=== PATIENT | male | born 1965 | race African-American/Black ===

== ENCOUNTER 2016-12-07 13:39 | Inpatient (IN) | payer OTHER ==
[~2016-12-07] VITALS: Ht 176.5 cm; Wt 50.9 kg
[~2016-12-07 13:39] MED LIST: METH-37 PO; OXYC-323 PO; TRAM-29 PO
[2016-12-07] MEDS ORDERED: IV NORMAL SALINE 1000ML BAG 1,000 ML IV ONE ×3 (14:30→15:15)
[2016-12-07] MEDS ORDERED: KETOROLAC TROMETHAMINE 30 MG/ML SYRINGE. IV ONE (14:30)
--- NOTE | 2016-12-07 14:41 | RAD ---
Exam: AP portable chest. History: Weakness, bilateral leg pain. Comparison: 05/16/2014. Findings: The heart and mediastinal structures are within normal limits for size. Lungs are without infiltrate. No pneumothorax or pleural effusion is appreciated. Emphysematous changes of lungs are seen. Both lungs demonstrate mild interstitial densities. Impression: 1. Bilateral interstitial densities. Findings cup represent fibrotic change versus atypical pneumonia.
[2016-12-07 14:51] LABS: BASO # 0.1 x10^3/uL (0.0-0.2); BASO % 1 % (0-3); EOS % 0 % (0-3); HEMATOCRIT 54.2 % (39.0-53.0); HEMOGLOBIN 18.2 g/dL (13.0-17.5); LYMPH # 0.6 x10^3/uL (1.0-4.8); LYMPH % 3 % (24-48); MEAN CORPUSCULAR HEMOGLOBIN 30 pg (25-35); MEAN CORPUSCULAR HGB CONC 34 g/dL (31-37); MEAN CORPUSCULAR VOLUME 89 fL (79-100); MONO % 9 % (0-9); NEUT % 88 % (31-73); PLATELET COUNT 288 x10^3/uL (140-400); RED BLOOD COUNT 6.06 x10^6/uL (4.30-5.70); RED CELL DISTRIBUTION WIDTH 13.9 % (11.5-14.5); WHITE BLOOD COUNT 19.4 x10^3/uL (4.0-11.0)
[2016-12-07 14:52] LABS: CALCIUM 7.9 mg/dL (8.5-10.1); CREATININE 6.1 mg/dL (0.7-1.3); GFR 11.9
[2016-12-07] MEDS ORDERED: CEFTRIAXONE 1GM IVPB FOR OMNI 50 ML IV ONE (15:15)
[2016-12-07] MEDS ORDERED: AZITHRMYCN 500MG IVPB FOR OMNI 250 ML IV ONE (15:15)
--- NOTE | 2016-12-07 15:15 | EKG ---
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
--- NOTE | 2016-12-07 15:27 | PHYS DOC ---
Past Medical History Past Medical History: Other Additional Past Medical Histor: hernia Past Surgical History: No Surgical History Alcohol Use: Occasionally Drug Use: Marijuana Adult General Chief Complaint Chief Complaint: WEAKNESS/GENERALIZED HPI HPI This is a 51-year-old male who presents with generalized malaise and weakness for the last week with decreased by mouth intake over this time as well. He denies any specific pain complaints but does state he has some mild numbness and tingling in his bilateral lower extremities. Patient states he does not follow with a primary doctor and is a regular smoker but denies any drug use. He does not take any medications. He reports subjective fever as well with his symptoms over the last several days. Review of Systems Review of Systems Constitutional: Has fever, has chills [] Eyes: Denies change in visual acuity, redness, or eye pain [] HENT: Denies nasal congestion or sore throat [] Respiratory: Has cough, has shortness of breath [] Cardiovascular: No additional information not addressed in HPI [] GI: Denies abdominal pain, nausea, vomiting, bloody stools or diarrhea [] : Denies dysuria or hematuria [] Musculoskeletal: Denies back pain or joint pain [] Integument: Denies rash or skin lesions [] Neurologic: Denies headache, focal weakness or sensory changes [] Endocrine: Denies polyuria or polydipsia [] Current Medications Current Medications Current Medications Medications (Trade) Dose Ordered Sig/[facility] Start Time Stop Time Status Last Admin Dose Admin Ketorolac Tromethamine 30 mg 30 mg 1X ONCE 12/07/16 14:30 12/07/16 14:31 DC 12/07/16 14:34 30 MG Sodium Chloride (Iv Sodium Chloride 0.9% 1000ml Bag) 1,000 ml @ 1,000 mls/hr 1X ONCE 12/07/16 14:30 12/07/16 15:29 DC 12/07/16 14:34 1,000 MLS/HR Allergies Allergies Allergies Coded Allergies Type Severity Reaction Last Updated Verified metoclopramide Adverse Reaction Intermediate hyperactivity 12/28/15 No Physical Exam Physical Exam Constitutional: Cachectic, poorly nourished, no acute distress, mildly toxic appearance. [] HENT: Normocephalic, atraumatic, bilateral external ears normal, oropharynx dry , no oral exudates, nose normal. [] Eyes: PERRLA, EOMI, conjunctiva normal, no discharge. [] Neck: Normal range of motion, no tenderness, supple, no stridor. [] Cardiovascular:Heart rate tachycardic with regular rhythm, no murmur [] Lungs & Thorax: Bilateral breath sounds clear to auscultation [] Abdomen: Bowel sounds normal, soft, no tenderness, no masses, no pulsatile masses. [] Skin: Warm, dry, no erythema, no rash. [] Back: No tenderness, no CVA tenderness. [] Extremities: No tenderness, no cyanosis, no clubbing, ROM intact, no edema. [] Neurologic: Alert and oriented X 3, normal motor function, normal sensory function, no focal deficits noted. [] Psychologic: Affect normal, judgement normal, mood normal. [] Current Patient Data Vital Signs Vital Signs Date Time Temp Pulse Resp B/P Pulse Ox O2 Delivery O2 Flow Rate FiO2 12/07/16 14:57 108 18 130/77 Room Air 12/07/16 14:27 91 12/07/16 14:02 97.6 97.6 Lab Values Laboratory Tests Test 12/07/16 14:25 12/07/16 14:30 White Blood Count 19.4x10^3/uL (4.0-11.0) H Red Blood Count 6.06x10^6/uL (4.30-5.70) H Hemoglobin 18.2g/dL (13.0-17.5) H Hematocrit 54.2% (39.0-53.0) H Mean Corpuscular Volume 89fL (79-100) Mean Corpuscular Hemoglobin 30pg (25-35) Mean Corpuscular Hemoglobin Concent 34g/dL (31-37) Red Cell Distribution Width 13.9% (11.5-14.5) Platelet Count 288x10^3/uL (140-400) Neutrophils (%) (Auto) 88% (31-73) H Lymphocytes (%) (Auto) 3% (24-48) L Monocytes (%) (Auto) 9% (0-9) Eosinophils (%) (Auto) 0% (0-3) Basophils (%) (Auto) 1% (0-3) Neutrophils # (Auto) 17.0x10^3uL (1.8-7.7) H Lymphocytes # (Auto) 0.6x10^3/uL (1.0-4.8) L Monocytes # (Auto) 1.7x10^3/uL (0.0-1.1) H Eosinophils # (Auto) 0.0x10^3/uL (0.0-0.7) Basophils # (Auto) 0.1x10^3/uL (0.0-0.2) Segmented Neutrophils % 71% (35-66) H Band Neutrophils % 20% (0-9) H Lymphocytes % 6% (24-48) L Monocytes % 3% (0-10) Toxic Granulation Present Toxic Vacuolation Present Dohle Bodies Present Platelet Estimate Adequate (ADEQUATE) Sodium Level 124mmol/L (136-145) L Potassium Level 5.0mmol/L (3.5-5.1) Chloride Level 83mmol/L (98-107) L Carbon Dioxide Level 20mmol/L (21-32) L Anion Gap 21 (6-14) H Blood Urea Nitrogen 73mg/dL (8-26) H Creatinine 6.1mg/dL (0.7-1.3) H Estimated GFR (Cockcroft-Gault) 11.9 Glucose Level 138mg/dL (70-99) H Lactic Acid Level 4.2mmol/L (0.4-2.0) *H Calcium Level 7.9mg/dL (8.5-10.1) L Influenza Type A Antigen Negative (NEGATIVE) Influenza Type B Antigen Negative (NEGATIVE) Laboratory Tests 12/07/16 14:25 Laboratory Tests 12/07/16 14:25 EKG EKG EKG is interpreted by me shows a sinus tachycardia with a rate of 115 bpm. There is mild ST abnormalities seen in the inferior leads but no reciprocal changes are noted. This EKG does not meet STEMI criteria at this time. Repeat EKG taken at 1611 shows a normal sinus rhythm with rate of 97 bpm. Normal intervals. There continues to be no evidence of acute ischemia on this EKG. Radiology/Procedures Radiology/Procedures One view of the chest as interpreted by me and the radiologist shows bilateral interstitial densities with possible atypical pneumonia. I believe there to be a right-sided infiltrate. Course & Med Decision Making Course & Med Decision Making Pertinent Labs and Imaging studies reviewed. (See chart for details) This 51-year-old male who presents with dehydration, acute renal failure, and likely community acquired pneumonia will be admitted to hospital. Patient was started on Rocephin and Zithromax therapy for likely travel rn acquired pneumonia. Patient was also given 2 L of normal saline. He'll be placed on a maintenance rate of 150 mL an hour with nephrology consult for his renal function. His case was discussed with the hospitalist, Dr. Sarmiento, who agreed to admit the patient for further evaluation and treatment. His laboratory workup shows a leukocytosis and acute renal failure with an elevated BUN/ creatinine ratio. I believe the likely source of his elevated white count to be dehydration and possible pneumonia. Dragon Disclaimer Dragon Disclaimer This electronic medical record was generated, in whole or in part, using a voice recognition dictation system. Departure Departure Impression: Primary Impression: ARF (acute renal failure) Additional Impression: CAP (community acquired pneumonia) Disposition: 09 ADMITTED INPATIENT Admitting Physician: Crissy Sarmiento Condition: STABLE Referrals: NO PCP (PCP) Problem Qualifiers MARGARET DIAZ DO Dec 07, 2016 15:27
[2016-12-07 15:37] LABS: PLT ESTIMATE ADEQUATE (ADEQUATE); TOXIC GRANULATION PRESENT; TOXIC VACUOLATION PRESENT
[2016-12-07 15:38] LABS: OBC FLU VALID
[2016-12-07] MEDS ORDERED: FAMOTIDINE 20 MG/2 ML VIAL IVP ONE (15:45)
--- NOTE | 2016-12-07 15:47 | ACF ---
Admission Forms Criteria PNEUMONIA, COMMUNITY ACQUIRED Clinical Indications for Admission to Inpatient Care ( Place 'X' for any and all applicable criteria): Admission is indicated for ANY ONE of the following (1)(2)(3): [ ]I. Hypoxemia indicated by ANY ONE of the following: [ ]a) Oxygen saturation less than 90% while breathing room air [ ]b) PO2 less than 60 mm Hg (8.0 kPa) while breathing room air [ ]c) Chronic lung disease with significant deterioration from baseline oxygenation [ ]II. Appropriate diagnostic testing and treatment unavailable in outpatient or recovery facility (eg,testing or infection control measures unavailable(10) [ ]III. Moderate-risk or high-risk category patients (Pneumonia Severity Index (PSI) class IV or V, or CURB-65 score of 3 or greater). [ ]IV. Outpatient treatment failure as indicated by ANY ONE of the following(9) : [ ]a) Failure to respond to antibiotic (eg, resistant organism) [ ]b) Clinically significant adverse effects from medication (eg, vomiting) [ ]c) Complications of pneumonia (eg, empyema, bacteremia) [ ]d) Significant worsening of comorbid cond necessitating inpatient care (eg, chronic heart failure) [ ]V. Intermediate-risk category patients (eg, PSI class III or CURB-65 score 2) who do not improve with initial therapy and observation. [ ]. Immunocompromised patients (eg, AIDS, chronic steroid use) at moderate or high risk based on clinical evaluation. [ ]VII. Complicated pleural effusions (eg, exudative, loculated) [ ]VIII.Hemodynamic instability [ ] IX. Altered mental status that is severe or persistent. [X]X. Dehydration that is severe or persistent. [ ]XI. Bacteremia [ ]XII. Respiratory finding (eg. tachypnea) that do not respond to outpatient or observation care treatment Extended stay beyond goal length of stay may be needed for (20) [ ]a) Unclear diagnosis [ ]b) Pleural disease [ ]c) Severe pneumonia or treatment failure (25 [ ]d) Respiratory failure (anticipate invasive or noninvasive ventilatory support) [ ]e) Abnormal serum electrolytes (serum Na concentration less than 135 mEq/L (mmol/L) (32)(33) [ ]f) Clinically significant comorbid illness (eg, heart failure, atrial fibrillation with rapid heart rate, alcohol withdrawal, renal insufficiency)(34)(35) [ ]g) Comorbid acute exacerbation of COPD(36) [ ]h) Concomitant diagnosis of malignancy that may be associated with malnutrition, immunologic impairment, or bronchial obstruction. [ ]i) Concomitant altered mental status [ ]j) Culture-identified Gram-negative or antibiotic-resistant organism (eg, Pseudomonas, methicillin-resistant Staphylococcus aureus)(30) [ ]k) Healthcare-associated pneumonia The original [employer] content created by [employer] has been revised. The portions of the content which have been revised are identified through the use of italic text or in bold, and [email or web address] has neither reviewed nor approved the modified material. All other unmodified content is copyright [email or web address]. Please see references footnoted in the original [email or web address] edition 2016 Admission Criteria Met?: Yes MARIELA THORNE. Dec 07, 2016 15:47
[2016-12-07] MEDS ORDERED: ONDANSETRON PF 4 MG/2 ML VIAL. IV ONE (16:15)
--- NOTE | 2016-12-07 16:29 | PDOC1 ---
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 Urine has been very dark per milling machinist, At ER, labs show marked dehydration with hemoconcentration hgb 16, WBC 19, creatinine of 6, BUN 73, Na 124. Got 2 boluses NS, admitted for ASHLEY and dehydration with some infiltrates possible on CXR, Pt does smoke, admits to mucousy yellowish cough, Flu a and B at er are neg Past Medical History Cardiovascular: No pertinent hx Pulmonary: No pertinent hx GI: No pertinent hx Heme/Onc: No pertinent hx Hepatobiliary: No pertinent hx Psych: No pertinent hx Rheumatologic: No pertinent hx Infectious disease: No pertinent hx ENT: No pertinent hx Renal/: No pertinent hx Endocrine: No pertinent hx Dermatology: No pertinent hx Past Surgical History Past Surgical History: Hernia Repair, Other Family History Family History: No Significant Social History Smoke: <1 pack per day ALCOHOL: occassional Drugs: None Current Problem List Problem List Problems Medical Problems: (1) ARF (acute renal failure) Status: Acute (2) CAP (community acquired pneumonia) Status: Acute Problems: Current Medications Current Medications Current Medications Ketorolac Tromethamine 30 mg 30 mg 1X ONCE IV Last administered on 12/07/16 14:34; Start 12/07/16 at 14:30; Stop 12/07/16 at 14:31; Status DC Sodium Chloride 1,000 ml @ 1,000 mls/hr 1X ONCE IV Last administered on 14:34; Start 12/07/16 at 14:30; Stop 12/07/16 at 15:29; Status DC Ceftriaxone Sodium 1 gm/ Sodium Chloride 50 ml @ 100 mls/hr Q24H IV ; Start at 15:30 Azithromycin 250 ml @ 250 mls/hr 1X ONCE IV Last administered on 12/07/16 15 :48; Start 12/07/16 at 15:15; Stop 12/07/16 at 16:14; Status DC Sodium Chloride 1,000 ml @ 1,000 mls/hr 1X ONCE IV Last administered on 16:09; Start 12/07/16 at 15:15; Stop 12/07/16 at 16:14; Status DC Ceftriaxone Sodium 50 ml @ 100 mls/hr 1X ONCE IV Last administered on 15:29; Start 12/07/16 at 15:15; Stop 12/07/16 at 15:44; Status DC Sodium Chloride (Iv Sodium Chloride 0.9% 1000ml Bag) 1,000 ml @ 150 mls/hr 1X ONCE IV ; Start 12/07/16 at 15:15; Stop 12/07/16 at 21:54 Famotidine (Pepcid) 20 mg 1X ONCE IVP Last administered on 12/07/16 15:48; Start 12/07/16 at 15:45; Stop 12/07/16 at 15:46; Status DC Ondansetron HCl (Zofran) 4 mg 1X ONCE IV Last administered on 12/07/16 16:09 ; Start 12/07/16 at 16:15; Stop 12/07/16 at 16:16; Status DC Active Scripts Active Ultram (Tramadol Hcl) 50 Mg Tablet 50 Mg PO Q6H PRN Robaxin (Methocarbamol) 500 Mg Tablet 500 Mg PO QID Reported Percocet 5-325 Mg Tablet (Oxycodone/Acetaminophen) 1 Each Tablet 1-2 Tab PO Q4HRS Allergies Allergies: Coded Allergies: metoclopramide (Unverified Adverse Reaction, Intermediate, hyperactivity, 12/28/15) ROS Review of System weak, fatigue, weight loss, diarrhea, dark urine, all else is neg Physical Exam General: No acute distress, Other (dec skin turgor, > 2 secs skin pinch test, looks cachectic) HEENT: Atraumatic, PERRLA Lungs: Clear to auscultation Heart: S1S2, RRR, no thrills, no rubs Cardiovascular: S1, S2 Abdomen: Normal bowel sounds, Soft, No tenderness, No hepatosplenomegaly, No masses Male Genitals Exam: normal genitalia Rectal Exam: not examined Extremities: No clubbing, No cyanosis, No edema, Normal pulses, No tenderness/ swelling Skin: Other (as above) Neuro: Normal gait, Normal speech, Strength at 5/5 X4 ext, Normal tone, Sensation intact, Cranial nerves 3-12 NL, Reflexes 2+ Psych/Mental Status: Mental status NL, Mood NL Vitals Vitals Vital Signs Date Time Temp Pulse Resp B/P Pulse Ox O2 Delivery O2 Flow Rate FiO2 12/07/16 15:27 98 23 134/58 95 Room Air 12/07/16 14:02 97.6 97.6 Labs Labs Laboratory Tests Test 12/07/16 14:25 12/07/16 14:30 White Blood Count 19.4x10^3/uL (4.0-11.0) Red Blood Count 6.06x10^6/uL (4.30-5.70) Hemoglobin 18.2g/dL (13.0-17.5) Hematocrit 54.2% (39.0-53.0) Mean Corpuscular Volume 89fL (79-100) Mean Corpuscular Hemoglobin 30pg (25-35) Mean Corpuscular Hemoglobin Concent 34g/dL (31-37) Red Cell Distribution Width 13.9% (11.5-14.5) Platelet Count 288x10^3/uL (140-400) Neutrophils (%) (Auto) 88% (31-73) Lymphocytes (%) (Auto) 3% (24-48) Monocytes (%) (Auto) 9% (0-9) Eosinophils (%) (Auto) 0% (0-3) Basophils (%) (Auto) 1% (0-3) Neutrophils # (Auto) 17.0x10^3uL (1.8-7.7) Lymphocytes # (Auto) 0.6x10^3/uL (1.0-4.8) Monocytes # (Auto) 1.7x10^3/uL (0.0-1.1) Eosinophils # (Auto) 0.0x10^3/uL (0.0-0.7) Basophils # (Auto) 0.1x10^3/uL (0.0-0.2) Segmented Neutrophils % 71% (35-66) Band Neutrophils % 20% (0-9) Lymphocytes % 6% (24-48) Monocytes % 3% (0-10) Toxic Granulation Present Toxic Vacuolation Present Dohle Bodies Present Platelet Estimate Adequate (ADEQUATE) Sodium Level 124mmol/L (136-145) Potassium Level 5.0mmol/L (3.5-5.1) Chloride Level 83mmol/L (98-107) Carbon Dioxide Level 20mmol/L (21-32) Anion Gap 21 (6-14) Blood Urea Nitrogen 73mg/dL (8-26) Creatinine 6.1mg/dL (0.7-1.3) Estimated GFR (Cockcroft-Gault) 11.9 Glucose Level 138mg/dL (70-99) Calcium Level 7.9mg/dL (8.5-10.1) Influenza Type A Antigen Negative (NEGATIVE) Influenza Type B Antigen Negative (NEGATIVE) Laboratory Tests Test 12/07/16 14:25 12/07/16 14:30 White Blood Count 19.4x10^3/uL (4.0-11.0) Red Blood Count 6.06x10^6/uL (4.30-5.70) Hemoglobin 18.2g/dL (13.0-17.5) Hematocrit 54.2% (39.0-53.0) Mean Corpuscular Volume 89fL (79-100) Mean Corpuscular Hemoglobin 30pg (25-35) Mean Corpuscular Hemoglobin Concent 34g/dL (31-37) Red Cell Distribution Width 13.9% (11.5-14.5) Platelet Count 288x10^3/uL (140-400) Neutrophils (%) (Auto) 88% (31-73) Lymphocytes (%) (Auto) 3% (24-48) Monocytes (%) (Auto) 9% (0-9) Eosinophils (%) (Auto) 0% (0-3) Basophils (%) (Auto) 1% (0-3) Neutrophils # (Auto) 17.0x10^3uL (1.8-7.7) Lymphocytes # (Auto) 0.6x10^3/uL (1.0-4.8) Monocytes # (Auto) 1.7x10^3/uL (0.0-1.1) Eosinophils # (Auto) 0.0x10^3/uL (0.0-0.7) Basophils # (Auto) 0.1x10^3/uL (0.0-0.2) Segmented Neutrophils % 71% (35-66) Band Neutrophils % 20% (0-9) Lymphocytes % 6% (24-48) Monocytes % 3% (0-10) Toxic Granulation Present Toxic Vacuolation Present Dohle Bodies Present Platelet Estimate Adequate (ADEQUATE) Sodium Level 124mmol/L (136-145) Potassium Level 5.0mmol/L (3.5-5.1) Chloride Level 83mmol/L (98-107) Carbon Dioxide Level 20mmol/L (21-32) Anion Gap 21 (6-14) Blood Urea Nitrogen 73mg/dL (8-26) Creatinine 6.1mg/dL (0.7-1.3) Estimated GFR (Cockcroft-Gault) 11.9 Glucose Level 138mg/dL (70-99) Calcium Level 7.9mg/dL (8.5-10.1) Influenza Type A Antigen Negative (NEGATIVE) Influenza Type B Antigen Negative (NEGATIVE) VTE Prophylaxis Ordered VTE Prophylaxis Devices: Yes VTE Pharmacological Prophylaxi: Yes Assessment/Plan Assessment/Plan 1. ASHLEY sec to GI loss 2. Acute diarrhea 3. SMoker 4. R lung field haziness, scarring/fibrosis in a smoker vs CAP/acute bronchitis 5. MOd to severe PCM 6. Hemoconcentration 7. Hyponatremia 8. Hyperkalemia 9. SIRS pOA, no sepsis yet 10. GAp metabolic acidosis sec to GI loss PLAN: Aggressive iVF - 150cc/hr BMP daily So far no UO yet at ER, bladder scan if needed and askew tonight if needed for accurate I and O Renal consult Check UA CAP coverage Nicotne patch HOld vanessa toxic agents Ok to resume home pain meds Check stool cx and c diff, if neg then imodium seen at ER Nutirion consult DEMETRIUS MALDONADO MD Dec 07, 2016 16:29
[2016-12-07] MEDS ORDERED: OXYCODONE/APAP 5/325 TABLET. PO PRN (16:30)
[2016-12-07] MEDS ORDERED: ZOLPIDEM 5 MG TABLET. PO PRN (16:30)
[2016-12-07] MEDS ORDERED: ONDANSETRON PF 4 MG/2 ML VIAL. IV PRN (16:30)
[2016-12-07] MEDS ORDERED: NICOTINE 21MG PATCH. TD PRN (16:30)
[2016-12-07 16:45] VITALS: BP 132/55
[2016-12-07] MEDS: METHOCARBAMOL 500 MG TABLET PO SCH ×2 (17:11→21:19)
[2016-12-07] MEDS: TRAMADOL 50 MG TABLET. PO PRN (17:11)
[2016-12-07 18:48] LABS: BILIRUBIN,URINE SMALL (NEG); GLUCOSE,URINE NEGATIVE (NEG); NITRITE,URINE NEGATIVE (NEG); PROTEIN,URINE 100 mg/dL (NEG-TRACE); UROBILINOGEN,URINE 0.2 mg/dL (0.2 mg/dL)
[2016-12-07 18:57] LABS: BACTERIA,URINE 0 /HPF (0-FEW); RBC,URINE 0 /HPF (0-2)
[2016-12-07 19:08] VITALS: BP 112/72
[2016-12-07] MEDS ORDERED: INFLUENZA VAX SCREEN BY RX. MC ONE (22:45)
[2016-12-07] MEDS ORDERED: PNEUMOCOCCAL VAX SCREEN BY RX. MC ONE (22:45)
[2016-12-07 22:53] VITALS: BP 114/71
[2016-12-07] MEDS: IV NORMAL SALINE 1000ML BAG 1,000 ML IV SCH (23:10)
[2016-12-08] VITALS (25 sets, daily range): BP systolic 34–171; BP diastolic 23–122
[2016-12-08] MEDS: IV NORMAL SALINE 1000ML BAG 1,000 ML IV SCH ×2 (01:06→06:38)
[2016-12-08] MEDS: MORPHINE SULFATE 2 MG/ML DISP.SYRIN. IV PRN (05:28)
[2016-12-08 05:36] LABS: BASO # 0.1 x10^3/uL (0.0-0.2); BASO % 0 % (0-3); EOS % 0 % (0-3); HEMATOCRIT 45.6 % (39.0-53.0); HEMOGLOBIN 15.1 g/dL (13.0-17.5); LYMPH # 0.6 x10^3/uL (1.0-4.8); LYMPH % 4 % (24-48); MEAN CORPUSCULAR HEMOGLOBIN 30 pg (25-35); MEAN CORPUSCULAR HGB CONC 33 g/dL (31-37); MEAN CORPUSCULAR VOLUME 92 fL (79-100); MONO % 9 % (0-9); NEUT % 87 % (31-73); PLATELET COUNT 266 x10^3/uL (140-400); RED BLOOD COUNT 4.96 x10^6/uL (4.30-5.70); RED CELL DISTRIBUTION WIDTH 14.3 % (11.5-14.5); WHITE BLOOD COUNT 16.8 x10^3/uL (4.0-11.0)
[2016-12-08 05:47] LABS: CALCIUM 6.9 mg/dL (8.5-10.1); CREATININE 3.8 mg/dL (0.7-1.3); GFR 20.6; POTASSIUM 4.7 mmol/L (3.5-5.1)
[2016-12-08] MEDS ORDERED: LABETALOL 20 MG/4 ML DISP.SYRIN. IVP ONE (08:30)
--- NOTE | 2016-12-08 08:33 | RAD ---
EXAM: Chest, 2 views. HISTORY: Difficulty breathing. COMPARISON: 12/07/2016. FINDINGS: A frontal view of the chest is obtained. There has been slight interval increase in lateral lower lobe infiltrate. There is emphysema with biapical bleb formation. There is no effusion or pneumothorax. The heart is normal in size for portable technique. IMPRESSION: 1. Slight interval increase in suspected bilateral lower lobe interstitial infiltrate. 2. Emphysema.
[2016-12-08] MEDS ORDERED: ALPRAZOLAM 0.5 MG TABLET PO ONE (08:45)
[2016-12-08] MEDS ORDERED: PNEUMOC CONJ VACC 23-VALENT 0.5 ML VIAL. VAX IM ONE (09:00)
[2016-12-08] MEDS ORDERED: FLU VACC QUAD 2016-17 (36MOS+)/PF 0.5 ML SYRINGE. VAX IM ONE (09:00)
[2016-12-08] MEDS ORDERED: ASPIRIN 81 MG TAB.CHEW PO ONE (09:30)
[2016-12-08] MEDS ORDERED: HEPARIN for IV BOLUS 10,000 UNIT/10 ML VIAL. IV ONE (09:30)
--- NOTE | 2016-12-08 09:32 | EKG ---
[facility] [address] [place] [address] Test Date: 2016-12-08 Test Time: 09:09:44 Pat Name: MARLEN CRUZ Department: Room: [facility] Gender: M Production Control Clerk: IZABELLA : 1965 Requested By: DEMETRIUS MALDONADO Order Number: [id number] Reading MD: Tariq Sheriff Measurements Intervals [place] Rate: 89 P: 68 AR: 184 QRS: 76 QRSD: 88 T: 80 QT: 338 QTc: 412 Interpretive Statements SINUS RHYTHM SEPTAL INFARCT Electronically Signed On 12-12-2016 10:27:56 CATTERY OPERATOR by Tariq Sheriff
[2016-12-08] MEDS ORDERED: MIDAZOLAM PREMIX 100 ML IV ONE (09:52)
--- NOTE | 2016-12-08 09:59 | PDOC2 ---
Consult: 51-year-old male who I was called to the floor to help assist for a CODE BLUE around 9:00 AM on December 08, 2016. On arrival the patient was in PEA from a bradycardic arrest. The patient had received 1 mg of epinephrine and a half milligram of atropine tired to my arrival on the scene. Pretty soon after I arrived we were able to get pulses back. The patient was not mentating well. He did not respond to painful stimuli. He did not make verbal noises to painful stimuli. He did not open his eyes to painful stimuli. Because of the patient's mental status, the patient was intubated. Bilateral breath sounds. Absent gastric sounds. End-tidal CO2 color change present. Succinylcholine and etomidate used during RSI. No immediate complications from the procedure. EKG was handed to me after intubation which showed ST segment elevation without reciprocal depressions. Dr. Montoya present at the time of resuscitation. I communicated to nursing staff and Dr. Montoya my concern for ST changes. Dr. Sheriff notified immediately. Asa and heparin ordered. Previous EKG shows similar ST changes. Care then transferred to Dr. Montoya to continue eval workup and care. CORAL IBARRA MD Dec 08, 2016 09:59
[2016-12-08] MEDS ORDERED: PROPOFOL 100 ML IV PRN (10:00)
--- NOTE | 2016-12-08 10:06 | PDOC2 ---
AYAKA BUTLER SPENT GRAIN DRYER 12/08/16 1006: CARDIAC CONSULT DATE OF CONSULT Date of Consult DATE: 12/08/16 TIME: 09:57 REASON FOR CONSULT Reason for Consult: PEA arrest ST changes REFERRING PHYSICIAN Referring Physician: Dr. Montoya SOURCE Source: Chart review HISTORY OF PRESENT ILLNESS HISTORY OF PRESENT ILLNESS This is a 51 yo male, with no previous significant medical history, who presented with complaints of generalized weakness, fatigue, diarrhea x5 days, and decrease appetite. Subjective fevers per ER documentation. HPI obtained from chart review at patient is presently intubated post-arrest. Pateint noted with leukocytosis, ASHLEY with Cr of 6.1, and lactic acidosis upon admission. This morning, RN noted patient to be in respiratory distress, rapid response was called. Patient subsequently went non-responsive and arrested; PEA was noted. ROSC was obtained after 8 minutes of resuscitation and epi x2. EKG was obtained post-code, which identified diffuse ST changes and prompted this consult. PAST MEDICAL HISTORY Cardiovascular: No pertinent hx Pulmonary: No pertinent hx CENTRAL NERVOUS SYSTEM: Other (no pertinent hx) GI: No pertinent hx Heme/Onc: No pertinent hx Hepatobiliary: No pertinent hx Psych: No pertinent hx Musculoskeletal: low back pain Rheumatologic: No pertinent hx Infectious disease: No pertinent hx ENT: No pertinent hx Renal/: No pertinent hx Endocrine: No pertinent hx Dermatology: No pertinent hx PAST SURGICAL HISTORY Past Surgical History: Hernia Repair SOCIAL HISTORY Smoke: <1 pack per day ALCOHOL: other (daily) Drugs: Marijuana CURRENT MEDICATIONS CURRENT MEDICATIONS Current Medications Medications (Trade) Dose Ordered Sig/Flakito Route PRN Reason Start Time Stop Time Status Last Admin Dose Admin Ketorolac Tromethamine 30 mg 30 mg 1X ONCE IV 12/07/16 14:30 12/07/16 14:31 DC 12/07/16 14:34 Sodium Chloride 1,000 ml @ 1,000 mls/hr 1X ONCE IV 12/07/16 14:30 12/07/16 15:29 DC 12/07/16 14:34 Azithromycin 250 ml @ 250 mls/hr 1X ONCE IV 12/07/16 15:15 12/07/16 16:14 DC 12/07/16 15:48 Sodium Chloride 1,000 ml @ 1,000 mls/hr 1X ONCE IV 12/07/16 15:15 12/07/16 16:14 DC 12/07/16 16:09 Ceftriaxone Sodium 50 ml @ 100 mls/hr 1X ONCE IV 12/07/16 15:15 12/07/16 15:44 DC 12/07/16 15:29 Sodium Chloride (Iv Sodium Chloride 0.9% 1000ml Bag) 1,000 ml @ 150 mls/hr 1X ONCE IV 12/07/16 15:15 12/07/16 21:54 DC 12/07/16 18:10 Famotidine (Pepcid) 20 mg 1X ONCE IVP 12/07/16 15:45 12/07/16 15:46 DC 12/07/16 15:48 Ondansetron HCl 4 mg 4 mg 1X ONCE IV 12/07/16 16:15 12/07/16 16:16 DC 12/07/16 16:09 Sodium Chloride (Iv Sodium Chloride 0.9% 1000ml Bag) 1,000 ml @ 150 mls/hr Q6H40M IV 12/07/16 16:30 12/08/16 06:38 Morphine Sulfate 2 mg PRN Q2HR PRN IV PAIN 12/07/16 16:30 12/08/16 05:28 Zolpidem Tartrate (Ambien) 5 mg PRN QHS PRN PO INSOMNIA 12/07/16 16:30 12/08/16 01:06 Methocarbamol (Robaxin) 500 mg QID PO 12/07/16 17:00 12/07/16 21:19 Tramadol HCl (Ultram) 50 mg PRN Q6HRS PRN PO MODERATE PAIN 12/07/16 16:30 12/07/16 17:11 Labetalol HCl (Normodyne) 10 mg 1X ONCE IVP 12/08/16 08:30 12/08/16 08:35 DC 12/08/16 08:56 Alprazolam (Xanax) 0.5 mg 1X ONCE PO 12/08/16 08:45 12/08/16 08:46 DC 12/08/16 08:40 ALLERGIES ALLERGIES: Coded Allergies: metoclopramide (Unverified Adverse Reaction, Intermediate, hyperactivity, 12/28/15) ROS Review of System unobtainable. PHYSICAL EXAM General: No acute distress, Other (intubated/sedated ) HEENT: Atraumatic Lungs: Other (intubated with mechanical ventillation ) Heart: Regular rate, Normal S1, Normal S2, Other (distant heart tones) Abdomen: Soft Extremities: No edema, Other (DP pulses not palpable ) Skin: No significant lesion Neuro: Other (unable to assess) Psych/Mental Status: Other (sedated) MUSCULOSKELETAL: No swelling VITALS VITALS Vital Signs Date Time Temp Pulse Resp B/P Pulse Ox O2 Delivery O2 Flow Rate FiO2 12/08/16 08:56 128 186/127 12/08/16 08:30 24 91 Nasal Cannula 4.0 12/08/16 07:25 96.5 96.5 LABS Lab: Laboratory Tests Test 12/07/16 14:25 12/07/16 14:30 12/07/16 16:55 12/07/16 18:40 White Blood Count 19.4x10^3/uL (4.0-11.0) Red Blood Count 6.06x10^6/uL (4.30-5.70) Hemoglobin 18.2g/dL (13.0-17.5) Hematocrit 54.2% (39.0-53.0) Mean Corpuscular Volume 89fL (79-100) Mean Corpuscular Hemoglobin 30pg (25-35) Mean Corpuscular Hemoglobin Concent 34g/dL (31-37) Red Cell Distribution Width 13.9% (11.5-14.5) Platelet Count 288x10^3/uL (140-400) Neutrophils (%) (Auto) 88% (31-73) Lymphocytes (%) (Auto) 3% (24-48) Monocytes (%) (Auto) 9% (0-9) Eosinophils (%) (Auto) 0% (0-3) Basophils (%) (Auto) 1% (0-3) Neutrophils # (Auto) 17.0x10^3uL (1.8-7.7) Lymphocytes # (Auto) 0.6x10^3/uL (1.0-4.8) Monocytes # (Auto) 1.7x10^3/uL (0.0-1.1) Eosinophils # (Auto) 0.0x10^3/uL (0.0-0.7) Basophils # (Auto) 0.1x10^3/uL (0.0-0.2) Segmented Neutrophils % 71% (35-66) Band Neutrophils % 20% (0-9) Lymphocytes % 6% (24-48) Monocytes % 3% (0-10) Toxic Granulation Present Toxic Vacuolation Present Dohle Bodies Present Platelet Estimate Adequate (ADEQUATE) Sodium Level 124mmol/L (136-145) Potassium Level 5.0mmol/L (3.5-5.1) Chloride Level 83mmol/L (98-107) Carbon Dioxide Level 20mmol/L (21-32) Anion Gap 21 (6-14) Blood Urea Nitrogen 73mg/dL (8-26) Creatinine 6.1mg/dL (0.7-1.3) Estimated GFR (Cockcroft-Gault) 11.9 Glucose Level 138mg/dL (70-99) Lactic Acid Level 4.2mmol/L (0.4-2.0) 2.9mmol/L (0.4-2.0) Calcium Level 7.9mg/dL (8.5-10.1) Influenza Type A Antigen Negative (NEGATIVE) Influenza Type B Antigen Negative (NEGATIVE) Urine Collection Type Unknown Urine Color Yellow Urine Clarity Turbid Urine pH 5.0 Urine Specific [place] 1.020 Urine Protein 100mg/dL (NEG-TRACE) Urine Glucose (UA) Negativemg/dL (NEG) Urine Ketones (Stick) Negativemg/dL (NEG) Urine Blood Moderate (NEG) Urine Nitrite Negative (NEG) Urine Bilirubin Small (NEG) Urine Urobilinogen Dipstick 0.2mg/dL (0.2 mg/dL) Urine Leukocyte Esterase Negative (NEG) Urine RBC 0/HPF (0-2) Urine WBC 1-4/HPF (0-4) Urine Amorphous Sediment Present/HPF Urine Bacteria 0/HPF (0-FEW) Urine Hyaline Casts Many/HPF Urine Granular Casts Few/HPF Test 12/08/16 04:55 White Blood Count 16.8x10^3/uL (4.0-11.0) Red Blood Count 4.96x10^6/uL (4.30-5.70) Hemoglobin 15.1g/dL (13.0-17.5) Hematocrit 45.6% (39.0-53.0) Mean Corpuscular Volume 92fL (79-100) Mean Corpuscular Hemoglobin 30pg (25-35) Mean Corpuscular Hemoglobin Concent 33g/dL (31-37) Red Cell Distribution Width 14.3% (11.5-14.5) Platelet Count 266x10^3/uL (140-400) Neutrophils (%) (Auto) 87% (31-73) Lymphocytes (%) (Auto) 4% (24-48) Monocytes (%) (Auto) 9% (0-9) Eosinophils (%) (Auto) 0% (0-3) Basophils (%) (Auto) 0% (0-3) Neutrophils # (Auto) 14.6x10^3uL (1.8-7.7) Lymphocytes # (Auto) 0.6x10^3/uL (1.0-4.8) Monocytes # (Auto) 1.5x10^3/uL (0.0-1.1) Eosinophils # (Auto) 0.0x10^3/uL (0.0-0.7) Basophils # (Auto) 0.1x10^3/uL (0.0-0.2) Sodium Level 130mmol/L (136-145) Potassium Level 4.7mmol/L (3.5-5.1) Chloride Level 95mmol/L (98-107) Carbon Dioxide Level 16mmol/L (21-32) Anion Gap 19 (6-14) Blood Urea Nitrogen 64mg/dL (8-26) Creatinine 3.8mg/dL (0.7-1.3) Estimated GFR (Cockcroft-Gault) 20.6 Glucose Level 98mg/dL (70-99) Calcium Level 6.9mg/dL (8.5-10.1) ASSESSMENT/PLAN ASSESSMENT/PLAN 1. Respiratory arrest- PEA- ROSC 2. Respiratory failure s/p intubation 3. Cardiomyopathy 4. Possible pneumonia 5. Sepsis 6. Septic shock 7. Metabolic acidosis 8. ASHLEY, dehydration 9. Hyponatremia 10. Hyperkalemia 11. Polysubstance abuse Recommendations Diffuse ST changes noted on post-code EKG, which were consistent with EKG obtain upon admission (no previous for comparison); does not warrant immediate cath. Troponin level not obtained upon admission as patient presented with GI issues. Troponin elevated as expected post-code- will trend this Echo notable for global hypokineses with moderately impaired LV systolic function. Heparin gtt per cardiovascular protocol. Check lipids. Pressors for BP support as warranted IV antibiotics initiated- recommend ID consult Management of ASHLEY per nephrology In light of additional acute processes, including ASHLEY, pneumonia, sepsis, and acute respiratory failure, do not feel cardiac catheterization would be of significant benefit at this present time; treat medically for now. Continue supportive care and treatment of co-existing conditions. Will follow along closely Problems: FARIDA WRIGHT MD 12/08/16 1645: CARDIAC CONSULT ALLERGIES ALLERGIES: Coded Allergies: metoclopramide (Unverified Adverse Reaction, Intermediate, hyperactivity, 12/28/15) ASSESSMENT/PLAN ASSESSMENT/PLAN Patient seen and examined. Agree with nurse practitioner note. 51-year-old male presenting with what appears to be septic shock in the setting of possible pneumonia. He also has a non-ST elevation myocardial infarction in the setting of cocaine abuse. Currently he has acute renal sufficiency, metabolic acidosis and although he does have a troponin elevation with a global hypokinesis of his left ventricle with ejection fraction of 35% is likely secondary to his acute insults rather than being a true primary cardiac event. We will continue supportive care and upon stabilization of his other medical issues we will consider cardiac catheterization prior to discharge. He may ultimately also benefit from noninvasive testing to ensure that he does not have any further renal sufficiency from contrast exposure with a cardiac catheterization. Thank you for this consultation and we will follow along closely. Agree with current use of vasopressors including levophed and dopamine. Problems: AYAKA BUTLER APRN Dec 08, 2016 10:06 FARIDA WRIGHT MD Dec 08, 2016 16:45
[2016-12-08] MEDS ORDERED: DOPAMINE 400MG/250ML PREMIX 250 ML IV ONE (10:07)
--- NOTE | 2016-12-08 10:09 | PDOC ---
PROGRESS NOTES Chief Complaint Chief Complaint SOA, weak 1. CArdiac arrest PEA (12/08) 2. Acute respiratory failure sec to above intubated (12/08) 3. ASHLEY sec to GI loss 4. Acute diarrhea 5. SMoker 6. R lung field haziness, scarring/fibrosis in a smoker vs CAP/acute bronchitis 5. MOd to severe PCM 7. Hemoconcentration POA 8. Hyponatremia 9. Hyperkalemia 10. SIRS pOA, no sepsis yet 11. GAp metabolic acidosis sec to GI loss History of Present Illness History of Present Illness Code blue today LOst pulse, respi arrrest Was complaining of breathing issues early this AM LAbs better, K better, Creatinine down to 5 from 6 K normalized Rhythm: PEA,REsuscitation done for 8 mins EKG reviewed, some ST wave changes similar to EKG on admission NO trops since admission CXR: IMPRESSION: STAT today 1. Slight interval increase in suspected bilateral lower lobe interstitial infiltrate. 2. Emphysema. Vitals Vitals Vital Signs Date Time Temp Pulse Resp B/P Pulse Ox O2 Delivery O2 Flow Rate FiO2 12/08/16 08:56 128 186/127 12/08/16 08:30 24 91 Nasal Cannula 4.0 12/08/16 07:25 96.5 96.5 Physical Exam General: No acute distress, Other (dec skin turgor, > 2 secs skin pinch test, looks cachectic) Abdomen: Normal bowel sounds, Soft, No tenderness, No hepatosplenomegaly, No masses Extremities: No clubbing, No cyanosis, No edema, Normal pulses, No tenderness/ swelling Skin: Other (as above) Labs LABS Laboratory Tests Test 12/07/16 14:25 12/07/16 14:30 12/07/16 16:55 12/07/16 18:40 White Blood Count 19.4x10^3/uL (4.0-11.0) Red Blood Count 6.06x10^6/uL (4.30-5.70) Hemoglobin 18.2g/dL (13.0-17.5) Hematocrit 54.2% (39.0-53.0) Mean Corpuscular Volume 89fL (79-100) Mean Corpuscular Hemoglobin 30pg (25-35) Mean Corpuscular Hemoglobin Concent 34g/dL (31-37) Red Cell Distribution Width 13.9% (11.5-14.5) Platelet Count 288x10^3/uL (140-400) Neutrophils (%) (Auto) 88% (31-73) Lymphocytes (%) (Auto) 3% (24-48) Monocytes (%) (Auto) 9% (0-9) Eosinophils (%) (Auto) 0% (0-3) Basophils (%) (Auto) 1% (0-3) Neutrophils # (Auto) 17.0x10^3uL (1.8-7.7) Lymphocytes # (Auto) 0.6x10^3/uL (1.0-4.8) Monocytes # (Auto) 1.7x10^3/uL (0.0-1.1) Eosinophils # (Auto) 0.0x10^3/uL (0.0-0.7) Basophils # (Auto) 0.1x10^3/uL (0.0-0.2) Segmented Neutrophils % 71% (35-66) Band Neutrophils % 20% (0-9) Lymphocytes % 6% (24-48) Monocytes % 3% (0-10) Toxic Granulation Present Toxic Vacuolation Present Dohle Bodies Present Platelet Estimate Adequate (ADEQUATE) Sodium Level 124mmol/L (136-145) Potassium Level 5.0mmol/L (3.5-5.1) Chloride Level 83mmol/L (98-107) Carbon Dioxide Level 20mmol/L (21-32) Anion Gap 21 (6-14) Blood Urea Nitrogen 73mg/dL (8-26) Creatinine 6.1mg/dL (0.7-1.3) Estimated GFR (Cockcroft-Gault) 11.9 Glucose Level 138mg/dL (70-99) Lactic Acid Level 4.2mmol/L (0.4-2.0) 2.9mmol/L (0.4-2.0) Calcium Level 7.9mg/dL (8.5-10.1) Influenza Type A Antigen Negative (NEGATIVE) Influenza Type B Antigen Negative (NEGATIVE) Urine Collection Type Unknown Urine Color Yellow Urine Clarity Turbid Urine pH 5.0 Urine Specific Melbeta 1.020 Urine Protein 100mg/dL (NEG-TRACE) Urine Glucose (UA) Negativemg/dL (NEG) Urine Ketones (Stick) Negativemg/dL (NEG) Urine Blood Moderate (NEG) Urine Nitrite Negative (NEG) Urine Bilirubin Small (NEG) Urine Urobilinogen Dipstick 0.2mg/dL (0.2 mg/dL) Urine Leukocyte Esterase Negative (NEG) Urine RBC 0/HPF (0-2) Urine WBC 1-4/HPF (0-4) Urine Amorphous Sediment Present/HPF Urine Bacteria 0/HPF (0-FEW) Urine Hyaline Casts Many/HPF Urine Granular Casts Few/HPF Test 12/08/16 04:55 White Blood Count 16.8x10^3/uL (4.0-11.0) Red Blood Count 4.96x10^6/uL (4.30-5.70) Hemoglobin 15.1g/dL (13.0-17.5) Hematocrit 45.6% (39.0-53.0) Mean Corpuscular Volume 92fL (79-100) Mean Corpuscular Hemoglobin 30pg (25-35) Mean Corpuscular Hemoglobin Concent 33g/dL (31-37) Red Cell Distribution Width 14.3% (11.5-14.5) Platelet Count 266x10^3/uL (140-400) Neutrophils (%) (Auto) 87% (31-73) Lymphocytes (%) (Auto) 4% (24-48) Monocytes (%) (Auto) 9% (0-9) Eosinophils (%) (Auto) 0% (0-3) Basophils (%) (Auto) 0% (0-3) Neutrophils # (Auto) 14.6x10^3uL (1.8-7.7) Lymphocytes # (Auto) 0.6x10^3/uL (1.0-4.8) Monocytes # (Auto) 1.5x10^3/uL (0.0-1.1) Eosinophils # (Auto) 0.0x10^3/uL (0.0-0.7) Basophils # (Auto) 0.1x10^3/uL (0.0-0.2) Sodium Level 130mmol/L (136-145) Potassium Level 4.7mmol/L (3.5-5.1) Chloride Level 95mmol/L (98-107) Carbon Dioxide Level 16mmol/L (21-32) Anion Gap 19 (6-14) Blood Urea Nitrogen 64mg/dL (8-26) Creatinine 3.8mg/dL (0.7-1.3) Estimated GFR (Cockcroft-Gault) 20.6 Glucose Level 98mg/dL (70-99) Calcium Level 6.9mg/dL (8.5-10.1) Review of Systems Review of Systems intubated Assessment and Plan Assessmemt and Plan Transfer ICU VENt protocol, pulmo critical care consult BOlus iVF Keep NS 150cc.hr - transiently hypotensive , better now (SBP 120s) Stat cards consult CYcle CE Check mag, ca, trops and CK MB Echo Start PPI IV HEaprin for DVT prophy\ Insert askew and maintain Dw ICU and RN CC 30 Problems Medical Problems: (1) ARF (acute renal failure) Status: Acute (2) CAP (community acquired pneumonia) Status: Acute Problems: Comment Review of Relevant I have reviewed the following items immanuel (where applicable) has been applied. Labs Laboratory Tests Test 12/07/16 14:25 12/07/16 14:30 12/07/16 16:55 12/07/16 18:40 White Blood Count 19.4x10^3/uL (4.0-11.0) Red Blood Count 6.06x10^6/uL (4.30-5.70) Hemoglobin 18.2g/dL (13.0-17.5) Hematocrit 54.2% (39.0-53.0) Mean Corpuscular Volume 89fL (79-100) Mean Corpuscular Hemoglobin 30pg (25-35) Mean Corpuscular Hemoglobin Concent 34g/dL (31-37) Red Cell Distribution Width 13.9% (11.5-14.5) Platelet Count 288x10^3/uL (140-400) Neutrophils (%) (Auto) 88% (31-73) Lymphocytes (%) (Auto) 3% (24-48) Monocytes (%) (Auto) 9% (0-9) Eosinophils (%) (Auto) 0% (0-3) Basophils (%) (Auto) 1% (0-3) Neutrophils # (Auto) 17.0x10^3uL (1.8-7.7) Lymphocytes # (Auto) 0.6x10^3/uL (1.0-4.8) Monocytes # (Auto) 1.7x10^3/uL (0.0-1.1) Eosinophils # (Auto) 0.0x10^3/uL (0.0-0.7) Basophils # (Auto) 0.1x10^3/uL (0.0-0.2) Segmented Neutrophils % 71% (35-66) Band Neutrophils % 20% (0-9) Lymphocytes % 6% (24-48) Monocytes % 3% (0-10) Toxic Granulation Present Toxic Vacuolation Present Dohle Bodies Present Platelet Estimate Adequate (ADEQUATE) Sodium Level 124mmol/L (136-145) Potassium Level 5.0mmol/L (3.5-5.1) Chloride Level 83mmol/L (98-107) Carbon Dioxide Level 20mmol/L (21-32) Anion Gap 21 (6-14) Blood Urea Nitrogen 73mg/dL (8-26) Creatinine 6.1mg/dL (0.7-1.3) Estimated GFR (Cockcroft-Gault) 11.9 Glucose Level 138mg/dL (70-99) Lactic Acid Level 4.2mmol/L (0.4-2.0) 2.9mmol/L (0.4-2.0) Calcium Level 7.9mg/dL (8.5-10.1) Influenza Type A Antigen Negative (NEGATIVE) Influenza Type B Antigen Negative (NEGATIVE) Urine Collection Type Unknown Urine Color Yellow Urine Clarity Turbid Urine pH 5.0 Urine Specific Melbeta 1.020 Urine Protein 100mg/dL (NEG-TRACE) Urine Glucose (UA) Negativemg/dL (NEG) Urine Ketones (Stick) Negativemg/dL (NEG) Urine Blood Moderate (NEG) Urine Nitrite Negative (NEG) Urine Bilirubin Small (NEG) Urine Urobilinogen Dipstick 0.2mg/dL (0.2 mg/dL) Urine Leukocyte Esterase Negative (NEG) Urine RBC 0/HPF (0-2) Urine WBC 1-4/HPF (0-4) Urine Amorphous Sediment Present/HPF Urine Bacteria 0/HPF (0-FEW) Urine Hyaline Casts Many/HPF Urine Granular Casts Few/HPF Test 12/08/16 04:55 White Blood Count 16.8x10^3/uL (4.0-11.0) Red Blood Count 4.96x10^6/uL (4.30-5.70) Hemoglobin 15.1g/dL (13.0-17.5) Hematocrit 45.6% (39.0-53.0) Mean Corpuscular Volume 92fL (79-100) Mean Corpuscular Hemoglobin 30pg (25-35) Mean Corpuscular Hemoglobin Concent 33g/dL (31-37) Red Cell Distribution Width 14.3% (11.5-14.5) Platelet Count 266x10^3/uL (140-400) Neutrophils (%) (Auto) 87% (31-73) Lymphocytes (%) (Auto) 4% (24-48) Monocytes (%) (Auto) 9% (0-9) Eosinophils (%) (Auto) 0% (0-3) Basophils (%) (Auto) 0% (0-3) Neutrophils # (Auto) 14.6x10^3uL (1.8-7.7) Lymphocytes # (Auto) 0.6x10^3/uL (1.0-4.8) Monocytes # (Auto) 1.5x10^3/uL (0.0-1.1) Eosinophils # (Auto) 0.0x10^3/uL (0.0-0.7) Basophils # (Auto) 0.1x10^3/uL (0.0-0.2) Sodium Level 130mmol/L (136-145) Potassium Level 4.7mmol/L (3.5-5.1) Chloride Level 95mmol/L (98-107) Carbon Dioxide Level 16mmol/L (21-32) Anion Gap 19 (6-14) Blood Urea Nitrogen 64mg/dL (8-26) Creatinine 3.8mg/dL (0.7-1.3) Estimated GFR (Cockcroft-Gault) 20.6 Glucose Level 98mg/dL (70-99) Calcium Level 6.9mg/dL (8.5-10.1) Laboratory Tests Test 12/07/16 14:25 12/07/16 14:30 12/07/16 16:55 12/07/16 18:40 White Blood Count 19.4x10^3/uL (4.0-11.0) Red Blood Count 6.06x10^6/uL (4.30-5.70) Hemoglobin 18.2g/dL (13.0-17.5) Hematocrit 54.2% (39.0-53.0) Mean Corpuscular Volume 89fL (79-100) Mean Corpuscular Hemoglobin 30pg (25-35) Mean Corpuscular Hemoglobin Concent 34g/dL (31-37) Red Cell Distribution Width 13.9% (11.5-14.5) Platelet Count 288x10^3/uL (140-400) Neutrophils (%) (Auto) 88% (31-73) Lymphocytes (%) (Auto) 3% (24-48) Monocytes (%) (Auto) 9% (0-9) Eosinophils (%) (Auto) 0% (0-3) Basophils (%) (Auto) 1% (0-3) Neutrophils # (Auto) 17.0x10^3uL (1.8-7.7) Lymphocytes # (Auto) 0.6x10^3/uL (1.0-4.8) Monocytes # (Auto) 1.7x10^3/uL (0.0-1.1) Eosinophils # (Auto) 0.0x10^3/uL (0.0-0.7) Basophils # (Auto) 0.1x10^3/uL (0.0-0.2) Segmented Neutrophils % 71% (35-66) Band Neutrophils % 20% (0-9) Lymphocytes % 6% (24-48) Monocytes % 3% (0-10) Toxic Granulation Present Toxic Vacuolation Present Dohle Bodies Present Platelet Estimate Adequate (ADEQUATE) Sodium Level 124mmol/L (136-145) Potassium Level 5.0mmol/L (3.5-5.1) Chloride Level 83mmol/L (98-107) Carbon Dioxide Level 20mmol/L (21-32) Anion Gap 21 (6-14) Blood Urea Nitrogen 73mg/dL (8-26) Creatinine 6.1mg/dL (0.7-1.3) Estimated GFR (Cockcroft-Gault) 11.9 Glucose Level 138mg/dL (70-99) Lactic Acid Level 4.2mmol/L (0.4-2.0) 2.9mmol/L (0.4-2.0) Calcium Level 7.9mg/dL (8.5-10.1) Influenza Type A Antigen Negative (NEGATIVE) Influenza Type B Antigen Negative (NEGATIVE) Urine Collection Type Unknown Urine Color Yellow Urine Clarity Turbid Urine pH 5.0 Urine Specific Melbeta 1.020 Urine Protein 100mg/dL (NEG-TRACE) Urine Glucose (UA) Negativemg/dL (NEG) Urine Ketones (Stick) Negativemg/dL (NEG) Urine Blood Moderate (NEG) Urine Nitrite Negative (NEG) Urine Bilirubin Small (NEG) Urine Urobilinogen Dipstick 0.2mg/dL (0.2 mg/dL) Urine Leukocyte Esterase Negative (NEG) Urine RBC 0/HPF (0-2) Urine WBC 1-4/HPF (0-4) Urine Amorphous Sediment Present/HPF Urine Bacteria 0/HPF (0-FEW) Urine Hyaline Casts Many/HPF Urine Granular Casts Few/HPF Test 12/08/16 04:55 White Blood Count 16.8x10^3/uL (4.0-11.0) Red Blood Count 4.96x10^6/uL (4.30-5.70) Hemoglobin 15.1g/dL (13.0-17.5) Hematocrit 45.6% (39.0-53.0) Mean Corpuscular Volume 92fL (79-100) Mean Corpuscular Hemoglobin 30pg (25-35) Mean Corpuscular Hemoglobin Concent 33g/dL (31-37) Red Cell Distribution Width 14.3% (11.5-14.5) Platelet Count 266x10^3/uL (140-400) Neutrophils (%) (Auto) 87% (31-73) Lymphocytes (%) (Auto) 4% (24-48) Monocytes (%) (Auto) 9% (0-9) Eosinophils (%) (Auto) 0% (0-3) Basophils (%) (Auto) 0% (0-3) Neutrophils # (Auto) 14.6x10^3uL (1.8-7.7) Lymphocytes # (Auto) 0.6x10^3/uL (1.0-4.8) Monocytes # (Auto) 1.5x10^3/uL (0.0-1.1) Eosinophils # (Auto) 0.0x10^3/uL (0.0-0.7) Basophils # (Auto) 0.1x10^3/uL (0.0-0.2) Sodium Level 130mmol/L (136-145) Potassium Level 4.7mmol/L (3.5-5.1) Chloride Level 95mmol/L (98-107) Carbon Dioxide Level 16mmol/L (21-32) Anion Gap 19 (6-14) Blood Urea Nitrogen 64mg/dL (8-26) Creatinine 3.8mg/dL (0.7-1.3) Estimated GFR (Cockcroft-Gault) 20.6 Glucose Level 98mg/dL (70-99) Calcium Level 6.9mg/dL (8.5-10.1) Medications Current Medications Ketorolac Tromethamine 30 mg 30 mg 1X ONCE IV Last administered on 12/07/16 14:34; Start 12/07/16 at 14:30; Stop 12/07/16 at 14:31; Status DC Sodium Chloride 1,000 ml @ 1,000 mls/hr 1X ONCE IV Last administered on 14:34; Start 12/07/16 at 14:30; Stop 12/07/16 at 15:29; Status DC Ceftriaxone Sodium 1 gm/ Sodium Chloride 50 ml @ 100 mls/hr Q24H IV ; Start at 15:30 Azithromycin 250 ml @ 250 mls/hr 1X ONCE IV Last administered on 12/07/16 15 :48; Start 12/07/16 at 15:15; Stop 12/07/16 at 16:14; Status DC Sodium Chloride 1,000 ml @ 1,000 mls/hr 1X ONCE IV Last administered on 16:09; Start 12/07/16 at 15:15; Stop 12/07/16 at 16:14; Status DC Ceftriaxone Sodium 50 ml @ 100 mls/hr 1X ONCE IV Last administered on 15:29; Start 12/07/16 at 15:15; Stop 12/07/16 at 15:44; Status DC Sodium Chloride (Iv Sodium Chloride 0.9% 1000ml Bag) 1,000 ml @ 150 mls/hr 1X ONCE IV Last administered on 12/07/16 18:10; Start 12/07/16 at 15:15; Stop 11/11 at 21:54; Status DC Famotidine (Pepcid) 20 mg 1X ONCE IVP Last administered on 12/07/16 15:48; Start 12/07/16 at 15:45; Stop 12/07/16 at 15:46; Status DC Ondansetron HCl 4 mg 4 mg 1X ONCE IV Last administered on 12/07/16 16:09; Start 12/07/16 at 16:15; Stop 12/07/16 at 16:16; Status DC Sodium Chloride (Iv Sodium Chloride 0.9% 1000ml Bag) 1,000 ml @ 150 mls/hr Q6H40M IV Last administered on 12/08/16 06:38; Start 12/07/16 at 16:30 Ondansetron HCl (Zofran) 4 mg PRN Q6HRS PRN IV NAUSEA/VOMITING; Start 12/07/16 at 16:30 Acetaminophen (Tylenol) 500 mg PRN Q6HRS PRN PO MILD PAIN / TEMP; Start at 16:30 Morphine Sulfate 2 mg PRN Q2HR PRN IV PAIN Last administered on 12/08/16 05:28 ; Start 12/07/16 at 16:30 Zolpidem Tartrate (Ambien) 5 mg PRN QHS PRN PO INSOMNIA Last administered on 01:06; Start 12/07/16 at 16:30 Methocarbamol (Robaxin) 500 mg QID PO Last administered on 12/07/16 21:19; Start 12/07/16 at 17:00 Oxycodone/ Acetaminophen (Percocet 5/325) 1 tab PRN Q4HRS PRN PO SEVERE PAIN; Start 12/07/16 at 16:30 Tramadol HCl (Ultram) 50 mg PRN Q6HRS PRN PO MODERATE PAIN Last administered on 12/07/16 17:11; Start 12/07/16 at 16:30 Nicotine (Nicoderm Cq 21mg) 1 patch PRN DAILY PRN TD SMOKING CESSATION; Start 12/07/16 at 16:30 Info (Do NOT chart on this placeholder) 1 each 1X ONCE MC ; Start 12/07/16 at 22:45; Stop 12/07/16 at 22:46; Status UNV Pneumococcal Polyvalent Vaccine (Do NOT chart on this placeholder) 1 each 1X ONCE MC ; Start 12/07/16 at 22:45; Stop 12/07/16 at 22:46; Status UNV Influenza Virus Vaccine Quadrival (Fluarix Quad [id number] Syringe) 0.5 ml ONCE ONCE VAX IM ; Start 12/08/16 at 09:00; Stop 12/08/16 at 09:01; Status DC Pneumococcal Polyvalent Vaccine (Pneumovax 23) 0.5 ml ONCE ONCE VAX IM ; Start 12/08/16 at 09:00; Stop 12/08/16 at 09:01; Status DC Labetalol HCl (Normodyne) 10 mg 1X ONCE IVP Last administered on 12/08/16t 08: 56; Start 12/08/16 at 08:30; Stop 12/08/16 at 08:35; Status DC Alprazolam (Xanax) 0.5 mg 1X ONCE PO Last administered on 12/08/16t 08:40; Start 12/08/16 at 08:45; Stop 12/08/16 at 08:46; Status DC Aspirin (Children'S Aspirin) 324 mg 1X ONCE PO ; Start 12/08/16 at 09:30; Stop 12/08/16 at 09:31; Status DC Aspirin (Jada Aspirin) 325 mg DAILYWBKFT PO ; Start 12/09/16 at 08:00 Heparin Sodium (Porcine) 4000 unit 4,000 unit 1X ONCE IV ; Start 12/08/16 at 09 :30; Stop 12/08/16 at 09:31; Status DC Midazolam HCl (Versed 100mg/ 100ml Premix) 100 ml @ As Directed STK-MED ONCE IV ; Start 12/08/16 at 09:52; Stop 12/08/16 at 09:53; Status DC Active Scripts Active Ultram (Tramadol Hcl) 50 Mg Tablet 50 Mg PO Q6H PRN Robaxin (Methocarbamol) 500 Mg Tablet 500 Mg PO QID Reported Percocet 5-325 Mg Tablet (Oxycodone/Acetaminophen) 1 Each Tablet 1-2 Tab PO Q4HRS Vitals/I & O Vital Sign - Last 24 Hours 12/07/16 12/07/16 12/07/16 12/07/16 14:02 14:27 14:57 15:27 Temp 97.6 97.6 Pulse 116 114 108 98 Resp 27 31 18 23 B/P 152/88 137/85 130/77 134/58 Pulse Ox 85 91 95 O2 Delivery Room Air Room Air Room Air Room Air 12/07/16 12/07/16 12/07/16 12/07/16 16:45 17:11 17:21 18:11 Temp 96.4 96.4 Pulse 97 Resp 20 20 B/P 132/55 Pulse Ox 95 95 89 O2 Delivery Room Air Room Air Room Air 12/07/16 12/07/16 12/07/16 12/08/16 19:08 20:00 22:53 03:32 Temp 97.8 97.4 98.5 97.8 97.4 98.5 Pulse 86 88 103 Resp B/P 112/72 114/71 143/79 Pulse Ox 95 89 91 O2 Delivery Room Air 12/08/16 12/08/16 12/08/16 12/08/16 05:28 05:58 07:25 08:18 Temp 96.5 96.5 Pulse 118 Resp 20 B/P 137/77 Pulse Ox 91 91 100 95 O2 Delivery Room Air Room Air Room Air Nasal Cannula O2 Flow Rate 4.0 12/08/16 12/08/16 08:30 08:56 Pulse 129 128 Resp 24 B/P 171/122 186/127 Pulse Ox 91 O2 Delivery Nasal Cannula O2 Flow Rate 4.0 Intake and Output 12/07/16 12/07/16 12/08/16 15:00 23:00 07:00 Intake Total 180 ml Balance 180 ml DEMETRIUS MALDONADO MD Dec 08, 2016 10:09
[2016-12-08 10:14] LABS: MAGNESIUM 2.3 mg/dL (1.8-2.4)
[2016-12-08] MEDS ORDERED: NOREPINEPHRINE 8 MG in IV NORMAL SALINE 250 ML IV PRN (10:15)
[2016-12-08] MEDS ORDERED: DOPAMINE 400MG/250ML PREMIX 250 ML IV PRN (10:15)
[2016-12-08] MEDS ORDERED: PHENYLEPHRINE in 0.9% NACL PF 1 MG/10 ML DISP.SYRIN. IV ONE (10:25)
[2016-12-08] MEDS: MIDAZOLAM PREMIX 100 ML IV PRN ×2 (10:30→18:21)
[2016-12-08] MEDS ORDERED: EPINEPHRINE 1 MG/10 ML DISP.SYRIN. ONE (10:30)
[2016-12-08] MEDS: SODIUM BICARBONATE VIAL 50 MEQ in IV 1/2 NORMAL SALINE 1,000 ML IV SCH ×4 (10:30→23:47)
[2016-12-08] MEDS ORDERED: ATROPINE 0.5 MG/5 ML DISP.SYRIN. ONE (10:30)
--- NOTE | 2016-12-08 10:31 | RAD ---
Exam: AP portable chest. History: Endotracheal tube placement. Comparison: Earlier 12/08/2016. Findings: Endotracheal tube has been placed with tip projecting 5 cm by the corey. No pneumothorax or pleural effusion is seen. Cardiac silhouette appears unchanged and within normal limits. Emphysematous changes of the lungs are again seen. The bilateral lower lung field infiltrates are without change. Impression: 1. Interval intubation. 2. No other significant change.
[2016-12-08] MEDS ORDERED: ASPIRIN 300 MG SUPP.RECT PR ONE (10:45)
--- NOTE | 2016-12-08 10:48 | PDOC2 ---
CONSULT Date of Consult Date of Consult DATE: 12/08/16 TIME: 10:42 Reason for Consult Reason for Consult: ASHLEY Referring Physician Referring Physician: ERICA Identification/Chief Complaint Chief Complaint WEAKNESS, SOB, DIARRHEA Source Source: Chart review History of Present Illness Reason for Visit: THIS IS A 51 YR OLD ADMITTED WITH WEAKNESS, SOB AND A 5 DAY HX OF DIARRHEA. HIS WBC COUNT IS UP TO 19.4 AND HIS IS NOTED TO HAVE A CR OF 6.1 ON ADMIT WITH A K OF 5.0 AND LACTIC ACIDOSIS. THIS AM HE HAD A RESP ARREST AND THEN PEA AND HAS BEEN TRANSFERRED TO THE ICU. HE IS HYPOTENSIVE AT THIS TIME AND UNRESPONSIVE. NO CKD HX NOTED Past Medical History Cardiovascular: No pertinent hx Pulmonary: No pertinent hx CENTRAL NERVOUS SYSTEM: Other (no pertinent hx) GI: No pertinent hx Heme/Onc: No pertinent hx Hepatobiliary: No pertinent hx Psych: No pertinent hx Musculoskeletal: low back pain Rheumatologic: No pertinent hx Infectious disease: No pertinent hx ENT: No pertinent hx Renal/: No pertinent hx Endocrine: No pertinent hx Dermatology: No pertinent hx Past Surgical History Past Surgical History: Hernia Repair Family History Family History: No Significant Social History <1 pack per day ALCOHOL: other (daily) Drugs: Marijuana Current Problem List Problem List Problems Medical Problems: (1) ARF (acute renal failure) Status: Acute (2) CAP (community acquired pneumonia) Status: Acute Current Medications Current Medications Current Medications Ketorolac Tromethamine 30 mg 30 mg 1X ONCE IV Last administered on 12/07/16 14:34; Start 12/07/16 at 14:30; Stop 12/07/16 at 14:31; Status DC Sodium Chloride 1,000 ml @ 1,000 mls/hr 1X ONCE IV Last administered on 14:34; Start 12/07/16 at 14:30; Stop 12/07/16 at 15:29; Status DC Ceftriaxone Sodium 1 gm/ Sodium Chloride 50 ml @ 100 mls/hr Q24H IV ; Start at 15:30 Azithromycin 250 ml @ 250 mls/hr 1X ONCE IV Last administered on 12/07/16 15 :48; Start 12/07/16 at 15:15; Stop 12/07/16 at 16:14; Status DC Sodium Chloride 1,000 ml @ 1,000 mls/hr 1X ONCE IV Last administered on 16:09; Start 12/07/16 at 15:15; Stop 12/07/16 at 16:14; Status DC Ceftriaxone Sodium 50 ml @ 100 mls/hr 1X ONCE IV Last administered on 15:29; Start 12/07/16 at 15:15; Stop 12/07/16 at 15:44; Status DC Sodium Chloride (Iv Sodium Chloride 0.9% 1000ml Bag) 1,000 ml @ 150 mls/hr 1X ONCE IV Last administered on 12/07/16 18:10; Start 12/07/16 at 15:15; Stop 11/11 at 21:54; Status DC Famotidine (Pepcid) 20 mg 1X ONCE IVP Last administered on 12/07/16 15:48; Start 12/07/16 at 15:45; Stop 12/07/16 at 15:46; Status DC Ondansetron HCl 4 mg 4 mg 1X ONCE IV Last administered on 12/07/16 16:09; Start 12/07/16 at 16:15; Stop 12/07/16 at 16:16; Status DC Sodium Chloride (Iv Sodium Chloride 0.9% 1000ml Bag) 1,000 ml @ 150 mls/hr Q6H40M IV Last administered on 12/08/16 06:38; Start 12/07/16 at 16:30 Ondansetron HCl (Zofran) 4 mg PRN Q6HRS PRN IV NAUSEA/VOMITING; Start 12/07/16 at 16:30 Acetaminophen (Tylenol) 500 mg PRN Q6HRS PRN PO MILD PAIN / TEMP; Start at 16:30 Morphine Sulfate 2 mg PRN Q2HR PRN IV PAIN Last administered on 12/08/16 05:28 ; Start 12/07/16 at 16:30 Zolpidem Tartrate (Ambien) 5 mg PRN QHS PRN PO INSOMNIA Last administered on 01:06; Start 12/07/16 at 16:30; Stop 12/08/16 at 10:03; Status DC Methocarbamol (Robaxin) 500 mg QID PO Last administered on 12/07/16 21:19; Start 12/07/16 at 17:00; Stop 12/08/16 at 10:03; Status DC Oxycodone/ Acetaminophen (Percocet 5/325) 1 tab PRN Q4HRS PRN PO SEVERE PAIN; Start 12/07/16 at 16:30 Tramadol HCl (Ultram) 50 mg PRN Q6HRS PRN PO MODERATE PAIN Last administered on 12/07/16 17:11; Start 12/07/16 at 16:30 Nicotine (Nicoderm Cq 21mg) 1 patch PRN DAILY PRN TD SMOKING CESSATION; Start 12/07/16 at 16:30 Info (Do NOT chart on this placeholder) 1 each 1X ONCE MC ; Start 12/07/16 at 22:45; Stop 12/07/16 at 22:46; Status UNV Pneumococcal Polyvalent Vaccine (Do NOT chart on this placeholder) 1 each 1X ONCE MC ; Start 12/07/16 at 22:45; Stop 12/07/16 at 22:46; Status UNV Influenza Virus Vaccine Quadrival (Fluarix Quad [id number] Syringe) 0.5 ml ONCE ONCE VAX IM ; Start 12/08/16 at 09:00; Stop 12/08/16 at 09:01; Status DC Pneumococcal Polyvalent Vaccine (Pneumovax 23) 0.5 ml ONCE ONCE VAX IM ; Start 12/08/16 at 09:00; Stop 12/08/16 at 09:01; Status DC Labetalol HCl (Normodyne) 10 mg 1X ONCE IVP Last administered on 12/08/16 08: 56; Start 12/08/16 at 08:30; Stop 12/08/16 at 08:35; Status DC Alprazolam (Xanax) 0.5 mg 1X ONCE PO Last administered on 12/08/16 08:40; Start 12/08/16 at 08:45; Stop 12/08/16 at 08:46; Status DC Aspirin (Children'S Aspirin) 324 mg 1X ONCE PO ; Start 12/08/16 at 09:30; Stop 12/08/16 at 09:31; Status DC Aspirin (Jada Aspirin) 325 mg DAILYWBKFT PO ; Start 12/09/16 at 08:00 Heparin Sodium (Porcine) 4000 unit 4,000 unit 1X ONCE IV ; Start 12/08/16 at 09 :30; Stop 12/08/16 at 09:31; Status DC Midazolam HCl 100 ml @ As Directed STK-MED ONCE IV ; Start 12/08/16 at 09:52; Stop 12/08/16 at 09:53; Status DC Propofol (Diprivan) 100 ml @ 0 mls/hr CONT PRN IV SEE I/O RECORD; Start at 10:00 Famotidine (Pepcid) 20 mg QHS IVP ; Start 12/08/16 at 21:00 Heparin Sodium (Porcine) 5000 unit 5,000 unit Q8HRS SQ ; Start 12/08/16 at 14:00 Norepinephrine Bitartrate 8 mg/ Sodium Chloride 258 ml @ 1.93 mls/hr CONT PRN IV SEE I/O RECORD; Start 12/08/16 at 10:15; Status Cancel Dopamine HCl/ Dextrose 250 ml @ As Directed STK-MED ONCE IV ; Start 12/08/16 at 10:07; Stop 12/08/16 at 10:08; Status DC Norepinephrine Bitartrate 8 mg/ Sodium Chloride 258 ml @ 0 mls/hr CONT PRN IV SEE I/O RECORD; Start 12/08/16 at 10:15 Dopamine HCl/ Dextrose 250 ml @ 10.084 mls/ hr CONT PRN IV SEE I/O RECORD; Start 12/08/16 at 10:15 Sodium Bicarbonate/ Sodium Chloride (Iv Sodium Chloride 0.45%) 1,050 ml @ 200 mls/hr Q5H15M IV ; Start 12/08/16 at 10:30 Phenylephrine HCl 1 mg STK-MED ONCE IV ; Start 12/08/16 at 10:25; Stop 12/08/16 at 10:26; Status DC Aspirin (Aspirin) 300 mg 1X ONCE MN ; Start 12/08/16 at 10:45; Stop 12/08/16 at 10:46 Active Scripts Active Ultram (Tramadol Hcl) 50 Mg Tablet 50 Mg PO Q6H PRN Robaxin (Methocarbamol) 500 Mg Tablet 500 Mg PO QID Reported Percocet 5-325 Mg Tablet (Oxycodone/Acetaminophen) 1 Each Tablet 1-2 Tab PO Q4HRS Allergies Allergies: Coded Allergies: metoclopramide (Unverified Adverse Reaction, Intermediate, hyperactivity, 12/28/15) ROS Review of System UNABLE TO OBTAIN Physical Exam General: No acute distress HEENT: Atraumatic, Other (ET TUBE IN PLACE) Lungs: Clear to auscultation Heart: Regular rate, Normal S1, Normal S2 Abdomen: Normal bowel sounds, Soft, No tenderness Extremities: No clubbing Neuro: Other (INTUBATED) MUSCULOSKELETAL: No deformity, Other (DIFFUSE ATROPHY) Vitals VITALS Vital Signs Date Time Temp Pulse Resp B/P Pulse Ox O2 Delivery O2 Flow Rate FiO2 12/08/16 09:55 Ventilator 12/08/16 08:56 128 186/127 12/08/16 08:30 24 91 4.0 12/08/16 07:25 96.5 96.5 Labs Labs Laboratory Tests Test 12/07/16 14:25 12/07/16 14:30 12/07/16 16:55 12/07/16 18:40 White Blood Count 19.4x10^3/uL (4.0-11.0) Red Blood Count 6.06x10^6/uL (4.30-5.70) Hemoglobin 18.2g/dL (13.0-17.5) Hematocrit 54.2% (39.0-53.0) Mean Corpuscular Volume 89fL (79-100) Mean Corpuscular Hemoglobin 30pg (25-35) Mean Corpuscular Hemoglobin Concent 34g/dL (31-37) Red Cell Distribution Width 13.9% (11.5-14.5) Platelet Count 288x10^3/uL (140-400) Neutrophils (%) (Auto) 88% (31-73) Lymphocytes (%) (Auto) 3% (24-48) Monocytes (%) (Auto) 9% (0-9) Eosinophils (%) (Auto) 0% (0-3) Basophils (%) (Auto) 1% (0-3) Neutrophils # (Auto) 17.0x10^3uL (1.8-7.7) Lymphocytes # (Auto) 0.6x10^3/uL (1.0-4.8) Monocytes # (Auto) 1.7x10^3/uL (0.0-1.1) Eosinophils # (Auto) 0.0x10^3/uL (0.0-0.7) Basophils # (Auto) 0.1x10^3/uL (0.0-0.2) Segmented Neutrophils % 71% (35-66) Band Neutrophils % 20% (0-9) Lymphocytes % 6% (24-48) Monocytes % 3% (0-10) Toxic Granulation Present Toxic Vacuolation Present Dohle Bodies Present Platelet Estimate Adequate (ADEQUATE) Sodium Level 124mmol/L (136-145) Potassium Level 5.0mmol/L (3.5-5.1) Chloride Level 83mmol/L (98-107) Carbon Dioxide Level 20mmol/L (21-32) Anion Gap 21 (6-14) Blood Urea Nitrogen 73mg/dL (8-26) Creatinine 6.1mg/dL (0.7-1.3) Estimated GFR (Cockcroft-Gault) 11.9 Glucose Level 138mg/dL (70-99) Lactic Acid Level 4.2mmol/L (0.4-2.0) 2.9mmol/L (0.4-2.0) Calcium Level 7.9mg/dL (8.5-10.1) Influenza Type A Antigen Negative (NEGATIVE) Influenza Type B Antigen Negative (NEGATIVE) Urine Collection Type Unknown Urine Color Yellow Urine Clarity Turbid Urine pH 5.0 Urine Specific [place] 1.020 Urine Protein 100mg/dL (NEG-TRACE) Urine Glucose (UA) Negativemg/dL (NEG) Urine Ketones (Stick) Negativemg/dL (NEG) Urine Blood Moderate (NEG) Urine Nitrite Negative (NEG) Urine Bilirubin Small (NEG) Urine Urobilinogen Dipstick 0.2mg/dL (0.2 mg/dL) Urine Leukocyte Esterase Negative (NEG) Urine RBC 0/HPF (0-2) Urine WBC 1-4/HPF (0-4) Urine Amorphous Sediment Present/HPF Urine Bacteria 0/HPF (0-FEW) Urine Hyaline Casts Many/HPF Urine Granular Casts Few/HPF Test 12/08/16 04:55 12/08/16 09:30 White Blood Count 16.8x10^3/uL (4.0-11.0) Red Blood Count 4.96x10^6/uL (4.30-5.70) Hemoglobin 15.1g/dL (13.0-17.5) Hematocrit 45.6% (39.0-53.0) Mean Corpuscular Volume 92fL (79-100) Mean Corpuscular Hemoglobin 30pg (25-35) Mean Corpuscular Hemoglobin Concent 33g/dL (31-37) Red Cell Distribution Width 14.3% (11.5-14.5) Platelet Count 266x10^3/uL (140-400) Neutrophils (%) (Auto) 87% (31-73) Lymphocytes (%) (Auto) 4% (24-48) Monocytes (%) (Auto) 9% (0-9) Eosinophils (%) (Auto) 0% (0-3) Basophils (%) (Auto) 0% (0-3) Neutrophils # (Auto) 14.6x10^3uL (1.8-7.7) Lymphocytes # (Auto) 0.6x10^3/uL (1.0-4.8) Monocytes # (Auto) 1.5x10^3/uL (0.0-1.1) Eosinophils # (Auto) 0.0x10^3/uL (0.0-0.7) Basophils # (Auto) 0.1x10^3/uL (0.0-0.2) Sodium Level 130mmol/L (136-145) Potassium Level 4.7mmol/L (3.5-5.1) Chloride Level 95mmol/L (98-107) Carbon Dioxide Level 16mmol/L (21-32) Anion Gap 19 (6-14) Blood Urea Nitrogen 64mg/dL (8-26) Creatinine 3.8mg/dL (0.7-1.3) Estimated GFR (Cockcroft-Gault) 20.6 Glucose Level 98mg/dL (70-99) Calcium Level 6.9mg/dL (8.5-10.1) 7.0mg/dL (8.5-10.1) Magnesium Level 2.3mg/dL (1.8-2.4) Laboratory Tests Test 12/07/16 14:25 12/07/16 14:30 12/07/16 16:55 12/07/16 18:40 White Blood Count 19.4x10^3/uL (4.0-11.0) Red Blood Count 6.06x10^6/uL (4.30-5.70) Hemoglobin 18.2g/dL (13.0-17.5) Hematocrit 54.2% (39.0-53.0) Mean Corpuscular Volume 89fL (79-100) Mean Corpuscular Hemoglobin 30pg (25-35) Mean Corpuscular Hemoglobin Concent 34g/dL (31-37) Red Cell Distribution Width 13.9% (11.5-14.5) Platelet Count 288x10^3/uL (140-400) Neutrophils (%) (Auto) 88% (31-73) Lymphocytes (%) (Auto) 3% (24-48) Monocytes (%) (Auto) 9% (0-9) Eosinophils (%) (Auto) 0% (0-3) Basophils (%) (Auto) 1% (0-3) Neutrophils # (Auto) 17.0x10^3uL (1.8-7.7) Lymphocytes # (Auto) 0.6x10^3/uL (1.0-4.8) Monocytes # (Auto) 1.7x10^3/uL (0.0-1.1) Eosinophils # (Auto) 0.0x10^3/uL (0.0-0.7) Basophils # (Auto) 0.1x10^3/uL (0.0-0.2) Segmented Neutrophils % 71% (35-66) Band Neutrophils % 20% (0-9) Lymphocytes % 6% (24-48) Monocytes % 3% (0-10) Toxic Granulation Present Toxic Vacuolation Present Dohle Bodies Present Platelet Estimate Adequate (ADEQUATE) Sodium Level 124mmol/L (136-145) Potassium Level 5.0mmol/L (3.5-5.1) Chloride Level 83mmol/L (98-107) Carbon Dioxide Level 20mmol/L (21-32) Anion Gap 21 (6-14) Blood Urea Nitrogen 73mg/dL (8-26) Creatinine 6.1mg/dL (0.7-1.3) Estimated GFR (Cockcroft-Gault) 11.9 Glucose Level 138mg/dL (70-99) Lactic Acid Level 4.2mmol/L (0.4-2.0) 2.9mmol/L (0.4-2.0) Calcium Level 7.9mg/dL (8.5-10.1) Influenza Type A Antigen Negative (NEGATIVE) Influenza Type B Antigen Negative (NEGATIVE) Urine Collection Type Unknown Urine Color Yellow Urine Clarity Turbid Urine pH 5.0 Urine Specific [place] 1.020 Urine Protein 100mg/dL (NEG-TRACE) Urine Glucose (UA) Negativemg/dL (NEG) Urine Ketones (Stick) Negativemg/dL (NEG) Urine Blood Moderate (NEG) Urine Nitrite Negative (NEG) Urine Bilirubin Small (NEG) Urine Urobilinogen Dipstick 0.2mg/dL (0.2 mg/dL) Urine Leukocyte Esterase Negative (NEG) Urine RBC 0/HPF (0-2) Urine WBC 1-4/HPF (0-4) Urine Amorphous Sediment Present/HPF Urine Bacteria 0/HPF (0-FEW) Urine Hyaline Casts Many/HPF Urine Granular Casts Few/HPF Test 12/08/16 04:55 12/08/16 09:30 White Blood Count 16.8x10^3/uL (4.0-11.0) Red Blood Count 4.96x10^6/uL (4.30-5.70) Hemoglobin 15.1g/dL (13.0-17.5) Hematocrit 45.6% (39.0-53.0) Mean Corpuscular Volume 92fL (79-100) Mean Corpuscular Hemoglobin 30pg (25-35) Mean Corpuscular Hemoglobin Concent 33g/dL (31-37) Red Cell Distribution Width 14.3% (11.5-14.5) Platelet Count 266x10^3/uL (140-400) Neutrophils (%) (Auto) 87% (31-73) Lymphocytes (%) (Auto) 4% (24-48) Monocytes (%) (Auto) 9% (0-9) Eosinophils (%) (Auto) 0% (0-3) Basophils (%) (Auto) 0% (0-3) Neutrophils # (Auto) 14.6x10^3uL (1.8-7.7) Lymphocytes # (Auto) 0.6x10^3/uL (1.0-4.8) Monocytes # (Auto) 1.5x10^3/uL (0.0-1.1) Eosinophils # (Auto) 0.0x10^3/uL (0.0-0.7) Basophils # (Auto) 0.1x10^3/uL (0.0-0.2) Sodium Level 130mmol/L (136-145) Potassium Level 4.7mmol/L (3.5-5.1) Chloride Level 95mmol/L (98-107) Carbon Dioxide Level 16mmol/L (21-32) Anion Gap 19 (6-14) Blood Urea Nitrogen 64mg/dL (8-26) Creatinine 3.8mg/dL (0.7-1.3) Estimated GFR (Cockcroft-Gault) 20.6 Glucose Level 98mg/dL (70-99) Calcium Level 6.9mg/dL (8.5-10.1) 7.0mg/dL (8.5-10.1) Magnesium Level 2.3mg/dL (1.8-2.4) Assessment/Plan Assessment/Plan IMP SEPSIS HYPOTENSION ASHLEY-IMPROVED FROM YESTERDAY HYPERKALEMIA HYPONATREMIA MET ACIDOSIS RESP FAILURE DEHYDRATION PLAN FLUID BOLUS HCO3 GTT PRESSORS ANTIBIOTICS WILL HAVE ART LINE PLACED CRITICALLY ILL WILL FOLLOW BLUE RICHARDSON MD Dec 08, 2016 10:48
--- NOTE | 2016-12-08 10:57 | EKG ---
[facility] [address] [place] [address] Test Date: 2016-12-08 Test Time: 10:56:52 Pat Name: MARLEN CRUZ Department: Room: 111 1 Gender: M [employer]: AIRAM : 1965 Requested By: AYAKA BUTLER Order Number: [id number] Reading MD: Tariq Sheriff Measurements Intervals [place] Rate: 93 P: 90 [place]: 146 QRS: 75 QRSD: 88 T: 14 QT: 364 QTc: 455 Interpretive Statements SINUS RHYTHM SEPTAL INFARCT Electronically Signed On 12-12-2016 10:31:47 MOLD TECHNICIAN by Tariq Sheriff
[2016-12-08 11:14] LABS: HCO3 ABG 11 mmol/L (21-28); PCO2 ABG 43 mmHg (35-46); PO2 ABG 109 mmHg (75-108); SAT O2 ABG 95 % (92-99)
[2016-12-08 11:17] LABS: FIO2 ABG 100; PH ABG 7.02 (7.35-7.45)
[2016-12-08] MEDS ORDERED: IV NORMAL SALINE 1000ML BAG 1,000 ML IV ONE ×4 (11:45→12:15)
[2016-12-08] MEDS: NOREPINEPHRINE VIAL 8 MG in IV NORMAL SALINE 250ML 250 ML IV PRN ×3 (11:57→21:04)
[2016-12-08 12:04] LABS: CKMB MASS 19.2 ng/mL (0.0-3.6)
--- NOTE | 2016-12-08 12:05 | RAD ---
EXAM: Abdomen, single view. HISTORY: Orogastric tube placement. COMPARISON: None. FINDINGS: A frontal view of the abdomen is obtained. There is a an enteric catheter within the stomach. The stomach is mildly distended with air. There are also prominent air-filled loops of small and large bowel throughout the abdomen. There is no evidence of obstruction. IMPRESSION: 1. Enteric catheter within the stomach. 2. Prominent air-filled bowel throughout the abdomen, without evidence of obstruction.
--- NOTE | 2016-12-08 12:09 | CARD ---
APPROVED REPORT EXAM: Two-dimensional and M-mode echocardiogram with Doppler and color Doppler. Other Information Quality : Good INDICATION cardiac arrest 2D DIMENSIONS Left Atrium(2D)2.8 (1.6-4.0cm)IVSd1.0 (0.7-1.1cm) Aortic Root(2D)3.1 (2.0-3.7cm)LVDd4.1 (3.9-5.9cm) LVOT Diameter2.0 (1.8-2.4cm)PWd1.2 (0.7-1.1cm) LVDs3.3 (2.5-4.0cm)FS (%) 17.0 % SV30.5 mlLVEF(%)35.0 (>50%) Aortic Valve AoV Peak Jesus.62.5cm/sAoV VTI9.6cm AO Peak GR.1.6mmHgLVOT VTI 8.58cm AO Mean GR.1mmHgAVA (VTI)2.80cm2 Mitral Valve MV E Xipgitdr24.7cm/sMV DECEL [id number] MV A Njizhqee84.3cm/sE/A Ratio1.2 TDI Lateral E' P. V8.49cm/sMedial E' P. V7.60cm/s E/Lateral E'5.7E/Medial E'6.4 Tricuspid Valve TR P. Dwaawrpz217qg/sRAP [id number] TR Peak Gr.42vrLsMSHI86zvYb LEFT VENTRICLE The left ventricle is normal size. There is normal left ventricular wall thickness. The systolic func tion is moderately impaired. The Ejection Fraction is 30-35%. There is moderate global hypokinesis of the left ventricle. RIGHT VENTRICLE The right ventricle is normal size. The right ventricular systolic function is normal. ATRIA The left atrium size is normal. The right atrium size is normal. The interatrial septum is intact wit h no evidence for an atrial septal defect or patent foramen ovale as noted on 2-D or Doppler imaging. AORTIC VALVE The aortic valve is not well visualized. Doppler and Color Flow revealed no significant aortic regurg itation. There is no significant aortic valvular stenosis. MITRAL VALVE The mitral valve is normal in structure and function. There is no evidence of mitral valve prolapse. There is no mitral valve stenosis. Doppler and Color-flow revealed mild mitral regurgitation. TRICUSPID VALVE The tricuspid valve is normal in structure and function. Doppler and Color Flow revealed trace to mil d tricuspid regurgitation. The PA pressure was estimated at 28 mmHg. There is no tricuspid valve sten osis. PULMONIC VALVE The pulmonic valve is not well visualized. Doppler and Color Flow revealed no pulmonic valvular regur gitation. There is no pulmonic valvular stenosis. GREAT VESSELS The aortic root is normal in size. The ascending aorta is not well seen. The IVC was not visualized. PERICARDIAL EFFUSION There is no evidence of significant pericardial effusion. Critical Notification Critical Value: No <Conclusion> The systolic function is moderately impaired. The Ejection Fraction is 30-35%. There is moderate global hypokinesis of the left ventricle.
[2016-12-08 12:11] LABS: CKMB INDEX 0.7 % (0-4)
--- NOTE | 2016-12-08 12:24 | PDOC ---
Provider Note Provider Note acute resp fail septic shock abnl cxr clifford vent support, id consult, pressors [id number] MIKAL KULKARNI MD Dec 08, 2016 12:24
[2016-12-08 12:26] LABS: CALCIUM 7.2 mg/dL (8.5-10.1); CREATININE 3.7 mg/dL (0.7-1.3); GFR 21.2; POTASSIUM 5.2 mmol/L (3.5-5.1)
[2016-12-08] MEDS ORDERED: SUCCINYLCHOLINE 200 MG/10 ML VIAL. ONE (13:00)
[2016-12-08] MEDS ORDERED: ETOMIDATE 20 MG/10 ML VIAL. IV ONE (13:00)
[2016-12-08 13:12] LABS: BARBITURATES NEG (NEG); BENZODIAZEPINES POS (NEG); CANNABINOIDS POS (NEG); COCAINE POS (NEG); METHADONE NEG (NEG); OPIATES POS (NEG); PHENCYCLIDINE NEG (NEG)
[2016-12-08 13:14] LABS: ETHANOL, URINE NEG (NEG)
[2016-12-08] MEDS: BUDESONIDE 0.5 MG/2 ML NEBU NEB SCH ×2 (13:21→19:44)
[2016-12-08] MEDS: IPRATRPIUM/ALBUTEROL 0.5/2.5MG 3 ML NEBU. NEB SCH ×3 (13:21→19:44)
[2016-12-08] MEDS: HEPARIN 25,000UTS/500ML PREMIX 500 ML IV PRN (13:43)
[2016-12-08 13:54] LABS: CHOLESTEROL/HDL RATIO 3.9
[2016-12-08] MEDS ORDERED: HEPARIN PF for SUB-Q USE 5,000 UNIT/0.5 ML VIAL. SQ SCH (14:00)
[2016-12-08] MEDS ORDERED: VANCOMYCIN 1 GM in IV NORMAL SALINE 250ML 250 ML IV ONE (14:00)
--- NOTE | 2016-12-08 14:10 | CONS ---
DATE OF CONSULTATION: 12/08/2016 I was asked to see this 51-year-old gentleman for acute respiratory failure. HISTORY OF PRESENT ILLNESS: The patient is currently on the ventilator and is sedated. All of the information was obtained from chart, nursing staff and his significant other. He has not felt good for the past week. He has had increased shortness of breath, cough. He did have vomiting. He does smoke and does drugs. He had body ache. His influenza A and B was negative today. He was found to have creatinine of 6.1. He has had diarrhea. He coded earlier today. He had PEA, had CPR, was intubated and transferred to ICU. Currently, he is on the ventilator in ICU on Versed drip. He is on dopamine and Levophed. His heart rate also was low during the code. His blood pressure currently is 125/68 and heart rate 105 on 10 of dopamine and 25 of Levophed. PAST MEDICAL HISTORY: None. ALLERGIES: NO KNOWN DRUG ALLERGIES. MEDICATIONS: At home, none. Currently, he is on Levophed, dopamine, IV fluid, Pepcid, Rocephin, heparin subq, and nicotine patch. SOCIAL HISTORY: Positive for smoking and doing drugs. FAMILY HISTORY: There is no history of lung disease. REVIEW OF SYSTEMS: As mentioned above, I have discussed the patient with his significant other and RN. Other systems are otherwise negative. PHYSICAL EXAMINATION: GENERAL: This is a thin gentleman on the ventilator. VITAL SIGNS: His O2 saturation is not reading well, it is 93%; heart rate 105, blood pressure 124/60, temperature 96. HEENT: Normocephalic, atraumatic. He is orally intubated. Nose is clear. NECK: There is no JVD, lymphadenopathy or thyromegaly. CARDIOVASCULAR: Slightly tachycardic. CHEST: Inspection is normal. LUNGS: There are bibasilar crackles, dullness at the bases. ABDOMEN: Slightly distended, diminished bowel sounds. There is no mass. EXTREMITIES: There is no edema. LYMPHATICS: There is no lymphadenopathy. NEUROLOGIC: He is sedated on the ventilator. SKIN: Warm. LABORATORY DATA: I reviewed the following lab data: Chest x-ray shows ET tube was in good position. There is bilateral infiltrate, bilateral hyperinflation. ABG: pH 7.02, pCO2 of 43, pO2 of 109, on assist control rate of 12, tidal volume 500, PEEP of 5, FiO2 of 100%, sodium 130, potassium 4.7, chloride 95, CO2 of 16, glucose 98, BUN 64, creatinine 3.8. On admission, his creatinine was 6.1. WBC 16.8, hemoglobin 15.1, platelets 266. Influenza A and B negative. His urine showed moderate blood. IMPRESSION: 1. Acute hypoxemic respiratory failure, multifactorial in etiology. 2. Abnormal chest x-ray. 3. Pulmonary infiltrate, could be secondary to aspiration pneumonia versus pneumonia. 4. Septic shock. 5. Acute kidney injury. 6. Smoker. 7. History of drug abuse. 8. Status post cardiopulmonary arrest. 9. Hypotension. PLAN AND RECOMMENDATIONS: 1. Titrate FiO2 to keep O2 saturation 94%. 2. Continue ventilator support. Ventilatory setting was reviewed. I changed respiratory rate to 20, PEEP to 7. I will do ABG at 1500. 3. Bronchodilator. 4. Sputum culture, blood culture, urine culture. 5. ID consult. 6. Continue Rocephin. 7. Pepcid and heparin for stress ulcer and DVT prophylaxis. 8. Urine for legionella and strep pneumonia antigen. 9. Urine drug screen. 10. ABG on portable chest x-ray. 11. Monitor respiratory status very closely. 12. Continue ventilatory support until the patient is more stable. 13. Continue pressors to keep his mean arterial pressure 65. 14. Cardiology and nephrology are on the case. 15. Continue IV fluid. The patient has received 4 liters of IV fluid and is on half normal with one amp of bicarb per nephrology. 16. The findings and recommendations were discussed with RN and RT. Thank you very much for allowing me to participate in care of this very nice gentleman. MIKAL KULKARNI M.D. DR: MARCIAL/noé JOB#: [id number] / [id number] MELONY
[2016-12-08] MEDS: PIPERACILLIN/TAZOBACTAM 2.25 GM in IV NORMAL SALINE 50ML 50 ML IV SCH ×2 (14:21→18:18)
[2016-12-08 15:30] LABS: HCO3 ABG 11 mmol/L (21-28); PCO2 ABG 35 mmHg (35-46); PO2 ABG 93 mmHg (75-108); SAT O2 ABG 95 % (92-99)
[2016-12-08] MEDS ORDERED: CEFTRIAXONE SODIUM 1 GM in IV NORMAL SALINE 50ML 50 ML IV SCH (15:30)
[2016-12-08 15:34] LABS: FIO2 ABG 100; PH ABG 7.12 (7.35-7.45)
[2016-12-08] MEDS ORDERED: PIPERACILLIN/TAZOBACTAM 3.375 GM in IV NORMAL SALINE 50ML 50 ML IV SCH (18:00)
[2016-12-08] MEDS: FAMOTIDINE 20 MG/2 ML VIAL IVP SCH (20:45)
[2016-12-08] MEDS: HEPARIN for IV BOLUS 10,000 UNIT/10 ML VIAL. IV PRN (21:01)
[2016-12-09] VITALS (29 sets, daily range): BP systolic 72–121; BP diastolic 50–76
[2016-12-09 00:09] LABS: SPECIMEN SOURCE Urine (.)
[2016-12-09] MEDS: ACETAMINOPHEN 500 MG TABLET PO PRN ×2 (00:17→15:04)
[2016-12-09] MEDS: PIPERACILLIN/TAZOBACTAM 2.25 GM in IV NORMAL SALINE 50ML 50 ML IV SCH ×2 (00:20→06:17)
[2016-12-09] MEDS: NOREPINEPHRINE VIAL 8 MG in IV NORMAL SALINE 250ML 250 ML IV PRN ×2 (03:04→08:46)
[2016-12-09] MEDS: SODIUM BICARBONATE VIAL 50 MEQ in IV 1/2 NORMAL SALINE 1,000 ML IV SCH (05:11)
[2016-12-09] MEDS ORDERED: FENTANYL PF 100 MCG/2 ML VIAL. IV PRN ×2 (05:15)
--- NOTE | 2016-12-09 05:15 | PDOC ---
PULMONARY PROGRESS NOTES Subjective on vent on sedation, on levo and dopamine, tachycardic, tachypneac Vitals Vital Signs Date Time Temp Pulse Resp B/P Pulse Ox O2 Delivery O2 Flow Rate FiO2 12/09/16 04:00 138 100/70 12/09/16 04:00 98.0 30 100 98.0 12/09/16 04:00 Mechanical Ventilator 4.0 Comments ros as mentioned as above discussed w rn, off sedation agitated. HEENT: Other (nc at perrl, orally intubated) Lungs: Crackles Cardiovascular: S1, S2 Abdomen: Soft, Non-tender, Other (no mass) Extremities: No Edema Skin: Warm Labs Laboratory Tests Test 12/07/16 14:25 12/07/16 14:30 12/07/16 16:55 12/07/16 18:40 White Blood Count 19.4x10^3/uL (4.0-11.0) Red Blood Count 6.06x10^6/uL (4.30-5.70) Hemoglobin 18.2g/dL (13.0-17.5) Hematocrit 54.2% (39.0-53.0) Mean Corpuscular Volume 89fL (79-100) Mean Corpuscular Hemoglobin 30pg (25-35) Mean Corpuscular Hemoglobin Concent 34g/dL (31-37) Red Cell Distribution Width 13.9% (11.5-14.5) Platelet Count 288x10^3/uL (140-400) Neutrophils (%) (Auto) 88% (31-73) Lymphocytes (%) (Auto) 3% (24-48) Monocytes (%) (Auto) 9% (0-9) Eosinophils (%) (Auto) 0% (0-3) Basophils (%) (Auto) 1% (0-3) Neutrophils # (Auto) 17.0x10^3uL (1.8-7.7) Lymphocytes # (Auto) 0.6x10^3/uL (1.0-4.8) Monocytes # (Auto) 1.7x10^3/uL (0.0-1.1) Eosinophils # (Auto) 0.0x10^3/uL (0.0-0.7) Basophils # (Auto) 0.1x10^3/uL (0.0-0.2) Segmented Neutrophils % 71% (35-66) Band Neutrophils % 20% (0-9) Lymphocytes % 6% (24-48) Monocytes % 3% (0-10) Toxic Granulation Present Toxic Vacuolation Present Dohle Bodies Present Platelet Estimate Adequate (ADEQUATE) Sodium Level 124mmol/L (136-145) Potassium Level 5.0mmol/L (3.5-5.1) Chloride Level 83mmol/L (98-107) Carbon Dioxide Level 20mmol/L (21-32) Anion Gap 21 (6-14) Blood Urea Nitrogen 73mg/dL (8-26) Creatinine 6.1mg/dL (0.7-1.3) Estimated GFR (Cockcroft-Gault) 11.9 Glucose Level 138mg/dL (70-99) Lactic Acid Level 4.2mmol/L (0.4-2.0) 2.9mmol/L (0.4-2.0) Calcium Level 7.9mg/dL (8.5-10.1) Influenza Type A Antigen Negative (NEGATIVE) Influenza Type B Antigen Negative (NEGATIVE) Urine Collection Type Unknown Urine Color Yellow Urine Clarity Turbid Urine pH 5.0 Urine Specific [employer] 1.020 Urine Protein 100mg/dL (NEG-TRACE) Urine Glucose (UA) Negativemg/dL (NEG) Urine Ketones (Stick) Negativemg/dL (NEG) Urine Blood Moderate (NEG) Urine Nitrite Negative (NEG) Urine Bilirubin Small (NEG) Urine Urobilinogen Dipstick 0.2mg/dL (0.2 mg/dL) Urine Leukocyte Esterase Negative (NEG) Urine RBC 0/HPF (0-2) Urine WBC 1-4/HPF (0-4) Urine Amorphous Sediment Present/HPF Urine Bacteria 0/HPF (0-FEW) Urine Hyaline Casts Many/HPF Urine Granular Casts Few/HPF Test 12/07/16 18:46 12/08/16 04:55 12/08/16 09:30 12/08/16 11:05 Clostridium difficile Toxin (PCR) Negative (Negative) White Blood Count 16.8x10^3/uL (4.0-11.0) Red Blood Count 4.96x10^6/uL (4.30-5.70) Hemoglobin 15.1g/dL (13.0-17.5) Hematocrit 45.6% (39.0-53.0) Mean Corpuscular Volume 92fL (79-100) Mean Corpuscular Hemoglobin 30pg (25-35) Mean Corpuscular Hemoglobin Concent 33g/dL (31-37) Red Cell Distribution Width 14.3% (11.5-14.5) Platelet Count 266x10^3/uL (140-400) Neutrophils (%) (Auto) 87% (31-73) Lymphocytes (%) (Auto) 4% (24-48) Monocytes (%) (Auto) 9% (0-9) Eosinophils (%) (Auto) 0% (0-3) Basophils (%) (Auto) 0% (0-3) Neutrophils # (Auto) 14.6x10^3uL (1.8-7.7) Lymphocytes # (Auto) 0.6x10^3/uL (1.0-4.8) Monocytes # (Auto) 1.5x10^3/uL (0.0-1.1) Eosinophils # (Auto) 0.0x10^3/uL (0.0-0.7) Basophils # (Auto) 0.1x10^3/uL (0.0-0.2) Sodium Level 130mmol/L (136-145) 134mmol/L (136-145) Potassium Level 4.7mmol/L (3.5-5.1) 5.2mmol/L (3.5-5.1) Chloride Level 95mmol/L (98-107) 99mmol/L (98-107) Carbon Dioxide Level 16mmol/L (21-32) 8mmol/L (21-32) Anion Gap 19 (6-14) 27 (6-14) Blood Urea Nitrogen 64mg/dL (8-26) 60mg/dL (8-26) Creatinine 3.8mg/dL (0.7-1.3) 3.7mg/dL (0.7-1.3) Estimated GFR (Cockcroft-Gault) 20.6 21.2 Glucose Level 98mg/dL (70-99) 128mg/dL (70-99) Calcium Level 6.9mg/dL (8.5-10.1) 7.2mg/dL (8.5-10.1) Triglycerides Level 315mg/dL (0-150) Cholesterol Level 114mg/dL (0-200) LDL Cholesterol, Calculated 22mg/dL (0-100) VLDL Cholesterol, Calculated 63mg/dL (0-40) HDL Cholesterol 29mg/dL (40-60) Cholesterol/HDL Ratio 3.9 D-Dimer (Orin) 2.74ug/mlFEU (0.00-0.50) Magnesium Level 2.3mg/dL (1.8-2.4) Creatine Kinase 2821U/L (39-308) Creatine Kinase MB (Mass) 19.2ng/mL (0.0-3.6) Creatine Kinase MB Relative Index 0.7% (0-4) Troponin I Quantitative 4.144ng/mL (0.000-0.055) O2 Saturation 95% (92-99) Arterial Blood pH 7.02 (7.35-7.45) Arterial Blood pCO2 at Patient Temp 43mmHg (35-46) Arterial Blood pO2 at Patient Temp 109mmHg (75-108) Arterial Blood HCO3 11mmol/L (21-28) Arterial Blood Base Excess -19mmol/L (-3-3) FiO2 100 Test 12/08/16 11:30 12/08/16 12:59 12/08/16 14:49 12/08/16 14:53 Lactic Acid Level 3.6mmol/L (0.4-2.0) Body Fluid Culture (LAB) (.) Urine Opiates Screen Pos (NEG) Urine Methadone Screen Neg (NEG) Urine Barbiturates Neg (NEG) Urine Phencyclidine Screen Neg (NEG) Urine Amphetamine/Methamphetamine Neg (NEG) Urine Benzodiazepines Screen Pos (NEG) Urine Cocaine Screen Pos (NEG) Urine Cannabinoids Screen Pos (NEG) Urine Ethyl Alcohol Neg (NEG) Urine Legionella Antigen Negative (Negative) Streptococcus pneumoniae Antigen Negative (Negative) Organism Identification (LAB) (.) NEFTALI Specimen Source Urine (.) Glucose (Fingerstick) 175mg/dL (70-99) Troponin I Quantitative 3.064ng/mL (0.000-0.055) Test 12/08/16 15:25 12/08/16 16:00 12/08/16 16:19 12/08/16 20:15 O2 Saturation 95% (92-99) Arterial Blood pH 7.12 (7.35-7.45) Arterial Blood pCO2 at Patient Temp 35mmHg (35-46) Arterial Blood pO2 at Patient Temp 93mmHg (75-108) Arterial Blood HCO3 11mmol/L (21-28) Arterial Blood Base Excess -17mmol/L (-3-3) FiO2 100 Lactic Acid Level 2.1mmol/L (0.4-2.0) 1.5mmol/L (0.4-2.0) Nasal Screen MRSA (PCR) Negative (Negative) Heparin Anti-Xa Act, Unfractionated < 0.10IU/mL (0.30-0.70) Laboratory Tests Test 12/08/16 09:30 12/08/16 11:05 12/08/16 11:30 12/08/16 12:59 D-Dimer (Orin) 2.74ug/mlFEU (0.00-0.50) Sodium Level 134mmol/L (136-145) Potassium Level 5.2mmol/L (3.5-5.1) Chloride Level 99mmol/L (98-107) Carbon Dioxide Level 8mmol/L (21-32) Anion Gap 27 (6-14) Blood Urea Nitrogen 60mg/dL (8-26) Creatinine 3.7mg/dL (0.7-1.3) Estimated GFR (Cockcroft-Gault) 21.2 Glucose Level 128mg/dL (70-99) Calcium Level 7.2mg/dL (8.5-10.1) Magnesium Level 2.3mg/dL (1.8-2.4) Creatine Kinase 2821U/L (39-308) Creatine Kinase MB (Mass) 19.2ng/mL (0.0-3.6) Creatine Kinase MB Relative Index 0.7% (0-4) Troponin I Quantitative 4.144ng/mL (0.000-0.055) O2 Saturation 95% (92-99) Arterial Blood pH 7.02 (7.35-7.45) Arterial Blood pCO2 at Patient Temp 43mmHg (35-46) Arterial Blood pO2 at Patient Temp 109mmHg (75-108) Arterial Blood HCO3 11mmol/L (21-28) Arterial Blood Base Excess -19mmol/L (-3-3) FiO2 100 Lactic Acid Level 3.6mmol/L (0.4-2.0) Body Fluid Culture (LAB) (.) Urine Opiates Screen Pos (NEG) Urine Methadone Screen Neg (NEG) Urine Barbiturates Neg (NEG) Urine Phencyclidine Screen Neg (NEG) Urine Amphetamine/Methamphetamine Neg (NEG) Urine Benzodiazepines Screen Pos (NEG) Urine Cocaine Screen Pos (NEG) Urine Cannabinoids Screen Pos (NEG) Urine Ethyl Alcohol Neg (NEG) Urine Legionella Antigen Negative (Negative) Streptococcus pneumoniae Antigen Negative (Negative) Organism Identification (LAB) (.) NEFTALI Specimen Source Urine (.) Test 12/08/16 14:49 12/08/16 14:53 12/08/16 15:25 12/08/16 16:00 Glucose (Fingerstick) 175mg/dL (70-99) Troponin I Quantitative 3.064ng/mL (0.000-0.055) O2 Saturation 95% (92-99) Arterial Blood pH 7.12 (7.35-7.45) Arterial Blood pCO2 at Patient Temp 35mmHg (35-46) Arterial Blood pO2 at Patient Temp 93mmHg (75-108) Arterial Blood HCO3 11mmol/L (21-28) Arterial Blood Base Excess -17mmol/L (-3-3) FiO2 100 Lactic Acid Level 2.1mmol/L (0.4-2.0) Test 12/08/16 16:19 12/08/16 20:15 Nasal Screen MRSA (PCR) Negative (Negative) Heparin Anti-Xa Act, Unfractionated < 0.10IU/mL (0.30-0.70) Lactic Acid Level 1.5mmol/L (0.4-2.0) Medications Active Scripts Medications Dose Route/Sig Days Date Category Percocet 5-325 Mg Tablet (Oxycodone/Acetaminophen) 1 Each Tablet 1-2 Tab PO Q4HRS 05/25/16 Reported Ultram (Tramadol Hcl) 50 Mg Tablet 50 Mg PO Q6H PRN 05/22/16 Rx Robaxin (Methocarbamol) 500 Mg Tablet 500 Mg PO QID 05/22/16 Rx Comments cxr b lat infilt Impression . IMPRESSION: 1. Acute hypoxemic respiratory failure, multifactorial in etiology. 2. Abnormal chest x-ray. 3. Pulmonary infiltrate, could be secondary to aspiration pneumonia versus pneumonia. 4. Septic shock. 5. Acute kidney injury. 6. Smoker. 7. History of drug abuse. 8. Status post cardiopulmonary arrest. 9. Hypotension. Plan . PLAN AND RECOMMENDATIONS: 1. Titrate FiO2 to keep O2 saturation 94%. 2. Continue ventilator support. Ventilatory setting was reviewed. i personally decreased peep to 5 and fio2 to 80%, review abg. 3. Bronchodilator, to atrovent only, is tachy 4. fu Sputum culture, blood culture, urine culture. 5. ID consulted. 6. Continue abx 7. Pepcid and heparin for stress ulcer and DVT prophylaxis. 8. Urine for legionella and strep pneumonia antigen, neg. 9. Urine drug screen, pos. 10. ABG on portable chest x-ray in am. 11. Monitor respiratory status very closely. 12. Continue ventilatory support until the patient is more stable. 13. Continue pressors to keep his mean arterial pressure 65. try to taper off dopamine, is tachy 14. Cardiology and nephrology are on the case. 15. Continue IV fluid. The findings and recommendations were discussed with RN and RT. MIKAL KULKARNI MD Dec 09, 2016 05:15
[2016-12-09] MEDS: HEPARIN for IV BOLUS 10,000 UNIT/10 ML VIAL. IV PRN (05:47)
[2016-12-09] MEDS: MIDAZOLAM PREMIX 100 ML IV PRN ×2 (06:38→17:47)
[2016-12-09 06:41] LABS: CREATININE 2.4 mg/dL (0.7-1.3); POTASSIUM 4.3 mmol/L (3.5-5.1)
--- NOTE | 2016-12-09 06:54 | PDOC ---
PROGRESS NOTES Chief Complaint Chief Complaint cc: Weakness, dehydration 1. Cardiac arrest PEA (12/08) 2. Acute respiratory failure On mechanical Ventilation (12/08)- possible aspiration pneumonia 3. ASHLEY 4. Septic shock, multiorgan failure 5. Cardiomyopathy 6. Metabolic acidosis 7. Cocaine use 8. Elevated troponin, 9. Nicotine use. Plan On mechanical ventilation, at 80% Fio2 On Levophed gtt, titrate to MAP> 65 On Heparin gtt for 48 ACS protocol On Bicarb gtt, nephrology monitoring Replace electrolytes. Follow blood cx On JORDYN hamlin consulted. Echo result and labs reviewed, Multi organ failure, worsening CXR, prognosis guarded/ poor DVT/GI prophylaxis. cc time 32 min History of Present Illness History of Present Illness no overnight events, worsening CXR. Vitals Vitals Vital Signs Date Time Temp Pulse Resp B/P Pulse Ox O2 Delivery O2 Flow Rate FiO2 12/09/16 05:00 125 97/62 12/09/16 05:00 29 97 12/09/16 05:00 Ventilator 12/09/16 04:00 98.0 98.0 12/08/16 08:30 4.0 Physical Exam General: No acute distress, Other (intubated/sedated ) Heart: Normal S1, Normal S2, Other (tachycardia. ) Lungs: Crackles Abdomen: Normal bowel sounds, Soft, No tenderness Extremities: No edema, Other (DP pulses not palpable ) Skin: No significant lesion Labs LABS Laboratory Tests Test 12/08/16 09:30 12/08/16 11:05 12/08/16 11:30 12/08/16 12:59 D-Dimer (Orin) 2.74ug/mlFEU (0.00-0.50) Sodium Level 134mmol/L (136-145) Potassium Level 5.2mmol/L (3.5-5.1) Chloride Level 99mmol/L (98-107) Carbon Dioxide Level 8mmol/L (21-32) Anion Gap 27 (6-14) Blood Urea Nitrogen 60mg/dL (8-26) Creatinine 3.7mg/dL (0.7-1.3) Estimated GFR (Cockcroft-Gault) 21.2 Glucose Level 128mg/dL (70-99) Calcium Level 7.2mg/dL (8.5-10.1) Magnesium Level 2.3mg/dL (1.8-2.4) Creatine Kinase 2821U/L (39-308) Creatine Kinase MB (Mass) 19.2ng/mL (0.0-3.6) Creatine Kinase MB Relative Index 0.7% (0-4) Troponin I Quantitative 4.144ng/mL (0.000-0.055) O2 Saturation 95% (92-99) Arterial Blood pH 7.02 (7.35-7.45) Arterial Blood pCO2 at Patient Temp 43mmHg (35-46) Arterial Blood pO2 at Patient Temp 109mmHg (75-108) Arterial Blood HCO3 11mmol/L (21-28) Arterial Blood Base Excess -19mmol/L (-3-3) FiO2 100 Lactic Acid Level 3.6mmol/L (0.4-2.0) Body Fluid Culture (LAB) (.) Urine Opiates Screen Pos (NEG) Urine Methadone Screen Neg (NEG) Urine Barbiturates Neg (NEG) Urine Phencyclidine Screen Neg (NEG) Urine Amphetamine/Methamphetamine Neg (NEG) Urine Benzodiazepines Screen Pos (NEG) Urine Cocaine Screen Pos (NEG) Urine Cannabinoids Screen Pos (NEG) Urine Ethyl Alcohol Neg (NEG) Urine Legionella Antigen Negative (Negative) Streptococcus pneumoniae Antigen Negative (Negative) Organism Identification (LAB) (.) NEFTALI Specimen Source Urine (.) Test 12/08/16 14:49 12/08/16 14:53 12/08/16 15:25 12/08/16 16:00 Glucose (Fingerstick) 175mg/dL (70-99) Troponin I Quantitative 3.064ng/mL (0.000-0.055) O2 Saturation 95% (92-99) Arterial Blood pH 7.12 (7.35-7.45) Arterial Blood pCO2 at Patient Temp 35mmHg (35-46) Arterial Blood pO2 at Patient Temp 93mmHg (75-108) Arterial Blood HCO3 11mmol/L (21-28) Arterial Blood Base Excess -17mmol/L (-3-3) FiO2 100 Lactic Acid Level 2.1mmol/L (0.4-2.0) Test 12/08/16 16:19 12/08/16 20:15 12/09/16 03:45 12/09/16 05:40 Nasal Screen MRSA (PCR) Negative (Negative) Heparin Anti-Xa Act, Unfractionated < 0.10IU/mL (0.30-0.70) < 0.10IU/mL (0.30-0.70) Lactic Acid Level 1.5mmol/L (0.4-2.0) White Blood Count 22.9x10^3/uL (4.0-11.0) Red Blood Count 4.34x10^6/uL (4.30-5.70) Hemoglobin 13.0g/dL (13.0-17.5) Hematocrit 39.7% (39.0-53.0) Mean Corpuscular Volume 92fL (79-100) Mean Corpuscular Hemoglobin 30pg (25-35) Mean Corpuscular Hemoglobin Concent 33g/dL (31-37) Red Cell Distribution Width 14.5% (11.5-14.5) Platelet Count 256x10^3/uL (140-400) Assessment and Plan Assessmemt and Plan Problems Medical Problems: (1) ARF (acute renal failure) Status: Acute (2) CAP (community acquired pneumonia) Status: Acute Problems: Comment Review of Relevant I have reviewed the following items immanuel (where applicable) has been applied. Labs Laboratory Tests Test 12/07/16 14:25 12/07/16 14:30 12/07/16 16:55 12/07/16 18:40 White Blood Count 19.4x10^3/uL (4.0-11.0) Red Blood Count 6.06x10^6/uL (4.30-5.70) Hemoglobin 18.2g/dL (13.0-17.5) Hematocrit 54.2% (39.0-53.0) Mean Corpuscular Volume 89fL (79-100) Mean Corpuscular Hemoglobin 30pg (25-35) Mean Corpuscular Hemoglobin Concent 34g/dL (31-37) Red Cell Distribution Width 13.9% (11.5-14.5) Platelet Count 288x10^3/uL (140-400) Neutrophils (%) (Auto) 88% (31-73) Lymphocytes (%) (Auto) 3% (24-48) Monocytes (%) (Auto) 9% (0-9) Eosinophils (%) (Auto) 0% (0-3) Basophils (%) (Auto) 1% (0-3) Neutrophils # (Auto) 17.0x10^3uL (1.8-7.7) Lymphocytes # (Auto) 0.6x10^3/uL (1.0-4.8) Monocytes # (Auto) 1.7x10^3/uL (0.0-1.1) Eosinophils # (Auto) 0.0x10^3/uL (0.0-0.7) Basophils # (Auto) 0.1x10^3/uL (0.0-0.2) Segmented Neutrophils % 71% (35-66) Band Neutrophils % 20% (0-9) Lymphocytes % 6% (24-48) Monocytes % 3% (0-10) Toxic Granulation Present Toxic Vacuolation Present Dohle Bodies Present Platelet Estimate Adequate (ADEQUATE) Sodium Level 124mmol/L (136-145) Potassium Level 5.0mmol/L (3.5-5.1) Chloride Level 83mmol/L (98-107) Carbon Dioxide Level 20mmol/L (21-32) Anion Gap 21 (6-14) Blood Urea Nitrogen 73mg/dL (8-26) Creatinine 6.1mg/dL (0.7-1.3) Estimated GFR (Cockcroft-Gault) 11.9 Glucose Level 138mg/dL (70-99) Lactic Acid Level 4.2mmol/L (0.4-2.0) 2.9mmol/L (0.4-2.0) Calcium Level 7.9mg/dL (8.5-10.1) Influenza Type A Antigen Negative (NEGATIVE) Influenza Type B Antigen Negative (NEGATIVE) Urine Collection Type Unknown Urine Color Yellow Urine Clarity Turbid Urine pH 5.0 Urine Specific Essie 1.020 Urine Protein 100mg/dL (NEG-TRACE) Urine Glucose (UA) Negativemg/dL (NEG) Urine Ketones (Stick) Negativemg/dL (NEG) Urine Blood Moderate (NEG) Urine Nitrite Negative (NEG) Urine Bilirubin Small (NEG) Urine Urobilinogen Dipstick 0.2mg/dL (0.2 mg/dL) Urine Leukocyte Esterase Negative (NEG) Urine RBC 0/HPF (0-2) Urine WBC 1-4/HPF (0-4) Urine Amorphous Sediment Present/HPF Urine Bacteria 0/HPF (0-FEW) Urine Hyaline Casts Many/HPF Urine Granular Casts Few/HPF Test 12/07/16 18:46 12/08/16 04:55 12/08/16 09:30 12/08/16 11:05 Clostridium difficile Toxin (PCR) Negative (Negative) White Blood Count 16.8x10^3/uL (4.0-11.0) Red Blood Count 4.96x10^6/uL (4.30-5.70) Hemoglobin 15.1g/dL (13.0-17.5) Hematocrit 45.6% (39.0-53.0) Mean Corpuscular Volume 92fL (79-100) Mean Corpuscular Hemoglobin 30pg (25-35) Mean Corpuscular Hemoglobin Concent 33g/dL (31-37) Red Cell Distribution Width 14.3% (11.5-14.5) Platelet Count 266x10^3/uL (140-400) Neutrophils (%) (Auto) 87% (31-73) Lymphocytes (%) (Auto) 4% (24-48) Monocytes (%) (Auto) 9% (0-9) Eosinophils (%) (Auto) 0% (0-3) Basophils (%) (Auto) 0% (0-3) Neutrophils # (Auto) 14.6x10^3uL (1.8-7.7) Lymphocytes # (Auto) 0.6x10^3/uL (1.0-4.8) Monocytes # (Auto) 1.5x10^3/uL (0.0-1.1) Eosinophils # (Auto) 0.0x10^3/uL (0.0-0.7) Basophils # (Auto) 0.1x10^3/uL (0.0-0.2) Sodium Level 130mmol/L (136-145) 134mmol/L (136-145) Potassium Level 4.7mmol/L (3.5-5.1) 5.2mmol/L (3.5-5.1) Chloride Level 95mmol/L (98-107) 99mmol/L (98-107) Carbon Dioxide Level 16mmol/L (21-32) 8mmol/L (21-32) Anion Gap 19 (6-14) 27 (6-14) Blood Urea Nitrogen 64mg/dL (8-26) 60mg/dL (8-26) Creatinine 3.8mg/dL (0.7-1.3) 3.7mg/dL (0.7-1.3) Estimated GFR (Cockcroft-Gault) 20.6 21.2 Glucose Level 98mg/dL (70-99) 128mg/dL (70-99) Calcium Level 6.9mg/dL (8.5-10.1) 7.2mg/dL (8.5-10.1) Triglycerides Level 315mg/dL (0-150) Cholesterol Level 114mg/dL (0-200) LDL Cholesterol, Calculated 22mg/dL (0-100) VLDL Cholesterol, Calculated 63mg/dL (0-40) HDL Cholesterol 29mg/dL (40-60) Cholesterol/HDL Ratio 3.9 D-Dimer (Orin) 2.74ug/mlFEU (0.00-0.50) Magnesium Level 2.3mg/dL (1.8-2.4) Creatine Kinase 2821U/L (39-308) Creatine Kinase MB (Mass) 19.2ng/mL (0.0-3.6) Creatine Kinase MB Relative Index 0.7% (0-4) Troponin I Quantitative 4.144ng/mL (0.000-0.055) O2 Saturation 95% (92-99) Arterial Blood pH 7.02 (7.35-7.45) Arterial Blood pCO2 at Patient Temp 43mmHg (35-46) Arterial Blood pO2 at Patient Temp 109mmHg (75-108) Arterial Blood HCO3 11mmol/L (21-28) Arterial Blood Base Excess -19mmol/L (-3-3) FiO2 100 Test 12/08/16 11:30 12/08/16 12:59 12/08/16 14:49 12/08/16 14:53 Lactic Acid Level 3.6mmol/L (0.4-2.0) Body Fluid Culture (LAB) (.) Urine Opiates Screen Pos (NEG) Urine Methadone Screen Neg (NEG) Urine Barbiturates Neg (NEG) Urine Phencyclidine Screen Neg (NEG) Urine Amphetamine/Methamphetamine Neg (NEG) Urine Benzodiazepines Screen Pos (NEG) Urine Cocaine Screen Pos (NEG) Urine Cannabinoids Screen Pos (NEG) Urine Ethyl Alcohol Neg (NEG) Urine Legionella Antigen Negative (Negative) Streptococcus pneumoniae Antigen Negative (Negative) Organism Identification (LAB) (.) NEFTALI Specimen Source Urine (.) Glucose (Fingerstick) 175mg/dL (70-99) Troponin I Quantitative 3.064ng/mL (0.000-0.055) Test 12/08/16 15:25 12/08/16 16:00 12/08/16 16:19 12/08/16 20:15 O2 Saturation 95% (92-99) Arterial Blood pH 7.12 (7.35-7.45) Arterial Blood pCO2 at Patient Temp 35mmHg (35-46) Arterial Blood pO2 at Patient Temp 93mmHg (75-108) Arterial Blood HCO3 11mmol/L (21-28) Arterial Blood Base Excess -17mmol/L (-3-3) FiO2 100 Lactic Acid Level 2.1mmol/L (0.4-2.0) 1.5mmol/L (0.4-2.0) Nasal Screen MRSA (PCR) Negative (Negative) Heparin Anti-Xa Act, Unfractionated < 0.10IU/mL (0.30-0.70) Test 12/09/16 03:45 12/09/16 05:40 Heparin Anti-Xa Act, Unfractionated < 0.10IU/mL (0.30-0.70) White Blood Count 22.9x10^3/uL (4.0-11.0) Red Blood Count 4.34x10^6/uL (4.30-5.70) Hemoglobin 13.0g/dL (13.0-17.5) Hematocrit 39.7% (39.0-53.0) Mean Corpuscular Volume 92fL (79-100) Mean Corpuscular Hemoglobin 30pg (25-35) Mean Corpuscular Hemoglobin Concent 33g/dL (31-37) Red Cell Distribution Width 14.5% (11.5-14.5) Platelet Count 256x10^3/uL (140-400) Laboratory Tests Test 12/08/16 09:30 12/08/16 11:05 12/08/16 11:30 12/08/16 12:59 D-Dimer (Orin) 2.74ug/mlFEU (0.00-0.50) Sodium Level 134mmol/L (136-145) Potassium Level 5.2mmol/L (3.5-5.1) Chloride Level 99mmol/L (98-107) Carbon Dioxide Level 8mmol/L (21-32) Anion Gap 27 (6-14) Blood Urea Nitrogen 60mg/dL (8-26) Creatinine 3.7mg/dL (0.7-1.3) Estimated GFR (Cockcroft-Gault) 21.2 Glucose Level 128mg/dL (70-99) Calcium Level 7.2mg/dL (8.5-10.1) Magnesium Level 2.3mg/dL (1.8-2.4) Creatine Kinase 2821U/L (39-308) Creatine Kinase MB (Mass) 19.2ng/mL (0.0-3.6) Creatine Kinase MB Relative Index 0.7% (0-4) Troponin I Quantitative 4.144ng/mL (0.000-0.055) O2 Saturation 95% (92-99) Arterial Blood pH 7.02 (7.35-7.45) Arterial Blood pCO2 at Patient Temp 43mmHg (35-46) Arterial Blood pO2 at Patient Temp 109mmHg (75-108) Arterial Blood HCO3 11mmol/L (21-28) Arterial Blood Base Excess -19mmol/L (-3-3) FiO2 100 Lactic Acid Level 3.6mmol/L (0.4-2.0) Body Fluid Culture (LAB) (.) Urine Opiates Screen Pos (NEG) Urine Methadone Screen Neg (NEG) Urine Barbiturates Neg (NEG) Urine Phencyclidine Screen Neg (NEG) Urine Amphetamine/Methamphetamine Neg (NEG) Urine Benzodiazepines Screen Pos (NEG) Urine Cocaine Screen Pos (NEG) Urine Cannabinoids Screen Pos (NEG) Urine Ethyl Alcohol Neg (NEG) Urine Legionella Antigen Negative (Negative) Streptococcus pneumoniae Antigen Negative (Negative) Organism Identification (LAB) (.) NEFTALI Specimen Source Urine (.) Test 12/08/16 14:49 12/08/16 14:53 12/08/16 15:25 12/08/16 16:00 Glucose (Fingerstick) 175mg/dL (70-99) Troponin I Quantitative 3.064ng/mL (0.000-0.055) O2 Saturation 95% (92-99) Arterial Blood pH 7.12 (7.35-7.45) Arterial Blood pCO2 at Patient Temp 35mmHg (35-46) Arterial Blood pO2 at Patient Temp 93mmHg (75-108) Arterial Blood HCO3 11mmol/L (21-28) Arterial Blood Base Excess -17mmol/L (-3-3) FiO2 100 Lactic Acid Level 2.1mmol/L (0.4-2.0) Test 12/08/16 16:19 12/08/16 20:15 12/09/16 03:45 12/09/16 05:40 Nasal Screen MRSA (PCR) Negative (Negative) Heparin Anti-Xa Act, Unfractionated < 0.10IU/mL (0.30-0.70) < 0.10IU/mL (0.30-0.70) Lactic Acid Level 1.5mmol/L (0.4-2.0) White Blood Count 22.9x10^3/uL (4.0-11.0) Red Blood Count 4.34x10^6/uL (4.30-5.70) Hemoglobin 13.0g/dL (13.0-17.5) Hematocrit 39.7% (39.0-53.0) Mean Corpuscular Volume 92fL (79-100) Mean Corpuscular Hemoglobin 30pg (25-35) Mean Corpuscular Hemoglobin Concent 33g/dL (31-37) Red Cell Distribution Width 14.5% (11.5-14.5) Platelet Count 256x10^3/uL (140-400) Microbiology 12/07/16 Blood Culture - Preliminary, Resulted NO GROWTH AFTER 1 DAY 12/08/16 Gram Stain - Final, Complete Medications Current Medications Ketorolac Tromethamine 30 mg 30 mg 1X ONCE IV Last administered on 12/07/16 14:34; Start 12/07/16 at 14:30; Stop 12/07/16 at 14:31; Status DC Sodium Chloride 1,000 ml @ 1,000 mls/hr 1X ONCE IV Last administered on 14:34; Start 12/07/16 at 14:30; Stop 12/07/16 at 15:29; Status DC Ceftriaxone Sodium 1 gm/ Sodium Chloride 50 ml @ 100 mls/hr Q24H IV ; Start at 15:30; Stop 12/08/16 at 15:30; Status DC Azithromycin 250 ml @ 250 mls/hr 1X ONCE IV Last administered on 12/07/16 15 :48; Start 12/07/16 at 15:15; Stop 12/07/16 at 16:14; Status DC Sodium Chloride 1,000 ml @ 1,000 mls/hr 1X ONCE IV Last administered on 16:09; Start 12/07/16 at 15:15; Stop 12/07/16 at 16:14; Status DC Ceftriaxone Sodium 50 ml @ 100 mls/hr 1X ONCE IV Last administered on 15:29; Start 12/07/16 at 15:15; Stop 12/07/16 at 15:44; Status DC Sodium Chloride (Iv Sodium Chloride 0.9% 1000ml Bag) 1,000 ml @ 150 mls/hr 1X ONCE IV Last administered on 12/07/16 18:10; Start 12/07/16 at 15:15; Stop 11/11 at 21:54; Status DC Famotidine (Pepcid) 20 mg 1X ONCE IVP Last administered on 12/07/16 15:48; Start 12/07/16 at 15:45; Stop 12/07/16 at 15:46; Status DC Ondansetron HCl 4 mg 4 mg 1X ONCE IV Last administered on 12/07/16 16:09; Start 12/07/16 at 16:15; Stop 12/07/16 at 16:16; Status DC Sodium Chloride (Iv Sodium Chloride 0.9% 1000ml Bag) 1,000 ml @ 150 mls/hr Q6H40M IV Last administered on 12/08/16 06:38; Start 12/07/16 at 16:30; Stop 12/08/16 at 14:21; Status DC Ondansetron HCl (Zofran) 4 mg PRN Q6HRS PRN IV NAUSEA/VOMITING; Start 12/07/16 at 16:30 Acetaminophen (Tylenol) 500 mg PRN Q6HRS PRN PO MILD PAIN / TEMP Last administered on 12/09/16 00:17; Start 12/07/16 at 16:30 Morphine Sulfate 2 mg PRN Q2HR PRN IV PAIN Last administered on 12/08/16 05:28 ; Start 12/07/16 at 16:30 Zolpidem Tartrate (Ambien) 5 mg PRN QHS PRN PO INSOMNIA Last administered on 01:06; Start 12/07/16 at 16:30; Stop 12/08/16 at 10:03; Status DC Methocarbamol (Robaxin) 500 mg QID PO Last administered on 12/07/16 21:19; Start 12/07/16 at 17:00; Stop 12/08/16 at 10:03; Status DC Oxycodone/ Acetaminophen (Percocet 5/325) 1 tab PRN Q4HRS PRN PO SEVERE PAIN; Start 12/07/16 at 16:30 Tramadol HCl (Ultram) 50 mg PRN Q6HRS PRN PO MODERATE PAIN Last administered on 12/07/16 17:11; Start 12/07/16 at 16:30 Nicotine (Nicoderm Cq 21mg) 1 patch PRN DAILY PRN TD SMOKING CESSATION; Start 12/07/16 at 16:30 Info (Do NOT chart on this placeholder) 1 each 1X ONCE MC ; Start 12/07/16 at 22:45; Stop 12/07/16 at 22:46; Status UNV Pneumococcal Polyvalent Vaccine (Do NOT chart on this placeholder) 1 each 1X ONCE MC ; Start 12/07/16 at 22:45; Stop 12/07/16 at 22:46; Status UNV Influenza Virus Vaccine Quadrival (Fluarix Quad [id number] Syringe) 0.5 ml ONCE ONCE VAX IM ; Start 12/08/16 at 09:00; Stop 12/08/16 at 09:01; Status DC Pneumococcal Polyvalent Vaccine (Pneumovax 23) 0.5 ml ONCE ONCE VAX IM ; Start 12/08/16 at 09:00; Stop 12/08/16 at 09:01; Status DC Labetalol HCl (Normodyne) 10 mg 1X ONCE IVP Last administered on 12/08/16 08: 56; Start 12/08/16 at 08:30; Stop 12/08/16 at 08:35; Status DC Alprazolam (Xanax) 0.5 mg 1X ONCE PO Last administered on 12/08/16 08:40; Start 12/08/16 at 08:45; Stop 12/08/16 at 08:46; Status DC Aspirin (Children'S Aspirin) 324 mg 1X ONCE PO Last administered on 12/08/16 13:44; Start 12/08/16 at 09:30; Stop 12/08/16 at 09:31; Status DC Aspirin (Jada Aspirin) 325 mg DAILYWBKFT PO ; Start 12/09/16 at 08:00; Stop at 08:00; Status DC Heparin Sodium (Porcine) 4000 unit 4,000 unit 1X ONCE IV ; Start 12/08/16 at 09 :30; Stop 12/08/16 at 14:21; Status DC Midazolam HCl 100 ml @ As Directed STK-MED ONCE IV ; Start 12/08/16 at 09:52; Stop 12/08/16 at 09:53; Status DC Propofol (Diprivan) 100 ml @ 0 mls/hr CONT PRN IV SEE I/O RECORD Last administered on 12/08/16 23:49; Start 12/08/16 at 10:00 Famotidine (Pepcid) 20 mg QHS IVP Last administered on 12/08/16 20:45; Start 12/08/16 at 21:00 Heparin Sodium (Porcine) 5000 unit 5,000 unit Q8HRS SQ ; Start 12/08/16 at 14:00 ; Stop 12/08/16 at 14:00; Status DC Norepinephrine Bitartrate 8 mg/ Sodium Chloride 258 ml @ 1.93 mls/hr CONT PRN IV SEE I/O RECORD; Start 12/08/16 at 10:15; Status Cancel Dopamine HCl/ Dextrose 250 ml @ As Directed STK-MED ONCE IV ; Start 12/08/16 at 10:07; Stop 12/08/16 at 10:08; Status DC Norepinephrine Bitartrate 8 mg/ Sodium Chloride 258 ml @ 0 mls/hr CONT PRN IV SEE I/O RECORD Last administered on 12/09/16 03:04; Start 12/08/16 at 10:15 Dopamine HCl/ Dextrose 250 ml @ 10.084 mls/ hr CONT PRN IV SEE I/O RECORD Last administered on 12/08/16 10:00; Start 12/08/16 at 10:15 Sodium Bicarbonate/ Sodium Chloride (Iv Sodium Chloride 0.45%) 1,050 ml @ 200 mls/hr Q5H15M IV Last administered on 12/09/16 05:11; Start 12/08/16 at 10:30 Phenylephrine HCl 1 mg STK-MED ONCE IV ; Start 12/08/16 at 10:25; Stop 12/08/16 at 10:26; Status DC Aspirin 300 mg 300 mg 1X ONCE AK ; Start 12/08/16 at 10:45; Stop 12/08/16 at 10 :46; Status DC Sodium Chloride 1,000 ml @ 1,000 mls/hr 1X ONCE IV Last administered on 10:00; Start 12/08/16 at 11:45; Stop 12/08/16 at 12:44; Status DC Sodium Chloride (Iv Sodium Chloride 0.9% 1000ml Bag) 1,000 ml @ 1,000 mls/hr 1X ONCE IV Last administered on 12/08/16 10:00; Start 12/08/16 at 11:45; Stop 12/08/16 at 12:44; Status DC Albuterol/ Ipratropium (Duoneb) 3 ml RTQID NEB Last administered on 12/08/16 19:44; Start 12/08/16 at 12:30; Stop 12/09/16 at 05:17; Status DC Budesonide 0.5 mg 0.5 mg RTBID NEB Last administered on 12/08/16 19:44; Start 12/08/16 at 12:30 Sodium Chloride 1,000 ml @ 1,000 mls/hr 1X ONCE IV Last administered on 11:00; Start 12/08/16 at 12:15; Stop 12/08/16 at 13:14; Status DC Sodium Chloride 1,000 ml @ 1,000 mls/hr 1X ONCE IV Last administered on 11:00; Start 12/08/16 at 12:15; Stop 12/08/16 at 13:14; Status DC Heparin Sodium/ Dextrose 500 ml @ 0 mls/hr CONT PRN IV SEE I/O RECORD Last administered on 12/08/16 13:43; Start 12/08/16 at 12:45 Heparin Sodium (Porcine) 1,350 unit PRN Q6HRS PRN IV FOR UFH LEVEL LESS THAN 0.2 Last administered on 12/09/16 05:47; Start 12/08/16 at 12:45 Etomidate (Amidate) 20 mg STK-MED ONCE IV ; Start 12/08/16 at 13:00; Stop at 13:01; Status DC Succinylcholine Chloride 200 mg 200 mg STK-MED ONCE .ROUTE ; Start 12/08/16 at 13:00; Stop 12/08/16 at 13:01; Status DC Piperacillin Sod/ Tazobactam Sod 3.375 gm/Sodium Chloride 50 ml @ 100 mls/hr Q6HRS IV ; Start 12/08/16 at 18:00; Stop 12/08/16 at 18:00; Status DC Vancomycin HCl 1 gm/Sodium Chloride 250 ml @ 250 mls/hr 1X ONCE IV Last administered on 12/08/16 14:21; Start 12/08/16 at 14:00; Stop 12/08/16 at 14:59 ; Status DC Piperacillin Sod/ Tazobactam Sod 2.25 gm/Sodium Chloride 50 ml @ 100 mls/hr Q6HRS IV Last administered on 12/09/16 06:17; Start 12/08/16 at 14:00 Midazolam HCl 100 ml @ 0 mls/hr CONT PRN IV SEE I/O RECORD Last administered on 12/09/16 06:38; Start 12/08/16 at 10:30 Fentanyl Citrate (Fentanyl 600 Mcg/30 ml [employer]) 30 ml @ 0 mls/hr CONT PRN IV PROTOCOL; Start 12/09/16 at 05:15 Fentanyl Citrate (Fentanyl 2ml Vial) 25 mcg PRN Q1HR PRN IV COMM; Start at 05:15 Fentanyl Citrate (Fentanyl 2ml Vial) 50 mcg PRN Q1HR PRN IV COMM; Start at 05:15 Ipratropium [place] (Atrovent) 0.5 mg RTQID NEB ; Start 12/09/16 at 08:00 Active Scripts Active Ultram (Tramadol Hcl) 50 Mg Tablet 50 Mg PO Q6H PRN Robaxin (Methocarbamol) 500 Mg Tablet 500 Mg PO QID Reported Percocet 5-325 Mg Tablet (Oxycodone/Acetaminophen) 1 Each Tablet 1-2 Tab PO Q4HRS Vitals/I & O Vital Sign - Last 24 Hours 12/08/16 12/08/16 12/08/16 12/08/16 07:25 08:18 08:30 08:56 Temp 96.5 96.5 Pulse 118 129 128 Resp 20 24 B/P 137/77 171/122 186/127 Pulse Ox 100 95 91 O2 Delivery Room Air Nasal Cannula Nasal Cannula O2 Flow Rate 4.0 4.0 12/08/16 12/08/16 12/08/16 12/08/16 09:55 10:00 10:00 10:15 Temp 98.4 98.4 Pulse 78 86 Resp 16 20 B/P 34/23 O2 Delivery Ventilator Ventilator Mechanical Ventilator Ventilator 12/08/16 12/08/16 12/08/16 12/08/16 10:30 11:00 11:00 11:15 Pulse 94 92 94 Resp 20 20 20 B/P 99/66 96/62 80/60 O2 Delivery Ventilator Ventilator Ventilator 12/08/16 12/08/16 12/08/16 12/08/16 11:30 12:00 12:15 12:16 Temp 98.0 98.0 Pulse 98 100 102 Resp 20 20 26 26 B/P 111/56 142/72 147/77 116/84 O2 Delivery Ventilator Ventilator Ventilator Ventilator 12/08/16 12/08/16 12/08/16 12/08/16 12:30 12:31 13:00 13:01 Pulse 102 98 Resp 28 28 26 26 B/P 112/66 128/90 132/90 136/87 O2 Delivery Ventilator Ventilator Ventilator Ventilator 12/08/16 12/08/16 12/08/16 12/08/16 13:21 14:00 14:01 15:00 Pulse 100 100 Resp 26 26 28 B/P 141/81 124/86 130/81 O2 Delivery Ventilator Ventilator Ventilator Ventilator 12/08/16 12/08/16 12/08/16 12/08/16 15:01 15:20 16:00 17:45 Resp 28 B/P 104/75 Pulse Ox 98 96 O2 Delivery Ventilator Ventilator Mechanical Ventilator Ventilator 12/08/16 12/08/16 12/08/16 12/08/16 19:00 19:45 19:58 20:00 Temp 99.9 99.9 Pulse 115 119 Resp 28 32 B/P 84/37 89/58 Pulse Ox 99 100 96 O2 Delivery Ventilator Ventilator Ventilator 12/08/16 12/08/16 12/08/16 12/08/16 20:00 20:36 21:00 21:00 Pulse 118 120 124 Resp 30 B/P 110/68 101/68 Pulse Ox 97 O2 Delivery Mechanical Ventilator Ventilator 12/08/16 12/08/16 12/08/16 12/08/16 22:00 22:00 22:11 23:00 Pulse 124 123 126 B/P 97/63 106/70 Pulse Ox 97 98 O2 Delivery Ventilator Ventilator 12/08/16 12/09/16 12/09/16 12/09/16 23:00 00:00 00:00 00:00 Temp 102.8 102.8 Pulse 126 126 130 Resp 33 28 B/P 92/66 Pulse Ox 99 100 O2 Delivery Ventilator Mechanical Ventilator 12/09/16 12/09/16 12/09/16 12/09/16 00:05 01:00 01:00 01:42 Pulse 128 128 Resp 34 B/P 88/63 Pulse Ox 98 99 100 O2 Delivery Ventilator Ventilator Ventilator 12/09/16 12/09/16 12/09/16 12/09/16 02:00 02:00 03:00 03:00 Temp 100.0 100.0 Pulse 126 128 123 122 Resp 33 30 B/P 83/61 92/64 Pulse Ox 100 100 O2 Delivery Ventilator Ventilator 12/09/16 12/09/16 12/09/16 12/09/16 03:45 04:00 04:00 04:00 Temp 98.0 98.0 Pulse 137 138 Resp 30 B/P 100/70 Pulse Ox 100 100 O2 Delivery Ventilator Mechanical Ventilator 12/09/16 12/09/16 12/09/16 05:00 05:00 05:00 Pulse 125 125 Resp 29 B/P 97/62 Pulse Ox 100 97 O2 Delivery Ventilator Intake and Output 12/08/16 12/08/16 12/09/16 15:00 23:00 07:00 Intake Total 5000 ml 1330 ml 4869 ml Output Total 300 ml 1045 ml 435 ml Balance 4700 ml 285 ml 4434 ml OSCAR SANTA MD Dec 09, 2016 06:53
[2016-12-09 06:56] LABS: CALCIUM 6.1 mg/dL (8.5-10.1)
[2016-12-09 07:23] LABS: BASO # 0.1 x10^3/uL (0.0-0.2); BASO % 0 % (0-3); EOS % 0 % (0-3); HEMATOCRIT 39.7 % (39.0-53.0); LYMPH # 0.7 x10^3/uL (1.0-4.8); LYMPH % 3 % (24-48); MEAN CORPUSCULAR HEMOGLOBIN 31 pg (25-35); MEAN CORPUSCULAR HGB CONC 33 g/dL (31-37); MEAN CORPUSCULAR VOLUME 93 fL (79-100); MONO % 4 % (0-9); NEUT % 92 % (31-73); PLATELET COUNT 248 x10^3/uL (140-400); RED BLOOD COUNT 4.28 x10^6/uL (4.30-5.70); RED CELL DISTRIBUTION WIDTH 14.7 % (11.5-14.5); WHITE BLOOD COUNT 22.2 x10^3/uL (4.0-11.0)
--- NOTE | 2016-12-09 07:58 | PDOC ---
CARDIOLOGY PROGRESS NOTE SUBJECTIVE: Continues to be critically ill. No significant changes compared to yesterday. Sedated. History not available. Per nursing report he was agitated on vent. BP stable. OBJECTIVE: Vital SIgns: Afeb, HR 120's, BP 97/60, Pox-95% on Vent at 80% FiO2. I & O Intake/Output = +9 liters. Objective: Sedated. Intubated. Tachycardic. Adequate breath sounds bilaterally. Soft abd Cool extremities. Garcia in place with clr urine. Spontaneously moving extremities. CURRENT MEDICATIONS: Levophed gtt Hep gtt Dopamine HCO3 gtt Abx - zosyn. DIAGNOSTIC TESTING: +Cocaine, marijuana in utox WBC 22, Hgb 13, Plt 248, Cr 2.4. ASSESSMENT: 1. Septic shock with multiorgan failure. Presumed etiology of sepsis is PNA 2. 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 Problems: PLAN: 1. Given +9L with EF of 35-40%, will plan for decrease in IVF if ok with renal. 2. Continue supportive care with levophed. Wean dopamine off. 3. Supportive care, critically ill. Ultimately, may consider ischemic testing when he covers from acute issues. 4. Continue heparin gtt for 48 hours. FARIDA WRIGHT MD Dec 09, 2016 07:58
[2016-12-09] MEDS ORDERED: ASPIRIN 325 MG TABLET PO SCH (08:00)
[2016-12-09] MEDS: IPRATROPIUM BROMIDE 0.5 MG/2.5 ML NEBU. NEB SCH ×4 (08:01→19:38)
[2016-12-09 08:17] LABS: HCO3 ABG 16 mmol/L (21-28); PCO2 ABG 34 mmHg (35-46); PH ABG 7.29 (7.35-7.45); PO2 ABG 86 mmHg (75-108); SAT O2 ABG 96 % (92-99)
[2016-12-09 08:19] LABS: FIO2 ABG 80
[2016-12-09] MEDS: SODIUM BICARBONATE VIAL 150 MEQ in IV DEXTROSE 5% 1,000 ML IV SCH ×2 (08:44→20:36)
--- NOTE | 2016-12-09 09:01 | RAD ---
Exam: AP portable chest. History: Respiratory failure. Comparison: 12/08/2016. Findings: Cardiac silhouette appears within normal limits for size. Endotracheal tube tip projects 6 cm above the corey. Esophagogastric tube is present with tip coiled at the fundus of the stomach. No pneumothorax is seen. There may be a small left pleural effusion. There is some interval worsening of bilateral airspace disease. Impression: 1. Interval worsening of bilateral airspace disease.
--- NOTE | 2016-12-09 09:51 | PDOC ---
Infectious Disease Note Vital Sign Vital Signs Vital Signs Date Time Temp Pulse Resp B/P Pulse Ox O2 Delivery O2 Flow Rate FiO2 12/09/16 08:02 100 Ventilator 12/09/16 06:00 126 103/65 12/09/16 05:00 29 12/09/16 04:00 98.0 98.0 12/08/16 08:30 4.0 Physical Exam PHYSICAL EXAM GENERAL: Intubated and sedated HEENT: Pupils small. ETT. OGT LUNGS: Clear. vent. FiO2 80% HEART: S1S2, no gallop, no murmur. 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 Labs Lab Laboratory Tests Test 12/08/16 09:30 12/08/16 11:05 12/08/16 11:30 12/08/16 12:59 D-Dimer (Orin) 2.74ug/mlFEU (0.00-0.50) Sodium Level 134mmol/L (136-145) Potassium Level 5.2mmol/L (3.5-5.1) Chloride Level 99mmol/L (98-107) Carbon Dioxide Level 8mmol/L (21-32) Anion Gap 27 (6-14) Blood Urea Nitrogen 60mg/dL (8-26) Creatinine 3.7mg/dL (0.7-1.3) Estimated GFR (Cockcroft-Gault) 21.2 Glucose Level 128mg/dL (70-99) Calcium Level 7.2mg/dL (8.5-10.1) Magnesium Level 2.3mg/dL (1.8-2.4) Creatine Kinase 2821U/L (39-308) Creatine Kinase MB (Mass) 19.2ng/mL (0.0-3.6) Creatine Kinase MB Relative Index 0.7% (0-4) Troponin I Quantitative 4.144ng/mL (0.000-0.055) O2 Saturation 95% (92-99) Arterial Blood pH 7.02 (7.35-7.45) Arterial Blood pCO2 at Patient Temp 43mmHg (35-46) Arterial Blood pO2 at Patient Temp 109mmHg (75-108) Arterial Blood HCO3 11mmol/L (21-28) Arterial Blood Base Excess -19mmol/L (-3-3) FiO2 100 Lactic Acid Level 3.6mmol/L (0.4-2.0) Body Fluid Culture (LAB) (.) Urine Opiates Screen Pos (NEG) Urine Methadone Screen Neg (NEG) Urine Barbiturates Neg (NEG) Urine Phencyclidine Screen Neg (NEG) Urine Amphetamine/Methamphetamine Neg (NEG) Urine Benzodiazepines Screen Pos (NEG) Urine Cocaine Screen Pos (NEG) Urine Cannabinoids Screen Pos (NEG) Urine Ethyl Alcohol Neg (NEG) Urine Legionella Antigen Negative (Negative) Streptococcus pneumoniae Antigen Negative (Negative) Organism Identification (LAB) (.) NEFTALI Specimen Source Urine (.) Test 12/08/16 14:49 12/08/16 14:53 12/08/16 15:25 12/08/16 16:00 Glucose (Fingerstick) 175mg/dL (70-99) Troponin I Quantitative 3.064ng/mL (0.000-0.055) O2 Saturation 95% (92-99) Arterial Blood pH 7.12 (7.35-7.45) Arterial Blood pCO2 at Patient Temp 35mmHg (35-46) Arterial Blood pO2 at Patient Temp 93mmHg (75-108) Arterial Blood HCO3 11mmol/L (21-28) Arterial Blood Base Excess -17mmol/L (-3-3) FiO2 100 Lactic Acid Level 2.1mmol/L (0.4-2.0) Test 12/08/16 16:19 12/08/16 20:15 12/09/16 03:45 12/09/16 05:40 Nasal Screen MRSA (PCR) Negative (Negative) Heparin Anti-Xa Act, Unfractionated < 0.10IU/mL (0.30-0.70) < 0.10IU/mL (0.30-0.70) Lactic Acid Level 1.5mmol/L (0.4-2.0) White Blood Count 22.2x10^3/uL (4.0-11.0) Red Blood Count 4.28x10^6/uL (4.30-5.70) Hemoglobin 13.0g/dL (13.0-17.5) Hematocrit 39.7% (39.0-53.0) Mean Corpuscular Volume 93fL (79-100) Mean Corpuscular Hemoglobin 31pg (25-35) Mean Corpuscular Hemoglobin Concent 33g/dL (31-37) Red Cell Distribution Width 14.7% (11.5-14.5) Platelet Count 248x10^3/uL (140-400) Neutrophils (%) (Auto) 92% (31-73) Lymphocytes (%) (Auto) 3% (24-48) Monocytes (%) (Auto) 4% (0-9) Eosinophils (%) (Auto) 0% (0-3) Basophils (%) (Auto) 0% (0-3) Neutrophils # (Auto) 20.5x10^3uL (1.8-7.7) Lymphocytes # (Auto) 0.7x10^3/uL (1.0-4.8) Monocytes # (Auto) 1.0x10^3/uL (0.0-1.1) Eosinophils # (Auto) 0.0x10^3/uL (0.0-0.7) Basophils # (Auto) 0.1x10^3/uL (0.0-0.2) Sodium Level 133mmol/L (136-145) Potassium Level 4.3mmol/L (3.5-5.1) Chloride Level 104mmol/L (98-107) Carbon Dioxide Level 16mmol/L (21-32) Anion Gap 13 (6-14) Blood Urea Nitrogen 43mg/dL (8-26) Creatinine 2.4mg/dL (0.7-1.3) Estimated GFR (Cockcroft-Gault) 35.0 Glucose Level 135mg/dL (70-99) Calcium Level 6.1mg/dL (8.5-10.1) Test 12/09/16 08:00 O2 Saturation 96% (92-99) Arterial Blood pH 7.29 (7.35-7.45) Arterial Blood pCO2 at Patient Temp 34mmHg (35-46) Arterial Blood pO2 at Patient Temp 86mmHg (75-108) Arterial Blood HCO3 16mmol/L (21-28) Arterial Blood Base Excess -9mmol/L (-3-3) FiO2 80 Micro Sputum GRAM STAIN Final WBCS MANY ORGANISMS NONE SEEN BLOOD CULTURE Preliminary NO GROWTH AFTER 1 DAY Objective Assessment Sepsis with lactic acidosis. POA Fever Leukocytosis Pneumonia -Influenza screen neg -Strep antigen & legionella Ag neg Acute encephalopathy Acute respiratory failure s/p intubation s/p PEA cardiopulmonary arrest -TTE EF 30-35%. -No veg noted Hypotension on vasopressor support x 2 ASHLEY Polysubstance abuse Diarrhea. c. diff neg Plan Plan of Care Continue Zosyn One time dose vanc 12/08 Rocephin and azithromycin 12/07 Monitor WBC, cr and temp f/u cultures Supportive care D/w common law . Was ill for a week with some fever. Took a dose of she believes was Amoxicillin prior to admit Add Doxy for atypical coverage Thank you [id number] 35 min CC time Attending Co-Sign Attending Co-Sign The patient was seen and interviewed as well as examined at the bedside. The chart was reviewed. The case was discussed. Agree with the plan of care. SHAUNNA SERRANO APRN Dec 09, 2016 09:11 LILIANA SEVERINO MD Dec 09, 2016 12:27
--- NOTE | 2016-12-09 11:12 | RAD ---
Exam: AP portable chest. History: PICC line placement. Comparison: Chest radiograph performed 3 minutes earlier. Findings: Endotracheal tube tip projects 6 cm above the corey. Esophagogastric tube is present with tip projecting at the proximal body of the stomach. Cardiac silhouette appears within normal limits for size. No pneumothorax or pleural effusion is seen. Right-sided PICC line is unchanged with tip projecting at superior vena cava, in satisfactory location. Bilateral airspace disease is unchanged. Impression: 1. Right-sided PICC line tip projects at the superior vena cava. 2. No interval change in appearance of the chest.
--- NOTE | 2016-12-09 11:13 | RAD ---
Exam: AP portable chest. History: PICC line placement. Comparison: Chest radiograph performed 5 hours earlier. Findings: Endotracheal tube tip projects 6 cm above the corey. Esophagogastric tube is present with tip projecting at the proximal body of the stomach. Cardiac silhouette appears within normal limits for size. No pneumothorax or pleural effusion is seen. Bilateral airspace disease is unchanged. There is interval placement of right-sided PICC line with tip projecting at the mid superior vena cava. Impression: 1. Right-sided PICC line tip projects at the mid superior vena cava. No other significant interval change in appearance of the chest.
[2016-12-09] MEDS: PIPERACILLIN/TAZOBACTAM 3.375 GM in IV NORMAL SALINE 50ML 50 ML IV SCH ×3 (12:00→23:35)
[2016-12-09] MEDS: NOREPINEPHRINE VIAL 16 MG in IV NORMAL SALINE 250ML 250 ML IV PRN ×2 (12:36→20:36)
[2016-12-09] MEDS: HEPARIN 25,000UTS/500ML PREMIX 500 ML IV PRN (13:11)
[2016-12-09] MEDS: ASPIRIN 81 MG TAB.CHEW PO SCH (13:13)
[2016-12-09] MEDS: CHLORHEXIDINE 0.12% 15 ML MOUTHWASH. MM SCH ×2 (13:13→20:37)
[2016-12-09] MEDS: DOXYCYCLINE HYCLATE 100 MG in IV DEXTROSE 5% 100 ML IV SCH ×2 (14:04→20:39)
[2016-12-09] MEDS: BUDESONIDE 0.5 MG/2 ML NEBU NEB SCH (19:39)
[2016-12-09] MEDS: FAMOTIDINE 20 MG/2 ML VIAL IVP SCH (20:38)
--- NOTE | 2016-12-09 21:39 | CONS ---
DATE OF CONSULTATION: 12/08/2016 REQUESTING PHYSICIAN: Dr. Guillen REASON FOR CONSULTATION: Community-acquired pneumonia. HISTORY OF PRESENT ILLNESS: This patient is a 51-year-old -[place] male who is currently sedated and intubated and unable to provide history of present illness, past medical history or review of systems. According to the medical record, he presented to the ER not feeling well for the past week. He had been complaining of shortness of air, cough, nausea, vomiting, diarrhea and subjective fever. Workup revealed an elevated white blood cell count of 19,400 with segs 71%, bands 20%. His lactic acid was 4.2. He was in acute renal failure with a creatinine of 6.1, BUN 73 and potassium 5.0. His oxygen saturation on room air was 91%. A chest x-ray showed bilateral interstitial density with emphysematous changes. His influenza screen as well as strep antigen were negative. He was dosed initially with ceftriaxone and azithromycin for community-acquired pneumonia. Later he complained of worsening difficulty breathing and became unresponsive. He went into PEA cardiac arrest and was resuscitated. He is hypotensive requiring vasopressor support. He developed a fever of 102.8. Repeat chest x-ray showing interval worsening of bilateral airspace disease. No organisms seen on sputum Gram stain. Blood cultures are negative so far. Antibiotics have been changed. He received one-time dose of vancomycin and is now on Zosyn. PAST MEDICAL HISTORY: Polysubstance abuse, chronic back pain. PAST SURGICAL HISTORY: Left inguinal hernia repair. FAMILY HISTORY: Positive for cardiovascular disease and cerebrovascular accident. SOCIAL HISTORY: The patient is a smoker. History of marijuana and cocaine use. ALLERGIES: METOCLOPRAMIDE. MEDICATIONS: Vancomycin x 1 dose on the . Zosyn. Other medications are available and have been reviewed on the JAN. PHYSICAL EXAMINATION: GENERAL: A thin -[place] male, intubated and sedated. VITAL SIGNS: Temperature is 98.0, T-max 102.8, blood pressure 103/65, heart rate 126, respiratory rate 29, pulse oximetry 100% on FiO2 80%. HEENT: Pupils are small. He has an ETT and OGT in place. NECK: Supple. LUNGS: Clear to auscultation. HEART: Normal S1 and S2. Tachycardic. ABDOMEN: Nondistended. Bowel sounds are present, soft. No grimace or guarding to palpation. EXTREMITIES: Cool. No edema or cyanosis. SKIN: Without rash. NEUROLOGIC: Sedated though moving his head. LINES: RUE art line, left EJ, and peripheral IVs. LABORATORY DATA: Recent WBC 22.2, hemoglobin 13.0, platelet count 248,000. Sodium 133, potassium 4.3, creatinine 2.4, BUN 43. Lactic acid 1.5. Troponin 3.064, glucose 135. MRSA screen negative. C. diff PCR negative. Influenza screen negative. Urine legionella and strep pneumoniae antigen negative. Urinalysis unremarkable for infection. Urine toxicology positive for opiates, benzodiazepine, cocaine and cannabinoids. Chest x-ray per HPI. Sputum culture pending. IMPRESSION: 1. Sepsis with lactic acidosis. 2. Fever and leukocytosis. 3. Pneumonia. 4. Acute encephalopathy. 5. Acute respiratory failure. 6. Status post PEA cardiopulmonary arrest. 7. Acute kidney injury. 8. Polysubstance abuse. 9. Diarrhea. PLAN: Continue the Zosyn. Monitor WBC count, creatinine and temperature. We will follow up on cultures. Supportive care. Thank you, Dr. Guillen, for asking us to participate in this patient's care. Should you have further questions or concerns, please call. LILIANA SEVERINO MD DR: POLA/noé JOB#: [id number] / [id number] MELONY
[2016-12-09] MEDS: FENTANYL STANDARD PCA 30 ML IV PRN (23:23)
[2016-12-10] VITALS (27 sets, daily range): BP systolic 90–122; BP diastolic 50–67
[2016-12-10] MEDS: MIDAZOLAM PREMIX 100 ML IV PRN ×2 (04:20→20:25)
[2016-12-10 05:46] LABS: BASO # 0.1 x10^3/uL (0.0-0.2); BASO % 0 % (0-3); EOS % 0 % (0-3); HEMATOCRIT 33.5 % (39.0-53.0); LYMPH # 0.8 x10^3/uL (1.0-4.8); LYMPH % 4 % (24-48); MEAN CORPUSCULAR HEMOGLOBIN 30 pg (25-35); MEAN CORPUSCULAR HGB CONC 33 g/dL (31-37); MEAN CORPUSCULAR VOLUME 91 fL (79-100); MONO % 7 % (0-9); NEUT % 89 % (31-73); PLATELET COUNT 270 x10^3/uL (140-400); RED BLOOD COUNT 3.69 x10^6/uL (4.30-5.70); RED CELL DISTRIBUTION WIDTH 14.3 % (11.5-14.5); WHITE BLOOD COUNT 19.8 x10^3/uL (4.0-11.0)
[2016-12-10] MEDS: PIPERACILLIN/TAZOBACTAM 3.375 GM in IV NORMAL SALINE 50ML 50 ML IV SCH ×3 (05:59→18:05)
--- NOTE | 2016-12-10 06:35 | PDOC ---
PULMONARY PROGRESS NOTES Subjective on vent on sedation, off levo and dopamine, off sedation agitated Vitals Vital Signs Date Time Temp Pulse Resp B/P Pulse Ox O2 Delivery O2 Flow Rate FiO2 12/10/16 06:00 102 22 102/52 95 Ventilator 12/10/16 04:00 99.0 99.0 12/09/16 16:00 4.0 Comments ros as mentioned as above discussed w rn, off sedation agitated. HEENT: Other (nc at perrl, orally intubated) Lungs: Crackles Cardiovascular: S1, S2 Abdomen: Soft, Non-tender, Other (no mass) Extremities: No Edema Skin: Warm Labs Laboratory Tests Test 12/08/16 09:30 12/08/16 11:05 12/08/16 11:30 12/08/16 12:59 D-Dimer (Orin) 2.74ug/mlFEU (0.00-0.50) Sodium Level 134mmol/L (136-145) Potassium Level 5.2mmol/L (3.5-5.1) Chloride Level 99mmol/L (98-107) Carbon Dioxide Level 8mmol/L (21-32) Anion Gap 27 (6-14) Blood Urea Nitrogen 60mg/dL (8-26) Creatinine 3.7mg/dL (0.7-1.3) Estimated GFR (Cockcroft-Gault) 21.2 Glucose Level 128mg/dL (70-99) Calcium Level 7.2mg/dL (8.5-10.1) Magnesium Level 2.3mg/dL (1.8-2.4) Creatine Kinase 2821U/L (39-308) Creatine Kinase MB (Mass) 19.2ng/mL (0.0-3.6) Creatine Kinase MB Relative Index 0.7% (0-4) Troponin I Quantitative 4.144ng/mL (0.000-0.055) O2 Saturation 95% (92-99) Arterial Blood pH 7.02 (7.35-7.45) Arterial Blood pCO2 at Patient Temp 43mmHg (35-46) Arterial Blood pO2 at Patient Temp 109mmHg (75-108) Arterial Blood HCO3 11mmol/L (21-28) Arterial Blood Base Excess -19mmol/L (-3-3) FiO2 100 Lactic Acid Level 3.6mmol/L (0.4-2.0) Body Fluid Culture (LAB) (.) Urine Opiates Screen Pos (NEG) Urine Methadone Screen Neg (NEG) Urine Barbiturates Neg (NEG) Urine Phencyclidine Screen Neg (NEG) Urine Amphetamine/Methamphetamine Neg (NEG) Urine Benzodiazepines Screen Pos (NEG) Urine Cocaine Screen Pos (NEG) Urine Cannabinoids Screen Pos (NEG) Urine Ethyl Alcohol Neg (NEG) Urine Legionella Antigen Negative (Negative) Streptococcus pneumoniae Antigen Negative (Negative) Organism Identification (LAB) (.) NEFTALI Specimen Source Urine (.) Test 12/08/16 14:49 12/08/16 14:53 12/08/16 15:25 12/08/16 16:00 Glucose (Fingerstick) 175mg/dL (70-99) Troponin I Quantitative 3.064ng/mL (0.000-0.055) O2 Saturation 95% (92-99) Arterial Blood pH 7.12 (7.35-7.45) Arterial Blood pCO2 at Patient Temp 35mmHg (35-46) Arterial Blood pO2 at Patient Temp 93mmHg (75-108) Arterial Blood HCO3 11mmol/L (21-28) Arterial Blood Base Excess -17mmol/L (-3-3) FiO2 100 Lactic Acid Level 2.1mmol/L (0.4-2.0) Test 12/08/16 16:19 12/08/16 20:15 12/09/16 03:45 12/09/16 05:40 Nasal Screen MRSA (PCR) Negative (Negative) Heparin Anti-Xa Act, Unfractionated < 0.10IU/mL (0.30-0.70) < 0.10IU/mL (0.30-0.70) Lactic Acid Level 1.5mmol/L (0.4-2.0) White Blood Count 22.2x10^3/uL (4.0-11.0) Red Blood Count 4.28x10^6/uL (4.30-5.70) Hemoglobin 13.0g/dL (13.0-17.5) Hematocrit 39.7% (39.0-53.0) Mean Corpuscular Volume 93fL (79-100) Mean Corpuscular Hemoglobin 31pg (25-35) Mean Corpuscular Hemoglobin Concent 33g/dL (31-37) Red Cell Distribution Width 14.7% (11.5-14.5) Platelet Count 248x10^3/uL (140-400) Neutrophils (%) (Auto) 92% (31-73) Lymphocytes (%) (Auto) 3% (24-48) Monocytes (%) (Auto) 4% (0-9) Eosinophils (%) (Auto) 0% (0-3) Basophils (%) (Auto) 0% (0-3) Neutrophils # (Auto) 20.5x10^3uL (1.8-7.7) Lymphocytes # (Auto) 0.7x10^3/uL (1.0-4.8) Monocytes # (Auto) 1.0x10^3/uL (0.0-1.1) Eosinophils # (Auto) 0.0x10^3/uL (0.0-0.7) Basophils # (Auto) 0.1x10^3/uL (0.0-0.2) Sodium Level 133mmol/L (136-145) Potassium Level 4.3mmol/L (3.5-5.1) Chloride Level 104mmol/L (98-107) Carbon Dioxide Level 16mmol/L (21-32) Anion Gap 13 (6-14) Blood Urea Nitrogen 43mg/dL (8-26) Creatinine 2.4mg/dL (0.7-1.3) Estimated GFR (Cockcroft-Gault) 35.0 Glucose Level 135mg/dL (70-99) Calcium Level 6.1mg/dL (8.5-10.1) Test 12/09/16 08:00 12/09/16 08:53 12/09/16 11:30 12/09/16 17:35 O2 Saturation 96% (92-99) Arterial Blood pH 7.29 (7.35-7.45) Arterial Blood pCO2 at Patient Temp 34mmHg (35-46) Arterial Blood pO2 at Patient Temp 86mmHg (75-108) Arterial Blood HCO3 16mmol/L (21-28) Arterial Blood Base Excess -9mmol/L (-3-3) FiO2 80 Glucose (Fingerstick) 127mg/dL (70-99) 174mg/dL (70-99) Heparin Anti-Xa Act, Unfractionated 0.60IU/mL (0.30-0.70) Test 12/09/16 17:40 12/10/16 00:20 12/10/16 05:30 Heparin Anti-Xa Act, Unfractionated 0.65IU/mL (0.30-0.70) 0.74IU/mL (0.30-0.70) White Blood Count 19.8x10^3/uL (4.0-11.0) Red Blood Count 3.69x10^6/uL (4.30-5.70) Hemoglobin 11.0g/dL (13.0-17.5) Hematocrit 33.5% (39.0-53.0) Mean Corpuscular Volume 91fL (79-100) Mean Corpuscular Hemoglobin 30pg (25-35) Mean Corpuscular Hemoglobin Concent 33g/dL (31-37) Red Cell Distribution Width 14.3% (11.5-14.5) Platelet Count 270x10^3/uL (140-400) Neutrophils (%) (Auto) 89% (31-73) Lymphocytes (%) (Auto) 4% (24-48) Monocytes (%) (Auto) 7% (0-9) Eosinophils (%) (Auto) 0% (0-3) Basophils (%) (Auto) 0% (0-3) Neutrophils # (Auto) 17.6x10^3uL (1.8-7.7) Lymphocytes # (Auto) 0.8x10^3/uL (1.0-4.8) Monocytes # (Auto) 1.3x10^3/uL (0.0-1.1) Eosinophils # (Auto) 0.0x10^3/uL (0.0-0.7) Basophils # (Auto) 0.1x10^3/uL (0.0-0.2) Laboratory Tests Test 12/09/16 08:00 12/09/16 08:53 12/09/16 11:30 12/09/16 17:35 O2 Saturation 96% (92-99) Arterial Blood pH 7.29 (7.35-7.45) Arterial Blood pCO2 at Patient Temp 34mmHg (35-46) Arterial Blood pO2 at Patient Temp 86mmHg (75-108) Arterial Blood HCO3 16mmol/L (21-28) Arterial Blood Base Excess -9mmol/L (-3-3) FiO2 80 Glucose (Fingerstick) 127mg/dL (70-99) 174mg/dL (70-99) Heparin Anti-Xa Act, Unfractionated 0.60IU/mL (0.30-0.70) Test 12/09/16 17:40 12/10/16 00:20 12/10/16 05:30 Heparin Anti-Xa Act, Unfractionated 0.65IU/mL (0.30-0.70) 0.74IU/mL (0.30-0.70) White Blood Count 19.8x10^3/uL (4.0-11.0) Red Blood Count 3.69x10^6/uL (4.30-5.70) Hemoglobin 11.0g/dL (13.0-17.5) Hematocrit 33.5% (39.0-53.0) Mean Corpuscular Volume 91fL (79-100) Mean Corpuscular Hemoglobin 30pg (25-35) Mean Corpuscular Hemoglobin Concent 33g/dL (31-37) Red Cell Distribution Width 14.3% (11.5-14.5) Platelet Count 270x10^3/uL (140-400) Neutrophils (%) (Auto) 89% (31-73) Lymphocytes (%) (Auto) 4% (24-48) Monocytes (%) (Auto) 7% (0-9) Eosinophils (%) (Auto) 0% (0-3) Basophils (%) (Auto) 0% (0-3) Neutrophils # (Auto) 17.6x10^3uL (1.8-7.7) Lymphocytes # (Auto) 0.8x10^3/uL (1.0-4.8) Monocytes # (Auto) 1.3x10^3/uL (0.0-1.1) Eosinophils # (Auto) 0.0x10^3/uL (0.0-0.7) Basophils # (Auto) 0.1x10^3/uL (0.0-0.2) Medications Active Scripts Medications Dose Route/Sig Days Date Category Percocet 5-325 Mg Tablet (Oxycodone/Acetaminophen) 1 Each Tablet 1-2 Tab PO Q4HRS 05/25/16 Reported Ultram (Tramadol Hcl) 50 Mg Tablet 50 Mg PO Q6H PRN 05/22/16 Rx Robaxin (Methocarbamol) 500 Mg Tablet 500 Mg PO QID 05/22/16 Rx Comments cxr b lat infilt Impression . IMPRESSION: 1. Acute hypoxemic respiratory failure, multifactorial in etiology. 2. Abnormal chest x-ray. 3. Pulmonary infiltrate, could be secondary to aspiration pneumonia versus pneumonia. 4. Septic shock. 5. Acute kidney injury. 6. Smoker. 7. History of drug abuse. 8. Status post cardiopulmonary arrest. 9. Hypotension. Plan . PLAN AND RECOMMENDATIONS: 1. Titrate FiO2 to keep O2 saturation 94%. 2. Continue ventilator support. Ventilatory setting was reviewed. review abg if ok, will do sbt 3. Bronchodilator, atrovent only, was tachy 4. fu Sputum culture, blood culture, urine culture. 5. ID consulted. 6. Continue abx 7. Pepcid and heparin for stress ulcer and DVT prophylaxis. 8. Urine for legionella and strep pneumonia antigen, neg. 9. Urine drug screen, pos. 10. ABG on portable chest x-ray in am. 11. Monitor respiratory status very closely. 12. elevate hob 13. Continue pressors to keep his mean arterial pressure 65. 14. Cardiology and nephrology are on the case. 15. Continue IV fluid. monitor cr The findings and recommendations were discussed with RN and RT. MIKAL KULKARNI MD Dec 10, 2016 06:35
[2016-12-10] MEDS: CHLORHEXIDINE 0.12% 15 ML MOUTHWASH. MM SCH ×2 (08:13→20:26)
[2016-12-10] MEDS: ASPIRIN 81 MG TAB.CHEW PO SCH (08:13)
[2016-12-10] MEDS: DOXYCYCLINE HYCLATE 100 MG in IV DEXTROSE 5% 100 ML IV SCH ×2 (08:13→20:28)
[2016-12-10] MEDS: FENTANYL STANDARD PCA 30 ML IV PRN ×2 (08:19→20:28)
[2016-12-10] MEDS: BUDESONIDE 0.5 MG/2 ML NEBU NEB SCH ×2 (08:19→21:27)
[2016-12-10] MEDS: IPRATROPIUM BROMIDE 0.5 MG/2.5 ML NEBU. NEB SCH ×4 (08:24→21:26)
--- NOTE | 2016-12-10 08:34 | PDOC ---
Infectious Disease Note Subjective Subjective Sedated. Remains intubated/vent. Less O2 demand. FiO2 50% + fevers. Tmax 102.2 but fever better BP stable. Off pressors Tube feedings + diarrhea ROS ROS Unobtainable Vital Sign Vital Signs Vital Signs Date Time Temp Pulse Resp B/P Pulse Ox O2 Delivery O2 Flow Rate FiO2 12/10/16 07:00 101 22 103/53 99 Ventilator 12/10/16 04:00 99.0 99.0 12/09/16 16:00 4.0 Physical Exam PHYSICAL EXAM GENERAL: Intubated and sedated HEENT: Pupils small. ETT. OGT LUNGS: Clear. vent. HEART: S1S2, no gallop, no murmur. ABD: Soft, BS present : Garcia EXT: No edema, no cyanosis, [place] PILOT: Sedated SKIN: No rash RUE art-line and PICC. (12/09). clean Peripheral IV Labs Lab Laboratory Tests Test 12/09/16 08:53 12/09/16 11:30 12/09/16 17:35 12/09/16 17:40 Glucose (Fingerstick) 127mg/dL (70-99) 174mg/dL (70-99) Heparin Anti-Xa Act, Unfractionated 0.60IU/mL (0.30-0.70) 0.65IU/mL (0.30-0.70) Test 12/10/16 00:20 12/10/16 05:30 Heparin Anti-Xa Act, Unfractionated 0.74IU/mL (0.30-0.70) White Blood Count 19.8x10^3/uL (4.0-11.0) Red Blood Count 3.69x10^6/uL (4.30-5.70) Hemoglobin 11.0g/dL (13.0-17.5) Hematocrit 33.5% (39.0-53.0) Mean Corpuscular Volume 91fL (79-100) Mean Corpuscular Hemoglobin 30pg (25-35) Mean Corpuscular Hemoglobin Concent 33g/dL (31-37) Red Cell Distribution Width 14.3% (11.5-14.5) Platelet Count 270x10^3/uL (140-400) Neutrophils (%) (Auto) 89% (31-73) Lymphocytes (%) (Auto) 4% (24-48) Monocytes (%) (Auto) 7% (0-9) Eosinophils (%) (Auto) 0% (0-3) Basophils (%) (Auto) 0% (0-3) Neutrophils # (Auto) 17.6x10^3uL (1.8-7.7) Lymphocytes # (Auto) 0.8x10^3/uL (1.0-4.8) Monocytes # (Auto) 1.3x10^3/uL (0.0-1.1) Eosinophils # (Auto) 0.0x10^3/uL (0.0-0.7) Basophils # (Auto) 0.1x10^3/uL (0.0-0.2) Micro SPUTUM CULT RES 1 Preliminary No growth after 18-24 hours. BLOOD CULTURE Preliminary NO GROWTH AFTER 2 DAY STOOL CULTURE Preliminary No Salmonella or Shigella recovered. No Campylobacter species isolated. Final TEST PERFORMED BY [facility] SHIGA TOXIN Final Negative Objective Assessment Sepsis with lactic acidosis. POA - off Pressors Fever - curve better Leukocytosis - improving Pneumonia -Influenza screen neg -Strep antigen & legionella Ag neg Acute encephalopathy Acute respiratory failure s/p intubation s/p PEA cardiopulmonary arrest -TTE EF 30-35%. -No veg noted Hypotension on vasopressor support x 2. Now off ASHLEY - Renal following Polysubstance abuse Diarrhea. c. diff neg. stool cx neg Plan Plan of Care Continue Zosyn and doxy One time dose vanc 12/08 Rocephin and azithromycin 12/07 Monitor labs/temp Cultures NGTD Supportive care Critically ill Attending Co-Sign Attending Co-Sign The patient was seen and interviewed as well as examined at the bedside. The chart was reviewed. The case was discussed. Agree with the plan of care. SHAUNNA SERRANO APRN Dec 10, 2016 08:33 LILIANA SEVERINO MD Dec 10, 2016 12:59
[2016-12-10 08:38] LABS: HCO3 ABG 24 mmol/L (21-28); PCO2 ABG 40 mmHg (35-46); PO2 ABG 59 mmHg (75-108); SAT O2 ABG 90 % (92-99)
[2016-12-10 08:41] LABS: FIO2 ABG 50
--- NOTE | 2016-12-10 08:49 | RAD ---
Exam: AP portable chest. History: Respiratory failure. Comparison: 12/09/2016. Findings: Cardiac silhouette appears within normal limits for size. Endotracheal tube tip projects 4 cm by the corey. Esophagogastric tube projects at the fundus of the stomach. Right-sided PICC line is unchanged. There is interval worsening of bilateral lower lobe airspace disease and parenchymal density. Pulmonary vascularity is increased in the perihilar infiltrates. Impression: 1. Interval worsening of bilateral parenchymal densities. Findings could represent worsening pulmonary edema versus ARDS versus pneumonia.
[2016-12-10 09:17] LABS: ALBUMIN 1.2 g/dL (3.4-5.0); ALBUMIN/GLOBULIN RATIO 0.3 (1.0-1.7); CREATININE 2.9 mg/dL (0.7-1.3); GFR 28.1; POTASSIUM 3.5 mmol/L (3.5-5.1); TOTAL BILIRUBIN 0.2 mg/dL (0.2-1.0); TOTAL PROTEIN 4.7 g/dL (6.4-8.2)
[2016-12-10] MEDS: SODIUM BICARBONATE VIAL 150 MEQ in IV DEXTROSE 5% 1,000 ML IV SCH (09:34)
--- NOTE | 2016-12-10 09:40 | PDOC ---
PROGRESS NOTES History of Present Illness History of Present Illness no overnight events, worsening CXR. Vitals Vitals Vital Signs Date Time Temp Pulse Resp B/P Pulse Ox O2 Delivery O2 Flow Rate FiO2 12/10/16 08:19 22 12/10/16 08:15 100 Ventilator 12/10/16 07:00 101 103/53 12/10/16 04:00 99.0 99.0 12/09/16 16:00 4.0 Physical Exam General: No acute distress, Other (intubated/sedated ) Heart: Normal S1, Normal S2, Other (tachycardia. ) Lungs: Crackles Abdomen: Normal bowel sounds, Soft, No tenderness Extremities: No edema, Other (DP pulses not palpable ) Skin: No significant lesion Labs LABS Laboratory Tests Test 12/09/16 11:30 12/09/16 17:35 12/09/16 17:40 12/10/16 00:20 Heparin Anti-Xa Act, Unfractionated 0.60IU/mL (0.30-0.70) 0.65IU/mL (0.30-0.70) 0.74IU/mL (0.30-0.70) Glucose (Fingerstick) 174mg/dL (70-99) Test 12/10/16 05:30 12/10/16 08:15 12/10/16 08:30 White Blood Count 19.8x10^3/uL (4.0-11.0) Red Blood Count 3.69x10^6/uL (4.30-5.70) Hemoglobin 11.0g/dL (13.0-17.5) Hematocrit 33.5% (39.0-53.0) Mean Corpuscular Volume 91fL (79-100) Mean Corpuscular Hemoglobin 30pg (25-35) Mean Corpuscular Hemoglobin Concent 33g/dL (31-37) Red Cell Distribution Width 14.3% (11.5-14.5) Platelet Count 270x10^3/uL (140-400) Neutrophils (%) (Auto) 89% (31-73) Lymphocytes (%) (Auto) 4% (24-48) Monocytes (%) (Auto) 7% (0-9) Eosinophils (%) (Auto) 0% (0-3) Basophils (%) (Auto) 0% (0-3) Neutrophils # (Auto) 17.6x10^3uL (1.8-7.7) Lymphocytes # (Auto) 0.8x10^3/uL (1.0-4.8) Monocytes # (Auto) 1.3x10^3/uL (0.0-1.1) Eosinophils # (Auto) 0.0x10^3/uL (0.0-0.7) Basophils # (Auto) 0.1x10^3/uL (0.0-0.2) Heparin Anti-Xa Act, Unfractionated 0.60IU/mL (0.30-0.70) O2 Saturation 90% (92-99) Arterial Blood pH 7.40 (7.35-7.45) Arterial Blood pCO2 at Patient Temp 40mmHg (35-46) Arterial Blood pO2 at Patient Temp 59mmHg (75-108) Arterial Blood HCO3 24mmol/L (21-28) Arterial Blood Base Excess 0mmol/L (-3-3) FiO2 50 Sodium Level 139mmol/L (136-145) Potassium Level 3.5mmol/L (3.5-5.1) Chloride Level 104mmol/L (98-107) Carbon Dioxide Level 25mmol/L (21-32) Anion Gap 10 (6-14) Blood Urea Nitrogen 37mg/dL (8-26) Creatinine 2.9mg/dL (0.7-1.3) Estimated GFR (Cockcroft-Gault) 28.1 BUN/Creatinine Ratio 13 (6-20) Glucose Level 134mg/dL (70-99) Calcium Level 6.0mg/dL (8.5-10.1) Total Bilirubin 0.2mg/dL (0.2-1.0) Aspartate Amino Transf (AST/SGOT) 148U/L (15-37) Alanine Aminotransferase (ALT/SGPT) 52U/L (16-63) Alkaline Phosphatase 28U/L (46-116) Total Protein 4.7g/dL (6.4-8.2) Albumin 1.2g/dL (3.4-5.0) Albumin/Globulin Ratio 0.3 (1.0-1.7) Assessment and Plan Assessmemt and Plan Problems Medical Problems: (1) ARF (acute renal failure) Status: Acute (2) CAP (community acquired pneumonia) Status: Acute Problems: Comment Review of Relevant I have reviewed the following items immanuel (where applicable) has been applied. Labs Laboratory Tests Test 12/08/16 11:05 12/08/16 11:30 12/08/16 12:59 12/08/16 14:49 O2 Saturation 95% (92-99) Arterial Blood pH 7.02 (7.35-7.45) Arterial Blood pCO2 at Patient Temp 43mmHg (35-46) Arterial Blood pO2 at Patient Temp 109mmHg (75-108) Arterial Blood HCO3 11mmol/L (21-28) Arterial Blood Base Excess -19mmol/L (-3-3) FiO2 100 Lactic Acid Level 3.6mmol/L (0.4-2.0) Body Fluid Culture (LAB) (.) Urine Opiates Screen Pos (NEG) Urine Methadone Screen Neg (NEG) Urine Barbiturates Neg (NEG) Urine Phencyclidine Screen Neg (NEG) Urine Amphetamine/Methamphetamine Neg (NEG) Urine Benzodiazepines Screen Pos (NEG) Urine Cocaine Screen Pos (NEG) Urine Cannabinoids Screen Pos (NEG) Urine Ethyl Alcohol Neg (NEG) Urine Legionella Antigen Negative (Negative) Streptococcus pneumoniae Antigen Negative (Negative) Organism Identification (LAB) (.) NEFTALI Specimen Source Urine (.) Glucose (Fingerstick) 175mg/dL (70-99) Test 12/08/16 14:53 12/08/16 15:25 12/08/16 16:00 12/08/16 16:19 Troponin I Quantitative 3.064ng/mL (0.000-0.055) O2 Saturation 95% (92-99) Arterial Blood pH 7.12 (7.35-7.45) Arterial Blood pCO2 at Patient Temp 35mmHg (35-46) Arterial Blood pO2 at Patient Temp 93mmHg (75-108) Arterial Blood HCO3 11mmol/L (21-28) Arterial Blood Base Excess -17mmol/L (-3-3) FiO2 100 Lactic Acid Level 2.1mmol/L (0.4-2.0) Nasal Screen MRSA (PCR) Negative (Negative) Test 12/08/16 20:15 12/09/16 03:45 12/09/16 05:40 12/09/16 08:00 Heparin Anti-Xa Act, Unfractionated < 0.10IU/mL (0.30-0.70) < 0.10IU/mL (0.30-0.70) Lactic Acid Level 1.5mmol/L (0.4-2.0) White Blood Count 22.2x10^3/uL (4.0-11.0) Red Blood Count 4.28x10^6/uL (4.30-5.70) Hemoglobin 13.0g/dL (13.0-17.5) Hematocrit 39.7% (39.0-53.0) Mean Corpuscular Volume 93fL (79-100) Mean Corpuscular Hemoglobin 31pg (25-35) Mean Corpuscular Hemoglobin Concent 33g/dL (31-37) Red Cell Distribution Width 14.7% (11.5-14.5) Platelet Count 248x10^3/uL (140-400) Neutrophils (%) (Auto) 92% (31-73) Lymphocytes (%) (Auto) 3% (24-48) Monocytes (%) (Auto) 4% (0-9) Eosinophils (%) (Auto) 0% (0-3) Basophils (%) (Auto) 0% (0-3) Neutrophils # (Auto) 20.5x10^3uL (1.8-7.7) Lymphocytes # (Auto) 0.7x10^3/uL (1.0-4.8) Monocytes # (Auto) 1.0x10^3/uL (0.0-1.1) Eosinophils # (Auto) 0.0x10^3/uL (0.0-0.7) Basophils # (Auto) 0.1x10^3/uL (0.0-0.2) Sodium Level 133mmol/L (136-145) Potassium Level 4.3mmol/L (3.5-5.1) Chloride Level 104mmol/L (98-107) Carbon Dioxide Level 16mmol/L (21-32) Anion Gap 13 (6-14) Blood Urea Nitrogen 43mg/dL (8-26) Creatinine 2.4mg/dL (0.7-1.3) Estimated GFR (Cockcroft-Gault) 35.0 Glucose Level 135mg/dL (70-99) Calcium Level 6.1mg/dL (8.5-10.1) O2 Saturation 96% (92-99) Arterial Blood pH 7.29 (7.35-7.45) Arterial Blood pCO2 at Patient Temp 34mmHg (35-46) Arterial Blood pO2 at Patient Temp 86mmHg (75-108) Arterial Blood HCO3 16mmol/L (21-28) Arterial Blood Base Excess -9mmol/L (-3-3) FiO2 80 Test 12/09/16 08:53 12/09/16 11:30 12/09/16 17:35 12/09/16 17:40 Glucose (Fingerstick) 127mg/dL (70-99) 174mg/dL (70-99) Heparin Anti-Xa Act, Unfractionated 0.60IU/mL (0.30-0.70) 0.65IU/mL (0.30-0.70) Test 12/10/16 00:20 12/10/16 05:30 12/10/16 08:15 12/10/16 08:30 Heparin Anti-Xa Act, Unfractionated 0.74IU/mL (0.30-0.70) 0.60IU/mL (0.30-0.70) White Blood Count 19.8x10^3/uL (4.0-11.0) Red Blood Count 3.69x10^6/uL (4.30-5.70) Hemoglobin 11.0g/dL (13.0-17.5) Hematocrit 33.5% (39.0-53.0) Mean Corpuscular Volume 91fL (79-100) Mean Corpuscular Hemoglobin 30pg (25-35) Mean Corpuscular Hemoglobin Concent 33g/dL (31-37) Red Cell Distribution Width 14.3% (11.5-14.5) Platelet Count 270x10^3/uL (140-400) Neutrophils (%) (Auto) 89% (31-73) Lymphocytes (%) (Auto) 4% (24-48) Monocytes (%) (Auto) 7% (0-9) Eosinophils (%) (Auto) 0% (0-3) Basophils (%) (Auto) 0% (0-3) Neutrophils # (Auto) 17.6x10^3uL (1.8-7.7) Lymphocytes # (Auto) 0.8x10^3/uL (1.0-4.8) Monocytes # (Auto) 1.3x10^3/uL (0.0-1.1) Eosinophils # (Auto) 0.0x10^3/uL (0.0-0.7) Basophils # (Auto) 0.1x10^3/uL (0.0-0.2) O2 Saturation 90% (92-99) Arterial Blood pH 7.40 (7.35-7.45) Arterial Blood pCO2 at Patient Temp 40mmHg (35-46) Arterial Blood pO2 at Patient Temp 59mmHg (75-108) Arterial Blood HCO3 24mmol/L (21-28) Arterial Blood Base Excess 0mmol/L (-3-3) FiO2 50 Sodium Level 139mmol/L (136-145) Potassium Level 3.5mmol/L (3.5-5.1) Chloride Level 104mmol/L (98-107) Carbon Dioxide Level 25mmol/L (21-32) Anion Gap 10 (6-14) Blood Urea Nitrogen 37mg/dL (8-26) Creatinine 2.9mg/dL (0.7-1.3) Estimated GFR (Cockcroft-Gault) 28.1 BUN/Creatinine Ratio 13 (6-20) Glucose Level 134mg/dL (70-99) Calcium Level 6.0mg/dL (8.5-10.1) Total Bilirubin 0.2mg/dL (0.2-1.0) Aspartate Amino Transf (AST/SGOT) 148U/L (15-37) Alanine Aminotransferase (ALT/SGPT) 52U/L (16-63) Alkaline Phosphatase 28U/L (46-116) Total Protein 4.7g/dL (6.4-8.2) Albumin 1.2g/dL (3.4-5.0) Albumin/Globulin Ratio 0.3 (1.0-1.7) Laboratory Tests Test 12/09/16 11:30 12/09/16 17:35 12/09/16 17:40 12/10/16 00:20 Heparin Anti-Xa Act, Unfractionated 0.60IU/mL (0.30-0.70) 0.65IU/mL (0.30-0.70) 0.74IU/mL (0.30-0.70) Glucose (Fingerstick) 174mg/dL (70-99) Test 12/10/16 05:30 12/10/16 08:15 12/10/16 08:30 White Blood Count 19.8x10^3/uL (4.0-11.0) Red Blood Count 3.69x10^6/uL (4.30-5.70) Hemoglobin 11.0g/dL (13.0-17.5) Hematocrit 33.5% (39.0-53.0) Mean Corpuscular Volume 91fL (79-100) Mean Corpuscular Hemoglobin 30pg (25-35) Mean Corpuscular Hemoglobin Concent 33g/dL (31-37) Red Cell Distribution Width 14.3% (11.5-14.5) Platelet Count 270x10^3/uL (140-400) Neutrophils (%) (Auto) 89% (31-73) Lymphocytes (%) (Auto) 4% (24-48) Monocytes (%) (Auto) 7% (0-9) Eosinophils (%) (Auto) 0% (0-3) Basophils (%) (Auto) 0% (0-3) Neutrophils # (Auto) 17.6x10^3uL (1.8-7.7) Lymphocytes # (Auto) 0.8x10^3/uL (1.0-4.8) Monocytes # (Auto) 1.3x10^3/uL (0.0-1.1) Eosinophils # (Auto) 0.0x10^3/uL (0.0-0.7) Basophils # (Auto) 0.1x10^3/uL (0.0-0.2) Heparin Anti-Xa Act, Unfractionated 0.60IU/mL (0.30-0.70) O2 Saturation 90% (92-99) Arterial Blood pH 7.40 (7.35-7.45) Arterial Blood pCO2 at Patient Temp 40mmHg (35-46) Arterial Blood pO2 at Patient Temp 59mmHg (75-108) Arterial Blood HCO3 24mmol/L (21-28) Arterial Blood Base Excess 0mmol/L (-3-3) FiO2 50 Sodium Level 139mmol/L (136-145) Potassium Level 3.5mmol/L (3.5-5.1) Chloride Level 104mmol/L (98-107) Carbon Dioxide Level 25mmol/L (21-32) Anion Gap 10 (6-14) Blood Urea Nitrogen 37mg/dL (8-26) Creatinine 2.9mg/dL (0.7-1.3) Estimated GFR (Cockcroft-Gault) 28.1 BUN/Creatinine Ratio 13 (6-20) Glucose Level 134mg/dL (70-99) Calcium Level 6.0mg/dL (8.5-10.1) Total Bilirubin 0.2mg/dL (0.2-1.0) Aspartate Amino Transf (AST/SGOT) 148U/L (15-37) Alanine Aminotransferase (ALT/SGPT) 52U/L (16-63) Alkaline Phosphatase 28U/L (46-116) Total Protein 4.7g/dL (6.4-8.2) Albumin 1.2g/dL (3.4-5.0) Albumin/Globulin Ratio 0.3 (1.0-1.7) Microbiology 12/07/16 Blood Culture - Preliminary, Resulted NO GROWTH AFTER 2 DAYS 12/07/16 Stool Culture - Preliminary, Resulted 12/07/16 Stool Culture Result 1 (NEFTALI) - Preliminary, Resulted 12/07/16 Campylobacter Antigen Assay - Final, Resulted 12/07/16 Campylobactor Result 1 - Final, Resulted 12/07/16 Shiga Toxin Test - Final, Resulted 12/08/16 Sputum Culture - Preliminary, Resulted 12/08/16 Sputum Result 1 - Preliminary, Resulted Medications Current Medications Ketorolac Tromethamine 30 mg 30 mg 1X ONCE IV Last administered on 12/07/16t 14:34; Start 12/07/16 at 14:30; Stop 12/07/16 at 14:31; Status DC Sodium Chloride 1,000 ml @ 1,000 mls/hr 1X ONCE IV Last administered on t 14:34; Start 12/07/16 at 14:30; Stop 12/07/16 at 15:29; Status DC Ceftriaxone Sodium 1 gm/ Sodium Chloride 50 ml @ 100 mls/hr Q24H IV ; Start at 15:30; Stop 12/08/16 at 15:30; Status DC Azithromycin 250 ml @ 250 mls/hr 1X ONCE IV Last administered on 12/07/16 15 :48; Start 12/07/16 at 15:15; Stop 12/07/16 at 16:14; Status DC Sodium Chloride 1,000 ml @ 1,000 mls/hr 1X ONCE IV Last administered on 16:09; Start 12/07/16 at 15:15; Stop 12/07/16 at 16:14; Status DC Ceftriaxone Sodium 50 ml @ 100 mls/hr 1X ONCE IV Last administered on 15:29; Start 12/07/16 at 15:15; Stop 12/07/16 at 15:44; Status DC Sodium Chloride (Iv Sodium Chloride 0.9% 1000ml Bag) 1,000 ml @ 150 mls/hr 1X ONCE IV Last administered on 12/07/16 18:10; Start 12/07/16 at 15:15; Stop 11/11 at 21:54; Status DC Famotidine (Pepcid) 20 mg 1X ONCE IVP Last administered on 12/07/16 15:48; Start 12/07/16 at 15:45; Stop 12/07/16 at 15:46; Status DC Ondansetron HCl 4 mg 4 mg 1X ONCE IV Last administered on 12/07/16 16:09; Start 12/07/16 at 16:15; Stop 12/07/16 at 16:16; Status DC Sodium Chloride (Iv Sodium Chloride 0.9% 1000ml Bag) 1,000 ml @ 150 mls/hr Q6H40M IV Last administered on 12/08/16 06:38; Start 12/07/16 at 16:30; Stop 12/08/16 at 14:21; Status DC Ondansetron HCl (Zofran) 4 mg PRN Q6HRS PRN IV NAUSEA/VOMITING; Start 12/07/16 at 16:30 Acetaminophen (Tylenol) 500 mg PRN Q6HRS PRN PO MILD PAIN / TEMP Last administered on 12/09/16 15:04; Start 12/07/16 at 16:30 Morphine Sulfate 2 mg PRN Q2HR PRN IV PAIN Last administered on 12/08/16 05:28 ; Start 12/07/16 at 16:30 Zolpidem Tartrate (Ambien) 5 mg PRN QHS PRN PO INSOMNIA Last administered on 01:06; Start 12/07/16 at 16:30; Stop 12/08/16 at 10:03; Status DC Methocarbamol (Robaxin) 500 mg QID PO Last administered on 12/07/16 21:19; Start 12/07/16 at 17:00; Stop 12/08/16 at 10:03; Status DC Oxycodone/ Acetaminophen (Percocet 5/325) 1 tab PRN Q4HRS PRN PO SEVERE PAIN; Start 12/07/16 at 16:30 Tramadol HCl (Ultram) 50 mg PRN Q6HRS PRN PO MODERATE PAIN Last administered on 12/07/16 17:11; Start 12/07/16 at 16:30 Nicotine (Nicoderm Cq 21mg) 1 patch PRN DAILY PRN TD SMOKING CESSATION; Start 12/07/16 at 16:30 Info (Do NOT chart on this placeholder) 1 each 1X ONCE MC ; Start 12/07/16 at 22:45; Stop 12/07/16 at 22:46; Status UNV Pneumococcal Polyvalent Vaccine (Do NOT chart on this placeholder) 1 each 1X ONCE MC ; Start 12/07/16 at 22:45; Stop 12/07/16 at 22:46; Status UNV Influenza Virus Vaccine Quadrival (Fluarix Quad [id number] Syringe) 0.5 ml ONCE ONCE VAX IM ; Start 12/08/16 at 09:00; Stop 12/08/16 at 09:01; Status DC Pneumococcal Polyvalent Vaccine (Pneumovax 23) 0.5 ml ONCE ONCE VAX IM ; Start 12/08/16 at 09:00; Stop 12/08/16 at 09:01; Status DC Labetalol HCl (Normodyne) 10 mg 1X ONCE IVP Last administered on 12/08/16 08: 56; Start 12/08/16 at 08:30; Stop 12/08/16 at 08:35; Status DC Alprazolam (Xanax) 0.5 mg 1X ONCE PO Last administered on 12/08/16 08:40; Start 12/08/16 at 08:45; Stop 12/08/16 at 08:46; Status DC Aspirin (Children'S Aspirin) 324 mg 1X ONCE PO Last administered on 12/08/16 13:44; Start 12/08/16 at 09:30; Stop 12/08/16 at 09:31; Status DC Aspirin (Jada Aspirin) 325 mg DAILYWBKFT PO ; Start 12/09/16 at 08:00; Stop at 08:00; Status DC Heparin Sodium (Porcine) 4000 unit 4,000 unit 1X ONCE IV ; Start 12/08/16 at 09 :30; Stop 12/08/16 at 14:21; Status DC Midazolam HCl 100 ml @ As Directed STK-MED ONCE IV ; Start 12/08/16 at 09:52; Stop 12/08/16 at 09:53; Status DC Propofol (Diprivan) 100 ml @ 0 mls/hr CONT PRN IV SEE I/O RECORD Last administered on 12/08/16 23:49; Start 12/08/16 at 10:00 Famotidine (Pepcid) 20 mg QHS IVP Last administered on 12/09/16 20:38; Start 12/08/16 at 21:00 Heparin Sodium (Porcine) 5000 unit 5,000 unit Q8HRS SQ ; Start 12/08/16 at 14:00 ; Stop 12/08/16 at 14:00; Status DC Norepinephrine Bitartrate 8 mg/ Sodium Chloride 258 ml @ 1.93 mls/hr CONT PRN IV SEE I/O RECORD; Start 12/08/16 at 10:15; Status Cancel Dopamine HCl/ Dextrose 250 ml @ As Directed STK-MED ONCE IV ; Start 12/08/16 at 10:07; Stop 12/08/16 at 10:08; Status DC Norepinephrine Bitartrate 8 mg/ Sodium Chloride 258 ml @ 0 mls/hr CONT PRN IV SEE I/O RECORD Last administered on 12/09/16 08:46; Start 12/08/16 at 10:15; Stop 12/09/16 at 11:47; Status DC Dopamine HCl/ Dextrose 250 ml @ 10.084 mls/ hr CONT PRN IV SEE I/O RECORD Last administered on 12/08/16 10:00; Start 12/08/16 at 10:15 Sodium Bicarbonate/ Sodium Chloride (Iv Sodium Chloride 0.45%) 1,050 ml @ 200 mls/hr Q5H15M IV Last administered on 12/09/16 05:11; Start 12/08/16 at 10:30 ; Stop 12/09/16 at 08:28; Status DC Phenylephrine HCl 1 mg STK-MED ONCE IV ; Start 12/08/16 at 10:25; Stop 12/08/16 at 10:26; Status DC Aspirin 300 mg 300 mg 1X ONCE [place] ; Start 12/08/16 at 10:45; Stop 12/08/16 at 10 :46; Status DC Sodium Chloride 1,000 ml @ 1,000 mls/hr 1X ONCE IV Last administered on 10:00; Start 12/08/16 at 11:45; Stop 12/08/16 at 12:44; Status DC Sodium Chloride (Iv Sodium Chloride 0.9% 1000ml Bag) 1,000 ml @ 1,000 mls/hr 1X ONCE IV Last administered on 12/08/16 10:00; Start 12/08/16 at 11:45; Stop 12/08/16 at 12:44; Status DC Albuterol/ Ipratropium (Duoneb) 3 ml RTQID NEB Last administered on 12/08/16 19:44; Start 12/08/16 at 12:30; Stop 12/09/16 at 05:17; Status DC Budesonide 0.5 mg 0.5 mg RTBID NEB Last administered on 12/10/16 08:19; Start 12/08/16 at 12:30 Sodium Chloride 1,000 ml @ 1,000 mls/hr 1X ONCE IV Last administered on 11:00; Start 12/08/16 at 12:15; Stop 12/08/16 at 13:14; Status DC Sodium Chloride 1,000 ml @ 1,000 mls/hr 1X ONCE IV Last administered on 11:00; Start 12/08/16 at 12:15; Stop 12/08/16 at 13:14; Status DC Heparin Sodium/ Dextrose 500 ml @ 0 mls/hr CONT PRN IV SEE I/O RECORD Last administered on 12/09/16 13:11; Start 12/08/16 at 12:45 Heparin Sodium (Porcine) 1,350 unit PRN Q6HRS PRN IV FOR UFH LEVEL LESS THAN 0.2 Last administered on 12/09/16 05:47; Start 12/08/16 at 12:45 Etomidate (Amidate) 20 mg STK-MED ONCE IV ; Start 12/08/16 at 13:00; Stop at 13:01; Status DC Succinylcholine Chloride 200 mg 200 mg STK-MED ONCE .ROUTE ; Start 12/08/16 at 13:00; Stop 12/08/16 at 13:01; Status DC Piperacillin Sod/ Tazobactam Sod 3.375 gm/Sodium Chloride 50 ml @ 100 mls/hr Q6HRS IV ; Start 12/08/16 at 18:00; Stop 12/08/16 at 18:00; Status DC Vancomycin HCl 1 gm/Sodium Chloride 250 ml @ 250 mls/hr 1X ONCE IV Last administered on 12/08/16 14:21; Start 12/08/16 at 14:00; Stop 12/08/16 at 14:59 ; Status DC Piperacillin Sod/ Tazobactam Sod 2.25 gm/Sodium Chloride 50 ml @ 100 mls/hr Q6HRS IV Last administered on 12/09/16 06:17; Start 12/08/16 at 14:00; Stop at 08:25; Status DC Midazolam HCl 100 ml @ 0 mls/hr CONT PRN IV SEE I/O RECORD Last administered on 12/10/16 04:20; Start 12/08/16 at 10:30 Fentanyl Citrate (Fentanyl 600 Mcg/30 ml ETCHER APPRENTICE) 30 ml @ 0 mls/hr CONT PRN IV PROTOCOL Last administered on 12/10/16 08:19; Start 12/09/16 at 05:15 Fentanyl Citrate (Fentanyl 2ml Vial) 25 mcg PRN Q1HR PRN IV COMM; Start at 05:15 Fentanyl Citrate (Fentanyl 2ml Vial) 50 mcg PRN Q1HR PRN IV COMM; Start at 05:15 Ipratropium [place] (Atrovent) 0.5 mg RTQID NEB Last administered on 12/10/16 08:24; Start 12/09/16 at 08:00 Aspirin (Children'S Aspirin) 81 mg DAILYWBKFT PO Last administered on 08:13; Start 12/09/16 at 08:00 Chlorhexidine Gluconate 15 ml 15 ml BID MM Last administered on 12/10/16 08:13 ; Start 12/09/16 at 09:00 Sodium Bicarbonate 150 meq/Dextrose 1,150 ml @ 100 mls/hr [id number] IV Last administered on 12/10/16 09:34; Start 12/09/16 at 09:00 Piperacillin Sod/ Tazobactam Sod 3.375 gm/Sodium Chloride 50 ml @ 100 mls/hr Q6HRS IV Last administered on 12/10/16 05:59; Start 12/09/16 at 12:00 Norepinephrine Bitartrate 16 mg/ Sodium Chloride 266 ml @ 0.99 mls/hr CONT PRN IV SEE I/O RECORD Last administered on 12/09/16 20:36; Start 12/09/16 at 12 :00 Doxycycline Hyclate/Dextrose 100 ml @ 50 mls/hr Q12HR IV Last administered on 12/10/16 08:13; Start 12/09/16 at 13:00 Atropine Sulfate 0.5 mg STK-MED ONCE .ROUTE ; Start 12/08/16 at 10:30; Stop at 13:18; Status DC Epinephrine HCl 3 mg STK-MED ONCE .ROUTE ; Start 12/08/16 at 10:30; Stop at 13:18; Status DC Active Scripts Active Ultram (Tramadol Hcl) 50 Mg Tablet 50 Mg PO Q6H PRN Robaxin (Methocarbamol) 500 Mg Tablet 500 Mg PO QID Reported Percocet 5-325 Mg Tablet (Oxycodone/Acetaminophen) 1 Each Tablet 1-2 Tab PO Q4HRS Vitals/I & O Vital Sign - Last 24 Hours 12/09/16 12/09/16 12/09/16 12/09/16 10:00 10:00 10:00 11:00 Pulse 128 128 128 Resp 35 B/P 100/70 100/70 88/60 Pulse Ox 100 91 O2 Delivery Ventilator Ventilator 12/09/16 12/09/16 12/09/16 12/09/16 11:00 12:00 12:00 12:00 Pulse 128 124 124 Resp 30 31 B/P 88/60 88/60 88/60 Pulse Ox 98 100 O2 Delivery Ventilator Ventilator Mechanical Ventilator O2 Flow Rate 4.0 12/09/16 12/09/16 12/09/16 12/09/16 12:21 13:00 13:00 14:00 Pulse 126 126 124 Resp 30 B/P 88/62 88/62 82/58 Pulse Ox 100 100 O2 Delivery Ventilator Ventilator 12/09/16 12/09/16 12/09/16 12/09/16 14:00 14:15 15:00 15:00 Temp 101.8 102.2 101.8 102.2 Pulse 123 118 120 Resp 30 30 B/P 82/58 72/50 72/50 Pulse Ox 100 100 100 O2 Delivery Ventilator Ventilator Ventilator 12/09/16 12/09/16 12/09/16 12/09/16 16:00 16:00 16:11 17:00 Temp 102.2 102.2 102.2 102.2 Pulse 120 118 Resp 26 28 B/P 98/68 98/66 Pulse Ox 100 100 100 O2 Delivery Ventilator Mechanical Ventilator Ventilator Ventilator O2 Flow Rate 4.0 12/09/16 12/09/16 12/09/16 12/09/16 17:00 18:00 18:00 19:00 Pulse 118 116 116 116 Resp 28 B/P 98/66 104/64 104/64 112/66 Pulse Ox 100 O2 Delivery Ventilator 12/09/16 12/09/16 12/09/16 12/09/16 19:00 19:39 19:45 20:00 Pulse 116 Resp 25 B/P 112/66 93/62 Pulse Ox 100 100 O2 Delivery Ventilator Ventilator Mechanical Ventilator 12/09/16 12/09/16 12/09/16 12/09/16 20:00 20:00 21:00 21:00 Temp 100.7 100.7 Pulse 112 112 114 114 Resp 28 23 B/P 108/68 108/68 120/74 120/74 Pulse Ox 100 100 O2 Delivery Ventilator Ventilator 12/09/16 12/09/16 12/09/16 12/09/16 21:35 21:35 22:00 22:00 Pulse 116 116 Resp 30 B/P 120/74 121/76 121/76 Pulse Ox 100 100 O2 Delivery Ventilator Ventilator 12/09/16 12/09/16 12/09/1617 22:15 22:39 23:00 23:00 Pulse 116 116 Resp 31 B/P 112/70 110/71 112/74 112/74 Pulse Ox 99 O2 Delivery Ventilator 12/09/16 12/09/16 12/09/16 12/10/16 23:15 23:23 23:37 00:00 Resp 29 B/P 116/68 Pulse Ox 99 100 O2 Delivery Ventilator Ventilator Mechanical Ventilator 12/10/16 12/10/16 12/10/16 12/10/16 00:00 00:00 01:00 01:00 Temp 101.1 101.1 Pulse 108 108 108 108 Resp 26 24 B/P 90/50 90/50 117/64 117/64 Pulse Ox 98 100 O2 Delivery Ventilator Ventilator 12/10/16 12/10/16 12/10/16 12/10/16 01:15 02:00 02:00 02:14 Pulse 106 106 Resp 22 B/P 114/64 109/62 109/62 Pulse Ox 99 100 O2 Delivery Ventilator Ventilator 12/10/16 12/10/16 12/10/16 12/10/16 02:15 03:00 03:00 04:00 Pulse 103 103 Resp 22 B/P 90/54 99/55 99/55 Pulse Ox 96 O2 Delivery Ventilator Mechanical Ventilator 12/10/16 12/10/16 12/10/16 12/10/16 04:00 04:00 04:51 05:00 Temp 99.0 99.0 Pulse 102 102 104 Resp 22 B/P 102/57 102/57 117/63 Pulse Ox 97 94 O2 Delivery Ventilator Ventilator 12/10/16 12/10/16 12/10/16 12/10/16 05:00 05:20 06:00 06:00 Pulse 104 102 102 Resp 22 22 B/P 117/63 109/60 102/52 102/52 Pulse Ox 96 95 O2 Delivery Ventilator Ventilator 12/10/16 12/10/16 12/10/16 12/10/16 07:00 07:00 08:15 08:19 Pulse 102 101 Resp 22 22 B/P 120/67 103/53 Pulse Ox 99 100 O2 Delivery Ventilator Ventilator Intake and Output 12/09/16 12/09/16 12/10/16 15:00 23:00 07:00 Intake Total 803 ml 2826 ml 1957 ml Output Total 305 ml 570 ml 655 ml Balance 498 ml 2256 ml 1302 ml OSCAR SANTA MD Dec 10, 2016 09:40
--- NOTE | 2016-12-10 09:58 | PDOC ---
PROGRESS NOTES Chief Complaint Chief Complaint cc: Weakness, dehydration 1. Cardiac arrest PEA (12/08) 2. Acute respiratory failure On mechanical Ventilation (12/08)- possible aspiration pneumonia 3. ASHLEY 4. Septic shock, multiorgan failure, Off pressor support 5. Cardiomyopathy 6. Metabolic acidosis 7. Cocaine use 8. Elevated troponin, 9. Nicotine use. 10. Hypocalcemia. Plan On mechanical ventilation, at 50% Fio2 Good urine out put, on IV Fentanyl and versed off Levophed gtt, off Heparin gtt On Bicarb gtt, nephrology monitoring Replace electrolytes. Follow blood cx On Zosyn,doxycycline Tube feeds, ID following, cxr Worsening. Cardiology, pulmonology and nephrology following. DVT/GI prophylaxis. cc time 32 min History of Present Illness History of Present Illness no overnight events, worsening CXR. Vitals Vitals Vital Signs Date Time Temp Pulse Resp B/P Pulse Ox O2 Delivery O2 Flow Rate FiO2 12/10/16 08:19 22 12/10/16 08:15 100 Ventilator 12/10/16 07:00 101 103/53 12/10/16 04:00 99.0 99.0 12/09/16 16:00 4.0 Physical Exam General: No acute distress, Other (intubated/sedated ) Heart: Normal S1, Normal S2, Other (tachycardia. ) Lungs: Crackles Abdomen: Normal bowel sounds, Soft, No tenderness Extremities: No edema, Other (DP pulses not palpable ) Skin: No significant lesion Labs LABS Laboratory Tests Test 12/09/16 11:30 12/09/16 17:35 12/09/16 17:40 12/10/16 00:20 Heparin Anti-Xa Act, Unfractionated 0.60IU/mL (0.30-0.70) 0.65IU/mL (0.30-0.70) 0.74IU/mL (0.30-0.70) Glucose (Fingerstick) 174mg/dL (70-99) Test 12/10/16 05:30 12/10/16 08:15 12/10/16 08:30 White Blood Count 19.8x10^3/uL (4.0-11.0) Red Blood Count 3.69x10^6/uL (4.30-5.70) Hemoglobin 11.0g/dL (13.0-17.5) Hematocrit 33.5% (39.0-53.0) Mean Corpuscular Volume 91fL (79-100) Mean Corpuscular Hemoglobin 30pg (25-35) Mean Corpuscular Hemoglobin Concent 33g/dL (31-37) Red Cell Distribution Width 14.3% (11.5-14.5) Platelet Count 270x10^3/uL (140-400) Neutrophils (%) (Auto) 89% (31-73) Lymphocytes (%) (Auto) 4% (24-48) Monocytes (%) (Auto) 7% (0-9) Eosinophils (%) (Auto) 0% (0-3) Basophils (%) (Auto) 0% (0-3) Neutrophils # (Auto) 17.6x10^3uL (1.8-7.7) Lymphocytes # (Auto) 0.8x10^3/uL (1.0-4.8) Monocytes # (Auto) 1.3x10^3/uL (0.0-1.1) Eosinophils # (Auto) 0.0x10^3/uL (0.0-0.7) Basophils # (Auto) 0.1x10^3/uL (0.0-0.2) Heparin Anti-Xa Act, Unfractionated 0.60IU/mL (0.30-0.70) O2 Saturation 90% (92-99) Arterial Blood pH 7.40 (7.35-7.45) Arterial Blood pCO2 at Patient Temp 40mmHg (35-46) Arterial Blood pO2 at Patient Temp 59mmHg (75-108) Arterial Blood HCO3 24mmol/L (21-28) Arterial Blood Base Excess 0mmol/L (-3-3) FiO2 50 Sodium Level 139mmol/L (136-145) Potassium Level 3.5mmol/L (3.5-5.1) Chloride Level 104mmol/L (98-107) Carbon Dioxide Level 25mmol/L (21-32) Anion Gap 10 (6-14) Blood Urea Nitrogen 37mg/dL (8-26) Creatinine 2.9mg/dL (0.7-1.3) Estimated GFR (Cockcroft-Gault) 28.1 BUN/Creatinine Ratio 13 (6-20) Glucose Level 134mg/dL (70-99) Calcium Level 6.0mg/dL (8.5-10.1) Total Bilirubin 0.2mg/dL (0.2-1.0) Aspartate Amino Transf (AST/SGOT) 148U/L (15-37) Alanine Aminotransferase (ALT/SGPT) 52U/L (16-63) Alkaline Phosphatase 28U/L (46-116) Total Protein 4.7g/dL (6.4-8.2) Albumin 1.2g/dL (3.4-5.0) Albumin/Globulin Ratio 0.3 (1.0-1.7) Assessment and Plan Assessmemt and Plan Problems Medical Problems: (1) ARF (acute renal failure) Status: Acute (2) CAP (community acquired pneumonia) Status: Acute Problems: Comment Review of Relevant I have reviewed the following items immanuel (where applicable) has been applied. Labs Laboratory Tests Test 12/08/16 11:05 12/08/16 11:30 12/08/16 12:59 12/08/16 14:49 O2 Saturation 95% (92-99) Arterial Blood pH 7.02 (7.35-7.45) Arterial Blood pCO2 at Patient Temp 43mmHg (35-46) Arterial Blood pO2 at Patient Temp 109mmHg (75-108) Arterial Blood HCO3 11mmol/L (21-28) Arterial Blood Base Excess -19mmol/L (-3-3) FiO2 100 Lactic Acid Level 3.6mmol/L (0.4-2.0) Body Fluid Culture (LAB) (.) Urine Opiates Screen Pos (NEG) Urine Methadone Screen Neg (NEG) Urine Barbiturates Neg (NEG) Urine Phencyclidine Screen Neg (NEG) Urine Amphetamine/Methamphetamine Neg (NEG) Urine Benzodiazepines Screen Pos (NEG) Urine Cocaine Screen Pos (NEG) Urine Cannabinoids Screen Pos (NEG) Urine Ethyl Alcohol Neg (NEG) Urine Legionella Antigen Negative (Negative) Streptococcus pneumoniae Antigen Negative (Negative) Organism Identification (LAB) (.) NEFTALI Specimen Source Urine (.) Glucose (Fingerstick) 175mg/dL (70-99) Test 12/08/16 14:53 12/08/16 15:25 12/08/16 16:00 12/08/16 16:19 Troponin I Quantitative 3.064ng/mL (0.000-0.055) O2 Saturation 95% (92-99) Arterial Blood pH 7.12 (7.35-7.45) Arterial Blood pCO2 at Patient Temp 35mmHg (35-46) Arterial Blood pO2 at Patient Temp 93mmHg (75-108) Arterial Blood HCO3 11mmol/L (21-28) Arterial Blood Base Excess -17mmol/L (-3-3) FiO2 100 Lactic Acid Level 2.1mmol/L (0.4-2.0) Nasal Screen MRSA (PCR) Negative (Negative) Test 12/08/16 20:15 12/09/16 03:45 12/09/16 05:40 12/09/16 08:00 Heparin Anti-Xa Act, Unfractionated < 0.10IU/mL (0.30-0.70) < 0.10IU/mL (0.30-0.70) Lactic Acid Level 1.5mmol/L (0.4-2.0) White Blood Count 22.2x10^3/uL (4.0-11.0) Red Blood Count 4.28x10^6/uL (4.30-5.70) Hemoglobin 13.0g/dL (13.0-17.5) Hematocrit 39.7% (39.0-53.0) Mean Corpuscular Volume 93fL (79-100) Mean Corpuscular Hemoglobin 31pg (25-35) Mean Corpuscular Hemoglobin Concent 33g/dL (31-37) Red Cell Distribution Width 14.7% (11.5-14.5) Platelet Count 248x10^3/uL (140-400) Neutrophils (%) (Auto) 92% (31-73) Lymphocytes (%) (Auto) 3% (24-48) Monocytes (%) (Auto) 4% (0-9) Eosinophils (%) (Auto) 0% (0-3) Basophils (%) (Auto) 0% (0-3) Neutrophils # (Auto) 20.5x10^3uL (1.8-7.7) Lymphocytes # (Auto) 0.7x10^3/uL (1.0-4.8) Monocytes # (Auto) 1.0x10^3/uL (0.0-1.1) Eosinophils # (Auto) 0.0x10^3/uL (0.0-0.7) Basophils # (Auto) 0.1x10^3/uL (0.0-0.2) Sodium Level 133mmol/L (136-145) Potassium Level 4.3mmol/L (3.5-5.1) Chloride Level 104mmol/L (98-107) Carbon Dioxide Level 16mmol/L (21-32) Anion Gap 13 (6-14) Blood Urea Nitrogen 43mg/dL (8-26) Creatinine 2.4mg/dL (0.7-1.3) Estimated GFR (Cockcroft-Gault) 35.0 Glucose Level 135mg/dL (70-99) Calcium Level 6.1mg/dL (8.5-10.1) O2 Saturation 96% (92-99) Arterial Blood pH 7.29 (7.35-7.45) Arterial Blood pCO2 at Patient Temp 34mmHg (35-46) Arterial Blood pO2 at Patient Temp 86mmHg (75-108) Arterial Blood HCO3 16mmol/L (21-28) Arterial Blood Base Excess -9mmol/L (-3-3) FiO2 80 Test 12/09/16 08:53 12/09/16 11:30 12/09/16 17:35 12/09/16 17:40 Glucose (Fingerstick) 127mg/dL (70-99) 174mg/dL (70-99) Heparin Anti-Xa Act, Unfractionated 0.60IU/mL (0.30-0.70) 0.65IU/mL (0.30-0.70) Test 12/10/16 00:20 12/10/16 05:30 12/10/16 08:15 12/10/16 08:30 Heparin Anti-Xa Act, Unfractionated 0.74IU/mL (0.30-0.70) 0.60IU/mL (0.30-0.70) White Blood Count 19.8x10^3/uL (4.0-11.0) Red Blood Count 3.69x10^6/uL (4.30-5.70) Hemoglobin 11.0g/dL (13.0-17.5) Hematocrit 33.5% (39.0-53.0) Mean Corpuscular Volume 91fL (79-100) Mean Corpuscular Hemoglobin 30pg (25-35) Mean Corpuscular Hemoglobin Concent 33g/dL (31-37) Red Cell Distribution Width 14.3% (11.5-14.5) Platelet Count 270x10^3/uL (140-400) Neutrophils (%) (Auto) 89% (31-73) Lymphocytes (%) (Auto) 4% (24-48) Monocytes (%) (Auto) 7% (0-9) Eosinophils (%) (Auto) 0% (0-3) Basophils (%) (Auto) 0% (0-3) Neutrophils # (Auto) 17.6x10^3uL (1.8-7.7) Lymphocytes # (Auto) 0.8x10^3/uL (1.0-4.8) Monocytes # (Auto) 1.3x10^3/uL (0.0-1.1) Eosinophils # (Auto) 0.0x10^3/uL (0.0-0.7) Basophils # (Auto) 0.1x10^3/uL (0.0-0.2) O2 Saturation 90% (92-99) Arterial Blood pH 7.40 (7.35-7.45) Arterial Blood pCO2 at Patient Temp 40mmHg (35-46) Arterial Blood pO2 at Patient Temp 59mmHg (75-108) Arterial Blood HCO3 24mmol/L (21-28) Arterial Blood Base Excess 0mmol/L (-3-3) FiO2 50 Sodium Level 139mmol/L (136-145) Potassium Level 3.5mmol/L (3.5-5.1) Chloride Level 104mmol/L (98-107) Carbon Dioxide Level 25mmol/L (21-32) Anion Gap 10 (6-14) Blood Urea Nitrogen 37mg/dL (8-26) Creatinine 2.9mg/dL (0.7-1.3) Estimated GFR (Cockcroft-Gault) 28.1 BUN/Creatinine Ratio 13 (6-20) Glucose Level 134mg/dL (70-99) Calcium Level 6.0mg/dL (8.5-10.1) Total Bilirubin 0.2mg/dL (0.2-1.0) Aspartate Amino Transf (AST/SGOT) 148U/L (15-37) Alanine Aminotransferase (ALT/SGPT) 52U/L (16-63) Alkaline Phosphatase 28U/L (46-116) Total Protein 4.7g/dL (6.4-8.2) Albumin 1.2g/dL (3.4-5.0) Albumin/Globulin Ratio 0.3 (1.0-1.7) Laboratory Tests Test 12/09/16 11:30 12/09/16 17:35 12/09/16 17:40 12/10/16 00:20 Heparin Anti-Xa Act, Unfractionated 0.60IU/mL (0.30-0.70) 0.65IU/mL (0.30-0.70) 0.74IU/mL (0.30-0.70) Glucose (Fingerstick) 174mg/dL (70-99) Test 12/10/16 05:30 12/10/16 08:15 12/10/16 08:30 White Blood Count 19.8x10^3/uL (4.0-11.0) Red Blood Count 3.69x10^6/uL (4.30-5.70) Hemoglobin 11.0g/dL (13.0-17.5) Hematocrit 33.5% (39.0-53.0) Mean Corpuscular Volume 91fL (79-100) Mean Corpuscular Hemoglobin 30pg (25-35) Mean Corpuscular Hemoglobin Concent 33g/dL (31-37) Red Cell Distribution Width 14.3% (11.5-14.5) Platelet Count 270x10^3/uL (140-400) Neutrophils (%) (Auto) 89% (31-73) Lymphocytes (%) (Auto) 4% (24-48) Monocytes (%) (Auto) 7% (0-9) Eosinophils (%) (Auto) 0% (0-3) Basophils (%) (Auto) 0% (0-3) Neutrophils # (Auto) 17.6x10^3uL (1.8-7.7) Lymphocytes # (Auto) 0.8x10^3/uL (1.0-4.8) Monocytes # (Auto) 1.3x10^3/uL (0.0-1.1) Eosinophils # (Auto) 0.0x10^3/uL (0.0-0.7) Basophils # (Auto) 0.1x10^3/uL (0.0-0.2) Heparin Anti-Xa Act, Unfractionated 0.60IU/mL (0.30-0.70) O2 Saturation 90% (92-99) Arterial Blood pH 7.40 (7.35-7.45) Arterial Blood pCO2 at Patient Temp 40mmHg (35-46) Arterial Blood pO2 at Patient Temp 59mmHg (75-108) Arterial Blood HCO3 24mmol/L (21-28) Arterial Blood Base Excess 0mmol/L (-3-3) FiO2 50 Sodium Level 139mmol/L (136-145) Potassium Level 3.5mmol/L (3.5-5.1) Chloride Level 104mmol/L (98-107) Carbon Dioxide Level 25mmol/L (21-32) Anion Gap 10 (6-14) Blood Urea Nitrogen 37mg/dL (8-26) Creatinine 2.9mg/dL (0.7-1.3) Estimated GFR (Cockcroft-Gault) 28.1 BUN/Creatinine Ratio 13 (6-20) Glucose Level 134mg/dL (70-99) Calcium Level 6.0mg/dL (8.5-10.1) Total Bilirubin 0.2mg/dL (0.2-1.0) Aspartate Amino Transf (AST/SGOT) 148U/L (15-37) Alanine Aminotransferase (ALT/SGPT) 52U/L (16-63) Alkaline Phosphatase 28U/L (46-116) Total Protein 4.7g/dL (6.4-8.2) Albumin 1.2g/dL (3.4-5.0) Albumin/Globulin Ratio 0.3 (1.0-1.7) Microbiology 12/07/16 Blood Culture - Preliminary, Resulted NO GROWTH AFTER 2 DAYS 12/07/16 Stool Culture - Preliminary, Resulted 12/07/16 Stool Culture Result 1 (NEFTALI) - Preliminary, Resulted 12/07/16 Campylobacter Antigen Assay - Final, Resulted 12/07/16 Campylobactor Result 1 - Final, Resulted 12/07/16 Shiga Toxin Test - Final, Resulted 12/08/16 Sputum Culture - Preliminary, Resulted 12/08/16 Sputum Result 1 - Preliminary, Resulted Medications Current Medications Ketorolac Tromethamine 30 mg 30 mg 1X ONCE IV Last administered on 12/07/16 14:34; Start 12/07/16 at 14:30; Stop 12/07/16 at 14:31; Status DC Sodium Chloride 1,000 ml @ 1,000 mls/hr 1X ONCE IV Last administered on 14:34; Start 12/07/16 at 14:30; Stop 12/07/16 at 15:29; Status DC Ceftriaxone Sodium 1 gm/ Sodium Chloride 50 ml @ 100 mls/hr Q24H IV ; Start at 15:30; Stop 12/08/16 at 15:30; Status DC Azithromycin 250 ml @ 250 mls/hr 1X ONCE IV Last administered on 12/07/16 15 :48; Start 12/07/16 at 15:15; Stop 12/07/16 at 16:14; Status DC Sodium Chloride 1,000 ml @ 1,000 mls/hr 1X ONCE IV Last administered on 16:09; Start 12/07/16 at 15:15; Stop 12/07/16 at 16:14; Status DC Ceftriaxone Sodium 50 ml @ 100 mls/hr 1X ONCE IV Last administered on 15:29; Start 12/07/16 at 15:15; Stop 12/07/16 at 15:44; Status DC Sodium Chloride (Iv Sodium Chloride 0.9% 1000ml Bag) 1,000 ml @ 150 mls/hr 1X ONCE IV Last administered on 12/07/16 18:10; Start 12/07/16 at 15:15; Stop 11/11 at 21:54; Status DC Famotidine (Pepcid) 20 mg 1X ONCE IVP Last administered on 12/07/16 15:48; Start 12/07/16 at 15:45; Stop 12/07/16 at 15:46; Status DC Ondansetron HCl 4 mg 4 mg 1X ONCE IV Last administered on 12/07/16 16:09; Start 12/07/16 at 16:15; Stop 12/07/16 at 16:16; Status DC Sodium Chloride (Iv Sodium Chloride 0.9% 1000ml Bag) 1,000 ml @ 150 mls/hr Q6H40M IV Last administered on 12/08/16 06:38; Start 12/07/16 at 16:30; Stop 12/08/16 at 14:21; Status DC Ondansetron HCl (Zofran) 4 mg PRN Q6HRS PRN IV NAUSEA/VOMITING; Start 12/07/16 at 16:30 Acetaminophen (Tylenol) 500 mg PRN Q6HRS PRN PO MILD PAIN / TEMP Last administered on 12/09/16 15:04; Start 12/07/16 at 16:30 Morphine Sulfate 2 mg PRN Q2HR PRN IV PAIN Last administered on 12/08/16 05:28 ; Start 12/07/16 at 16:30 Zolpidem Tartrate (Ambien) 5 mg PRN QHS PRN PO INSOMNIA Last administered on 01:06; Start 12/07/16 at 16:30; Stop 12/08/16 at 10:03; Status DC Methocarbamol (Robaxin) 500 mg QID PO Last administered on 12/07/16 21:19; Start 12/07/16 at 17:00; Stop 12/08/16 at 10:03; Status DC Oxycodone/ Acetaminophen (Percocet 5/325) 1 tab PRN Q4HRS PRN PO SEVERE PAIN; Start 12/07/16 at 16:30 Tramadol HCl (Ultram) 50 mg PRN Q6HRS PRN PO MODERATE PAIN Last administered on 12/07/16 17:11; Start 12/07/16 at 16:30 Nicotine (Nicoderm Cq 21mg) 1 patch PRN DAILY PRN TD SMOKING CESSATION; Start 12/07/16 at 16:30 Info (Do NOT chart on this placeholder) 1 each 1X ONCE MC ; Start 12/07/16 at 22:45; Stop 12/07/16 at 22:46; Status UNV Pneumococcal Polyvalent Vaccine (Do NOT chart on this placeholder) 1 each 1X ONCE MC ; Start 12/07/16 at 22:45; Stop 12/07/16 at 22:46; Status UNV Influenza Virus Vaccine Quadrival (Fluarix Quad [id number] Syringe) 0.5 ml ONCE ONCE VAX IM ; Start 12/08/16 at 09:00; Stop 12/08/16 at 09:01; Status DC Pneumococcal Polyvalent Vaccine (Pneumovax 23) 0.5 ml ONCE ONCE VAX IM ; Start 12/08/16 at 09:00; Stop 12/08/16 at 09:01; Status DC Labetalol HCl (Normodyne) 10 mg 1X ONCE IVP Last administered on 12/08/16 08: 56; Start 12/08/16 at 08:30; Stop 12/08/16 at 08:35; Status DC Alprazolam (Xanax) 0.5 mg 1X ONCE PO Last administered on 12/08/16 08:40; Start 12/08/16 at 08:45; Stop 12/08/16 at 08:46; Status DC Aspirin (Children'S Aspirin) 324 mg 1X ONCE PO Last administered on 12/08/16 13:44; Start 12/08/16 at 09:30; Stop 12/08/16 at 09:31; Status DC Aspirin (Jada Aspirin) 325 mg DAILYWBKFT PO ; Start 12/09/16 at 08:00; Stop at 08:00; Status DC Heparin Sodium (Porcine) 4000 unit 4,000 unit 1X ONCE IV ; Start 12/08/16 at 09 :30; Stop 12/08/16 at 14:21; Status DC Midazolam HCl 100 ml @ As Directed STK-MED ONCE IV ; Start 12/08/16 at 09:52; Stop 12/08/16 at 09:53; Status DC Propofol (Diprivan) 100 ml @ 0 mls/hr CONT PRN IV SEE I/O RECORD Last administered on 12/08/16 23:49; Start 12/08/16 at 10:00 Famotidine (Pepcid) 20 mg QHS IVP Last administered on 12/09/16 20:38; Start 12/08/16 at 21:00 Heparin Sodium (Porcine) 5000 unit 5,000 unit Q8HRS SQ ; Start 12/08/16 at 14:00 ; Stop 12/08/16 at 14:00; Status DC Norepinephrine Bitartrate 8 mg/ Sodium Chloride 258 ml @ 1.93 mls/hr CONT PRN IV SEE I/O RECORD; Start 12/08/16 at 10:15; Status Cancel Dopamine HCl/ Dextrose 250 ml @ As Directed STK-MED ONCE IV ; Start 12/08/16 at 10:07; Stop 12/08/16 at 10:08; Status DC Norepinephrine Bitartrate 8 mg/ Sodium Chloride 258 ml @ 0 mls/hr CONT PRN IV SEE I/O RECORD Last administered on 12/09/16 08:46; Start 12/08/16 at 10:15; Stop 12/09/16 at 11:47; Status DC Dopamine HCl/ Dextrose 250 ml @ 10.084 mls/ hr CONT PRN IV SEE I/O RECORD Last administered on 12/08/16 10:00; Start 12/08/16 at 10:15 Sodium Bicarbonate/ Sodium Chloride (Iv Sodium Chloride 0.45%) 1,050 ml @ 200 mls/hr Q5H15M IV Last administered on 12/09/16 05:11; Start 12/08/16 at 10:30 ; Stop 12/09/16 at 08:28; Status DC Phenylephrine HCl 1 mg STK-MED ONCE IV ; Start 12/08/16 at 10:25; Stop 12/08/16 at 10:26; Status DC Aspirin 300 mg 300 mg 1X ONCE HI ; Start 12/08/16 at 10:45; Stop 12/08/16 at 10 :46; Status DC Sodium Chloride 1,000 ml @ 1,000 mls/hr 1X ONCE IV Last administered on 10:00; Start 12/08/16 at 11:45; Stop 12/08/16 at 12:44; Status DC Sodium Chloride (Iv Sodium Chloride 0.9% 1000ml Bag) 1,000 ml @ 1,000 mls/hr 1X ONCE IV Last administered on 12/08/16 10:00; Start 12/08/16 at 11:45; Stop 12/08/16 at 12:44; Status DC Albuterol/ Ipratropium (Duoneb) 3 ml RTQID NEB Last administered on 12/08/16 19:44; Start 12/08/16 at 12:30; Stop 12/09/16 at 05:17; Status DC Budesonide 0.5 mg 0.5 mg RTBID NEB Last administered on 12/10/16 08:19; Start 12/08/16 at 12:30 Sodium Chloride 1,000 ml @ 1,000 mls/hr 1X ONCE IV Last administered on 11:00; Start 12/08/16 at 12:15; Stop 12/08/16 at 13:14; Status DC Sodium Chloride 1,000 ml @ 1,000 mls/hr 1X ONCE IV Last administered on 11:00; Start 12/08/16 at 12:15; Stop 12/08/16 at 13:14; Status DC Heparin Sodium/ Dextrose 500 ml @ 0 mls/hr CONT PRN IV SEE I/O RECORD Last administered on 12/09/16 13:11; Start 12/08/16 at 12:45 Heparin Sodium (Porcine) 1,350 unit PRN Q6HRS PRN IV FOR UFH LEVEL LESS THAN 0.2 Last administered on 12/09/16 05:47; Start 12/08/16 at 12:45 Etomidate (Amidate) 20 mg STK-MED ONCE IV ; Start 12/08/16 at 13:00; Stop at 13:01; Status DC Succinylcholine Chloride 200 mg 200 mg STK-MED ONCE .ROUTE ; Start 12/08/16 at 13:00; Stop 12/08/16 at 13:01; Status DC Piperacillin Sod/ Tazobactam Sod 3.375 gm/Sodium Chloride 50 ml @ 100 mls/hr Q6HRS IV ; Start 12/08/16 at 18:00; Stop 12/08/16 at 18:00; Status DC Vancomycin HCl 1 gm/Sodium Chloride 250 ml @ 250 mls/hr 1X ONCE IV Last administered on 12/08/16 14:21; Start 12/08/16 at 14:00; Stop 12/08/16 at 14:59 ; Status DC Piperacillin Sod/ Tazobactam Sod 2.25 gm/Sodium Chloride 50 ml @ 100 mls/hr Q6HRS IV Last administered on 12/09/16 06:17; Start 12/08/16 at 14:00; Stop at 08:25; Status DC Midazolam HCl 100 ml @ 0 mls/hr CONT PRN IV SEE I/O RECORD Last administered on 12/10/16 04:20; Start 12/08/16 at 10:30 Fentanyl Citrate (Fentanyl 600 Mcg/30 ml [employer]MAIL [employer]ET[employer]ORDINATOR) 30 ml @ 0 mls/hr CONT PRN IV PROTOCOL Last administered on 12/10/16 08:19; Start 12/09/16 at 05:15 Fentanyl Citrate (Fentanyl 2ml Vial) 25 mcg PRN Q1HR PRN IV COMM; Start at 05:15 Fentanyl Citrate (Fentanyl 2ml Vial) 50 mcg PRN Q1HR PRN IV COMM; Start at 05:15 Ipratropium [place] (Atrovent) 0.5 mg RTQID NEB Last administered on 12/10/16 08:24; Start 12/09/16 at 08:00 Aspirin (Children'S Aspirin) 81 mg DAILYWBKFT PO Last administered on 08:13; Start 12/09/16 at 08:00 Chlorhexidine Gluconate 15 ml 15 ml BID MM Last administered on 12/10/16 08:13 ; Start 12/09/16 at 09:00 Sodium Bicarbonate 150 meq/Dextrose 1,150 ml @ 100 mls/hr [id number] IV Last administered on 12/10/16 09:34; Start 12/09/16 at 09:00 Piperacillin Sod/ Tazobactam Sod 3.375 gm/Sodium Chloride 50 ml @ 100 mls/hr Q6HRS IV Last administered on 12/10/16 05:59; Start 12/09/16 at 12:00 Norepinephrine Bitartrate 16 mg/ Sodium Chloride 266 ml @ 0.99 mls/hr CONT PRN IV SEE I/O RECORD Last administered on 12/09/16 20:36; Start 12/09/16 at 12 :00 Doxycycline Hyclate/Dextrose 100 ml @ 50 mls/hr Q12HR IV Last administered on 12/10/16 08:13; Start 12/09/16 at 13:00 Atropine Sulfate 0.5 mg STK-MED ONCE .ROUTE ; Start 12/08/16 at 10:30; Stop at 13:18; Status DC Epinephrine HCl 3 mg STK-MED ONCE .ROUTE ; Start 12/08/16 at 10:30; Stop at 13:18; Status DC Active Scripts Active Ultram (Tramadol Hcl) 50 Mg Tablet 50 Mg PO Q6H PRN Robaxin (Methocarbamol) 500 Mg Tablet 500 Mg PO QID Reported Percocet 5-325 Mg Tablet (Oxycodone/Acetaminophen) 1 Each Tablet 1-2 Tab PO Q4HRS Vitals/I & O Vital Sign - Last 24 Hours 12/09/16 12/09/16 12/09/16 12/09/16 10:00 10:00 10:00 11:00 Pulse 128 128 128 Resp 35 B/P 100/70 100/70 88/60 Pulse Ox 100 91 O2 Delivery Ventilator Ventilator 12/09/16 12/09/16 12/09/16 12/09/16 11:00 12:00 12:00 12:00 Pulse 128 124 124 Resp 30 31 B/P 88/60 88/60 88/60 Pulse Ox 98 100 O2 Delivery Ventilator Ventilator Mechanical Ventilator O2 Flow Rate 4.0 12/09/16 12/09/16 12/09/16 12/09/16 12:21 13:00 13:00 14:00 Pulse 126 126 124 Resp 30 B/P 88/62 88/62 82/58 Pulse Ox 100 100 O2 Delivery Ventilator Ventilator 12/09/16 12/09/16 12/09/16 12/09/16 14:00 14:15 15:00 15:00 Temp 101.8 102.2 101.8 102.2 Pulse 123 118 120 Resp 30 30 B/P 82/58 72/50 72/50 Pulse Ox 100 100 100 O2 Delivery Ventilator Ventilator Ventilator 12/09/16 12/09/16 12/09/16 12/09/16 16:00 16:00 16:11 17:00 Temp 102.2 102.2 102.2 102.2 Pulse 120 118 Resp 26 28 B/P 98/68 98/66 Pulse Ox 100 100 100 O2 Delivery Ventilator Mechanical Ventilator Ventilator Ventilator O2 Flow Rate 4.0 12/09/16 12/09/16 12/09/16 12/09/16 17:00 18:00 18:00 19:00 Pulse 118 116 116 116 Resp 28 B/P 98/66 104/64 104/64 112/66 Pulse Ox 100 O2 Delivery Ventilator 12/09/16 12/09/16 12/09/16 12/09/16 19:00 19:39 19:45 20:00 Pulse 116 Resp 25 B/P 112/66 93/62 Pulse Ox 100 100 O2 Delivery Ventilator Ventilator Mechanical Ventilator 12/09/16 12/09/16 12/09/16 12/09/16 20:00 20:00 21:00 21:00 Temp 100.7 100.7 Pulse 112 112 114 114 Resp 28 23 B/P 108/68 108/68 120/74 120/74 Pulse Ox 100 100 O2 Delivery Ventilator Ventilator 12/09/16 12/09/16 12/09/16 12/09/16 21:35 21:35 22:00 22:00 Pulse 116 116 Resp 30 B/P 120/74 121/76 121/76 Pulse Ox 100 100 O2 Delivery Ventilator Ventilator 12/09/16 12/09/16 12/09/16 12/09/16 22:15 22:39 23:00 23:00 Pulse 116 116 Resp 31 B/P 112/70 110/71 112/74 112/74 Pulse Ox 99 O2 Delivery Ventilator 12/09/16 12/09/16 12/09/16 12/10/16 23:15 23:23 23:37 00:00 Resp 29 B/P 116/68 Pulse Ox 99 100 O2 Delivery Ventilator Ventilator Mechanical Ventilator 12/10/16 12/10/16 12/10/16 12/10/16 00:00 00:00 01:00 01:00 Temp 101.1 101.1 Pulse 108 108 108 108 Resp 26 24 B/P 90/50 90/50 117/64 117/64 Pulse Ox 98 100 O2 Delivery Ventilator Ventilator 12/10/16 12/10/16 12/10/16 12/10/16 01:15 02:00 02:00 02:14 Pulse 106 106 Resp 22 B/P 114/64 109/62 109/62 Pulse Ox 99 100 O2 Delivery Ventilator Ventilator 12/10/16 12/10/16 12/10/16 12/10/16 02:15 03:00 03:00 04:00 Pulse 103 103 Resp 22 B/P 90/54 99/55 99/55 Pulse Ox 96 O2 Delivery Ventilator Mechanical Ventilator 12/10/16 12/10/16 12/10/16 12/10/16 04:00 04:00 04:51 05:00 Temp 99.0 99.0 Pulse 102 102 104 Resp 22 B/P 102/57 102/57 117/63 Pulse Ox 97 94 O2 Delivery Ventilator Ventilator 12/10/16 12/10/16 12/10/16 12/10/16 05:00 05:20 06:00 06:00 Pulse 104 102 102 Resp 22 22 B/P 117/63 109/60 102/52 102/52 Pulse Ox 96 95 O2 Delivery Ventilator Ventilator 12/10/16 12/10/16 12/10/16 12/10/16 07:00 07:00 08:15 08:19 Pulse 102 101 Resp 22 22 B/P 120/67 103/53 Pulse Ox 99 100 O2 Delivery Ventilator Ventilator Intake and Output 12/09/16 12/09/16 12/10/16 15:00 23:00 07:00 Intake Total 803 ml 2826 ml 1957 ml Output Total 305 ml 570 ml 655 ml Balance 498 ml 2256 ml 1302 ml OSCAR SANTA MD Dec 10, 2016 09:58
[2016-12-10] MEDS ORDERED: CALCIUM GLUCONATE 1,000 MG/10 ML VIAL IVP ONE (10:00)
[2016-12-10] MEDS ORDERED: MAGNESIUM SULFATE 2GM 50 ML IV ONE (12:00)
[2016-12-10] MEDS ORDERED: CALCIUM GLUCONATE 1,000 MG in IV NORMAL SALINE 100ML 100 ML IV ONE (12:00)
[2016-12-10] MEDS ORDERED: MAGNESIUM SULFATE 2GM 50 ML IV PRN (12:15)
[2016-12-10] MEDS ORDERED: AA 3%/ELECTROLYTE-TPN SOLN/GLY 1,000 ML IV SCH (12:30)
[2016-12-10 12:44] LABS: HCO3 ABG 25 mmol/L (21-28); PCO2 ABG 42 mmHg (35-46); PO2 ABG 65 mmHg (75-108); SAT O2 ABG 93 % (92-99)
[2016-12-10 12:45] LABS: FIO2 ABG 50
[2016-12-10] MEDS ORDERED: CALCIUM GLUCONATE 1,000 MG/10 ML VIAL IVP SCH (14:00)
[2016-12-10] MEDS ORDERED: ALBUMIN HUMAN 25% 100 ML IV SCH (14:00)
[2016-12-10 18:13] LABS: UR PROTEIN RD 145.5 mg/dL (Not Estab.)
[2016-12-10] MEDS: FAMOTIDINE 20 MG/2 ML VIAL IVP SCH (20:25)
[2016-12-11] VITALS (24 sets, daily range): BP systolic 93–124; BP diastolic 52–69
[2016-12-11] MEDS: PIPERACILLIN/TAZOBACTAM 3.375 GM in IV NORMAL SALINE 50ML 50 ML IV SCH ×2 (00:12→06:01)
[2016-12-11 06:16] LABS: BASO # 0.1 x10^3/uL (0.0-0.2); BASO % 0 % (0-3); EOS % 0 % (0-3); HEMATOCRIT 29.2 % (39.0-53.0); LYMPH # 0.7 x10^3/uL (1.0-4.8); LYMPH % 3 % (24-48); MEAN CORPUSCULAR HEMOGLOBIN 30 pg (25-35); MEAN CORPUSCULAR HGB CONC 34 g/dL (31-37); MEAN CORPUSCULAR VOLUME 89 fL (79-100); MONO % 7 % (0-9); NEUT % 90 % (31-73); PLATELET COUNT 314 x10^3/uL (140-400); RED BLOOD COUNT 3.28 x10^6/uL (4.30-5.70); WHITE BLOOD COUNT 21.5 x10^3/uL (4.0-11.0)
[2016-12-11 07:10] LABS: ALBUMIN 1.1 g/dL (3.4-5.0); CALCIUM 6.1 mg/dL (8.5-10.1); CREATININE 3.2 mg/dL (0.7-1.3); GFR 25.1; PHOSPHORUS 2.1 mg/dL (2.6-4.7); POTASSIUM 3.2 mmol/L (3.5-5.1)
[2016-12-11] MEDS: MIDAZOLAM PREMIX 100 ML IV PRN (07:16)
--- NOTE | 2016-12-11 07:47 | PDOC ---
Infectious Disease Note Subjective Subjective Sedated. + fevers. Tmax 100.2 but fever curve better BP stable. Off pressors Tube feedings ROS ROS Unobtainable Vital Sign Vital Signs Vital Signs Date Time Temp Pulse Resp B/P Pulse Ox O2 Delivery O2 Flow Rate FiO2 12/11/16 07:00 95 21 94/54 100 Ventilator 12/11/16 04:00 99.2 99.2 Physical Exam PHYSICAL EXAM GENERAL: Intubated and sedated HEENT: Pupils small. ETT. OGT LUNGS: Clear. vent. HEART: S1S2, no gallop, no murmur. 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 (12/09). clean Peripheral IV Labs Lab Laboratory Tests Test 12/10/16 08:15 12/10/16 08:30 12/10/16 08:36 12/10/16 12:20 O2 Saturation 90% (92-99) 93% (92-99) Arterial Blood pH 7.40 (7.35-7.45) 7.40 (7.35-7.45) Arterial Blood pCO2 at Patient Temp 40mmHg (35-46) 42mmHg (35-46) Arterial Blood pO2 at Patient Temp 59mmHg (75-108) 65mmHg (75-108) Arterial Blood HCO3 24mmol/L (21-28) 25mmol/L (21-28) Arterial Blood Base Excess 0mmol/L (-3-3) 1mmol/L (-3-3) FiO2 50 50 Sodium Level 139mmol/L (136-145) Potassium Level 3.5mmol/L (3.5-5.1) Chloride Level 104mmol/L (98-107) Carbon Dioxide Level 25mmol/L (21-32) Anion Gap 10 (6-14) Blood Urea Nitrogen 37mg/dL (8-26) Creatinine 2.9mg/dL (0.7-1.3) Estimated GFR (Cockcroft-Gault) 28.1 BUN/Creatinine Ratio 13 (6-20) Glucose Level 134mg/dL (70-99) Calcium Level 6.0mg/dL (8.5-10.1) Total Bilirubin 0.2mg/dL (0.2-1.0) Aspartate Amino Transf (AST/SGOT) 148U/L (15-37) Alanine Aminotransferase (ALT/SGPT) 52U/L (16-63) Alkaline Phosphatase 28U/L (46-116) Total Protein 4.7g/dL (6.4-8.2) Albumin 1.2g/dL (3.4-5.0) Albumin/Globulin Ratio 0.3 (1.0-1.7) Lipase 147U/L (73-393) Magnesium Level 1.6mg/dL (1.8-2.4) Test 12/10/16 12:30 12/11/16 06:10 Urine Protein 145.5mg/dL (Not Estab.) Urine Creatinine 82.0mg/dL (Not Estab.) Urine Protein/Creatinine Ratio 1774mg/g creat (0-200) White Blood Count 21.5x10^3/uL (4.0-11.0) Red Blood Count 3.28x10^6/uL (4.30-5.70) Hemoglobin 10.0g/dL (13.0-17.5) Hematocrit 29.2% (39.0-53.0) Mean Corpuscular Volume 89fL (79-100) Mean Corpuscular Hemoglobin 30pg (25-35) Mean Corpuscular Hemoglobin Concent 34g/dL (31-37) Red Cell Distribution Width 14.0% (11.5-14.5) Platelet Count 314x10^3/uL (140-400) Neutrophils (%) (Auto) 90% (31-73) Lymphocytes (%) (Auto) 3% (24-48) Monocytes (%) (Auto) 7% (0-9) Eosinophils (%) (Auto) 0% (0-3) Basophils (%) (Auto) 0% (0-3) Neutrophils # (Auto) 19.2x10^3uL (1.8-7.7) Lymphocytes # (Auto) 0.7x10^3/uL (1.0-4.8) Monocytes # (Auto) 1.5x10^3/uL (0.0-1.1) Eosinophils # (Auto) 0.0x10^3/uL (0.0-0.7) Basophils # (Auto) 0.1x10^3/uL (0.0-0.2) Sodium Level 141mmol/L (136-145) Potassium Level 3.2mmol/L (3.5-5.1) Chloride Level 107mmol/L (98-107) Carbon Dioxide Level 22mmol/L (21-32) Anion Gap 12 (6-14) Blood Urea Nitrogen 42mg/dL (8-26) Creatinine 3.2mg/dL (0.7-1.3) Estimated GFR (Cockcroft-Gault) 25.1 Glucose Level 108mg/dL (70-99) Calcium Level 6.1mg/dL (8.5-10.1) Phosphorus Level 2.1mg/dL (2.6-4.7) Magnesium Level 2.3mg/dL (1.8-2.4) Creatine Kinase 2386U/L (39-308) Albumin 1.1g/dL (3.4-5.0) Objective Assessment Sepsis with lactic acidosis. POA - off Pressors Fever - curve better Leukocytosis - increase Pneumonia -Influenza screen neg -Strep antigen & legionella Ag neg Acute encephalopathy Acute respiratory failure s/p intubation s/p PEA cardiopulmonary arrest -TTE EF 30-35%. -No veg noted Hypotension on vasopressor support x 2. Now off ASHLEY - Renal following - worse Polysubstance abuse Diarrhea. c. diff neg. stool cx neg Plan Plan of Care Adjust Zosyn with worsening renal failure Cont doxy Dose Zyvox with increase WBC/worsening renal failure (avoid vanc) Would D/c art -line One time dose vanc 12/08 Rocephin and azithromycin 12/07 Monitor labs/temp Cultures NGTD Supportive care Critically ill LILIANA SEVERINO MD Dec 11, 2016 07:47
[2016-12-11 08:25] LABS: HCO3 ABG 23 mmol/L (21-28); PCO2 ABG 33 mmHg (35-46); PH ABG 7.47 (7.35-7.45); PO2 ABG 61 mmHg (75-108); SAT O2 ABG 91 % (92-99)
[2016-12-11 08:27] LABS: FIO2 ABG 35
[2016-12-11] MEDS: BUDESONIDE 0.5 MG/2 ML NEBU NEB SCH ×2 (08:38→19:10)
[2016-12-11] MEDS: IPRATROPIUM BROMIDE 0.5 MG/2.5 ML NEBU. NEB SCH ×4 (08:38→19:10)
[2016-12-11] MEDS: FENTANYL STANDARD PCA 30 ML IV PRN ×2 (08:45→19:41)
--- NOTE | 2016-12-11 08:46 | RAD ---
Portable chest, 12/11/2016: History: Respiratory failure Comparison is made to yesterday's study. The ET tube tip lies well above the ocrey. An NG tube extends into the stomach. A right PICC extends into the superior vena cava. The heart is within normal limits in size. Patchy bilateral pulmonary infiltrates appear unchanged. There is underlying emphysema in the right upper lobe. No definite pleural fluid is seen. IMPRESSION: 1. Various tubes and catheters remain in place in satisfactory positions. 2. Unchanged moderate patchy bilateral pulmonary infiltrates.
[2016-12-11] MEDS: ASPIRIN 81 MG TAB.CHEW PO SCH (08:47)
[2016-12-11] MEDS: CHLORHEXIDINE 0.12% 15 ML MOUTHWASH. MM SCH (08:47)
[2016-12-11] MEDS: DOXYCYCLINE HYCLATE 100 MG in IV DEXTROSE 5% 100 ML IV SCH (08:48)
--- NOTE | 2016-12-11 08:57 | PDOC ---
SUBJECTIVE ROS ASHLEY Remains intubated, sedated OBJECTIVE Vital Signs Vital Signs Date Time Temp Pulse Resp B/P Pulse Ox O2 Delivery O2 Flow Rate FiO2 12/11/16 08:45 21 12/11/16 08:15 100 Ventilator 12/11/16 08:00 99.0 93 93/52 99.0 I & 0 Intake and Output 12/11/16 07:00 Intake Total 2126 ml Output Total 1145 ml Balance 981 ml Intake Oral 128 ml IV Total 1219 ml Tube Feeding 345 ml Other 434 ml Output Urine Total 1145 ml # Bowel Movements 3 PHYSICAL EXAM Physical Exam GEN: Intubated on the Vent, In no distress EYES: Vision Unchanged, Conjunctiva Normal EN: No EN Drainage, Mucous Membranes moist NECK: no JVD, no JVP, Supple, no Thyromegaly CVS: S1S2, no Murmur, No Gallop, No Rub,no Edema RESP: rare Rales, no Rhonchi,no Acc. Muscle Use GI: BS + ve, NO Bruit, Non Tender, Non Distended : no CVA tenderness, no Suprapubic Tenderness DIAGNOSIS/ASSESSMENT Assessment & Plan ARF/ ATN post code - Creat is rel stable. ^CK may be contributing (await U. Myoglobin) Current fluid and E-lyte status does not necessitate emergent need for dialysis. Will re-evaluate for dialysis in the am ? Rhabdo - await U. Bob. ^CK due to AMI cannot be ruled out Resp Failure - defer to Pulm ? of ARDS raised on CXR reading. Will be conservative with IVF and Use colloids for now Low K and PHos - replace as ordered Sev. Malnutrition - TF for now Problems: COMMENT/RELEVANT DATA Meds Current Medications Medications (Trade) Dose Ordered Sig/Flakito Start Time Stop Time Status Last Admin Dose Admin Acetaminophen (Tylenol) 500 mg PRN Q6HRS PRN 12/07/16 16:30 12/09/16 15:04 500 MG Albumin Human (Albuminar) 100 ml @ 100 mls/hr TID 12/10/16 14:00 12/10/16 14:00 DC Albuterol/ Ipratropium (Duoneb) 3 ml RTQID 12/08/16 12:30 12/09/16 05:17 DC 12/08/16 19:44 3 ML Alprazolam (Xanax) 0.5 mg 1X ONCE 12/08/16 08:45 12/08/16 08:46 DC 12/08/16 08:40 0.5 MG Amino Acids/ Glycerin/ Electrolytes 1,000 ml @ 80 mls/hr [id number] 12/10/16 12:30 12/10/16 12:30 DC Aspirin (Jada Aspirin) 325 mg [id number] 12/09/16 08:00 12/09/16 08:00 DC Aspirin (Children'S Aspirin) 81 mg [id number] 12/09/16 08:00 12/11/16 08:47 81 MG Aspirin 300 mg 300 mg 1X ONCE 12/08/16 10:45 12/08/16 10:46 DC Atropine Sulfate 0.5 mg STK-MED ONCE 12/08/16 10:30 12/09/16 13:18 DC Azithromycin 250 ml @ 250 mls/hr 1X ONCE 12/07/16 15:15 12/07/16 16:14 DC 12/07/16 15:48 250 MLS/HR Budesonide 0.5 mg 0.5 mg RTBID 12/08/16 12:30 12/11/16 08:38 0.5 MG Calcium Gluconate 1000 mg 1,000 mg 1X ONCE 12/10/16 10:00 12/10/16 10:01 UNV Calcium Gluconate 1000 mg/Sodium Chloride 110 ml @ 220 mls/hr 1X ONCE 12/10/16 12:00 12/10/16 12:29 DC 12/10/16 11:36 220 MLS/HR Calcium Gluconate 2000 mg 2,000 mg TID 12/10/16 14:00 12/10/16 14:00 DC Ceftriaxone Sodium 1 gm/ Sodium Chloride 50 ml @ 100 mls/hr Q24H 12/08/16 15:30 12/08/16 15:30 DC Ceftriaxone Sodium (Rocephin 1gm Ivpb For Omni) 50 ml @ 100 mls/hr 1X ONCE 12/07/16 15:15 12/07/16 15:44 DC 12/07/16 15:29 100 MLS/HR Chlorhexidine Gluconate 15 ml 15 ml BID 12/09/16 09:00 12/11/16 08:47 15 ML Dopamine HCl/ Dextrose 250 ml @ 10.084 mls/ hr CONT PRN 12/08/16 10:15 12/08/16 10:00 20.167 MLS/HR Doxycycline Hyclate/Dextrose 100 ml @ 50 mls/hr Q12HR 12/09/16 13:00 12/11/16 08:48 50 MLS/HR Epinephrine HCl 3 mg STK-MED ONCE 12/08/16 10:30 12/09/16 13:18 DC Etomidate (Amidate) 20 mg STK-MED ONCE 12/08/16 13:00 12/08/16 13:01 DC Famotidine (Pepcid) 20 mg QHS 12/08/16 21:00 12/10/16 20:25 20 MG Fentanyl Citrate (Fentanyl 2ml Vial) 50 mcg PRN Q1HR PRN 12/09/16 05:15 Fentanyl Citrate (Fentanyl 600 Mcg/30 ml RADIATION ONCOLOGY NURSE) 30 ml @ 0 mls/hr CONT PRN 12/09/16 05:15 12/11/16 08:45 50 MLS/HR Heparin Sodium (Porcine) 1,350 unit PRN Q6HRS PRN 12/08/16 12:45 12/09/16 05:47 1,350 UNIT Heparin Sodium (Porcine) 4000 unit 4,000 unit 1X ONCE 12/08/16 09:30 12/08/16 14:21 DC Heparin Sodium (Porcine) 5000 unit 5,000 unit Q8HRS 12/08/16 14:00 12/08/16 14:00 DC Heparin Sodium/ Dextrose 500 ml @ 0 mls/hr CONT PRN 12/08/16 12:45 12/09/16 13:11 0 MLS/HR Influenza Virus Vaccine Quadrival (Fluarix Quad [id number] Syringe) 0.5 ml ONCE ONCE 12/08/16 09:00 12/08/16 09:01 DC Info (Anti-Coagulation Monitoring By Pharmacy) 1 each PRN DAILY PRN 12/11/16 08:15 Info (Do NOT chart on this placeholder) 1 each 1X ONCE 12/07/16 22:45 12/07/16 22:46 UNV Ipratropium Beasley (Atrovent) 0.5 mg RTQID 12/09/16 08:00 12/11/16 08:38 0.5 MG Ketorolac Tromethamine 30 mg 30 mg 1X ONCE 12/07/16 14:30 12/07/16 14:31 DC 12/07/16 14:34 30 MG Labetalol HCl (Normodyne) 10 mg 1X ONCE 12/08/16 08:30 12/08/16 08:35 DC 12/08/16 08:56 10 MG Linezolid (Zyvox Premix) 300 ml @ 300 mls/hr Q12HR 12/11/16 09:00 12/11/16 08:47 300 MLS/HR Magnesium Sulfate/ Dextrose 50 ml @ 25 mls/hr PRN DAILY PRN 12/10/16 12:15 Methocarbamol (Robaxin) 500 mg QID 12/07/16 17:00 12/08/16 10:03 DC 12/07/16 21:19 500 MG Midazolam HCl 100 ml @ 0 mls/hr CONT PRN 12/08/16 10:30 12/11/16 07:16 3 MLS/HR Morphine Sulfate 2 mg PRN Q2HR PRN 12/07/16 16:30 12/08/16 05:28 2 MG Nicotine (Nicoderm Cq 21mg) 1 patch PRN DAILY PRN 12/07/16 16:30 Norepinephrine Bitartrate 16 mg/ Sodium Chloride 266 ml @ 0.99 mls/hr CONT PRN 12/09/16 12:00 12/09/16 20:36 29.92 MLS/HR Norepinephrine Bitartrate 8 mg/ Sodium Chloride 258 ml @ 0 mls/hr CONT PRN 12/08/16 10:15 12/09/16 11:47 DC 12/09/16 08:46 58.05 MLS/HR Ondansetron HCl (Zofran) 4 mg PRN Q6HRS PRN 12/07/16 16:30 Oxycodone/ Acetaminophen (Percocet 5/325) 1 tab PRN Q4HRS PRN 12/07/16 16:30 Phenylephrine HCl 1 mg STK-MED ONCE 12/08/16 10:25 12/08/16 10:26 DC Piperacillin Sod/ Tazobactam Sod 2.25 gm/Sodium Chloride 50 ml @ 100 mls/hr Q6HRS 12/11/16 12:00 Piperacillin Sod/ Tazobactam Sod 3.375 gm/Sodium Chloride 50 ml @ 100 mls/hr Q6HRS 12/09/16 12:00 12/11/16 07:47 DC 12/11/16 06:01 100 MLS/HR Pneumococcal Polyvalent Vaccine (Do NOT chart on this placeholder) 1 each 1X ONCE 12/07/16 22:45 12/07/16 22:46 UNV Pneumococcal Polyvalent Vaccine (Pneumovax 23) 0.5 ml ONCE ONCE 12/08/16 09:00 12/08/16 09:01 DC Propofol (Diprivan) 100 ml @ 0 mls/hr CONT PRN 12/08/16 10:00 12/08/16 23:49 3.227 MLS/HR Sodium Bicarbonate 150 meq/Dextrose 1,150 ml @ 100 mls/hr [id number] 12/09/16 09:00 12/10/16 12:14 DC 12/10/16 09:34 100 MLS/HR Sodium Bicarbonate/ Sodium Chloride (Iv Sodium Chloride 0.45%) 1,050 ml @ 200 mls/hr [id number] 12/08/16 10:30 12/09/16 08:28 DC 12/09/16 05:11 200 MLS/HR Sodium Chloride 1,000 ml @ 1,000 mls/hr 1X ONCE 12/08/16 12:15 12/08/16 13:14 DC 12/08/16 11:00 1,000 MLS/HR Sodium Chloride (Iv Sodium Chloride 0.9% 1000ml Bag) 1,000 ml @ 1,000 mls/hr 1X ONCE 12/08/16 11:45 12/08/16 12:44 DC 12/08/16 10:00 1,000 MLS/HR Succinylcholine Chloride 200 mg 200 mg STK-MED ONCE 12/08/16 13:00 12/08/16 13:01 DC Tramadol HCl (Ultram) 50 mg PRN Q6HRS PRN 12/07/16 16:30 12/07/16 17:11 50 MG Vancomycin HCl 1 gm/Sodium Chloride 250 ml @ 250 mls/hr 1X ONCE 12/08/16 14:00 12/08/16 14:59 DC 12/08/16 14:21 250 MLS/HR Zolpidem Tartrate (Ambien) 5 mg PRN QHS PRN 12/07/16 16:30 12/08/16 10:03 DC 12/08/16 01:06 5 MG Lab Laboratory Tests Test 12/10/16 12:20 12/10/16 12:30 12/11/16 06:10 12/11/16 08:15 O2 Saturation 93% (92-99) 91% (92-99) Arterial Blood pH 7.40 (7.35-7.45) 7.47 (7.35-7.45) Arterial Blood pCO2 at Patient Temp 42mmHg (35-46) 33mmHg (35-46) Arterial Blood pO2 at Patient Temp 65mmHg (75-108) 61mmHg (75-108) Arterial Blood HCO3 25mmol/L (21-28) 23mmol/L (21-28) Arterial Blood Base Excess 1mmol/L (-3-3) 0mmol/L (-3-3) FiO2 50 35 Urine Protein 145.5mg/dL (Not Estab.) Urine Creatinine 82.0mg/dL (Not Estab.) Urine Protein/Creatinine Ratio 1774mg/g creat (0-200) White Blood Count 21.5x10^3/uL (4.0-11.0) Red Blood Count 3.28x10^6/uL (4.30-5.70) Hemoglobin 10.0g/dL (13.0-17.5) Hematocrit 29.2% (39.0-53.0) Mean Corpuscular Volume 89fL (79-100) Mean Corpuscular Hemoglobin 30pg (25-35) Mean Corpuscular Hemoglobin Concent 34g/dL (31-37) Red Cell Distribution Width 14.0% (11.5-14.5) Platelet Count 314x10^3/uL (140-400) Neutrophils (%) (Auto) 90% (31-73) Lymphocytes (%) (Auto) 3% (24-48) Monocytes (%) (Auto) 7% (0-9) Eosinophils (%) (Auto) 0% (0-3) Basophils (%) (Auto) 0% (0-3) Neutrophils # (Auto) 19.2x10^3uL (1.8-7.7) Lymphocytes # (Auto) 0.7x10^3/uL (1.0-4.8) Monocytes # (Auto) 1.5x10^3/uL (0.0-1.1) Eosinophils # (Auto) 0.0x10^3/uL (0.0-0.7) Basophils # (Auto) 0.1x10^3/uL (0.0-0.2) Sodium Level 141mmol/L (136-145) Potassium Level 3.2mmol/L (3.5-5.1) Chloride Level 107mmol/L (98-107) Carbon Dioxide Level 22mmol/L (21-32) Anion Gap 12 (6-14) Blood Urea Nitrogen 42mg/dL (8-26) Creatinine 3.2mg/dL (0.7-1.3) Estimated GFR (Cockcroft-Gault) 25.1 Glucose Level 108mg/dL (70-99) Calcium Level 6.1mg/dL (8.5-10.1) Phosphorus Level 2.1mg/dL (2.6-4.7) Magnesium Level 2.3mg/dL (1.8-2.4) Creatine Kinase 2386U/L (39-308) Albumin 1.1g/dL (3.4-5.0) KEVIN BRANDON MD Dec 11, 2016 08:57
[2016-12-11] MEDS: ANTI-COAG MONITOR BY PHARMACY. MC PRN (09:14)
[2016-12-11] MEDS ORDERED: FUROSEMIDE 20 MG/2 ML VIAL IVP ONE (10:00)
--- NOTE | 2016-12-11 10:00 | PDOC ---
PULMONARY PROGRESS NOTES Subjective on vent ,on sedation, off levo and dopamine, marginal oxygenation Vitals Vital Signs Date Time Temp Pulse Resp B/P Pulse Ox O2 Delivery O2 Flow Rate FiO2 12/11/16 09:00 92 22 106/60 100 Ventilator 12/11/16 08:00 99.0 99.0 Comments ros as mentioned as above discussed w rn, off sedation agitated. HEENT: Other (nc at perrl, orally intubated) Lungs: Other (decrease bs) Cardiovascular: S1, S2 Abdomen: Soft, Non-tender, Other (no mass) Extremities: No Edema Skin: Warm Labs Laboratory Tests Test 12/09/16 11:30 12/09/16 17:35 12/09/16 17:40 12/10/16 00:20 Heparin Anti-Xa Act, Unfractionated 0.60IU/mL (0.30-0.70) 0.65IU/mL (0.30-0.70) 0.74IU/mL (0.30-0.70) Glucose (Fingerstick) 174mg/dL (70-99) Test 12/10/16 05:30 12/10/16 08:15 12/10/16 08:30 12/10/16 08:36 White Blood Count 19.8x10^3/uL (4.0-11.0) Red Blood Count 3.69x10^6/uL (4.30-5.70) Hemoglobin 11.0g/dL (13.0-17.5) Hematocrit 33.5% (39.0-53.0) Mean Corpuscular Volume 91fL (79-100) Mean Corpuscular Hemoglobin 30pg (25-35) Mean Corpuscular Hemoglobin Concent 33g/dL (31-37) Red Cell Distribution Width 14.3% (11.5-14.5) Platelet Count 270x10^3/uL (140-400) Neutrophils (%) (Auto) 89% (31-73) Lymphocytes (%) (Auto) 4% (24-48) Monocytes (%) (Auto) 7% (0-9) Eosinophils (%) (Auto) 0% (0-3) Basophils (%) (Auto) 0% (0-3) Neutrophils # (Auto) 17.6x10^3uL (1.8-7.7) Lymphocytes # (Auto) 0.8x10^3/uL (1.0-4.8) Monocytes # (Auto) 1.3x10^3/uL (0.0-1.1) Eosinophils # (Auto) 0.0x10^3/uL (0.0-0.7) Basophils # (Auto) 0.1x10^3/uL (0.0-0.2) Heparin Anti-Xa Act, Unfractionated 0.60IU/mL (0.30-0.70) O2 Saturation 90% (92-99) Arterial Blood pH 7.40 (7.35-7.45) Arterial Blood pCO2 at Patient Temp 40mmHg (35-46) Arterial Blood pO2 at Patient Temp 59mmHg (75-108) Arterial Blood HCO3 24mmol/L (21-28) Arterial Blood Base Excess 0mmol/L (-3-3) FiO2 50 Sodium Level 139mmol/L (136-145) Potassium Level 3.5mmol/L (3.5-5.1) Chloride Level 104mmol/L (98-107) Carbon Dioxide Level 25mmol/L (21-32) Anion Gap 10 (6-14) Blood Urea Nitrogen 37mg/dL (8-26) Creatinine 2.9mg/dL (0.7-1.3) Estimated GFR (Cockcroft-Gault) 28.1 BUN/Creatinine Ratio 13 (6-20) Glucose Level 134mg/dL (70-99) Calcium Level 6.0mg/dL (8.5-10.1) Total Bilirubin 0.2mg/dL (0.2-1.0) Aspartate Amino Transf (AST/SGOT) 148U/L (15-37) Alanine Aminotransferase (ALT/SGPT) 52U/L (16-63) Alkaline Phosphatase 28U/L (46-116) Total Protein 4.7g/dL (6.4-8.2) Albumin 1.2g/dL (3.4-5.0) Albumin/Globulin Ratio 0.3 (1.0-1.7) Lipase 147U/L (73-393) Magnesium Level 1.6mg/dL (1.8-2.4) Test 12/10/16 12:20 1/15/17 12:30 12/11/16 06:10 12/11/16 08:15 O2 Saturation 93% (92-99) 91% (92-99) Arterial Blood pH 7.40 (7.35-7.45) 7.47 (7.35-7.45) Arterial Blood pCO2 at Patient Temp 42mmHg (35-46) 33mmHg (35-46) Arterial Blood pO2 at Patient Temp 65mmHg (75-108) 61mmHg (75-108) Arterial Blood HCO3 25mmol/L (21-28) 23mmol/L (21-28) Arterial Blood Base Excess 1mmol/L (-3-3) 0mmol/L (-3-3) FiO2 50 35 Urine Protein 145.5mg/dL (Not Estab.) Urine Creatinine 82.0mg/dL (Not Estab.) Urine Protein/Creatinine Ratio 1774mg/g creat (0-200) White Blood Count 21.5x10^3/uL (4.0-11.0) Red Blood Count 3.28x10^6/uL (4.30-5.70) Hemoglobin 10.0g/dL (13.0-17.5) Hematocrit 29.2% (39.0-53.0) Mean Corpuscular Volume 89fL (79-100) Mean Corpuscular Hemoglobin 30pg (25-35) Mean Corpuscular Hemoglobin Concent 34g/dL (31-37) Red Cell Distribution Width 14.0% (11.5-14.5) Platelet Count 314x10^3/uL (140-400) Neutrophils (%) (Auto) 90% (31-73) Lymphocytes (%) (Auto) 3% (24-48) Monocytes (%) (Auto) 7% (0-9) Eosinophils (%) (Auto) 0% (0-3) Basophils (%) (Auto) 0% (0-3) Neutrophils # (Auto) 19.2x10^3uL (1.8-7.7) Lymphocytes # (Auto) 0.7x10^3/uL (1.0-4.8) Monocytes # (Auto) 1.5x10^3/uL (0.0-1.1) Eosinophils # (Auto) 0.0x10^3/uL (0.0-0.7) Basophils # (Auto) 0.1x10^3/uL (0.0-0.2) Sodium Level 141mmol/L (136-145) Potassium Level 3.2mmol/L (3.5-5.1) Chloride Level 107mmol/L (98-107) Carbon Dioxide Level 22mmol/L (21-32) Anion Gap 12 (6-14) Blood Urea Nitrogen 42mg/dL (8-26) Creatinine 3.2mg/dL (0.7-1.3) Estimated GFR (Cockcroft-Gault) 25.1 Glucose Level 108mg/dL (70-99) Calcium Level 6.1mg/dL (8.5-10.1) Phosphorus Level 2.1mg/dL (2.6-4.7) Magnesium Level 2.3mg/dL (1.8-2.4) Creatine Kinase 2386U/L (39-308) Albumin 1.1g/dL (3.4-5.0) Laboratory Tests Test 12/10/16 12:20 12/10/16 12:30 12/11/16 06:10 12/11/16 08:15 O2 Saturation 93% (92-99) 91% (92-99) Arterial Blood pH 7.40 (7.35-7.45) 7.47 (7.35-7.45) Arterial Blood pCO2 at Patient Temp 42mmHg (35-46) 33mmHg (35-46) Arterial Blood pO2 at Patient Temp 65mmHg (75-108) 61mmHg (75-108) Arterial Blood HCO3 25mmol/L (21-28) 23mmol/L (21-28) Arterial Blood Base Excess 1mmol/L (-3-3) 0mmol/L (-3-3) FiO2 50 35 Urine Protein 145.5mg/dL (Not Estab.) Urine Creatinine 82.0mg/dL (Not Estab.) Urine Protein/Creatinine Ratio 1774mg/g creat (0-200) White Blood Count 21.5x10^3/uL (4.0-11.0) Red Blood Count 3.28x10^6/uL (4.30-5.70) Hemoglobin 10.0g/dL (13.0-17.5) Hematocrit 29.2% (39.0-53.0) Mean Corpuscular Volume 89fL (79-100) Mean Corpuscular Hemoglobin 30pg (25-35) Mean Corpuscular Hemoglobin Concent 34g/dL (31-37) Red Cell Distribution Width 14.0% (11.5-14.5) Platelet Count 314x10^3/uL (140-400) Neutrophils (%) (Auto) 90% (31-73) Lymphocytes (%) (Auto) 3% (24-48) Monocytes (%) (Auto) 7% (0-9) Eosinophils (%) (Auto) 0% (0-3) Basophils (%) (Auto) 0% (0-3) Neutrophils # (Auto) 19.2x10^3uL (1.8-7.7) Lymphocytes # (Auto) 0.7x10^3/uL (1.0-4.8) Monocytes # (Auto) 1.5x10^3/uL (0.0-1.1) Eosinophils # (Auto) 0.0x10^3/uL (0.0-0.7) Basophils # (Auto) 0.1x10^3/uL (0.0-0.2) Sodium Level 141mmol/L (136-145) Potassium Level 3.2mmol/L (3.5-5.1) Chloride Level 107mmol/L (98-107) Carbon Dioxide Level 22mmol/L (21-32) Anion Gap 12 (6-14) Blood Urea Nitrogen 42mg/dL (8-26) Creatinine 3.2mg/dL (0.7-1.3) Estimated GFR (Cockcroft-Gault) 25.1 Glucose Level 108mg/dL (70-99) Calcium Level 6.1mg/dL (8.5-10.1) Phosphorus Level 2.1mg/dL (2.6-4.7) Magnesium Level 2.3mg/dL (1.8-2.4) Creatine Kinase 2386U/L (39-308) Albumin 1.1g/dL (3.4-5.0) Medications Active Scripts Medications Dose Route/Sig Days Date Category Percocet 5-325 Mg Tablet (Oxycodone/Acetaminophen) 1 Each Tablet 1-2 Tab PO Q4HRS 05/25/16 Reported Ultram (Tramadol Hcl) 50 Mg Tablet 50 Mg PO Q6H PRN 05/22/16 Rx Robaxin (Methocarbamol) 500 Mg Tablet 500 Mg PO QID 05/22/16 Rx Comments cxr reviewed persistent bilateral infiltrates Impression . 1. Acute hypoxemic respiratory failure, multifactorial in etiology.(septic shock, CHF, Metabolic acidosis, Renal failure) 2. Persistent bilateral infiltrates, suspect persistent CHF/ Pneumonia 3. CMP (EF 30%) 4. Septic shock.off pressors 5. Acute kidney injury. 6. Smoker. 7. History of drug abuse. 8. Status post cardiopulmonary arrest. 9. Hypotension.off pressors 10.Metabolic acidosis, improving Plan . 1. AC mode, not ready for weaning. 2. sedation 3. Bronchodilator, 4. fu Sputum culture, blood culture, urine culture. May consider Bronch 5. ID recommendations 6. Continue abx 7. Pepcid and heparin for stress ulcer and DVT prophylaxis. 8. Urine for legionella and strep pneumonia antigen, neg. 9. Urine drug screen, pos. 10. Cardiology and nephrology are on the case. 11. Marginal oxygenation, / May benefit from HD/ trial of lasix today The findings and recommendations were discussed with RN and RT. Addend: spoke with entire family, cardiology and renal.Needs cath. Dobutamine , Lasix and possible Bronch SUZIE MCCRAY MD Dec 11, 2016 09:59
[2016-12-11] MEDS: POTASSIUM PHOSPHATE DIBASIC 13.6 MMOL in IV NORMAL SALINE 100ML 100 ML IV SCH ×3 (11:13→17:22)
--- NOTE | 2016-12-11 12:16 | PDOC ---
NADYAJOHN FOOD SERVICE ASSISTANT 12/11/16 1216: CARDIO Progress Notes Date and Time Date of Service 12/11/2016 Time of Evaluation 1210 Subjective Subjective: Other (intubated and sedated) Vitals Vitals Vital Signs Date Time Temp Pulse Resp B/P Pulse Ox O2 Delivery O2 Flow Rate FiO2 12/11/16 11:00 91 21 98/60 100 Ventilator 12/11/16 08:00 99.0 99.0 Weight Weight [ ] Input and Output Intake and Output Intake and Output 12/11/16 07:00 Intake Total 2126 ml Output Total 1145 ml Balance 981 ml Intake Oral 128 ml IV Total 1219 ml Tube Feeding 345 ml Other 434 ml Output Urine Total 1145 ml # Bowel Movements 3 Laboratory Labs Laboratory Tests Test 12/10/16 12:20 12/10/16 12:30 12/11/16 06:10 12/11/16 08:15 O2 Saturation 93% (92-99) 91% (92-99) Arterial Blood pH 7.40 (7.35-7.45) 7.47 (7.35-7.45) Arterial Blood pCO2 at Patient Temp 42mmHg (35-46) 33mmHg (35-46) Arterial Blood pO2 at Patient Temp 65mmHg (75-108) 61mmHg (75-108) Arterial Blood HCO3 25mmol/L (21-28) 23mmol/L (21-28) Arterial Blood Base Excess 1mmol/L (-3-3) 0mmol/L (-3-3) FiO2 50 35 Urine Protein 145.5mg/dL (Not Estab.) Urine Creatinine 82.0mg/dL (Not Estab.) Urine Protein/Creatinine Ratio 1774mg/g creat (0-200) White Blood Count 21.5x10^3/uL (4.0-11.0) Red Blood Count 3.28x10^6/uL (4.30-5.70) Hemoglobin 10.0g/dL (13.0-17.5) Hematocrit 29.2% (39.0-53.0) Mean Corpuscular Volume 89fL (79-100) Mean Corpuscular Hemoglobin 30pg (25-35) Mean Corpuscular Hemoglobin Concent 34g/dL (31-37) Red Cell Distribution Width 14.0% (11.5-14.5) Platelet Count 314x10^3/uL (140-400) Neutrophils (%) (Auto) 90% (31-73) Lymphocytes (%) (Auto) 3% (24-48) Monocytes (%) (Auto) 7% (0-9) Eosinophils (%) (Auto) 0% (0-3) Basophils (%) (Auto) 0% (0-3) Neutrophils # (Auto) 19.2x10^3uL (1.8-7.7) Lymphocytes # (Auto) 0.7x10^3/uL (1.0-4.8) Monocytes # (Auto) 1.5x10^3/uL (0.0-1.1) Eosinophils # (Auto) 0.0x10^3/uL (0.0-0.7) Basophils # (Auto) 0.1x10^3/uL (0.0-0.2) Sodium Level 141mmol/L (136-145) Potassium Level 3.2mmol/L (3.5-5.1) Chloride Level 107mmol/L (98-107) Carbon Dioxide Level 22mmol/L (21-32) Anion Gap 12 (6-14) Blood Urea Nitrogen 42mg/dL (8-26) Creatinine 3.2mg/dL (0.7-1.3) Estimated GFR (Cockcroft-Gault) 25.1 Glucose Level 108mg/dL (70-99) Calcium Level 6.1mg/dL (8.5-10.1) Phosphorus Level 2.1mg/dL (2.6-4.7) Magnesium Level 2.3mg/dL (1.8-2.4) Creatine Kinase 2386U/L (39-308) Albumin 1.1g/dL (3.4-5.0) Microbiology Micro Microbiology 12/07/16 Blood Culture - Preliminary, Resulted NO GROWTH AFTER 3 DAYS 12/07/16 Stool Culture - Final, Complete 12/07/16 Stool Culture Result 1 (NEFTALI) - Final, Complete 12/07/16 Campylobacter Antigen Assay - Final, Complete 12/07/16 Campylobactor Result 1 - Final, Complete 12/07/16 Shiga Toxin Test - Final, Complete 12/08/16 Sputum Culture - Final, Complete 1/13/17 Sputum Result 1 - Final, Complete Physical Exam HEENT: Neck Supple W Full Motion Chest: Symmetric LUNGS: Other (decreased anteriorly; no crackles) Heart: S1S2, RRR, no thrills, no rubs, other (tele: SR/ST) Abdomen: Soft N/T Extremities: No Edema Neurology: other (sedated) Assessment Assessment 1. Septic shock with multiorgan failure. Presumed etiology of sepsis is PNA weaned off vasopressors; remains on vent 2. 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 ASHLEY per nephrology elevated CK - likely from chest compressions urine myoglobin pending FARIDA WRIGHT MD 12/11/16 2002: CARDIO Progress Notes Plan Plan Pt. seen and examined. AGree with above MEDICAL AFFAIRS MANAGER note. No acute events overnight. On exam normal heart tones. BP stable. Labs noted. Discussed with Dr. Dewey. Will plan for right and left heart cath tomorrow. JOHN COVINGTON APRN Dec 11, 2016 12:16 FARIDA WRIGHT MD Dec 11, 2016 20:02
--- NOTE | 2016-12-11 12:59 | PDOC ---
PROGRESS NOTES Chief Complaint Chief Complaint Chief Complaint: - Weakness, dehydration - Cardiac arrest PEA (12/08); TTE EF of 30-35% - Acute respiratory failure, likely multifactorial; On mechanical Ventilation ( 12/08)- possible aspiration pneumonia. Possible ARDS vs pulmonary edema vs PNA - ASHLEY - Septic shock, multiorgan failure, Off pressor support - Cardiomyopathy - Metabolic acidosis - Polysubstance abuse - Elevated troponin - Hypocalcemia. History of Present Illness History of Present Illness 51 year old male sedated on vent, settings AC/Rate- 22/ Tidal Vol - 500/ 40% FiO2 with 5.0 PEEP/ O2 sat- 99%. Discussed case with nursing. Vitals Vitals Vital Signs Date Time Temp Pulse Resp B/P Pulse Ox O2 Delivery O2 Flow Rate FiO2 12/11/16 12:10 100 Ventilator 12/11/16 12:00 90 95/56 12/11/16 11:00 21 12/11/16 08:00 99.0 99.0 Physical Exam Physical Exam Pupils reactive to light General: No acute distress, Other (Intubated/sedated ) Heart: Regular rate, Normal S1, Normal S2 Lungs: Other (Decrease bs) Abdomen: Normal bowel sounds, Soft, No tenderness Extremities: No clubbing, No cyanosis, No edema Skin: No rashes, No significant lesion Labs LABS Laboratory Tests Test 12/11/16 06:10 12/11/16 08:15 White Blood Count 21.5x10^3/uL (4.0-11.0) Red Blood Count 3.28x10^6/uL (4.30-5.70) Hemoglobin 10.0g/dL (13.0-17.5) Hematocrit 29.2% (39.0-53.0) Mean Corpuscular Volume 89fL (79-100) Mean Corpuscular Hemoglobin 30pg (25-35) Mean Corpuscular Hemoglobin Concent 34g/dL (31-37) Red Cell Distribution Width 14.0% (11.5-14.5) Platelet Count 314x10^3/uL (140-400) Neutrophils (%) (Auto) 90% (31-73) Lymphocytes (%) (Auto) 3% (24-48) Monocytes (%) (Auto) 7% (0-9) Eosinophils (%) (Auto) 0% (0-3) Basophils (%) (Auto) 0% (0-3) Neutrophils # (Auto) 19.2x10^3uL (1.8-7.7) Lymphocytes # (Auto) 0.7x10^3/uL (1.0-4.8) Monocytes # (Auto) 1.5x10^3/uL (0.0-1.1) Eosinophils # (Auto) 0.0x10^3/uL (0.0-0.7) Basophils # (Auto) 0.1x10^3/uL (0.0-0.2) Sodium Level 141mmol/L (136-145) Potassium Level 3.2mmol/L (3.5-5.1) Chloride Level 107mmol/L (98-107) Carbon Dioxide Level 22mmol/L (21-32) Anion Gap 12 (6-14) Blood Urea Nitrogen 42mg/dL (8-26) Creatinine 3.2mg/dL (0.7-1.3) Estimated GFR (Cockcroft-Gault) 25.1 Glucose Level 108mg/dL (70-99) Calcium Level 6.1mg/dL (8.5-10.1) Phosphorus Level 2.1mg/dL (2.6-4.7) Magnesium Level 2.3mg/dL (1.8-2.4) Creatine Kinase 2386U/L (39-308) Albumin 1.1g/dL (3.4-5.0) O2 Saturation 91% (92-99) Arterial Blood pH 7.47 (7.35-7.45) Arterial Blood pCO2 at Patient Temp 33mmHg (35-46) Arterial Blood pO2 at Patient Temp 61mmHg (75-108) Arterial Blood HCO3 23mmol/L (21-28) Arterial Blood Base Excess 0mmol/L (-3-3) FiO2 35 Review of Systems Review of Systems Patient sedated on vent, unable to obtain Assessment and Plan Assessmemt and Plan Assessment: - Weakness, dehydration - Cardiac arrest PEA (12/08); TTE EF of 30-35% - Acute respiratory failure, likely multifactorial; On mechanical Ventilation ( 12/08)- possible aspiration pneumonia. Possible ARDS vs pulmonary edema vs PNA - ASHLEY - Septic shock, multiorgan failure, Off pressor support - Cardiomyopathy - Metabolic acidosis - Polysubstance abuse - Elevated troponin - Hypocalcemia. Plan: - Patient sedated on mechanical ventilation. Wean as tolerated per pulmonology - Nephrology following, defer electrolyte replacement and monitoring of fluid balance - Defer to I.D. for antibiotic management. Has received Vanc X1, on Zosyn, Doxy , Zyvox - Await further culture results - Continue tube feedings - Recheck labs - Appreciate subspecialty input - Prognosis guarded Problems: Comment Review of Relevant I have reviewed the following items immanuel (where applicable) has been applied. Labs Laboratory Tests Test 12/09/16 17:35 12/09/16 17:40 12/10/16 00:20 12/10/16 05:30 Glucose (Fingerstick) 174mg/dL (70-99) Heparin Anti-Xa Act, Unfractionated 0.65IU/mL (0.30-0.70) 0.74IU/mL (0.30-0.70) 0.60IU/mL (0.30-0.70) White Blood Count 19.8x10^3/uL (4.0-11.0) Red Blood Count 3.69x10^6/uL (4.30-5.70) Hemoglobin 11.0g/dL (13.0-17.5) Hematocrit 33.5% (39.0-53.0) Mean Corpuscular Volume 91fL (79-100) Mean Corpuscular Hemoglobin 30pg (25-35) Mean Corpuscular Hemoglobin Concent 33g/dL (31-37) Red Cell Distribution Width 14.3% (11.5-14.5) Platelet Count 270x10^3/uL (140-400) Neutrophils (%) (Auto) 89% (31-73) Lymphocytes (%) (Auto) 4% (24-48) Monocytes (%) (Auto) 7% (0-9) Eosinophils (%) (Auto) 0% (0-3) Basophils (%) (Auto) 0% (0-3) Neutrophils # (Auto) 17.6x10^3uL (1.8-7.7) Lymphocytes # (Auto) 0.8x10^3/uL (1.0-4.8) Monocytes # (Auto) 1.3x10^3/uL (0.0-1.1) Eosinophils # (Auto) 0.0x10^3/uL (0.0-0.7) Basophils # (Auto) 0.1x10^3/uL (0.0-0.2) Test 12/10/16 08:15 12/10/16 08:30 12/10/16 08:36 12/10/16 12:20 O2 Saturation 90% (92-99) 93% (92-99) Arterial Blood pH 7.40 (7.35-7.45) 7.40 (7.35-7.45) Arterial Blood pCO2 at Patient Temp 40mmHg (35-46) 42mmHg (35-46) Arterial Blood pO2 at Patient Temp 59mmHg (75-108) 65mmHg (75-108) Arterial Blood HCO3 24mmol/L (21-28) 25mmol/L (21-28) Arterial Blood Base Excess 0mmol/L (-3-3) 1mmol/L (-3-3) FiO2 50 50 Sodium Level 139mmol/L (136-145) Potassium Level 3.5mmol/L (3.5-5.1) Chloride Level 104mmol/L (98-107) Carbon Dioxide Level 25mmol/L (21-32) Anion Gap 10 (6-14) Blood Urea Nitrogen 37mg/dL (8-26) Creatinine 2.9mg/dL (0.7-1.3) Estimated GFR (Cockcroft-Gault) 28.1 BUN/Creatinine Ratio 13 (6-20) Glucose Level 134mg/dL (70-99) Calcium Level 6.0mg/dL (8.5-10.1) Total Bilirubin 0.2mg/dL (0.2-1.0) Aspartate Amino Transf (AST/SGOT) 148U/L (15-37) Alanine Aminotransferase (ALT/SGPT) 52U/L (16-63) Alkaline Phosphatase 28U/L (46-116) Total Protein 4.7g/dL (6.4-8.2) Albumin 1.2g/dL (3.4-5.0) Albumin/Globulin Ratio 0.3 (1.0-1.7) Lipase 147U/L (73-393) Magnesium Level 1.6mg/dL (1.8-2.4) Test 12/10/16 12:30 12/11/16 06:10 12/11/16 08:15 Urine Protein 145.5mg/dL (Not Estab.) Urine Creatinine 82.0mg/dL (Not Estab.) Urine Protein/Creatinine Ratio 1774mg/g creat (0-200) White Blood Count 21.5x10^3/uL (4.0-11.0) Red Blood Count 3.28x10^6/uL (4.30-5.70) Hemoglobin 10.0g/dL (13.0-17.5) Hematocrit 29.2% (39.0-53.0) Mean Corpuscular Volume 89fL (79-100) Mean Corpuscular Hemoglobin 30pg (25-35) Mean Corpuscular Hemoglobin Concent 34g/dL (31-37) Red Cell Distribution Width 14.0% (11.5-14.5) Platelet Count 314x10^3/uL (140-400) Neutrophils (%) (Auto) 90% (31-73) Lymphocytes (%) (Auto) 3% (24-48) Monocytes (%) (Auto) 7% (0-9) Eosinophils (%) (Auto) 0% (0-3) Basophils (%) (Auto) 0% (0-3) Neutrophils # (Auto) 19.2x10^3uL (1.8-7.7) Lymphocytes # (Auto) 0.7x10^3/uL (1.0-4.8) Monocytes # (Auto) 1.5x10^3/uL (0.0-1.1) Eosinophils # (Auto) 0.0x10^3/uL (0.0-0.7) Basophils # (Auto) 0.1x10^3/uL (0.0-0.2) Sodium Level 141mmol/L (136-145) Potassium Level 3.2mmol/L (3.5-5.1) Chloride Level 107mmol/L (98-107) Carbon Dioxide Level 22mmol/L (21-32) Anion Gap 12 (6-14) Blood Urea Nitrogen 42mg/dL (8-26) Creatinine 3.2mg/dL (0.7-1.3) Estimated GFR (Cockcroft-Gault) 25.1 Glucose Level 108mg/dL (70-99) Calcium Level 6.1mg/dL (8.5-10.1) Phosphorus Level 2.1mg/dL (2.6-4.7) Magnesium Level 2.3mg/dL (1.8-2.4) Creatine Kinase 2386U/L (39-308) Albumin 1.1g/dL (3.4-5.0) O2 Saturation 91% (92-99) Arterial Blood pH 7.47 (7.35-7.45) Arterial Blood pCO2 at Patient Temp 33mmHg (35-46) Arterial Blood pO2 at Patient Temp 61mmHg (75-108) Arterial Blood HCO3 23mmol/L (21-28) Arterial Blood Base Excess 0mmol/L (-3-3) FiO2 35 Laboratory Tests Test 12/11/16 06:10 12/11/16 08:15 White Blood Count 21.5x10^3/uL (4.0-11.0) Red Blood Count 3.28x10^6/uL (4.30-5.70) Hemoglobin 10.0g/dL (13.0-17.5) Hematocrit 29.2% (39.0-53.0) Mean Corpuscular Volume 89fL (79-100) Mean Corpuscular Hemoglobin 30pg (25-35) Mean Corpuscular Hemoglobin Concent 34g/dL (31-37) Red Cell Distribution Width 14.0% (11.5-14.5) Platelet Count 314x10^3/uL (140-400) Neutrophils (%) (Auto) 90% (31-73) Lymphocytes (%) (Auto) 3% (24-48) Monocytes (%) (Auto) 7% (0-9) Eosinophils (%) (Auto) 0% (0-3) Basophils (%) (Auto) 0% (0-3) Neutrophils # (Auto) 19.2x10^3uL (1.8-7.7) Lymphocytes # (Auto) 0.7x10^3/uL (1.0-4.8) Monocytes # (Auto) 1.5x10^3/uL (0.0-1.1) Eosinophils # (Auto) 0.0x10^3/uL (0.0-0.7) Basophils # (Auto) 0.1x10^3/uL (0.0-0.2) Sodium Level 141mmol/L (136-145) Potassium Level 3.2mmol/L (3.5-5.1) Chloride Level 107mmol/L (98-107) Carbon Dioxide Level 22mmol/L (21-32) Anion Gap 12 (6-14) Blood Urea Nitrogen 42mg/dL (8-26) Creatinine 3.2mg/dL (0.7-1.3) Estimated GFR (Cockcroft-Gault) 25.1 Glucose Level 108mg/dL (70-99) Calcium Level 6.1mg/dL (8.5-10.1) Phosphorus Level 2.1mg/dL (2.6-4.7) Magnesium Level 2.3mg/dL (1.8-2.4) Creatine Kinase 2386U/L (39-308) Albumin 1.1g/dL (3.4-5.0) O2 Saturation 91% (92-99) Arterial Blood pH 7.47 (7.35-7.45) Arterial Blood pCO2 at Patient Temp 33mmHg (35-46) Arterial Blood pO2 at Patient Temp 61mmHg (75-108) Arterial Blood HCO3 23mmol/L (21-28) Arterial Blood Base Excess 0mmol/L (-3-3) FiO2 35 Microbiology 12/07/16 Blood Culture - Preliminary, Resulted NO GROWTH AFTER 3 DAYS 12/07/16 Stool Culture - Final, Complete 12/07/16 Stool Culture Result 1 (NEFTALI) - Final, Complete 12/07/16 Campylobacter Antigen Assay - Final, Complete 12/07/16 Campylobactor Result 1 - Final, Complete 12/07/16 Shiga Toxin Test - Final, Complete 12/08/16 Sputum Culture - Final, Complete 12/08/16 Sputum Result 1 - Final, Complete Medications Current Medications Ketorolac Tromethamine 30 mg 30 mg 1X ONCE IV Last administered on 12/07/16t 14:34; Start 12/07/16 at 14:30; Stop 12/07/16 at 14:31; Status DC Sodium Chloride 1,000 ml @ 1,000 mls/hr 1X ONCE IV Last administered on t 14:34; Start 12/07/16 at 14:30; Stop 12/07/16 at 15:29; Status DC Ceftriaxone Sodium 1 gm/ Sodium Chloride 50 ml @ 100 mls/hr Q24H IV ; Start at 15:30; Stop 12/08/16 at 15:30; Status DC Azithromycin 250 ml @ 250 mls/hr 1X ONCE IV Last administered on 12/07/16 15 :48; Start 12/07/16 at 15:15; Stop 12/07/16 at 16:14; Status DC Sodium Chloride 1,000 ml @ 1,000 mls/hr 1X ONCE IV Last administered on 16:09; Start 12/07/16 at 15:15; Stop 12/07/16 at 16:14; Status DC Ceftriaxone Sodium 50 ml @ 100 mls/hr 1X ONCE IV Last administered on 15:29; Start 12/07/16 at 15:15; Stop 12/07/16 at 15:44; Status DC Sodium Chloride (Iv Sodium Chloride 0.9% 1000ml Bag) 1,000 ml @ 150 mls/hr 1X ONCE IV Last administered on 12/07/16 18:10; Start 12/07/16 at 15:15; Stop 11/11 at 21:54; Status DC Famotidine (Pepcid) 20 mg 1X ONCE IVP Last administered on 12/07/16 15:48; Start 12/07/16 at 15:45; Stop 12/07/16 at 15:46; Status DC Ondansetron HCl 4 mg 4 mg 1X ONCE IV Last administered on 12/07/16 16:09; Start 12/07/16 at 16:15; Stop 12/07/16 at 16:16; Status DC Sodium Chloride (Iv Sodium Chloride 0.9% 1000ml Bag) 1,000 ml @ 150 mls/hr Q6H40M IV Last administered on 12/08/16 06:38; Start 12/07/16 at 16:30; Stop 12/08/16 at 14:21; Status DC Ondansetron HCl (Zofran) 4 mg PRN Q6HRS PRN IV NAUSEA/VOMITING; Start 12/07/16 at 16:30 Acetaminophen (Tylenol) 500 mg PRN Q6HRS PRN PO MILD PAIN / TEMP Last administered on 12/09/16 15:04; Start 12/07/16 at 16:30 Morphine Sulfate 2 mg PRN Q2HR PRN IV PAIN Last administered on 12/08/16 05:28 ; Start 12/07/16 at 16:30 Zolpidem Tartrate (Ambien) 5 mg PRN QHS PRN PO INSOMNIA Last administered on 01:06; Start 12/07/16 at 16:30; Stop 12/08/16 at 10:03; Status DC Methocarbamol (Robaxin) 500 mg QID PO Last administered on 12/07/16 21:19; Start 12/07/16 at 17:00; Stop 12/08/16 at 10:03; Status DC Oxycodone/ Acetaminophen (Percocet 5/325) 1 tab PRN Q4HRS PRN PO SEVERE PAIN; Start 12/07/16 at 16:30 Tramadol HCl (Ultram) 50 mg PRN Q6HRS PRN PO MODERATE PAIN Last administered on 12/07/16 17:11; Start 12/07/16 at 16:30 Nicotine (Nicoderm Cq 21mg) 1 patch PRN DAILY PRN TD SMOKING CESSATION; Start 12/07/16 at 16:30 Info (Do NOT chart on this placeholder) 1 each 1X ONCE MC ; Start 12/07/16 at 22:45; Stop 12/07/16 at 22:46; Status UNV Pneumococcal Polyvalent Vaccine (Do NOT chart on this placeholder) 1 each 1X ONCE MC ; Start 12/07/16 at 22:45; Stop 12/07/16 at 22:46; Status UNV Influenza Virus Vaccine Quadrival (Fluarix Quad 0015-2469 Syringe) 0.5 ml ONCE ONCE VAX IM ; Start 12/08/16 at 09:00; Stop 12/08/16 at 09:01; Status DC Pneumococcal Polyvalent Vaccine (Pneumovax 23) 0.5 ml ONCE ONCE VAX IM ; Start 12/08/16 at 09:00; Stop 12/08/16 at 09:01; Status DC Labetalol HCl (Normodyne) 10 mg 1X ONCE IVP Last administered on 12/08/16 08: 56; Start 12/08/16 at 08:30; Stop 12/08/16 at 08:35; Status DC Alprazolam (Xanax) 0.5 mg 1X ONCE PO Last administered on 12/08/16 08:40; Start 12/08/16 at 08:45; Stop 12/08/16 at 08:46; Status DC Aspirin (Children'S Aspirin) 324 mg 1X ONCE PO Last administered on 12/08/16 13:44; Start 12/08/16 at 09:30; Stop 12/08/16 at 09:31; Status DC Aspirin (Jada Aspirin) 325 mg DAILYWBKFT PO ; Start 12/09/16 at 08:00; Stop at 08:00; Status DC Heparin Sodium (Porcine) 4000 unit 4,000 unit 1X ONCE IV ; Start 12/08/16 at 09 :30; Stop 12/08/16 at 14:21; Status DC Midazolam HCl 100 ml @ As Directed STK-MED ONCE IV ; Start 12/08/16 at 09:52; Stop 12/08/16 at 09:53; Status DC Propofol (Diprivan) 100 ml @ 0 mls/hr CONT PRN IV SEE I/O RECORD Last administered on 12/08/16 23:49; Start 12/08/16 at 10:00 Famotidine (Pepcid) 20 mg QHS IVP Last administered on 12/10/16 20:25; Start 12/08/16 at 21:00 Heparin Sodium (Porcine) 5000 unit 5,000 unit Q8HRS SQ ; Start 12/08/16 at 14:00 ; Stop 12/08/16 at 14:00; Status DC Norepinephrine Bitartrate 8 mg/ Sodium Chloride 258 ml @ 1.93 mls/hr CONT PRN IV SEE I/O RECORD; Start 12/08/16 at 10:15; Status Cancel Dopamine HCl/ Dextrose 250 ml @ As Directed STK-MED ONCE IV ; Start 12/08/16 at 10:07; Stop 12/08/16 at 10:08; Status DC Norepinephrine Bitartrate 8 mg/ Sodium Chloride 258 ml @ 0 mls/hr CONT PRN IV SEE I/O RECORD Last administered on 12/09/16 08:46; Start 12/08/16 at 10:15; Stop 12/09/16 at 11:47; Status DC Dopamine HCl/ Dextrose 250 ml @ 10.084 mls/ hr CONT PRN IV SEE I/O RECORD Last administered on 12/08/16 10:00; Start 12/08/16 at 10:15 Sodium Bicarbonate/ Sodium Chloride (Iv Sodium Chloride 0.45%) 1,050 ml @ 200 mls/hr Q5H15M IV Last administered on 12/09/16 05:11; Start 12/08/16 at 10:30 ; Stop 12/09/16 at 08:28; Status DC Phenylephrine HCl 1 mg STK-MED ONCE IV ; Start 12/08/16 at 10:25; Stop 12/08/16 at 10:26; Status DC Aspirin 300 mg 300 mg 1X ONCE MS ; Start 12/08/16 at 10:45; Stop 12/08/16 at 10 :46; Status DC Sodium Chloride 1,000 ml @ 1,000 mls/hr 1X ONCE IV Last administered on 10:00; Start 12/08/16 at 11:45; Stop 12/08/16 at 12:44; Status DC Sodium Chloride (Iv Sodium Chloride 0.9% 1000ml Bag) 1,000 ml @ 1,000 mls/hr 1X ONCE IV Last administered on 12/08/16 10:00; Start 12/08/16 at 11:45; Stop 12/08/16 at 12:44; Status DC Albuterol/ Ipratropium (Duoneb) 3 ml RTQID NEB Last administered on 12/08/16 19:44; Start 12/08/16 at 12:30; Stop 12/09/16 at 05:17; Status DC Budesonide 0.5 mg 0.5 mg RTBID NEB Last administered on 12/11/16 08:38; Start 12/08/16 at 12:30 Sodium Chloride 1,000 ml @ 1,000 mls/hr 1X ONCE IV Last administered on 11:00; Start 12/08/16 at 12:15; Stop 12/08/16 at 13:14; Status DC Sodium Chloride 1,000 ml @ 1,000 mls/hr 1X ONCE IV Last administered on 11:00; Start 12/08/16 at 12:15; Stop 12/08/16 at 13:14; Status DC Heparin Sodium/ Dextrose 500 ml @ 0 mls/hr CONT PRN IV SEE I/O RECORD Last administered on 12/09/16 13:11; Start 12/08/16 at 12:45 Heparin Sodium (Porcine) 1,350 unit PRN Q6HRS PRN IV FOR UFH LEVEL LESS THAN 0.2 Last administered on 12/09/16 05:47; Start 12/08/16 at 12:45 Etomidate (Amidate) 20 mg STK-MED ONCE IV ; Start 12/08/16 at 13:00; Stop at 13:01; Status DC Succinylcholine Chloride 200 mg 200 mg STK-MED ONCE .ROUTE ; Start 12/08/16 at 13:00; Stop 12/08/16 at 13:01; Status DC Piperacillin Sod/ Tazobactam Sod 3.375 gm/Sodium Chloride 50 ml @ 100 mls/hr Q6HRS IV ; Start 12/08/16 at 18:00; Stop 12/08/16 at 18:00; Status DC Vancomycin HCl 1 gm/Sodium Chloride 250 ml @ 250 mls/hr 1X ONCE IV Last administered on 12/08/16 14:21; Start 12/08/16 at 14:00; Stop 12/08/16 at 14:59 ; Status DC Piperacillin Sod/ Tazobactam Sod 2.25 gm/Sodium Chloride 50 ml @ 100 mls/hr Q6HRS IV Last administered on 12/09/16 06:17; Start 12/08/16 at 14:00; Stop at 08:25; Status DC Midazolam HCl 100 ml @ 0 mls/hr CONT PRN IV SEE I/O RECORD Last administered on 12/11/16 07:16; Start 12/08/16 at 10:30 Fentanyl Citrate (Fentanyl 600 Mcg/30 ml DRAFTER (CAD) ELECTRONIC) 30 ml @ 0 mls/hr CONT PRN IV PROTOCOL Last administered on 12/11/16 08:45; Start 12/09/16 at 05:15 Fentanyl Citrate (Fentanyl 2ml Vial) 25 mcg PRN Q1HR PRN IV COMM; Start at 05:15 Fentanyl Citrate (Fentanyl 2ml Vial) 50 mcg PRN Q1HR PRN IV COMM; Start at 05:15 Ipratropium [place] (Atrovent) 0.5 mg RTQID NEB Last administered on 12/11/16 12:16; Start 12/09/16 at 08:00 Aspirin (Children'S Aspirin) 81 mg DAILYWBKFT PO Last administered on 08:47; Start 12/09/16 at 08:00 Chlorhexidine Gluconate 15 ml 15 ml BID MM Last administered on 12/11/16 08:47 ; Start 12/09/16 at 09:00 Sodium Bicarbonate 150 meq/Dextrose 1,150 ml @ 100 mls/hr [id number] IV Last administered on 12/10/16 09:34; Start 12/09/16 at 09:00; Stop 12/10/16 at 12:14 ; Status DC Piperacillin Sod/ Tazobactam Sod 3.375 gm/Sodium Chloride 50 ml @ 100 mls/hr Q6HRS IV Last administered on 12/11/16 06:01; Start 12/09/16 at 12:00; Stop at 07:47; Status DC Norepinephrine Bitartrate 16 mg/ Sodium Chloride 266 ml @ 0.99 mls/hr CONT PRN IV SEE I/O RECORD Last administered on 12/09/16 20:36; Start 12/09/16 at 12 :00 Doxycycline Hyclate/Dextrose 100 ml @ 50 mls/hr Q12HR IV Last administered on 12/11/16 08:48; Start 12/09/16 at 13:00 Atropine Sulfate 0.5 mg STK-MED ONCE .ROUTE ; Start 12/08/16 at 10:30; Stop at 13:18; Status DC Epinephrine HCl 3 mg STK-MED ONCE .ROUTE ; Start 12/08/16 at 10:30; Stop at 13:18; Status DC Calcium Gluconate 1000 mg 1,000 mg 1X ONCE IVP ; Start 12/10/16 at 10:00; Stop 12/10/16 at 10:01; Status UNV Magnesium Sulfate/ Dextrose 50 ml @ 25 mls/hr 1X ONCE IV Last administered on 12/10/16 11:40; Start 12/10/16 at 12:00; Stop 12/10/16 at 13:59; Status DC Calcium Gluconate 1000 mg/Sodium Chloride 110 ml @ 220 mls/hr 1X ONCE IV Last administered on 12/10/16 11:36; Start 12/10/16 at 12:00; Stop 12/10/16 at 12:29; Status DC Magnesium Sulfate/ Dextrose 50 ml @ 25 mls/hr PRN DAILY PRN IV for Mag < 1.7 on am labs; Start 12/10/16 at 12:15 Amino Acids/ Glycerin/ Electrolytes 1,000 ml @ 80 mls/hr [id number] IV ; Start at 12:30; Stop 12/10/16 at 12:30; Status DC Albumin Human (Albuminar) 100 ml @ 100 mls/hr TID IV ; Start 12/10/16 at 14:00 ; Stop 12/10/16 at 14:00; Status DC Calcium Gluconate 2000 mg 2,000 mg TID IVP ; Start 12/10/16 at 14:00; Stop 12/10 at 14:00; Status DC Piperacillin Sod/ Tazobactam Sod 2.25 gm/Sodium Chloride 50 ml @ 100 mls/hr Q6HRS IV ; Start 12/11/16 at 12:00 Linezolid (Zyvox Premix) 300 ml @ 300 mls/hr Q12HR IV Last administered on 08:47; Start 12/11/16 at 09:00 Info 1 each 1 each PRN DAILY PRN MC SEE COMMENTS Last administered on 09:14; Start 12/11/16 at 08:15 Potassium Phosphate/Sodium Chloride (Potassium Phosphate/Iv Sodium Chloride 0.9 % 100ml) 104.5333 ml @ 52.267 m... Q2H IV Last administered on 12/11/16 11:13 ; Start 12/11/16 at 09:00; Stop 12/11/16 at 14:59 Furosemide (Lasix) 20 mg 1X ONCE IVP Last administered on 12/11/16 11:10; Start 12/11/16 at 10:00; Stop 12/11/16 at 10:03; Status DC Active Scripts Active Ultram (Tramadol Hcl) 50 Mg Tablet 50 Mg PO Q6H PRN Robaxin (Methocarbamol) 500 Mg Tablet 500 Mg PO QID Reported Percocet 5-325 Mg Tablet (Oxycodone/Acetaminophen) 1 Each Tablet 1-2 Tab PO Q4HRS Vitals/I & O Vital Sign - Last 24 Hours 12/10/16 12/10/16 12/10/16 12/10/16 13:00 14:00 15:00 16:00 Pulse 98 98 100 Resp 22 23 22 B/P 102/60 108/60 110/56 Pulse Ox 100 93 100 O2 Delivery Ventilator Ventilator Ventilator Mechanical Ventilator 12/10/16 12/10/16 12/10/16 12/10/16 16:00 16:00 16:47 17:00 Temp 99.0 99.0 Pulse 100 100 100 Resp 22 22 B/P 122/60 122/60 110/60 Pulse Ox 100 93 100 O2 Delivery Ventilator Ventilator Ventilator 12/10/16 12/10/16 12/10/16 12/10/16 18:00 19:00 20:00 20:00 Pulse 101 100 102 Resp 22 22 B/P 122/66 118/66 109/61 Pulse Ox 100 100 O2 Delivery Ventilator Ventilator Mechanical Ventilator 12/10/16 12/10/16 12/10/16 12/10/16 20:00 21:00 21:28 21:29 Temp 99.8 99.8 Pulse 102 100 Resp 22 22 B/P 109/61 112/62 Pulse Ox 99 99 99 99 O2 Delivery Ventilator Ventilator Ventilator Ventilator 12/10/16 12/10/16 12/10/16 12/11/16 22:00 23:00 23:39 00:00 Pulse 104 100 102 Resp 22 22 B/P 115/59 108/56 109/60 Pulse Ox 98 98 99 O2 Delivery Ventilator Ventilator Ventilator 12/11/16 12/11/16 12/11/16 12/11/16 00:00 00:00 01:00 02:00 Temp 100.2 100.2 Pulse 102 100 99 Resp 22 22 22 B/P 109/60 102/58 115/61 Pulse Ox 99 99 99 O2 Delivery Ventilator Mechanical Ventilator Ventilator Ventilator 12/11/16 12/11/16 12/11/16 12/11/16 02:05 03:00 04:00 04:00 Temp 99.2 99.2 Pulse 100 100 100 Resp 22 22 B/P 112/58 119/61 119/61 Pulse Ox 100 100 98 O2 Delivery Ventilator Ventilator Ventilator 12/11/16 12/11/16 12/11/16 12/11/16 04:00 04:17 05:00 06:00 Pulse 98 96 Resp 23 22 B/P 100/57 98/58 Pulse Ox 99 100 100 O2 Delivery Mechanical Ventilator Ventilator Ventilator Ventilator 12/11/16 12/11/16 12/11/16 12/11/16 07:00 08:00 08:00 08:00 Temp 99.0 99.0 Pulse 95 93 93 Resp 21 22 B/P 94/54 95/54 93/52 Pulse Ox 100 100 O2 Delivery Ventilator Mechanical Ventilator Ventilator 12/11/16 12/11/16 12/11/16 12/11/16 08:15 08:45 09:00 10:00 Pulse 92 92 Resp 21 22 23 B/P 106/60 104/60 Pulse Ox 100 100 100 O2 Delivery Ventilator Ventilator Ventilator 12/11/16 12/11/16 12/11/16 12/11/16 10:05 11:00 12:00 12:10 Pulse 91 90 Resp 21 B/P 98/60 95/56 Pulse Ox 100 100 100 O2 Delivery Ventilator Ventilator Ventilator Intake and Output 12/10/16 12/10/16 12/11/16 15:00 23:00 07:00 Intake Total 310 ml 1037 ml 779 ml Output Total 440 ml 355 ml 350 ml Balance -130 ml 682 ml 429 ml MAGNO CHAPARRO III DO Dec 11, 2016 12:59
[2016-12-11] MEDS ORDERED: DOBUTAMINE 500MG/250ML PREMIX 250 ML IV PRN (14:45)
[2016-12-11] MEDS: PIPERACILLIN/TAZOBACTAM 2.25 GM in IV NORMAL SALINE 50ML 50 ML IV SCH ×2 (15:05→19:45)
[2016-12-12] VITALS (25 sets, daily range): BP systolic 98–134; BP diastolic 56–80
[2016-12-12] MEDS: CHLORHEXIDINE 0.12% 15 ML MOUTHWASH. MM SCH ×3 (00:19→21:56)
[2016-12-12] MEDS: DOXYCYCLINE HYCLATE 100 MG in IV DEXTROSE 5% 100 ML IV SCH ×3 (00:19→22:51)
[2016-12-12] MEDS: FAMOTIDINE 20 MG/2 ML VIAL IVP SCH ×2 (00:20→21:56)
[2016-12-12] MEDS: PIPERACILLIN/TAZOBACTAM 2.25 GM in IV NORMAL SALINE 50ML 50 ML IV SCH ×4 (00:30→17:14)
[2016-12-12] MEDS: FENTANYL STANDARD PCA 30 ML IV PRN ×3 (04:03→22:36)
[2016-12-12 05:58] LABS: BASO # 0.1 x10^3/uL (0.0-0.2); BASO % 0 % (0-3); EOS % 0 % (0-3); HEMATOCRIT 26.5 % (39.0-53.0); HEMOGLOBIN 8.8 g/dL (13.0-17.5); LYMPH # 0.6 x10^3/uL (1.0-4.8); LYMPH % 3 % (24-48); MEAN CORPUSCULAR HEMOGLOBIN 30 pg (25-35); MEAN CORPUSCULAR HGB CONC 33 g/dL (31-37); MEAN CORPUSCULAR VOLUME 91 fL (79-100); MONO % 7 % (0-9); NEUT % 90 % (31-73); PLATELET COUNT 310 x10^3/uL (140-400); RED BLOOD COUNT 2.91 x10^6/uL (4.30-5.70); RED CELL DISTRIBUTION WIDTH 14.4 % (11.5-14.5); WHITE BLOOD COUNT 20.6 x10^3/uL (4.0-11.0)
[2016-12-12 07:14] LABS: ALBUMIN 1.1 g/dL (3.4-5.0); CALCIUM 7.1 mg/dL (8.5-10.1); CREATININE 3.8 mg/dL (0.7-1.3); GFR 20.6; MAGNESIUM 2.2 mg/dL (1.8-2.4); PHOSPHORUS 2.6 mg/dL (2.6-4.7); POTASSIUM 3.4 mmol/L (3.5-5.1)
[2016-12-12] MEDS: BUDESONIDE 0.5 MG/2 ML NEBU NEB SCH ×2 (07:30→19:23)
[2016-12-12] MEDS: IPRATROPIUM BROMIDE 0.5 MG/2.5 ML NEBU. NEB SCH ×4 (07:30→19:24)
[2016-12-12 08:11] LABS: HCO3 ABG 23 mmol/L (21-28); PCO2 ABG 35 mmHg (35-46); PH ABG 7.43 (7.35-7.45); PO2 ABG 60 mmHg (75-108); SAT O2 ABG 90 % (92-99)
[2016-12-12 08:13] LABS: FIO2 ABG 35
[2016-12-12] MEDS: ANTI-COAG MONITOR BY PHARMACY. MC PRN (08:21)
--- NOTE | 2016-12-12 08:28 | PDOC ---
Infectious Disease Note Subjective Subjective Sedated. BP stable. Off pressors Tube feedings ROS ROS Unable to obtain Vital Sign Vital Signs Vital Signs Date Time Temp Pulse Resp B/P Pulse Ox O2 Delivery O2 Flow Rate FiO2 12/12/16 07:31 100 Ventilator 12/12/16 06:00 98.1 93 34 104/60 98.1 12/12/16 04:03 4.0 Physical Exam PHYSICAL EXAM GENERAL: Intubated and sedated HEENT: Pupils small. ETT. OGT LUNGS: Clear. vent. HEART: S1S2, no gallop, no murmur. 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 (12/09). clean Peripheral IV Labs Lab Laboratory Tests Test 12/12/16 05:30 12/12/16 06:30 12/12/16 08:10 White Blood Count 20.6x10^3/uL (4.0-11.0) Red Blood Count 2.91x10^6/uL (4.30-5.70) Hemoglobin 8.8g/dL (13.0-17.5) Hematocrit 26.5% (39.0-53.0) Mean Corpuscular Volume 91fL (79-100) Mean Corpuscular Hemoglobin 30pg (25-35) Mean Corpuscular Hemoglobin Concent 33g/dL (31-37) Red Cell Distribution Width 14.4% (11.5-14.5) Platelet Count 310x10^3/uL (140-400) Neutrophils (%) (Auto) 90% (31-73) Lymphocytes (%) (Auto) 3% (24-48) Monocytes (%) (Auto) 7% (0-9) Eosinophils (%) (Auto) 0% (0-3) Basophils (%) (Auto) 0% (0-3) Neutrophils # (Auto) 18.4x10^3uL (1.8-7.7) Lymphocytes # (Auto) 0.6x10^3/uL (1.0-4.8) Monocytes # (Auto) 1.4x10^3/uL (0.0-1.1) Eosinophils # (Auto) 0.0x10^3/uL (0.0-0.7) Basophils # (Auto) 0.1x10^3/uL (0.0-0.2) Sodium Level 141mmol/L (136-145) Potassium Level 3.4mmol/L (3.5-5.1) Chloride Level 106mmol/L (98-107) Carbon Dioxide Level 25mmol/L (21-32) Anion Gap 10 (6-14) Blood Urea Nitrogen 49mg/dL (8-26) Creatinine 3.8mg/dL (0.7-1.3) Estimated GFR (Cockcroft-Gault) 20.6 Glucose Level 117mg/dL (70-99) Calcium Level 7.1mg/dL (8.5-10.1) Phosphorus Level 2.6mg/dL (2.6-4.7) Magnesium Level 2.2mg/dL (1.8-2.4) Creatine Kinase 1785U/L (39-308) Albumin 1.1g/dL (3.4-5.0) O2 Saturation 90% (92-99) Arterial Blood pH 7.43 (7.35-7.45) Arterial Blood pCO2 at Patient Temp 35mmHg (35-46) Arterial Blood pO2 at Patient Temp 60mmHg (75-108) Arterial Blood HCO3 23mmol/L (21-28) Arterial Blood Base Excess -1mmol/L (-3-3) FiO2 35 Objective Assessment Sepsis with lactic acidosis. POA - off Pressors Fever - curve better Leukocytosis - stable Pneumonia -Influenza screen neg -Strep antigen & legionella Ag neg Acute encephalopathy Acute respiratory failure s/p intubation s/p PEA cardiopulmonary arrest -TTE EF 30-35%. -No veg noted Hypotension on vasopressor support x 2. Now off ASHLEY - Renal following - worse Polysubstance abuse Diarrhea. c. diff neg. stool cx neg Plan Plan of Care Cont Zosyn/ doxy Zyvox Cardiac cath today Would D/c art -line if not needed May need U/S RUE if edema persists Await ? need for HD One time dose vanc 12/08 Rocephin and azithromycin 12/07 Monitor labs/temp Cultures NGTD Supportive care Critically ill LILIANA SEVERINO MD Dec 12, 2016 08:28
[2016-12-12] MEDS ORDERED: MAGNESIUM SULFATE 2GM 50 ML IV PRN (08:45)
[2016-12-12] MEDS ORDERED: POTASSIUM CHLORIDE 20MEQ 50 ML IV PRN ×2 (08:45)
--- NOTE | 2016-12-12 08:50 | PDOC ---
SUBJECTIVE ROS ASHLEY on the Vent still OBJECTIVE Vital Signs Vital Signs Date Time Temp Pulse Resp B/P Pulse Ox O2 Delivery O2 Flow Rate FiO2 12/12/16 07:31 100 Ventilator 12/12/16 06:00 98.1 93 34 104/60 98.1 12/12/16 04:03 4.0 I & 0 Intake and Output 12/12/16 07:00 Intake Total 2880.3566 ml Output Total 1343 ml Balance 1537.3566 ml IV Total 1477.3566 ml Tube Feeding 1041 ml Other 362 ml Output Urine Total 1343 ml Gastric Drainage Total 0 ml PHYSICAL EXAM Physical Exam GEN: Intubated on the Vent, In no distress EYES: Vision Unchanged, Conjunctiva Normal EN: No EN Drainage, Mucous Membranes moist NECK: no JVD, no JVP, Supple, no Thyromegaly CVS: S1S2, no Murmur, No Gallop, No Rub,no Edema RESP: rare Rales, no Rhonchi,no Acc. Muscle Use GI: BS + ve, NO Bruit, Non Tender, Non Distended : no CVA tenderness, no Suprapubic Tenderness DIAGNOSIS/ASSESSMENT Assessment & Plan ARF/ ATN post code - Creat is rising. ^CK may be contributing (await U. Myoglobin) Current fluid and E-lyte status does not necessitate emergent need for dialysis. Will re-evaluate for dialysis in the am ? Rhabdo - await U. Bob. ^CK due to AMI cannot be ruled out Resp Failure - defer to Pulm. Will be conservative with IVF and Use colloids prn. ? Cardiogenic. CXR appears worse. ? C today - start NAC Low K and PHos - replaced as ordered Sev. Malnutrition - TF for now Prognosis is guarded COMMENT/RELEVANT DATA Meds Current Medications Medications (Trade) Dose Ordered Sig/Flakito Start Time Stop Time Status Last Admin Dose Admin Acetaminophen (Tylenol) 500 mg PRN Q6HRS PRN 12/07/16 16:30 12/09/16 15:04 500 MG Albumin Human (Albuminar) 100 ml @ 100 mls/hr TID 12/10/16 14:00 12/10/16 14:00 DC Albuterol/ Ipratropium (Duoneb) 3 ml RTQID 12/08/16 12:30 1/14/17 05:17 DC 12/08/16 19:44 3 ML Alprazolam (Xanax) 0.5 mg 1X ONCE 12/08/16 08:45 12/08/16 08:46 DC 12/08/16 08:40 0.5 MG Amino Acids/ Glycerin/ Electrolytes 1,000 ml @ 80 mls/hr [id number] 12/10/16 12:30 12/10/16 12:30 DC Aspirin (Jada Aspirin) 325 mg [id number] 12/09/16 08:00 12/09/16 08:00 DC Aspirin (Children'S Aspirin) 81 mg [id number] 12/09/16 08:00 12/11/16 08:47 81 MG Aspirin 300 mg 300 mg 1X ONCE 12/08/16 10:45 12/08/16 10:46 DC Atropine Sulfate 0.5 mg STK-MED ONCE 12/08/16 10:30 12/09/16 13:18 DC Azithromycin 250 ml @ 250 mls/hr 1X ONCE 12/07/16 15:15 12/07/16 16:14 DC 12/07/16 15:48 250 MLS/HR Budesonide 0.5 mg 0.5 mg RTBID 12/08/16 12:30 12/12/16 07:30 0.5 MG Calcium Gluconate 1000 mg 1,000 mg 1X ONCE 12/10/16 10:00 12/10/16 10:01 UNV Calcium Gluconate 1000 mg/Sodium Chloride 110 ml @ 220 mls/hr 1X ONCE 12/10/16 12:00 12/10/16 12:29 DC 12/10/16 11:36 220 MLS/HR Calcium Gluconate 2000 mg 2,000 mg TID 12/10/16 14:00 12/10/16 14:00 DC Ceftriaxone Sodium 1 gm/ Sodium Chloride 50 ml @ 100 mls/hr Q24H 12/08/16 15:30 12/08/16 15:30 DC Ceftriaxone Sodium (Rocephin 1gm Ivpb For Omni) 50 ml @ 100 mls/hr 1X ONCE 12/07/16 15:15 12/07/16 15:44 DC 12/07/16 15:29 100 MLS/HR Chlorhexidine Gluconate 15 ml 15 ml BID 12/09/16 09:00 12/12/16 00:19 15 ML Dobutamine HCl/ Dextrose 250 ml @ 0 mls/hr CONT PRN 12/11/16 14:45 12/11/16 15:05 4.601 MLS/HR Dopamine HCl/ Dextrose 250 ml @ 10.084 mls/ hr CONT PRN 12/08/16 10:15 12/08/16 10:00 20.167 MLS/HR Doxycycline Hyclate/Dextrose 100 ml @ 50 mls/hr Q12HR 12/09/16 13:00 12/12/16 00:19 50 MLS/HR Epinephrine HCl 3 mg STK-MED ONCE 12/08/16 10:30 12/09/16 13:18 DC Etomidate (Amidate) 20 mg STK-MED ONCE 12/08/16 13:00 12/08/16 13:01 DC Famotidine (Pepcid) 20 mg QHS 12/08/16 21:00 12/12/16 00:20 20 MG Fentanyl Citrate (Fentanyl 2ml Vial) 50 mcg PRN Q1HR PRN 12/09/16 05:15 Fentanyl Citrate (Fentanyl 600 Mcg/30 ml SCENARIO WRITER) 30 ml @ 0 mls/hr CONT PRN 12/09/16 05:15 12/12/16 04:03 2.5 MLS/HR Furosemide 20 mg 20 mg 1X ONCE 12/11/16 10:00 12/11/16 10:03 DC 12/11/16 11:10 20 MG Heparin Sodium (Porcine) 1,350 unit PRN Q6HRS PRN 12/08/16 12:45 12/09/16 05:47 1,350 UNIT Heparin Sodium (Porcine) 4000 unit 4,000 unit 1X ONCE 12/08/16 09:30 12/08/16 14:21 DC Heparin Sodium (Porcine) 5000 unit 5,000 unit Q8HRS 12/08/16 14:00 12/08/16 14:00 DC Heparin Sodium/ Dextrose 500 ml @ 0 mls/hr CONT PRN 12/08/16 12:45 12/09/16 13:11 0 MLS/HR Influenza Virus Vaccine Quadrival (Fluarix Quad 5077-9577 Syringe) 0.5 ml ONCE ONCE 12/08/16 09:00 12/08/16 09:01 DC Info (Do NOT chart on this placeholder) 1 each 1X ONCE 12/07/16 22:45 12/07/16 22:46 UNV Info 1 each 1 each PRN DAILY PRN 12/11/16 08:15 12/12/16 08:21 1 EACH Ipratropium [place] (Atrovent) 0.5 mg RTQID 12/09/16 08:00 12/12/16 07:30 0.5 MG Ketorolac Tromethamine 30 mg 30 mg 1X ONCE 12/07/16 14:30 12/07/16 14:31 DC 12/07/16 14:34 30 MG Labetalol HCl (Normodyne) 10 mg 1X ONCE 12/08/16 08:30 12/08/16 08:35 DC 12/08/16 08:56 10 MG Linezolid (Zyvox Premix) 300 ml @ 300 mls/hr Q12HR 12/11/16 09:00 12/12/16 00:19 300 MLS/HR Magnesium Sulfate/ Dextrose 50 ml @ 25 mls/hr PRN DAILY PRN 12/10/16 12:15 Methocarbamol (Robaxin) 500 mg QID 12/07/16 17:00 12/08/16 10:03 DC 12/07/16 21:19 500 MG Midazolam HCl 100 ml @ 0 mls/hr CONT PRN 12/08/16 10:30 12/11/16 07:16 3 MLS/HR Morphine Sulfate 2 mg PRN Q2HR PRN 12/07/16 16:30 12/08/16 05:28 2 MG Nicotine (Nicoderm Cq 21mg) 1 patch PRN DAILY PRN 12/07/16 16:30 Norepinephrine Bitartrate 16 mg/ Sodium Chloride 266 ml @ 0.99 mls/hr CONT PRN 12/09/16 12:00 12/09/16 20:36 29.92 MLS/HR Norepinephrine Bitartrate 8 mg/ Sodium Chloride 258 ml @ 0 mls/hr CONT PRN 12/08/16 10:15 12/09/16 11:47 DC 12/09/16 08:46 58.05 MLS/HR Ondansetron HCl (Zofran) 4 mg PRN Q6HRS PRN 12/07/16 16:30 Oxycodone/ Acetaminophen (Percocet 5/325) 1 tab PRN Q4HRS PRN 12/07/16 16:30 Phenylephrine HCl 1 mg STK-MED ONCE 12/08/16 10:25 12/08/16 10:26 DC Piperacillin Sod/ Tazobactam Sod 2.25 gm/Sodium Chloride 50 ml @ 100 mls/hr Q6HRS 12/11/16 12:00 12/12/16 06:35 100 MLS/HR Piperacillin Sod/ Tazobactam Sod 3.375 gm/Sodium Chloride 50 ml @ 100 mls/hr Q6HRS 12/09/16 12:00 12/11/16 07:47 DC 12/11/16 06:01 100 MLS/HR Pneumococcal Polyvalent Vaccine (Do NOT chart on this placeholder) 1 each 1X ONCE 12/07/16 22:45 12/07/16 22:46 UNV Pneumococcal Polyvalent Vaccine (Pneumovax 23) 0.5 ml ONCE ONCE 12/08/16 09:00 12/08/16 09:01 DC Potassium Phosphate/Sodium Chloride (Potassium Phosphate/Iv Sodium Chloride 0.9% 100ml) 104.5333 ml @ 52.267 m... Q2H 12/11/16 09:00 12/11/16 14:59 DC 12/11/16 17:22 52.267 MLS/HR Propofol (Diprivan) 100 ml @ 0 mls/hr CONT PRN 12/08/16 10:00 12/08/16 23:49 3.227 MLS/HR Sodium Bicarbonate 150 meq/Dextrose 1,150 ml @ 100 mls/hr [id number] 12/09/16 09:00 12/10/16 12:14 DC 12/10/16 09:34 100 MLS/HR Sodium Bicarbonate/ Sodium Chloride (Iv Sodium Chloride 0.45%) 1,050 ml @ 200 mls/hr [id number] 12/08/16 10:30 12/09/16 08:28 DC 12/09/16 05:11 200 MLS/HR Sodium Chloride 1,000 ml @ 1,000 mls/hr 1X ONCE 12/08/16 12:15 12/08/16 13:14 DC 12/08/16 11:00 1,000 MLS/HR Sodium Chloride (Iv Sodium Chloride 0.9% 1000ml Bag) 1,000 ml @ 1,000 mls/hr 1X ONCE 12/08/16 11:45 12/08/16 12:44 DC 12/08/16 10:00 1,000 MLS/HR Succinylcholine Chloride 200 mg 200 mg STK-MED ONCE 12/08/16 13:00 12/08/16 13:01 DC Tramadol HCl (Ultram) 50 mg PRN Q6HRS PRN 12/07/16 16:30 12/07/16 17:11 50 MG Vancomycin HCl 1 gm/Sodium Chloride 250 ml @ 250 mls/hr 1X ONCE 12/08/16 14:00 12/08/16 14:59 DC 12/08/16 14:21 250 MLS/HR Zolpidem Tartrate (Ambien) 5 mg PRN QHS PRN 12/07/16 16:30 12/08/16 10:03 DC 12/08/16 01:06 5 MG Lab Laboratory Tests Test 12/12/16 05:30 12/12/16 06:30 12/12/16 08:10 White Blood Count 20.6x10^3/uL (4.0-11.0) Red Blood Count 2.91x10^6/uL (4.30-5.70) Hemoglobin 8.8g/dL (13.0-17.5) Hematocrit 26.5% (39.0-53.0) Mean Corpuscular Volume 91fL (79-100) Mean Corpuscular Hemoglobin 30pg (25-35) Mean Corpuscular Hemoglobin Concent 33g/dL (31-37) Red Cell Distribution Width 14.4% (11.5-14.5) Platelet Count 310x10^3/uL (140-400) Neutrophils (%) (Auto) 90% (31-73) Lymphocytes (%) (Auto) 3% (24-48) Monocytes (%) (Auto) 7% (0-9) Eosinophils (%) (Auto) 0% (0-3) Basophils (%) (Auto) 0% (0-3) Neutrophils # (Auto) 18.4x10^3uL (1.8-7.7) Lymphocytes # (Auto) 0.6x10^3/uL (1.0-4.8) Monocytes # (Auto) 1.4x10^3/uL (0.0-1.1) Eosinophils # (Auto) 0.0x10^3/uL (0.0-0.7) Basophils # (Auto) 0.1x10^3/uL (0.0-0.2) Sodium Level 141mmol/L (136-145) Potassium Level 3.4mmol/L (3.5-5.1) Chloride Level 106mmol/L (98-107) Carbon Dioxide Level 25mmol/L (21-32) Anion Gap 10 (6-14) Blood Urea Nitrogen 49mg/dL (8-26) Creatinine 3.8mg/dL (0.7-1.3) Estimated GFR (Cockcroft-Gault) 20.6 Glucose Level 117mg/dL (70-99) Calcium Level 7.1mg/dL (8.5-10.1) Phosphorus Level 2.6mg/dL (2.6-4.7) Magnesium Level 2.2mg/dL (1.8-2.4) Creatine Kinase 1785U/L (39-308) Albumin 1.1g/dL (3.4-5.0) O2 Saturation 90% (92-99) Arterial Blood pH 7.43 (7.35-7.45) Arterial Blood pCO2 at Patient Temp 35mmHg (35-46) Arterial Blood pO2 at Patient Temp 60mmHg (75-108) Arterial Blood HCO3 23mmol/L (21-28) Arterial Blood Base Excess -1mmol/L (-3-3) FiO2 35 KEVIN BRANDON MD Dec 12, 2016 08:50
--- NOTE | 2016-12-12 08:52 | RAD ---
Indication respiratory failure. A single view of the chest was obtained and is compared to an examination one day earlier. Pulmonary infiltrates persist and appear worse. There are probable bilateral pleural effusions. There is no pneumothorax. Right PICC line with its tip in the proximal SVC is noted, unchanged. Nasogastric tube has its tip beyond the proximal body of the stomach. Endotracheal tube is appropriately positioned above the corey. IMPRESSION: Appropriately positioned support tubes and catheters. Worsening pulmonary infiltrates.
[2016-12-12] MEDS: ASPIRIN 81 MG TAB.CHEW PO SCH (09:48)
[2016-12-12] MEDS: MIDAZOLAM PREMIX 100 ML IV PRN (10:37)
--- NOTE | 2016-12-12 10:52 | PDOC ---
PULMONARY PROGRESS NOTES Subjective on vent ,on sedation, off levo and dopamine, marginal oxygenation Vitals Vital Signs Date Time Temp Pulse Resp B/P Pulse Ox O2 Delivery O2 Flow Rate FiO2 12/12/16 10:00 90 21 124/72 100 Ventilator 12/12/16 08:00 97.5 97.5 12/12/16 04:03 4.0 Comments ros as mentioned as above discussed w rn, off sedation agitated. HEENT: Other (nc at perrl, orally intubated) Lungs: Other (Decrease bs) Cardiovascular: S1, S2 Abdomen: Soft, Non-tender, Other (no mass) Extremities: No Edema Skin: Warm Labs Laboratory Tests Test 12/10/16 12:20 12/10/16 12:30 12/11/16 06:10 12/11/16 08:15 O2 Saturation 93% (92-99) 91% (92-99) Arterial Blood pH 7.40 (7.35-7.45) 7.47 (7.35-7.45) Arterial Blood pCO2 at Patient Temp 42mmHg (35-46) 33mmHg (35-46) Arterial Blood pO2 at Patient Temp 65mmHg (75-108) 61mmHg (75-108) Arterial Blood HCO3 25mmol/L (21-28) 23mmol/L (21-28) Arterial Blood Base Excess 1mmol/L (-3-3) 0mmol/L (-3-3) FiO2 50 35 Urine Protein 145.5mg/dL (Not Estab.) Urine Creatinine 82.0mg/dL (Not Estab.) Urine Protein/Creatinine Ratio 1774mg/g creat (0-200) White Blood Count 21.5x10^3/uL (4.0-11.0) Red Blood Count 3.28x10^6/uL (4.30-5.70) Hemoglobin 10.0g/dL (13.0-17.5) Hematocrit 29.2% (39.0-53.0) Mean Corpuscular Volume 89fL (79-100) Mean Corpuscular Hemoglobin 30pg (25-35) Mean Corpuscular Hemoglobin Concent 34g/dL (31-37) Red Cell Distribution Width 14.0% (11.5-14.5) Platelet Count 314x10^3/uL (140-400) Neutrophils (%) (Auto) 90% (31-73) Lymphocytes (%) (Auto) 3% (24-48) Monocytes (%) (Auto) 7% (0-9) Eosinophils (%) (Auto) 0% (0-3) Basophils (%) (Auto) 0% (0-3) Neutrophils # (Auto) 19.2x10^3uL (1.8-7.7) Lymphocytes # (Auto) 0.7x10^3/uL (1.0-4.8) Monocytes # (Auto) 1.5x10^3/uL (0.0-1.1) Eosinophils # (Auto) 0.0x10^3/uL (0.0-0.7) Basophils # (Auto) 0.1x10^3/uL (0.0-0.2) Sodium Level 141mmol/L (136-145) Potassium Level 3.2mmol/L (3.5-5.1) Chloride Level 107mmol/L (98-107) Carbon Dioxide Level 22mmol/L (21-32) Anion Gap 12 (6-14) Blood Urea Nitrogen 42mg/dL (8-26) Creatinine 3.2mg/dL (0.7-1.3) Estimated GFR (Cockcroft-Gault) 25.1 Glucose Level 108mg/dL (70-99) Calcium Level 6.1mg/dL (8.5-10.1) Phosphorus Level 2.1mg/dL (2.6-4.7) Magnesium Level 2.3mg/dL (1.8-2.4) Creatine Kinase 2386U/L (39-308) Albumin 1.1g/dL (3.4-5.0) Test 12/12/16 05:30 12/12/16 06:30 12/12/16 08:10 White Blood Count 20.6x10^3/uL (4.0-11.0) Red Blood Count 2.91x10^6/uL (4.30-5.70) Hemoglobin 8.8g/dL (13.0-17.5) Hematocrit 26.5% (39.0-53.0) Mean Corpuscular Volume 91fL (79-100) Mean Corpuscular Hemoglobin 30pg (25-35) Mean Corpuscular Hemoglobin Concent 33g/dL (31-37) Red Cell Distribution Width 14.4% (11.5-14.5) Platelet Count 310x10^3/uL (140-400) Neutrophils (%) (Auto) 90% (31-73) Lymphocytes (%) (Auto) 3% (24-48) Monocytes (%) (Auto) 7% (0-9) Eosinophils (%) (Auto) 0% (0-3) Basophils (%) (Auto) 0% (0-3) Neutrophils # (Auto) 18.4x10^3uL (1.8-7.7) Lymphocytes # (Auto) 0.6x10^3/uL (1.0-4.8) Monocytes # (Auto) 1.4x10^3/uL (0.0-1.1) Eosinophils # (Auto) 0.0x10^3/uL (0.0-0.7) Basophils # (Auto) 0.1x10^3/uL (0.0-0.2) Sodium Level 141mmol/L (136-145) Potassium Level 3.4mmol/L (3.5-5.1) Chloride Level 106mmol/L (98-107) Carbon Dioxide Level 25mmol/L (21-32) Anion Gap 10 (6-14) Blood Urea Nitrogen 49mg/dL (8-26) Creatinine 3.8mg/dL (0.7-1.3) Estimated GFR (Cockcroft-Gault) 20.6 Glucose Level 117mg/dL (70-99) Calcium Level 7.1mg/dL (8.5-10.1) Phosphorus Level 2.6mg/dL (2.6-4.7) Magnesium Level 2.2mg/dL (1.8-2.4) Creatine Kinase 1785U/L (39-308) Albumin 1.1g/dL (3.4-5.0) O2 Saturation 90% (92-99) Arterial Blood pH 7.43 (7.35-7.45) Arterial Blood pCO2 at Patient Temp 35mmHg (35-46) Arterial Blood pO2 at Patient Temp 60mmHg (75-108) Arterial Blood HCO3 23mmol/L (21-28) Arterial Blood Base Excess -1mmol/L (-3-3) FiO2 35 Laboratory Tests Test 12/12/16 05:30 12/12/16 06:30 12/12/16 08:10 White Blood Count 20.6x10^3/uL (4.0-11.0) Red Blood Count 2.91x10^6/uL (4.30-5.70) Hemoglobin 8.8g/dL (13.0-17.5) Hematocrit 26.5% (39.0-53.0) Mean Corpuscular Volume 91fL (79-100) Mean Corpuscular Hemoglobin 30pg (25-35) Mean Corpuscular Hemoglobin Concent 33g/dL (31-37) Red Cell Distribution Width 14.4% (11.5-14.5) Platelet Count 310x10^3/uL (140-400) Neutrophils (%) (Auto) 90% (31-73) Lymphocytes (%) (Auto) 3% (24-48) Monocytes (%) (Auto) 7% (0-9) Eosinophils (%) (Auto) 0% (0-3) Basophils (%) (Auto) 0% (0-3) Neutrophils # (Auto) 18.4x10^3uL (1.8-7.7) Lymphocytes # (Auto) 0.6x10^3/uL (1.0-4.8) Monocytes # (Auto) 1.4x10^3/uL (0.0-1.1) Eosinophils # (Auto) 0.0x10^3/uL (0.0-0.7) Basophils # (Auto) 0.1x10^3/uL (0.0-0.2) Sodium Level 141mmol/L (136-145) Potassium Level 3.4mmol/L (3.5-5.1) Chloride Level 106mmol/L (98-107) Carbon Dioxide Level 25mmol/L (21-32) Anion Gap 10 (6-14) Blood Urea Nitrogen 49mg/dL (8-26) Creatinine 3.8mg/dL (0.7-1.3) Estimated GFR (Cockcroft-Gault) 20.6 Glucose Level 117mg/dL (70-99) Calcium Level 7.1mg/dL (8.5-10.1) Phosphorus Level 2.6mg/dL (2.6-4.7) Magnesium Level 2.2mg/dL (1.8-2.4) Creatine Kinase 1785U/L (39-308) Albumin 1.1g/dL (3.4-5.0) O2 Saturation 90% (92-99) Arterial Blood pH 7.43 (7.35-7.45) Arterial Blood pCO2 at Patient Temp 35mmHg (35-46) Arterial Blood pO2 at Patient Temp 60mmHg (75-108) Arterial Blood HCO3 23mmol/L (21-28) Arterial Blood Base Excess -1mmol/L (-3-3) FiO2 35 Medications Active Scripts Medications Dose Route/Sig Days Date Category Percocet 5-325 Mg Tablet (Oxycodone/Acetaminophen) 1 Each Tablet 1-2 Tab PO Q4HRS 05/25/16 Reported Ultram (Tramadol Hcl) 50 Mg Tablet 50 Mg PO Q6H PRN 05/22/16 Rx Robaxin (Methocarbamol) 500 Mg Tablet 500 Mg PO QID 05/22/16 Rx Comments cxr reviewed 12/12 persistent bilateral infiltrates Impression . 1. Acute hypoxemic respiratory failure, multifactorial in etiology.(septic shock, CHF, Metabolic acidosis, Renal failure,Possible pneumonia) 2. Persistent bilateral infiltrates, suspect persistent CHF/ Cannot exclude Pneumonia 3. CMP (EF 30%) 4. Septic shock.off pressors 5. Acute kidney injury. 6. Smoker. 7. History of drug abuse. 8. Status post cardiopulmonary arrest. 9. Hypotension.off pressors 10.Metabolic acidosis, improving Plan . 1. AC mode, not ready for weaning. 2. sedation 3. Bronchodilator, 4. consider Bronch today 5. ID recommendations 6. Continue abx 7. Pepcid and heparin for stress ulcer and DVT prophylaxis. 8. Urine for legionella and strep pneumonia antigen, neg. 9. Urine drug screen, pos.for cocaine 10.Follow Cardiology and nephrology recommendations. Cath today 11. Marginal oxygenation, / May benefit from HD/ trial of lasix /Dobutamine failed The findings and recommendations were discussed with RN and RT. cct 25 min SUZIE MCCRAY MD Dec 12, 2016 10:52
[2016-12-12] MEDS: ACETYLCYSTEINE 20% ORAL SOLN 600 MG/3 ML SYRINGE. PO SCH ×2 (11:54→21:56)
[2016-12-12] MEDS: POTASSIUM CHLORIDE 20MEQ 50 ML IV SCH ×2 (11:54→13:16)
[2016-12-12] MEDS ORDERED: LIDOCAINE 1% / SOD BICARB 8.4% 20 ML VIAL. IJ ONE ×2 (12:13→12:15)
--- NOTE | 2016-12-12 14:31 | OP ---
DATE OF SURGERY: INDICATIONS: Persistent infiltrates. DESCRIPTION OF PROCEDURE: Informed consent was obtained from the patient's , she agreed to proceed with the procedure. The patient was already intubated on mechanical ventilation. Bronchoscope was introduced via endotracheal tube. Secretions were aspirated from the distal trachea. Upon visualization of tracheal mucosa, it was severely inflamed and there were some white patches seen in the trachea proximally. No tracheal lesions seen. The corey was sharp. Right lung was examined. There was some mucosal inflammation in the upper airway and some creamy secretions seen in the right lower lobe and right upper lobe. Secretions were removed. Bronchoalveolar lavage performed from right lower lobe. Bronchoscope was introduced into the left lung. Minimal white secretions and mucosal inflammation seen in the proximal left mainstem. No definite endobronchial lesions seen. Bronchoalveolar lavage performed from the lingula and left lower lobe. IMPRESSION: 1. Diffuse tracheitis. This could be seen in acid aspiration or inhalation injury with drugs such as cocaine, which patient was using it. Possibility of viral infection cannot be ruled out. 2. No definite endobronchial lesion seen. 3. Mild mucosal inflammation in both the mainstem along with creamy secretions in the lower lobes. 4. Bronchoalveolar lavage performed from right lower lobe, left lower lobe and lingula and sent for appropriate studies. SUZIE MCCRAY MD DR: SOPHIE/noé JOB#: [id number] / [id number] MELONY
[2016-12-12] MEDS ORDERED: HEPARIN for ARTERIAL LINE 1,500 ML ONE (15:03)
[2016-12-12] MEDS ORDERED: LIDOCAINE 2% 20 ML VIAL. ONE (15:03)
[2016-12-12] MEDS ORDERED: IODIXANOL 320 MG/ML 100 ML VIAL. ONE (15:04)
[2016-12-12] MEDS ORDERED: IODIXANOL 320 MG/ML 100 ML VIAL. IART ONE (15:30)
[2016-12-12] MEDS ORDERED: LIDOCAINE 2% 20 ML VIAL. IJ ONE (15:30)
--- NOTE | 2016-12-12 17:10 | CARD ---
APPROVED REPORT Procedure(s) performed: Left Heart Catheterization + coronary angiography Right Heart Catheterization HISTORY The patient is a 51 year-old male with a history of : renal failure with dialysis, tobacco history() : The patient is a current smoker, family history of premature CAD. INDICATION The indication(s) include : non-STEMI (>72 hrs to = 7 days). CASE TECHNIQUE The patient was brought urgently into the cardiac catheterization lab. A timeout was performed confir carson the patient's name, date of , procedure, and site of procedure. All necessary parties were wearing the appropriate personal protective equipment and radiation monitoring devices. After explain ing the risks and benefits of the procedure, informed consent was obtained.(See nursing notes for med ications administered). The right groin was sterilely prepped and draped. The right femoral groin was infiltrated with 2% Lidocaine subcutaneous anesthesia. During this case, Fluoroscopy and low osmolar contrast were used for imaging. A 6F/8fr sheath was inserted into the right femoral artery and vein without difficulty. Coronary angiography was performed using coronary diagnostic catheters. The left coronary system was accessed and visualized with a J4 catheter. The right coronary system was accesse d and visualized with a JR4 catheter. The left ventricle was accessed and visualized with a pigtail c atheter catheter. A Right Heart Catheterization was performed with a 7.5 Fr. [place]-Adamaris catheter and p ressure were recorded. Cardiac outputs were obtained by the Jerrod method. Pre-demployment femoral jailyn ogram was performed and revealed adequate anatomy. Closure device was deployed with a Angioseal witho ut any complications. Hemostasis was obtained with manual pressure following sheath removal without a ny complications. The patient tolerated the procedure well and there were no complications associated with the procedure. Coronary Angiography The patient's coronary anatomy is right dominant. The left main coronary artery is a large size vessel without significant stenosis. The left main bifu rcates to the left anterior descending and circumflex. The left anterior descending artery is a medium size vessel without significant stenosis. The circumflex artery is a medium size vessel without significant stenosis. The right coronary artery is a medium size vessel without significant stenosis. Left Ventriculography The left ventricular end diastolic pressure is 30 mmHg. There was no gradient across the aortic valve upon pullback. Right Heart Cath Findings The Right Atrial Pressure is 20 mmHg. The Right Ventricular Pressure is 50/30 mmHg. The Pulmonary Art azra Pressure is 50/29 mmHg. The Pulmonary Catheter Wedge Pressure is 25 mmHg. The cardiac output and index were assessed using the Jerrod method. The Cardiac Output is 6.00 L/min. Conclusion 1. Elevated biventricular filling pressures. 2. Normal cardiac output. 3. Normal angiographic appearance of the coronary arteries. Recommendations Aggressive Medical Therapy
[2016-12-12 18:35] LABS: BILIRUBIN,URINE NEGATIVE (NEG); GLUCOSE,URINE NEGATIVE (NEG); NITRITE,URINE NEGATIVE (NEG); PROTEIN,URINE 100 mg/dL (NEG-TRACE); UROBILINOGEN,URINE 0.2 mg/dL (0.2 mg/dL)
[2016-12-12 18:36] LABS: BACTERIA,URINE FEW /HPF (0-FEW)
--- NOTE | 2016-12-12 18:42 | PDOC ---
PROGRESS NOTES Chief Complaint Chief Complaint Chief Complaint: - Weakness, dehydration - Cardiac arrest PEA (12/08); TTE EF of 30-35% - Acute respiratory failure, likely multifactorial; On mechanical Ventilation ( 12/08)- possible aspiration pneumonia. Possible ARDS vs pulmonary edema vs PNA - ASHLEY - Septic shock, multiorgan failure, Off pressor support - Cardiomyopathy - Metabolic acidosis - Polysubstance abuse - Elevated troponin - Hypocalcemia. History of Present Illness History of Present Illness 51 year old male sedated on vent, settings AC/Rate- 22/ Tidal Vol - 500/ 100% FiO2 with 5.0 PEEP/ O2 sat- 99%. Discussed case with nursing. Currently getting a Bronchoscopy Vitals Vitals Vital Signs Date Time Temp Pulse Resp B/P Pulse Ox O2 Delivery O2 Flow Rate FiO2 12/12/16 18:00 81 22 107/60 100 Ventilator 12/12/16 16:00 98.0 98.0 12/12/16 04:03 4.0 Physical Exam Physical Exam Pupils reactive to light General: No acute distress, Other (Intubated/sedated ) Heart: Regular rate, Normal S1, Normal S2 Lungs: Other (Decrease bs) Abdomen: Normal bowel sounds, Soft, No tenderness Extremities: No clubbing, No cyanosis, No edema Skin: No rashes, No significant lesion Labs LABS Laboratory Tests Test 12/12/16 05:30 12/12/16 06:30 12/12/16 08:10 12/12/16 17:21 White Blood Count 20.6x10^3/uL (4.0-11.0) Red Blood Count 2.91x10^6/uL (4.30-5.70) Hemoglobin 8.8g/dL (13.0-17.5) Hematocrit 26.5% (39.0-53.0) Mean Corpuscular Volume 91fL (79-100) Mean Corpuscular Hemoglobin 30pg (25-35) Mean Corpuscular Hemoglobin Concent 33g/dL (31-37) Red Cell Distribution Width 14.4% (11.5-14.5) Platelet Count 310x10^3/uL (140-400) Neutrophils (%) (Auto) 90% (31-73) Lymphocytes (%) (Auto) 3% (24-48) Monocytes (%) (Auto) 7% (0-9) Eosinophils (%) (Auto) 0% (0-3) Basophils (%) (Auto) 0% (0-3) Neutrophils # (Auto) 18.4x10^3uL (1.8-7.7) Lymphocytes # (Auto) 0.6x10^3/uL (1.0-4.8) Monocytes # (Auto) 1.4x10^3/uL (0.0-1.1) Eosinophils # (Auto) 0.0x10^3/uL (0.0-0.7) Basophils # (Auto) 0.1x10^3/uL (0.0-0.2) Sodium Level 141mmol/L (136-145) Potassium Level 3.4mmol/L (3.5-5.1) Chloride Level 106mmol/L (98-107) Carbon Dioxide Level 25mmol/L (21-32) Anion Gap 10 (6-14) Blood Urea Nitrogen 49mg/dL (8-26) Creatinine 3.8mg/dL (0.7-1.3) Estimated GFR (Cockcroft-Gault) 20.6 Glucose Level 117mg/dL (70-99) Calcium Level 7.1mg/dL (8.5-10.1) Phosphorus Level 2.6mg/dL (2.6-4.7) Magnesium Level 2.2mg/dL (1.8-2.4) Creatine Kinase 1785U/L (39-308) Albumin 1.1g/dL (3.4-5.0) O2 Saturation 90% (92-99) Arterial Blood pH 7.43 (7.35-7.45) Arterial Blood pCO2 at Patient Temp 35mmHg (35-46) Arterial Blood pO2 at Patient Temp 60mmHg (75-108) Arterial Blood HCO3 23mmol/L (21-28) Arterial Blood Base Excess -1mmol/L (-3-3) FiO2 35 Urine Collection Type Unknown Urine Color Yellow Urine Clarity Cloudy Urine pH 6.0 Urine Specific [place] 1.025 Urine Protein 100mg/dL (NEG-TRACE) Urine Glucose (UA) Negativemg/dL (NEG) Urine Ketones (Stick) Negativemg/dL (NEG) Urine Blood Moderate (NEG) Urine Nitrite Negative (NEG) Urine Bilirubin Negative (NEG) Urine Urobilinogen Dipstick 0.2mg/dL (0.2 mg/dL) Urine Leukocyte Esterase Small (NEG) Urine RBC 6-10/HPF (0-2) Urine WBC 5-10/HPF (0-4) Urine Amorphous Sediment Present/HPF Urine Bacteria Few/HPF (0-FEW) Urine Granular Casts Moderate/HPF Test 12/12/16 17:55 Potassium Level 3.8mmol/L (3.5-5.1) Review of Systems Review of Systems unobtainable Assessment and Plan Assessmemt and Plan Problems Medical Problems: (1) ARF (acute renal failure) Status: Acute (2) CAP (community acquired pneumonia) Status: Acute - Weakness, dehydration - Cardiac arrest PEA (12/08); TTE EF of 30-35% - Acute respiratory failure, likely multifactorial; On mechanical Ventilation ( 12/08)- possible aspiration pneumonia. Possible ARDS vs pulmonary edema vs PNA - ASHLEY - Septic shock, multiorgan failure, Off pressor support - Cardiomyopathy - Metabolic acidosis - Polysubstance abuse - Elevated troponin - Hypocalcemia. Plan Await bronch results ICU monitor Wean off vent Recheck labs LTAC eval Prog guarded Problems: Comment Review of Relevant I have reviewed the following items immanuel (where applicable) has been applied. Labs Laboratory Tests Test 12/11/16 06:10 12/11/16 08:15 12/12/16 05:30 12/12/16 06:30 White Blood Count 21.5x10^3/uL (4.0-11.0) 20.6x10^3/uL (4.0-11.0) Red Blood Count 3.28x10^6/uL (4.30-5.70) 2.91x10^6/uL (4.30-5.70) Hemoglobin 10.0g/dL (13.0-17.5) 8.8g/dL (13.0-17.5) Hematocrit 29.2% (39.0-53.0) 26.5% (39.0-53.0) Mean Corpuscular Volume 89fL (79-100) 91fL (79-100) Mean Corpuscular Hemoglobin 30pg (25-35) 30pg (25-35) Mean Corpuscular Hemoglobin Concent 34g/dL (31-37) 33g/dL (31-37) Red Cell Distribution Width 14.0% (11.5-14.5) 14.4% (11.5-14.5) Platelet Count 314x10^3/uL (140-400) 310x10^3/uL (140-400) Neutrophils (%) (Auto) 90% (31-73) 90% (31-73) Lymphocytes (%) (Auto) 3% (24-48) 3% (24-48) Monocytes (%) (Auto) 7% (0-9) 7% (0-9) Eosinophils (%) (Auto) 0% (0-3) 0% (0-3) Basophils (%) (Auto) 0% (0-3) 0% (0-3) Neutrophils # (Auto) 19.2x10^3uL (1.8-7.7) 18.4x10^3uL (1.8-7.7) Lymphocytes # (Auto) 0.7x10^3/uL (1.0-4.8) 0.6x10^3/uL (1.0-4.8) Monocytes # (Auto) 1.5x10^3/uL (0.0-1.1) 1.4x10^3/uL (0.0-1.1) Eosinophils # (Auto) 0.0x10^3/uL (0.0-0.7) 0.0x10^3/uL (0.0-0.7) Basophils # (Auto) 0.1x10^3/uL (0.0-0.2) 0.1x10^3/uL (0.0-0.2) Sodium Level 141mmol/L (136-145) 141mmol/L (136-145) Potassium Level 3.2mmol/L (3.5-5.1) 3.4mmol/L (3.5-5.1) Chloride Level 107mmol/L (98-107) 106mmol/L (98-107) Carbon Dioxide Level 22mmol/L (21-32) 25mmol/L (21-32) Anion Gap 12 (6-14) 10 (6-14) Blood Urea Nitrogen 42mg/dL (8-26) 49mg/dL (8-26) Creatinine 3.2mg/dL (0.7-1.3) 3.8mg/dL (0.7-1.3) Estimated GFR (Cockcroft-Gault) 25.1 20.6 Glucose Level 108mg/dL (70-99) 117mg/dL (70-99) Calcium Level 6.1mg/dL (8.5-10.1) 7.1mg/dL (8.5-10.1) Phosphorus Level 2.1mg/dL (2.6-4.7) 2.6mg/dL (2.6-4.7) Magnesium Level 2.3mg/dL (1.8-2.4) 2.2mg/dL (1.8-2.4) Creatine Kinase 2386U/L (39-308) 1785U/L (39-308) Albumin 1.1g/dL (3.4-5.0) 1.1g/dL (3.4-5.0) O2 Saturation 91% (92-99) Arterial Blood pH 7.47 (7.35-7.45) Arterial Blood pCO2 at Patient Temp 33mmHg (35-46) Arterial Blood pO2 at Patient Temp 61mmHg (75-108) Arterial Blood HCO3 23mmol/L (21-28) Arterial Blood Base Excess 0mmol/L (-3-3) FiO2 35 Test 12/12/16 08:10 12/12/16 17:21 12/12/16 17:55 O2 Saturation 90% (92-99) Arterial Blood pH 7.43 (7.35-7.45) Arterial Blood pCO2 at Patient Temp 35mmHg (35-46) Arterial Blood pO2 at Patient Temp 60mmHg (75-108) Arterial Blood HCO3 23mmol/L (21-28) Arterial Blood Base Excess -1mmol/L (-3-3) FiO2 35 Urine Collection Type Unknown Urine Color Yellow Urine Clarity Cloudy Urine pH 6.0 Urine Specific [place] 1.025 Urine Protein 100mg/dL (NEG-TRACE) Urine Glucose (UA) Negativemg/dL (NEG) Urine Ketones (Stick) Negativemg/dL (NEG) Urine Blood Moderate (NEG) Urine Nitrite Negative (NEG) Urine Bilirubin Negative (NEG) Urine Urobilinogen Dipstick 0.2mg/dL (0.2 mg/dL) Urine Leukocyte Esterase Small (NEG) Urine RBC 6-10/HPF (0-2) Urine WBC 5-10/HPF (0-4) Urine Amorphous Sediment Present/HPF Urine Bacteria Few/HPF (0-FEW) Urine Granular Casts Moderate/HPF Potassium Level 3.8mmol/L (3.5-5.1) Laboratory Tests Test 12/12/16 05:30 12/12/16 06:30 12/12/16 08:10 12/12/16 17:21 White Blood Count 20.6x10^3/uL (4.0-11.0) Red Blood Count 2.91x10^6/uL (4.30-5.70) Hemoglobin 8.8g/dL (13.0-17.5) Hematocrit 26.5% (39.0-53.0) Mean Corpuscular Volume 91fL (79-100) Mean Corpuscular Hemoglobin 30pg (25-35) Mean Corpuscular Hemoglobin Concent 33g/dL (31-37) Red Cell Distribution Width 14.4% (11.5-14.5) Platelet Count 310x10^3/uL (140-400) Neutrophils (%) (Auto) 90% (31-73) Lymphocytes (%) (Auto) 3% (24-48) Monocytes (%) (Auto) 7% (0-9) Eosinophils (%) (Auto) 0% (0-3) Basophils (%) (Auto) 0% (0-3) Neutrophils # (Auto) 18.4x10^3uL (1.8-7.7) Lymphocytes # (Auto) 0.6x10^3/uL (1.0-4.8) Monocytes # (Auto) 1.4x10^3/uL (0.0-1.1) Eosinophils # (Auto) 0.0x10^3/uL (0.0-0.7) Basophils # (Auto) 0.1x10^3/uL (0.0-0.2) Sodium Level 141mmol/L (136-145) Potassium Level 3.4mmol/L (3.5-5.1) Chloride Level 106mmol/L (98-107) Carbon Dioxide Level 25mmol/L (21-32) Anion Gap 10 (6-14) Blood Urea Nitrogen 49mg/dL (8-26) Creatinine 3.8mg/dL (0.7-1.3) Estimated GFR (Cockcroft-Gault) 20.6 Glucose Level 117mg/dL (70-99) Calcium Level 7.1mg/dL (8.5-10.1) Phosphorus Level 2.6mg/dL (2.6-4.7) Magnesium Level 2.2mg/dL (1.8-2.4) Creatine Kinase 1785U/L (39-308) Albumin 1.1g/dL (3.4-5.0) O2 Saturation 90% (92-99) Arterial Blood pH 7.43 (7.35-7.45) Arterial Blood pCO2 at Patient Temp 35mmHg (35-46) Arterial Blood pO2 at Patient Temp 60mmHg (75-108) Arterial Blood HCO3 23mmol/L (21-28) Arterial Blood Base Excess -1mmol/L (-3-3) FiO2 35 Urine Collection Type Unknown Urine Color Yellow Urine Clarity Cloudy Urine pH 6.0 Urine Specific [place] 1.025 Urine Protein 100mg/dL (NEG-TRACE) Urine Glucose (UA) Negativemg/dL (NEG) Urine Ketones (Stick) Negativemg/dL (NEG) Urine Blood Moderate (NEG) Urine Nitrite Negative (NEG) Urine Bilirubin Negative (NEG) Urine Urobilinogen Dipstick 0.2mg/dL (0.2 mg/dL) Urine Leukocyte Esterase Small (NEG) Urine RBC 6-10/HPF (0-2) Urine WBC 5-10/HPF (0-4) Urine Amorphous Sediment Present/HPF Urine Bacteria Few/HPF (0-FEW) Urine Granular Casts Moderate/HPF Test 12/12/16 17:55 Potassium Level 3.8mmol/L (3.5-5.1) Microbiology 12/07/16 Blood Culture - Final, Complete NO GROWTH AFTER 5 DAYS 12/07/16 Stool Culture - Final, Complete 12/07/16 Stool Culture Result 1 (NEFTALI) - Final, Complete 12/07/16 Campylobacter Antigen Assay - Final, Complete 12/07/16 Campylobactor Result 1 - Final, Complete 12/07/16 Shiga Toxin Test - Final, Complete 12/12/16 Gram Stain - Final, Complete Medications Current Medications Ketorolac Tromethamine 30 mg 30 mg 1X ONCE IV Last administered on 12/07/16 14:34; Start 12/07/16 at 14:30; Stop 12/07/16 at 14:31; Status DC Sodium Chloride 1,000 ml @ 1,000 mls/hr 1X ONCE IV Last administered on 14:34; Start 12/07/16 at 14:30; Stop 12/07/16 at 15:29; Status DC Ceftriaxone Sodium 1 gm/ Sodium Chloride 50 ml @ 100 mls/hr Q24H IV ; Start at 15:30; Stop 12/08/16 at 15:30; Status DC Azithromycin 250 ml @ 250 mls/hr 1X ONCE IV Last administered on 12/07/16 15 :48; Start 12/07/16 at 15:15; Stop 12/07/16 at 16:14; Status DC Sodium Chloride 1,000 ml @ 1,000 mls/hr 1X ONCE IV Last administered on 16:09; Start 12/07/16 at 15:15; Stop 12/07/16 at 16:14; Status DC Ceftriaxone Sodium 50 ml @ 100 mls/hr 1X ONCE IV Last administered on 15:29; Start 12/07/16 at 15:15; Stop 12/07/16 at 15:44; Status DC Sodium Chloride (Iv Sodium Chloride 0.9% 1000ml Bag) 1,000 ml @ 150 mls/hr 1X ONCE IV Last administered on 12/07/16 18:10; Start 12/07/16 at 15:15; Stop 11/11 at 21:54; Status DC Famotidine (Pepcid) 20 mg 1X ONCE IVP Last administered on 12/07/16 15:48; Start 12/07/16 at 15:45; Stop 12/07/16 at 15:46; Status DC Ondansetron HCl 4 mg 4 mg 1X ONCE IV Last administered on 12/07/16 16:09; Start 12/07/16 at 16:15; Stop 12/07/16 at 16:16; Status DC Sodium Chloride (Iv Sodium Chloride 0.9% 1000ml Bag) 1,000 ml @ 150 mls/hr Q6H40M IV Last administered on 12/08/16 06:38; Start 12/07/16 at 16:30; Stop 12/08/16 at 14:21; Status DC Ondansetron HCl (Zofran) 4 mg PRN Q6HRS PRN IV NAUSEA/VOMITING; Start 12/07/16 at 16:30 Acetaminophen (Tylenol) 500 mg PRN Q6HRS PRN PO MILD PAIN / TEMP Last administered on 12/09/16 15:04; Start 12/07/16 at 16:30 Morphine Sulfate 2 mg PRN Q2HR PRN IV PAIN Last administered on 12/08/16 05:28 ; Start 12/07/16 at 16:30 Zolpidem Tartrate (Ambien) 5 mg PRN QHS PRN PO INSOMNIA Last administered on 01:06; Start 12/07/16 at 16:30; Stop 12/08/16 at 10:03; Status DC Methocarbamol (Robaxin) 500 mg QID PO Last administered on 12/07/16 21:19; Start 12/07/16 at 17:00; Stop 12/08/16 at 10:03; Status DC Oxycodone/ Acetaminophen (Percocet 5/325) 1 tab PRN Q4HRS PRN PO SEVERE PAIN; Start 12/07/16 at 16:30 Tramadol HCl (Ultram) 50 mg PRN Q6HRS PRN PO MODERATE PAIN Last administered on 12/07/16 17:11; Start 12/07/16 at 16:30 Nicotine (Nicoderm Cq 21mg) 1 patch PRN DAILY PRN TD SMOKING CESSATION; Start 12/07/16 at 16:30 Info (Do NOT chart on this placeholder) 1 each 1X ONCE MC ; Start 12/07/16 at 22:45; Stop 12/07/16 at 22:46; Status UNV Pneumococcal Polyvalent Vaccine (Do NOT chart on this placeholder) 1 each 1X ONCE MC ; Start 12/07/16 at 22:45; Stop 12/07/16 at 22:46; Status UNV Influenza Virus Vaccine Quadrival (Fluarix Quad [id number] Syringe) 0.5 ml ONCE ONCE VAX IM ; Start 12/08/16 at 09:00; Stop 12/08/16 at 09:01; Status DC Pneumococcal Polyvalent Vaccine (Pneumovax 23) 0.5 ml ONCE ONCE VAX IM ; Start 12/08/16 at 09:00; Stop 12/08/16 at 09:01; Status DC Labetalol HCl (Normodyne) 10 mg 1X ONCE IVP Last administered on 12/08/16 08: 56; Start 12/08/16 at 08:30; Stop 12/08/16 at 08:35; Status DC Alprazolam (Xanax) 0.5 mg 1X ONCE PO Last administered on 12/08/16 08:40; Start 12/08/16 at 08:45; Stop 12/08/16 at 08:46; Status DC Aspirin (Children'S Aspirin) 324 mg 1X ONCE PO Last administered on 12/08/16 13:44; Start 12/08/16 at 09:30; Stop 12/08/16 at 09:31; Status DC Aspirin (Jada Aspirin) 325 mg DAILYWBKFT PO ; Start 12/09/16 at 08:00; Stop at 08:00; Status DC Heparin Sodium (Porcine) 4000 unit 4,000 unit 1X ONCE IV ; Start 12/08/16 at 09 :30; Stop 12/08/16 at 14:21; Status DC Midazolam HCl 100 ml @ As Directed STK-MED ONCE IV ; Start 12/08/16 at 09:52; Stop 12/08/16 at 09:53; Status DC Propofol (Diprivan) 100 ml @ 0 mls/hr CONT PRN IV SEE I/O RECORD Last administered on 12/08/16 23:49; Start 12/08/16 at 10:00 Famotidine (Pepcid) 20 mg QHS IVP Last administered on 12/12/16 00:20; Start 12/08/16 at 21:00 Heparin Sodium (Porcine) 5000 unit 5,000 unit Q8HRS SQ ; Start 12/08/16 at 14:00 ; Stop 12/08/16 at 14:00; Status DC Norepinephrine Bitartrate 8 mg/ Sodium Chloride 258 ml @ 1.93 mls/hr CONT PRN IV SEE I/O RECORD; Start 12/08/16 at 10:15; Status Cancel Dopamine HCl/ Dextrose 250 ml @ As Directed STK-MED ONCE IV ; Start 12/08/16 at 10:07; Stop 12/08/16 at 10:08; Status DC Norepinephrine Bitartrate 8 mg/ Sodium Chloride 258 ml @ 0 mls/hr CONT PRN IV SEE I/O RECORD Last administered on 12/09/16 08:46; Start 12/08/16 at 10:15; Stop 12/09/16 at 11:47; Status DC Dopamine HCl/ Dextrose 250 ml @ 10.084 mls/ hr CONT PRN IV SEE I/O RECORD Last administered on 12/08/16 10:00; Start 12/08/16 at 10:15 Sodium Bicarbonate/ Sodium Chloride (Iv Sodium Chloride 0.45%) 1,050 ml @ 200 mls/hr Q5H15M IV Last administered on 12/09/16 05:11; Start 12/08/16 at 10:30 ; Stop 12/09/16 at 08:28; Status DC Phenylephrine HCl 1 mg STK-MED ONCE IV ; Start 12/08/16 at 10:25; Stop 12/08/16 at 10:26; Status DC Aspirin 300 mg 300 mg 1X ONCE VT ; Start 12/08/16 at 10:45; Stop 12/08/16 at 10 :46; Status DC Sodium Chloride 1,000 ml @ 1,000 mls/hr 1X ONCE IV Last administered on 10:00; Start 12/08/16 at 11:45; Stop 12/08/16 at 12:44; Status DC Sodium Chloride (Iv Sodium Chloride 0.9% 1000ml Bag) 1,000 ml @ 1,000 mls/hr 1X ONCE IV Last administered on 12/08/16 10:00; Start 12/08/16 at 11:45; Stop 12/08/16 at 12:44; Status DC Albuterol/ Ipratropium (Duoneb) 3 ml RTQID NEB Last administered on 12/08/16 19:44; Start 12/08/16 at 12:30; Stop 12/09/16 at 05:17; Status DC Budesonide 0.5 mg 0.5 mg RTBID NEB Last administered on 12/12/16 07:30; Start 12/08/16 at 12:30 Sodium Chloride 1,000 ml @ 1,000 mls/hr 1X ONCE IV Last administered on 11:00; Start 12/08/16 at 12:15; Stop 12/08/16 at 13:14; Status DC Sodium Chloride 1,000 ml @ 1,000 mls/hr 1X ONCE IV Last administered on 11:00; Start 12/08/16 at 12:15; Stop 12/08/16 at 13:14; Status DC Heparin Sodium/ Dextrose 500 ml @ 0 mls/hr CONT PRN IV SEE I/O RECORD Last administered on 12/09/16 13:11; Start 12/08/16 at 12:45 Heparin Sodium (Porcine) 1,350 unit PRN Q6HRS PRN IV FOR UFH LEVEL LESS THAN 0.2 Last administered on 12/09/16 05:47; Start 12/08/16 at 12:45 Etomidate (Amidate) 20 mg STK-MED ONCE IV ; Start 12/08/16 at 13:00; Stop at 13:01; Status DC Succinylcholine Chloride 200 mg 200 mg STK-MED ONCE .ROUTE ; Start 12/08/16 at 13:00; Stop 12/08/16 at 13:01; Status DC Piperacillin Sod/ Tazobactam Sod 3.375 gm/Sodium Chloride 50 ml @ 100 mls/hr Q6HRS IV ; Start 12/08/16 at 18:00; Stop 12/08/16 at 18:00; Status DC Vancomycin HCl 1 gm/Sodium Chloride 250 ml @ 250 mls/hr 1X ONCE IV Last administered on 12/08/16 14:21; Start 12/08/16 at 14:00; Stop 12/08/16 at 14:59 ; Status DC Piperacillin Sod/ Tazobactam Sod 2.25 gm/Sodium Chloride 50 ml @ 100 mls/hr Q6HRS IV Last administered on 12/09/16 06:17; Start 12/08/16 at 14:00; Stop at 08:25; Status DC Midazolam HCl 100 ml @ 0 mls/hr CONT PRN IV SEE I/O RECORD Last administered on 12/12/16 10:37; Start 12/08/16 at 10:30 Fentanyl Citrate (Fentanyl 600 Mcg/30 ml PRINCIPAL INVESTIGATOR) 30 ml @ 0 mls/hr CONT PRN IV PROTOCOL Last administered on 12/12/16 13:46; Start 12/09/16 at 05:15 Fentanyl Citrate (Fentanyl 2ml Vial) 25 mcg PRN Q1HR PRN IV COMM; Start at 05:15 Fentanyl Citrate (Fentanyl 2ml Vial) 50 mcg PRN Q1HR PRN IV COMM; Start at 05:15 Ipratropium [place] (Atrovent) 0.5 mg RTQID NEB Last administered on 12/12/16 16:09; Start 12/09/16 at 08:00 Aspirin (Children'S Aspirin) 81 mg DAILYWBKFT PO Last administered on 09:48; Start 12/09/16 at 08:00 Chlorhexidine Gluconate 15 ml 15 ml BID MM Last administered on 12/12/16 09:48 ; Start 12/09/16 at 09:00 Sodium Bicarbonate 150 meq/Dextrose 1,150 ml @ 100 mls/hr [id number] IV Last administered on 12/10/16 09:34; Start 12/09/16 at 09:00; Stop 12/10/16 at 12:14 ; Status DC Piperacillin Sod/ Tazobactam Sod 3.375 gm/Sodium Chloride 50 ml @ 100 mls/hr Q6HRS IV Last administered on 12/11/16 06:01; Start 12/09/16 at 12:00; Stop at 07:47; Status DC Norepinephrine Bitartrate 16 mg/ Sodium Chloride 266 ml @ 0.99 mls/hr CONT PRN IV SEE I/O RECORD Last administered on 12/09/16 20:36; Start 12/09/16 at 12 :00 Doxycycline Hyclate/Dextrose 100 ml @ 50 mls/hr Q12HR IV Last administered on 12/12/16 09:48; Start 12/09/16 at 13:00 Atropine Sulfate 0.5 mg STK-MED ONCE .ROUTE ; Start 12/08/16 at 10:30; Stop at 13:18; Status DC Epinephrine HCl 3 mg STK-MED ONCE .ROUTE ; Start 12/08/16 at 10:30; Stop at 13:18; Status DC Calcium Gluconate 1000 mg 1,000 mg 1X ONCE IVP ; Start 12/10/16 at 10:00; Stop 12/10/16 at 10:01; Status UNV Magnesium Sulfate/ Dextrose 50 ml @ 25 mls/hr 1X ONCE IV Last administered on 12/10/16 11:40; Start 12/10/16 at 12:00; Stop 12/10/16 at 13:59; Status DC Calcium Gluconate 1000 mg/Sodium Chloride 110 ml @ 220 mls/hr 1X ONCE IV Last administered on 12/10/16 11:36; Start 12/10/16 at 12:00; Stop 12/10/16 at 12:29; Status DC Magnesium Sulfate/ Dextrose 50 ml @ 25 mls/hr PRN DAILY PRN IV for Mag < 1.7 on am labs; Start 12/10/16 at 12:15 Amino Acids/ Glycerin/ Electrolytes 1,000 ml @ 80 mls/hr [id number] IV ; Start at 12:30; Stop 12/10/16 at 12:30; Status DC Albumin Human (Albuminar) 100 ml @ 100 mls/hr TID IV ; Start 12/10/16 at 14:00 ; Stop 12/10/16 at 14:00; Status DC Calcium Gluconate 2000 mg 2,000 mg TID IVP ; Start 12/10/16 at 14:00; Stop 12/10 at 14:00; Status DC Piperacillin Sod/ Tazobactam Sod 2.25 gm/Sodium Chloride 50 ml @ 100 mls/hr Q6HRS IV Last administered on 12/12/16 17:14; Start 12/11/16 at 12:00 Linezolid (Zyvox Premix) 300 ml @ 300 mls/hr Q12HR IV Last administered on 09:47; Start 12/11/16 at 09:00 Info 1 each 1 each PRN DAILY PRN MC SEE COMMENTS Last administered on 08:21; Start 12/11/16 at 08:15 Potassium Phosphate/Sodium Chloride (Potassium Phosphate/Iv Sodium Chloride 0.9 % 100ml) 104.5333 ml @ 52.267 m... Q2H IV Last administered on 12/11/16 17:22 ; Start 12/11/16 at 09:00; Stop 12/11/16 at 14:59; Status DC Furosemide 20 mg 20 mg 1X ONCE IVP Last administered on 12/11/16 11:10; Start 12/11/16 at 10:00; Stop 12/11/16 at 10:03; Status DC Dobutamine HCl/ Dextrose 250 ml @ 0 mls/hr CONT PRN IV SEE I/O RECORD Last administered on 12/11/16 15:05; Start 12/11/16 at 14:45 Magnesium Sulfate/ Dextrose 50 ml @ 25 mls/hr PRN DAILY PRN IV for Mag < 1.7 on am labs; Start 12/12/16 at 08:45 Potassium Chloride 50 ml @ 50 mls/hr PRN Q6HRS PRN IV For K < 3.7; Start at 08:45 Potassium Chloride (KCl Premix 20meq) 50 ml @ 50 mls/hr PRN Q2HR PRN IV total of 40mEq for K < 3.5; Start 12/12/16 at 08:45 Acetylcysteine 1200 mg 1,200 mg BID PO Last administered on 12/12/16 11:54; Start 12/12/16 at 09:00; Stop 12/14/16 at 08:59 Potassium Chloride (KCl Premix 20meq) 50 ml @ 50 mls/hr Q1H IV Last administered on 12/12/16 13:16; Start 12/12/16 at 09:00; Stop 12/12/16 at 10:59 ; Status DC Lidocaine/Sodium Bicarbonate 20 ml 20 ml STK-MED ONCE IJ ; Start 12/12/16 at 12: 13; Stop 12/12/16 at 12:14; Status DC Heparin Sodium/ Sodium Chloride 500 ml @ As Directed STK-MED ONCE .ROUTE ; Start 12/12/16 at 12:14; Stop 12/12/16 at 12:15; Status DC Lidocaine/Sodium Bicarbonate (Buffered Lidocaine 1%) 3 ml 1X ONCE IJ Last administered on 12/12/16 13:08; Start 12/12/16 at 12:15; Stop 12/12/16 at 12:17 ; Status DC Heparin Sodium (Porcine) 2,500 unit 1X ONCE INT CAT Last administered on 13:08; Start 12/12/16 at 12:15; Stop 12/12/16 at 12:17; Status DC Heparin Sodium/ Sodium Chloride 60 unit 60 unit 1X ONCE IV Last administered on 12/12/16 12:15; Start 12/12/16 at 12:15; Stop 12/12/16 at 12:17; Status DC Heparin Sodium/ Sodium Chloride 1,500 ml @ As Directed STK-MED ONCE .ROUTE ; Start 12/12/16 at 15:03; Stop 12/12/16 at 15:04; Status DC Lidocaine HCl 20 ml STK-MED ONCE .ROUTE ; Start 12/12/16 at 15:03; Stop at 15:04; Status DC Iodixanol (Visipaque 320) 100 ml STK-MED ONCE .ROUTE ; Start 12/12/16 at 15:04; Stop 12/12/16 at 15:05; Status DC Heparin Sodium/ Sodium Chloride 1,000 unit 1X ONCE IART Last administered on 15:41; Start 12/12/16 at 15:30; Stop 12/12/16 at 15:32; Status DC Iodixanol (Visipaque 320) 100 ml 1X ONCE IART Last administered on 12/12/16 15:41; Start 12/12/16 at 15:30; Stop 12/12/16 at 15:32; Status DC Lidocaine HCl 4 ml 1X ONCE IJ Last administered on 12/12/16 15:41; Start at 15:30; Stop 12/12/16 at 15:32; Status DC Active Scripts Active Ultram (Tramadol Hcl) 50 Mg Tablet 50 Mg PO Q6H PRN Robaxin (Methocarbamol) 500 Mg Tablet 500 Mg PO QID Reported Percocet 5-325 Mg Tablet (Oxycodone/Acetaminophen) 1 Each Tablet 1-2 Tab PO Q4HRS Vitals/I & O Vital Sign - Last 24 Hours 12/11/16 12/11/16 12/11/16 12/11/16 19:00 19:10 19:41 20:00 Temp 98.5 98.5 Pulse 101 103 Resp 24 24 23 B/P 121/66 120/66 Pulse Ox 100 100 100 100 O2 Delivery Ventilator Ventilator Ventilator O2 Flow Rate 4.0 12/11/16 12/11/16 12/11/16 12/11/16 20:00 20:00 20:11 20:55 Pulse 103 B/P 120/66 Pulse Ox 100 100 O2 Delivery Mechanical Ventilator Ventilator O2 Flow Rate 4.0 12/11/16 12/11/16 12/11/16 12/11/16 21:00 22:00 23:00 23:00 Pulse 102 102 103 Resp 23 23 23 B/P 116/62 124/64 124/64 Pulse Ox 100 100 100 100 O2 Delivery Ventilator Ventilator Ventilator Ventilator 12/12/16 12/12/16 12/12/16 12/12/16 00:00 00:00 00:00 01:00 Temp 97.9 97.9 Pulse 104 104 102 Resp 23 23 B/P 125/62 120/66 131/66 Pulse Ox 100 100 O2 Delivery Ventilator Mechanical Ventilator Ventilator 12/12/16 12/12/16 12/12/16 12/12/16 01:05 02:00 03:00 03:30 Pulse 98 102 Resp 23 22 B/P 123/63 134/64 Pulse Ox 100 100 100 100 O2 Delivery Ventilator Ventilator Ventilator Ventilator 12/12/16 12/12/16 12/12/16 12/12/16 04:00 04:00 04:00 04:03 Temp 98.1 98.1 Pulse 94 94 Resp 21 22 B/P 104/57 104/57 Pulse Ox 100 100 O2 Delivery Mechanical Ventilator Ventilator O2 Flow Rate 4.0 12/12/16 12/12/16 12/12/16 12/12/16 05:00 05:20 06:00 07:00 Temp 98.1 98.1 Pulse 94 93 90 Resp 21 34 21 B/P 108/56 104/60 100/62 Pulse Ox 100 100 100 100 O2 Delivery Ventilator Ventilator Ventilator Ventilator 12/12/16 12/12/16 12/12/16 12/12/16 07:31 08:00 08:00 08:00 Temp 97.5 97.5 Pulse 90 90 Resp 20 B/P 116/62 116/62 Pulse Ox 100 100 O2 Delivery Ventilator Mechanical Ventilator Ventilator 12/12/16 12/12/16 12/12/16 12/12/16 09:00 09:15 10:00 11:00 Pulse 88 90 83 Resp 21 21 20 B/P 116/60 124/72 120/65 Pulse Ox 100 100 100 100 O2 Delivery Ventilator Ventilator Ventilator Ventilator 12/12/16 12/12/16 12/12/1617 11:35 12:00 12:00 12:00 Temp 97.9 97.9 Pulse 86 86 Resp 21 B/P 128/70 128/70 Pulse Ox 99 100 O2 Delivery Ventilator Mechanical Ventilator Ventilator 12/12/16 12/12/16 12/12/16 12/12/16 13:00 13:38 13:46 14:00 Pulse 82 83 Resp 20 20 24 B/P 110/60 115/61 Pulse Ox 100 100 100 O2 Delivery Ventilator Ventilator Ventilator 12/12/16 12/12/16 12/12/16 12/12/16 14:26 15:01 15:42 16:00 Pulse 82 Resp 24 22 Pulse Ox 100 O2 Delivery Ventilator Ventilator Ventilator Mechanical Ventilator 12/12/16 12/12/16 12/12/16 12/12/16 16:00 16:00 17:00 17:16 Temp 98.0 98.0 Pulse 84 83 83 Resp 21 20 B/P 118/66 117/65 118/66 Pulse Ox 100 100 O2 Delivery Ventilator Ventilator Ventilator 12/12/16 18:00 Pulse 81 Resp 22 B/P 107/60 Pulse Ox 100 O2 Delivery Ventilator Intake and Output 12/11/16 12/11/16 12/12/16 15:00 23:00 07:00 Intake Total 519.5333 ml 710.7233 ml 1650.1 ml Output Total 603 ml 390 ml 395 ml Balance -83.4667 ml 320.7233 ml 1255.1 ml MAGNO CHAPARRO III DO Dec 12, 2016 18:42
[2016-12-13] VITALS (25 sets, daily range): BP systolic 87–121; BP diastolic 58–91
[2016-12-13] MEDS: PIPERACILLIN/TAZOBACTAM 2.25 GM in IV NORMAL SALINE 50ML 50 ML IV SCH ×4 (00:23→18:18)
[2016-12-13] MEDS: MIDAZOLAM PREMIX 100 ML IV PRN ×4 (00:24→23:55)
[2016-12-13] MEDS ORDERED: POTASSIUM CHLORIDE 20MEQ 50 ML IV ONE ×2 (03:15→04:15)
[2016-12-13] MEDS: FENTANYL STANDARD PCA 30 ML IV PRN ×2 (06:21→16:36)
--- NOTE | 2016-12-13 07:24 | PDOC ---
Infectious Disease Note Subjective Subjective Sedated. BP stable. Off pressors Tube feedings ROS ROS GEN: Denies fevers, chills, sweats HEENT: Denies blurred vision, sore throat CV: Denies chest pain RESP: Denies shortness of air, cough GI: Denies n/v/d NEURO: Denies confusion, dizziness MSK: Denies weakness, joint pain/swelling Vital Sign Vital Signs Vital Signs Date Time Temp Pulse Resp B/P Pulse Ox O2 Delivery O2 Flow Rate FiO2 12/13/16 05:43 99 Ventilator 12/13/16 05:00 83 22 110/68 12/13/16 04:00 97.6 97.6 12/12/16 23:06 4.0 Physical Exam PHYSICAL EXAM GENERAL: Intubated and sedated HEENT: Pupils small and equal. ETT. OGT LUNGS: Clear. vent. HEART: S1S2, no gallop, no murmur. ABD: Soft, BS present : Garcia EXT: RUE with 1 + and LUE with 1 edema, LE with 1 plus no cyanosis, Mitts [employer]: Sedated SKIN: No rash RUE PICC. (12/09). clean Peripheral IV Labs Lab Laboratory Tests Test 12/12/16 08:10 12/12/16 17:21 12/12/16 17:55 12/13/16 00:15 O2 Saturation 90% (92-99) Arterial Blood pH 7.43 (7.35-7.45) Arterial Blood pCO2 at Patient Temp 35mmHg (35-46) Arterial Blood pO2 at Patient Temp 60mmHg (75-108) Arterial Blood HCO3 23mmol/L (21-28) Arterial Blood Base Excess -1mmol/L (-3-3) FiO2 35 Urine Collection Type Unknown Urine Color Yellow Urine Clarity Cloudy Urine pH 6.0 Urine Specific [place] 1.025 Urine Protein 100mg/dL (NEG-TRACE) Urine Glucose (UA) Negativemg/dL (NEG) Urine Ketones (Stick) Negativemg/dL (NEG) Urine Blood Moderate (NEG) Urine Nitrite Negative (NEG) Urine Bilirubin Negative (NEG) Urine Urobilinogen Dipstick 0.2mg/dL (0.2 mg/dL) Urine Leukocyte Esterase Small (NEG) Urine RBC 6-10/HPF (0-2) Urine WBC 5-10/HPF (0-4) Urine Amorphous Sediment Present/HPF Urine Bacteria Few/HPF (0-FEW) Urine Granular Casts Moderate/HPF Potassium Level 3.8mmol/L (3.5-5.1) 3.4mmol/L (3.5-5.1) Objective Assessment Sepsis with lactic acidosis. POA - off Pressors Fever - curve better Leukocytosis - stable Pneumonia - S/pBronch 12/12 - GPC on gram stain -Influenza screen neg -Strep antigen & legionella Ag neg Acute encephalopathy Acute respiratory failure s/p intubation s/p PEA cardiopulmonary arrest - S/p Cath 12/12 -TTE EF 30-35%. -No veg noted Hypotension on vasopressor support x 2. Now off ASHLEY - Renal following - worse Polysubstance abuse Diarrhea. c. diff neg. stool cx neg Plan Plan of Care Cont Zosyn/ doxy/Zyvox taper soon F/u bronch results F/u Cardiac cath results Await ? need for HD One time dose vanc 12/08 Rocephin and azithromycin 12/07 Monitor labs/temp Supportive care Critically ill LILIANA SEVERINO MD Dec 13, 2016 07:23
--- NOTE | 2016-12-13 08:09 | PDOC ---
PROGRESS NOTES Chief Complaint Chief Complaint Chief Complaint: - Weakness, dehydration - Cardiac arrest PEA (12/08); TTE EF of 30-35% - Acute respiratory failure, likely multifactorial; On mechanical Ventilation ( 12/08)- possible aspiration pneumonia. Possible ARDS vs pulmonary edema vs PNA - ASHLEY - Septic shock, multiorgan failure, Off pressor support - Cardiomyopathy - Metabolic acidosis - Polysubstance abuse - Elevated troponin - Hypocalcemia. History of Present Illness History of Present Illness 51 year old male seen in ICU. Sedated on vent, settings AC/Rate- 22/ Tidal Vol - 500/ 40% FiO2 with 5.0 PEEP/ O2 sat- 99%. Discussed case with nursing, got left heart cath as well as bronchoscopy yesterday and awaiting results. Vitals Vitals Vital Signs Date Time Temp Pulse Resp B/P Pulse Ox O2 Delivery O2 Flow Rate FiO2 12/13/16 06:51 22 100 4.0 12/13/16 06:00 96 97/67 12/13/16 05:43 Ventilator 12/13/16 04:00 97.6 97.6 Physical Exam Physical Exam Pupils reactive to light General: No acute distress, Other (Intubated/sedated on vent) Heart: Regular rate, Normal S1, Normal S2 Lungs: Other (Decrease bs) Abdomen: Normal bowel sounds, Soft, No tenderness Extremities: No clubbing, No cyanosis, No edema Skin: No rashes, No significant lesion Labs LABS Laboratory Tests Test 12/12/16 08:10 12/12/16 17:21 12/12/16 17:55 12/13/16 00:15 O2 Saturation 90% (92-99) Arterial Blood pH 7.43 (7.35-7.45) Arterial Blood pCO2 at Patient Temp 35mmHg (35-46) Arterial Blood pO2 at Patient Temp 60mmHg (75-108) Arterial Blood HCO3 23mmol/L (21-28) Arterial Blood Base Excess -1mmol/L (-3-3) FiO2 35 Urine Collection Type Unknown Urine Color Yellow Urine Clarity Cloudy Urine pH 6.0 Urine Specific [place] 1.025 Urine Protein 100mg/dL (NEG-TRACE) Urine Glucose (UA) Negativemg/dL (NEG) Urine Ketones (Stick) Negativemg/dL (NEG) Urine Blood Moderate (NEG) Urine Nitrite Negative (NEG) Urine Bilirubin Negative (NEG) Urine Urobilinogen Dipstick 0.2mg/dL (0.2 mg/dL) Urine Leukocyte Esterase Small (NEG) Urine RBC 6-10/HPF (0-2) Urine WBC 5-10/HPF (0-4) Urine Amorphous Sediment Present/HPF Urine Bacteria Few/HPF (0-FEW) Urine Granular Casts Moderate/HPF Potassium Level 3.8mmol/L (3.5-5.1) 3.4mmol/L (3.5-5.1) Review of Systems Review of Systems Sedated on vent, could not obtain Assessment and Plan Assessmemt and Plan - Weakness, dehydration - Cardiac arrest PEA (12/08); TTE EF of 30-35%, s/p left heart cath 12/12/16 - Acute respiratory failure, likely multifactorial; On mechanical Ventilation ( 12/08)- possible aspiration pneumonia. Possible ARDS vs pulmonary edema vs PNA - ASHLEY - Anemia - Septic shock, multiorgan failure, Off pressor support - Cardiomyopathy - Metabolic acidosis - Polysubstance abuse - Elevated troponin - Hypocalcemia. Plan - K of 3.4 today. Ordered KCl 40 mEq IV - Hgb of 8.8 today, will continue to monitor anemia - Awaiting bronchoscopy results - Antibiotic management per I.D. - Continue monitoring in ICU - Pulmonology following, will wean off vent as tolerated - Nephrology following and evaluating need for dialysis - Recheck labs - LTAC eval ordered - Prognosis guarded - Appreciate subspecialty input Problems: Comment Review of Relevant I have reviewed the following items immanuel (where applicable) has been applied. Labs Laboratory Tests Test 12/11/16 08:15 12/12/16 05:30 12/12/16 06:30 12/12/16 08:10 O2 Saturation 91% (92-99) 90% (92-99) Arterial Blood pH 7.47 (7.35-7.45) 7.43 (7.35-7.45) Arterial Blood pCO2 at Patient Temp 33mmHg (35-46) 35mmHg (35-46) Arterial Blood pO2 at Patient Temp 61mmHg (75-108) 60mmHg (75-108) Arterial Blood HCO3 23mmol/L (21-28) 23mmol/L (21-28) Arterial Blood Base Excess 0mmol/L (-3-3) -1mmol/L (-3-3) FiO2 35 35 White Blood Count 20.6x10^3/uL (4.0-11.0) Red Blood Count 2.91x10^6/uL (4.30-5.70) Hemoglobin 8.8g/dL (13.0-17.5) Hematocrit 26.5% (39.0-53.0) Mean Corpuscular Volume 91fL (79-100) Mean Corpuscular Hemoglobin 30pg (25-35) Mean Corpuscular Hemoglobin Concent 33g/dL (31-37) Red Cell Distribution Width 14.4% (11.5-14.5) Platelet Count 310x10^3/uL (140-400) Neutrophils (%) (Auto) 90% (31-73) Lymphocytes (%) (Auto) 3% (24-48) Monocytes (%) (Auto) 7% (0-9) Eosinophils (%) (Auto) 0% (0-3) Basophils (%) (Auto) 0% (0-3) Neutrophils # (Auto) 18.4x10^3uL (1.8-7.7) Lymphocytes # (Auto) 0.6x10^3/uL (1.0-4.8) Monocytes # (Auto) 1.4x10^3/uL (0.0-1.1) Eosinophils # (Auto) 0.0x10^3/uL (0.0-0.7) Basophils # (Auto) 0.1x10^3/uL (0.0-0.2) Sodium Level 141mmol/L (136-145) Potassium Level 3.4mmol/L (3.5-5.1) Chloride Level 106mmol/L (98-107) Carbon Dioxide Level 25mmol/L (21-32) Anion Gap 10 (6-14) Blood Urea Nitrogen 49mg/dL (8-26) Creatinine 3.8mg/dL (0.7-1.3) Estimated GFR (Cockcroft-Gault) 20.6 Glucose Level 117mg/dL (70-99) Calcium Level 7.1mg/dL (8.5-10.1) Phosphorus Level 2.6mg/dL (2.6-4.7) Magnesium Level 2.2mg/dL (1.8-2.4) Creatine Kinase 1785U/L (39-308) Albumin 1.1g/dL (3.4-5.0) Test 12/12/16 17:21 12/12/16 17:55 12/13/16 00:15 Urine Collection Type Unknown Urine Color Yellow Urine Clarity Cloudy Urine pH 6.0 Urine Specific [place] 1.025 Urine Protein 100mg/dL (NEG-TRACE) Urine Glucose (UA) Negativemg/dL (NEG) Urine Ketones (Stick) Negativemg/dL (NEG) Urine Blood Moderate (NEG) Urine Nitrite Negative (NEG) Urine Bilirubin Negative (NEG) Urine Urobilinogen Dipstick 0.2mg/dL (0.2 mg/dL) Urine Leukocyte Esterase Small (NEG) Urine RBC 6-10/HPF (0-2) Urine WBC 5-10/HPF (0-4) Urine Amorphous Sediment Present/HPF Urine Bacteria Few/HPF (0-FEW) Urine Granular Casts Moderate/HPF Potassium Level 3.8mmol/L (3.5-5.1) 3.4mmol/L (3.5-5.1) Laboratory Tests Test 12/12/16 08:10 12/12/16 17:21 12/12/16 17:55 12/13/16 00:15 O2 Saturation 90% (92-99) Arterial Blood pH 7.43 (7.35-7.45) Arterial Blood pCO2 at Patient Temp 35mmHg (35-46) Arterial Blood pO2 at Patient Temp 60mmHg (75-108) Arterial Blood HCO3 23mmol/L (21-28) Arterial Blood Base Excess -1mmol/L (-3-3) FiO2 35 Urine Collection Type Unknown Urine Color Yellow Urine Clarity Cloudy Urine pH 6.0 Urine Specific [place] 1.025 Urine Protein 100mg/dL (NEG-TRACE) Urine Glucose (UA) Negativemg/dL (NEG) Urine Ketones (Stick) Negativemg/dL (NEG) Urine Blood Moderate (NEG) Urine Nitrite Negative (NEG) Urine Bilirubin Negative (NEG) Urine Urobilinogen Dipstick 0.2mg/dL (0.2 mg/dL) Urine Leukocyte Esterase Small (NEG) Urine RBC 6-10/HPF (0-2) Urine WBC 5-10/HPF (0-4) Urine Amorphous Sediment Present/HPF Urine Bacteria Few/HPF (0-FEW) Urine Granular Casts Moderate/HPF Potassium Level 3.8mmol/L (3.5-5.1) 3.4mmol/L (3.5-5.1) Microbiology 12/07/16 Blood Culture - Final, Complete NO GROWTH AFTER 5 DAYS 12/07/16 Stool Culture - Final, Complete 12/07/16 Stool Culture Result 1 (NEFTALI) - Final, Complete 12/07/16 Campylobacter Antigen Assay - Final, Complete 12/07/16 Campylobactor Result 1 - Final, Complete 12/07/16 Shiga Toxin Test - Final, Complete 12/12/16 Gram Stain - Final, Complete Medications Current Medications Ketorolac Tromethamine 30 mg 30 mg 1X ONCE IV Last administered on 12/07/16 14:34; Start 12/07/16 at 14:30; Stop 12/07/16 at 14:31; Status DC Sodium Chloride 1,000 ml @ 1,000 mls/hr 1X ONCE IV Last administered on 14:34; Start 12/07/16 at 14:30; Stop 12/07/16 at 15:29; Status DC Ceftriaxone Sodium 1 gm/ Sodium Chloride 50 ml @ 100 mls/hr Q24H IV ; Start at 15:30; Stop 12/08/16 at 15:30; Status DC Azithromycin 250 ml @ 250 mls/hr 1X ONCE IV Last administered on 12/07/16 15 :48; Start 12/07/16 at 15:15; Stop 12/07/16 at 16:14; Status DC Sodium Chloride 1,000 ml @ 1,000 mls/hr 1X ONCE IV Last administered on 16:09; Start 12/07/16 at 15:15; Stop 12/07/16 at 16:14; Status DC Ceftriaxone Sodium 50 ml @ 100 mls/hr 1X ONCE IV Last administered on 15:29; Start 12/07/16 at 15:15; Stop 12/07/16 at 15:44; Status DC Sodium Chloride (Iv Sodium Chloride 0.9% 1000ml Bag) 1,000 ml @ 150 mls/hr 1X ONCE IV Last administered on 12/07/16 18:10; Start 12/07/16 at 15:15; Stop 11/11 at 21:54; Status DC Famotidine (Pepcid) 20 mg 1X ONCE IVP Last administered on 12/07/16 15:48; Start 12/07/16 at 15:45; Stop 12/07/16 at 15:46; Status DC Ondansetron HCl 4 mg 4 mg 1X ONCE IV Last administered on 12/07/16 16:09; Start 12/07/16 at 16:15; Stop 12/07/16 at 16:16; Status DC Sodium Chloride (Iv Sodium Chloride 0.9% 1000ml Bag) 1,000 ml @ 150 mls/hr Q6H40M IV Last administered on 12/08/16 06:38; Start 12/07/16 at 16:30; Stop 12/08/16 at 14:21; Status DC Ondansetron HCl (Zofran) 4 mg PRN Q6HRS PRN IV NAUSEA/VOMITING; Start 12/07/16 at 16:30 Acetaminophen (Tylenol) 500 mg PRN Q6HRS PRN PO MILD PAIN / TEMP Last administered on 12/09/16 15:04; Start 12/07/16 at 16:30 Morphine Sulfate 2 mg PRN Q2HR PRN IV PAIN Last administered on 12/08/16 05:28 ; Start 12/07/16 at 16:30 Zolpidem Tartrate (Ambien) 5 mg PRN QHS PRN PO INSOMNIA Last administered on 01:06; Start 12/07/16 at 16:30; Stop 12/08/16 at 10:03; Status DC Methocarbamol (Robaxin) 500 mg QID PO Last administered on 12/07/16 21:19; Start 12/07/16 at 17:00; Stop 12/08/16 at 10:03; Status DC Oxycodone/ Acetaminophen (Percocet 5/325) 1 tab PRN Q4HRS PRN PO SEVERE PAIN; Start 12/07/16 at 16:30 Tramadol HCl (Ultram) 50 mg PRN Q6HRS PRN PO MODERATE PAIN Last administered on 12/07/16 17:11; Start 12/07/16 at 16:30 Nicotine (Nicoderm Cq 21mg) 1 patch PRN DAILY PRN TD SMOKING CESSATION; Start 12/07/16 at 16:30 Info (Do NOT chart on this placeholder) 1 each 1X ONCE MC ; Start 12/07/16 at 22:45; Stop 12/07/16 at 22:46; Status UNV Pneumococcal Polyvalent Vaccine (Do NOT chart on this placeholder) 1 each 1X ONCE MC ; Start 12/07/16 at 22:45; Stop 12/07/16 at 22:46; Status UNV Influenza Virus Vaccine Quadrival (Fluarix Quad 1648-9212 Syringe) 0.5 ml ONCE ONCE VAX IM ; Start 12/08/16 at 09:00; Stop 12/08/16 at 09:01; Status DC Pneumococcal Polyvalent Vaccine (Pneumovax 23) 0.5 ml ONCE ONCE VAX IM ; Start 12/08/16 at 09:00; Stop 12/08/16 at 09:01; Status DC Labetalol HCl (Normodyne) 10 mg 1X ONCE IVP Last administered on 12/08/16 08: 56; Start 12/08/16 at 08:30; Stop 12/08/16 at 08:35; Status DC Alprazolam (Xanax) 0.5 mg 1X ONCE PO Last administered on 12/08/16 08:40; Start 12/08/16 at 08:45; Stop 12/08/16 at 08:46; Status DC Aspirin (Children'S Aspirin) 324 mg 1X ONCE PO Last administered on 12/08/16 13:44; Start 12/08/16 at 09:30; Stop 12/08/16 at 09:31; Status DC Aspirin (Jada Aspirin) 325 mg DAILYWBKFT PO ; Start 12/09/16 at 08:00; Stop at 08:00; Status DC Heparin Sodium (Porcine) 4000 unit 4,000 unit 1X ONCE IV ; Start 12/08/16 at 09 :30; Stop 12/08/16 at 14:21; Status DC Midazolam HCl 100 ml @ As Directed STK-MED ONCE IV ; Start 12/08/16 at 09:52; Stop 12/08/16 at 09:53; Status DC Propofol (Diprivan) 100 ml @ 0 mls/hr CONT PRN IV SEE I/O RECORD Last administered on 12/08/16t 23:49; Start 12/08/16 at 10:00 Famotidine (Pepcid) 20 mg QHS IVP Last administered on 12/12/16 21:56; Start 12/08/16 at 21:00 Heparin Sodium (Porcine) 5000 unit 5,000 unit Q8HRS SQ ; Start 12/08/16 at 14:00 ; Stop 12/08/16 at 14:00; Status DC Norepinephrine Bitartrate 8 mg/ Sodium Chloride 258 ml @ 1.93 mls/hr CONT PRN IV SEE I/O RECORD; Start 12/08/16 at 10:15; Status Cancel Dopamine HCl/ Dextrose 250 ml @ As Directed STK-MED ONCE IV ; Start 12/08/16 at 10:07; Stop 12/08/16 at 10:08; Status DC Norepinephrine Bitartrate 8 mg/ Sodium Chloride 258 ml @ 0 mls/hr CONT PRN IV SEE I/O RECORD Last administered on 12/09/16 08:46; Start 12/08/16 at 10:15; Stop 12/09/16 at 11:47; Status DC Dopamine HCl/ Dextrose 250 ml @ 10.084 mls/ hr CONT PRN IV SEE I/O RECORD Last administered on 12/08/16 10:00; Start 12/08/16 at 10:15 Sodium Bicarbonate/ Sodium Chloride (Iv Sodium Chloride 0.45%) 1,050 ml @ 200 mls/hr Q5H15M IV Last administered on 12/09/16 05:11; Start 12/08/16 at 10:30 ; Stop 12/09/16 at 08:28; Status DC Phenylephrine HCl 1 mg STK-MED ONCE IV ; Start 12/08/16 at 10:25; Stop 12/08/16 at 10:26; Status DC Aspirin 300 mg 300 mg 1X ONCE PA ; Start 12/08/16 at 10:45; Stop 12/08/16 at 10 :46; Status DC Sodium Chloride 1,000 ml @ 1,000 mls/hr 1X ONCE IV Last administered on 10:00; Start 12/08/16 at 11:45; Stop 12/08/16 at 12:44; Status DC Sodium Chloride (Iv Sodium Chloride 0.9% 1000ml Bag) 1,000 ml @ 1,000 mls/hr 1X ONCE IV Last administered on 12/08/16 10:00; Start 12/08/16 at 11:45; Stop 12/08/16 at 12:44; Status DC Albuterol/ Ipratropium (Duoneb) 3 ml RTQID NEB Last administered on 12/08/16 19:44; Start 12/08/16 at 12:30; Stop 12/09/16 at 05:17; Status DC Budesonide 0.5 mg 0.5 mg RTBID NEB Last administered on 12/12/16 19:23; Start 12/08/16 at 12:30 Sodium Chloride 1,000 ml @ 1,000 mls/hr 1X ONCE IV Last administered on 11:00; Start 12/08/16 at 12:15; Stop 12/08/16 at 13:14; Status DC Sodium Chloride 1,000 ml @ 1,000 mls/hr 1X ONCE IV Last administered on 11:00; Start 12/08/16 at 12:15; Stop 12/08/16 at 13:14; Status DC Heparin Sodium/ Dextrose 500 ml @ 0 mls/hr CONT PRN IV SEE I/O RECORD Last administered on 12/09/16 13:11; Start 12/08/16 at 12:45 Heparin Sodium (Porcine) 1,350 unit PRN Q6HRS PRN IV FOR UFH LEVEL LESS THAN 0.2 Last administered on 12/09/16 05:47; Start 12/08/16 at 12:45 Etomidate (Amidate) 20 mg STK-MED ONCE IV ; Start 12/08/16 at 13:00; Stop at 13:01; Status DC Succinylcholine Chloride 200 mg 200 mg STK-MED ONCE .ROUTE ; Start 12/08/16 at 13:00; Stop 12/08/16 at 13:01; Status DC Piperacillin Sod/ Tazobactam Sod 3.375 gm/Sodium Chloride 50 ml @ 100 mls/hr Q6HRS IV ; Start 12/08/16 at 18:00; Stop 12/08/16 at 18:00; Status DC Vancomycin HCl 1 gm/Sodium Chloride 250 ml @ 250 mls/hr 1X ONCE IV Last administered on 12/08/16 14:21; Start 12/08/16 at 14:00; Stop 12/08/16 at 14:59 ; Status DC Piperacillin Sod/ Tazobactam Sod 2.25 gm/Sodium Chloride 50 ml @ 100 mls/hr Q6HRS IV Last administered on 12/09/16 06:17; Start 12/08/16 at 14:00; Stop at 08:25; Status DC Midazolam HCl 100 ml @ 0 mls/hr CONT PRN IV SEE I/O RECORD Last administered on 12/13/16 00:24; Start 12/08/16 at 10:30 Fentanyl Citrate (Fentanyl 600 Mcg/30 ml CERT PHARMACY TECH) 30 ml @ 0 mls/hr CONT PRN IV PROTOCOL Last administered on 12/13/16 06:21; Start 12/09/16 at 05:15 Fentanyl Citrate (Fentanyl 2ml Vial) 25 mcg PRN Q1HR PRN IV COMM; Start at 05:15 Fentanyl Citrate (Fentanyl 2ml Vial) 50 mcg PRN Q1HR PRN IV COMM; Start at 05:15 Ipratropium [place] (Atrovent) 0.5 mg RTQID NEB Last administered on 12/12/16 19:24; Start 12/09/16 at 08:00 Aspirin (Children'S Aspirin) 81 mg DAILYWBKFT PO Last administered on 09:48; Start 12/09/16 at 08:00 Chlorhexidine Gluconate 15 ml 15 ml BID MM Last administered on 12/12/16 21:56 ; Start 12/09/16 at 09:00 Sodium Bicarbonate 150 meq/Dextrose 1,150 ml @ 100 mls/hr [id number] IV Last administered on 12/10/16 09:34; Start 12/09/16 at 09:00; Stop 12/10/16 at 12:14 ; Status DC Piperacillin Sod/ Tazobactam Sod 3.375 gm/Sodium Chloride 50 ml @ 100 mls/hr Q6HRS IV Last administered on 12/11/16 06:01; Start 12/09/16 at 12:00; Stop at 07:47; Status DC Norepinephrine Bitartrate 16 mg/ Sodium Chloride 266 ml @ 0.99 mls/hr CONT PRN IV SEE I/O RECORD Last administered on 12/09/16 20:36; Start 12/09/16 at 12 :00 Doxycycline Hyclate/Dextrose 100 ml @ 50 mls/hr Q12HR IV Last administered on 12/12/16 22:51; Start 12/09/16 at 13:00 Atropine Sulfate 0.5 mg STK-MED ONCE .ROUTE ; Start 12/08/16 at 10:30; Stop at 13:18; Status DC Epinephrine HCl 3 mg STK-MED ONCE .ROUTE ; Start 12/08/16 at 10:30; Stop at 13:18; Status DC Calcium Gluconate 1000 mg 1,000 mg 1X ONCE IVP ; Start 12/10/16 at 10:00; Stop 12/10/16 at 10:01; Status UNV Magnesium Sulfate/ Dextrose 50 ml @ 25 mls/hr 1X ONCE IV Last administered on 12/10/16 11:40; Start 12/10/16 at 12:00; Stop 12/10/16 at 13:59; Status DC Calcium Gluconate 1000 mg/Sodium Chloride 110 ml @ 220 mls/hr 1X ONCE IV Last administered on 12/10/16 11:36; Start 12/10/16 at 12:00; Stop 12/10/16 at 12:29; Status DC Magnesium Sulfate/ Dextrose 50 ml @ 25 mls/hr PRN DAILY PRN IV for Mag < 1.7 on am labs; Start 12/10/16 at 12:15 Amino Acids/ Glycerin/ Electrolytes 1,000 ml @ 80 mls/hr [id number] IV ; Start at 12:30; Stop 12/10/16 at 12:30; Status DC Albumin Human (Albuminar) 100 ml @ 100 mls/hr TID IV ; Start 12/10/16 at 14:00 ; Stop 12/10/16 at 14:00; Status DC Calcium Gluconate 2000 mg 2,000 mg TID IVP ; Start 12/10/16 at 14:00; Stop 12/10 at 14:00; Status DC Piperacillin Sod/ Tazobactam Sod 2.25 gm/Sodium Chloride 50 ml @ 100 mls/hr Q6HRS IV Last administered on 12/13/16 06:22; Start 12/11/16 at 12:00 Linezolid (Zyvox Premix) 300 ml @ 300 mls/hr Q12HR IV Last administered on 21:56; Start 12/11/16 at 09:00 Info 1 each 1 each PRN DAILY PRN MC SEE COMMENTS Last administered on 08:21; Start 12/11/16 at 08:15 Potassium Phosphate/Sodium Chloride (Potassium Phosphate/Iv Sodium Chloride 0.9 % 100ml) 104.5333 ml @ 52.267 m... Q2H IV Last administered on 12/11/16 17:22 ; Start 12/11/16 at 09:00; Stop 12/11/16 at 14:59; Status DC Furosemide 20 mg 20 mg 1X ONCE IVP Last administered on 12/11/16 11:10; Start 12/11/16 at 10:00; Stop 12/11/16 at 10:03; Status DC Dobutamine HCl/ Dextrose 250 ml @ 0 mls/hr CONT PRN IV SEE I/O RECORD Last administered on 12/11/16 15:05; Start 12/11/16 at 14:45 Magnesium Sulfate/ Dextrose 50 ml @ 25 mls/hr PRN DAILY PRN IV for Mag < 1.7 on am labs; Start 12/12/16 at 08:45 Potassium Chloride 50 ml @ 50 mls/hr PRN Q6HRS PRN IV For K < 3.7; Start at 08:45 Potassium Chloride (KCl Premix 20meq) 50 ml @ 50 mls/hr PRN Q2HR PRN IV total of 40mEq for K < 3.5; Start 12/12/16 at 08:45 Acetylcysteine 1200 mg 1,200 mg BID PO Last administered on 12/12/16 21:56; Start 12/12/16 at 09:00; Stop 12/14/16 at 08:59 Potassium Chloride (KCl Premix 20meq) 50 ml @ 50 mls/hr Q1H IV Last administered on 12/12/16 13:16; Start 12/12/16 at 09:00; Stop 12/12/16 at 10:59 ; Status DC Lidocaine/Sodium Bicarbonate 20 ml 20 ml STK-MED ONCE IJ ; Start 12/12/16 at 12: 13; Stop 12/12/16 at 12:14; Status DC Heparin Sodium/ Sodium Chloride 500 ml @ As Directed STK-MED ONCE .ROUTE ; Start 12/12/16 at 12:14; Stop 12/12/16 at 12:15; Status DC Lidocaine/Sodium Bicarbonate (Buffered Lidocaine 1%) 3 ml 1X ONCE IJ Last administered on 12/12/16 13:08; Start 12/12/16 at 12:15; Stop 12/12/16 at 12:17 ; Status DC Heparin Sodium (Porcine) 2,500 unit 1X ONCE INT CAT Last administered on 13:08; Start 12/12/16 at 12:15; Stop 12/12/16 at 12:17; Status DC Heparin Sodium/ Sodium Chloride 60 unit 60 unit 1X ONCE IV Last administered on 12/12/16 12:15; Start 12/12/16 at 12:15; Stop 12/12/16 at 12:17; Status DC Heparin Sodium/ Sodium Chloride 1,500 ml @ As Directed STK-MED ONCE .ROUTE ; Start 12/12/16 at 15:03; Stop 12/12/16 at 15:04; Status DC Lidocaine HCl 20 ml STK-MED ONCE .ROUTE ; Start 12/12/16 at 15:03; Stop at 15:04; Status DC Iodixanol (Visipaque 320) 100 ml STK-MED ONCE .ROUTE ; Start 12/12/16 at 15:04; Stop 12/12/16 at 15:05; Status DC Heparin Sodium/ Sodium Chloride 1,000 unit 1X ONCE IART Last administered on 15:41; Start 12/12/16 at 15:30; Stop 12/12/16 at 15:32; Status DC Iodixanol (Visipaque 320) 100 ml 1X ONCE IART Last administered on 12/12/16 15:41; Start 12/12/16 at 15:30; Stop 12/12/16 at 15:32; Status DC Lidocaine HCl 4 ml 4 ml 1X ONCE IJ Last administered on 12/12/16 15:41; Start 12/12/16 at 15:30; Stop 12/12/16 at 15:32; Status DC Potassium Chloride 50 ml @ 50 mls/hr 1X ONCE IV Last administered on 04:13; Start 12/13/16 at 04:15; Stop 12/13/16 at 05:14; Status DC Potassium Chloride (KCl Premix 20meq) 50 ml @ 50 mls/hr 1X ONCE IV Last administered on 12/13/16t 03:13; Start 12/13/16 at 03:15; Stop 12/13/16 at 04:14 ; Status DC Active Scripts Active Ultram (Tramadol Hcl) 50 Mg Tablet 50 Mg PO Q6H PRN Robaxin (Methocarbamol) 500 Mg Tablet 500 Mg PO QID Reported Percocet 5-325 Mg Tablet (Oxycodone/Acetaminophen) 1 Each Tablet 1-2 Tab PO Q4HRS Vitals/I & O Vital Sign - Last 24 Hours 12/12/16 12/12/16 12/12/16 12/12/16 09:00 09:15 10:00 11:00 Pulse 88 90 83 Resp 21 21 20 B/P 116/60 124/72 120/65 Pulse Ox 100 100 100 100 O2 Delivery Ventilator Ventilator Ventilator Ventilator 12/12/16 12/12/16 12/12/16 12/12/16 11:35 12:00 12:00 12:00 Temp 97.9 97.9 Pulse 86 86 Resp 21 B/P 128/70 128/70 Pulse Ox 99 100 O2 Delivery Ventilator Mechanical Ventilator Ventilator 12/12/16 12/12/16 12/12/16 12/12/16 13:00 13:38 13:46 14:00 Pulse 82 83 Resp 20 20 24 B/P 110/60 115/61 Pulse Ox 100 100 100 O2 Delivery Ventilator Ventilator Ventilator 12/12/16 12/12/16 12/12/16 12/12/16 14:26 15:01 15:42 16:00 Pulse 82 Resp 22 Pulse Ox 100 O2 Delivery Ventilator Ventilator Ventilator Mechanical Ventilator 12/12/16 12/12/16 12/12/16 12/12/16 16:00 16:00 17:00 17:16 Temp 98.0 98.0 Pulse 84 83 83 Resp 21 20 B/P 118/66 117/65 118/66 Pulse Ox 100 100 O2 Delivery Ventilator Ventilator Ventilator 12/12/16 12/12/16 12/12/16 12/12/16 18:00 19:00 19:24 20:00 Pulse 81 82 80 Resp 22 B/P 107/60 108/62 106/62 Pulse Ox 100 100 100 O2 Delivery Ventilator Ventilator Ventilator 12/12/16 12/12/16 12/12/16 12/12/16 20:00 20:01 20:30 21:00 Temp 97.9 97.9 Pulse 80 82 Resp 25 25 B/P 106/62 98/71 118/71 Pulse Ox 100 100 O2 Delivery Ventilator Mechanical Ventilator Ventilator 12/12/16 12/12/16 12/12/16 12/12/16 21:05 22:00 22:36 23:00 Pulse 85 85 Resp 25 25 B/P 122/71 110/60 Pulse Ox 100 100 100 100 O2 Delivery Ventilator Ventilator Ventilator O2 Flow Rate 4.0 12/12/16 12/13/16 12/13/16 12/13/16 23:25 00:00 00:00 00:00 Temp 97.7 97.7 Pulse 85 85 Resp 22 B/P 99/75 99/75 Pulse Ox 100 100 O2 Delivery Ventilator Mechanical Ventilator Ventilator 12/13/16 12/13/16 12/13/16 12/13/16 00:01 01:00 01:50 02:00 Pulse 84 83 Resp 22 22 B/P 92/65 98/68 107/60 Pulse Ox 100 100 100 O2 Delivery Ventilator Ventilator Ventilator 12/13/16 12/13/16 12/13/16 12/13/16 03:00 03:47 04:00 04:00 Temp 97.6 97.6 Pulse 84 83 Resp 22 22 B/P 108/58 102/65 Pulse Ox 100 99 100 O2 Delivery Ventilator Ventilator Ventilator Mechanical Ventilator 12/13/16 12/13/16 12/13/16 12/13/16 04:00 05:00 05:43 06:00 Pulse 83 83 96 Resp 22 22 B/P 102/65 110/68 97/67 Pulse Ox 100 99 100 O2 Delivery Ventilator 12/13/16 06:51 Resp 22 Pulse Ox 100 O2 Flow Rate 4.0 Intake and Output 12/12/16 12/12/16 12/13/16 15:00 23:00 07:00 Intake Total 0 ml 300 ml 1933 ml Output Total 265 ml 400 ml 225 ml Balance -265 ml -100 ml 1708 ml LISANDRA CHAPARROL K III DO Dec 13, 2016 08:09
[2016-12-13 08:10] LABS: ALBUMIN 1.1 g/dL (3.4-5.0); CALCIUM 7.4 mg/dL (8.5-10.1); CREATININE 3.6 mg/dL (0.7-1.3); GFR 21.9; PHOSPHORUS 2.3 mg/dL (2.6-4.7); POTASSIUM 4.3 mmol/L (3.5-5.1)
--- NOTE | 2016-12-13 08:59 | RAD ---
Procedure: Temporary hemodialysis catheter placement at the bedside. Clinical Indication: 51-year-old requiring hemodialysis Sedation: Local anesthesia. Antibiotics: None Fluoro Time: Not applicable Contrast: None Sterility: All elements of maximal sterile barrier technique including the use of a cap, mask, sterile gown, sterile gloves, large sterile sheet, appropriate hand hygiene, and 2% chlorhexidine for cutaneous antisepsis (or acceptable alternative antiseptic per current guidelines) were followed for this procedure. Consent: The procedure was explained in its entirety to the patient or the patients designated sales representative malt liquors by a member of the treatment team, including a discussion of the risks, benefits and commonly accepted alternatives to the procedure, as well as the expected consequences of no therapy whatsoever. Discussion of the risks included, but was not limited to, those that are most frequent and those that are rare but possibly severe or life-threatening, as well as the possibility of unforeseen complications. Technique and Findings: Following informed consent, the patient was prepped and draped in the usual sterile fashion. Ultrasound interrogation of the right neck revealed patency and compressibility of the right internal jugular vein. A 21-gauge micropuncture needle was used to gain access to this vein after 1% Lidocaine was used to achieve local anesthesia. A hardcopy ultrasound image was recorded. The needle was exchanged over a wire for serial dilators followed by a 20 cm Schon temporary hemodialysis catheter which was deployed in the expected location of the mid right atrium. The catheter flow rates were assessed manually and found to be excellent. The catheter was then flushed, packed with Heparin, capped, and sutured to the skin. Chest x-ray was then obtained to assess line position. Complications: No immediate Impression: 1. Ultrasound guided placement of a temporary hemodialysis catheter which exhibits excellent manual flow rates as described.
[2016-12-13] MEDS ORDERED: POTASSIUM CHLORIDE 20MEQ 50 ML IV SCH (09:00)
[2016-12-13] MEDS: BUDESONIDE 0.5 MG/2 ML NEBU NEB SCH ×2 (09:03→19:22)
[2016-12-13] MEDS: IPRATROPIUM BROMIDE 0.5 MG/2.5 ML NEBU. NEB SCH ×4 (09:04→19:21)
[2016-12-13] MEDS: ASPIRIN 81 MG TAB.CHEW PO SCH (09:05)
[2016-12-13] MEDS: DOXYCYCLINE HYCLATE 100 MG in IV DEXTROSE 5% 100 ML IV SCH ×2 (09:06→20:50)
[2016-12-13 09:07] LABS: HCO3 ABG 24 mmol/L (21-28); PCO2 ABG 36 mmHg (35-46); PH ABG 7.43 (7.35-7.45); PO2 ABG 63 mmHg (75-108); SAT O2 ABG 92 % (92-99)
[2016-12-13] MEDS: ACETYLCYSTEINE 20% ORAL SOLN 600 MG/3 ML SYRINGE. PO SCH ×2 (09:10→20:50)
[2016-12-13] MEDS: CHLORHEXIDINE 0.12% 15 ML MOUTHWASH. MM SCH ×2 (09:11→20:53)
[2016-12-13 09:29] LABS: FIO2 ABG 40
--- NOTE | 2016-12-13 09:49 | PDOC ---
SUBJECTIVE ROS ASHLEY Remains intubated and sedated OBJECTIVE Vital Signs Vital Signs Date Time Temp Pulse Resp B/P Pulse Ox O2 Delivery O2 Flow Rate FiO2 12/13/16 09:31 99 Ventilator 12/13/16 06:51 22 4.0 12/13/16 06:00 96 97/67 12/13/16 04:00 97.6 97.6 I & 0 Intake and Output 12/13/16 07:00 Intake Total 2233 ml Output Total 890 ml Balance 1343 ml Intake Oral 0 ml IV Total 694 ml Tube Feeding 793 ml Other 746 ml Output Urine Total 890 ml # Bowel Movements 1 PHYSICAL EXAM Physical Exam GEN: Intubated on the Vent, In no distress EYES: Pupils appears somewhat miotic, Conjunctiva Normal EN: No EN Drainage, Mucous Membranes moist NECK: no JVD, no JVP, Supple, no Thyromegaly CVS: S1S2, no Murmur, No Gallop, No Rub,no Edema RESP: rare Rales, no Rhonchi,no Acc. Muscle Use GI: BS + ve, NO Bruit, Non Tender, Non Distended : no CVA tenderness, no Suprapubic Tenderness DIAGNOSIS/ASSESSMENT Assessment & Plan ARF/ ATN post code - suspect some Rhabdo too ( ^ed U. Myoglobin) Current fluid and E-lyte status does not necessitate emergent need for dialysis. Will re- evaluate for dialysis in the am Edema - Gentle IV Lasix for -ve fluid balance ? Rhabdo - await U. Bob. ^CK due to AMI cannot be ruled out Resp Failure - defer to Pulm. Gentle IV Lasix Low K and PHos - replace as ordered Sev. Malnutrition - TF for now Prognosis is guarded COMMENT/RELEVANT DATA Meds Current Medications Medications (Trade) Dose Ordered Sig/Flakito Start Time Stop Time Status Last Admin Dose Admin Acetaminophen (Tylenol) 500 mg PRN Q6HRS PRN 12/07/16 16:30 12/09/16 15:04 500 MG Acetylcysteine (Mucomyst 20% Oral Solution) 1,200 mg BID 12/12/16 09:00 12/14/16 08:59 12/13/16 09:10 1,200 MG Albumin Human (Albuminar) 100 ml @ 100 mls/hr TID 12/10/16 14:00 12/10/16 14:00 DC Albuterol/ Ipratropium (Duoneb) 3 ml RTQID 12/08/16 12:30 12/09/16 05:17 DC 12/08/16 19:44 3 ML Alprazolam (Xanax) 0.5 mg 1X ONCE 12/08/16 08:45 12/08/16 08:46 DC 12/08/16 08:40 0.5 MG Amino Acids/ Glycerin/ Electrolytes 1,000 ml @ 80 mls/hr [id number] 12/10/16 12:30 12/10/16 12:30 DC Aspirin (Jada Aspirin) 325 mg [id number] 12/09/16 08:00 12/09/16 08:00 DC Aspirin (Children'S Aspirin) 81 mg [id number] 12/09/16 08:00 12/13/16 09:05 81 MG Aspirin 300 mg 300 mg 1X ONCE 12/08/16 10:45 12/08/16 10:46 DC Atropine Sulfate 0.5 mg STK-MED ONCE 12/08/16 10:30 12/09/16 13:18 DC Azithromycin 250 ml @ 250 mls/hr 1X ONCE 12/07/16 15:15 12/07/16 16:14 DC 12/07/16 15:48 250 MLS/HR Budesonide 0.5 mg 0.5 mg RTBID 12/08/16 12:30 12/13/16 09:03 0.5 MG Calcium Gluconate 1000 mg 1,000 mg 1X ONCE 12/10/16 10:00 12/10/16 10:01 UNV Calcium Gluconate 1000 mg/Sodium Chloride 110 ml @ 220 mls/hr 1X ONCE 12/10/16 12:00 12/10/16 12:29 DC 12/10/16 11:36 220 MLS/HR Calcium Gluconate 2000 mg 2,000 mg TID 12/10/16 14:00 12/10/16 14:00 DC Ceftriaxone Sodium 1 gm/ Sodium Chloride 50 ml @ 100 mls/hr Q24H 12/08/16 15:30 12/08/16 15:30 DC Ceftriaxone Sodium (Rocephin 1gm Ivpb For Omni) 50 ml @ 100 mls/hr 1X ONCE 12/07/16 15:15 12/07/16 15:44 DC 12/07/16 15:29 100 MLS/HR Chlorhexidine Gluconate 15 ml 15 ml BID 12/09/16 09:00 12/13/16 09:11 15 ML Dobutamine HCl/ Dextrose 250 ml @ 0 mls/hr CONT PRN 12/11/16 14:45 12/11/16 15:05 4.601 MLS/HR Dopamine HCl/ Dextrose 250 ml @ 10.084 mls/ hr CONT PRN 12/08/16 10:15 12/08/16 10:00 20.167 MLS/HR Doxycycline Hyclate/Dextrose 100 ml @ 50 mls/hr Q12HR 12/09/16 13:00 12/13/16 09:06 50 MLS/HR Epinephrine HCl 3 mg STK-MED ONCE 12/08/16 10:30 12/09/16 13:18 DC Etomidate (Amidate) 20 mg STK-MED ONCE 12/08/16 13:00 12/08/16 13:01 DC Famotidine (Pepcid) 20 mg QHS 12/08/16 21:00 12/12/16 21:56 20 MG Fentanyl Citrate (Fentanyl 2ml Vial) 50 mcg PRN Q1HR PRN 12/09/16 05:15 Fentanyl Citrate (Fentanyl 600 Mcg/30 ml CLOTH GRADER) 30 ml @ 0 mls/hr CONT PRN 12/09/16 05:15 12/13/16 06:21 2.5 MLS/HR Furosemide 20 mg 20 mg 1X ONCE 12/11/16 10:00 12/11/16 10:03 DC 12/11/16 11:10 20 MG Heparin Sodium (Porcine) 2,500 unit 1X ONCE 12/12/16 12:15 12/12/16 12:17 DC 12/12/16 13:08 2,500 UNIT Heparin Sodium (Porcine) 4000 unit 4,000 unit 1X ONCE 12/08/16 09:30 12/08/16 14:21 DC Heparin Sodium (Porcine) 5000 unit 5,000 unit Q8HRS 12/08/16 14:00 12/08/16 14:00 DC Heparin Sodium/ Dextrose 500 ml @ 0 mls/hr CONT PRN 12/08/16 12:45 12/09/16 13:11 0 MLS/HR Heparin Sodium/ Sodium Chloride 1,000 unit 1X ONCE 12/12/16 15:30 12/12/16 15:32 DC 12/12/16 15:41 1,000 UNIT Influenza Virus Vaccine Quadrival (Fluarix Quad [id number] Syringe) 0.5 ml ONCE ONCE 12/08/16 09:00 12/08/16 09:01 DC Info (Do NOT chart on this placeholder) 1 each 1X ONCE 12/07/16 22:45 12/07/16 22:46 UNV Info 1 each 1 each PRN DAILY PRN 12/11/16 08:15 12/12/16 08:21 1 EACH Iodixanol (Visipaque 320) 100 ml 1X ONCE 12/12/16 15:30 12/12/16 15:32 DC 12/12/16 15:41 46 ML Ipratropium [place] (Atrovent) 0.5 mg RTQID 12/09/16 08:00 12/13/16 09:04 0.5 MG Ketorolac Tromethamine 30 mg 30 mg 1X ONCE 12/07/16 14:30 12/07/16 14:31 DC 12/07/16 14:34 30 MG Labetalol HCl (Normodyne) 10 mg 1X ONCE 12/08/16 08:30 12/08/16 08:35 DC 12/08/16 08:56 10 MG Lidocaine HCl 20 ml STK-MED ONCE 12/12/16 15:03 12/12/16 15:04 DC Lidocaine HCl 4 ml 4 ml 1X ONCE 12/12/16 15:30 12/12/16 15:32 DC 12/12/16 15:41 4 ML Lidocaine/Sodium Bicarbonate (Buffered Lidocaine 1%) 3 ml 1X ONCE 12/12/16 12:15 12/12/16 12:17 DC 12/12/16 13:08 3 ML Linezolid (Zyvox Premix) 300 ml @ 300 mls/hr Q12HR 12/11/16 09:00 12/13/16 09:06 300 MLS/HR Magnesium Sulfate/ Dextrose (Magnesium Sulfate PREMIX 2GM) 50 ml @ 25 mls/hr PRN DAILY PRN 12/12/16 08:45 Methocarbamol (Robaxin) 500 mg QID 12/07/16 17:00 12/08/16 10:03 DC 12/07/16 21:19 500 MG Midazolam HCl 100 ml @ 0 mls/hr CONT PRN 12/08/16 10:30 12/13/16 00:24 5 MLS/HR Morphine Sulfate 2 mg PRN Q2HR PRN 12/07/16 16:30 12/08/16 05:28 2 MG Nicotine (Nicoderm Cq 21mg) 1 patch PRN DAILY PRN 12/07/16 16:30 Norepinephrine Bitartrate 16 mg/ Sodium Chloride 266 ml @ 0.99 mls/hr CONT PRN 12/09/16 12:00 12/09/16 20:36 29.92 MLS/HR Norepinephrine Bitartrate 8 mg/ Sodium Chloride 258 ml @ 0 mls/hr CONT PRN 12/08/16 10:15 12/09/16 11:47 DC 12/09/16 08:46 58.05 MLS/HR Ondansetron HCl (Zofran) 4 mg PRN Q6HRS PRN 12/07/16 16:30 Oxycodone/ Acetaminophen (Percocet 5/325) 1 tab PRN Q4HRS PRN 12/07/16 16:30 Phenylephrine HCl 1 mg STK-MED ONCE 12/08/16 10:25 12/08/16 10:26 DC Piperacillin Sod/ Tazobactam Sod 2.25 gm/Sodium Chloride 50 ml @ 100 mls/hr Q6HRS 12/11/16 12:00 12/13/16 06:22 100 MLS/HR Piperacillin Sod/ Tazobactam Sod 3.375 gm/Sodium Chloride 50 ml @ 100 mls/hr Q6HRS 12/09/16 12:00 12/11/16 07:47 DC 12/11/16 06:01 100 MLS/HR Pneumococcal Polyvalent Vaccine (Do NOT chart on this placeholder) 1 each 1X ONCE 12/07/16 22:45 12/07/16 22:46 UNV Pneumococcal Polyvalent Vaccine (Pneumovax 23) 0.5 ml ONCE ONCE 12/08/16 09:00 12/08/16 09:01 DC Potassium Phosphate/Sodium Chloride (Potassium Phosphate/Iv Sodium Chloride 0.9% 100ml) 104.5333 ml @ 52.267 m... Q2H 12/11/16 09:00 12/11/16 14:59 DC 12/11/16 17:22 52.267 MLS/HR Potassium Chloride (KCl Premix 20meq) 50 ml @ 50 mls/hr Q1H 12/13/16 09:00 12/13/16 09:00 DC Propofol (Diprivan) 100 ml @ 0 mls/hr CONT PRN 12/08/16 10:00 12/08/16 23:49 3.227 MLS/HR Sodium Bicarbonate 150 meq/Dextrose 1,150 ml @ 100 mls/hr [id number] 12/09/16 09:00 12/10/16 12:14 DC 12/10/16 09:34 100 MLS/HR Sodium Bicarbonate/ Sodium Chloride (Iv Sodium Chloride 0.45%) 1,050 ml @ 200 mls/hr [id number] 12/08/16 10:30 12/09/16 08:28 DC 12/09/16 05:11 200 MLS/HR Sodium Chloride 1,000 ml @ 1,000 mls/hr 1X ONCE 12/08/16 12:15 12/08/16 13:14 DC 12/08/16 11:00 1,000 MLS/HR Sodium Chloride (Iv Sodium Chloride 0.9% 1000ml Bag) 1,000 ml @ 1,000 mls/hr 1X ONCE 12/08/16 11:45 12/08/16 12:44 DC 12/08/16 10:00 1,000 MLS/HR Succinylcholine Chloride 200 mg 200 mg STK-MED ONCE 12/08/16 13:00 12/08/16 13:01 DC Tramadol HCl (Ultram) 50 mg PRN Q6HRS PRN 12/07/16 16:30 12/07/16 17:11 50 MG Vancomycin HCl 1 gm/Sodium Chloride 250 ml @ 250 mls/hr 1X ONCE 12/08/16 14:00 12/08/16 14:59 DC 12/08/16 14:21 250 MLS/HR Zolpidem Tartrate (Ambien) 5 mg PRN QHS PRN 12/07/16 16:30 12/08/16 10:03 DC 12/08/16 01:06 5 MG Lab Laboratory Tests Test 12/12/16 17:21 12/12/16 17:55 12/13/16 00:15 12/13/16 07:45 Urine Collection Type Unknown Urine Color Yellow Urine Clarity Cloudy Urine pH 6.0 Urine Specific [place] 1.025 Urine Protein 100mg/dL (NEG-TRACE) Urine Glucose (UA) Negativemg/dL (NEG) Urine Ketones (Stick) Negativemg/dL (NEG) Urine Blood Moderate (NEG) Urine Nitrite Negative (NEG) Urine Bilirubin Negative (NEG) Urine Urobilinogen Dipstick 0.2mg/dL (0.2 mg/dL) Urine Leukocyte Esterase Small (NEG) Urine RBC 6-10/HPF (0-2) Urine WBC 5-10/HPF (0-4) Urine Amorphous Sediment Present/HPF Urine Bacteria Few/HPF (0-FEW) Urine Granular Casts Moderate/HPF Potassium Level 3.8mmol/L (3.5-5.1) 3.4mmol/L (3.5-5.1) 4.3mmol/L (3.5-5.1) Sodium Level 143mmol/L (136-145) Chloride Level 109mmol/L (98-107) Carbon Dioxide Level 25mmol/L (21-32) Anion Gap 9 (6-14) Blood Urea Nitrogen 47mg/dL (8-26) Creatinine 3.6mg/dL (0.7-1.3) Estimated GFR (Cockcroft-Gault) 21.9 Glucose Level 109mg/dL (70-99) Calcium Level 7.4mg/dL (8.5-10.1) Phosphorus Level 2.3mg/dL (2.6-4.7) Magnesium Level 2.3mg/dL (1.8-2.4) Creatine Kinase 866U/L (39-308) Albumin 1.1g/dL (3.4-5.0) Test 12/13/16 08:00 O2 Saturation 92% (92-99) Arterial Blood pH 7.43 (7.35-7.45) Arterial Blood pCO2 at Patient Temp 36mmHg (35-46) Arterial Blood pO2 at Patient Temp 63mmHg (75-108) Arterial Blood HCO3 24mmol/L (21-28) Arterial Blood Base Excess 0mmol/L (-3-3) FiO2 40 KEVIN BRANDON MD Dec 13, 2016 09:49
[2016-12-13] MEDS ORDERED: POTASSIUM CHLORIDE 20MEQ 50 ML IV PRN ×2 (10:00)
[2016-12-13] MEDS ORDERED: NORMAL SALINE IV PRN (10:00)
[2016-12-13] MEDS ORDERED: POTASSIUM PHOSPHATE DIBASIC IV PRN (10:00)
[2016-12-13] MEDS ORDERED: MAGNESIUM SULFATE 2GM 50 ML IV PRN (10:00)
[2016-12-13] MEDS ORDERED: FUROSEMIDE INJ 100 MG in IV NORMAL SALINE 100ML 100 ML IV PRN (10:00)
--- NOTE | 2016-12-13 10:05 | PDOC ---
CARDIO Progress Notes Date and Time Date of Service 12/13/2016 Time of Evaluation 1004 Subjective Subjective: Other (intubated and sedated) Vitals Vitals Vital Signs Date Time Temp Pulse Resp B/P Pulse Ox O2 Delivery O2 Flow Rate FiO2 12/13/16 09:31 99 Ventilator 12/13/16 06:51 22 4.0 12/13/16 06:00 96 97/67 12/13/16 04:00 97.6 97.6 Weight Weight [ ] Input and Output Intake and Output Intake and Output 12/13/16 07:00 Intake Total 2233 ml Output Total 890 ml Balance 1343 ml Intake Oral 0 ml IV Total 694 ml Tube Feeding 793 ml Other 746 ml Output Urine Total 890 ml # Bowel Movements 1 Laboratory Labs Laboratory Tests Test 12/12/16 17:21 12/12/16 17:55 12/13/16 00:15 12/13/16 07:45 Urine Collection Type Unknown Urine Color Yellow Urine Clarity Cloudy Urine pH 6.0 Urine Specific [place] 1.025 Urine Protein 100mg/dL (NEG-TRACE) Urine Glucose (UA) Negativemg/dL (NEG) Urine Ketones (Stick) Negativemg/dL (NEG) Urine Blood Moderate (NEG) Urine Nitrite Negative (NEG) Urine Bilirubin Negative (NEG) Urine Urobilinogen Dipstick 0.2mg/dL (0.2 mg/dL) Urine Leukocyte Esterase Small (NEG) Urine RBC 6-10/HPF (0-2) Urine WBC 5-10/HPF (0-4) Urine Amorphous Sediment Present/HPF Urine Bacteria Few/HPF (0-FEW) Urine Granular Casts Moderate/HPF Potassium Level 3.8mmol/L (3.5-5.1) 3.4mmol/L (3.5-5.1) 4.3mmol/L (3.5-5.1) Sodium Level 143mmol/L (136-145) Chloride Level 109mmol/L (98-107) Carbon Dioxide Level 25mmol/L (21-32) Anion Gap 9 (6-14) Blood Urea Nitrogen 47mg/dL (8-26) Creatinine 3.6mg/dL (0.7-1.3) Estimated GFR (Cockcroft-Gault) 21.9 Glucose Level 109mg/dL (70-99) Calcium Level 7.4mg/dL (8.5-10.1) Phosphorus Level 2.3mg/dL (2.6-4.7) Magnesium Level 2.3mg/dL (1.8-2.4) Creatine Kinase 866U/L (39-308) Albumin 1.1g/dL (3.4-5.0) Test 12/13/16 08:00 O2 Saturation 92% (92-99) Arterial Blood pH 7.43 (7.35-7.45) Arterial Blood pCO2 at Patient Temp 36mmHg (35-46) Arterial Blood pO2 at Patient Temp 63mmHg (75-108) Arterial Blood HCO3 24mmol/L (21-28) Arterial Blood Base Excess 0mmol/L (-3-3) FiO2 40 Microbiology Micro Microbiology 12/07/16 Blood Culture - Final, Complete NO GROWTH AFTER 5 DAYS 12/07/16 Stool Culture - Final, Complete 12/07/16 Stool Culture Result 1 (NEFTALI) - Final, Complete 12/07/16 Campylobacter Antigen Assay - Final, Complete 12/07/16 Campylobactor Result 1 - Final, Complete 12/07/16 Shiga Toxin Test - Final, Complete 12/12/16 Gram Stain - Final, Complete Physical Exam HEENT: Neck Supple W Full Motion Chest: Symmetric LUNGS: Other (decreased anteriorly; no crackles) Heart: S1S2, RRR, no thrills, no rubs, other (tele: SR/ST) Abdomen: Soft N/T Extremities: Other (anasarca) Neurology: other (sedated) Assessment Assessment 1. Septic shock with multiorgan failure. Presumed etiology of sepsis is PNA weaned off vasopressors; remains on vent 2. 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 ASHLEY per nephrology JOHN [employer] ADMINISTRATOR Dec 13, 2016 10:05
--- NOTE | 2016-12-13 10:39 | RAD ---
Portable chest, 12/13/2016: History: Respiratory distress Comparison is made to yesterday's study. The ET tube tip lies well above the corey. An NG tube remains in place, although its tip is not visible. A right PICC extends into the superior vena cava. A right jugular dialysis type catheter has been placed extending into the inferior aspect of the superior vena cava near the atriocaval junction. The heart size is unchanged. There are moderate bilateral pulmonary infiltrates with poor definition of the underlying pulmonary vascularity. These appear to have worsened slightly. There may be pleural fluid layering posteriorly consistent contributing to the basilar opacities. There is no evidence of pneumothorax. IMPRESSION: 1. Interval insertion of a right jugular dialysis type catheter in satisfactory position. 2. Multiple other tubes and catheters remain in place as described above. 3. Slight interval worsening of the bilateral pulmonary infiltrates suggesting pulmonary edema. Other possibilities include ARDS or pneumonia.
--- NOTE | 2016-12-13 11:59 | PDOC ---
PULMONARY PROGRESS NOTES Subjective on vent ,on sedation, remains in CHF marginal oxygenation Vitals Vital Signs Date Time Temp Pulse Resp B/P Pulse Ox O2 Delivery O2 Flow Rate FiO2 12/13/16 11:34 96 Ventilator 12/13/16 06:51 22 4.0 12/13/16 06:00 96 97/67 12/13/16 04:00 97.6 97.6 Comments ros as mentioned as above discussed w rn, off sedation agitated. HEENT: Other (nc at perrl, orally intubated) Lungs: Other (Decrease bs) Cardiovascular: S1, S2 Abdomen: Soft, Non-tender, Other (no mass) Extremities: No Edema Skin: Warm Labs Laboratory Tests Test 12/12/16 05:30 12/12/16 06:30 12/12/16 08:10 12/12/16 17:21 White Blood Count 20.6x10^3/uL (4.0-11.0) Red Blood Count 2.91x10^6/uL (4.30-5.70) Hemoglobin 8.8g/dL (13.0-17.5) Hematocrit 26.5% (39.0-53.0) Mean Corpuscular Volume 91fL (79-100) Mean Corpuscular Hemoglobin 30pg (25-35) Mean Corpuscular Hemoglobin Concent 33g/dL (31-37) Red Cell Distribution Width 14.4% (11.5-14.5) Platelet Count 310x10^3/uL (140-400) Neutrophils (%) (Auto) 90% (31-73) Lymphocytes (%) (Auto) 3% (24-48) Monocytes (%) (Auto) 7% (0-9) Eosinophils (%) (Auto) 0% (0-3) Basophils (%) (Auto) 0% (0-3) Neutrophils # (Auto) 18.4x10^3uL (1.8-7.7) Lymphocytes # (Auto) 0.6x10^3/uL (1.0-4.8) Monocytes # (Auto) 1.4x10^3/uL (0.0-1.1) Eosinophils # (Auto) 0.0x10^3/uL (0.0-0.7) Basophils # (Auto) 0.1x10^3/uL (0.0-0.2) Sodium Level 141mmol/L (136-145) Potassium Level 3.4mmol/L (3.5-5.1) Chloride Level 106mmol/L (98-107) Carbon Dioxide Level 25mmol/L (21-32) Anion Gap 10 (6-14) Blood Urea Nitrogen 49mg/dL (8-26) Creatinine 3.8mg/dL (0.7-1.3) Estimated GFR (Cockcroft-Gault) 20.6 Glucose Level 117mg/dL (70-99) Calcium Level 7.1mg/dL (8.5-10.1) Phosphorus Level 2.6mg/dL (2.6-4.7) Magnesium Level 2.2mg/dL (1.8-2.4) Creatine Kinase 1785U/L (39-308) Albumin 1.1g/dL (3.4-5.0) O2 Saturation 90% (92-99) Arterial Blood pH 7.43 (7.35-7.45) Arterial Blood pCO2 at Patient Temp 35mmHg (35-46) Arterial Blood pO2 at Patient Temp 60mmHg (75-108) Arterial Blood HCO3 23mmol/L (21-28) Arterial Blood Base Excess -1mmol/L (-3-3) FiO2 35 Urine Collection Type Unknown Urine Color Yellow Urine Clarity Cloudy Urine pH 6.0 Urine Specific [place] 1.025 Urine Protein 100mg/dL (NEG-TRACE) Urine Glucose (UA) Negativemg/dL (NEG) Urine Ketones (Stick) Negativemg/dL (NEG) Urine Blood Moderate (NEG) Urine Nitrite Negative (NEG) Urine Bilirubin Negative (NEG) Urine Urobilinogen Dipstick 0.2mg/dL (0.2 mg/dL) Urine Leukocyte Esterase Small (NEG) Urine RBC 6-10/HPF (0-2) Urine WBC 5-10/HPF (0-4) Urine Amorphous Sediment Present/HPF Urine Bacteria Few/HPF (0-FEW) Urine Granular Casts Moderate/HPF Test 12/12/16 17:55 12/13/16 00:15 12/13/16 07:45 12/13/16 08:00 Potassium Level 3.8mmol/L (3.5-5.1) 3.4mmol/L (3.5-5.1) 4.3mmol/L (3.5-5.1) Sodium Level 143mmol/L (136-145) Chloride Level 109mmol/L (98-107) Carbon Dioxide Level 25mmol/L (21-32) Anion Gap 9 (6-14) Blood Urea Nitrogen 47mg/dL (8-26) Creatinine 3.6mg/dL (0.7-1.3) Estimated GFR (Cockcroft-Gault) 21.9 Glucose Level 109mg/dL (70-99) Calcium Level 7.4mg/dL (8.5-10.1) Phosphorus Level 2.3mg/dL (2.6-4.7) Magnesium Level 2.3mg/dL (1.8-2.4) Creatine Kinase 866U/L (39-308) Albumin 1.1g/dL (3.4-5.0) O2 Saturation 92% (92-99) Arterial Blood pH 7.43 (7.35-7.45) Arterial Blood pCO2 at Patient Temp 36mmHg (35-46) Arterial Blood pO2 at Patient Temp 63mmHg (75-108) Arterial Blood HCO3 24mmol/L (21-28) Arterial Blood Base Excess 0mmol/L (-3-3) FiO2 40 Laboratory Tests Test 12/12/16 17:21 12/12/16 17:55 12/13/16 00:15 12/13/16 07:45 Urine Collection Type Unknown Urine Color Yellow Urine Clarity Cloudy Urine pH 6.0 Urine Specific [place] 1.025 Urine Protein 100mg/dL (NEG-TRACE) Urine Glucose (UA) Negativemg/dL (NEG) Urine Ketones (Stick) Negativemg/dL (NEG) Urine Blood Moderate (NEG) Urine Nitrite Negative (NEG) Urine Bilirubin Negative (NEG) Urine Urobilinogen Dipstick 0.2mg/dL (0.2 mg/dL) Urine Leukocyte Esterase Small (NEG) Urine RBC 6-10/HPF (0-2) Urine WBC 5-10/HPF (0-4) Urine Amorphous Sediment Present/HPF Urine Bacteria Few/HPF (0-FEW) Urine Granular Casts Moderate/HPF Potassium Level 3.8mmol/L (3.5-5.1) 3.4mmol/L (3.5-5.1) 4.3mmol/L (3.5-5.1) Sodium Level 143mmol/L (136-145) Chloride Level 109mmol/L (98-107) Carbon Dioxide Level 25mmol/L (21-32) Anion Gap 9 (6-14) Blood Urea Nitrogen 47mg/dL (8-26) Creatinine 3.6mg/dL (0.7-1.3) Estimated GFR (Cockcroft-Gault) 21.9 Glucose Level 109mg/dL (70-99) Calcium Level 7.4mg/dL (8.5-10.1) Phosphorus Level 2.3mg/dL (2.6-4.7) Magnesium Level 2.3mg/dL (1.8-2.4) Creatine Kinase 866U/L (39-308) Albumin 1.1g/dL (3.4-5.0) Test 12/13/16 08:00 O2 Saturation 92% (92-99) Arterial Blood pH 7.43 (7.35-7.45) Arterial Blood pCO2 at Patient Temp 36mmHg (35-46) Arterial Blood pO2 at Patient Temp 63mmHg (75-108) Arterial Blood HCO3 24mmol/L (21-28) Arterial Blood Base Excess 0mmol/L (-3-3) FiO2 40 Medications Active Scripts Medications Dose Route/Sig Days Date Category Percocet 5-325 Mg Tablet (Oxycodone/Acetaminophen) 1 Each Tablet 1-2 Tab PO Q4HRS 05/25/16 Reported Ultram (Tramadol Hcl) 50 Mg Tablet 50 Mg PO Q6H PRN 05/22/16 Rx Robaxin (Methocarbamol) 500 Mg Tablet 500 Mg PO QID 05/22/16 Rx Comments cxr reviewed 12/13 persistent bilateral infiltrates c/w CHF Impression . 1. Acute hypoxemic respiratory failure, multifactorial in etiology.(septic shock, CHF, Metabolic acidosis, Renal failure,Possible pneumonia) 2. Persistent bilateral infiltrates, suspect persistent CHF/ cannot exclude Pneumonia 3. CMP (EF 30%) 4. Septic shock POA.off pressors 5. Acute kidney injury. 6. Smoker. 7. History of drug abuse. 8. Status post cardiopulmonary arrest. 9. Hypotension.off pressors 10.Metabolic acidosis, improving 11. s/ p cath the Right Atrial Pressure is 20 mmHg. The Right Ventricular Pressure is 50/30 mmHg. The Pulmonary Artery Pressure is 50/29 mmHg. The Pulmonary Catheter Wedge Pressure is 25 mmHg. LVEDP 30.This is c/w ongoing CHF Plan . 1. AC mode, not ready for weaning, marginal oxygenation due to persistent CHF 2. sedation 3. Bronchodilator, 4. s/p Bronch , severe tracheitis, follow cultures 5. ID recommendations 6. Continue abx 7. Pepcid and heparin for stress ulcer and DVT prophylaxis. 8. Urine for legionella and strep pneumonia antigen, neg. 9. Urine drug screen, pos.for cocaine 10.Follow Cardiology and nephrology recommendations. Cath 11. Marginal oxygenation, / May benefit from HD. cath findings c/w CHF.d/w Dr Lyubov Jones cct 30 min SUZIE MCCRAY MD Dec 13, 2016 11:59
[2016-12-13] MEDS ORDERED: IV NORMAL SALINE 1000ML BAG 1,000 ML IV PRN ×2 (14:51)
[2016-12-13] MEDS ORDERED: DIALYSIS PATIENT. MC PRN ×2 (15:00)
--- NOTE | 2016-12-13 15:06 | PATHOLOGY ---
CYTOPATHOLOGY REPORT CLINICAL HISTORY: Resp failure. SPECIMEN(S) RECEIVED: A.Bronchoalveolar lavage, RLL FINAL DIAGNOSIS: Right lower lobe bronchoalveolar lavage, ThinPrep: - No malignant cells identified. - Few pigmented pulmonary macrophages and bronchial epithelial cells are identified within a background of obscuring acute inflammation. (JPM:; d/t: 12/13/16) PATHOLOGIST: Brandon Astudillo M.D. REPORT ELECTRONICALLY SIGNED BY: Brandon Astudillo M.D. DATE/TIME: 12/13/2016 13:44 GROSS PATHOLOGY: A. Bronchoalveolar lavage, RLL: The specimen is submitted unfixed, labeled "Marlen Cruz". Received by the Cytology Department is five mL of cloudy fluid. One ThinPrep slide was prepared. (clt 12.12.2016) DREDGE MASTER(S): DAVID Aguilera(ASCP) INITIAL CPT CODE(S): A; 98970 Professional services performed by [facility] [place] [address] Technical services performed by [facility] at [address] [place] [address], [address] [address]. PATIENT: MARLEN CRUZ /AGE: 12 1965 (Age: 51) SEX: M PATIENT #: [id number] ALT CASE #: SPECIMEN COLLECTION DATE: 12/12/2016 SPECIMEN RECEIVED DATE: 12/12/[address] [facility] [address] [place] [address], [address] [place] [address] PHONE: [phone] DIRECTOR: Constantino Peters M.D. * * * END OF REPORT * * *
[2016-12-13 20:10] LABS: HEP B SURFACE ABDY Non Reactive (.)
[2016-12-13] MEDS: FAMOTIDINE 20 MG/2 ML VIAL IVP SCH (20:50)
[2016-12-14] VITALS (23 sets, daily range): BP systolic 86–114; BP diastolic 54–79
[2016-12-14] MEDS: PIPERACILLIN/TAZOBACTAM 2.25 GM in IV NORMAL SALINE 50ML 50 ML IV SCH ×5 (00:16→23:43)
[2016-12-14] MEDS: FENTANYL STANDARD PCA 30 ML IV PRN ×4 (01:49→23:58)
[2016-12-14 05:51] LABS: BASO # 0.1 x10^3/uL (0.0-0.2); BASO % 0 % (0-3); EOS % 1 % (0-3); HEMATOCRIT 25.8 % (39.0-53.0); HEMOGLOBIN 8.4 g/dL (13.0-17.5); LYMPH # 0.9 x10^3/uL (1.0-4.8); LYMPH % 5 % (24-48); MEAN CORPUSCULAR HEMOGLOBIN 30 pg (25-35); MEAN CORPUSCULAR HGB CONC 32 g/dL (31-37); MEAN CORPUSCULAR VOLUME 91 fL (79-100); MONO % 10 % (0-9); NEUT % 84 % (31-73); PLATELET COUNT 325 x10^3/uL (140-400); RED BLOOD COUNT 2.83 x10^6/uL (4.30-5.70); RED CELL DISTRIBUTION WIDTH 14.4 % (11.5-14.5); WHITE BLOOD COUNT 17.6 x10^3/uL (4.0-11.0)
[2016-12-14 06:38] LABS: ALBUMIN 1.2 g/dL (3.4-5.0); CALCIUM 7.3 mg/dL (8.5-10.1); CREATININE 2.6 mg/dL (0.7-1.3); GFR 31.9; PHOSPHORUS 1.9 mg/dL (2.6-4.7); POTASSIUM 4.1 mmol/L (3.5-5.1)
[2016-12-14] MEDS: IPRATROPIUM BROMIDE 0.5 MG/2.5 ML NEBU. NEB SCH ×4 (08:02→20:14)
[2016-12-14] MEDS: BUDESONIDE 0.5 MG/2 ML NEBU NEB SCH ×2 (08:03→20:14)
--- NOTE | 2016-12-14 08:22 | PDOC ---
SUBJECTIVE ROS ASHLEY / ATN Sedated and intubated OBJECTIVE Vital Signs Vital Signs Date Time Temp Pulse Resp B/P Pulse Ox O2 Delivery O2 Flow Rate FiO2 12/14/16 08:08 98 Ventilator 12/14/16 06:00 81 24 93/63 12/14/16 04:00 97.1 97.1 12/14/16 04:00 4.0 I & 0 Intake and Output 12/14/16 07:00 Intake Total 3668 ml Output Total 1432 ml Balance 2236 ml IV Total 2431 ml Tube Feeding 877 ml Other 360 ml Output Urine Total 1432 ml PHYSICAL EXAM Physical Exam GEN: Intubated on the Vent, In no distress EYES: Pupils appears somewhat miotic, Conjunctiva Normal EN: No EN Drainage, Mucous Membranes moist NECK: no JVD, no JVP, Supple, no Thyromegaly CVS: S1S2, no Murmur, No Gallop, No Rub,no Edema RESP: rare Rales, no Rhonchi,no Acc. Muscle Use GI: BS + ve, NO Bruit, Non Tender, Non Distended : no CVA tenderness, no Suprapubic Tenderness DIAGNOSIS/ASSESSMENT Assessment & Plan ARF/ ATN post code; Cocaine ? and Rhabdo: Dialysis as below F 180 NR 3.0 Hrs 3 K 2.5 Ca 140 Na 30HC03 Qb 350 + Qd 500+ Heparin 0 Units Uf 2-3 Kgs or to dry weight as tolerated May give 25-50 gms of 25% Albumin if needed to maintain Hemodynamic stability Treatment plan reviewed and discussed with international sales representative Edema - HD later today ? Rhabdo - CK dropping now Resp Failure - D/w Dr Dewey yesterday and hence HD was initiated to assist with fluid removal and help resp status Low PHos - replace as ordered Sev. Malnutrition - TF for now; IV ALb to help with Hemodynamics too Prognosis is guarded COMMENT/RELEVANT DATA Meds Current Medications Medications (Trade) Dose Ordered Sig/Flakito Start Time Stop Time Status Last Admin Dose Admin Acetaminophen (Tylenol) 500 mg PRN Q6HRS PRN 12/07/16 16:30 12/09/16 15:04 500 MG Acetylcysteine 1200 mg 1,200 mg BID 12/12/16 09:00 12/14/16 08:59 12/13/16 20:50 1,200 MG Albumin Human (Albuminar) 100 ml @ 100 mls/hr TID 12/10/16 14:00 12/10/16 14:00 DC Albuterol/ Ipratropium (Duoneb) 3 ml RTQID 12/08/16 12:30 12/09/16 05:17 DC 12/08/16 19:44 3 ML Alprazolam (Xanax) 0.5 mg 1X ONCE 12/08/16 08:45 12/08/16 08:46 DC 12/08/16 08:40 0.5 MG Amino Acids/ Glycerin/ Electrolytes 1,000 ml @ 80 mls/hr [id number] 12/10/16 12:30 12/10/16 12:30 DC Aspirin (Aspirin) 300 mg 1X ONCE 12/08/16 10:45 12/08/16 10:46 DC Aspirin (Jada Aspirin) 325 mg [id number] 12/09/16 08:00 12/09/16 08:00 DC Aspirin (Children'S Aspirin) 81 mg [id number] 12/09/16 08:00 12/13/16 09:05 81 MG Atropine Sulfate 0.5 mg STK-MED ONCE 12/08/16 10:30 12/09/16 13:18 DC Azithromycin 250 ml @ 250 mls/hr 1X ONCE 12/07/16 15:15 12/07/16 16:14 DC 12/07/16 15:48 250 MLS/HR Budesonide 0.5 mg 0.5 mg RTBID 12/08/16 12:30 12/14/16 08:03 0.5 MG Calcium Gluconate 1000 mg 1,000 mg 1X ONCE 12/10/16 10:00 12/10/16 10:01 UNV Calcium Gluconate 1000 mg/Sodium Chloride 110 ml @ 220 mls/hr 1X ONCE 12/10/16 12:00 12/10/16 12:29 DC 12/10/16 11:36 220 MLS/HR Calcium Gluconate 2000 mg 2,000 mg TID 12/10/16 14:00 12/10/16 14:00 DC Ceftriaxone Sodium 1 gm/ Sodium Chloride 50 ml @ 100 mls/hr Q24H 12/08/16 15:30 12/08/16 15:30 DC Ceftriaxone Sodium (Rocephin 1gm Ivpb For Omni) 50 ml @ 100 mls/hr 1X ONCE 12/07/16 15:15 12/07/16 15:44 DC 12/07/16 15:29 100 MLS/HR Chlorhexidine Gluconate 15 ml 15 ml BID 12/09/16 09:00 12/13/16 20:53 15 ML Dobutamine HCl/ Dextrose 250 ml @ 0 mls/hr CONT PRN 12/11/16 14:45 12/11/16 15:05 4.601 MLS/HR Dopamine HCl/ Dextrose 250 ml @ 10.084 mls/ hr CONT PRN 12/08/16 10:15 12/08/16 10:00 20.167 MLS/HR Doxycycline Hyclate/Dextrose 100 ml @ 50 mls/hr Q12HR 12/09/16 13:00 12/13/16 20:50 50 MLS/HR Epinephrine HCl 3 mg STK-MED ONCE 12/08/16 10:30 12/09/16 13:18 DC Etomidate (Amidate) 20 mg STK-MED ONCE 12/08/16 13:00 12/08/16 13:01 DC Famotidine (Pepcid) 20 mg QHS 12/08/16 21:00 12/13/16 20:50 20 MG Fentanyl Citrate (Fentanyl 2ml Vial) 50 mcg PRN Q1HR PRN 12/09/16 05:15 Fentanyl Citrate (Fentanyl 600 Mcg/30 ml CROP ROLLER) 30 ml @ 0 mls/hr CONT PRN 12/09/16 05:15 12/14/16 01:49 50 MLS/HR Furosemide 100 mg/ Sodium Chloride 100 ml @ 0 mls/hr CONT PRN 12/13/16 10:00 12/13/16 11:43 2.5 MLS/HR Furosemide 20 mg 20 mg 1X ONCE 12/11/16 10:00 12/11/16 10:03 DC 12/11/16 11:10 20 MG Heparin Sodium (Porcine) 2,500 unit 1X ONCE 12/12/16 12:15 12/12/16 12:17 DC 12/12/16 13:08 2,500 UNIT Heparin Sodium (Porcine) 4000 unit 4,000 unit 1X ONCE 12/08/16 09:30 12/08/16 14:21 DC Heparin Sodium (Porcine) 5000 unit 5,000 unit Q8HRS 12/08/16 14:00 1/13/17 14:00 DC Heparin Sodium/ Dextrose 500 ml @ 0 mls/hr CONT PRN 12/08/16 12:45 12/13/16 13:10 DC 12/09/16 13:11 0 MLS/HR Heparin Sodium/ Sodium Chloride 1,000 unit 1X ONCE 12/12/16 15:30 12/12/16 15:32 DC 12/12/16 15:41 1,000 UNIT Influenza Virus Vaccine Quadrival (Fluarix Quad 1568-2078 Syringe) 0.5 ml ONCE ONCE 12/08/16 09:00 12/08/16 09:01 DC Info (Do NOT chart on this placeholder) 1 each 1X ONCE 12/07/16 22:45 12/07/16 22:46 UNV Info (PHARMACY MONITORING -- do not chart) 1 each PRN DAILY PRN 12/13/16 15:00 Info 1 each 1 each PRN DAILY PRN 12/11/16 08:15 12/13/16 13:13 DC 12/12/16 08:21 1 EACH Iodixanol (Visipaque 320) 100 ml 1X ONCE 12/12/16 15:30 12/12/16 15:32 DC 12/12/16 15:41 46 ML Ipratropium [place] (Atrovent) 0.5 mg RTQID 12/09/16 08:00 12/14/16 08:02 0.5 MG Ketorolac Tromethamine 30 mg 30 mg 1X ONCE 12/07/16 14:30 12/07/16 14:31 DC 12/07/16 14:34 30 MG Labetalol HCl (Normodyne) 10 mg 1X ONCE 12/08/16 08:30 12/08/16 08:35 DC 12/08/16 08:56 10 MG Lidocaine HCl 20 ml STK-MED ONCE 12/12/16 15:03 12/12/16 15:04 DC Lidocaine HCl 4 ml 4 ml 1X ONCE 12/12/16 15:30 12/12/16 15:32 DC 12/12/16 15:41 4 ML Lidocaine/Sodium Bicarbonate (Buffered Lidocaine 1%) 3 ml 1X ONCE 12/12/16 12:15 12/12/16 12:17 DC 12/12/16 13:08 3 ML Linezolid (Zyvox Premix) 300 ml @ 300 mls/hr Q12HR 12/11/16 09:00 12/13/16 20:50 300 MLS/HR Magnesium Sulfate/ Dextrose 50 ml @ 25 mls/hr PRN DAILY PRN 12/13/16 10:00 Magnesium Sulfate/ Dextrose (Magnesium Sulfate PREMIX 2GM) 50 ml @ 25 mls/hr PRN DAILY PRN 12/12/16 08:45 12/13/16 09:57 DC Methocarbamol (Robaxin) 500 mg QID 12/07/16 17:00 12/08/16 10:03 DC 12/07/16 21:19 500 MG Midazolam HCl 100 ml @ 0 mls/hr CONT PRN 12/08/16 10:30 12/13/16 23:55 5 MLS/HR Morphine Sulfate 2 mg PRN Q2HR PRN 12/07/16 16:30 12/08/16 05:28 2 MG Nicotine (Nicoderm Cq 21mg) 1 patch PRN DAILY PRN 12/07/16 16:30 Norepinephrine Bitartrate 16 mg/ Sodium Chloride 266 ml @ 0.99 mls/hr CONT PRN 12/09/16 12:00 12/09/16 20:36 29.92 MLS/HR Norepinephrine Bitartrate 8 mg/ Sodium Chloride 258 ml @ 0 mls/hr CONT PRN 12/08/16 10:15 12/09/16 11:47 DC 12/09/16 08:46 58.05 MLS/HR Ondansetron HCl (Zofran) 4 mg PRN Q6HRS PRN 12/07/16 16:30 Oxycodone/ Acetaminophen (Percocet 5/325) 1 tab PRN Q4HRS PRN 12/07/16 16:30 Phenylephrine HCl 1 mg STK-MED ONCE 12/08/16 10:25 12/08/16 10:26 DC Piperacillin Sod/ Tazobactam Sod 2.25 gm/Sodium Chloride 50 ml @ 100 mls/hr Q6HRS 12/11/16 12:00 12/14/16 05:42 100 MLS/HR Piperacillin Sod/ Tazobactam Sod 3.375 gm/Sodium Chloride 50 ml @ 100 mls/hr Q6HRS 12/09/16 12:00 12/11/16 07:47 DC 12/11/16 06:01 100 MLS/HR Pneumococcal Polyvalent Vaccine (Do NOT chart on this placeholder) 1 each 1X ONCE 12/07/16 22:45 12/07/16 22:46 UNV Pneumococcal Polyvalent Vaccine (Pneumovax 23) 0.5 ml ONCE ONCE 12/08/16 09:00 12/08/16 09:01 DC Potassium Phosphate 40 mmol/ Sodium Chloride 113.3333 ml @ 52.267 m... PRN 1X PRN 12/13/16 10:00 12/13/16 23:59 DC Potassium Phosphate/Sodium Chloride (Potassium Phosphate/Iv Sodium Chloride 0.9% 100ml) 104.5333 ml @ 52.267 m... Q2H 12/11/16 09:00 12/11/16 14:59 DC 12/11/16 17:22 52.267 MLS/HR Potassium Chloride 50 ml @ 50 mls/hr PRN Q2HR PRN 12/13/16 10:00 Potassium Chloride (KCl Premix 20meq) 50 ml @ 50 mls/hr Q1H 12/12/16 09:00 12/12/16 10:59 DC 12/12/16 13:16 50 MLS/HR Propofol (Diprivan) 100 ml @ 0 mls/hr CONT PRN 12/08/16 10:00 12/08/16 23:49 3.227 MLS/HR Sodium Bicarbonate 150 meq/Dextrose 1,150 ml @ 100 mls/hr [id number] 12/09/16 09:00 12/10/16 12:14 DC 12/10/16 09:34 100 MLS/HR Sodium Bicarbonate/ Sodium Chloride (Iv Sodium Chloride 0.45%) 1,050 ml @ 200 mls/hr Q5H15M 12/08/16 10:30 12/09/16 08:28 DC 12/09/16 05:11 200 MLS/HR Sodium Chloride (Iv Sodium Chloride 0.9% 1000ml Bag) 1,000 ml @ 400 mls/hr Q2H30M PRN 12/13/16 14:51 12/14/16 02:50 DC Succinylcholine Chloride 200 mg 200 mg STK-MED ONCE 12/08/16 13:00 12/08/16 13:01 DC Tramadol HCl (Ultram) 50 mg PRN Q6HRS PRN 12/07/16 16:30 12/07/16 17:11 50 MG Vancomycin HCl 1 gm/Sodium Chloride 250 ml @ 250 mls/hr 1X ONCE 12/08/16 14:00 12/08/16 14:59 DC 12/08/16 14:21 250 MLS/HR Zolpidem Tartrate (Ambien) 5 mg PRN QHS PRN 12/07/16 16:30 12/08/16 10:03 DC 12/08/16 01:06 5 MG Lab Laboratory Tests Test 12/13/16 19:30 12/14/16 01:00 12/14/16 05:00 Potassium Level 3.9mmol/L (3.5-5.1) 3.6mmol/L (3.5-5.1) 4.1mmol/L (3.5-5.1) White Blood Count 17.6x10^3/uL (4.0-11.0) Red Blood Count 2.83x10^6/uL (4.30-5.70) Hemoglobin 8.4g/dL (13.0-17.5) Hematocrit 25.8% (39.0-53.0) Mean Corpuscular Volume 91fL (79-100) Mean Corpuscular Hemoglobin 30pg (25-35) Mean Corpuscular Hemoglobin Concent 32g/dL (31-37) Red Cell Distribution Width 14.4% (11.5-14.5) Platelet Count 325x10^3/uL (140-400) Neutrophils (%) (Auto) 84% (31-73) Lymphocytes (%) (Auto) 5% (24-48) Monocytes (%) (Auto) 10% (0-9) Eosinophils (%) (Auto) 1% (0-3) Basophils (%) (Auto) 0% (0-3) Neutrophils # (Auto) 14.8x10^3uL (1.8-7.7) Lymphocytes # (Auto) 0.9x10^3/uL (1.0-4.8) Monocytes # (Auto) 1.7x10^3/uL (0.0-1.1) Eosinophils # (Auto) 0.2x10^3/uL (0.0-0.7) Basophils # (Auto) 0.1x10^3/uL (0.0-0.2) Sodium Level 141mmol/L (136-145) Chloride Level 105mmol/L (98-107) Carbon Dioxide Level 27mmol/L (21-32) Anion Gap 9 (6-14) Blood Urea Nitrogen 27mg/dL (8-26) Creatinine 2.6mg/dL (0.7-1.3) Estimated GFR (Cockcroft-Gault) 31.9 Glucose Level 92mg/dL (70-99) Calcium Level 7.3mg/dL (8.5-10.1) Phosphorus Level 1.9mg/dL (2.6-4.7) Magnesium Level 1.8mg/dL (1.8-2.4) Creatine Kinase 487U/L (39-308) Albumin 1.2g/dL (3.4-5.0) KEVIN BRANDON MD Dec 14, 2016 08:22
--- NOTE | 2016-12-14 08:35 | PDOC ---
Infectious Disease Note Subjective Subjective Sedated. BP stable. Off pressors Tube feedings ROS ROS GEN: Denies fevers, chills, sweats HEENT: Denies blurred vision, sore throat CV: Denies chest pain RESP: Denies shortness of air, cough GI: Denies n/v/d NEURO: Denies confusion, dizziness MSK: Denies weakness, joint pain/swelling Vital Sign Vital Signs Vital Signs Date Time Temp Pulse Resp B/P Pulse Ox O2 Delivery O2 Flow Rate FiO2 12/14/16 08:08 98 Ventilator 12/14/16 06:00 81 24 93/63 12/14/16 04:00 97.1 97.1 12/14/16 04:00 4.0 Physical Exam PHYSICAL EXAM GENERAL: Intubated and sedated HEENT: Pupils small and equal. ETT. OGT LUNGS: Clear. vent. HEART: S1S2, no gallop, no murmur. ABD: Soft, BS present : Garcia EXT: generalized 1 to 2 plus. Mitts STEELER: Sedated SKIN: No rash RUE PICC. (12/09). clean. RIJ HD cath clean Peripheral IV Labs Lab Laboratory Tests Test 12/13/16 19:30 12/14/16 01:00 12/14/16 05:00 Potassium Level 3.9mmol/L (3.5-5.1) 3.6mmol/L (3.5-5.1) 4.1mmol/L (3.5-5.1) White Blood Count 17.6x10^3/uL (4.0-11.0) Red Blood Count 2.83x10^6/uL (4.30-5.70) Hemoglobin 8.4g/dL (13.0-17.5) Hematocrit 25.8% (39.0-53.0) Mean Corpuscular Volume 91fL (79-100) Mean Corpuscular Hemoglobin 30pg (25-35) Mean Corpuscular Hemoglobin Concent 32g/dL (31-37) Red Cell Distribution Width 14.4% (11.5-14.5) Platelet Count 325x10^3/uL (140-400) Neutrophils (%) (Auto) 84% (31-73) Lymphocytes (%) (Auto) 5% (24-48) Monocytes (%) (Auto) 10% (0-9) Eosinophils (%) (Auto) 1% (0-3) Basophils (%) (Auto) 0% (0-3) Neutrophils # (Auto) 14.8x10^3uL (1.8-7.7) Lymphocytes # (Auto) 0.9x10^3/uL (1.0-4.8) Monocytes # (Auto) 1.7x10^3/uL (0.0-1.1) Eosinophils # (Auto) 0.2x10^3/uL (0.0-0.7) Basophils # (Auto) 0.1x10^3/uL (0.0-0.2) Sodium Level 141mmol/L (136-145) Chloride Level 105mmol/L (98-107) Carbon Dioxide Level 27mmol/L (21-32) Anion Gap 9 (6-14) Blood Urea Nitrogen 27mg/dL (8-26) Creatinine 2.6mg/dL (0.7-1.3) Estimated GFR (Cockcroft-Gault) 31.9 Glucose Level 92mg/dL (70-99) Calcium Level 7.3mg/dL (8.5-10.1) Phosphorus Level 1.9mg/dL (2.6-4.7) Magnesium Level 1.8mg/dL (1.8-2.4) Creatine Kinase 487U/L (39-308) Albumin 1.2g/dL (3.4-5.0) Objective Assessment Sepsis with lactic acidosis. POA - off Pressors Fever - curve better Leukocytosis - better Pneumonia - S/pBronch 12/12 - GPC on gram stain. Cult neg so far -Influenza screen neg -Strep antigen & legionella Ag neg Acute encephalopathy Acute respiratory failure s/p intubation s/p PEA cardiopulmonary arrest - S/p Cath 12/12 -TTE EF 30-35%. -No veg noted Hypotension on vasopressor support x 2. Now off ASHLEY - Renal following - worse Polysubstance abuse Diarrhea. c. diff neg. stool cx neg Plan Plan of Care Cont Zosyn//Zyvox taper soon D/c Doxy F/u bronch results HD today One time dose vanc 12/08 Rocephin and azithromycin 12/07 Monitor labs/temp Supportive care Critically ill LILIANA SEVERINO MD Dec 14, 2016 08:35
[2016-12-14] MEDS: CHLORHEXIDINE 0.12% 15 ML MOUTHWASH. MM SCH ×2 (08:38→21:04)
[2016-12-14] MEDS: ASPIRIN 81 MG TAB.CHEW PO SCH (08:38)
[2016-12-14] MEDS: ALBUMIN HUMAN 25% 100 ML IV SCH ×3 (08:39→21:05)
[2016-12-14 08:43] LABS: HCO3 ABG 26 mmol/L (21-28); PCO2 ABG 36 mmHg (35-46); PH ABG 7.48 (7.35-7.45); PO2 ABG 80 mmHg (75-108); SAT O2 ABG 96 % (92-99)
[2016-12-14 08:51] LABS: FIO2 ABG 40
[2016-12-14] MEDS ORDERED: SODIUM PHOSPHATE IV SCH (09:00)
[2016-12-14] MEDS ORDERED: DEXTROSE 5% IV SCH (09:00)
--- NOTE | 2016-12-14 09:06 | RAD ---
Indication respiratory distress. A single view of the chest was obtained and is compared to an examination one day earlier. Pulmonary infiltrates persist but appear slightly improved. There is additional volume loss in the left lower lobe suggesting pleural fluid and atelectasis appearing similar. A definite new finding in the chest is not seen. Right-sided dialysis catheter and nasogastric tube are noted. There is a right PICC line. Endotracheal tube appears appropriately positioned above the corey. IMPRESSION: Various support tubes and catheters appear appropriately positioned. Pulmonary infiltrates persist but appear improved slightly.
[2016-12-14] MEDS: DEXTROSE 5% IV SCH ×2 (09:21→14:59)
[2016-12-14] MEDS: SODIUM PHOSPHATE IV SCH ×2 (09:21→14:59)
--- NOTE | 2016-12-14 10:26 | PDOC ---
NADYAJOHN Felix TITLE SEARCH MANAGER 12/14/16 1026: CARDIO Progress Notes Date and Time Date of Service 12/14/2016 Time of Evaluation 1024 Subjective Subjective: Other (intubated and sedated) Vitals Vitals Vital Signs Date Time Temp Pulse Resp B/P Pulse Ox O2 Delivery O2 Flow Rate FiO2 12/14/16 10:00 83 25 86/54 99 Ventilator 12/14/16 08:00 98.4 98.4 12/14/16 04:00 4.0 Weight Weight [ ] Input and Output Intake and Output Intake and Output 12/14/16 07:00 Intake Total 3668 ml Output Total 1477 ml Balance 2191 ml IV Total 2431 ml Tube Feeding 877 ml Other 360 ml Output Urine Total 1477 ml Laboratory Labs Laboratory Tests Test 12/13/16 19:30 12/14/16 01:00 12/14/16 05:00 12/14/16 08:00 Potassium Level 3.9mmol/L (3.5-5.1) 3.6mmol/L (3.5-5.1) 4.1mmol/L (3.5-5.1) White Blood Count 17.6x10^3/uL (4.0-11.0) Red Blood Count 2.83x10^6/uL (4.30-5.70) Hemoglobin 8.4g/dL (13.0-17.5) Hematocrit 25.8% (39.0-53.0) Mean Corpuscular Volume 91fL (79-100) Mean Corpuscular Hemoglobin 30pg (25-35) Mean Corpuscular Hemoglobin Concent 32g/dL (31-37) Red Cell Distribution Width 14.4% (11.5-14.5) Platelet Count 325x10^3/uL (140-400) Neutrophils (%) (Auto) 84% (31-73) Lymphocytes (%) (Auto) 5% (24-48) Monocytes (%) (Auto) 10% (0-9) Eosinophils (%) (Auto) 1% (0-3) Basophils (%) (Auto) 0% (0-3) Neutrophils # (Auto) 14.8x10^3uL (1.8-7.7) Lymphocytes # (Auto) 0.9x10^3/uL (1.0-4.8) Monocytes # (Auto) 1.7x10^3/uL (0.0-1.1) Eosinophils # (Auto) 0.2x10^3/uL (0.0-0.7) Basophils # (Auto) 0.1x10^3/uL (0.0-0.2) Sodium Level 141mmol/L (136-145) Chloride Level 105mmol/L (98-107) Carbon Dioxide Level 27mmol/L (21-32) Anion Gap 9 (6-14) Blood Urea Nitrogen 27mg/dL (8-26) Creatinine 2.6mg/dL (0.7-1.3) Estimated GFR (Cockcroft-Gault) 31.9 Glucose Level 92mg/dL (70-99) Calcium Level 7.3mg/dL (8.5-10.1) Phosphorus Level 1.9mg/dL (2.6-4.7) Magnesium Level 1.8mg/dL (1.8-2.4) Creatine Kinase 487U/L (39-308) Albumin 1.2g/dL (3.4-5.0) O2 Saturation 96% (92-99) Arterial Blood pH 7.48 (7.35-7.45) Arterial Blood pCO2 at Patient Temp 36mmHg (35-46) Arterial Blood pO2 at Patient Temp 80mmHg (75-108) Arterial Blood HCO3 26mmol/L (21-28) Arterial Blood Base Excess 3mmol/L (-3-3) FiO2 40 Microbiology Micro Microbiology 12/07/16 Blood Culture - Final, Complete NO GROWTH AFTER 5 DAYS 12/07/16 Stool Culture - Final, Complete 12/07/16 Stool Culture Result 1 (NEFTALI) - Final, Complete 12/07/16 Campylobacter Antigen Assay - Final, Complete 12/07/16 Campylobactor Result 1 - Final, Complete 12/07/16 Shiga Toxin Test - Final, Complete 12/12/16 AFB Specimen Processing Tissue - Final, Resulted 12/12/16 Acid Fast Bacilli Culture, Resulted Pending 12/12/16 Gram Stain - Final, Resulted 12/12/16 Fungal Culture, Resulted Pending 12/12/16 Fungal Culture Result 1, Resulted Pending 12/12/16 Urine Culture - Preliminary, Resulted 12/12/16 Urine Culture Result 1 (NEFTALI) - Preliminary, Resulted Physical Exam HEENT: Neck Supple W Full Motion Chest: Symmetric LUNGS: Other (decreased anteriorly; no crackles) Heart: S1S2, RRR, no thrills, no rubs, no murmurs, other (tele: SR/ST) Abdomen: Soft N/T Extremities: Other (anasarca) Neurology: other (sedated) Assessment Assessment 1. Septic shock with multiorgan failure. Presumed etiology of sepsis is PNA remains on vent; BP low to low normotensive 2. 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 ASHLEY per nephrology will follow peripherally please contact for further assistance FARIDA WRIGHT MD 12/14/16 2220: CARDIO Progress Notes Plan Plan Pt. seen and examined. Case discussed with Dr. Jones and SEED DISTRICT SALES MANAGER No acute events overnight. BP stable off all pressors. Fluid status, nearly +20 L since admission. Continued fluid removal through HD and hopefully he has recovery of pulmonary function Continue supportive care from CV perspective. Will follow peripherally. JOHN COVINGTON APRN Dec 14, 2016 10:26 FARIDA WRIGHT MD Dec 14, 2016 22:20
--- NOTE | 2016-12-14 10:42 | PDOC ---
PULMONARY PROGRESS NOTES Subjective on vent ,on sedation, Improving oxygenation with HD Vitals Vital Signs Date Time Temp Pulse Resp B/P Pulse Ox O2 Delivery O2 Flow Rate FiO2 12/14/16 10:00 83 25 86/54 99 Ventilator 12/14/16 08:00 98.4 98.4 12/14/16 04:00 4.0 Comments ros as mentioned as above discussed w rn, off sedation agitated. HEENT: Other (nc at perrl, orally intubated) Lungs: Other (Decrease bs) Cardiovascular: S1, S2 Abdomen: Soft, Non-tender, Other (no mass) Extremities: No Edema Skin: Warm Labs Laboratory Tests Test 12/12/16 17:21 12/12/16 17:55 12/13/16 00:15 12/13/16 07:45 Urine Collection Type Unknown Urine Color Yellow Urine Clarity Cloudy Urine pH 6.0 Urine Specific [place] 1.025 Urine Protein 100mg/dL (NEG-TRACE) Urine Glucose (UA) Negativemg/dL (NEG) Urine Ketones (Stick) Negativemg/dL (NEG) Urine Blood Moderate (NEG) Urine Nitrite Negative (NEG) Urine Bilirubin Negative (NEG) Urine Urobilinogen Dipstick 0.2mg/dL (0.2 mg/dL) Urine Leukocyte Esterase Small (NEG) Urine RBC 6-10/HPF (0-2) Urine WBC 5-10/HPF (0-4) Urine Amorphous Sediment Present/HPF Urine Bacteria Few/HPF (0-FEW) Urine Granular Casts Moderate/HPF Potassium Level 3.8mmol/L (3.5-5.1) 3.4mmol/L (3.5-5.1) 4.3mmol/L (3.5-5.1) Sodium Level 143mmol/L (136-145) Chloride Level 109mmol/L (98-107) Carbon Dioxide Level 25mmol/L (21-32) Anion Gap 9 (6-14) Blood Urea Nitrogen 47mg/dL (8-26) Creatinine 3.6mg/dL (0.7-1.3) Estimated GFR (Cockcroft-Gault) 21.9 Glucose Level 109mg/dL (70-99) Calcium Level 7.4mg/dL (8.5-10.1) Phosphorus Level 2.3mg/dL (2.6-4.7) Magnesium Level 2.3mg/dL (1.8-2.4) Creatine Kinase 866U/L (39-308) Albumin 1.1g/dL (3.4-5.0) Hepatitis B Surface Antigen Negative (Negative) Hepatitis B Surface Antibody Non reactive (.) Test 12/13/16 08:00 12/13/16 19:30 12/14/16 01:00 12/14/16 05:00 O2 Saturation 92% (92-99) Arterial Blood pH 7.43 (7.35-7.45) Arterial Blood pCO2 at Patient Temp 36mmHg (35-46) Arterial Blood pO2 at Patient Temp 63mmHg (75-108) Arterial Blood HCO3 24mmol/L (21-28) Arterial Blood Base Excess 0mmol/L (-3-3) FiO2 40 Potassium Level 3.9mmol/L (3.5-5.1) 3.6mmol/L (3.5-5.1) 4.1mmol/L (3.5-5.1) White Blood Count 17.6x10^3/uL (4.0-11.0) Red Blood Count 2.83x10^6/uL (4.30-5.70) Hemoglobin 8.4g/dL (13.0-17.5) Hematocrit 25.8% (39.0-53.0) Mean Corpuscular Volume 91fL (79-100) Mean Corpuscular Hemoglobin 30pg (25-35) Mean Corpuscular Hemoglobin Concent 32g/dL (31-37) Red Cell Distribution Width 14.4% (11.5-14.5) Platelet Count 325x10^3/uL (140-400) Neutrophils (%) (Auto) 84% (31-73) Lymphocytes (%) (Auto) 5% (24-48) Monocytes (%) (Auto) 10% (0-9) Eosinophils (%) (Auto) 1% (0-3) Basophils (%) (Auto) 0% (0-3) Neutrophils # (Auto) 14.8x10^3uL (1.8-7.7) Lymphocytes # (Auto) 0.9x10^3/uL (1.0-4.8) Monocytes # (Auto) 1.7x10^3/uL (0.0-1.1) Eosinophils # (Auto) 0.2x10^3/uL (0.0-0.7) Basophils # (Auto) 0.1x10^3/uL (0.0-0.2) Sodium Level 141mmol/L (136-145) Chloride Level 105mmol/L (98-107) Carbon Dioxide Level 27mmol/L (21-32) Anion Gap 9 (6-14) Blood Urea Nitrogen 27mg/dL (8-26) Creatinine 2.6mg/dL (0.7-1.3) Estimated GFR (Cockcroft-Gault) 31.9 Glucose Level 92mg/dL (70-99) Calcium Level 7.3mg/dL (8.5-10.1) Phosphorus Level 1.9mg/dL (2.6-4.7) Magnesium Level 1.8mg/dL (1.8-2.4) Creatine Kinase 487U/L (39-308) Albumin 1.2g/dL (3.4-5.0) Test 12/14/16 08:00 O2 Saturation 96% (92-99) Arterial Blood pH 7.48 (7.35-7.45) Arterial Blood pCO2 at Patient Temp 36mmHg (35-46) Arterial Blood pO2 at Patient Temp 80mmHg (75-108) Arterial Blood HCO3 26mmol/L (21-28) Arterial Blood Base Excess 3mmol/L (-3-3) FiO2 40 Laboratory Tests Test 12/13/16 19:30 12/14/16 01:00 12/14/16 05:00 12/14/16 08:00 Potassium Level 3.9mmol/L (3.5-5.1) 3.6mmol/L (3.5-5.1) 4.1mmol/L (3.5-5.1) White Blood Count 17.6x10^3/uL (4.0-11.0) Red Blood Count 2.83x10^6/uL (4.30-5.70) Hemoglobin 8.4g/dL (13.0-17.5) Hematocrit 25.8% (39.0-53.0) Mean Corpuscular Volume 91fL (79-100) Mean Corpuscular Hemoglobin 30pg (25-35) Mean Corpuscular Hemoglobin Concent 32g/dL (31-37) Red Cell Distribution Width 14.4% (11.5-14.5) Platelet Count 325x10^3/uL (140-400) Neutrophils (%) (Auto) 84% (31-73) Lymphocytes (%) (Auto) 5% (24-48) Monocytes (%) (Auto) 10% (0-9) Eosinophils (%) (Auto) 1% (0-3) Basophils (%) (Auto) 0% (0-3) Neutrophils # (Auto) 14.8x10^3uL (1.8-7.7) Lymphocytes # (Auto) 0.9x10^3/uL (1.0-4.8) Monocytes # (Auto) 1.7x10^3/uL (0.0-1.1) Eosinophils # (Auto) 0.2x10^3/uL (0.0-0.7) Basophils # (Auto) 0.1x10^3/uL (0.0-0.2) Sodium Level 141mmol/L (136-145) Chloride Level 105mmol/L (98-107) Carbon Dioxide Level 27mmol/L (21-32) Anion Gap 9 (6-14) Blood Urea Nitrogen 27mg/dL (8-26) Creatinine 2.6mg/dL (0.7-1.3) Estimated GFR (Cockcroft-Gault) 31.9 Glucose Level 92mg/dL (70-99) Calcium Level 7.3mg/dL (8.5-10.1) Phosphorus Level 1.9mg/dL (2.6-4.7) Magnesium Level 1.8mg/dL (1.8-2.4) Creatine Kinase 487U/L (39-308) Albumin 1.2g/dL (3.4-5.0) O2 Saturation 96% (92-99) Arterial Blood pH 7.48 (7.35-7.45) Arterial Blood pCO2 at Patient Temp 36mmHg (35-46) Arterial Blood pO2 at Patient Temp 80mmHg (75-108) Arterial Blood HCO3 26mmol/L (21-28) Arterial Blood Base Excess 3mmol/L (-3-3) FiO2 40 Medications Active Scripts Medications Dose Route/Sig Days Date Category Percocet 5-325 Mg Tablet (Oxycodone/Acetaminophen) 1 Each Tablet 1-2 Tab PO Q4HRS 05/25/16 Reported Ultram (Tramadol Hcl) 50 Mg Tablet 50 Mg PO Q6H PRN 05/22/16 Rx Robaxin (Methocarbamol) 500 Mg Tablet 500 Mg PO QID 05/22/16 Rx Comments cxr reviewed 12/14 persistent bilateral infiltrates c/w CHF/ mild improvement Impression . 1. Acute hypoxemic respiratory failure, multifactorial in etiology.(septic shock, CHF, Metabolic acidosis, Renal failure,Possible pneumonia) 2. Persistent bilateral infiltrates, suspect persistent CHF/ less likely Pneumonia 3. CMP (EF 30%)/ cath findings c/w CHF 4. Septic shock POA.off pressors 5. Acute kidney injury. 6. Smoker. 7. History of drug abuse. 8. Status post cardiopulmonary arrest. 9. Hypotension.off pressors 10.Metabolic acidosis, improving 11. s/ p cath the Right Atrial Pressure is 20 mmHg. The Right Ventricular Pressure is 50/30 mmHg. The Pulmonary Artery Pressure is 50/29 mmHg. The Pulmonary Catheter Wedge Pressure is 25 mmHg. LVEDP 30.This is c/w ongoing CHF Plan . 1. AC mode, improving oxygenation with HD 2. Wean sedation / CPAP trial once awake 3. Bronchodilator, 4. s/p Bronch , severe tracheitis, Negative cultures so far 5. ID recommendations 6. Continue abx 7. Pepcid and heparin for stress ulcer and DVT prophylaxis. 8. Urine for legionella and strep pneumonia antigen, neg. 9. Urine drug screen, pos.for cocaine 10.Follow Cardiology and nephrology recommendations. Cath 11. HD to continue d/w SUZIE Fuchs MD Dec 14, 2016 10:42
[2016-12-14] MEDS ORDERED: DIALYSIS PATIENT. MC PRN ×2 (11:00)
--- NOTE | 2016-12-14 12:17 | PDOC ---
PROGRESS NOTES Chief Complaint Chief Complaint Chief Complaint: - Weakness, dehydration - Cardiac arrest PEA (12/08); TTE EF of 30-35% - Acute respiratory failure, likely multifactorial; On mechanical Ventilation ( 12/08)- possible aspiration pneumonia. Possible ARDS vs pulmonary edema vs PNA - ASHLEY - Septic shock, multiorgan failure, Off pressor support - Cardiomyopathy - Metabolic acidosis - Polysubstance abuse - Elevated troponin - Hypocalcemia. History of Present Illness History of Present Illness 51 year old male seen in ICU. Sedated on vent, settings AC/Rate- 18/ Tidal Vol - 500/ 60% FiO2 with 7.0 PEEP/ O2 sat- 100%. Patient had heart cath 12/12 and will be initiating hemodialysis to improve fluid status. Vitals Vitals Vital Signs Date Time Temp Pulse Resp B/P Pulse Ox O2 Delivery O2 Flow Rate FiO2 12/14/16 11:29 18 12/14/16 11:01 91 Ventilator 12/14/16 10:00 83 86/54 12/14/16 08:00 98.4 98.4 12/14/16 04:00 4.0 Physical Exam Physical Exam Pupils reactive to light General: No acute distress, Other (Intubated/sedated on vent) Heart: Regular rate, Normal S1, Normal S2 Lungs: Other (Decrease bs; Rhonchi) Abdomen: Normal bowel sounds, Soft, No tenderness Extremities: No clubbing, No cyanosis Skin: No rashes, No significant lesion Labs LABS Laboratory Tests Test 12/13/16 19:30 12/14/16 01:00 12/14/16 05:00 12/14/16 08:00 Potassium Level 3.9mmol/L (3.5-5.1) 3.6mmol/L (3.5-5.1) 4.1mmol/L (3.5-5.1) White Blood Count 17.6x10^3/uL (4.0-11.0) Red Blood Count 2.83x10^6/uL (4.30-5.70) Hemoglobin 8.4g/dL (13.0-17.5) Hematocrit 25.8% (39.0-53.0) Mean Corpuscular Volume 91fL (79-100) Mean Corpuscular Hemoglobin 30pg (25-35) Mean Corpuscular Hemoglobin Concent 32g/dL (31-37) Red Cell Distribution Width 14.4% (11.5-14.5) Platelet Count 325x10^3/uL (140-400) Neutrophils (%) (Auto) 84% (31-73) Lymphocytes (%) (Auto) 5% (24-48) Monocytes (%) (Auto) 10% (0-9) Eosinophils (%) (Auto) 1% (0-3) Basophils (%) (Auto) 0% (0-3) Neutrophils # (Auto) 14.8x10^3uL (1.8-7.7) Lymphocytes # (Auto) 0.9x10^3/uL (1.0-4.8) Monocytes # (Auto) 1.7x10^3/uL (0.0-1.1) Eosinophils # (Auto) 0.2x10^3/uL (0.0-0.7) Basophils # (Auto) 0.1x10^3/uL (0.0-0.2) Sodium Level 141mmol/L (136-145) Chloride Level 105mmol/L (98-107) Carbon Dioxide Level 27mmol/L (21-32) Anion Gap 9 (6-14) Blood Urea Nitrogen 27mg/dL (8-26) Creatinine 2.6mg/dL (0.7-1.3) Estimated GFR (Cockcroft-Gault) 31.9 Glucose Level 92mg/dL (70-99) Calcium Level 7.3mg/dL (8.5-10.1) Phosphorus Level 1.9mg/dL (2.6-4.7) Magnesium Level 1.8mg/dL (1.8-2.4) Creatine Kinase 487U/L (39-308) Albumin 1.2g/dL (3.4-5.0) O2 Saturation 96% (92-99) Arterial Blood pH 7.48 (7.35-7.45) Arterial Blood pCO2 at Patient Temp 36mmHg (35-46) Arterial Blood pO2 at Patient Temp 80mmHg (75-108) Arterial Blood HCO3 26mmol/L (21-28) Arterial Blood Base Excess 3mmol/L (-3-3) FiO2 40 Review of Systems Review of Systems Unable to obtain Sedated on vent Assessment and Plan Assessmemt and Plan Assessment: - Weakness, dehydration - Cardiac arrest PEA (12/08); TTE EF of 30-35%, s/p left heart cath 12/12/16 - Acute respiratory failure, likely multifactorial; On mechanical Ventilation ( 12/08)- possible aspiration pneumonia. Possible ARDS vs pulmonary edema vs PNA - ASHLEY/ATN, initiating hemodialysis - Anemia - Septic shock, multiorgan failure, Off pressor support - Cardiomyopathy - Metabolic acidosis - Polysubstance abuse - Elevated troponin - Hypocalcemia. Plan - Per nephrology and pulmonology, hemodialysis to be initiated today - Hgb of 8.4 today, will continue to monitor anemia - Continue tube feedings - Antibiotic management per I.D. Urine culture negative to date, Bronch wash negative. - Continue monitoring in ICU - Pulmonology following, will wean off vent and trial CPAP when sedation weaned - Recheck labs in a.m. - LTAC eval ordered - Prognosis guarded - Appreciate subspecialty input Problems: Comment Review of Relevant I have reviewed the following items immanuel (where applicable) has been applied. Labs Laboratory Tests Test 12/12/16 17:21 12/12/16 17:55 12/13/16 00:15 12/13/16 07:45 Urine Collection Type Unknown Urine Color Yellow Urine Clarity Cloudy Urine pH 6.0 Urine Specific [place] 1.025 Urine Protein 100mg/dL (NEG-TRACE) Urine Glucose (UA) Negativemg/dL (NEG) Urine Ketones (Stick) Negativemg/dL (NEG) Urine Blood Moderate (NEG) Urine Nitrite Negative (NEG) Urine Bilirubin Negative (NEG) Urine Urobilinogen Dipstick 0.2mg/dL (0.2 mg/dL) Urine Leukocyte Esterase Small (NEG) Urine RBC 6-10/HPF (0-2) Urine WBC 5-10/HPF (0-4) Urine Amorphous Sediment Present/HPF Urine Bacteria Few/HPF (0-FEW) Urine Granular Casts Moderate/HPF Potassium Level 3.8mmol/L (3.5-5.1) 3.4mmol/L (3.5-5.1) 4.3mmol/L (3.5-5.1) Sodium Level 143mmol/L (136-145) Chloride Level 109mmol/L (98-107) Carbon Dioxide Level 25mmol/L (21-32) Anion Gap 9 (6-14) Blood Urea Nitrogen 47mg/dL (8-26) Creatinine 3.6mg/dL (0.7-1.3) Estimated GFR (Cockcroft-Gault) 21.9 Glucose Level 109mg/dL (70-99) Calcium Level 7.4mg/dL (8.5-10.1) Phosphorus Level 2.3mg/dL (2.6-4.7) Magnesium Level 2.3mg/dL (1.8-2.4) Creatine Kinase 866U/L (39-308) Albumin 1.1g/dL (3.4-5.0) Hepatitis B Surface Antigen Negative (Negative) Hepatitis B Surface Antibody Non reactive (.) Test 12/13/16 08:00 12/13/16 19:30 12/14/16 01:00 12/14/16 05:00 O2 Saturation 92% (92-99) Arterial Blood pH 7.43 (7.35-7.45) Arterial Blood pCO2 at Patient Temp 36mmHg (35-46) Arterial Blood pO2 at Patient Temp 63mmHg (75-108) Arterial Blood HCO3 24mmol/L (21-28) Arterial Blood Base Excess 0mmol/L (-3-3) FiO2 40 Potassium Level 3.9mmol/L (3.5-5.1) 3.6mmol/L (3.5-5.1) 4.1mmol/L (3.5-5.1) White Blood Count 17.6x10^3/uL (4.0-11.0) Red Blood Count 2.83x10^6/uL (4.30-5.70) Hemoglobin 8.4g/dL (13.0-17.5) Hematocrit 25.8% (39.0-53.0) Mean Corpuscular Volume 91fL (79-100) Mean Corpuscular Hemoglobin 30pg (25-35) Mean Corpuscular Hemoglobin Concent 32g/dL (31-37) Red Cell Distribution Width 14.4% (11.5-14.5) Platelet Count 325x10^3/uL (140-400) Neutrophils (%) (Auto) 84% (31-73) Lymphocytes (%) (Auto) 5% (24-48) Monocytes (%) (Auto) 10% (0-9) Eosinophils (%) (Auto) 1% (0-3) Basophils (%) (Auto) 0% (0-3) Neutrophils # (Auto) 14.8x10^3uL (1.8-7.7) Lymphocytes # (Auto) 0.9x10^3/uL (1.0-4.8) Monocytes # (Auto) 1.7x10^3/uL (0.0-1.1) Eosinophils # (Auto) 0.2x10^3/uL (0.0-0.7) Basophils # (Auto) 0.1x10^3/uL (0.0-0.2) Sodium Level 141mmol/L (136-145) Chloride Level 105mmol/L (98-107) Carbon Dioxide Level 27mmol/L (21-32) Anion Gap 9 (6-14) Blood Urea Nitrogen 27mg/dL (8-26) Creatinine 2.6mg/dL (0.7-1.3) Estimated GFR (Cockcroft-Gault) 31.9 Glucose Level 92mg/dL (70-99) Calcium Level 7.3mg/dL (8.5-10.1) Phosphorus Level 1.9mg/dL (2.6-4.7) Magnesium Level 1.8mg/dL (1.8-2.4) Creatine Kinase 487U/L (39-308) Albumin 1.2g/dL (3.4-5.0) Test 12/14/16 08:00 O2 Saturation 96% (92-99) Arterial Blood pH 7.48 (7.35-7.45) Arterial Blood pCO2 at Patient Temp 36mmHg (35-46) Arterial Blood pO2 at Patient Temp 80mmHg (75-108) Arterial Blood HCO3 26mmol/L (21-28) Arterial Blood Base Excess 3mmol/L (-3-3) FiO2 40 Laboratory Tests Test 12/13/16 19:30 12/14/16 01:00 12/14/16 05:00 12/14/16 08:00 Potassium Level 3.9mmol/L (3.5-5.1) 3.6mmol/L (3.5-5.1) 4.1mmol/L (3.5-5.1) White Blood Count 17.6x10^3/uL (4.0-11.0) Red Blood Count 2.83x10^6/uL (4.30-5.70) Hemoglobin 8.4g/dL (13.0-17.5) Hematocrit 25.8% (39.0-53.0) Mean Corpuscular Volume 91fL (79-100) Mean Corpuscular Hemoglobin 30pg (25-35) Mean Corpuscular Hemoglobin Concent 32g/dL (31-37) Red Cell Distribution Width 14.4% (11.5-14.5) Platelet Count 325x10^3/uL (140-400) Neutrophils (%) (Auto) 84% (31-73) Lymphocytes (%) (Auto) 5% (24-48) Monocytes (%) (Auto) 10% (0-9) Eosinophils (%) (Auto) 1% (0-3) Basophils (%) (Auto) 0% (0-3) Neutrophils # (Auto) 14.8x10^3uL (1.8-7.7) Lymphocytes # (Auto) 0.9x10^3/uL (1.0-4.8) Monocytes # (Auto) 1.7x10^3/uL (0.0-1.1) Eosinophils # (Auto) 0.2x10^3/uL (0.0-0.7) Basophils # (Auto) 0.1x10^3/uL (0.0-0.2) Sodium Level 141mmol/L (136-145) Chloride Level 105mmol/L (98-107) Carbon Dioxide Level 27mmol/L (21-32) Anion Gap 9 (6-14) Blood Urea Nitrogen 27mg/dL (8-26) Creatinine 2.6mg/dL (0.7-1.3) Estimated GFR (Cockcroft-Gault) 31.9 Glucose Level 92mg/dL (70-99) Calcium Level 7.3mg/dL (8.5-10.1) Phosphorus Level 1.9mg/dL (2.6-4.7) Magnesium Level 1.8mg/dL (1.8-2.4) Creatine Kinase 487U/L (39-308) Albumin 1.2g/dL (3.4-5.0) O2 Saturation 96% (92-99) Arterial Blood pH 7.48 (7.35-7.45) Arterial Blood pCO2 at Patient Temp 36mmHg (35-46) Arterial Blood pO2 at Patient Temp 80mmHg (75-108) Arterial Blood HCO3 26mmol/L (21-28) Arterial Blood Base Excess 3mmol/L (-3-3) FiO2 40 Microbiology 12/07/16 Blood Culture - Final, Complete NO GROWTH AFTER 5 DAYS 12/07/16 Stool Culture - Final, Complete 12/07/16 Stool Culture Result 1 (NEFTALI) - Final, Complete 12/07/16 Campylobacter Antigen Assay - Final, Complete 12/07/16 Campylobactor Result 1 - Final, Complete 12/07/16 Shiga Toxin Test - Final, Complete 12/12/16 AFB Specimen Processing Tissue - Final, Resulted 12/12/16 Acid Fast Bacilli Culture, Resulted Pending 12/12/16 Gram Stain - Final, Resulted 12/12/16 Fungal Culture, Resulted Pending 12/12/16 Fungal Culture Result 1, Resulted Pending 12/12/16 Urine Culture - Preliminary, Resulted 12/12/16 Urine Culture Result 1 (NEFTALI) - Preliminary, Resulted Medications Current Medications Ketorolac Tromethamine 30 mg 30 mg 1X ONCE IV Last administered on 12/07/16 14:34; Start 12/07/16 at 14:30; Stop 12/07/16 at 14:31; Status DC Sodium Chloride 1,000 ml @ 1,000 mls/hr 1X ONCE IV Last administered on 14:34; Start 12/07/16 at 14:30; Stop 12/07/16 at 15:29; Status DC Ceftriaxone Sodium 1 gm/ Sodium Chloride 50 ml @ 100 mls/hr Q24H IV ; Start at 15:30; Stop 12/08/16 at 15:30; Status DC Azithromycin 250 ml @ 250 mls/hr 1X ONCE IV Last administered on 12/07/16 15 :48; Start 12/07/16 at 15:15; Stop 12/07/16 at 16:14; Status DC Sodium Chloride 1,000 ml @ 1,000 mls/hr 1X ONCE IV Last administered on 16:09; Start 12/07/16 at 15:15; Stop 12/07/16 at 16:14; Status DC Ceftriaxone Sodium 50 ml @ 100 mls/hr 1X ONCE IV Last administered on 15:29; Start 12/07/16 at 15:15; Stop 12/07/16 at 15:44; Status DC Sodium Chloride (Iv Sodium Chloride 0.9% 1000ml Bag) 1,000 ml @ 150 mls/hr 1X ONCE IV Last administered on 12/07/16 18:10; Start 12/07/16 at 15:15; Stop 11/11 at 21:54; Status DC Famotidine (Pepcid) 20 mg 1X ONCE IVP Last administered on 12/07/16 15:48; Start 12/07/16 at 15:45; Stop 12/07/16 at 15:46; Status DC Ondansetron HCl 4 mg 4 mg 1X ONCE IV Last administered on 12/07/16 16:09; Start 12/07/16 at 16:15; Stop 12/07/16 at 16:16; Status DC Sodium Chloride (Iv Sodium Chloride 0.9% 1000ml Bag) 1,000 ml @ 150 mls/hr Q6H40M IV Last administered on 12/08/16 06:38; Start 12/07/16 at 16:30; Stop 12/08/16 at 14:21; Status DC Ondansetron HCl (Zofran) 4 mg PRN Q6HRS PRN IV NAUSEA/VOMITING; Start 12/07/16 at 16:30 Acetaminophen (Tylenol) 500 mg PRN Q6HRS PRN PO MILD PAIN / TEMP Last administered on 12/09/16 15:04; Start 12/07/16 at 16:30 Morphine Sulfate 2 mg PRN Q2HR PRN IV PAIN Last administered on 12/08/16 05:28 ; Start 12/07/16 at 16:30 Zolpidem Tartrate (Ambien) 5 mg PRN QHS PRN PO INSOMNIA Last administered on 01:06; Start 12/07/16 at 16:30; Stop 12/08/16 at 10:03; Status DC Methocarbamol (Robaxin) 500 mg QID PO Last administered on 12/07/16 21:19; Start 12/07/16 at 17:00; Stop 12/08/16 at 10:03; Status DC Oxycodone/ Acetaminophen (Percocet 5/325) 1 tab PRN Q4HRS PRN PO SEVERE PAIN; Start 12/07/16 at 16:30 Tramadol HCl (Ultram) 50 mg PRN Q6HRS PRN PO MODERATE PAIN Last administered on 12/07/16 17:11; Start 12/07/16 at 16:30 Nicotine (Nicoderm Cq 21mg) 1 patch PRN DAILY PRN TD SMOKING CESSATION; Start 12/07/16 at 16:30 Info (Do NOT chart on this placeholder) 1 each 1X ONCE MC ; Start 12/07/16 at 22:45; Stop 12/07/16 at 22:46; Status UNV Pneumococcal Polyvalent Vaccine (Do NOT chart on this placeholder) 1 each 1X ONCE MC ; Start 12/07/16 at 22:45; Stop 12/07/16 at 22:46; Status UNV Influenza Virus Vaccine Quadrival (Fluarix Quad [id number] Syringe) 0.5 ml ONCE ONCE VAX IM ; Start 12/08/16 at 09:00; Stop 12/08/16 at 09:01; Status DC Pneumococcal Polyvalent Vaccine (Pneumovax 23) 0.5 ml ONCE ONCE VAX IM ; Start 12/08/16 at 09:00; Stop 12/08/16 at 09:01; Status DC Labetalol HCl (Normodyne) 10 mg 1X ONCE IVP Last administered on 12/08/16 08: 56; Start 12/08/16 at 08:30; Stop 12/08/16 at 08:35; Status DC Alprazolam (Xanax) 0.5 mg 1X ONCE PO Last administered on 12/08/16 08:40; Start 12/08/16 at 08:45; Stop 12/08/16 at 08:46; Status DC Aspirin (Children'S Aspirin) 324 mg 1X ONCE PO Last administered on 12/08/16 13:44; Start 12/08/16 at 09:30; Stop 12/08/16 at 09:31; Status DC Aspirin (Jada Aspirin) 325 mg DAILYWBKFT PO ; Start 12/09/16 at 08:00; Stop at 08:00; Status DC Heparin Sodium (Porcine) 4000 unit 4,000 unit 1X ONCE IV ; Start 12/08/16 at 09 :30; Stop 12/08/16 at 14:21; Status DC Midazolam HCl 100 ml @ As Directed STK-MED ONCE IV ; Start 12/08/16 at 09:52; Stop 12/08/16 at 09:53; Status DC Propofol (Diprivan) 100 ml @ 0 mls/hr CONT PRN IV SEE I/O RECORD Last administered on 12/08/16 23:49; Start 12/08/16 at 10:00 Famotidine (Pepcid) 20 mg QHS IVP Last administered on 12/13/16 20:50; Start 12/08/16 at 21:00 Heparin Sodium (Porcine) 5000 unit 5,000 unit Q8HRS SQ ; Start 12/08/16 at 14:00 ; Stop 12/08/16 at 14:00; Status DC Norepinephrine Bitartrate 8 mg/ Sodium Chloride 258 ml @ 1.93 mls/hr CONT PRN IV SEE I/O RECORD; Start 12/08/16 at 10:15; Status Cancel Dopamine HCl/ Dextrose 250 ml @ As Directed STK-MED ONCE IV ; Start 12/08/16 at 10:07; Stop 12/08/16 at 10:08; Status DC Norepinephrine Bitartrate 8 mg/ Sodium Chloride 258 ml @ 0 mls/hr CONT PRN IV SEE I/O RECORD Last administered on 12/09/16 08:46; Start 12/08/16 at 10:15; Stop 12/09/16 at 11:47; Status DC Dopamine HCl/ Dextrose 250 ml @ 10.084 mls/ hr CONT PRN IV SEE I/O RECORD Last administered on 12/08/16 10:00; Start 12/08/16 at 10:15 Sodium Bicarbonate/ Sodium Chloride (Iv Sodium Chloride 0.45%) 1,050 ml @ 200 mls/hr Q5H15M IV Last administered on 12/09/16 05:11; Start 12/08/16 at 10:30 ; Stop 12/09/16 at 08:28; Status DC Phenylephrine HCl 1 mg STK-MED ONCE IV ; Start 12/08/16 at 10:25; Stop 12/08/16 at 10:26; Status DC Aspirin 300 mg 300 mg 1X ONCE TX ; Start 12/08/16 at 10:45; Stop 12/08/16 at 10 :46; Status DC Sodium Chloride 1,000 ml @ 1,000 mls/hr 1X ONCE IV Last administered on 10:00; Start 12/08/16 at 11:45; Stop 12/08/16 at 12:44; Status DC Sodium Chloride (Iv Sodium Chloride 0.9% 1000ml Bag) 1,000 ml @ 1,000 mls/hr 1X ONCE IV Last administered on 12/08/16 10:00; Start 12/08/16 at 11:45; Stop 12/08/16 at 12:44; Status DC Albuterol/ Ipratropium (Duoneb) 3 ml RTQID NEB Last administered on 12/08/16 19:44; Start 12/08/16 at 12:30; Stop 12/09/16 at 05:17; Status DC Budesonide 0.5 mg 0.5 mg RTBID NEB Last administered on 12/14/16 08:03; Start 12/08/16 at 12:30 Sodium Chloride 1,000 ml @ 1,000 mls/hr 1X ONCE IV Last administered on 11:00; Start 12/08/16 at 12:15; Stop 12/08/16 at 13:14; Status DC Sodium Chloride 1,000 ml @ 1,000 mls/hr 1X ONCE IV Last administered on 11:00; Start 12/08/16 at 12:15; Stop 12/08/16 at 13:14; Status DC Heparin Sodium/ Dextrose 500 ml @ 0 mls/hr CONT PRN IV SEE I/O RECORD Last administered on 12/09/16 13:11; Start 12/08/16 at 12:45; Stop 12/13/16 at 13:10 ; Status DC Heparin Sodium (Porcine) 1,350 unit PRN Q6HRS PRN IV FOR UFH LEVEL LESS THAN 0.2 Last administered on 12/09/16 05:47; Start 12/08/16 at 12:45; Stop at 13:10; Status DC Etomidate (Amidate) 20 mg STK-MED ONCE IV ; Start 12/08/16 at 13:00; Stop at 13:01; Status DC Succinylcholine Chloride 200 mg 200 mg STK-MED ONCE .ROUTE ; Start 12/08/16 at 13:00; Stop 12/08/16 at 13:01; Status DC Piperacillin Sod/ Tazobactam Sod 3.375 gm/Sodium Chloride 50 ml @ 100 mls/hr Q6HRS IV ; Start 12/08/16 at 18:00; Stop 12/08/16 at 18:00; Status DC Vancomycin HCl 1 gm/Sodium Chloride 250 ml @ 250 mls/hr 1X ONCE IV Last administered on 12/08/16 14:21; Start 12/08/16 at 14:00; Stop 12/08/16 at 14:59 ; Status DC Piperacillin Sod/ Tazobactam Sod 2.25 gm/Sodium Chloride 50 ml @ 100 mls/hr Q6HRS IV Last administered on 12/09/16 06:17; Start 12/08/16 at 14:00; Stop at 08:25; Status DC Midazolam HCl 100 ml @ 0 mls/hr CONT PRN IV SEE I/O RECORD Last administered on 12/13/16 23:55; Start 12/08/16 at 10:30 Fentanyl Citrate (Fentanyl 600 Mcg/30 ml COW TESTER) 30 ml @ 0 mls/hr CONT PRN IV PROTOCOL Last administered on 12/14/16 11:29; Start 12/09/16 at 05:15 Fentanyl Citrate (Fentanyl 2ml Vial) 25 mcg PRN Q1HR PRN IV COMM; Start at 05:15 Fentanyl Citrate (Fentanyl 2ml Vial) 50 mcg PRN Q1HR PRN IV COMM; Start at 05:15 Ipratropium [place] (Atrovent) 0.5 mg RTQID NEB Last administered on 12/14/16 11:01; Start 12/09/16 at 08:00 Aspirin (Children'S Aspirin) 81 mg DAILYWBKFT PO Last administered on 08:38; Start 12/09/16 at 08:00 Chlorhexidine Gluconate 15 ml 15 ml BID MM Last administered on 12/14/16 08:38 ; Start 12/09/16 at 09:00 Sodium Bicarbonate 150 meq/Dextrose 1,150 ml @ 100 mls/hr [id number] IV Last administered on 12/10/16 09:34; Start 12/09/16 at 09:00; Stop 12/10/16 at 12:14 ; Status DC Piperacillin Sod/ Tazobactam Sod 3.375 gm/Sodium Chloride 50 ml @ 100 mls/hr Q6HRS IV Last administered on 12/11/16 06:01; Start 12/09/16 at 12:00; Stop at 07:47; Status DC Norepinephrine Bitartrate 16 mg/ Sodium Chloride 266 ml @ 0.99 mls/hr CONT PRN IV SEE I/O RECORD Last administered on 12/09/16 20:36; Start 12/09/16 at 12 :00 Doxycycline Hyclate/Dextrose 100 ml @ 50 mls/hr Q12HR IV Last administered on 12/13/16 20:50; Start 12/09/16 at 13:00; Stop 12/14/16 at 08:34; Status DC Atropine Sulfate 0.5 mg STK-MED ONCE .ROUTE ; Start 12/08/16 at 10:30; Stop at 13:18; Status DC Epinephrine HCl 3 mg STK-MED ONCE .ROUTE ; Start 12/08/16 at 10:30; Stop at 13:18; Status DC Calcium Gluconate 1000 mg 1,000 mg 1X ONCE IVP ; Start 12/10/16 at 10:00; Stop 12/10/16 at 10:01; Status UNV Magnesium Sulfate/ Dextrose 50 ml @ 25 mls/hr 1X ONCE IV Last administered on 12/10/16 11:40; Start 12/10/16 at 12:00; Stop 12/10/16 at 13:59; Status DC Calcium Gluconate 1000 mg/Sodium Chloride 110 ml @ 220 mls/hr 1X ONCE IV Last administered on 12/10/16 11:36; Start 12/10/16 at 12:00; Stop 12/10/16 at 12:29; Status DC Magnesium Sulfate/ Dextrose 50 ml @ 25 mls/hr PRN DAILY PRN IV for Mag < 1.7 on am labs; Start 12/10/16 at 12:15; Stop 12/13/16 at 09:57; Status DC Amino Acids/ Glycerin/ Electrolytes 1,000 ml @ 80 mls/hr [id number] IV ; Start at 12:30; Stop 12/10/16 at 12:30; Status DC Albumin Human (Albuminar) 100 ml @ 100 mls/hr TID IV ; Start 12/10/16 at 14:00 ; Stop 12/10/16 at 14:00; Status DC Calcium Gluconate 2000 mg 2,000 mg TID IVP ; Start 12/10/16 at 14:00; Stop 12/10 at 14:00; Status DC Piperacillin Sod/ Tazobactam Sod 2.25 gm/Sodium Chloride 50 ml @ 100 mls/hr Q6HRS IV Last administered on 12/14/16 12:00; Start 12/11/16 at 12:00 Linezolid (Zyvox Premix) 300 ml @ 300 mls/hr Q12HR IV Last administered on 08:38; Start 12/11/16 at 09:00 Info 1 each 1 each PRN DAILY PRN MC SEE COMMENTS Last administered on 08:21; Start 12/11/16 at 08:15; Stop 12/13/16 at 13:13; Status DC Potassium Phosphate/Sodium Chloride (Potassium Phosphate/Iv Sodium Chloride 0.9 % 100ml) 104.5333 ml @ 52.267 m... Q2H IV Last administered on 12/11/16 17:22 ; Start 12/11/16 at 09:00; Stop 12/11/16 at 14:59; Status DC Furosemide 20 mg 20 mg 1X ONCE IVP Last administered on 12/11/16 11:10; Start 12/11/16 at 10:00; Stop 12/11/16 at 10:03; Status DC Dobutamine HCl/ Dextrose 250 ml @ 0 mls/hr CONT PRN IV SEE I/O RECORD Last administered on 12/11/16 15:05; Start 12/11/16 at 14:45 Magnesium Sulfate/ Dextrose 50 ml @ 25 mls/hr PRN DAILY PRN IV for Mag < 1.7 on am labs; Start 12/12/16 at 08:45; Stop 12/13/16 at 09:57; Status DC Potassium Chloride 50 ml @ 50 mls/hr PRN Q6HRS PRN IV For K < 3.7; Start at 08:45; Stop 12/13/16 at 09:57; Status DC Potassium Chloride (KCl Premix 20meq) 50 ml @ 50 mls/hr PRN Q2HR PRN IV total of 40mEq for K < 3.5; Start 12/12/16 at 08:45; Stop 12/13/16 at 09:57; Status DC Acetylcysteine 1200 mg 1,200 mg BID PO Last administered on 12/13/16 20:50; Start 12/12/16 at 09:00; Stop 12/14/16 at 08:17; Status DC Potassium Chloride (KCl Premix 20meq) 50 ml @ 50 mls/hr Q1H IV Last administered on 12/12/16 13:16; Start 12/12/16 at 09:00; Stop 12/12/16 at 10:59 ; Status DC Lidocaine/Sodium Bicarbonate 20 ml 20 ml STK-MED ONCE IJ ; Start 12/12/16 at 12: 13; Stop 12/12/16 at 12:14; Status DC Heparin Sodium/ Sodium Chloride 500 ml @ As Directed STK-MED ONCE .ROUTE ; Start 12/12/16 at 12:14; Stop 12/12/16 at 12:15; Status DC Lidocaine/Sodium Bicarbonate (Buffered Lidocaine 1%) 3 ml 1X ONCE IJ Last administered on 12/12/16 13:08; Start 12/12/16 at 12:15; Stop 12/12/16 at 12:17 ; Status DC Heparin Sodium (Porcine) 2,500 unit 1X ONCE INT CAT Last administered on 13:08; Start 12/12/16 at 12:15; Stop 12/12/16 at 12:17; Status DC Heparin Sodium/ Sodium Chloride 60 unit 60 unit 1X ONCE IV Last administered on 12/12/16 12:15; Start 12/12/16 at 12:15; Stop 12/12/16 at 12:17; Status DC Heparin Sodium/ Sodium Chloride 1,500 ml @ As Directed STK-MED ONCE .ROUTE ; Start 12/12/16 at 15:03; Stop 12/12/16 at 15:04; Status DC Lidocaine HCl 20 ml STK-MED ONCE .ROUTE ; Start 12/12/16 at 15:03; Stop at 15:04; Status DC Iodixanol (Visipaque 320) 100 ml STK-MED ONCE .ROUTE ; Start 12/12/16 at 15:04; Stop 12/12/16 at 15:05; Status DC Heparin Sodium/ Sodium Chloride 1,000 unit 1X ONCE IART Last administered on 15:41; Start 12/12/16 at 15:30; Stop 12/12/16 at 15:32; Status DC Iodixanol (Visipaque 320) 100 ml 1X ONCE IART Last administered on 12/12/16 15:41; Start 12/12/16 at 15:30; Stop 12/12/16 at 15:32; Status DC Lidocaine HCl 4 ml 4 ml 1X ONCE IJ Last administered on 12/12/16 15:41; Start 12/12/16 at 15:30; Stop 12/12/16 at 15:32; Status DC Potassium Chloride 50 ml @ 50 mls/hr 1X ONCE IV Last administered on 04:13; Start 12/13/16 at 04:15; Stop 12/13/16 at 05:14; Status DC Potassium Chloride 50 ml @ 50 mls/hr 1X ONCE IV Last administered on 03:13; Start 12/13/16 at 03:15; Stop 12/13/16 at 04:14; Status DC Potassium Chloride 50 ml @ 50 mls/hr Q1H IV ; Start 12/13/16 at 09:00; Stop at 09:00; Status DC Furosemide 100 mg/ Sodium Chloride 100 ml @ 0 mls/hr CONT PRN IV SEE I/O RECORD Last administered on 12/13/16 11:43; Start 12/13/16 at 10:00; Stop 12/14 at 08:17; Status DC Magnesium Sulfate/ Dextrose 50 ml @ 25 mls/hr PRN DAILY PRN IV for Mag < 1.7 on am labs; Start 12/13/16 at 10:00 Potassium Chloride 50 ml @ 50 mls/hr PRN Q6HRS PRN IV For K < 3.7; Start at 10:00 Potassium Chloride 50 ml @ 50 mls/hr PRN Q2HR PRN IV total of 40mEq for K < 3.5; Start 12/13/16 at 10:00 Potassium Phosphate 40 mmol/ Sodium Chloride 113.3333 ml @ 52.267 m... PRN 1X PRN IV SEE COMMENTS; Start 12/13/16 at 10:00; Stop 12/13/16 at 23:59; Status DC Sodium Chloride 1,000 ml @ 1,000 mls/hr Q1H PRN IV hypotension; Start 12/13/16 at 14:51; Stop 12/13/16 at 20:50; Status DC Sodium Chloride (Iv Sodium Chloride 0.9% 1000ml Bag) 1,000 ml @ 400 mls/hr Q2H30M PRN IV PATENCY; Start 12/13/16 at 14:51; Stop 12/14/16 at 02:50; Status DC Info (PHARMACY MONITORING -- do not chart) 1 each PRN DAILY PRN MC SEE COMMENTS ; Start 12/13/16 at 15:00; Status UNV Info 1 each 1 each PRN DAILY PRN MC SEE COMMENTS; Start 12/13/16 at 15:00 Sodium Phosphate 0.4 mmol/Dextrose 1 ml @ 50 mls/hr BID IV ; Start 12/14/16 at 09:00; Status UNV Albumin Human (Albuminar) 100 ml @ 100 mls/hr TID IV Last administered on 12/14 08:39; Start 12/14/16 at 09:00; Stop 12/15/16 at 21:59 Darbepoetin Koffi 60 mcg 60 mcg [id number] SQ ; Start 12/14/16 at 21:00 Sodium Phosphate/ Dextrose 113.3333 ml @ 28.333 m... Q4H IV Last administered on 12/14/16 09:21; Start 12/14/16 at 09:00; Stop 12/14/16 at 16:59 Info (PHARMACY MONITORING -- do not chart) 1 each PRN DAILY PRN MC SEE COMMENTS ; Start 12/14/16 at 11:00; Status UNV Info (PHARMACY MONITORING -- do not chart) 1 each PRN DAILY PRN MC SEE COMMENTS ; Start 12/14/16 at 11:00; Status UNV Active Scripts Active Ultram (Tramadol Hcl) 50 Mg Tablet 50 Mg PO Q6H PRN Robaxin (Methocarbamol) 500 Mg Tablet 500 Mg PO QID Reported Percocet 5-325 Mg Tablet (Oxycodone/Acetaminophen) 1 Each Tablet 1-2 Tab PO Q4HRS Vitals/I & O Vital Sign - Last 24 Hours 12/13/16 12/13/16 12/13/16 12/13/16 13:00 13:11 14:00 15:00 Pulse 80 80 86 Resp 26 25 29 B/P 89/63 87/63 95/63 Pulse Ox 100 100 100 100 O2 Delivery Ventilator Ventilator Ventilator Ventilator 12/13/16 12/13/16 12/13/16 12/13/16 15:27 16:00 16:00 16:00 Temp 98.1 98.1 Pulse 84 Resp 30 B/P 100/64 Pulse Ox 100 95 O2 Delivery Ventilator Mechanical Ventilator Ventilator 12/13/16 12/13/16 12/13/16 12/13/16 16:36 17:00 17:06 17:16 Pulse 84 Resp 24 27 B/P 101/74 Pulse Ox 100 100 100 100 O2 Delivery Ventilator Ventilator Ventilator Ventilator 12/13/16 12/13/16 12/13/16 12/13/16 18:00 19:00 19:22 20:00 Pulse 86 90 Resp 30 29 B/P 113/77 112/62 Pulse Ox 93 90 100 O2 Delivery Ventilator Ventilator Ventilator Mechanical Ventilator O2 Flow Rate 4.0 12/13/16 12/13/16 12/13/16 12/13/16 20:00 21:00 21:15 22:00 Temp 97.9 97.9 Pulse 100 80 82 Resp 38 30 30 B/P 121/91 109/76 94/62 Pulse Ox 93 99 100 98 O2 Delivery Ventilator Ventilator Ventilator Ventilator 12/13/16 12/13/16 12/14/16 12/14/16 23:00 23:26 00:00 00:00 Temp 97.4 97.4 Pulse 80 81 Resp 25 22 B/P 104/69 97/67 Pulse Ox 98 100 98 O2 Delivery Ventilator Ventilator Ventilator Mechanical Ventilator O2 Flow Rate 4.0 12/14/16 12/14/16 12/14/16 12/14/16 01:00 01:10 01:49 02:00 Pulse 81 81 Resp 22 23 22 B/P 97/66 87/57 Pulse Ox 99 99 99 99 O2 Delivery Ventilator Ventilator Ventilator Ventilator 12/14/16 12/14/16 12/14/1617 03:00 03:23 04:00 04:00 Temp 97.1 97.1 Pulse 83 81 Resp 24 22 B/P 91/65 97/70 Pulse Ox 100 99 100 O2 Delivery Ventilator Ventilator Mechanical Ventilator Ventilator O2 Flow Rate 4.0 12/14/16 12/14/16 12/14/16 12/14/16 05:00 05:30 06:00 07:00 Pulse 81 81 82 Resp 22 24 24 B/P 95/64 93/63 92/63 Pulse Ox 100 100 99 98 O2 Delivery Ventilator Ventilator Ventilator Ventilator 12/14/16 12/14/16 12/14/16 12/14/16 08:00 08:00 08:03 08:08 Temp 98.4 98.4 Pulse 84 Resp 25 B/P 93/62 Pulse Ox 99 98 98 O2 Delivery Mechanical Ventilator Ventilator Ventilator Ventilator 12/14/16 12/14/16 12/14/16 12/14/16 09:00 10:00 11:01 11:29 Pulse 82 83 Resp 24 25 18 B/P 105/74 86/54 Pulse Ox 98 99 91 O2 Delivery Ventilator Ventilator Ventilator Intake and Output 12/13/16 12/13/16 12/14/16 15:00 23:00 07:00 Intake Total 25 ml 85 ml 3558 ml Output Total 535 ml 270 ml 672 ml Balance -510 ml -185 ml 2886 ml MAGNO CHAPARRO III DO Dec 14, 2016 12:17
[2016-12-14] MEDS ORDERED: ALBUMIN HUMAN 25% 200 ML IV PRN (13:30)
[2016-12-14] MEDS: MIDAZOLAM PREMIX 100 ML IV PRN ×2 (14:01→21:05)
[2016-12-14] MEDS: FAMOTIDINE 20 MG/2 ML VIAL IVP SCH (21:05)
[2016-12-14] MEDS: DARBEPOETIN ALFA 60 MCG/0.3 ML DISP.SYRIN. SQ SCH (21:07)
[2016-12-15] VITALS (24 sets, daily range): BP systolic 11–124; BP diastolic 59–80
[2016-12-15] MEDS: PIPERACILLIN/TAZOBACTAM 2.25 GM in IV NORMAL SALINE 50ML 50 ML IV SCH ×3 (05:52→17:36)
[2016-12-15 06:07] LABS: BASO # 0.1 x10^3/uL (0.0-0.2); BASO % 0 % (0-3); EOS % 1 % (0-3); HEMATOCRIT 22.5 % (39.0-53.0); HEMOGLOBIN 7.5 g/dL (13.0-17.5); LYMPH % 7 % (24-48); MEAN CORPUSCULAR HEMOGLOBIN 30 pg (25-35); MEAN CORPUSCULAR HGB CONC 33 g/dL (31-37); MEAN CORPUSCULAR VOLUME 91 fL (79-100); MONO % 13 % (0-9); NEUT % 79 % (31-73); PLATELET COUNT 324 x10^3/uL (140-400); RED BLOOD COUNT 2.48 x10^6/uL (4.30-5.70); RED CELL DISTRIBUTION WIDTH 14.3 % (11.5-14.5); WHITE BLOOD COUNT 15.2 x10^3/uL (4.0-11.0)
[2016-12-15] MEDS: MIDAZOLAM PREMIX 100 ML IV PRN ×2 (06:12→17:36)
[2016-12-15] MEDS: FENTANYL STANDARD PCA 30 ML IV PRN ×2 (06:18→20:13)
[2016-12-15] MEDS ORDERED: IV NORMAL SALINE 1000ML BAG 1,000 ML IV PRN ×2 (06:32)
[2016-12-15 06:42] LABS: CALCIUM 7.6 mg/dL (8.5-10.1); CREATININE 2.2 mg/dL (0.7-1.3); GFR 38.7; MAGNESIUM 1.8 mg/dL (1.8-2.4); PHOSPHORUS 3.7 mg/dL (2.6-4.7); POTASSIUM 3.9 mmol/L (3.5-5.1)
[2016-12-15] MEDS ORDERED: DIALYSIS PATIENT. MC PRN (06:45)
[2016-12-15] MEDS ORDERED: ALBUMIN HUMAN 25% 200 ML IV PRN (06:45)
--- NOTE | 2016-12-15 06:59 | PDOC ---
Infectious Disease Note Subjective Subjective Sedated. ROS ROS Unobtainable Vital Sign Vital Signs Vital Signs Date Time Temp Pulse Resp B/P Pulse Ox O2 Delivery O2 Flow Rate FiO2 12/15/16 06:00 81 45 101/63 99 Ventilator 12/15/16 04:00 97.9 97.9 Physical Exam PHYSICAL EXAM GENERAL: Intubated and sedated HEENT: Pupils small and equal. ETT. OGT LUNGS: Clear. vent. HEART: S1S2, no gallop, no murmur. ABD: Soft, BS present : Garcia EXT: generalized 1 to 2 plus. 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 (12/09). clean. RIJ HD cath clean Peripheral IV Labs Lab Laboratory Tests Test 12/14/16 08:00 12/14/16 17:50 12/14/16 23:48 12/15/16 00:10 O2 Saturation 96% (92-99) Arterial Blood pH 7.48 (7.35-7.45) Arterial Blood pCO2 at Patient Temp 36mmHg (35-46) Arterial Blood pO2 at Patient Temp 80mmHg (75-108) Arterial Blood HCO3 26mmol/L (21-28) Arterial Blood Base Excess 3mmol/L (-3-3) FiO2 40 Potassium Level 3.8mmol/L (3.5-5.1) 3.6mmol/L (3.5-5.1) Glucose (Fingerstick) 91mg/dL (70-99) Test 12/15/16 06:00 White Blood Count 15.2x10^3/uL (4.0-11.0) Red Blood Count 2.48x10^6/uL (4.30-5.70) Hemoglobin 7.5g/dL (13.0-17.5) Hematocrit 22.5% (39.0-53.0) Mean Corpuscular Volume 91fL (79-100) Mean Corpuscular Hemoglobin 30pg (25-35) Mean Corpuscular Hemoglobin Concent 33g/dL (31-37) Red Cell Distribution Width 14.3% (11.5-14.5) Platelet Count 324x10^3/uL (140-400) Neutrophils (%) (Auto) 79% (31-73) Lymphocytes (%) (Auto) 7% (24-48) Monocytes (%) (Auto) 13% (0-9) Eosinophils (%) (Auto) 1% (0-3) Basophils (%) (Auto) 0% (0-3) Neutrophils # (Auto) 12.0x10^3uL (1.8-7.7) Lymphocytes # (Auto) 1.0x10^3/uL (1.0-4.8) Monocytes # (Auto) 1.9x10^3/uL (0.0-1.1) Eosinophils # (Auto) 0.2x10^3/uL (0.0-0.7) Basophils # (Auto) 0.1x10^3/uL (0.0-0.2) Sodium Level 144mmol/L (136-145) Potassium Level 3.9mmol/L (3.5-5.1) Chloride Level 106mmol/L (98-107) Carbon Dioxide Level 27mmol/L (21-32) Anion Gap 11 (6-14) Blood Urea Nitrogen 20mg/dL (8-26) Creatinine 2.2mg/dL (0.7-1.3) Estimated GFR (Cockcroft-Gault) 38.7 Glucose Level 94mg/dL (70-99) Calcium Level 7.6mg/dL (8.5-10.1) Phosphorus Level 3.7mg/dL (2.6-4.7) Magnesium Level 1.8mg/dL (1.8-2.4) Creatine Kinase 262U/L (39-308) Albumin 2.0g/dL (3.4-5.0) Objective Assessment Sepsis with lactic acidosis. POA - off Pressors Anemia Fever - curve better Leukocytosis - better Pneumonia - S/p Bronch 12/12 - GPC on gram stain. Cult neg so far -Influenza screen neg -Strep antigen & legionella Ag neg Acute encephalopathy Acute respiratory failure s/p intubation s/p PEA cardiopulmonary arrest - S/p Cath 12/12 -TTE EF 30-35%. -No veg noted Hypotension on vasopressor support x 2. Now off ASHLEY - Renal following - worse Polysubstance abuse Diarrhea. c. diff neg. stool cx neg Plan Plan of Care Cont Zosyn/Zyvox taper soon F/u bronch results HD today One time dose vanc 12/08 Rocephin and azithromycin 12/07 Monitor labs/temp Supportive care Critically ill still LILIANA SEVERINO MD Dec 15, 2016 06:59
[2016-12-15] MEDS: BUDESONIDE 0.5 MG/2 ML NEBU NEB SCH ×2 (08:04→20:35)
[2016-12-15] MEDS: IPRATROPIUM BROMIDE 0.5 MG/2.5 ML NEBU. NEB SCH ×4 (08:04→20:35)
--- NOTE | 2016-12-15 08:56 | RAD ---
Indication shortness of air. A single view of the chest was obtained and is compared to an exam one day earlier. Right PICC line and right-sided dialysis catheter are noted. Nasogastric tube has its tip beyond the proximal body of the stomach. Endotracheal tube is appropriately positioned above the corey. Heart size is unchanged. Pulmonary infiltrates persist and appear worse. Findings may reflect worsening congestive heart failure or pneumonia. Additional volume loss is present in the left lower lobe similar to slightly worse compatible with atelectasis and pleural fluid. IMPRESSION: Appropriately positioned support tubes and catheters. Worsening pulmonary infiltrates. Additional volume loss in the left lower lobe compatible with pleural fluid and atelectasis is noted similar to slightly worse
[2016-12-15 09:01] LABS: HCO3 ABG 26 mmol/L (21-28); PCO2 ABG 37 mmHg (35-46); PH ABG 7.47 (7.35-7.45); PO2 ABG 73 mmHg (75-108); SAT O2 ABG 94 % (92-99)
[2016-12-15] MEDS: ASPIRIN 81 MG TAB.CHEW PO SCH (09:06)
--- NOTE | 2016-12-15 09:06 | PDOC ---
Dialysis Progress Note Dialysis Note Dialysis Note Seen on Hemodialysis, tolerating treatment Okay Vitals on Hemodialysis: 102/62 77 General Appearance: Sedated and intubated Neck: No JVD Min JVP Chest: CTA Joshua Heart: S1 S2 Abdomen - Soft NTND Extremities - + Edema ATN/ ARF: Dialysis as below F 180 NR 3.0 Hrs 4 K 2.5 Ca 140 Na 35 HC03 Qb 350 + Qd 500+ Heparin 0 Units Uf 3-4 Kgs or to dry weight as tolerated May give 25-50 gms of 25% Albumin if needed to maintain Hemodynamic stability Treatment plan reviewed and discussed with system support technician Vitals Vital Signs Vital Signs Date Time Temp Pulse Resp B/P Pulse Ox O2 Delivery O2 Flow Rate FiO2 12/15/16 08:17 98 Ventilator 12/15/16 08:00 98.1 76 26 105/65 98.1 12/14/16 04:00 4.0 Labs Last Labs Laboratory Tests Test 12/13/16 19:30 12/14/16 01:00 12/14/16 05:00 12/14/16 08:00 Potassium Level 3.9mmol/L (3.5-5.1) 3.6mmol/L (3.5-5.1) 4.1mmol/L (3.5-5.1) White Blood Count 17.6x10^3/uL (4.0-11.0) Red Blood Count 2.83x10^6/uL (4.30-5.70) Hemoglobin 8.4g/dL (13.0-17.5) Hematocrit 25.8% (39.0-53.0) Mean Corpuscular Volume 91fL (79-100) Mean Corpuscular Hemoglobin 30pg (25-35) Mean Corpuscular Hemoglobin Concent 32g/dL (31-37) Red Cell Distribution Width 14.4% (11.5-14.5) Platelet Count 325x10^3/uL (140-400) Neutrophils (%) (Auto) 84% (31-73) Lymphocytes (%) (Auto) 5% (24-48) Monocytes (%) (Auto) 10% (0-9) Eosinophils (%) (Auto) 1% (0-3) Basophils (%) (Auto) 0% (0-3) Neutrophils # (Auto) 14.8x10^3uL (1.8-7.7) Lymphocytes # (Auto) 0.9x10^3/uL (1.0-4.8) Monocytes # (Auto) 1.7x10^3/uL (0.0-1.1) Eosinophils # (Auto) 0.2x10^3/uL (0.0-0.7) Basophils # (Auto) 0.1x10^3/uL (0.0-0.2) Sodium Level 141mmol/L (136-145) Chloride Level 105mmol/L (98-107) Carbon Dioxide Level 27mmol/L (21-32) Anion Gap 9 (6-14) Blood Urea Nitrogen 27mg/dL (8-26) Creatinine 2.6mg/dL (0.7-1.3) Estimated GFR (Cockcroft-Gault) 31.9 Glucose Level 92mg/dL (70-99) Calcium Level 7.3mg/dL (8.5-10.1) Phosphorus Level 1.9mg/dL (2.6-4.7) Magnesium Level 1.8mg/dL (1.8-2.4) Creatine Kinase 487U/L (39-308) Albumin 1.2g/dL (3.4-5.0) O2 Saturation 96% (92-99) Arterial Blood pH 7.48 (7.35-7.45) Arterial Blood pCO2 at Patient Temp 36mmHg (35-46) Arterial Blood pO2 at Patient Temp 80mmHg (75-108) Arterial Blood HCO3 26mmol/L (21-28) Arterial Blood Base Excess 3mmol/L (-3-3) FiO2 40 Test 12/14/16 17:50 12/14/16 23:48 12/15/16 00:10 12/15/16 06:00 Potassium Level 3.8mmol/L (3.5-5.1) 3.6mmol/L (3.5-5.1) 3.9mmol/L (3.5-5.1) Glucose (Fingerstick) 91mg/dL (70-99) White Blood Count 15.2x10^3/uL (4.0-11.0) Red Blood Count 2.48x10^6/uL (4.30-5.70) Hemoglobin 7.5g/dL (13.0-17.5) Hematocrit 22.5% (39.0-53.0) Mean Corpuscular Volume 91fL (79-100) Mean Corpuscular Hemoglobin 30pg (25-35) Mean Corpuscular Hemoglobin Concent 33g/dL (31-37) Red Cell Distribution Width 14.3% (11.5-14.5) Platelet Count 324x10^3/uL (140-400) Neutrophils (%) (Auto) 79% (31-73) Lymphocytes (%) (Auto) 7% (24-48) Monocytes (%) (Auto) 13% (0-9) Eosinophils (%) (Auto) 1% (0-3) Basophils (%) (Auto) 0% (0-3) Neutrophils # (Auto) 12.0x10^3uL (1.8-7.7) Lymphocytes # (Auto) 1.0x10^3/uL (1.0-4.8) Monocytes # (Auto) 1.9x10^3/uL (0.0-1.1) Eosinophils # (Auto) 0.2x10^3/uL (0.0-0.7) Basophils # (Auto) 0.1x10^3/uL (0.0-0.2) Sodium Level 144mmol/L (136-145) Chloride Level 106mmol/L (98-107) Carbon Dioxide Level 27mmol/L (21-32) Anion Gap 11 (6-14) Blood Urea Nitrogen 20mg/dL (8-26) Creatinine 2.2mg/dL (0.7-1.3) Estimated GFR (Cockcroft-Gault) 38.7 Glucose Level 94mg/dL (70-99) Calcium Level 7.6mg/dL (8.5-10.1) Phosphorus Level 3.7mg/dL (2.6-4.7) Magnesium Level 1.8mg/dL (1.8-2.4) Creatine Kinase 262U/L (39-308) Albumin 2.0g/dL (3.4-5.0) Laboratory Tests Test 12/14/16 17:50 12/14/16 23:48 12/15/16 00:10 1/20/17 06:00 Potassium Level 3.8mmol/L (3.5-5.1) 3.6mmol/L (3.5-5.1) 3.9mmol/L (3.5-5.1) Glucose (Fingerstick) 91mg/dL (70-99) White Blood Count 15.2x10^3/uL (4.0-11.0) Red Blood Count 2.48x10^6/uL (4.30-5.70) Hemoglobin 7.5g/dL (13.0-17.5) Hematocrit 22.5% (39.0-53.0) Mean Corpuscular Volume 91fL (79-100) Mean Corpuscular Hemoglobin 30pg (25-35) Mean Corpuscular Hemoglobin Concent 33g/dL (31-37) Red Cell Distribution Width 14.3% (11.5-14.5) Platelet Count 324x10^3/uL (140-400) Neutrophils (%) (Auto) 79% (31-73) Lymphocytes (%) (Auto) 7% (24-48) Monocytes (%) (Auto) 13% (0-9) Eosinophils (%) (Auto) 1% (0-3) Basophils (%) (Auto) 0% (0-3) Neutrophils # (Auto) 12.0x10^3uL (1.8-7.7) Lymphocytes # (Auto) 1.0x10^3/uL (1.0-4.8) Monocytes # (Auto) 1.9x10^3/uL (0.0-1.1) Eosinophils # (Auto) 0.2x10^3/uL (0.0-0.7) Basophils # (Auto) 0.1x10^3/uL (0.0-0.2) Sodium Level 144mmol/L (136-145) Chloride Level 106mmol/L (98-107) Carbon Dioxide Level 27mmol/L (21-32) Anion Gap 11 (6-14) Blood Urea Nitrogen 20mg/dL (8-26) Creatinine 2.2mg/dL (0.7-1.3) Estimated GFR (Cockcroft-Gault) 38.7 Glucose Level 94mg/dL (70-99) Calcium Level 7.6mg/dL (8.5-10.1) Phosphorus Level 3.7mg/dL (2.6-4.7) Magnesium Level 1.8mg/dL (1.8-2.4) Creatine Kinase 262U/L (39-308) Albumin 2.0g/dL (3.4-5.0) Assessment Assessment Problems Medical Problems: (1) ARF (acute renal failure) Status: Acute (2) CAP (community acquired pneumonia) Status: Acute Problems: Plan Plan of Care Problems Medical Problems: (1) ARF (acute renal failure) Status: Acute (2) CAP (community acquired pneumonia) Status: Acute KEVIN BRANDON MD Dec 15, 2016 09:06
[2016-12-15] MEDS: CHLORHEXIDINE 0.12% 15 ML MOUTHWASH. MM SCH ×2 (09:12→21:14)
[2016-12-15] MEDS: ALBUMIN HUMAN 25% 100 ML IV SCH ×3 (09:25→21:14)
--- NOTE | 2016-12-15 10:06 | PDOC ---
PULMONARY PROGRESS NOTES Subjective Had increase R/R yesterday when off sedation on vent ,on sedation, Improving oxygenation with HD Vitals Vital Signs Date Time Temp Pulse Resp B/P Pulse Ox O2 Delivery O2 Flow Rate FiO2 12/15/16 08:17 98 Ventilator 12/15/16 08:00 98.1 76 26 105/65 98.1 Comments ros as mentioned as above discussed w rn, off sedation agitated. HEENT: Other (nc at perrl, orally intubated) Lungs: Other (Decrease bs; Rhonchi) Cardiovascular: S1, S2 Abdomen: Soft, Non-tender, Other (no mass) Extremities: No Edema Skin: Warm Labs Laboratory Tests Test 12/13/16 19:30 12/14/16 01:00 12/14/16 05:00 12/14/16 08:00 Potassium Level 3.9mmol/L (3.5-5.1) 3.6mmol/L (3.5-5.1) 4.1mmol/L (3.5-5.1) White Blood Count 17.6x10^3/uL (4.0-11.0) Red Blood Count 2.83x10^6/uL (4.30-5.70) Hemoglobin 8.4g/dL (13.0-17.5) Hematocrit 25.8% (39.0-53.0) Mean Corpuscular Volume 91fL (79-100) Mean Corpuscular Hemoglobin 30pg (25-35) Mean Corpuscular Hemoglobin Concent 32g/dL (31-37) Red Cell Distribution Width 14.4% (11.5-14.5) Platelet Count 325x10^3/uL (140-400) Neutrophils (%) (Auto) 84% (31-73) Lymphocytes (%) (Auto) 5% (24-48) Monocytes (%) (Auto) 10% (0-9) Eosinophils (%) (Auto) 1% (0-3) Basophils (%) (Auto) 0% (0-3) Neutrophils # (Auto) 14.8x10^3uL (1.8-7.7) Lymphocytes # (Auto) 0.9x10^3/uL (1.0-4.8) Monocytes # (Auto) 1.7x10^3/uL (0.0-1.1) Eosinophils # (Auto) 0.2x10^3/uL (0.0-0.7) Basophils # (Auto) 0.1x10^3/uL (0.0-0.2) Sodium Level 141mmol/L (136-145) Chloride Level 105mmol/L (98-107) Carbon Dioxide Level 27mmol/L (21-32) Anion Gap 9 (6-14) Blood Urea Nitrogen 27mg/dL (8-26) Creatinine 2.6mg/dL (0.7-1.3) Estimated GFR (Cockcroft-Gault) 31.9 Glucose Level 92mg/dL (70-99) Calcium Level 7.3mg/dL (8.5-10.1) Phosphorus Level 1.9mg/dL (2.6-4.7) Magnesium Level 1.8mg/dL (1.8-2.4) Creatine Kinase 487U/L (39-308) Albumin 1.2g/dL (3.4-5.0) O2 Saturation 96% (92-99) Arterial Blood pH 7.48 (7.35-7.45) Arterial Blood pCO2 at Patient Temp 36mmHg (35-46) Arterial Blood pO2 at Patient Temp 80mmHg (75-108) Arterial Blood HCO3 26mmol/L (21-28) Arterial Blood Base Excess 3mmol/L (-3-3) FiO2 40 Test 12/14/16 17:50 12/14/16 23:48 12/15/16 00:10 12/15/16 06:00 Potassium Level 3.8mmol/L (3.5-5.1) 3.6mmol/L (3.5-5.1) 3.9mmol/L (3.5-5.1) Glucose (Fingerstick) 91mg/dL (70-99) White Blood Count 15.2x10^3/uL (4.0-11.0) Red Blood Count 2.48x10^6/uL (4.30-5.70) Hemoglobin 7.5g/dL (13.0-17.5) Hematocrit 22.5% (39.0-53.0) Mean Corpuscular Volume 91fL (79-100) Mean Corpuscular Hemoglobin 30pg (25-35) Mean Corpuscular Hemoglobin Concent 33g/dL (31-37) Red Cell Distribution Width 14.3% (11.5-14.5) Platelet Count 324x10^3/uL (140-400) Neutrophils (%) (Auto) 79% (31-73) Lymphocytes (%) (Auto) 7% (24-48) Monocytes (%) (Auto) 13% (0-9) Eosinophils (%) (Auto) 1% (0-3) Basophils (%) (Auto) 0% (0-3) Neutrophils # (Auto) 12.0x10^3uL (1.8-7.7) Lymphocytes # (Auto) 1.0x10^3/uL (1.0-4.8) Monocytes # (Auto) 1.9x10^3/uL (0.0-1.1) Eosinophils # (Auto) 0.2x10^3/uL (0.0-0.7) Basophils # (Auto) 0.1x10^3/uL (0.0-0.2) Sodium Level 144mmol/L (136-145) Chloride Level 106mmol/L (98-107) Carbon Dioxide Level 27mmol/L (21-32) Anion Gap 11 (6-14) Blood Urea Nitrogen 20mg/dL (8-26) Creatinine 2.2mg/dL (0.7-1.3) Estimated GFR (Cockcroft-Gault) 38.7 Glucose Level 94mg/dL (70-99) Calcium Level 7.6mg/dL (8.5-10.1) Phosphorus Level 3.7mg/dL (2.6-4.7) Magnesium Level 1.8mg/dL (1.8-2.4) Creatine Kinase 262U/L (39-308) Albumin 2.0g/dL (3.4-5.0) Laboratory Tests Test 12/14/16 17:50 12/14/16 23:48 12/15/16 00:10 12/15/16 06:00 Potassium Level 3.8mmol/L (3.5-5.1) 3.6mmol/L (3.5-5.1) 3.9mmol/L (3.5-5.1) Glucose (Fingerstick) 91mg/dL (70-99) White Blood Count 15.2x10^3/uL (4.0-11.0) Red Blood Count 2.48x10^6/uL (4.30-5.70) Hemoglobin 7.5g/dL (13.0-17.5) Hematocrit 22.5% (39.0-53.0) Mean Corpuscular Volume 91fL (79-100) Mean Corpuscular Hemoglobin 30pg (25-35) Mean Corpuscular Hemoglobin Concent 33g/dL (31-37) Red Cell Distribution Width 14.3% (11.5-14.5) Platelet Count 324x10^3/uL (140-400) Neutrophils (%) (Auto) 79% (31-73) Lymphocytes (%) (Auto) 7% (24-48) Monocytes (%) (Auto) 13% (0-9) Eosinophils (%) (Auto) 1% (0-3) Basophils (%) (Auto) 0% (0-3) Neutrophils # (Auto) 12.0x10^3uL (1.8-7.7) Lymphocytes # (Auto) 1.0x10^3/uL (1.0-4.8) Monocytes # (Auto) 1.9x10^3/uL (0.0-1.1) Eosinophils # (Auto) 0.2x10^3/uL (0.0-0.7) Basophils # (Auto) 0.1x10^3/uL (0.0-0.2) Sodium Level 144mmol/L (136-145) Chloride Level 106mmol/L (98-107) Carbon Dioxide Level 27mmol/L (21-32) Anion Gap 11 (6-14) Blood Urea Nitrogen 20mg/dL (8-26) Creatinine 2.2mg/dL (0.7-1.3) Estimated GFR (Cockcroft-Gault) 38.7 Glucose Level 94mg/dL (70-99) Calcium Level 7.6mg/dL (8.5-10.1) Phosphorus Level 3.7mg/dL (2.6-4.7) Magnesium Level 1.8mg/dL (1.8-2.4) Creatine Kinase 262U/L (39-308) Albumin 2.0g/dL (3.4-5.0) Medications Active Scripts Medications Dose Route/Sig Days Date Category Percocet 5-325 Mg Tablet (Oxycodone/Acetaminophen) 1 Each Tablet 1-2 Tab PO Q4HRS 05/25/16 Reported Ultram (Tramadol Hcl) 50 Mg Tablet 50 Mg PO Q6H PRN 05/22/16 Rx Robaxin (Methocarbamol) 500 Mg Tablet 500 Mg PO QID 05/22/16 Rx Comments cxr reviewed 12/15 worsening bilateral infiltrates c/w CHF Impression . 1. Acute hypoxemic respiratory failure, multifactorial in etiology.(septic shock, CHF, Metabolic acidosis, Renal failure,Possible pneumonia) 2. worsening bilateral infiltrates, suspect persistent CHF/ less likely Pneumonia 3. CMP (EF 30%)/ cath findings c/w CHF 4. Septic shock POA.off pressors 5. Acute kidney injury. 6. Smoker. 7. History of drug abuse. 8. Status post cardiopulmonary arrest. 9. Hypotension.off pressors 10.Metabolic acidosis, improving 11. s/ p cath the Right Atrial Pressure is 20 mmHg. The Right Ventricular Pressure is 50/30 mmHg. The Pulmonary Artery Pressure is 50/29 mmHg. The Pulmonary Catheter Wedge Pressure is 25 mmHg. LVEDP 30.This is c/w ongoing CHF Plan . 1. AC mode, improving oxygenation with HD/ increase UF 2. Wean sedation / CPAP trial once awake 3. Bronchodilator, 4. s/p Bronch , severe tracheitis, Negative cultures so far 5. ID recommendations 6. Continue abx 7. Pepcid and heparin for stress ulcer and DVT prophylaxis. 8. Urine for legionella and strep pneumonia antigen, neg. 9. Urine drug screen, pos.for cocaine 10.Follow Cardiology and nephrology recommendations. Cath 11. HD to continue d/w SUZIE Fuchs MD Dec 15, 2016 10:06
[2016-12-15 11:20] LABS: FIO2 ABG 40%
[2016-12-15] MEDS ORDERED: PIPERACILLIN/TAZOBACTAM 2.25 GM in IV NORMAL SALINE 50ML 50 ML IV SCH ×2 (12:00→14:00)
--- NOTE | 2016-12-15 12:49 | PDOC ---
PROGRESS NOTES Chief Complaint Chief Complaint Chief Complaint: - Weakness, dehydration - Cardiac arrest PEA (12/08); TTE EF of 30-35% - Acute respiratory failure, likely multifactorial; On mechanical Ventilation ( 12/08)- possible aspiration pneumonia. Possible ARDS vs pulmonary edema vs PNA - ASHLEY - Septic shock, multiorgan failure, Off pressor support - Cardiomyopathy - Metabolic acidosis - Polysubstance abuse - Elevated troponin - Hypocalcemia. History of Present Illness History of Present Illness 51 year old male seen in ICU with fiance present in room. Sedated on vent, settings AC/Rate- 18/ Tidal Vol - 500/ 40% FiO2 with 7.0 PEEP/ O2 sat- 100%. Patient is tolerating hemodialysis well. Discussed case with nursing, who reported 4.5 kg were taken off during dialysis today. Vitals Vitals Vital Signs Date Time Temp Pulse Resp B/P Pulse Ox O2 Delivery O2 Flow Rate FiO2 12/15/16 10:56 100 Ventilator 12/15/16 10:00 82 24 111/79 12/15/16 08:00 98.1 98.1 Physical Exam Physical Exam Pupils pinpoint, reactive to light General: No acute distress, Other (Sedated on vent) Heart: Regular rate, Normal S1, Normal S2 Lungs: Other (Decrease bs; Rhonchi) Abdomen: Normal bowel sounds, Soft, No tenderness Extremities: No clubbing, No cyanosis Skin: No rashes, No significant lesion Labs LABS Laboratory Tests Test 12/14/16 17:50 12/14/16 23:48 12/15/16 00:10 12/15/16 06:00 Potassium Level 3.8mmol/L (3.5-5.1) 3.6mmol/L (3.5-5.1) 3.9mmol/L (3.5-5.1) Glucose (Fingerstick) 91mg/dL (70-99) White Blood Count 15.2x10^3/uL (4.0-11.0) Red Blood Count 2.48x10^6/uL (4.30-5.70) Hemoglobin 7.5g/dL (13.0-17.5) Hematocrit 22.5% (39.0-53.0) Mean Corpuscular Volume 91fL (79-100) Mean Corpuscular Hemoglobin 30pg (25-35) Mean Corpuscular Hemoglobin Concent 33g/dL (31-37) Red Cell Distribution Width 14.3% (11.5-14.5) Platelet Count 324x10^3/uL (140-400) Neutrophils (%) (Auto) 79% (31-73) Lymphocytes (%) (Auto) 7% (24-48) Monocytes (%) (Auto) 13% (0-9) Eosinophils (%) (Auto) 1% (0-3) Basophils (%) (Auto) 0% (0-3) Neutrophils # (Auto) 12.0x10^3uL (1.8-7.7) Lymphocytes # (Auto) 1.0x10^3/uL (1.0-4.8) Monocytes # (Auto) 1.9x10^3/uL (0.0-1.1) Eosinophils # (Auto) 0.2x10^3/uL (0.0-0.7) Basophils # (Auto) 0.1x10^3/uL (0.0-0.2) Sodium Level 144mmol/L (136-145) Chloride Level 106mmol/L (98-107) Carbon Dioxide Level 27mmol/L (21-32) Anion Gap 11 (6-14) Blood Urea Nitrogen 20mg/dL (8-26) Creatinine 2.2mg/dL (0.7-1.3) Estimated GFR (Cockcroft-Gault) 38.7 Glucose Level 94mg/dL (70-99) Calcium Level 7.6mg/dL (8.5-10.1) Phosphorus Level 3.7mg/dL (2.6-4.7) Magnesium Level 1.8mg/dL (1.8-2.4) Creatine Kinase 262U/L (39-308) Albumin 2.0g/dL (3.4-5.0) Test 12/15/16 08:00 12/15/16 12:02 O2 Saturation 94% (92-99) Arterial Blood pH 7.47 (7.35-7.45) Arterial Blood pCO2 at Patient Temp 37mmHg (35-46) Arterial Blood pO2 at Patient Temp 73mmHg (75-108) Arterial Blood HCO3 26mmol/L (21-28) Arterial Blood Base Excess 3mmol/L (-3-3) FiO2 40% Glucose (Fingerstick) 100mg/dL (70-99) Review of Systems Review of Systems Unobtainable, sedated on vent Assessment and Plan Assessmemt and Plan Assessment: - Weakness, dehydration - Cardiac arrest PEA (12/08); TTE EF of 30-35%, s/p left heart cath 12/12/16 - Acute respiratory failure, likely multifactorial; On mechanical Ventilation ( 12/08)- possible aspiration pneumonia. Possible ARDS vs pulmonary edema vs PNA - ASHLEY/ATN, initiating hemodialysis - Anemia - Septic shock, multiorgan failure, Off pressor support - Cardiomyopathy - Metabolic acidosis - Polysubstance abuse - Elevated troponin - Hypocalcemia. Plan - Hgb 7.5 this morning. Patient on hemodialysis and tolerating treatment well. Will continue to monitor and correct. - Continue OG tube feedings - Antibiotic management per I.D. Urine culture negative to date. - Continue monitoring in ICU - Pulmonology following, will wean off vent and trial CPAP when sedation weaned - Recheck labs in a.m. - LTAC eval ordered - Prognosis guarded - Appreciate subspecialty input Problems: Comment Review of Relevant I have reviewed the following items immanuel (where applicable) has been applied. Labs Laboratory Tests Test 12/13/16 19:30 12/14/16 01:00 12/14/16 05:00 12/14/16 08:00 Potassium Level 3.9mmol/L (3.5-5.1) 3.6mmol/L (3.5-5.1) 4.1mmol/L (3.5-5.1) White Blood Count 17.6x10^3/uL (4.0-11.0) Red Blood Count 2.83x10^6/uL (4.30-5.70) Hemoglobin 8.4g/dL (13.0-17.5) Hematocrit 25.8% (39.0-53.0) Mean Corpuscular Volume 91fL (79-100) Mean Corpuscular Hemoglobin 30pg (25-35) Mean Corpuscular Hemoglobin Concent 32g/dL (31-37) Red Cell Distribution Width 14.4% (11.5-14.5) Platelet Count 325x10^3/uL (140-400) Neutrophils (%) (Auto) 84% (31-73) Lymphocytes (%) (Auto) 5% (24-48) Monocytes (%) (Auto) 10% (0-9) Eosinophils (%) (Auto) 1% (0-3) Basophils (%) (Auto) 0% (0-3) Neutrophils # (Auto) 14.8x10^3uL (1.8-7.7) Lymphocytes # (Auto) 0.9x10^3/uL (1.0-4.8) Monocytes # (Auto) 1.7x10^3/uL (0.0-1.1) Eosinophils # (Auto) 0.2x10^3/uL (0.0-0.7) Basophils # (Auto) 0.1x10^3/uL (0.0-0.2) Sodium Level 141mmol/L (136-145) Chloride Level 105mmol/L (98-107) Carbon Dioxide Level 27mmol/L (21-32) Anion Gap 9 (6-14) Blood Urea Nitrogen 27mg/dL (8-26) Creatinine 2.6mg/dL (0.7-1.3) Estimated GFR (Cockcroft-Gault) 31.9 Glucose Level 92mg/dL (70-99) Calcium Level 7.3mg/dL (8.5-10.1) Phosphorus Level 1.9mg/dL (2.6-4.7) Magnesium Level 1.8mg/dL (1.8-2.4) Creatine Kinase 487U/L (39-308) Albumin 1.2g/dL (3.4-5.0) O2 Saturation 96% (92-99) Arterial Blood pH 7.48 (7.35-7.45) Arterial Blood pCO2 at Patient Temp 36mmHg (35-46) Arterial Blood pO2 at Patient Temp 80mmHg (75-108) Arterial Blood HCO3 26mmol/L (21-28) Arterial Blood Base Excess 3mmol/L (-3-3) FiO2 40 Test 12/14/16 17:50 12/14/16 23:48 12/15/16 00:10 12/15/16 06:00 Potassium Level 3.8mmol/L (3.5-5.1) 3.6mmol/L (3.5-5.1) 3.9mmol/L (3.5-5.1) Glucose (Fingerstick) 91mg/dL (70-99) White Blood Count 15.2x10^3/uL (4.0-11.0) Red Blood Count 2.48x10^6/uL (4.30-5.70) Hemoglobin 7.5g/dL (13.0-17.5) Hematocrit 22.5% (39.0-53.0) Mean Corpuscular Volume 91fL (79-100) Mean Corpuscular Hemoglobin 30pg (25-35) Mean Corpuscular Hemoglobin Concent 33g/dL (31-37) Red Cell Distribution Width 14.3% (11.5-14.5) Platelet Count 324x10^3/uL (140-400) Neutrophils (%) (Auto) 79% (31-73) Lymphocytes (%) (Auto) 7% (24-48) Monocytes (%) (Auto) 13% (0-9) Eosinophils (%) (Auto) 1% (0-3) Basophils (%) (Auto) 0% (0-3) Neutrophils # (Auto) 12.0x10^3uL (1.8-7.7) Lymphocytes # (Auto) 1.0x10^3/uL (1.0-4.8) Monocytes # (Auto) 1.9x10^3/uL (0.0-1.1) Eosinophils # (Auto) 0.2x10^3/uL (0.0-0.7) Basophils # (Auto) 0.1x10^3/uL (0.0-0.2) Sodium Level 144mmol/L (136-145) Chloride Level 106mmol/L (98-107) Carbon Dioxide Level 27mmol/L (21-32) Anion Gap 11 (6-14) Blood Urea Nitrogen 20mg/dL (8-26) Creatinine 2.2mg/dL (0.7-1.3) Estimated GFR (Cockcroft-Gault) 38.7 Glucose Level 94mg/dL (70-99) Calcium Level 7.6mg/dL (8.5-10.1) Phosphorus Level 3.7mg/dL (2.6-4.7) Magnesium Level 1.8mg/dL (1.8-2.4) Creatine Kinase 262U/L (39-308) Albumin 2.0g/dL (3.4-5.0) Test 12/15/16 08:00 12/15/16 12:02 O2 Saturation 94% (92-99) Arterial Blood pH 7.47 (7.35-7.45) Arterial Blood pCO2 at Patient Temp 37mmHg (35-46) Arterial Blood pO2 at Patient Temp 73mmHg (75-108) Arterial Blood HCO3 26mmol/L (21-28) Arterial Blood Base Excess 3mmol/L (-3-3) FiO2 40% Glucose (Fingerstick) 100mg/dL (70-99) Laboratory Tests Test 12/14/16 17:50 12/14/16 23:48 12/15/16 00:10 12/15/16 06:00 Potassium Level 3.8mmol/L (3.5-5.1) 3.6mmol/L (3.5-5.1) 3.9mmol/L (3.5-5.1) Glucose (Fingerstick) 91mg/dL (70-99) White Blood Count 15.2x10^3/uL (4.0-11.0) Red Blood Count 2.48x10^6/uL (4.30-5.70) Hemoglobin 7.5g/dL (13.0-17.5) Hematocrit 22.5% (39.0-53.0) Mean Corpuscular Volume 91fL (79-100) Mean Corpuscular Hemoglobin 30pg (25-35) Mean Corpuscular Hemoglobin Concent 33g/dL (31-37) Red Cell Distribution Width 14.3% (11.5-14.5) Platelet Count 324x10^3/uL (140-400) Neutrophils (%) (Auto) 79% (31-73) Lymphocytes (%) (Auto) 7% (24-48) Monocytes (%) (Auto) 13% (0-9) Eosinophils (%) (Auto) 1% (0-3) Basophils (%) (Auto) 0% (0-3) Neutrophils # (Auto) 12.0x10^3uL (1.8-7.7) Lymphocytes # (Auto) 1.0x10^3/uL (1.0-4.8) Monocytes # (Auto) 1.9x10^3/uL (0.0-1.1) Eosinophils # (Auto) 0.2x10^3/uL (0.0-0.7) Basophils # (Auto) 0.1x10^3/uL (0.0-0.2) Sodium Level 144mmol/L (136-145) Chloride Level 106mmol/L (98-107) Carbon Dioxide Level 27mmol/L (21-32) Anion Gap 11 (6-14) Blood Urea Nitrogen 20mg/dL (8-26) Creatinine 2.2mg/dL (0.7-1.3) Estimated GFR (Cockcroft-Gault) 38.7 Glucose Level 94mg/dL (70-99) Calcium Level 7.6mg/dL (8.5-10.1) Phosphorus Level 3.7mg/dL (2.6-4.7) Magnesium Level 1.8mg/dL (1.8-2.4) Creatine Kinase 262U/L (39-308) Albumin 2.0g/dL (3.4-5.0) Test 12/15/16 08:00 12/15/16 12:02 O2 Saturation 94% (92-99) Arterial Blood pH 7.47 (7.35-7.45) Arterial Blood pCO2 at Patient Temp 37mmHg (35-46) Arterial Blood pO2 at Patient Temp 73mmHg (75-108) Arterial Blood HCO3 26mmol/L (21-28) Arterial Blood Base Excess 3mmol/L (-3-3) FiO2 40% Glucose (Fingerstick) 100mg/dL (70-99) Microbiology 12/07/16 Blood Culture - Final, Complete NO GROWTH AFTER 5 DAYS 12/07/16 Stool Culture - Final, Complete 12/07/16 Stool Culture Result 1 (NEFTALI) - Final, Complete 12/07/16 Campylobacter Antigen Assay - Final, Complete 12/07/16 Campylobactor Result 1 - Final, Complete 12/07/16 Shiga Toxin Test - Final, Complete 12/12/16 AFB Specimen Processing Tissue - Final, Resulted 12/12/16 Acid Fast Bacilli Culture, Resulted Pending 12/12/16 Gram Stain - Final, Resulted 12/12/16 Fungal Culture, Resulted Pending 12/12/16 Fungal Culture Result 1, Resulted Pending 12/12/16 Urine Culture - Final, Complete 12/12/16 Urine Culture Result 1 (NEFTALI) - Final, Complete Medications Current Medications Ketorolac Tromethamine 30 mg 30 mg 1X ONCE IV Last administered on 12/07/16 14:34; Start 12/07/16 at 14:30; Stop 12/07/16 at 14:31; Status DC Sodium Chloride 1,000 ml @ 1,000 mls/hr 1X ONCE IV Last administered on 14:34; Start 12/07/16 at 14:30; Stop 12/07/16 at 15:29; Status DC Ceftriaxone Sodium 1 gm/ Sodium Chloride 50 ml @ 100 mls/hr Q24H IV ; Start at 15:30; Stop 12/08/16 at 15:30; Status DC Azithromycin 250 ml @ 250 mls/hr 1X ONCE IV Last administered on 12/07/16 15 :48; Start 12/07/16 at 15:15; Stop 12/07/16 at 16:14; Status DC Sodium Chloride 1,000 ml @ 1,000 mls/hr 1X ONCE IV Last administered on 16:09; Start 12/07/16 at 15:15; Stop 12/07/16 at 16:14; Status DC Ceftriaxone Sodium 50 ml @ 100 mls/hr 1X ONCE IV Last administered on 15:29; Start 12/07/16 at 15:15; Stop 12/07/16 at 15:44; Status DC Sodium Chloride (Iv Sodium Chloride 0.9% 1000ml Bag) 1,000 ml @ 150 mls/hr 1X ONCE IV Last administered on 12/07/16 18:10; Start 12/07/16 at 15:15; Stop 11/11 at 21:54; Status DC Famotidine (Pepcid) 20 mg 1X ONCE IVP Last administered on 12/07/16 15:48; Start 12/07/16 at 15:45; Stop 12/07/16 at 15:46; Status DC Ondansetron HCl 4 mg 4 mg 1X ONCE IV Last administered on 12/07/16 16:09; Start 12/07/16 at 16:15; Stop 12/07/16 at 16:16; Status DC Sodium Chloride (Iv Sodium Chloride 0.9% 1000ml Bag) 1,000 ml @ 150 mls/hr Q6H40M IV Last administered on 12/08/16 06:38; Start 12/07/16 at 16:30; Stop 12/08/16 at 14:21; Status DC Ondansetron HCl (Zofran) 4 mg PRN Q6HRS PRN IV NAUSEA/VOMITING; Start 12/07/16 at 16:30 Acetaminophen (Tylenol) 500 mg PRN Q6HRS PRN PO MILD PAIN / TEMP Last administered on 12/09/16 15:04; Start 12/07/16 at 16:30 Morphine Sulfate 2 mg PRN Q2HR PRN IV PAIN Last administered on 12/08/16 05:28 ; Start 12/07/16 at 16:30 Zolpidem Tartrate (Ambien) 5 mg PRN QHS PRN PO INSOMNIA Last administered on 01:06; Start 12/07/16 at 16:30; Stop 12/08/16 at 10:03; Status DC Methocarbamol (Robaxin) 500 mg QID PO Last administered on 12/07/16 21:19; Start 12/07/16 at 17:00; Stop 12/08/16 at 10:03; Status DC Oxycodone/ Acetaminophen (Percocet 5/325) 1 tab PRN Q4HRS PRN PO SEVERE PAIN; Start 12/07/16 at 16:30 Tramadol HCl (Ultram) 50 mg PRN Q6HRS PRN PO MODERATE PAIN Last administered on 12/07/16 17:11; Start 12/07/16 at 16:30 Nicotine (Nicoderm Cq 21mg) 1 patch PRN DAILY PRN TD SMOKING CESSATION; Start 12/07/16 at 16:30 Info (Do NOT chart on this placeholder) 1 each 1X ONCE MC ; Start 12/07/16 at 22:45; Stop 12/07/16 at 22:46; Status UNV Pneumococcal Polyvalent Vaccine (Do NOT chart on this placeholder) 1 each 1X ONCE MC ; Start 12/07/16 at 22:45; Stop 12/07/16 at 22:46; Status UNV Influenza Virus Vaccine Quadrival (Fluarix Quad [id number] Syringe) 0.5 ml ONCE ONCE VAX IM ; Start 12/08/16 at 09:00; Stop 12/08/16 at 09:01; Status DC Pneumococcal Polyvalent Vaccine (Pneumovax 23) 0.5 ml ONCE ONCE VAX IM ; Start 12/08/16 at 09:00; Stop 12/08/16 at 09:01; Status DC Labetalol HCl (Normodyne) 10 mg 1X ONCE IVP Last administered on 12/08/16 08: 56; Start 12/08/16 at 08:30; Stop 12/08/16 at 08:35; Status DC Alprazolam (Xanax) 0.5 mg 1X ONCE PO Last administered on 12/08/16 08:40; Start 12/08/16 at 08:45; Stop 12/08/16 at 08:46; Status DC Aspirin (Children'S Aspirin) 324 mg 1X ONCE PO Last administered on 12/08/16 13:44; Start 12/08/16 at 09:30; Stop 12/08/16 at 09:31; Status DC Aspirin (Jada Aspirin) 325 mg DAILYWBKFT PO ; Start 12/09/16 at 08:00; Stop at 08:00; Status DC Heparin Sodium (Porcine) 4000 unit 4,000 unit 1X ONCE IV ; Start 12/08/16 at 09 :30; Stop 12/08/16 at 14:21; Status DC Midazolam HCl 100 ml @ As Directed STK-MED ONCE IV ; Start 12/08/16 at 09:52; Stop 12/08/16 at 09:53; Status DC Propofol (Diprivan) 100 ml @ 0 mls/hr CONT PRN IV SEE I/O RECORD Last administered on 12/08/16 23:49; Start 12/08/16 at 10:00 Famotidine (Pepcid) 20 mg QHS IVP Last administered on 12/14/16 21:05; Start 12/08/16 at 21:00 Heparin Sodium (Porcine) 5000 unit 5,000 unit Q8HRS SQ ; Start 12/08/16 at 14:00 ; Stop 12/08/16 at 14:00; Status DC Norepinephrine Bitartrate 8 mg/ Sodium Chloride 258 ml @ 1.93 mls/hr CONT PRN IV SEE I/O RECORD; Start 12/08/16 at 10:15; Status Cancel Dopamine HCl/ Dextrose 250 ml @ As Directed STK-MED ONCE IV ; Start 12/08/16 at 10:07; Stop 12/08/16 at 10:08; Status DC Norepinephrine Bitartrate 8 mg/ Sodium Chloride 258 ml @ 0 mls/hr CONT PRN IV SEE I/O RECORD Last administered on 12/09/16 08:46; Start 12/08/16 at 10:15; Stop 12/09/16 at 11:47; Status DC Dopamine HCl/ Dextrose 250 ml @ 10.084 mls/ hr CONT PRN IV SEE I/O RECORD Last administered on 12/08/16 10:00; Start 12/08/16 at 10:15 Sodium Bicarbonate/ Sodium Chloride (Iv Sodium Chloride 0.45%) 1,050 ml @ 200 mls/hr Q5H15M IV Last administered on 12/09/16 05:11; Start 12/08/16 at 10:30 ; Stop 12/09/16 at 08:28; Status DC Phenylephrine HCl 1 mg STK-MED ONCE IV ; Start 12/08/16 at 10:25; Stop 12/08/16 at 10:26; Status DC Aspirin 300 mg 300 mg 1X ONCE OH ; Start 12/08/16 at 10:45; Stop 12/08/16 at 10 :46; Status DC Sodium Chloride 1,000 ml @ 1,000 mls/hr 1X ONCE IV Last administered on 10:00; Start 12/08/16 at 11:45; Stop 12/08/16 at 12:44; Status DC Sodium Chloride (Iv Sodium Chloride 0.9% 1000ml Bag) 1,000 ml @ 1,000 mls/hr 1X ONCE IV Last administered on 12/08/16 10:00; Start 12/08/16 at 11:45; Stop 12/08/16 at 12:44; Status DC Albuterol/ Ipratropium (Duoneb) 3 ml RTQID NEB Last administered on 12/08/16 19:44; Start 12/08/16 at 12:30; Stop 12/09/16 at 05:17; Status DC Budesonide 0.5 mg 0.5 mg RTBID NEB Last administered on 12/15/16 08:04; Start 12/08/16 at 12:30 Sodium Chloride 1,000 ml @ 1,000 mls/hr 1X ONCE IV Last administered on 11:00; Start 12/08/16 at 12:15; Stop 12/08/16 at 13:14; Status DC Sodium Chloride 1,000 ml @ 1,000 mls/hr 1X ONCE IV Last administered on 11:00; Start 12/08/16 at 12:15; Stop 12/08/16 at 13:14; Status DC Heparin Sodium/ Dextrose 500 ml @ 0 mls/hr CONT PRN IV SEE I/O RECORD Last administered on 12/09/16 13:11; Start 12/08/16 at 12:45; Stop 12/13/16 at 13:10 ; Status DC Heparin Sodium (Porcine) 1,350 unit PRN Q6HRS PRN IV FOR UFH LEVEL LESS THAN 0.2 Last administered on 12/09/16 05:47; Start 12/08/16 at 12:45; Stop at 13:10; Status DC Etomidate (Amidate) 20 mg STK-MED ONCE IV ; Start 12/08/16 at 13:00; Stop at 13:01; Status DC Succinylcholine Chloride 200 mg 200 mg STK-MED ONCE .ROUTE ; Start 12/08/16 at 13:00; Stop 12/08/16 at 13:01; Status DC Piperacillin Sod/ Tazobactam Sod 3.375 gm/Sodium Chloride 50 ml @ 100 mls/hr Q6HRS IV ; Start 12/08/16 at 18:00; Stop 12/08/16 at 18:00; Status DC Vancomycin HCl 1 gm/Sodium Chloride 250 ml @ 250 mls/hr 1X ONCE IV Last administered on 12/08/16 14:21; Start 12/08/16 at 14:00; Stop 12/08/16 at 14:59 ; Status DC Piperacillin Sod/ Tazobactam Sod 2.25 gm/Sodium Chloride 50 ml @ 100 mls/hr Q6HRS IV Last administered on 12/09/16 06:17; Start 12/08/16 at 14:00; Stop at 08:25; Status DC Midazolam HCl 100 ml @ 0 mls/hr CONT PRN IV SEE I/O RECORD Last administered on 12/15/16 06:12; Start 12/08/16 at 10:30 Fentanyl Citrate (Fentanyl 600 Mcg/30 ml SILVERWARE WASHER) 30 ml @ 0 mls/hr CONT PRN IV PROTOCOL Last administered on 12/15/16 06:18; Start 12/09/16 at 05:15 Fentanyl Citrate (Fentanyl 2ml Vial) 25 mcg PRN Q1HR PRN IV COMM; Start at 05:15 Fentanyl Citrate (Fentanyl 2ml Vial) 50 mcg PRN Q1HR PRN IV COMM; Start at 05:15 Ipratropium Power (Atrovent) 0.5 mg RTQID NEB Last administered on 12/15/16 10:59; Start 12/09/16 at 08:00 Aspirin (Children'S Aspirin) 81 mg DAILYWBKFT PO Last administered on 09:06; Start 12/09/16 at 08:00 Chlorhexidine Gluconate 15 ml 15 ml BID MM Last administered on 12/15/16 09:12 ; Start 12/09/16 at 09:00 Sodium Bicarbonate 150 meq/Dextrose 1,150 ml @ 100 mls/hr [id number] IV Last administered on 12/10/16 09:34; Start 12/09/16 at 09:00; Stop 12/10/16 at 12:14 ; Status DC Piperacillin Sod/ Tazobactam Sod 3.375 gm/Sodium Chloride 50 ml @ 100 mls/hr Q6HRS IV Last administered on 12/11/16 06:01; Start 12/09/16 at 12:00; Stop at 07:47; Status DC Norepinephrine Bitartrate 16 mg/ Sodium Chloride 266 ml @ 0.99 mls/hr CONT PRN IV SEE I/O RECORD Last administered on 12/09/16 20:36; Start 12/09/16 at 12 :00 Doxycycline Hyclate/Dextrose 100 ml @ 50 mls/hr Q12HR IV Last administered on 12/13/16 20:50; Start 12/09/16 at 13:00; Stop 12/14/16 at 08:34; Status DC Atropine Sulfate 0.5 mg STK-MED ONCE .ROUTE ; Start 12/08/16 at 10:30; Stop at 13:18; Status DC Epinephrine HCl 3 mg STK-MED ONCE .ROUTE ; Start 12/08/16 at 10:30; Stop at 13:18; Status DC Calcium Gluconate 1000 mg 1,000 mg 1X ONCE IVP ; Start 12/10/16 at 10:00; Stop 12/10/16 at 10:01; Status UNV Magnesium Sulfate/ Dextrose 50 ml @ 25 mls/hr 1X ONCE IV Last administered on 12/10/16 11:40; Start 12/10/16 at 12:00; Stop 12/10/16 at 13:59; Status DC Calcium Gluconate 1000 mg/Sodium Chloride 110 ml @ 220 mls/hr 1X ONCE IV Last administered on 12/10/16 11:36; Start 12/10/16 at 12:00; Stop 12/10/16 at 12:29; Status DC Magnesium Sulfate/ Dextrose 50 ml @ 25 mls/hr PRN DAILY PRN IV for Mag < 1.7 on am labs; Start 12/10/16 at 12:15; Stop 12/13/16 at 09:57; Status DC Amino Acids/ Glycerin/ Electrolytes 1,000 ml @ 80 mls/hr [id number] IV ; Start at 12:30; Stop 12/10/16 at 12:30; Status DC Albumin Human (Albuminar) 100 ml @ 100 mls/hr TID IV ; Start 12/10/16 at 14:00 ; Stop 12/10/16 at 14:00; Status DC Calcium Gluconate 2000 mg 2,000 mg TID IVP ; Start 12/10/16 at 14:00; Stop 12/10 at 14:00; Status DC Piperacillin Sod/ Tazobactam Sod 2.25 gm/Sodium Chloride 50 ml @ 100 mls/hr Q6HRS IV Last administered on 12/15/16 11:58; Start 12/11/16 at 12:00 Linezolid (Zyvox Premix) 300 ml @ 300 mls/hr Q12HR IV Last administered on 09:06; Start 12/11/16 at 09:00 Info 1 each 1 each PRN DAILY PRN MC SEE COMMENTS Last administered on 08:21; Start 12/11/16 at 08:15; Stop 12/13/16 at 13:13; Status DC Potassium Phosphate/Sodium Chloride (Potassium Phosphate/Iv Sodium Chloride 0.9 % 100ml) 104.5333 ml @ 52.267 m... Q2H IV Last administered on 12/11/16 17:22 ; Start 12/11/16 at 09:00; Stop 12/11/16 at 14:59; Status DC Furosemide 20 mg 20 mg 1X ONCE IVP Last administered on 12/11/16 11:10; Start 12/11/16 at 10:00; Stop 12/11/16 at 10:03; Status DC Dobutamine HCl/ Dextrose 250 ml @ 0 mls/hr CONT PRN IV SEE I/O RECORD Last administered on 12/11/16 15:05; Start 12/11/16 at 14:45 Magnesium Sulfate/ Dextrose 50 ml @ 25 mls/hr PRN DAILY PRN IV for Mag < 1.7 on am labs; Start 12/12/16 at 08:45; Stop 12/13/16 at 09:57; Status DC Potassium Chloride 50 ml @ 50 mls/hr PRN Q6HRS PRN IV For K < 3.7; Start at 08:45; Stop 12/13/16 at 09:57; Status DC Potassium Chloride (KCl Premix 20meq) 50 ml @ 50 mls/hr PRN Q2HR PRN IV total of 40mEq for K < 3.5; Start 12/12/16 at 08:45; Stop 12/13/16 at 09:57; Status DC Acetylcysteine 1200 mg 1,200 mg BID PO Last administered on 12/13/16 20:50; Start 12/12/16 at 09:00; Stop 12/14/16 at 08:17; Status DC Potassium Chloride (KCl Premix 20meq) 50 ml @ 50 mls/hr Q1H IV Last administered on 12/12/16 13:16; Start 12/12/16 at 09:00; Stop 12/12/16 at 10:59 ; Status DC Lidocaine/Sodium Bicarbonate 20 ml 20 ml STK-MED ONCE IJ ; Start 12/12/16 at 12: 13; Stop 12/12/16 at 12:14; Status DC Heparin Sodium/ Sodium Chloride 500 ml @ As Directed STK-MED ONCE .ROUTE ; Start 12/12/16 at 12:14; Stop 12/12/16 at 12:15; Status DC Lidocaine/Sodium Bicarbonate (Buffered Lidocaine 1%) 3 ml 1X ONCE IJ Last administered on 12/12/16 13:08; Start 12/12/16 at 12:15; Stop 12/12/16 at 12:17 ; Status DC Heparin Sodium (Porcine) 2,500 unit 1X ONCE INT CAT Last administered on 13:08; Start 12/12/16 at 12:15; Stop 12/12/16 at 12:17; Status DC Heparin Sodium/ Sodium Chloride 60 unit 60 unit 1X ONCE IV Last administered on 12/12/16 12:15; Start 12/12/16 at 12:15; Stop 12/12/16 at 12:17; Status DC Heparin Sodium/ Sodium Chloride 1,500 ml @ As Directed STK-MED ONCE .ROUTE ; Start 12/12/16 at 15:03; Stop 12/12/16 at 15:04; Status DC Lidocaine HCl 20 ml STK-MED ONCE .ROUTE ; Start 12/12/16 at 15:03; Stop at 15:04; Status DC Iodixanol (Visipaque 320) 100 ml STK-MED ONCE .ROUTE ; Start 12/12/16 at 15:04; Stop 12/12/16 at 15:05; Status DC Heparin Sodium/ Sodium Chloride 1,000 unit 1X ONCE IART Last administered on 15:41; Start 12/12/16 at 15:30; Stop 12/12/16 at 15:32; Status DC Iodixanol (Visipaque 320) 100 ml 1X ONCE IART Last administered on 12/12/16 15:41; Start 12/12/16 at 15:30; Stop 12/12/16 at 15:32; Status DC Lidocaine HCl 4 ml 4 ml 1X ONCE IJ Last administered on 12/12/16 15:41; Start 12/12/16 at 15:30; Stop 12/12/16 at 15:32; Status DC Potassium Chloride 50 ml @ 50 mls/hr 1X ONCE IV Last administered on 04:13; Start 12/13/16 at 04:15; Stop 12/13/16 at 05:14; Status DC Potassium Chloride 50 ml @ 50 mls/hr 1X ONCE IV Last administered on 03:13; Start 12/13/16 at 03:15; Stop 12/13/16 at 04:14; Status DC Potassium Chloride 50 ml @ 50 mls/hr Q1H IV ; Start 12/13/16 at 09:00; Stop at 09:00; Status DC Furosemide 100 mg/ Sodium Chloride 100 ml @ 0 mls/hr CONT PRN IV SEE I/O RECORD Last administered on 12/13/16 11:43; Start 12/13/16 at 10:00; Stop 12/14 at 08:17; Status DC Magnesium Sulfate/ Dextrose 50 ml @ 25 mls/hr PRN DAILY PRN IV for Mag < 1.7 on am labs; Start 12/13/16 at 10:00 Potassium Chloride 50 ml @ 50 mls/hr PRN Q6HRS PRN IV For K < 3.7 Last administered on 12/15/16 01:08; Start 12/13/16 at 10:00 Potassium Chloride 50 ml @ 50 mls/hr PRN Q2HR PRN IV total of 40mEq for K < 3.5; Start 12/13/16 at 10:00 Potassium Phosphate 40 mmol/ Sodium Chloride 113.3333 ml @ 52.267 m... PRN 1X PRN IV SEE COMMENTS; Start 12/13/16 at 10:00; Stop 12/13/16 at 23:59; Status DC Sodium Chloride 1,000 ml @ 1,000 mls/hr Q1H PRN IV hypotension; Start 12/13/16 at 14:51; Stop 12/13/16 at 20:50; Status DC Sodium Chloride (Iv Sodium Chloride 0.9% 1000ml Bag) 1,000 ml @ 400 mls/hr Q2H30M PRN IV PATENCY; Start 12/13/16 at 14:51; Stop 12/14/16 at 02:50; Status DC Info (PHARMACY MONITORING -- do not chart) 1 each PRN DAILY PRN MC SEE COMMENTS ; Start 12/13/16 at 15:00; Status UNV Info 1 each 1 each PRN DAILY PRN MC SEE COMMENTS; Start 12/13/16 at 15:00; Stop 12/15/16 at 08:35; Status DC Sodium Phosphate 0.4 mmol/Dextrose 1 ml @ 50 mls/hr BID IV ; Start 12/14/16 at 09:00; Status UNV Albumin Human (Albuminar) 100 ml @ 100 mls/hr TID IV Last administered on 12/15 09:25; Start 12/14/16 at 09:00; Stop 12/15/16 at 21:59 Darbepoetin Koffi 60 mcg 60 mcg [id number] SQ Last administered on 12/14/16 21:07 ; Start 12/14/16 at 21:00 Sodium Phosphate/ Dextrose 113.3333 ml @ 28.333 m... Q4H IV Last administered on 12/14/16 14:59; Start 12/14/16 at 09:00; Stop 12/14/16 at 16:59; Status DC Info (PHARMACY MONITORING -- do not chart) 1 each PRN DAILY PRN MC SEE COMMENTS ; Start 12/14/16 at 11:00; Status UNV Info 1 each 1 each PRN DAILY PRN MC SEE COMMENTS; Start 12/14/16 at 11:00; Status UNV Albumin Human 200 ml @ 200 mls/hr 1X PRN PRN IV Hypotension; Start 12/14/16 at 13:30; Stop 12/14/16 at 19:00; Status DC Sodium Chloride 1,000 ml @ 1,000 mls/hr Q1H PRN IV hypotension; Start 12/15/16 at 06:32; Stop 12/15/16 at 09:09; Status DC Albumin Human 200 ml @ 200 mls/hr 1X PRN PRN IV Hypotension Last administered on 12/15/16 07:38; Start 12/15/16 at 06:45; Stop 12/15/16 at 12:44; Status DC Sodium Chloride (Iv Sodium Chloride 0.9% 1000ml Bag) 1,000 ml @ 400 mls/hr Q2H30M PRN IV PATENCY; Start 12/15/16 at 06:32; Stop 12/15/16 at 18:31 Info 1 each 1 each PRN DAILY PRN MC SEE COMMENTS; Start 12/15/16 at 06:45 Piperacillin Sod/ Tazobactam Sod 2.25 gm/Sodium Chloride 50 ml @ 100 mls/hr Q8HRS IV ; Start 12/15/16 at 14:00; Stop 12/15/16 at 14:00; Status DC Piperacillin Sod/ Tazobactam Sod/ Sodium Chloride (Zosyn/Iv Sodium Chloride 0.9 % 50ml) 50 ml @ 100 mls/hr Q6HRS IV ; Start 12/15/16 at 12:00 Active Scripts Active Ultram (Tramadol Hcl) 50 Mg Tablet 50 Mg PO Q6H PRN Robaxin (Methocarbamol) 500 Mg Tablet 500 Mg PO QID Reported Percocet 5-325 Mg Tablet (Oxycodone/Acetaminophen) 1 Each Tablet 1-2 Tab PO Q4HRS Vitals/I & O Vital Sign - Last 24 Hours 12/14/16 12/14/16 12/14/16 12/14/16 13:00 13:55 14:00 15:00 Pulse 89 82 81 Resp 18 20 22 B/P 91/58 97/64 94/61 Pulse Ox 94 97 99 99 O2 Delivery Ventilator Ventilator Ventilator Ventilator 12/14/16 12/14/16 12/14/16 12/14/16 16:00 16:00 16:10 17:00 Temp 97.1 97.1 Pulse 86 87 Resp 25 23 B/P 114/79 97/63 Pulse Ox 98 98 97 O2 Delivery Ventilator Mechanical Ventilator Ventilator Ventilator 12/14/16 12/14/16 12/14/16 12/14/16 17:44 18:00 19:00 20:00 Pulse 81 86 Resp 30 18 B/P 95/59 97/56 Pulse Ox 97 99 99 O2 Delivery Ventilator Ventilator Ventilator Mechanical Ventilator 12/14/16 12/14/16 12/14/16 12/14/16 20:00 20:09 21:00 22:00 Temp 98.2 98.2 Pulse 83 85 84 Resp 20 23 31 B/P 103/60 97/57 97/61 Pulse Ox 98 98 97 99 O2 Delivery Ventilator Ventilator Ventilator Ventilator 12/14/16 12/14/16 12/14/16 12/15/16 23:00 23:45 23:59 00:00 Temp 98.1 98.1 Pulse 88 82 Resp 32 31 B/P 100/62 99/63 Pulse Ox 99 96 96 O2 Delivery Ventilator Ventilator Mechanical Ventilator Ventilator 12/15/16 12/15/16 12/15/16 12/15/16 01:00 01:49 02:00 03:00 Pulse 84 84 82 Resp 32 33 40 B/P 98/62 103/66 95/59 Pulse Ox 99 96 99 99 O2 Delivery Ventilator Ventilator Ventilator Ventilator 12/15/16 12/15/16 12/15/16 12/15/16 03:45 03:50 04:00 05:00 Temp 97.9 97.9 Pulse 82 83 Resp 40 39 B/P 98/61 96/60 Pulse Ox 96 99 99 O2 Delivery Mechanical Ventilator Ventilator Ventilator Ventilator 12/15/16 12/15/16 12/15/16 12/15/16 05:33 06:00 07:00 08:00 Temp 98.1 98.1 Pulse 81 80 76 Resp 45 30 26 B/P 101/63 97/61 105/65 Pulse Ox 99 99 98 98 O2 Delivery Ventilator Ventilator Ventilator Ventilator 12/15/16 12/15/16 12/15/16 12/15/16 08:00 08:17 09:00 10:00 Pulse 80 82 Resp 26 24 B/P 109/72 111/79 Pulse Ox 98 100 100 O2 Delivery Mechanical Ventilator Ventilator Ventilator Ventilator 12/15/16 10:56 Pulse Ox 100 O2 Delivery Ventilator Intake and Output 12/14/16 12/14/16 12/15/16 15:00 23:00 07:00 Intake Total 620 ml 1442.2 ml 1375 ml Output Total 230 ml 297 ml 440 ml Balance 390 ml 1145.2 ml 935 ml MAGNO CHAPARRO III DO Dec 15, 2016 12:49
[2016-12-15] MEDS: FAMOTIDINE 20 MG/2 ML VIAL IVP SCH (21:14)
[2016-12-16] VITALS (24 sets, daily range): BP systolic 97–207; BP diastolic 63–128
[2016-12-16] MEDS: PIPERACILLIN/TAZOBACTAM 2.25 GM in IV NORMAL SALINE 50ML 50 ML IV SCH ×4 (00:42→17:45)
[2016-12-16] MEDS: MIDAZOLAM PREMIX 100 ML IV PRN ×2 (06:08→19:42)
[2016-12-16] MEDS: FENTANYL STANDARD PCA 30 ML IV PRN ×3 (06:09→19:17)
[2016-12-16 06:54] LABS: ALBUMIN 2.8 g/dL (3.4-5.0); CALCIUM 8.1 mg/dL (8.5-10.1); CREATININE 2.2 mg/dL (0.7-1.3)
[2016-12-16 06:55] LABS: GFR 38.7; PHOSPHORUS 2.9 mg/dL (2.6-4.7); POTASSIUM 4.2 mmol/L (3.5-5.1)
[2016-12-16 07:06] LABS: BASO # 0.1 x10^3/uL (0.0-0.2); BASO % 0 % (0-3); EOS % 1 % (0-3); HEMATOCRIT 23.1 % (39.0-53.0); HEMOGLOBIN 7.5 g/dL (13.0-17.5); LYMPH % 7 % (24-48); MEAN CORPUSCULAR HEMOGLOBIN 30 pg (25-35); MEAN CORPUSCULAR HGB CONC 33 g/dL (31-37); MEAN CORPUSCULAR VOLUME 91 fL (79-100); MONO % 14 % (0-9); NEUT % 78 % (31-73); PLATELET COUNT 324 x10^3/uL (140-400); RED BLOOD COUNT 2.54 x10^6/uL (4.30-5.70); RED CELL DISTRIBUTION WIDTH 14.1 % (11.5-14.5); WHITE BLOOD COUNT 16.1 x10^3/uL (4.0-11.0)
[2016-12-16] MEDS: ASPIRIN 81 MG TAB.CHEW PO SCH (08:00)
[2016-12-16] MEDS: IPRATROPIUM BROMIDE 0.5 MG/2.5 ML NEBU. NEB SCH ×4 (08:15→19:03)
[2016-12-16] MEDS: BUDESONIDE 0.5 MG/2 ML NEBU NEB SCH ×2 (08:16→19:03)
[2016-12-16] MEDS: CHLORHEXIDINE 0.12% 15 ML MOUTHWASH. MM SCH (08:21)
[2016-12-16 08:36] LABS: HCO3 ABG 27 mmol/L (21-28); PCO2 ABG 37 mmHg (35-46); PH ABG 7.49 (7.35-7.45); PO2 ABG 67 mmHg (75-108); SAT O2 ABG 93 % (92-99)
[2016-12-16 08:49] LABS: FIO2 ABG 40
--- NOTE | 2016-12-16 10:39 | PDOC ---
Infectious Disease Note Subjective Subjective Sedated. Remains on vent. FiO2 100% Tube feedings. + residuals earlier, now resumed No fever ROS ROS Unobtainable Vital Sign Vital Signs Vital Signs Date Time Temp Pulse Resp B/P Pulse Ox O2 Delivery O2 Flow Rate FiO2 12/16/16 10:00 85 119/73 100 Ventilator 12/16/16 08:00 98.1 26 98.1 Physical Exam PHYSICAL EXAM GENERAL: Intubated and sedated HEENT: Pupils small and equal. ETT. OGT LUNGS: Clear. vent. HEART: S1S2, no gallop, no murmur. ABD: idly distended, BS present, soft : Garcia EXT: generalized 1 to 2 plus. Mitts BLANKET BINDER: Sedated SKIN: No rash RUE PICC. (12/09). clean. [facility] HD cath clean Labs Lab Laboratory Tests Test 12/15/16 12:02 12/15/16 17:51 12/16/16 06:10 12/16/16 08:00 Glucose (Fingerstick) 100mg/dL (70-99) H 133mg/dL (70-99) H White Blood Count 16.1x10^3/uL (4.0-11.0) H Red Blood Count 2.54x10^6/uL (4.30-5.70) L Hemoglobin 7.5g/dL (13.0-17.5) L Hematocrit 23.1% (39.0-53.0) L Mean Corpuscular Volume 91fL (79-100) Mean Corpuscular Hemoglobin 30pg (25-35) Mean Corpuscular Hemoglobin Concent 33g/dL (31-37) Red Cell Distribution Width 14.1% (11.5-14.5) Platelet Count 324x10^3/uL (140-400) Neutrophils (%) (Auto) 78% (31-73) H Lymphocytes (%) (Auto) 7% (24-48) L Monocytes (%) (Auto) 14% (0-9) H Eosinophils (%) (Auto) 1% (0-3) Basophils (%) (Auto) 0% (0-3) Neutrophils # (Auto) 12.7x10^3uL (1.8-7.7) H Lymphocytes # (Auto) 1.0x10^3/uL (1.0-4.8) Monocytes # (Auto) 2.2x10^3/uL (0.0-1.1) H Eosinophils # (Auto) 0.1x10^3/uL (0.0-0.7) Basophils # (Auto) 0.1x10^3/uL (0.0-0.2) Platelet Estimate Pending Sodium Level 145mmol/L (136-145) Potassium Level 4.2mmol/L (3.5-5.1) Chloride Level 107mmol/L (98-107) Carbon Dioxide Level 29mmol/L (21-32) Anion Gap 9 (6-14) Blood Urea Nitrogen 17mg/dL (8-26) Creatinine 2.2mg/dL (0.7-1.3) H Estimated GFR (Cockcroft-Gault) 38.7 Glucose Level 92mg/dL (70-99) Calcium Level 8.1mg/dL (8.5-10.1) L Phosphorus Level 2.9mg/dL (2.6-4.7) Creatine Kinase 193U/L (39-308) Albumin 2.8g/dL (3.4-5.0) L O2 Saturation 93% (92-99) Arterial Blood pH 7.49 (7.35-7.45) H Arterial Blood pCO2 at Patient Temp 37mmHg (35-46) Arterial Blood pO2 at Patient Temp 67mmHg (75-108) L Arterial Blood HCO3 27mmol/L (21-28) Arterial Blood Base Excess 4mmol/L (-3-3) H FiO2 40 Laboratory Tests 12/16/16 06:10 Laboratory Tests 12/16/16 06:10 Objective Assessment Sepsis with lactic acidosis. POA - off Pressors Anemia Fever - curve better Leukocytosis - better Pneumonia - S/p Bronch 12/12 - GPC on gram stain. Cult neg so far -Influenza screen neg -Strep antigen & legionella Ag neg Acute encephalopathy Acute respiratory failure s/p intubation s/p PEA cardiopulmonary arrest - S/p Cath 12/12 -TTE EF 30-35%. -No veg noted Hypotension on vasopressor support x 2. Now off ASHLEY - Renal following - worse Polysubstance abuse Diarrhea. c. diff neg. stool cx neg Plan Plan of Care Continue Zyvox and Zosyn. taper soon Monitor labs/temp Supportive care Critically ill still Patient seen and examined. Chart reviewed. Case discussed with PERSON INVESTIGATOR. Agree with plan of care SHAUNNA SERRANO APRN Dec 16, 2016 10:39 CRISTIAN DELGADO MD Dec 16, 2016 21:33
[2016-12-16 10:55] LABS: % EOS 2 % (0-5); PLT ESTIMATE ADEQUATE (ADEQUATE)
--- NOTE | 2016-12-16 11:19 | PDOC ---
PULMONARY PROGRESS NOTES Subjective No overnight events. HR& HTN with sedation vacation. Continues on ventilatory support. Plans for HD today Vitals Vital Signs Date Time Temp Pulse Resp B/P Pulse Ox O2 Delivery O2 Flow Rate FiO2 12/16/16 10:00 85 119/73 100 Ventilator 12/16/16 08:00 98.1 26 98.1 Comments ros as mentioned as above discussed w rn, off sedation agitated. General: No acute distress HEENT: Other (nc at perrl, orally intubated) Lungs: Other (Decrease bs; Rhonchi) Cardiovascular: S1, S2 Abdomen: Soft, Non-tender, Other (no mass) Extremities: No Edema Skin: Warm, Dry, No Rashes Labs Laboratory Tests Test 12/14/16 17:50 12/14/16 23:48 12/15/16 00:10 12/15/16 06:00 Potassium Level 3.8mmol/L (3.5-5.1) 3.6mmol/L (3.5-5.1) 3.9mmol/L (3.5-5.1) Glucose (Fingerstick) 91mg/dL (70-99) White Blood Count 15.2x10^3/uL (4.0-11.0) Red Blood Count 2.48x10^6/uL (4.30-5.70) Hemoglobin 7.5g/dL (13.0-17.5) Hematocrit 22.5% (39.0-53.0) Mean Corpuscular Volume 91fL (79-100) Mean Corpuscular Hemoglobin 30pg (25-35) Mean Corpuscular Hemoglobin Concent 33g/dL (31-37) Red Cell Distribution Width 14.3% (11.5-14.5) Platelet Count 324x10^3/uL (140-400) Neutrophils (%) (Auto) 79% (31-73) Lymphocytes (%) (Auto) 7% (24-48) Monocytes (%) (Auto) 13% (0-9) Eosinophils (%) (Auto) 1% (0-3) Basophils (%) (Auto) 0% (0-3) Neutrophils # (Auto) 12.0x10^3uL (1.8-7.7) Lymphocytes # (Auto) 1.0x10^3/uL (1.0-4.8) Monocytes # (Auto) 1.9x10^3/uL (0.0-1.1) Eosinophils # (Auto) 0.2x10^3/uL (0.0-0.7) Basophils # (Auto) 0.1x10^3/uL (0.0-0.2) Sodium Level 144mmol/L (136-145) Chloride Level 106mmol/L (98-107) Carbon Dioxide Level 27mmol/L (21-32) Anion Gap 11 (6-14) Blood Urea Nitrogen 20mg/dL (8-26) Creatinine 2.2mg/dL (0.7-1.3) Estimated GFR (Cockcroft-Gault) 38.7 Glucose Level 94mg/dL (70-99) Calcium Level 7.6mg/dL (8.5-10.1) Phosphorus Level 3.7mg/dL (2.6-4.7) Magnesium Level 1.8mg/dL (1.8-2.4) Creatine Kinase 262U/L (39-308) Albumin 2.0g/dL (3.4-5.0) Test 12/15/16 08:00 12/15/16 12:02 12/15/16 17:51 12/16/16 06:10 O2 Saturation 94% (92-99) Arterial Blood pH 7.47 (7.35-7.45) Arterial Blood pCO2 at Patient Temp 37mmHg (35-46) Arterial Blood pO2 at Patient Temp 73mmHg (75-108) Arterial Blood HCO3 26mmol/L (21-28) Arterial Blood Base Excess 3mmol/L (-3-3) FiO2 40% Glucose (Fingerstick) 100mg/dL (70-99) 133mg/dL (70-99) White Blood Count 16.1x10^3/uL (4.0-11.0) Red Blood Count 2.54x10^6/uL (4.30-5.70) Hemoglobin 7.5g/dL (13.0-17.5) Hematocrit 23.1% (39.0-53.0) Mean Corpuscular Volume 91fL (79-100) Mean Corpuscular Hemoglobin 30pg (25-35) Mean Corpuscular Hemoglobin Concent 33g/dL (31-37) Red Cell Distribution Width 14.1% (11.5-14.5) Platelet Count 324x10^3/uL (140-400) Neutrophils (%) (Auto) 78% (31-73) Lymphocytes (%) (Auto) 7% (24-48) Monocytes (%) (Auto) 14% (0-9) Eosinophils (%) (Auto) 1% (0-3) Basophils (%) (Auto) 0% (0-3) Neutrophils # (Auto) 12.7x10^3uL (1.8-7.7) Lymphocytes # (Auto) 1.0x10^3/uL (1.0-4.8) Monocytes # (Auto) 2.2x10^3/uL (0.0-1.1) Eosinophils # (Auto) 0.1x10^3/uL (0.0-0.7) Basophils # (Auto) 0.1x10^3/uL (0.0-0.2) Segmented Neutrophils % 78% (35-66) Band Neutrophils % 4% (0-9) Lymphocytes % 8% (24-48) Atypical Lymphocytes % (Manual) 1% (0-0) Monocytes % 6% (0-10) Eosinophils % 2% (0-5) Myelocytes % 1% (0-0) Platelet Estimate Adequate (ADEQUATE) Sodium Level 145mmol/L (136-145) Potassium Level 4.2mmol/L (3.5-5.1) Chloride Level 107mmol/L (98-107) Carbon Dioxide Level 29mmol/L (21-32) Anion Gap 9 (6-14) Blood Urea Nitrogen 17mg/dL (8-26) Creatinine 2.2mg/dL (0.7-1.3) Estimated GFR (Cockcroft-Gault) 38.7 Glucose Level 92mg/dL (70-99) Calcium Level 8.1mg/dL (8.5-10.1) Phosphorus Level 2.9mg/dL (2.6-4.7) Creatine Kinase 193U/L (39-308) Albumin 2.8g/dL (3.4-5.0) Test 12/16/16 08:00 O2 Saturation 93% (92-99) Arterial Blood pH 7.49 (7.35-7.45) Arterial Blood pCO2 at Patient Temp 37mmHg (35-46) Arterial Blood pO2 at Patient Temp 67mmHg (75-108) Arterial Blood HCO3 27mmol/L (21-28) Arterial Blood Base Excess 4mmol/L (-3-3) FiO2 40 Laboratory Tests Test 12/15/16 12:02 12/15/16 17:51 12/16/16 06:10 12/16/16 08:00 Glucose (Fingerstick) 100mg/dL (70-99) 133mg/dL (70-99) White Blood Count 16.1x10^3/uL (4.0-11.0) Red Blood Count 2.54x10^6/uL (4.30-5.70) Hemoglobin 7.5g/dL (13.0-17.5) Hematocrit 23.1% (39.0-53.0) Mean Corpuscular Volume 91fL (79-100) Mean Corpuscular Hemoglobin 30pg (25-35) Mean Corpuscular Hemoglobin Concent 33g/dL (31-37) Red Cell Distribution Width 14.1% (11.5-14.5) Platelet Count 324x10^3/uL (140-400) Neutrophils (%) (Auto) 78% (31-73) Lymphocytes (%) (Auto) 7% (24-48) Monocytes (%) (Auto) 14% (0-9) Eosinophils (%) (Auto) 1% (0-3) Basophils (%) (Auto) 0% (0-3) Neutrophils # (Auto) 12.7x10^3uL (1.8-7.7) Lymphocytes # (Auto) 1.0x10^3/uL (1.0-4.8) Monocytes # (Auto) 2.2x10^3/uL (0.0-1.1) Eosinophils # (Auto) 0.1x10^3/uL (0.0-0.7) Basophils # (Auto) 0.1x10^3/uL (0.0-0.2) Segmented Neutrophils % 78% (35-66) Band Neutrophils % 4% (0-9) Lymphocytes % 8% (24-48) Atypical Lymphocytes % (Manual) 1% (0-0) Monocytes % 6% (0-10) Eosinophils % 2% (0-5) Myelocytes % 1% (0-0) Platelet Estimate Adequate (ADEQUATE) Sodium Level 145mmol/L (136-145) Potassium Level 4.2mmol/L (3.5-5.1) Chloride Level 107mmol/L (98-107) Carbon Dioxide Level 29mmol/L (21-32) Anion Gap 9 (6-14) Blood Urea Nitrogen 17mg/dL (8-26) Creatinine 2.2mg/dL (0.7-1.3) Estimated GFR (Cockcroft-Gault) 38.7 Glucose Level 92mg/dL (70-99) Calcium Level 8.1mg/dL (8.5-10.1) Phosphorus Level 2.9mg/dL (2.6-4.7) Creatine Kinase 193U/L (39-308) Albumin 2.8g/dL (3.4-5.0) O2 Saturation 93% (92-99) Arterial Blood pH 7.49 (7.35-7.45) Arterial Blood pCO2 at Patient Temp 37mmHg (35-46) Arterial Blood pO2 at Patient Temp 67mmHg (75-108) Arterial Blood HCO3 27mmol/L (21-28) Arterial Blood Base Excess 4mmol/L (-3-3) FiO2 40 Medications Active Scripts Medications Dose Route/Sig Days Date Category Percocet 5-325 Mg Tablet (Oxycodone/Acetaminophen) 1 Each Tablet 1-2 Tab PO Q4HRS 05/25/16 Reported Ultram (Tramadol Hcl) 50 Mg Tablet 50 Mg PO Q6H PRN 05/22/16 Rx Robaxin (Methocarbamol) 500 Mg Tablet 500 Mg PO QID 05/22/16 Rx Comments cxr reviewed 12/15 worsening bilateral infiltrates c/w CHF Impression . 1. Acute hypoxemic respiratory failure, multifactorial in etiology.(septic shock, CHF, Metabolic acidosis, Renal failure,Possible pneumonia) 2. worsening bilateral infiltrates, suspect persistent CHF/ less likely Pneumonia 3. CMP (EF 30%)/ cath findings c/w CHF 4. Septic shock POA.off pressors 5. Acute kidney injury. 6. Smoker. 7. History of drug abuse. 8. Status post cardiopulmonary arrest. 9. Hypotension.off pressors 10.Metabolic acidosis, improving 11. s/ p cath the Right Atrial Pressure is 20 mmHg. The Right Ventricular Pressure is 50/30 mmHg. The Pulmonary Artery Pressure is 50/29 mmHg. The Pulmonary Catheter Wedge Pressure is 25 mmHg. LVEDP 30. This is c/w ongoing CHF Plan . 1. AC, Peep 5, RR 16, and ventilatory parameters improving - will trial precidex gtt to control anxiety as sedation lightened. 2. Wean sedation / CPAP trial once awake 3. Bronchodilator, 4. s/p Bronch , severe tracheitis, Negative cultures so far 5. ID recommendations 6. Continue abx 7. Pepcid and heparin for stress ulcer and DVT prophylaxis. 8. Urine for legionella and strep pneumonia antigen, neg. 9. Urine drug screen, pos.for cocaine 10.Follow Cardiology and nephrology recommendations. Cath 11. HD to continue per nephrology - noted plans for HD today ANDREW SANCHEZ MD Dec 16, 2016 11:19
[2016-12-16] MEDS ORDERED: ATROPINE 0.5 MG/5 ML DISP.SYRIN. IV PRN (12:15)
[2016-12-16] MEDS ORDERED: IV NORMAL SALINE 500ML BAG 500 ML IV PRN (12:15)
--- NOTE | 2016-12-16 12:51 | PDOC ---
PROGRESS NOTES Chief Complaint Chief Complaint Chief Complaint: - Weakness, dehydration - Cardiac arrest PEA (12/08); TTE EF of 30-35% - Acute respiratory failure, likely multifactorial; On mechanical Ventilation ( 12/08)- possible aspiration pneumonia. Possible ARDS vs pulmonary edema vs PNA - ASHLEY - Septic shock, multiorgan failure, Off pressor support - Cardiomyopathy - Metabolic acidosis - Polysubstance abuse - Elevated troponin - Hypocalcemia. History of Present Illness History of Present Illness 51 year old male seen in ICU. Sedated on vent, settings AC/Rate- 16/ Tidal Vol - 400/ 100% FiO2 with 7.0 PEEP/ O2 sat- 100%. Discussed case with nursing, who reported plans for dialysis today. Also related that when patient's sedation is decreased he does awaken but does not respond to or follow verbal commands, and his blood pressure quickly increases. Vitals Vitals Vital Signs Date Time Temp Pulse Resp B/P Pulse Ox O2 Delivery O2 Flow Rate FiO2 12/16/16 11:35 99 Ventilator 12/16/16 11:00 82 26 105/65 12/16/16 08:00 98.1 98.1 Physical Exam Physical Exam Pupils pinpoint, reactive to light General: No acute distress, Other (Sedated on vent) Heart: Regular rate, Normal S1, Normal S2 Lungs: Other (Decrease bs; Rhonchi) Abdomen: Normal bowel sounds, Soft, No tenderness Extremities: No clubbing, No cyanosis Skin: No rashes, No significant lesion Labs LABS Laboratory Tests Test 12/15/16 17:51 12/16/16 06:10 12/16/16 08:00 12/16/16 12:19 Glucose (Fingerstick) 133mg/dL (70-99) 113mg/dL (70-99) White Blood Count 16.1x10^3/uL (4.0-11.0) Red Blood Count 2.54x10^6/uL (4.30-5.70) Hemoglobin 7.5g/dL (13.0-17.5) Hematocrit 23.1% (39.0-53.0) Mean Corpuscular Volume 91fL (79-100) Mean Corpuscular Hemoglobin 30pg (25-35) Mean Corpuscular Hemoglobin Concent 33g/dL (31-37) Red Cell Distribution Width 14.1% (11.5-14.5) Platelet Count 324x10^3/uL (140-400) Neutrophils (%) (Auto) 78% (31-73) Lymphocytes (%) (Auto) 7% (24-48) Monocytes (%) (Auto) 14% (0-9) Eosinophils (%) (Auto) 1% (0-3) Basophils (%) (Auto) 0% (0-3) Neutrophils # (Auto) 12.7x10^3uL (1.8-7.7) Lymphocytes # (Auto) 1.0x10^3/uL (1.0-4.8) Monocytes # (Auto) 2.2x10^3/uL (0.0-1.1) Eosinophils # (Auto) 0.1x10^3/uL (0.0-0.7) Basophils # (Auto) 0.1x10^3/uL (0.0-0.2) Segmented Neutrophils % 78% (35-66) Band Neutrophils % 4% (0-9) Lymphocytes % 8% (24-48) Atypical Lymphocytes % (Manual) 1% (0-0) Monocytes % 6% (0-10) Eosinophils % 2% (0-5) Myelocytes % 1% (0-0) Platelet Estimate Adequate (ADEQUATE) Sodium Level 145mmol/L (136-145) Potassium Level 4.2mmol/L (3.5-5.1) Chloride Level 107mmol/L (98-107) Carbon Dioxide Level 29mmol/L (21-32) Anion Gap 9 (6-14) Blood Urea Nitrogen 17mg/dL (8-26) Creatinine 2.2mg/dL (0.7-1.3) Estimated GFR (Cockcroft-Gault) 38.7 Glucose Level 92mg/dL (70-99) Calcium Level 8.1mg/dL (8.5-10.1) Phosphorus Level 2.9mg/dL (2.6-4.7) Creatine Kinase 193U/L (39-308) Albumin 2.8g/dL (3.4-5.0) O2 Saturation 93% (92-99) Arterial Blood pH 7.49 (7.35-7.45) Arterial Blood pCO2 at Patient Temp 37mmHg (35-46) Arterial Blood pO2 at Patient Temp 67mmHg (75-108) Arterial Blood HCO3 27mmol/L (21-28) Arterial Blood Base Excess 4mmol/L (-3-3) FiO2 40 Review of Systems Review of Systems Unobtainable, Sedated on vent Assessment and Plan Assessmemt and Plan Assessment: - Weakness, dehydration - Cardiac arrest PEA (12/08); TTE EF of 30-35%, s/p left heart cath 12/12/16 - Acute respiratory failure, likely multifactorial; On mechanical Ventilation ( 12/08)- possible aspiration pneumonia. Possible ARDS vs pulmonary edema vs PNA - ASHLEY/ATN, initiating hemodialysis - Anemia - Septic shock, multiorgan failure, Off pressor support - Cardiomyopathy - Metabolic acidosis - Polysubstance abuse - Elevated troponin - Hypocalcemia. Plan - Hgb 7.5 again this morning. Patient on hemodialysis and tolerating treatment well. Will continue to monitor and correct as needed. - Continue OG tube feedings - Antibiotic management per I.D. Urine culture negative to date. Possible fungus present on bronch wash. - Continue monitoring in ICU - Pulmonology following, will wean off vent and trial CPAP when sedation weaned - Recheck labs in a.m. - LTAC eval in progress - Prognosis guarded - Appreciate subspecialty input Problems: Comment Review of Relevant I have reviewed the following items immanuel (where applicable) has been applied. Labs Laboratory Tests Test 12/14/16 17:50 12/14/16 23:48 12/15/16 00:10 12/15/16 06:00 Potassium Level 3.8mmol/L (3.5-5.1) 3.6mmol/L (3.5-5.1) 3.9mmol/L (3.5-5.1) Glucose (Fingerstick) 91mg/dL (70-99) White Blood Count 15.2x10^3/uL (4.0-11.0) Red Blood Count 2.48x10^6/uL (4.30-5.70) Hemoglobin 7.5g/dL (13.0-17.5) Hematocrit 22.5% (39.0-53.0) Mean Corpuscular Volume 91fL (79-100) Mean Corpuscular Hemoglobin 30pg (25-35) Mean Corpuscular Hemoglobin Concent 33g/dL (31-37) Red Cell Distribution Width 14.3% (11.5-14.5) Platelet Count 324x10^3/uL (140-400) Neutrophils (%) (Auto) 79% (31-73) Lymphocytes (%) (Auto) 7% (24-48) Monocytes (%) (Auto) 13% (0-9) Eosinophils (%) (Auto) 1% (0-3) Basophils (%) (Auto) 0% (0-3) Neutrophils # (Auto) 12.0x10^3uL (1.8-7.7) Lymphocytes # (Auto) 1.0x10^3/uL (1.0-4.8) Monocytes # (Auto) 1.9x10^3/uL (0.0-1.1) Eosinophils # (Auto) 0.2x10^3/uL (0.0-0.7) Basophils # (Auto) 0.1x10^3/uL (0.0-0.2) Sodium Level 144mmol/L (136-145) Chloride Level 106mmol/L (98-107) Carbon Dioxide Level 27mmol/L (21-32) Anion Gap 11 (6-14) Blood Urea Nitrogen 20mg/dL (8-26) Creatinine 2.2mg/dL (0.7-1.3) Estimated GFR (Cockcroft-Gault) 38.7 Glucose Level 94mg/dL (70-99) Calcium Level 7.6mg/dL (8.5-10.1) Phosphorus Level 3.7mg/dL (2.6-4.7) Magnesium Level 1.8mg/dL (1.8-2.4) Creatine Kinase 262U/L (39-308) Albumin 2.0g/dL (3.4-5.0) Test 12/15/16 08:00 12/15/16 12:02 12/15/16 17:51 12/16/16 06:10 O2 Saturation 94% (92-99) Arterial Blood pH 7.47 (7.35-7.45) Arterial Blood pCO2 at Patient Temp 37mmHg (35-46) Arterial Blood pO2 at Patient Temp 73mmHg (75-108) Arterial Blood HCO3 26mmol/L (21-28) Arterial Blood Base Excess 3mmol/L (-3-3) FiO2 40% Glucose (Fingerstick) 100mg/dL (70-99) 133mg/dL (70-99) White Blood Count 16.1x10^3/uL (4.0-11.0) Red Blood Count 2.54x10^6/uL (4.30-5.70) Hemoglobin 7.5g/dL (13.0-17.5) Hematocrit 23.1% (39.0-53.0) Mean Corpuscular Volume 91fL (79-100) Mean Corpuscular Hemoglobin 30pg (25-35) Mean Corpuscular Hemoglobin Concent 33g/dL (31-37) Red Cell Distribution Width 14.1% (11.5-14.5) Platelet Count 324x10^3/uL (140-400) Neutrophils (%) (Auto) 78% (31-73) Lymphocytes (%) (Auto) 7% (24-48) Monocytes (%) (Auto) 14% (0-9) Eosinophils (%) (Auto) 1% (0-3) Basophils (%) (Auto) 0% (0-3) Neutrophils # (Auto) 12.7x10^3uL (1.8-7.7) Lymphocytes # (Auto) 1.0x10^3/uL (1.0-4.8) Monocytes # (Auto) 2.2x10^3/uL (0.0-1.1) Eosinophils # (Auto) 0.1x10^3/uL (0.0-0.7) Basophils # (Auto) 0.1x10^3/uL (0.0-0.2) Segmented Neutrophils % 78% (35-66) Band Neutrophils % 4% (0-9) Lymphocytes % 8% (24-48) Atypical Lymphocytes % (Manual) 1% (0-0) Monocytes % 6% (0-10) Eosinophils % 2% (0-5) Myelocytes % 1% (0-0) Platelet Estimate Adequate (ADEQUATE) Sodium Level 145mmol/L (136-145) Potassium Level 4.2mmol/L (3.5-5.1) Chloride Level 107mmol/L (98-107) Carbon Dioxide Level 29mmol/L (21-32) Anion Gap 9 (6-14) Blood Urea Nitrogen 17mg/dL (8-26) Creatinine 2.2mg/dL (0.7-1.3) Estimated GFR (Cockcroft-Gault) 38.7 Glucose Level 92mg/dL (70-99) Calcium Level 8.1mg/dL (8.5-10.1) Phosphorus Level 2.9mg/dL (2.6-4.7) Creatine Kinase 193U/L (39-308) Albumin 2.8g/dL (3.4-5.0) Test 12/16/16 08:00 12/16/16 12:19 O2 Saturation 93% (92-99) Arterial Blood pH 7.49 (7.35-7.45) Arterial Blood pCO2 at Patient Temp 37mmHg (35-46) Arterial Blood pO2 at Patient Temp 67mmHg (75-108) Arterial Blood HCO3 27mmol/L (21-28) Arterial Blood Base Excess 4mmol/L (-3-3) FiO2 40 Glucose (Fingerstick) 113mg/dL (70-99) Laboratory Tests Test 12/15/16 17:51 12/16/16 06:10 12/16/16 08:00 12/16/16 12:19 Glucose (Fingerstick) 133mg/dL (70-99) 113mg/dL (70-99) White Blood Count 16.1x10^3/uL (4.0-11.0) Red Blood Count 2.54x10^6/uL (4.30-5.70) Hemoglobin 7.5g/dL (13.0-17.5) Hematocrit 23.1% (39.0-53.0) Mean Corpuscular Volume 91fL (79-100) Mean Corpuscular Hemoglobin 30pg (25-35) Mean Corpuscular Hemoglobin Concent 33g/dL (31-37) Red Cell Distribution Width 14.1% (11.5-14.5) Platelet Count 324x10^3/uL (140-400) Neutrophils (%) (Auto) 78% (31-73) Lymphocytes (%) (Auto) 7% (24-48) Monocytes (%) (Auto) 14% (0-9) Eosinophils (%) (Auto) 1% (0-3) Basophils (%) (Auto) 0% (0-3) Neutrophils # (Auto) 12.7x10^3uL (1.8-7.7) Lymphocytes # (Auto) 1.0x10^3/uL (1.0-4.8) Monocytes # (Auto) 2.2x10^3/uL (0.0-1.1) Eosinophils # (Auto) 0.1x10^3/uL (0.0-0.7) Basophils # (Auto) 0.1x10^3/uL (0.0-0.2) Segmented Neutrophils % 78% (35-66) Band Neutrophils % 4% (0-9) Lymphocytes % 8% (24-48) Atypical Lymphocytes % (Manual) 1% (0-0) Monocytes % 6% (0-10) Eosinophils % 2% (0-5) Myelocytes % 1% (0-0) Platelet Estimate Adequate (ADEQUATE) Sodium Level 145mmol/L (136-145) Potassium Level 4.2mmol/L (3.5-5.1) Chloride Level 107mmol/L (98-107) Carbon Dioxide Level 29mmol/L (21-32) Anion Gap 9 (6-14) Blood Urea Nitrogen 17mg/dL (8-26) Creatinine 2.2mg/dL (0.7-1.3) Estimated GFR (Cockcroft-Gault) 38.7 Glucose Level 92mg/dL (70-99) Calcium Level 8.1mg/dL (8.5-10.1) Phosphorus Level 2.9mg/dL (2.6-4.7) Creatine Kinase 193U/L (39-308) Albumin 2.8g/dL (3.4-5.0) O2 Saturation 93% (92-99) Arterial Blood pH 7.49 (7.35-7.45) Arterial Blood pCO2 at Patient Temp 37mmHg (35-46) Arterial Blood pO2 at Patient Temp 67mmHg (75-108) Arterial Blood HCO3 27mmol/L (21-28) Arterial Blood Base Excess 4mmol/L (-3-3) FiO2 40 Microbiology 12/07/16 Blood Culture - Final, Complete NO GROWTH AFTER 5 DAYS 12/07/16 Stool Culture - Final, Complete 12/07/16 Stool Culture Result 1 (NEFTALI) - Final, Complete 12/07/16 Campylobacter Antigen Assay - Final, Complete 12/07/16 Campylobactor Result 1 - Final, Complete 12/07/16 Shiga Toxin Test - Final, Complete 12/12/16 AFB Specimen Processing Tissue - Final, Resulted 12/12/16 Acid Fast Bacilli Culture, Resulted Pending 12/12/16 Gram Stain - Final, Resulted 12/12/16 Fungal Culture, Resulted Pending 12/12/16 Fungal Culture Result 1, Resulted Pending 12/12/16 Urine Culture - Final, Complete 12/12/16 Urine Culture Result 1 (NEFTLAI) - Final, Complete Medications Current Medications Ketorolac Tromethamine 30 mg 30 mg 1X ONCE IV Last administered on 12/07/16 14:34; Start 12/07/16 at 14:30; Stop 12/07/16 at 14:31; Status DC Sodium Chloride 1,000 ml @ 1,000 mls/hr 1X ONCE IV Last administered on 14:34; Start 12/07/16 at 14:30; Stop 12/07/16 at 15:29; Status DC Ceftriaxone Sodium 1 gm/ Sodium Chloride 50 ml @ 100 mls/hr Q24H IV ; Start at 15:30; Stop 12/08/16 at 15:30; Status DC Azithromycin 250 ml @ 250 mls/hr 1X ONCE IV Last administered on 12/07/16 15 :48; Start 12/07/16 at 15:15; Stop 12/07/16 at 16:14; Status DC Sodium Chloride 1,000 ml @ 1,000 mls/hr 1X ONCE IV Last administered on 16:09; Start 12/07/16 at 15:15; Stop 12/07/16 at 16:14; Status DC Ceftriaxone Sodium 50 ml @ 100 mls/hr 1X ONCE IV Last administered on 15:29; Start 12/07/16 at 15:15; Stop 12/07/16 at 15:44; Status DC Sodium Chloride (Iv Sodium Chloride 0.9% 1000ml Bag) 1,000 ml @ 150 mls/hr 1X ONCE IV Last administered on 12/07/16 18:10; Start 12/07/16 at 15:15; Stop 11/11 at 21:54; Status DC Famotidine (Pepcid) 20 mg 1X ONCE IVP Last administered on 12/07/16 15:48; Start 12/07/16 at 15:45; Stop 12/07/16 at 15:46; Status DC Ondansetron HCl 4 mg 4 mg 1X ONCE IV Last administered on 12/07/16 16:09; Start 12/07/16 at 16:15; Stop 12/07/16 at 16:16; Status DC Sodium Chloride (Iv Sodium Chloride 0.9% 1000ml Bag) 1,000 ml @ 150 mls/hr Q6H40M IV Last administered on 12/08/16 06:38; Start 12/07/16 at 16:30; Stop 12/08/16 at 14:21; Status DC Ondansetron HCl (Zofran) 4 mg PRN Q6HRS PRN IV NAUSEA/VOMITING; Start 12/07/16 at 16:30 Acetaminophen (Tylenol) 500 mg PRN Q6HRS PRN PO MILD PAIN / TEMP Last administered on 12/09/16 15:04; Start 12/07/16 at 16:30 Morphine Sulfate 2 mg PRN Q2HR PRN IV PAIN Last administered on 12/08/16 05:28 ; Start 12/07/16 at 16:30 Zolpidem Tartrate (Ambien) 5 mg PRN QHS PRN PO INSOMNIA Last administered on 01:06; Start 12/07/16 at 16:30; Stop 12/08/16 at 10:03; Status DC Methocarbamol (Robaxin) 500 mg QID PO Last administered on 12/07/16 21:19; Start 12/07/16 at 17:00; Stop 12/08/16 at 10:03; Status DC Oxycodone/ Acetaminophen (Percocet 5/325) 1 tab PRN Q4HRS PRN PO SEVERE PAIN; Start 12/07/16 at 16:30 Tramadol HCl (Ultram) 50 mg PRN Q6HRS PRN PO MODERATE PAIN Last administered on 12/07/16 17:11; Start 12/07/16 at 16:30 Nicotine (Nicoderm Cq 21mg) 1 patch PRN DAILY PRN TD SMOKING CESSATION; Start 12/07/16 at 16:30 Info (Do NOT chart on this placeholder) 1 each 1X ONCE MC ; Start 12/07/16 at 22:45; Stop 12/07/16 at 22:46; Status UNV Pneumococcal Polyvalent Vaccine (Do NOT chart on this placeholder) 1 each 1X ONCE MC ; Start 12/07/16 at 22:45; Stop 12/07/16 at 22:46; Status UNV Influenza Virus Vaccine Quadrival (Fluarix Quad [id number] Syringe) 0.5 ml ONCE ONCE VAX IM ; Start 12/08/16 at 09:00; Stop 12/08/16 at 09:01; Status DC Pneumococcal Polyvalent Vaccine (Pneumovax 23) 0.5 ml ONCE ONCE VAX IM ; Start 12/08/16 at 09:00; Stop 12/08/16 at 09:01; Status DC Labetalol HCl (Normodyne) 10 mg 1X ONCE IVP Last administered on 12/08/16 08: 56; Start 12/08/16 at 08:30; Stop 12/08/16 at 08:35; Status DC Alprazolam (Xanax) 0.5 mg 1X ONCE PO Last administered on 12/08/16 08:40; Start 12/08/16 at 08:45; Stop 12/08/16 at 08:46; Status DC Aspirin (Children'S Aspirin) 324 mg 1X ONCE PO Last administered on 12/08/16 13:44; Start 12/08/16 at 09:30; Stop 12/08/16 at 09:31; Status DC Aspirin (Jada Aspirin) 325 mg DAILYWBKFT PO ; Start 12/09/16 at 08:00; Stop at 08:00; Status DC Heparin Sodium (Porcine) 4000 unit 4,000 unit 1X ONCE IV ; Start 12/08/16 at 09 :30; Stop 12/08/16 at 14:21; Status DC Midazolam HCl 100 ml @ As Directed STK-MED ONCE IV ; Start 12/08/16 at 09:52; Stop 12/08/16 at 09:53; Status DC Propofol (Diprivan) 100 ml @ 0 mls/hr CONT PRN IV SEE I/O RECORD Last administered on 12/08/16 23:49; Start 12/08/16 at 10:00 Famotidine (Pepcid) 20 mg QHS IVP Last administered on 12/15/16 21:14; Start 12/08/16 at 21:00 Heparin Sodium (Porcine) 5000 unit 5,000 unit Q8HRS SQ ; Start 12/08/16 at 14:00 ; Stop 12/08/16 at 14:00; Status DC Norepinephrine Bitartrate 8 mg/ Sodium Chloride 258 ml @ 1.93 mls/hr CONT PRN IV SEE I/O RECORD; Start 12/08/16 at 10:15; Status Cancel Dopamine HCl/ Dextrose 250 ml @ As Directed STK-MED ONCE IV ; Start 12/08/16 at 10:07; Stop 12/08/16 at 10:08; Status DC Norepinephrine Bitartrate 8 mg/ Sodium Chloride 258 ml @ 0 mls/hr CONT PRN IV SEE I/O RECORD Last administered on 12/09/16 08:46; Start 12/08/16 at 10:15; Stop 12/09/16 at 11:47; Status DC Dopamine HCl/ Dextrose 250 ml @ 10.084 mls/ hr CONT PRN IV SEE I/O RECORD Last administered on 12/08/16 10:00; Start 12/08/16 at 10:15 Sodium Bicarbonate/ Sodium Chloride (Iv Sodium Chloride 0.45%) 1,050 ml @ 200 mls/hr Q5H15M IV Last administered on 12/09/16 05:11; Start 12/08/16 at 10:30 ; Stop 12/09/16 at 08:28; Status DC Phenylephrine HCl 1 mg STK-MED ONCE IV ; Start 12/08/16 at 10:25; Stop 12/08/16 at 10:26; Status DC Aspirin 300 mg 300 mg 1X ONCE OK ; Start 12/08/16 at 10:45; Stop 12/08/16 at 10 :46; Status DC Sodium Chloride 1,000 ml @ 1,000 mls/hr 1X ONCE IV Last administered on 10:00; Start 12/08/16 at 11:45; Stop 12/08/16 at 12:44; Status DC Sodium Chloride (Iv Sodium Chloride 0.9% 1000ml Bag) 1,000 ml @ 1,000 mls/hr 1X ONCE IV Last administered on 12/08/16 10:00; Start 12/08/16 at 11:45; Stop 12/08/16 at 12:44; Status DC Albuterol/ Ipratropium (Duoneb) 3 ml RTQID NEB Last administered on 12/08/16 19:44; Start 12/08/16 at 12:30; Stop 12/09/16 at 05:17; Status DC Budesonide 0.5 mg 0.5 mg RTBID NEB Last administered on 12/16/16 08:16; Start 12/08/16 at 12:30 Sodium Chloride 1,000 ml @ 1,000 mls/hr 1X ONCE IV Last administered on 11:00; Start 12/08/16 at 12:15; Stop 12/08/16 at 13:14; Status DC Sodium Chloride 1,000 ml @ 1,000 mls/hr 1X ONCE IV Last administered on 11:00; Start 12/08/16 at 12:15; Stop 12/08/16 at 13:14; Status DC Heparin Sodium/ Dextrose 500 ml @ 0 mls/hr CONT PRN IV SEE I/O RECORD Last administered on 12/09/16 13:11; Start 12/08/16 at 12:45; Stop 12/13/16 at 13:10 ; Status DC Heparin Sodium (Porcine) 1,350 unit PRN Q6HRS PRN IV FOR UFH LEVEL LESS THAN 0.2 Last administered on 12/09/16 05:47; Start 12/08/16 at 12:45; Stop at 13:10; Status DC Etomidate (Amidate) 20 mg STK-MED ONCE IV ; Start 12/08/16 at 13:00; Stop at 13:01; Status DC Succinylcholine Chloride 200 mg 200 mg STK-MED ONCE .ROUTE ; Start 12/08/16 at 13:00; Stop 12/08/16 at 13:01; Status DC Piperacillin Sod/ Tazobactam Sod 3.375 gm/Sodium Chloride 50 ml @ 100 mls/hr Q6HRS IV ; Start 12/08/16 at 18:00; Stop 12/08/16 at 18:00; Status DC Vancomycin HCl 1 gm/Sodium Chloride 250 ml @ 250 mls/hr 1X ONCE IV Last administered on 12/08/16 14:21; Start 12/08/16 at 14:00; Stop 12/08/16 at 14:59 ; Status DC Piperacillin Sod/ Tazobactam Sod 2.25 gm/Sodium Chloride 50 ml @ 100 mls/hr Q6HRS IV Last administered on 12/09/16 06:17; Start 12/08/16 at 14:00; Stop at 08:25; Status DC Midazolam HCl 100 ml @ 0 mls/hr CONT PRN IV SEE I/O RECORD Last administered on 12/16/16 06:08; Start 12/08/16 at 10:30 Fentanyl Citrate (Fentanyl 600 Mcg/30 ml FIELD SCOUT) 30 ml @ 0 mls/hr CONT PRN IV PROTOCOL Last administered on 12/16/16 06:09; Start 12/09/16 at 05:15 Fentanyl Citrate (Fentanyl 2ml Vial) 25 mcg PRN Q1HR PRN IV COMM; Start at 05:15 Fentanyl Citrate (Fentanyl 2ml Vial) 50 mcg PRN Q1HR PRN IV COMM; Start at 05:15 Ipratropium Russell (Atrovent) 0.5 mg RTQID NEB Last administered on 12/16/16 11:34; Start 12/09/16 at 08:00 Aspirin (Children'S Aspirin) 81 mg DAILYWBKFT PO Last administered on 08:00; Start 12/09/16 at 08:00 Chlorhexidine Gluconate 15 ml 15 ml BID MM Last administered on 12/16/16 08:21 ; Start 12/09/16 at 09:00 Sodium Bicarbonate 150 meq/Dextrose 1,150 ml @ 100 mls/hr [id number] IV Last administered on 12/10/16 09:34; Start 12/09/16 at 09:00; Stop 12/10/16 at 12:14 ; Status DC Piperacillin Sod/ Tazobactam Sod 3.375 gm/Sodium Chloride 50 ml @ 100 mls/hr Q6HRS IV Last administered on 12/11/16 06:01; Start 12/09/16 at 12:00; Stop at 07:47; Status DC Norepinephrine Bitartrate 16 mg/ Sodium Chloride 266 ml @ 0.99 mls/hr CONT PRN IV SEE I/O RECORD Last administered on 12/09/16 20:36; Start 12/09/16 at 12 :00 Doxycycline Hyclate/Dextrose 100 ml @ 50 mls/hr Q12HR IV Last administered on 12/13/16 20:50; Start 12/09/16 at 13:00; Stop 12/14/16 at 08:34; Status DC Atropine Sulfate 0.5 mg STK-MED ONCE .ROUTE ; Start 12/08/16 at 10:30; Stop at 13:18; Status DC Epinephrine HCl 3 mg STK-MED ONCE .ROUTE ; Start 12/08/16 at 10:30; Stop at 13:18; Status DC Calcium Gluconate 1000 mg 1,000 mg 1X ONCE IVP ; Start 12/10/16 at 10:00; Stop 12/10/16 at 10:01; Status UNV Magnesium Sulfate/ Dextrose 50 ml @ 25 mls/hr 1X ONCE IV Last administered on 12/10/16 11:40; Start 12/10/16 at 12:00; Stop 12/10/16 at 13:59; Status DC Calcium Gluconate 1000 mg/Sodium Chloride 110 ml @ 220 mls/hr 1X ONCE IV Last administered on 12/10/16 11:36; Start 12/10/16 at 12:00; Stop 12/10/16 at 12:29; Status DC Magnesium Sulfate/ Dextrose 50 ml @ 25 mls/hr PRN DAILY PRN IV for Mag < 1.7 on am labs; Start 12/10/16 at 12:15; Stop 12/13/16 at 09:57; Status DC Amino Acids/ Glycerin/ Electrolytes 1,000 ml @ 80 mls/hr [id number] IV ; Start at 12:30; Stop 12/10/16 at 12:30; Status DC Albumin Human (Albuminar) 100 ml @ 100 mls/hr TID IV ; Start 12/10/16 at 14:00 ; Stop 12/10/16 at 14:00; Status DC Calcium Gluconate 2000 mg 2,000 mg TID IVP ; Start 12/10/16 at 14:00; Stop 12/10 at 14:00; Status DC Piperacillin Sod/ Tazobactam Sod 2.25 gm/Sodium Chloride 50 ml @ 100 mls/hr Q6HRS IV Last administered on 12/16/16 06:08; Start 12/11/16 at 12:00 Linezolid (Zyvox Premix) 300 ml @ 300 mls/hr Q12HR IV Last administered on 08:21; Start 12/11/16 at 09:00 Info 1 each 1 each PRN DAILY PRN MC SEE COMMENTS Last administered on 08:21; Start 12/11/16 at 08:15; Stop 12/13/16 at 13:13; Status DC Potassium Phosphate/Sodium Chloride (Potassium Phosphate/Iv Sodium Chloride 0.9 % 100ml) 104.5333 ml @ 52.267 m... Q2H IV Last administered on 12/11/16 17:22 ; Start 12/11/16 at 09:00; Stop 12/11/16 at 14:59; Status DC Furosemide 20 mg 20 mg 1X ONCE IVP Last administered on 12/11/16 11:10; Start 12/11/16 at 10:00; Stop 12/11/16 at 10:03; Status DC Dobutamine HCl/ Dextrose 250 ml @ 0 mls/hr CONT PRN IV SEE I/O RECORD Last administered on 12/11/16 15:05; Start 12/11/16 at 14:45 Magnesium Sulfate/ Dextrose 50 ml @ 25 mls/hr PRN DAILY PRN IV for Mag < 1.7 on am labs; Start 12/12/16 at 08:45; Stop 12/13/16 at 09:57; Status DC Potassium Chloride 50 ml @ 50 mls/hr PRN Q6HRS PRN IV For K < 3.7; Start at 08:45; Stop 12/13/16 at 09:57; Status DC Potassium Chloride (KCl Premix 20meq) 50 ml @ 50 mls/hr PRN Q2HR PRN IV total of 40mEq for K < 3.5; Start 12/12/16 at 08:45; Stop 12/13/16 at 09:57; Status DC Acetylcysteine 1200 mg 1,200 mg BID PO Last administered on 12/13/16 20:50; Start 12/12/16 at 09:00; Stop 12/14/16 at 08:17; Status DC Potassium Chloride (KCl Premix 20meq) 50 ml @ 50 mls/hr Q1H IV Last administered on 12/12/16 13:16; Start 12/12/16 at 09:00; Stop 12/12/16 at 10:59 ; Status DC Lidocaine/Sodium Bicarbonate 20 ml 20 ml STK-MED ONCE IJ ; Start 12/12/16 at 12: 13; Stop 12/12/16 at 12:14; Status DC Heparin Sodium/ Sodium Chloride 500 ml @ As Directed STK-MED ONCE .ROUTE ; Start 12/12/16 at 12:14; Stop 12/12/16 at 12:15; Status DC Lidocaine/Sodium Bicarbonate (Buffered Lidocaine 1%) 3 ml 1X ONCE IJ Last administered on 12/12/16 13:08; Start 12/12/16 at 12:15; Stop 12/12/16 at 12:17 ; Status DC Heparin Sodium (Porcine) 2,500 unit 1X ONCE INT CAT Last administered on 13:08; Start 12/12/16 at 12:15; Stop 12/12/16 at 12:17; Status DC Heparin Sodium/ Sodium Chloride 60 unit 60 unit 1X ONCE IV Last administered on 12/12/16 12:15; Start 12/12/16 at 12:15; Stop 12/12/16 at 12:17; Status DC Heparin Sodium/ Sodium Chloride 1,500 ml @ As Directed STK-MED ONCE .ROUTE ; Start 12/12/16 at 15:03; Stop 12/12/16 at 15:04; Status DC Lidocaine HCl 20 ml STK-MED ONCE .ROUTE ; Start 12/12/16 at 15:03; Stop at 15:04; Status DC Iodixanol (Visipaque 320) 100 ml STK-MED ONCE .ROUTE ; Start 12/12/16 at 15:04; Stop 12/12/16 at 15:05; Status DC Heparin Sodium/ Sodium Chloride 1,000 unit 1X ONCE IART Last administered on 15:41; Start 12/12/16 at 15:30; Stop 12/12/16 at 15:32; Status DC Iodixanol (Visipaque 320) 100 ml 1X ONCE IART Last administered on 12/12/16 15:41; Start 12/12/16 at 15:30; Stop 12/12/16 at 15:32; Status DC Lidocaine HCl 4 ml 4 ml 1X ONCE IJ Last administered on 12/12/16 15:41; Start 12/12/16 at 15:30; Stop 12/12/16 at 15:32; Status DC Potassium Chloride 50 ml @ 50 mls/hr 1X ONCE IV Last administered on 04:13; Start 12/13/16 at 04:15; Stop 12/13/16 at 05:14; Status DC Potassium Chloride 50 ml @ 50 mls/hr 1X ONCE IV Last administered on 03:13; Start 12/13/16 at 03:15; Stop 12/13/16 at 04:14; Status DC Potassium Chloride 50 ml @ 50 mls/hr Q1H IV ; Start 12/13/16 at 09:00; Stop at 09:00; Status DC Furosemide 100 mg/ Sodium Chloride 100 ml @ 0 mls/hr CONT PRN IV SEE I/O RECORD Last administered on 12/13/16 11:43; Start 12/13/16 at 10:00; Stop 12/14 at 08:17; Status DC Magnesium Sulfate/ Dextrose 50 ml @ 25 mls/hr PRN DAILY PRN IV for Mag < 1.7 on am labs; Start 12/13/16 at 10:00 Potassium Chloride 50 ml @ 50 mls/hr PRN Q6HRS PRN IV For K < 3.7 Last administered on 12/15/16 01:08; Start 12/13/16 at 10:00 Potassium Chloride 50 ml @ 50 mls/hr PRN Q2HR PRN IV total of 40mEq for K < 3.5; Start 12/13/16 at 10:00 Potassium Phosphate 40 mmol/ Sodium Chloride 113.3333 ml @ 52.267 m... PRN 1X PRN IV SEE COMMENTS; Start 12/13/16 at 10:00; Stop 12/13/16 at 23:59; Status DC Sodium Chloride 1,000 ml @ 1,000 mls/hr Q1H PRN IV hypotension; Start 12/13/16 at 14:51; Stop 12/13/16 at 20:50; Status DC Sodium Chloride (Iv Sodium Chloride 0.9% 1000ml Bag) 1,000 ml @ 400 mls/hr Q2H30M PRN IV PATENCY; Start 12/13/16 at 14:51; Stop 12/14/16 at 02:50; Status DC Info (PHARMACY MONITORING -- do not chart) 1 each PRN DAILY PRN MC SEE COMMENTS ; Start 12/13/16 at 15:00; Status UNV Info 1 each 1 each PRN DAILY PRN MC SEE COMMENTS; Start 12/13/16 at 15:00; Stop 12/15/16 at 08:35; Status DC Sodium Phosphate 0.4 mmol/Dextrose 1 ml @ 50 mls/hr BID IV ; Start 12/14/16 at 09:00; Status UNV Albumin Human (Albuminar) 100 ml @ 100 mls/hr TID IV Last administered on 12/15 21:14; Start 12/14/16 at 09:00; Stop 12/15/16 at 21:59; Status DC Darbepoetin Koffi 60 mcg 60 mcg WEEKLYHS SQ Last administered on 12/14/16 21:07 ; Start 12/14/16 at 21:00 Sodium Phosphate/ Dextrose 113.3333 ml @ 28.333 m... Q4H IV Last administered on 12/14/16 14:59; Start 12/14/16 at 09:00; Stop 12/14/16 at 16:59; Status DC Info (PHARMACY MONITORING -- do not chart) 1 each PRN DAILY PRN MC SEE COMMENTS ; Start 12/14/16 at 11:00; Status UNV Info 1 each 1 each PRN DAILY PRN MC SEE COMMENTS; Start 12/14/16 at 11:00; Status UNV Albumin Human 200 ml @ 200 mls/hr 1X PRN PRN IV Hypotension; Start 12/14/16 at 13:30; Stop 12/14/16 at 19:00; Status DC Sodium Chloride 1,000 ml @ 1,000 mls/hr Q1H PRN IV hypotension; Start 12/15/16 at 06:32; Stop 12/15/16 at 09:09; Status DC Albumin Human 200 ml @ 200 mls/hr 1X PRN PRN IV Hypotension Last administered on 12/15/16 07:38; Start 12/15/16 at 06:45; Stop 12/15/16 at 12:44; Status DC Sodium Chloride (Iv Sodium Chloride 0.9% 1000ml Bag) 1,000 ml @ 400 mls/hr Q2H30M PRN IV PATENCY; Start 12/15/16 at 06:32; Stop 12/15/16 at 18:31; Status DC Info 1 each 1 each PRN DAILY PRN MC SEE COMMENTS; Start 12/15/16 at 06:45 Piperacillin Sod/ Tazobactam Sod 2.25 gm/Sodium Chloride 50 ml @ 100 mls/hr Q8HRS IV ; Start 12/15/16 at 14:00; Stop 12/15/16 at 14:00; Status DC Piperacillin Sod/ Tazobactam Sod 2.25 gm/Sodium Chloride 50 ml @ 100 mls/hr Q6HRS IV ; Start 12/15/16 at 12:00; Status Cancel Dexmedetomidine HCl 200 mcg/ Sodium Chloride 50 ml @ 0 mls/hr CONT PRN IV PER PROTOCOL; Start 12/16/16 at 12:15 Sodium Chloride (Iv Sodium Chloride 0.9% 500ml Bag) 500 ml @ 500 mls/hr 1X PRN PRN IV SEE COMMENTS; Start 12/16/16 at 12:15 Atropine Sulfate 0.5 mg PRN Q5MIN PRN IV SEE COMMENTS; Start 12/16/16 at 12:15 Active Scripts Active Ultram (Tramadol Hcl) 50 Mg Tablet 50 Mg PO Q6H PRN Robaxin (Methocarbamol) 500 Mg Tablet 500 Mg PO QID Reported Percocet 5-325 Mg Tablet (Oxycodone/Acetaminophen) 1 Each Tablet 1-2 Tab PO Q4HRS Vitals/I & O Vital Sign - Last 24 Hours 12/15/16 12/15/16 12/15/16 12/15/16 12:52 13:00 14:00 15:00 Pulse 84 82 90 B/P 119/80 121/76 119/80 Pulse Ox 99 100 100 100 O2 Delivery Ventilator Ventilator Ventilator Ventilator 12/15/16 12/15/16 12/15/16 12/15/16 15:22 16:00 16:00 16:51 Temp 98.1 98.1 Pulse 88 B/P 108/66 Pulse Ox 97 100 98 O2 Delivery Ventilator Ventilator Mechanical Ventilator Ventilator 12/15/16 12/15/16 12/15/16 12/15/16 17:00 18:00 19:00 20:00 Pulse 86 80 83 Resp 18 B/P 121/79 11/79 124/77 Pulse Ox 100 100 98 O2 Delivery Ventilator Ventilator Ventilator Mechanical Ventilator 12/15/16 12/15/16 12/15/16 12/15/16 20:00 20:13 20:38 21:00 Temp 98.7 98.7 Pulse 85 86 Resp 18 28 18 B/P 123/79 115/71 Pulse Ox 98 99 99 99 O2 Delivery Ventilator Ventilator Ventilator Ventilator 12/15/16 12/15/16 12/15/16 12/16/16 22:00 23:00 23:06 00:00 Pulse 83 80 Resp 18 18 B/P 106/66 116/70 Pulse Ox 98 98 98 O2 Delivery Ventilator Ventilator Ventilator Mechanical Ventilator 12/16/16 12/16/16 12/16/16 12/16/16 00:00 01:00 01:36 02:00 Temp 98.7 98.7 Pulse 84 79 77 Resp 18 18 18 B/P 113/70 122/72 119/75 Pulse Ox 99 98 98 98 O2 Delivery Ventilator Ventilator Ventilator Ventilator 12/16/16 12/16/16 12/16/16 12/16/16 03:00 04:00 04:00 04:09 Temp 98.2 98.2 Pulse 81 80 Resp 18 18 B/P 122/78 120/84 Pulse Ox 99 99 99 O2 Delivery Ventilator Ventilator Mechanical Ventilator Ventilator 12/16/16 12/16/16 12/16/16 12/16/16 05:00 06:00 06:09 06:41 Pulse 81 80 Resp 18 18 18 18 B/P 132/83 140/83 Pulse Ox 98 98 99 99 O2 Delivery Ventilator Ventilator Ventilator Ventilator 12/16/16 12/16/16 12/16/16 12/16/16 07:00 08:00 08:00 08:15 Temp 98.1 98.1 Pulse 77 78 Resp 26 26 B/P 117/73 123/78 Pulse Ox 98 98 99 O2 Delivery Ventilator Mechanical Ventilator Ventilator Ventilator 12/16/16 12/16/16 12/16/16 12/16/16 09:00 10:00 11:00 11:35 Pulse 114 85 82 Resp 26 B/P 207/128 119/73 105/65 Pulse Ox 97 100 100 99 O2 Delivery Ventilator Ventilator Ventilator Ventilator Intake and Output 12/15/16 12/15/1617 15:00 23:00 07:00 Intake Total 1170 ml 1838 ml 901.1 ml Output Total 425 ml 985 ml 650 ml Balance 745 ml 853 ml 251.1 ml MAGNO CHAPARRO III DO Dec 16, 2016 12:50
[2016-12-16] MEDS: DEXMEDETOMIDINE 200 MCG in IV NORMAL SALINE 50ML 48 ML IV PRN ×2 (14:15→18:00)
[2016-12-16 19:44] LABS: FIO2 ABG 100; HCO3 ABG 29 mmol/L (21-28); PCO2 ABG 46 mmHg (35-46); PH ABG 7.42 (7.35-7.45); PO2 ABG 162 mmHg (75-108); SAT O2 ABG 99 % (92-99)
[2016-12-16] MEDS ORDERED: IV NORMAL SALINE 1000ML BAG 1,000 ML IV PRN ×2 (20:04)
--- NOTE | 2016-12-16 20:12 | RAD ---
Portable chest, 12/16/2016: HISTORY Decompensation Comparison is made to yesterday's study. An ET tube is in place with its tip located well above the corey. An NG tube extends into the stomach. The right PICC and right jugular dialysis type catheters are unchanged in positions. The heart size is unchanged. There are moderate bilateral pulmonary infiltrates with obscuration of the underlying pulmonary vascularity. These appear to have worsened slightly. The hemidiaphragms are obscured. There is pleural fluid contributing to the basilar opacities. There is no evidence of pneumothorax. IMPRESSION 1. Slight interval worsening of the moderate bilateral pulmonary infiltrates compatible with pulmonary edema and/or pneumonia. 2. Small bilateral pleural effusions. Electronically signed by: Cirilo Rai MD (Dec 16, 2016 20:11:50)
[2016-12-16] MEDS ORDERED: DIALYSIS PATIENT. MC PRN ×2 (20:15)
[2016-12-16] MEDS ORDERED: 0.9 % SODIUM CHLORIDE 10 ML DISP.SYRIN. IV PRN ×2 (20:15)
[2016-12-16] MEDS ORDERED: ALBUMIN HUMAN 25% 200 ML IV PRN (20:15)
[2016-12-17] VITALS (24 sets, daily range): BP systolic 91–165; BP diastolic 58–96
[2016-12-17] MEDS: PIPERACILLIN/TAZOBACTAM 2.25 GM in IV NORMAL SALINE 50ML 50 ML IV SCH ×4 (00:07→17:11)
[2016-12-17] MEDS: FAMOTIDINE 20 MG/2 ML VIAL IVP SCH ×2 (00:07→21:24)
[2016-12-17] MEDS: CHLORHEXIDINE 0.12% 15 ML MOUTHWASH. MM SCH ×3 (00:07→21:23)
[2016-12-17] MEDS: DEXMEDETOMIDINE 200 MCG in IV NORMAL SALINE 50ML 48 ML IV PRN ×6 (02:28→18:11)
[2016-12-17] MEDS: MIDAZOLAM PREMIX 100 ML IV PRN (04:53)
[2016-12-17] MEDS: FENTANYL STANDARD PCA 30 ML IV PRN (04:54)
[2016-12-17 05:14] LABS: BASO # 0.1 x10^3/uL (0.0-0.2); BASO % 1 % (0-3); EOS % 1 % (0-3); HEMATOCRIT 25.5 % (39.0-53.0); HEMOGLOBIN 8.2 g/dL (13.0-17.5); LYMPH # 1.8 x10^3/uL (1.0-4.8); LYMPH % 11 % (24-48); MEAN CORPUSCULAR HEMOGLOBIN 30 pg (25-35); MEAN CORPUSCULAR HGB CONC 32 g/dL (31-37); MEAN CORPUSCULAR VOLUME 92 fL (79-100); MONO % 16 % (0-9); NEUT % 72 % (31-73); PLATELET COUNT 334 x10^3/uL (140-400); RED BLOOD COUNT 2.78 x10^6/uL (4.30-5.70); RED CELL DISTRIBUTION WIDTH 14.1 % (11.5-14.5); WHITE BLOOD COUNT 17.2 x10^3/uL (4.0-11.0)
[2016-12-17 05:41] LABS: ALBUMIN 2.9 g/dL (3.4-5.0); CALCIUM 8.2 mg/dL (8.5-10.1); CREATININE 1.7 mg/dL (0.7-1.3); GFR 52.1; PHOSPHORUS 2.3 mg/dL (2.6-4.7)
[2016-12-17] MEDS: IPRATROPIUM BROMIDE 0.5 MG/2.5 ML NEBU. NEB SCH ×4 (08:09→20:45)
[2016-12-17] MEDS: BUDESONIDE 0.5 MG/2 ML NEBU NEB SCH ×2 (08:09→15:40)
[2016-12-17] MEDS: ASPIRIN 81 MG TAB.CHEW PO SCH (08:37)
[2016-12-17 08:38] LABS: HCO3 ABG 31 mmol/L (21-28); PCO2 ABG 48 mmHg (35-46); PH ABG 7.43 (7.35-7.45); PO2 ABG 57 mmHg (75-108)
--- NOTE | 2016-12-17 09:23 | PDOC ---
PULMONARY PROGRESS NOTES Subjective No overnight events. HR& HTN with sedation vacation. Continues on ventilatory support. Plans for HD today Vitals Vital Signs Date Time Temp Pulse Resp B/P Pulse Ox O2 Delivery O2 Flow Rate FiO2 12/17/16 09:00 34 144/81 97 Ventilator 12/17/16 08:00 97.1 65 97.1 12/17/16 04:54 4.0 Comments ros as mentioned as above discussed w rn, off sedation agitated. General: No acute distress HEENT: Other (nc at perrl, orally intubated) Lungs: Other (Decrease bs; Rhonchi) Cardiovascular: S1, S2 Abdomen: Soft, Non-tender, Other (no mass) Extremities: No Edema Skin: Warm, Dry, No Rashes Labs Laboratory Tests Test 12/15/16 12:02 12/15/16 17:51 12/16/16 06:10 12/16/16 08:00 Glucose (Fingerstick) 100mg/dL (70-99) 133mg/dL (70-99) White Blood Count 16.1x10^3/uL (4.0-11.0) Red Blood Count 2.54x10^6/uL (4.30-5.70) Hemoglobin 7.5g/dL (13.0-17.5) Hematocrit 23.1% (39.0-53.0) Mean Corpuscular Volume 91fL (79-100) Mean Corpuscular Hemoglobin 30pg (25-35) Mean Corpuscular Hemoglobin Concent 33g/dL (31-37) Red Cell Distribution Width 14.1% (11.5-14.5) Platelet Count 324x10^3/uL (140-400) Neutrophils (%) (Auto) 78% (31-73) Lymphocytes (%) (Auto) 7% (24-48) Monocytes (%) (Auto) 14% (0-9) Eosinophils (%) (Auto) 1% (0-3) Basophils (%) (Auto) 0% (0-3) Neutrophils # (Auto) 12.7x10^3uL (1.8-7.7) Lymphocytes # (Auto) 1.0x10^3/uL (1.0-4.8) Monocytes # (Auto) 2.2x10^3/uL (0.0-1.1) Eosinophils # (Auto) 0.1x10^3/uL (0.0-0.7) Basophils # (Auto) 0.1x10^3/uL (0.0-0.2) Segmented Neutrophils % 78% (35-66) Band Neutrophils % 4% (0-9) Lymphocytes % 8% (24-48) Atypical Lymphocytes % (Manual) 1% (0-0) Monocytes % 6% (0-10) Eosinophils % 2% (0-5) Myelocytes % 1% (0-0) Platelet Estimate Adequate (ADEQUATE) Sodium Level 145mmol/L (136-145) Potassium Level 4.2mmol/L (3.5-5.1) Chloride Level 107mmol/L (98-107) Carbon Dioxide Level 29mmol/L (21-32) Anion Gap 9 (6-14) Blood Urea Nitrogen 17mg/dL (8-26) Creatinine 2.2mg/dL (0.7-1.3) Estimated GFR (Cockcroft-Gault) 38.7 Glucose Level 92mg/dL (70-99) Calcium Level 8.1mg/dL (8.5-10.1) Phosphorus Level 2.9mg/dL (2.6-4.7) Creatine Kinase 193U/L (39-308) Albumin 2.8g/dL (3.4-5.0) O2 Saturation 93% (92-99) Arterial Blood pH 7.49 (7.35-7.45) Arterial Blood pCO2 at Patient Temp 37mmHg (35-46) Arterial Blood pO2 at Patient Temp 67mmHg (75-108) Arterial Blood HCO3 27mmol/L (21-28) Arterial Blood Base Excess 4mmol/L (-3-3) FiO2 40 Test 12/16/16 12:00 12/16/16 12:19 12/16/16 17:50 12/16/16 18:28 Potassium Level 4.5mmol/L (3.5-5.1) 4.5mmol/L (3.5-5.1) Glucose (Fingerstick) 113mg/dL (70-99) 115mg/dL (70-99) Test 12/16/16 19:30 12/17/16 05:00 12/17/16 08:25 O2 Saturation 99% (92-99) Arterial Blood pH 7.42 (7.35-7.45) Arterial Blood pCO2 at Patient Temp 46mmHg (35-46) Arterial Blood pO2 at Patient Temp 162mmHg (75-108) Arterial Blood HCO3 29mmol/L (21-28) Arterial Blood Base Excess 5mmol/L (-3-3) FiO2 100 White Blood Count 17.2x10^3/uL (4.0-11.0) Red Blood Count 2.78x10^6/uL (4.30-5.70) Hemoglobin 8.2g/dL (13.0-17.5) Hematocrit 25.5% (39.0-53.0) Mean Corpuscular Volume 92fL (79-100) Mean Corpuscular Hemoglobin 30pg (25-35) Mean Corpuscular Hemoglobin Concent 32g/dL (31-37) Red Cell Distribution Width 14.1% (11.5-14.5) Platelet Count 334x10^3/uL (140-400) Neutrophils (%) (Auto) 72% (31-73) Lymphocytes (%) (Auto) 11% (24-48) Monocytes (%) (Auto) 16% (0-9) Eosinophils (%) (Auto) 1% (0-3) Basophils (%) (Auto) 1% (0-3) Neutrophils # (Auto) 12.3x10^3uL (1.8-7.7) Lymphocytes # (Auto) 1.8x10^3/uL (1.0-4.8) Monocytes # (Auto) 2.7x10^3/uL (0.0-1.1) Eosinophils # (Auto) 0.2x10^3/uL (0.0-0.7) Basophils # (Auto) 0.1x10^3/uL (0.0-0.2) Sodium Level 141mmol/L (136-145) Potassium Level 4.0mmol/L (3.5-5.1) Chloride Level 103mmol/L (98-107) Carbon Dioxide Level 31mmol/L (21-32) Anion Gap 7 (6-14) Blood Urea Nitrogen 14mg/dL (8-26) Creatinine 1.7mg/dL (0.7-1.3) Estimated GFR (Cockcroft-Gault) 52.1 Glucose Level 116mg/dL (70-99) Calcium Level 8.2mg/dL (8.5-10.1) Phosphorus Level 2.3mg/dL (2.6-4.7) Creatine Kinase 165U/L (39-308) Albumin 2.9g/dL (3.4-5.0) Glucose (Fingerstick) 119mg/dL (70-99) Laboratory Tests Test 12/16/16 12:00 12/16/16 12:19 12/16/16 17:50 12/16/16 18:28 Potassium Level 4.5mmol/L (3.5-5.1) 4.5mmol/L (3.5-5.1) Glucose (Fingerstick) 113mg/dL (70-99) 115mg/dL (70-99) Test 12/16/16 19:30 12/17/16 05:00 12/17/16 08:25 O2 Saturation 99% (92-99) Arterial Blood pH 7.42 (7.35-7.45) Arterial Blood pCO2 at Patient Temp 46mmHg (35-46) Arterial Blood pO2 at Patient Temp 162mmHg (75-108) Arterial Blood HCO3 29mmol/L (21-28) Arterial Blood Base Excess 5mmol/L (-3-3) FiO2 100 White Blood Count 17.2x10^3/uL (4.0-11.0) Red Blood Count 2.78x10^6/uL (4.30-5.70) Hemoglobin 8.2g/dL (13.0-17.5) Hematocrit 25.5% (39.0-53.0) Mean Corpuscular Volume 92fL (79-100) Mean Corpuscular Hemoglobin 30pg (25-35) Mean Corpuscular Hemoglobin Concent 32g/dL (31-37) Red Cell Distribution Width 14.1% (11.5-14.5) Platelet Count 334x10^3/uL (140-400) Neutrophils (%) (Auto) 72% (31-73) Lymphocytes (%) (Auto) 11% (24-48) Monocytes (%) (Auto) 16% (0-9) Eosinophils (%) (Auto) 1% (0-3) Basophils (%) (Auto) 1% (0-3) Neutrophils # (Auto) 12.3x10^3uL (1.8-7.7) Lymphocytes # (Auto) 1.8x10^3/uL (1.0-4.8) Monocytes # (Auto) 2.7x10^3/uL (0.0-1.1) Eosinophils # (Auto) 0.2x10^3/uL (0.0-0.7) Basophils # (Auto) 0.1x10^3/uL (0.0-0.2) Sodium Level 141mmol/L (136-145) Potassium Level 4.0mmol/L (3.5-5.1) Chloride Level 103mmol/L (98-107) Carbon Dioxide Level 31mmol/L (21-32) Anion Gap 7 (6-14) Blood Urea Nitrogen 14mg/dL (8-26) Creatinine 1.7mg/dL (0.7-1.3) Estimated GFR (Cockcroft-Gault) 52.1 Glucose Level 116mg/dL (70-99) Calcium Level 8.2mg/dL (8.5-10.1) Phosphorus Level 2.3mg/dL (2.6-4.7) Creatine Kinase 165U/L (39-308) Albumin 2.9g/dL (3.4-5.0) Glucose (Fingerstick) 119mg/dL (70-99) Medications Active Scripts Medications Dose Route/Sig Days Date Category Percocet 5-325 Mg Tablet (Oxycodone/Acetaminophen) 1 Each Tablet 1-2 Tab PO Q4HRS 05/25/16 Reported Ultram (Tramadol Hcl) 50 Mg Tablet 50 Mg PO Q6H PRN 05/22/16 Rx Robaxin (Methocarbamol) 500 Mg Tablet 500 Mg PO QID 05/22/16 Rx Comments cxr reviewed 12/15 worsening bilateral infiltrates c/w CHF Impression . 1. Acute hypoxemic respiratory failure, multifactorial in etiology.(septic shock, CHF, Metabolic acidosis, Renal failure,Possible pneumonia) 2. worsening bilateral infiltrates, suspect persistent CHF/ less likely Pneumonia 3. CMP (EF 30%)/ cath findings c/w CHF 4. Septic shock POA.off pressors 5. Acute kidney injury. 6. Smoker. 7. History of drug abuse. 8. Status post cardiopulmonary arrest. 9. Hypotension.off pressors 10.Metabolic acidosis, improving 11. s/ p cath the Right Atrial Pressure is 20 mmHg. The Right Ventricular Pressure is 50/30 mmHg. The Pulmonary Artery Pressure is 50/29 mmHg. The Pulmonary Catheter Wedge Pressure is 25 mmHg. LVEDP 30. This is c/w ongoing CHF Plan . 1. AC, Peep 5, RR 16, and ventilatory parameters improving - will trial precidex gtt to control anxiety as sedation lightened. 2. Wean sedation / CPAP trial once awake 3. Bronchodilator, 4. s/p Bronch , severe tracheitis, Negative cultures so far 5. ID recommendations 6. Continue abx 7. Pepcid and heparin for stress ulcer and DVT prophylaxis. 8. Urine for legionella and strep pneumonia antigen, neg. 9. Urine drug screen, pos.for cocaine 10.Follow Cardiology and nephrology recommendations. Cath 11. HD to continue per nephrology - noted plans for HD today ANDREW SANHCEZ MD Dec 17, 2016 09:23
--- NOTE | 2016-12-17 10:12 | PDOC ---
PULMONARY PROGRESS NOTES Subjective Increased Dyspnea, and Hypoxemia overnight - IMPROVED after HD last evening. CXR obtained with worsening vascularity congestion, which this also was prior to HD. Afebrile. Continues on ventilatory support. Trialling this Am. Vitals Vital Signs Date Time Temp Pulse Resp B/P Pulse Ox O2 Delivery O2 Flow Rate FiO2 12/17/16 09:00 34 144/81 97 Ventilator 12/17/16 08:00 97.1 65 97.1 12/17/16 04:54 4.0 Comments ros as mentioned as above discussed w rn, off sedation agitated. ROS: No Nausea, No Chest Pain, No Abdominal Pain General: Alert, No acute distress HEENT: Other (nc at perrl, orally intubated) Lungs: Crackles, Other (No appreciated wheezing. No accessory muscle use) Cardiovascular: S1, S2 Abdomen: Soft, Non-tender, Other (no mass) Neuro Exam: Alert Extremities: No Edema Skin: Warm, Dry, No Rashes Labs Laboratory Tests Test 12/15/16 12:02 12/15/16 17:51 12/16/16 06:10 12/16/16 08:00 Glucose (Fingerstick) 100mg/dL (70-99) 133mg/dL (70-99) White Blood Count 16.1x10^3/uL (4.0-11.0) Red Blood Count 2.54x10^6/uL (4.30-5.70) Hemoglobin 7.5g/dL (13.0-17.5) Hematocrit 23.1% (39.0-53.0) Mean Corpuscular Volume 91fL (79-100) Mean Corpuscular Hemoglobin 30pg (25-35) Mean Corpuscular Hemoglobin Concent 33g/dL (31-37) Red Cell Distribution Width 14.1% (11.5-14.5) Platelet Count 324x10^3/uL (140-400) Neutrophils (%) (Auto) 78% (31-73) Lymphocytes (%) (Auto) 7% (24-48) Monocytes (%) (Auto) 14% (0-9) Eosinophils (%) (Auto) 1% (0-3) Basophils (%) (Auto) 0% (0-3) Neutrophils # (Auto) 12.7x10^3uL (1.8-7.7) Lymphocytes # (Auto) 1.0x10^3/uL (1.0-4.8) Monocytes # (Auto) 2.2x10^3/uL (0.0-1.1) Eosinophils # (Auto) 0.1x10^3/uL (0.0-0.7) Basophils # (Auto) 0.1x10^3/uL (0.0-0.2) Segmented Neutrophils % 78% (35-66) Band Neutrophils % 4% (0-9) Lymphocytes % 8% (24-48) Atypical Lymphocytes % (Manual) 1% (0-0) Monocytes % 6% (0-10) Eosinophils % 2% (0-5) Myelocytes % 1% (0-0) Platelet Estimate Adequate (ADEQUATE) Sodium Level 145mmol/L (136-145) Potassium Level 4.2mmol/L (3.5-5.1) Chloride Level 107mmol/L (98-107) Carbon Dioxide Level 29mmol/L (21-32) Anion Gap 9 (6-14) Blood Urea Nitrogen 17mg/dL (8-26) Creatinine 2.2mg/dL (0.7-1.3) Estimated GFR (Cockcroft-Gault) 38.7 Glucose Level 92mg/dL (70-99) Calcium Level 8.1mg/dL (8.5-10.1) Phosphorus Level 2.9mg/dL (2.6-4.7) Creatine Kinase 193U/L (39-308) Albumin 2.8g/dL (3.4-5.0) O2 Saturation 93% (92-99) Arterial Blood pH 7.49 (7.35-7.45) Arterial Blood pCO2 at Patient Temp 37mmHg (35-46) Arterial Blood pO2 at Patient Temp 67mmHg (75-108) Arterial Blood HCO3 27mmol/L (21-28) Arterial Blood Base Excess 4mmol/L (-3-3) FiO2 40 Test 12/16/16 12:00 12/16/16 12:19 12/16/16 17:50 12/16/16 18:28 Potassium Level 4.5mmol/L (3.5-5.1) 4.5mmol/L (3.5-5.1) Glucose (Fingerstick) 113mg/dL (70-99) 115mg/dL (70-99) Test 12/16/16 19:30 12/17/16 05:00 12/17/16 08:25 O2 Saturation 99% (92-99) Arterial Blood pH 7.42 (7.35-7.45) Arterial Blood pCO2 at Patient Temp 46mmHg (35-46) Arterial Blood pO2 at Patient Temp 162mmHg (75-108) Arterial Blood HCO3 29mmol/L (21-28) Arterial Blood Base Excess 5mmol/L (-3-3) FiO2 100 White Blood Count 17.2x10^3/uL (4.0-11.0) Red Blood Count 2.78x10^6/uL (4.30-5.70) Hemoglobin 8.2g/dL (13.0-17.5) Hematocrit 25.5% (39.0-53.0) Mean Corpuscular Volume 92fL (79-100) Mean Corpuscular Hemoglobin 30pg (25-35) Mean Corpuscular Hemoglobin Concent 32g/dL (31-37) Red Cell Distribution Width 14.1% (11.5-14.5) Platelet Count 334x10^3/uL (140-400) Neutrophils (%) (Auto) 72% (31-73) Lymphocytes (%) (Auto) 11% (24-48) Monocytes (%) (Auto) 16% (0-9) Eosinophils (%) (Auto) 1% (0-3) Basophils (%) (Auto) 1% (0-3) Neutrophils # (Auto) 12.3x10^3uL (1.8-7.7) Lymphocytes # (Auto) 1.8x10^3/uL (1.0-4.8) Monocytes # (Auto) 2.7x10^3/uL (0.0-1.1) Eosinophils # (Auto) 0.2x10^3/uL (0.0-0.7) Basophils # (Auto) 0.1x10^3/uL (0.0-0.2) Sodium Level 141mmol/L (136-145) Potassium Level 4.0mmol/L (3.5-5.1) Chloride Level 103mmol/L (98-107) Carbon Dioxide Level 31mmol/L (21-32) Anion Gap 7 (6-14) Blood Urea Nitrogen 14mg/dL (8-26) Creatinine 1.7mg/dL (0.7-1.3) Estimated GFR (Cockcroft-Gault) 52.1 Glucose Level 116mg/dL (70-99) Calcium Level 8.2mg/dL (8.5-10.1) Phosphorus Level 2.3mg/dL (2.6-4.7) Creatine Kinase 165U/L (39-308) Albumin 2.9g/dL (3.4-5.0) Glucose (Fingerstick) 119mg/dL (70-99) Laboratory Tests Test 12/16/16 12:00 12/16/16 12:19 12/16/16 17:50 12/16/16 18:28 Potassium Level 4.5mmol/L (3.5-5.1) 4.5mmol/L (3.5-5.1) Glucose (Fingerstick) 113mg/dL (70-99) 115mg/dL (70-99) Test 12/16/16 19:30 12/17/16 05:00 12/17/16 08:25 O2 Saturation 99% (92-99) Arterial Blood pH 7.42 (7.35-7.45) Arterial Blood pCO2 at Patient Temp 46mmHg (35-46) Arterial Blood pO2 at Patient Temp 162mmHg (75-108) Arterial Blood HCO3 29mmol/L (21-28) Arterial Blood Base Excess 5mmol/L (-3-3) FiO2 100 White Blood Count 17.2x10^3/uL (4.0-11.0) Red Blood Count 2.78x10^6/uL (4.30-5.70) Hemoglobin 8.2g/dL (13.0-17.5) Hematocrit 25.5% (39.0-53.0) Mean Corpuscular Volume 92fL (79-100) Mean Corpuscular Hemoglobin 30pg (25-35) Mean Corpuscular Hemoglobin Concent 32g/dL (31-37) Red Cell Distribution Width 14.1% (11.5-14.5) Platelet Count 334x10^3/uL (140-400) Neutrophils (%) (Auto) 72% (31-73) Lymphocytes (%) (Auto) 11% (24-48) Monocytes (%) (Auto) 16% (0-9) Eosinophils (%) (Auto) 1% (0-3) Basophils (%) (Auto) 1% (0-3) Neutrophils # (Auto) 12.3x10^3uL (1.8-7.7) Lymphocytes # (Auto) 1.8x10^3/uL (1.0-4.8) Monocytes # (Auto) 2.7x10^3/uL (0.0-1.1) Eosinophils # (Auto) 0.2x10^3/uL (0.0-0.7) Basophils # (Auto) 0.1x10^3/uL (0.0-0.2) Sodium Level 141mmol/L (136-145) Potassium Level 4.0mmol/L (3.5-5.1) Chloride Level 103mmol/L (98-107) Carbon Dioxide Level 31mmol/L (21-32) Anion Gap 7 (6-14) Blood Urea Nitrogen 14mg/dL (8-26) Creatinine 1.7mg/dL (0.7-1.3) Estimated GFR (Cockcroft-Gault) 52.1 Glucose Level 116mg/dL (70-99) Calcium Level 8.2mg/dL (8.5-10.1) Phosphorus Level 2.3mg/dL (2.6-4.7) Creatine Kinase 165U/L (39-308) Albumin 2.9g/dL (3.4-5.0) Glucose (Fingerstick) 119mg/dL (70-99) Medications Active Scripts Medications Dose Route/Sig Days Date Category Percocet 5-325 Mg Tablet (Oxycodone/Acetaminophen) 1 Each Tablet 1-2 Tab PO Q4HRS 05/25/16 Reported Ultram (Tramadol Hcl) 50 Mg Tablet 50 Mg PO Q6H PRN 05/22/16 Rx Robaxin (Methocarbamol) 500 Mg Tablet 500 Mg PO QID 05/22/16 Rx Comments 12/16/16: CXR - Decompensation : Comparison is made to yesterday's study. An ET tube is in place with its tip located well above the corey. An NG tube extends into the stomach. The right PICC and right jugular dialysis type catheters are unchanged in positions. The heart size is unchanged. There are moderate bilateral pulmonary infiltrates with obscuration of the underlying pulmonary vascularity. These appear to have worsened slightly. The hemidiaphragms are obscured. There is pleural fluid contributing to the basilar opacities. There is no evidence of pneumothorax. IMPRESSION 1. Slight interval worsening of the moderate bilateral pulmonary infiltrates compatible with pulmonary edema and/or pneumonia. 2. Small bilateral pleural effusions. Impression . 1. Acute hypoxemic respiratory failure, multifactorial in etiology.(septic shock, CHF, Metabolic acidosis, Renal failure,Possible pneumonia) 2. worsening bilateral infiltrates, suspect persistent CHF - and ventilatory parameters improved after HD. 3. CMP (EF 30%)/ cath findings c/w CHF 4. Septic shock POA.off pressors 5. Acute kidney injury - currently on HD 6. Smoker. 7. History of drug abuse. 8. Status post cardiopulmonary arrest. 9. Hypotension.off pressors 10.Metabolic acidosis - resolved 11. s/ p cath the Right Atrial Pressure is 20 mmHg. The Right Ventricular Pressure is 50/30 mmHg. The Pulmonary Artery Pressure is 50/29 mmHg. The Pulmonary Catheter Wedge Pressure is 25 mmHg. LVEDP 30. This is c/w ongoing CHF Plan . 1. AC, Peep 5, RR 16, and ventilatory parameters improving - Precidex gtt to control anxiety as sedation lightened. - Weaning trial this Am, and tolerating well. Increaswed dyspnea last evening and improved with HD. Will obtain CXR, and BNP this Am. MAY benefit from HD today prior to extubation. Will Check CXR, BNP; discuss with Nephrology 2. Wean sedation 3. Bronchodilator, 4. s/p Bronch , severe tracheitis 5. ID recommendations 6. Continue abx per ID 7. Pepcid and heparin for stress ulcer and DVT prophylaxis. 8. Urine drug screen, pos.for cocaine 10. Follow Cardiology and nephrology recommendations. Cath 11. HD to continue per nephrology ANDREW SANCHEZ MD Dec 17, 2016 10:12
--- NOTE | 2016-12-17 10:28 | RAD ---
Portable chest, 12/17/2016: History: Hypoxia Comparison is made to yesterday's study. The ET tube, NG tube, right PICC and right jugular dialysis type catheter remain in place in satisfactory positions. The heart is mildly enlarged. Bilateral pulmonary infiltrates appear to have improved slightly with better definition of the right hemidiaphragm. There is no evidence of pneumothorax. IMPRESSION: Moderate ongoing bilateral pulmonary infiltrates, slightly improved since yesterday's study.
[2016-12-17 11:51] LABS: FIO2 ABG 40; SAT O2 ABG 91 % (92-99)
--- NOTE | 2016-12-17 12:09 | PDOC ---
Infectious Disease Note Subjective Subjective On a weaning trail. Hoping for extubation soon. Tube feedings. No BM so far today. 2 liquid stools yesterday. No fever Patient is awake Denies pain or upset stomach Family and friend present. Very supportive. ROS ROS Limited, Vital Sign Vital Signs Vital Signs Date Time Temp Pulse Resp B/P Pulse Ox O2 Delivery O2 Flow Rate FiO2 12/17/16 11:28 98 Ventilator 12/17/16 11:00 69 30 120/76 12/17/16 08:00 4.0 12/17/16 08:00 97.1 97.1 Physical Exam PHYSICAL EXAM GENERAL: Intubated. Awake, calm, mittens HEENT: ETT. OGT LUNGS: Clear. HEART: S1S2, no gallop, no murmur. ABD: Mildly distended, BS present, soft, NT : Garcia EXT: generalized 1 to 2 plus. CLINICAL ANALYST: Awake, nods to few questions SKIN: No rash RUE PICC. (12/09). clean. RIJ HD cath clean Labs Lab Laboratory Tests Test 12/16/16 12:00 12/16/16 12:19 12/16/16 17:50 12/16/16 18:28 Potassium Level 4.5mmol/L (3.5-5.1) 4.5mmol/L (3.5-5.1) Glucose (Fingerstick) 113mg/dL (70-99) 115mg/dL (70-99) Test 12/16/16 19:30 12/17/16 05:00 12/17/16 08:25 O2 Saturation 99% (92-99) Arterial Blood pH 7.42 (7.35-7.45) Arterial Blood pCO2 at Patient Temp 46mmHg (35-46) Arterial Blood pO2 at Patient Temp 162mmHg (75-108) Arterial Blood HCO3 29mmol/L (21-28) Arterial Blood Base Excess 5mmol/L (-3-3) FiO2 100 White Blood Count 17.2x10^3/uL (4.0-11.0) Red Blood Count 2.78x10^6/uL (4.30-5.70) Hemoglobin 8.2g/dL (13.0-17.5) Hematocrit 25.5% (39.0-53.0) Mean Corpuscular Volume 92fL (79-100) Mean Corpuscular Hemoglobin 30pg (25-35) Mean Corpuscular Hemoglobin Concent 32g/dL (31-37) Red Cell Distribution Width 14.1% (11.5-14.5) Platelet Count 334x10^3/uL (140-400) Neutrophils (%) (Auto) 72% (31-73) Lymphocytes (%) (Auto) 11% (24-48) Monocytes (%) (Auto) 16% (0-9) Eosinophils (%) (Auto) 1% (0-3) Basophils (%) (Auto) 1% (0-3) Neutrophils # (Auto) 12.3x10^3uL (1.8-7.7) Lymphocytes # (Auto) 1.8x10^3/uL (1.0-4.8) Monocytes # (Auto) 2.7x10^3/uL (0.0-1.1) Eosinophils # (Auto) 0.2x10^3/uL (0.0-0.7) Basophils # (Auto) 0.1x10^3/uL (0.0-0.2) Sodium Level 141mmol/L (136-145) Potassium Level 4.0mmol/L (3.5-5.1) Chloride Level 103mmol/L (98-107) Carbon Dioxide Level 31mmol/L (21-32) Anion Gap 7 (6-14) Blood Urea Nitrogen 14mg/dL (8-26) Creatinine 1.7mg/dL (0.7-1.3) Estimated GFR (Cockcroft-Gault) 52.1 Glucose Level 116mg/dL (70-99) Calcium Level 8.2mg/dL (8.5-10.1) Phosphorus Level 2.3mg/dL (2.6-4.7) Creatine Kinase 165U/L (39-308) [id number]-Type Natriuretic Peptide 67009kk/mL (0-124) Albumin 2.9g/dL (3.4-5.0) Glucose (Fingerstick) 119mg/dL (70-99) Micro SPUTUM CULTURE PRL Final Final report SPUTUM CULT RES 1 Final Comment Routine respiratory sharlene Scant growth SPUTUM CULT RES 2 Final Fungus present Objective Assessment Sepsis with lactic acidosis. POA - off Pressors Fever - curve better Leukocytosis Pneumonia - S/p Bronch 12/12 - GPC on gram stain. Cult + Fungus so far -Influenza screen neg -Strep antigen & legionella Ag neg Anemia Acute encephalopathy Acute respiratory failure s/p intubation s/p PEA cardiopulmonary arrest - S/p Cath 12/12 -TTE EF 30-35%. -No veg noted Hypotension on vasopressor support x 2. Now off ASHLEY - Renal following - worse Polysubstance abuse Diarrhea. c. diff neg. stool cx neg Plan Plan of Care Continue Zyvox and Zosyn. taper soon f/u bronch cultures. d/w micro Monitor labs/temp Supportive care D/w family Critically ill Patient seen and examined.. Chart reviewed. Case discussed with SINGING TEACHER. Agree with plan of care. SHAUNNA SERRANO APRN Dec 17, 2016 12:09 CRISTIAN DELGADO MD Dec 17, 2016 15:11
[2016-12-17 14:12] LABS: HCO3 ABG 29 mmol/L (21-28); PCO2 ABG 40 mmHg (35-46); PH ABG 7.48 (7.35-7.45); PO2 ABG 57 mmHg (75-108)
[2016-12-17 14:13] LABS: FIO2 ABG 40; SAT O2 ABG 91 % (92-99)
--- NOTE | 2016-12-17 15:25 | PDOC4 ---
PROCEDURE Procedure RENAL DIALYSIS / [facility] Date of service : 12/16/2016. HD done. F 180 / HCO3 / 3K Qb 450 Qd 600 UF 2-3 kg. Well tolerated. No complications. YINKA WONG MD Dec 17, 2016 15:25
--- NOTE | 2016-12-17 15:31 | PDOC ---
PROGRESS NOTES Chief Complaint Chief Complaint Chief Complaint: - Weakness, dehydration - Cardiac arrest PEA (12/08); TTE EF of 30-35% - Acute respiratory failure, likely multifactorial; On mechanical Ventilation ( 12/08)- possible aspiration pneumonia. Possible ARDS vs pulmonary edema vs PNA - ASHLEY - Septic shock, multiorgan failure, Off pressor support - Cardiomyopathy - Metabolic acidosis - Polysubstance abuse - Elevated troponin - Hypocalcemia. History of Present Illness History of Present Illness 51 year old male seen in ICU with fimiriam and several family members present. Patient was undergoing trial of CPAP, off sedation, and appeared to be tolerating trial well. Discussed with RN, who reports that patient may be extubated in near future. Vitals Vitals Vital Signs Date Time Temp Pulse Resp B/P Pulse Ox O2 Delivery O2 Flow Rate FiO2 12/17/16 13:43 94 Ventilator 12/17/16 11:00 69 30 120/76 12/17/16 08:00 4.0 12/17/16 08:00 97.1 97.1 Physical Exam Physical Exam Pupils pinpoint, reactive to light General: Alert, Cooperative, No acute distress, Other (Off sedation on vent) Heart: Regular rate, Normal S1, Normal S2 Lungs: Crackles, Other (No appreciated wheezing. No accessory muscle use) Abdomen: Normal bowel sounds, Soft, No tenderness Extremities: No clubbing, No cyanosis Skin: No rashes, No significant lesion Labs LABS Laboratory Tests Test 12/16/16 17:50 12/16/16 18:28 12/16/16 19:30 12/17/16 05:00 Glucose (Fingerstick) 115mg/dL (70-99) Potassium Level 4.5mmol/L (3.5-5.1) 4.0mmol/L (3.5-5.1) O2 Saturation 99% (92-99) Arterial Blood pH 7.42 (7.35-7.45) Arterial Blood pCO2 at Patient Temp 46mmHg (35-46) Arterial Blood pO2 at Patient Temp 162mmHg (75-108) Arterial Blood HCO3 29mmol/L (21-28) Arterial Blood Base Excess 5mmol/L (-3-3) FiO2 100 White Blood Count 17.2x10^3/uL (4.0-11.0) Red Blood Count 2.78x10^6/uL (4.30-5.70) Hemoglobin 8.2g/dL (13.0-17.5) Hematocrit 25.5% (39.0-53.0) Mean Corpuscular Volume 92fL (79-100) Mean Corpuscular Hemoglobin 30pg (25-35) Mean Corpuscular Hemoglobin Concent 32g/dL (31-37) Red Cell Distribution Width 14.1% (11.5-14.5) Platelet Count 334x10^3/uL (140-400) Neutrophils (%) (Auto) 72% (31-73) Lymphocytes (%) (Auto) 11% (24-48) Monocytes (%) (Auto) 16% (0-9) Eosinophils (%) (Auto) 1% (0-3) Basophils (%) (Auto) 1% (0-3) Neutrophils # (Auto) 12.3x10^3uL (1.8-7.7) Lymphocytes # (Auto) 1.8x10^3/uL (1.0-4.8) Monocytes # (Auto) 2.7x10^3/uL (0.0-1.1) Eosinophils # (Auto) 0.2x10^3/uL (0.0-0.7) Basophils # (Auto) 0.1x10^3/uL (0.0-0.2) Sodium Level 141mmol/L (136-145) Chloride Level 103mmol/L (98-107) Carbon Dioxide Level 31mmol/L (21-32) Anion Gap 7 (6-14) Blood Urea Nitrogen 14mg/dL (8-26) Creatinine 1.7mg/dL (0.7-1.3) Estimated GFR (Cockcroft-Gault) 52.1 Glucose Level 116mg/dL (70-99) Calcium Level 8.2mg/dL (8.5-10.1) Phosphorus Level 2.3mg/dL (2.6-4.7) Creatine Kinase 165U/L (39-308) CX-Vpw-O-Type Natriuretic Peptide 10226lh/mL (0-124) Albumin 2.9g/dL (3.4-5.0) Test 12/17/16 08:00 12/17/16 08:25 12/17/16 10:00 12/17/16 11:49 O2 Saturation 91% (92-99) 91% (92-99) Arterial Blood pH 7.43 (7.35-7.45) 7.48 (7.35-7.45) Arterial Blood pCO2 at Patient Temp 48mmHg (35-46) 40mmHg (35-46) Arterial Blood pO2 at Patient Temp 57mmHg (75-108) 57mmHg (75-108) Arterial Blood HCO3 31mmol/L (21-28) 29mmol/L (21-28) Arterial Blood Base Excess 5mmol/L (-3-3) 5mmol/L (-3-3) FiO2 40 40 Glucose (Fingerstick) 119mg/dL (70-99) 109mg/dL (70-99) Review of Systems Review of Systems Anxiety on CPAP trial Denies chest pain Assessment and Plan Assessmemt and Plan Assessment: - Weakness, dehydration - Cardiac arrest PEA (12/08); TTE EF of 30-35%, s/p left heart cath 12/12/16 - Acute respiratory failure, likely multifactorial; On mechanical Ventilation ( 12/08)- possible aspiration pneumonia. Possible ARDS vs pulmonary edema vs PNA - ASHLEY/ATN, initiating hemodialysis - Anemia - Septic shock, multiorgan failure, Off pressor support - Cardiomyopathy - Metabolic acidosis - Polysubstance abuse - Elevated troponin - Hypocalcemia. Plan - Ordered Lovenox 40mg daily for DVT ppx - Pulmonology following, CPAP trial in process. May extubate soon. - Hgb 8.2 this morning. Patient on hemodialysis and tolerating treatment well. Will continue to monitor and correct as needed. - Continue OG tube feedings - Antibiotic management per I.D. Urine culture negative to date. Possible fungus present on bronch wash. - Continue monitoring in ICU - Recheck labs in a.m. - LTAC eval in progress - Appreciate subspecialty input Problems: Comment Review of Relevant I have reviewed the following items immanuel (where applicable) has been applied. Labs Laboratory Tests Test 12/15/16 17:51 12/16/16 06:10 12/16/16 08:00 12/16/16 12:00 Glucose (Fingerstick) 133mg/dL (70-99) White Blood Count 16.1x10^3/uL (4.0-11.0) Red Blood Count 2.54x10^6/uL (4.30-5.70) Hemoglobin 7.5g/dL (13.0-17.5) Hematocrit 23.1% (39.0-53.0) Mean Corpuscular Volume 91fL (79-100) Mean Corpuscular Hemoglobin 30pg (25-35) Mean Corpuscular Hemoglobin Concent 33g/dL (31-37) Red Cell Distribution Width 14.1% (11.5-14.5) Platelet Count 324x10^3/uL (140-400) Neutrophils (%) (Auto) 78% (31-73) Lymphocytes (%) (Auto) 7% (24-48) Monocytes (%) (Auto) 14% (0-9) Eosinophils (%) (Auto) 1% (0-3) Basophils (%) (Auto) 0% (0-3) Neutrophils # (Auto) 12.7x10^3uL (1.8-7.7) Lymphocytes # (Auto) 1.0x10^3/uL (1.0-4.8) Monocytes # (Auto) 2.2x10^3/uL (0.0-1.1) Eosinophils # (Auto) 0.1x10^3/uL (0.0-0.7) Basophils # (Auto) 0.1x10^3/uL (0.0-0.2) Segmented Neutrophils % 78% (35-66) Band Neutrophils % 4% (0-9) Lymphocytes % 8% (24-48) Atypical Lymphocytes % (Manual) 1% (0-0) Monocytes % 6% (0-10) Eosinophils % 2% (0-5) Myelocytes % 1% (0-0) Platelet Estimate Adequate (ADEQUATE) Sodium Level 145mmol/L (136-145) Potassium Level 4.2mmol/L (3.5-5.1) 4.5mmol/L (3.5-5.1) Chloride Level 107mmol/L (98-107) Carbon Dioxide Level 29mmol/L (21-32) Anion Gap 9 (6-14) Blood Urea Nitrogen 17mg/dL (8-26) Creatinine 2.2mg/dL (0.7-1.3) Estimated GFR (Cockcroft-Gault) 38.7 Glucose Level 92mg/dL (70-99) Calcium Level 8.1mg/dL (8.5-10.1) Phosphorus Level 2.9mg/dL (2.6-4.7) Creatine Kinase 193U/L (39-308) Albumin 2.8g/dL (3.4-5.0) O2 Saturation 93% (92-99) Arterial Blood pH 7.49 (7.35-7.45) Arterial Blood pCO2 at Patient Temp 37mmHg (35-46) Arterial Blood pO2 at Patient Temp 67mmHg (75-108) Arterial Blood HCO3 27mmol/L (21-28) Arterial Blood Base Excess 4mmol/L (-3-3) FiO2 40 Test 12/16/16 12:19 12/16/16 17:50 12/16/16 18:28 12/16/16 19:30 Glucose (Fingerstick) 113mg/dL (70-99) 115mg/dL (70-99) Potassium Level 4.5mmol/L (3.5-5.1) O2 Saturation 99% (92-99) Arterial Blood pH 7.42 (7.35-7.45) Arterial Blood pCO2 at Patient Temp 46mmHg (35-46) Arterial Blood pO2 at Patient Temp 162mmHg (75-108) Arterial Blood HCO3 29mmol/L (21-28) Arterial Blood Base Excess 5mmol/L (-3-3) FiO2 100 Test 12/17/16 05:00 12/17/16 08:00 12/17/16 08:25 12/17/16 10:00 White Blood Count 17.2x10^3/uL (4.0-11.0) Red Blood Count 2.78x10^6/uL (4.30-5.70) Hemoglobin 8.2g/dL (13.0-17.5) Hematocrit 25.5% (39.0-53.0) Mean Corpuscular Volume 92fL (79-100) Mean Corpuscular Hemoglobin 30pg (25-35) Mean Corpuscular Hemoglobin Concent 32g/dL (31-37) Red Cell Distribution Width 14.1% (11.5-14.5) Platelet Count 334x10^3/uL (140-400) Neutrophils (%) (Auto) 72% (31-73) Lymphocytes (%) (Auto) 11% (24-48) Monocytes (%) (Auto) 16% (0-9) Eosinophils (%) (Auto) 1% (0-3) Basophils (%) (Auto) 1% (0-3) Neutrophils # (Auto) 12.3x10^3uL (1.8-7.7) Lymphocytes # (Auto) 1.8x10^3/uL (1.0-4.8) Monocytes # (Auto) 2.7x10^3/uL (0.0-1.1) Eosinophils # (Auto) 0.2x10^3/uL (0.0-0.7) Basophils # (Auto) 0.1x10^3/uL (0.0-0.2) Sodium Level 141mmol/L (136-145) Potassium Level 4.0mmol/L (3.5-5.1) Chloride Level 103mmol/L (98-107) Carbon Dioxide Level 31mmol/L (21-32) Anion Gap 7 (6-14) Blood Urea Nitrogen 14mg/dL (8-26) Creatinine 1.7mg/dL (0.7-1.3) Estimated GFR (Cockcroft-Gault) 52.1 Glucose Level 116mg/dL (70-99) Calcium Level 8.2mg/dL (8.5-10.1) Phosphorus Level 2.3mg/dL (2.6-4.7) Creatine Kinase 165U/L (39-308) JI-Dip-P-Type Natriuretic Peptide 01893wj/mL (0-124) Albumin 2.9g/dL (3.4-5.0) O2 Saturation 91% (92-99) 91% (92-99) Arterial Blood pH 7.43 (7.35-7.45) 7.48 (7.35-7.45) Arterial Blood pCO2 at Patient Temp 48mmHg (35-46) 40mmHg (35-46) Arterial Blood pO2 at Patient Temp 57mmHg (75-108) 57mmHg (75-108) Arterial Blood HCO3 31mmol/L (21-28) 29mmol/L (21-28) Arterial Blood Base Excess 5mmol/L (-3-3) 5mmol/L (-3-3) FiO2 40 40 Glucose (Fingerstick) 119mg/dL (70-99) Test 12/17/16 11:49 Glucose (Fingerstick) 109mg/dL (70-99) Laboratory Tests Test 12/16/16 17:50 12/16/16 18:28 12/16/16 19:30 12/17/16 05:00 Glucose (Fingerstick) 115mg/dL (70-99) Potassium Level 4.5mmol/L (3.5-5.1) 4.0mmol/L (3.5-5.1) O2 Saturation 99% (92-99) Arterial Blood pH 7.42 (7.35-7.45) Arterial Blood pCO2 at Patient Temp 46mmHg (35-46) Arterial Blood pO2 at Patient Temp 162mmHg (75-108) Arterial Blood HCO3 29mmol/L (21-28) Arterial Blood Base Excess 5mmol/L (-3-3) FiO2 100 White Blood Count 17.2x10^3/uL (4.0-11.0) Red Blood Count 2.78x10^6/uL (4.30-5.70) Hemoglobin 8.2g/dL (13.0-17.5) Hematocrit 25.5% (39.0-53.0) Mean Corpuscular Volume 92fL (79-100) Mean Corpuscular Hemoglobin 30pg (25-35) Mean Corpuscular Hemoglobin Concent 32g/dL (31-37) Red Cell Distribution Width 14.1% (11.5-14.5) Platelet Count 334x10^3/uL (140-400) Neutrophils (%) (Auto) 72% (31-73) Lymphocytes (%) (Auto) 11% (24-48) Monocytes (%) (Auto) 16% (0-9) Eosinophils (%) (Auto) 1% (0-3) Basophils (%) (Auto) 1% (0-3) Neutrophils # (Auto) 12.3x10^3uL (1.8-7.7) Lymphocytes # (Auto) 1.8x10^3/uL (1.0-4.8) Monocytes # (Auto) 2.7x10^3/uL (0.0-1.1) Eosinophils # (Auto) 0.2x10^3/uL (0.0-0.7) Basophils # (Auto) 0.1x10^3/uL (0.0-0.2) Sodium Level 141mmol/L (136-145) Chloride Level 103mmol/L (98-107) Carbon Dioxide Level 31mmol/L (21-32) Anion Gap 7 (6-14) Blood Urea Nitrogen 14mg/dL (8-26) Creatinine 1.7mg/dL (0.7-1.3) Estimated GFR (Cockcroft-Gault) 52.1 Glucose Level 116mg/dL (70-99) Calcium Level 8.2mg/dL (8.5-10.1) Phosphorus Level 2.3mg/dL (2.6-4.7) Creatine Kinase 165U/L (39-308) RO-Bni-V-Type Natriuretic Peptide 42383jq/mL (0-124) Albumin 2.9g/dL (3.4-5.0) Test 12/17/16 08:00 12/17/16 08:25 12/17/16 10:00 12/17/16 11:49 O2 Saturation 91% (92-99) 91% (92-99) Arterial Blood pH 7.43 (7.35-7.45) 7.48 (7.35-7.45) Arterial Blood pCO2 at Patient Temp 48mmHg (35-46) 40mmHg (35-46) Arterial Blood pO2 at Patient Temp 57mmHg (75-108) 57mmHg (75-108) Arterial Blood HCO3 31mmol/L (21-28) 29mmol/L (21-28) Arterial Blood Base Excess 5mmol/L (-3-3) 5mmol/L (-3-3) FiO2 40 40 Glucose (Fingerstick) 119mg/dL (70-99) 109mg/dL (70-99) Microbiology 12/07/16 Blood Culture - Final, Complete NO GROWTH AFTER 5 DAYS 12/07/16 Stool Culture - Final, Complete 12/07/16 Stool Culture Result 1 (NEFTALI) - Final, Complete 12/07/16 Campylobacter Antigen Assay - Final, Complete 12/07/16 Campylobactor Result 1 - Final, Complete 12/07/16 Shiga Toxin Test - Final, Complete 12/12/16 AFB Specimen Processing Tissue - Final, Resulted 12/12/16 Acid Fast Bacilli Culture, Resulted Pending 12/12/16 Gram Stain - Final, Resulted 12/12/16 Fungal Culture, Resulted Pending 12/12/16 Fungal Culture Result 1, Resulted Pending 12/12/16 Urine Culture - Final, Complete 12/12/16 Urine Culture Result 1 (NEFTALI) - Final, Complete Medications Current Medications Ketorolac Tromethamine 30 mg 30 mg 1X ONCE IV Last administered on 12/07/16 14:34; Start 12/07/16 at 14:30; Stop 12/07/16 at 14:31; Status DC Sodium Chloride 1,000 ml @ 1,000 mls/hr 1X ONCE IV Last administered on 14:34; Start 12/07/16 at 14:30; Stop 12/07/16 at 15:29; Status DC Ceftriaxone Sodium 1 gm/ Sodium Chloride 50 ml @ 100 mls/hr Q24H IV ; Start at 15:30; Stop 12/08/16 at 15:30; Status DC Azithromycin 250 ml @ 250 mls/hr 1X ONCE IV Last administered on 12/07/16 15 :48; Start 12/07/16 at 15:15; Stop 12/07/16 at 16:14; Status DC Sodium Chloride 1,000 ml @ 1,000 mls/hr 1X ONCE IV Last administered on 16:09; Start 12/07/16 at 15:15; Stop 12/07/16 at 16:14; Status DC Ceftriaxone Sodium 50 ml @ 100 mls/hr 1X ONCE IV Last administered on 15:29; Start 12/07/16 at 15:15; Stop 12/07/16 at 15:44; Status DC Sodium Chloride (Iv Sodium Chloride 0.9% 1000ml Bag) 1,000 ml @ 150 mls/hr 1X ONCE IV Last administered on 12/07/16 18:10; Start 12/07/16 at 15:15; Stop 11/11 at 21:54; Status DC Famotidine (Pepcid) 20 mg 1X ONCE IVP Last administered on 12/07/16 15:48; Start 12/07/16 at 15:45; Stop 12/07/16 at 15:46; Status DC Ondansetron HCl 4 mg 4 mg 1X ONCE IV Last administered on 12/07/16 16:09; Start 12/07/16 at 16:15; Stop 12/07/16 at 16:16; Status DC Sodium Chloride (Iv Sodium Chloride 0.9% 1000ml Bag) 1,000 ml @ 150 mls/hr Q6H40M IV Last administered on 12/08/16 06:38; Start 12/07/16 at 16:30; Stop 12/08/16 at 14:21; Status DC Ondansetron HCl (Zofran) 4 mg PRN Q6HRS PRN IV NAUSEA/VOMITING; Start 12/07/16 at 16:30 Acetaminophen (Tylenol) 500 mg PRN Q6HRS PRN PO MILD PAIN / TEMP Last administered on 12/09/16 15:04; Start 12/07/16 at 16:30 Morphine Sulfate 2 mg PRN Q2HR PRN IV PAIN Last administered on 12/08/16 05:28 ; Start 12/07/16 at 16:30 Zolpidem Tartrate (Ambien) 5 mg PRN QHS PRN PO INSOMNIA Last administered on 01:06; Start 12/07/16 at 16:30; Stop 12/08/16 at 10:03; Status DC Methocarbamol (Robaxin) 500 mg QID PO Last administered on 12/07/16 21:19; Start 12/07/16 at 17:00; Stop 12/08/16 at 10:03; Status DC Oxycodone/ Acetaminophen (Percocet 5/325) 1 tab PRN Q4HRS PRN PO SEVERE PAIN; Start 12/07/16 at 16:30 Tramadol HCl (Ultram) 50 mg PRN Q6HRS PRN PO MODERATE PAIN Last administered on 12/07/16 17:11; Start 12/07/16 at 16:30 Nicotine (Nicoderm Cq 21mg) 1 patch PRN DAILY PRN TD SMOKING CESSATION; Start 12/07/16 at 16:30 Info (Do NOT chart on this placeholder) 1 each 1X ONCE MC ; Start 12/07/16 at 22:45; Stop 12/07/16 at 22:46; Status UNV Pneumococcal Polyvalent Vaccine (Do NOT chart on this placeholder) 1 each 1X ONCE MC ; Start 12/07/16 at 22:45; Stop 12/07/16 at 22:46; Status UNV Influenza Virus Vaccine Quadrival (Fluarix Quad [id number] Syringe) 0.5 ml ONCE ONCE VAX IM ; Start 12/08/16 at 09:00; Stop 12/08/16 at 09:01; Status DC Pneumococcal Polyvalent Vaccine (Pneumovax 23) 0.5 ml ONCE ONCE VAX IM ; Start 12/08/16 at 09:00; Stop 12/08/16 at 09:01; Status DC Labetalol HCl (Normodyne) 10 mg 1X ONCE IVP Last administered on 12/08/16 08: 56; Start 12/08/16 at 08:30; Stop 12/08/16 at 08:35; Status DC Alprazolam (Xanax) 0.5 mg 1X ONCE PO Last administered on 12/08/16 08:40; Start 12/08/16 at 08:45; Stop 12/08/16 at 08:46; Status DC Aspirin (Children'S Aspirin) 324 mg 1X ONCE PO Last administered on 12/08/16 13:44; Start 12/08/16 at 09:30; Stop 12/08/16 at 09:31; Status DC Aspirin (Jada Aspirin) 325 mg DAILYWBKFT PO ; Start 12/09/16 at 08:00; Stop at 08:00; Status DC Heparin Sodium (Porcine) 4000 unit 4,000 unit 1X ONCE IV ; Start 12/08/16 at 09 :30; Stop 12/08/16 at 14:21; Status DC Midazolam HCl 100 ml @ As Directed STK-MED ONCE IV ; Start 12/08/16 at 09:52; Stop 12/08/16 at 09:53; Status DC Propofol (Diprivan) 100 ml @ 0 mls/hr CONT PRN IV SEE I/O RECORD Last administered on 12/08/16 23:49; Start 12/08/16 at 10:00 Famotidine (Pepcid) 20 mg QHS IVP Last administered on 12/17/16 00:07; Start 12/08/16 at 21:00 Heparin Sodium (Porcine) 5000 unit 5,000 unit Q8HRS SQ ; Start 12/08/16 at 14:00 ; Stop 12/08/16 at 14:00; Status DC Norepinephrine Bitartrate 8 mg/ Sodium Chloride 258 ml @ 1.93 mls/hr CONT PRN IV SEE I/O RECORD; Start 12/08/16 at 10:15; Status Cancel Dopamine HCl/ Dextrose 250 ml @ As Directed STK-MED ONCE IV ; Start 12/08/16 at 10:07; Stop 12/08/16 at 10:08; Status DC Norepinephrine Bitartrate 8 mg/ Sodium Chloride 258 ml @ 0 mls/hr CONT PRN IV SEE I/O RECORD Last administered on 12/09/16 08:46; Start 12/08/16 at 10:15; Stop 12/09/16 at 11:47; Status DC Dopamine HCl/ Dextrose 250 ml @ 10.084 mls/ hr CONT PRN IV SEE I/O RECORD Last administered on 12/08/16 10:00; Start 12/08/16 at 10:15 Sodium Bicarbonate/ Sodium Chloride (Iv Sodium Chloride 0.45%) 1,050 ml @ 200 mls/hr Q5H15M IV Last administered on 12/09/16 05:11; Start 12/08/16 at 10:30 ; Stop 12/09/16 at 08:28; Status DC Phenylephrine HCl 1 mg STK-MED ONCE IV ; Start 12/08/16 at 10:25; Stop 12/08/16 at 10:26; Status DC Aspirin 300 mg [address] ; Start 12/08/16 at 10:45; Stop 12/08/16 at 10 :46; Status DC Sodium Chloride 1,000 ml @ 1,000 mls/hr 1X ONCE IV Last administered on 10:00; Start 12/08/16 at 11:45; Stop 12/08/16 at 12:44; Status DC Sodium Chloride (Iv Sodium Chloride 0.9% 1000ml Bag) 1,000 ml @ 1,000 mls/hr 1X ONCE IV Last administered on 12/08/16 10:00; Start 12/08/16 at 11:45; Stop 12/08/16 at 12:44; Status DC Albuterol/ Ipratropium (Duoneb) 3 ml RTQID NEB Last administered on 12/08/16 19:44; Start 12/08/16 at 12:30; Stop 12/09/16 at 05:17; Status DC Budesonide 0.5 mg 0.5 mg RTBID NEB Last administered on 12/17/16 08:09; Start 12/08/16 at 12:30 Sodium Chloride 1,000 ml @ 1,000 mls/hr 1X ONCE IV Last administered on 11:00; Start 12/08/16 at 12:15; Stop 12/08/16 at 13:14; Status DC Sodium Chloride 1,000 ml @ 1,000 mls/hr 1X ONCE IV Last administered on 11:00; Start 12/08/16 at 12:15; Stop 12/08/16 at 13:14; Status DC Heparin Sodium/ Dextrose 500 ml @ 0 mls/hr CONT PRN IV SEE I/O RECORD Last administered on 12/09/16 13:11; Start 12/08/16 at 12:45; Stop 12/13/16 at 13:10 ; Status DC Heparin Sodium (Porcine) 1,350 unit PRN Q6HRS PRN IV FOR UFH LEVEL LESS THAN 0.2 Last administered on 12/09/16 05:47; Start 12/08/16 at 12:45; Stop at 13:10; Status DC Etomidate (Amidate) 20 mg STK-MED ONCE IV ; Start 12/08/16 at 13:00; Stop at 13:01; Status DC Succinylcholine Chloride 200 mg 200 mg STK-MED ONCE .ROUTE ; Start 12/08/16 at 13:00; Stop 12/08/16 at 13:01; Status DC Piperacillin Sod/ Tazobactam Sod 3.375 gm/Sodium Chloride 50 ml @ 100 mls/hr Q6HRS IV ; Start 12/08/16 at 18:00; Stop 12/08/16 at 18:00; Status DC Vancomycin HCl 1 gm/Sodium Chloride 250 ml @ 250 mls/hr 1X ONCE IV Last administered on 12/08/16 14:21; Start 12/08/16 at 14:00; Stop 12/08/16 at 14:59 ; Status DC Piperacillin Sod/ Tazobactam Sod 2.25 gm/Sodium Chloride 50 ml @ 100 mls/hr Q6HRS IV Last administered on 12/09/16 06:17; Start 12/08/16 at 14:00; Stop at 08:25; Status DC Midazolam HCl 100 ml @ 0 mls/hr CONT PRN IV SEE I/O RECORD Last administered on 12/17/16 04:53; Start 12/08/16 at 10:30 Fentanyl Citrate (Fentanyl 600 Mcg/30 ml LOOK OUT [employer]) 30 ml @ 0 mls/hr CONT PRN IV PROTOCOL Last administered on 12/17/16 04:54; Start 12/09/16 at 05:15 Fentanyl Citrate (Fentanyl 2ml Vial) 25 mcg PRN Q1HR PRN IV COMM; Start at 05:15 Fentanyl Citrate (Fentanyl 2ml Vial) 50 mcg PRN Q1HR PRN IV COMM; Start at 05:15 Ipratropium Ramsey (Atrovent) 0.5 mg RTQID NEB Last administered on 12/17/16 11:26; Start 12/09/16 at 08:00 Aspirin (Children'S Aspirin) 81 mg DAILYWBKFT PO Last administered on 08:37; Start 12/09/16 at 08:00 Chlorhexidine Gluconate 15 ml 15 ml BID MM Last administered on 12/17/16 08:37 ; Start 12/09/16 at 09:00 Sodium Bicarbonate 150 meq/Dextrose 1,150 ml @ 100 mls/hr [id number] IV Last administered on 12/10/16 09:34; Start 12/09/16 at 09:00; Stop 12/10/16 at 12:14 ; Status DC Piperacillin Sod/ Tazobactam Sod 3.375 gm/Sodium Chloride 50 ml @ 100 mls/hr Q6HRS IV Last administered on 12/11/16 06:01; Start 12/09/16 at 12:00; Stop at 07:47; Status DC Norepinephrine Bitartrate 16 mg/ Sodium Chloride 266 ml @ 0.99 mls/hr CONT PRN IV SEE I/O RECORD Last administered on 12/09/16 20:36; Start 12/09/16 at 12 :00 Doxycycline Hyclate/Dextrose 100 ml @ 50 mls/hr Q12HR IV Last administered on 12/13/16 20:50; Start 12/09/16 at 13:00; Stop 12/14/16 at 08:34; Status DC Atropine Sulfate 0.5 mg STK-MED ONCE .ROUTE ; Start 12/08/16 at 10:30; Stop at 13:18; Status DC Epinephrine HCl 3 mg STK-MED ONCE .ROUTE ; Start 12/08/16 at 10:30; Stop at 13:18; Status DC Calcium Gluconate 1000 mg 1,000 mg 1X ONCE IVP ; Start 12/10/16 at 10:00; Stop 12/10/16 at 10:01; Status UNV Magnesium Sulfate/ Dextrose 50 ml @ 25 mls/hr 1X ONCE IV Last administered on 12/10/16 11:40; Start 12/10/16 at 12:00; Stop 12/10/16 at 13:59; Status DC Calcium Gluconate 1000 mg/Sodium Chloride 110 ml @ 220 mls/hr 1X ONCE IV Last administered on 12/10/16 11:36; Start 12/10/16 at 12:00; Stop 12/10/16 at 12:29; Status DC Magnesium Sulfate/ Dextrose 50 ml @ 25 mls/hr PRN DAILY PRN IV for Mag < 1.7 on am labs; Start 12/10/16 at 12:15; Stop 12/13/16 at 09:57; Status DC Amino Acids/ Glycerin/ Electrolytes 1,000 ml @ 80 mls/hr [id number] IV ; Start at 12:30; Stop 12/10/16 at 12:30; Status DC Albumin Human (Albuminar) 100 ml @ 100 mls/hr TID IV ; Start 12/10/16 at 14:00 ; Stop 12/10/16 at 14:00; Status DC Calcium Gluconate 2000 mg 2,000 mg TID IVP ; Start 12/10/16 at 14:00; Stop 12/10 at 14:00; Status DC Piperacillin Sod/ Tazobactam Sod 2.25 gm/Sodium Chloride 50 ml @ 100 mls/hr Q6HRS IV Last administered on 12/17/16 12:33; Start 12/11/16 at 12:00 Linezolid (Zyvox Premix) 300 ml @ 300 mls/hr Q12HR IV Last administered on 08:37; Start 12/11/16 at 09:00 Info 1 each 1 each PRN DAILY PRN MC SEE COMMENTS Last administered on 08:21; Start 12/11/16 at 08:15; Stop 12/13/16 at 13:13; Status DC Potassium Phosphate/Sodium Chloride (Potassium Phosphate/Iv Sodium Chloride 0.9 % 100ml) 104.5333 ml @ 52.267 m... Q2H IV Last administered on 12/11/16 17:22 ; Start 12/11/16 at 09:00; Stop 12/11/16 at 14:59; Status DC Furosemide 20 mg 20 mg 1X ONCE IVP Last administered on 12/11/16 11:10; Start 12/11/16 at 10:00; Stop 12/11/16 at 10:03; Status DC Dobutamine HCl/ Dextrose 250 ml @ 0 mls/hr CONT PRN IV SEE I/O RECORD Last administered on 12/11/16 15:05; Start 12/11/16 at 14:45 Magnesium Sulfate/ Dextrose 50 ml @ 25 mls/hr PRN DAILY PRN IV for Mag < 1.7 on am labs; Start 12/12/16 at 08:45; Stop 12/13/16 at 09:57; Status DC Potassium Chloride 50 ml @ 50 mls/hr PRN Q6HRS PRN IV For K < 3.7; Start at 08:45; Stop 12/13/16 at 09:57; Status DC Potassium Chloride (KCl Premix 20meq) 50 ml @ 50 mls/hr PRN Q2HR PRN IV total of 40mEq for K < 3.5; Start 12/12/16 at 08:45; Stop 12/13/16 at 09:57; Status DC Acetylcysteine 1200 mg 1,200 mg BID PO Last administered on 12/13/16 20:50; Start 12/12/16 at 09:00; Stop 12/14/16 at 08:17; Status DC Potassium Chloride (KCl Premix 20meq) 50 ml @ 50 mls/hr Q1H IV Last administered on 12/12/16 13:16; Start 12/12/16 at 09:00; Stop 12/12/16 at 10:59 ; Status DC Lidocaine/Sodium Bicarbonate 20 ml 20 ml STK-MED ONCE IJ ; Start 12/12/16 at 12: 13; Stop 12/12/16 at 12:14; Status DC Heparin Sodium/ Sodium Chloride 500 ml @ As Directed STK-MED ONCE .ROUTE ; Start 12/12/16 at 12:14; Stop 12/12/16 at 12:15; Status DC Lidocaine/Sodium Bicarbonate (Buffered Lidocaine 1%) 3 ml 1X ONCE IJ Last administered on 12/12/16 13:08; Start 12/12/16 at 12:15; Stop 12/12/16 at 12:17 ; Status DC Heparin Sodium (Porcine) 2,500 unit 1X ONCE INT CAT Last administered on 13:08; Start 12/12/16 at 12:15; Stop 12/12/16 at 12:17; Status DC Heparin Sodium/ Sodium Chloride 60 unit 60 unit 1X ONCE IV Last administered on 12/12/16 12:15; Start 12/12/16 at 12:15; Stop 12/12/16 at 12:17; Status DC Heparin Sodium/ Sodium Chloride 1,500 ml @ As Directed STK-MED ONCE .ROUTE ; Start 12/12/16 at 15:03; Stop 12/12/16 at 15:04; Status DC Lidocaine HCl 20 ml STK-MED ONCE .ROUTE ; Start 12/12/16 at 15:03; Stop at 15:04; Status DC Iodixanol (Visipaque 320) 100 ml STK-MED ONCE .ROUTE ; Start 12/12/16 at 15:04; Stop 12/12/16 at 15:05; Status DC Heparin Sodium/ Sodium Chloride 1,000 unit 1X ONCE IART Last administered on 15:41; Start 12/12/16 at 15:30; Stop 12/12/16 at 15:32; Status DC Iodixanol (Visipaque 320) 100 ml 1X ONCE IART Last administered on 12/12/16 15:41; Start 12/12/16 at 15:30; Stop 12/12/16 at 15:32; Status DC Lidocaine HCl 4 ml 4 ml 1X ONCE IJ Last administered on 12/12/16 15:41; Start 12/12/16 at 15:30; Stop 12/12/16 at 15:32; Status DC Potassium Chloride 50 ml @ 50 mls/hr 1X ONCE IV Last administered on 04:13; Start 12/13/16 at 04:15; Stop 12/13/16 at 05:14; Status DC Potassium Chloride 50 ml @ 50 mls/hr 1X ONCE IV Last administered on 03:13; Start 12/13/16 at 03:15; Stop 12/13/16 at 04:14; Status DC Potassium Chloride 50 ml @ 50 mls/hr Q1H IV ; Start 12/13/16 at 09:00; Stop at 09:00; Status DC Furosemide 100 mg/ Sodium Chloride 100 ml @ 0 mls/hr CONT PRN IV SEE I/O RECORD Last administered on 12/13/16 11:43; Start 12/13/16 at 10:00; Stop 12/14 at 08:17; Status DC Magnesium Sulfate/ Dextrose 50 ml @ 25 mls/hr PRN DAILY PRN IV for Mag < 1.7 on am labs; Start 12/13/16 at 10:00 Potassium Chloride 50 ml @ 50 mls/hr PRN Q6HRS PRN IV For K < 3.7 Last administered on 12/15/16 01:08; Start 12/13/16 at 10:00 Potassium Chloride 50 ml @ 50 mls/hr PRN Q2HR PRN IV total of 40mEq for K < 3.5; Start 12/13/16 at 10:00 Potassium Phosphate 40 mmol/ Sodium Chloride 113.3333 ml @ 52.267 m... PRN 1X PRN IV SEE COMMENTS; Start 12/13/16 at 10:00; Stop 12/13/16 at 23:59; Status DC Sodium Chloride 1,000 ml @ 1,000 mls/hr Q1H PRN IV hypotension; Start 12/13/16 at 14:51; Stop 12/13/16 at 20:50; Status DC Sodium Chloride (Iv Sodium Chloride 0.9% 1000ml Bag) 1,000 ml @ 400 mls/hr Q2H30M PRN IV PATENCY; Start 12/13/16 at 14:51; Stop 12/14/16 at 02:50; Status DC Info (PHARMACY MONITORING -- do not chart) 1 each PRN DAILY PRN MC SEE COMMENTS ; Start 12/13/16 at 15:00; Status UNV Info 1 each 1 each PRN DAILY PRN MC SEE COMMENTS; Start 12/13/16 at 15:00; Stop 12/15/16 at 08:35; Status DC Sodium Phosphate 0.4 mmol/Dextrose 1 ml @ 50 mls/hr BID IV ; Start 12/14/16 at 09:00; Status UNV Albumin Human (Albuminar) 100 ml @ 100 mls/hr TID IV Last administered on 12/15 21:14; Start 12/14/16 at 09:00; Stop 12/15/16 at 21:59; Status DC Darbepoetin Koffi 60 mcg 60 mcg [id number] SQ Last administered on 12/14/16 21:07 ; Start 12/14/16 at 21:00 Sodium Phosphate/ Dextrose 113.3333 ml @ 28.333 m... Q4H IV Last administered on 12/14/16 14:59; Start 12/14/16 at 09:00; Stop 12/14/16 at 16:59; Status DC Info (PHARMACY MONITORING -- do not chart) 1 each PRN DAILY PRN MC SEE COMMENTS ; Start 12/14/16 at 11:00; Status UNV Info 1 each 1 each PRN DAILY PRN MC SEE COMMENTS; Start 12/14/16 at 11:00; Status UNV Albumin Human 200 ml @ 200 mls/hr 1X PRN PRN IV Hypotension; Start 12/14/16 at 13:30; Stop 12/14/16 at 19:00; Status DC Sodium Chloride 1,000 ml @ 1,000 mls/hr Q1H PRN IV hypotension; Start 12/15/16 at 06:32; Stop 12/15/16 at 09:09; Status DC Albumin Human 200 ml @ 200 mls/hr 1X PRN PRN IV Hypotension Last administered on 12/15/16 07:38; Start 12/15/16 at 06:45; Stop 12/15/16 at 12:44; Status DC Sodium Chloride (Iv Sodium Chloride 0.9% 1000ml Bag) 1,000 ml @ 400 mls/hr Q2H30M PRN IV PATENCY; Start 12/15/16 at 06:32; Stop 12/15/16 at 18:31; Status DC Info 1 each 1 each PRN DAILY PRN MC SEE COMMENTS; Start 12/15/16 at 06:45 Piperacillin Sod/ Tazobactam Sod 2.25 gm/Sodium Chloride 50 ml @ 100 mls/hr Q8HRS IV ; Start 12/15/16 at 14:00; Stop 12/15/16 at 14:00; Status DC Piperacillin Sod/ Tazobactam Sod 2.25 gm/Sodium Chloride 50 ml @ 100 mls/hr Q6HRS IV ; Start 12/15/16 at 12:00; Status Cancel Dexmedetomidine HCl 200 mcg/ Sodium Chloride 50 ml @ 0 mls/hr CONT PRN IV PER PROTOCOL Last administered on 12/17/16t 12:34; Start 12/16/16 at 12:15 Sodium Chloride (Iv Sodium Chloride 0.9% 500ml Bag) 500 ml @ 500 mls/hr 1X PRN PRN IV SEE COMMENTS; Start 12/16/16 at 12:15 Atropine Sulfate 0.5 mg 0.5 mg PRN Q5MIN PRN IV SEE COMMENTS; Start 12/16/16 at 12:15 Sodium Chloride 1,000 ml @ 1,000 mls/hr Q1H PRN IV hypotension; Start 12/16/16 at 20:04; Stop 12/17/16 at 02:03; Status DC Albumin Human (Albuminar) 200 ml @ 200 mls/hr 1X PRN PRN IV Hypotension Last administered on 12/16/16t 20:30; Start 12/16/16 at 20:15; Stop 12/17/16 at 02:14 ; Status DC Sodium Chloride (Normal Saline Flush) 10 ml 1X PRN PRN IV AP catheter pack; Start 12/16/16 at 20:15; Stop 12/17/16 at 20:14 Sodium Chloride 10 ml 10 ml 1X PRN PRN IV RESPIRATORY THERAPY MANAGER catheter pack; Start 12/16/16 at 20:15; Stop 12/17/16 at 20:14 Sodium Chloride (Iv Sodium Chloride 0.9% 1000ml Bag) 1,000 ml @ 400 mls/hr Q2H30M PRN IV PATENCY; Start 12/16/16 at 20:04; Stop 12/17/16 at 08:03; Status DC Info (PHARMACY MONITORING -- do not chart) 1 each PRN DAILY PRN MC SEE COMMENTS ; Start 12/16/16 at 20:15; Status UNV Info (PHARMACY MONITORING -- do not chart) 1 each PRN DAILY PRN MC SEE COMMENTS ; Start 12/16/16 at 20:15; Status UNV Active Scripts Active Ultram (Tramadol Hcl) 50 Mg Tablet 50 Mg PO Q6H PRN Robaxin (Methocarbamol) 500 Mg Tablet 500 Mg PO QID Reported Percocet 5-325 Mg Tablet (Oxycodone/Acetaminophen) 1 Each Tablet 1-2 Tab PO Q4HRS Vitals/I & O Vital Sign - Last 24 Hours 12/16/16 12/16/16 12/16/16 12/16/16 15:54 16:00 16:00 17:00 Temp 97.8 97.8 Pulse 72 72 Resp 30 30 B/P 108/69 155/91 Pulse Ox 99 98 98 O2 Delivery Ventilator Mechanical Ventilator Ventilator Ventilator 12/16/16 12/16/16 12/16/16 12/16/16 17:55 18:00 19:00 19:03 Pulse 68 74 Resp 21 B/P 155/91 131/83 Pulse Ox 99 96 100 90 O2 Delivery Ventilator Ventilator Ventilator Ventilator 12/16/16 12/16/16 12/16/16 12/16/16 19:03 19:17 20:00 20:15 Temp 97.5 97.5 Pulse 68 Resp 35 21 B/P 114/74 Pulse Ox 90 85 100 O2 Delivery Ventilator Ventilator Ventilator Mechanical Ventilator 12/16/16 12/16/16 12/16/16 12/16/16 21:00 21:23 22:00 23:00 Pulse 62 66 74 Resp 21 B/P 97/66 105/64 106/71 Pulse Ox 100 97 100 100 O2 Delivery Ventilator Ventilator Ventilator Ventilator 12/16/16 12/17/16 12/17/16 12/17/16 23:53 00:00 00:20 01:00 Temp 97.0 97.0 Pulse 70 68 Resp 21 B/P 121/82 111/71 Pulse Ox 100 100 100 O2 Delivery Ventilator Ventilator Mechanical Ventilator Ventilator 12/17/16 12/17/16 12/17/16 12/17/16 01:18 02:00 03:00 03:31 Pulse 68 68 Resp B/P 107/59 95/62 Pulse Ox 100 100 100 100 O2 Delivery Ventilator Ventilator Ventilator Ventilator 12/17/16 12/17/16 12/17/16 12/17/16 04:00 04:10 04:54 05:00 Temp 97.3 97.3 Pulse 68 74 Resp 21 21 B/P 100/58 105/67 Pulse Ox 100 100 94 O2 Delivery Ventilator Mechanical Ventilator Ventilator O2 Flow Rate 4.0 12/17/16 12/17/16 12/17/16 12/17/16 05:24 05:25 06:00 07:00 Pulse 68 65 Resp 21 27 B/P 100/65 102/64 Pulse Ox 98 98 94 96 O2 Delivery Ventilator Ventilator Ventilator 12/17/16 12/17/16 12/17/16 12/17/16 08:00 08:00 08:37 09:00 Temp 97.1 97.1 Pulse 65 Resp 36 34 B/P 91/63 144/81 Pulse Ox 97 90 97 O2 Delivery Ventilator Mechanical Ventilator Ventilator Ventilator O2 Flow Rate 4.0 12/17/16 12/17/16 12/17/16 12/17/16 10:00 10:26 11:00 11:28 Pulse 64 69 Resp 27 30 B/P 115/71 120/76 Pulse Ox 99 98 98 98 O2 Delivery Ventilator Ventilator Ventilator Ventilator 12/17/16 12/17/16 12:00 13:43 Pulse Ox 94 O2 Delivery Mechanical Ventilator Ventilator Intake and Output 12/16/16 12/16/16 12/17/16 15:00 23:00 07:00 Intake Total 460 ml 946 ml 1887 ml Output Total 720 ml 475 ml 3565 ml Balance -260 ml 471 ml -1678 ml MAGNO CHAPARRO III DO Dec 17, 2016 15:31
[2016-12-17] MEDS: ENOXAPARIN 40 MG/0.4 ML DISP.SYRIN. SQ SCH (17:10)
--- NOTE | 2016-12-17 17:13 | PDOC ---
Provider Note Provider Note Provider Note RENAL F/U : MARVIN S: No new c/o Intubated. On trial. O2 needs less. O : VSS Afebrile. Neck : Supple Lungs : Non labored, symmetrical. CVS : RRR Abd : Benign in appearance Labs, I/Os reviewed. ARF. HD for UF today. d/w Dr. Davis. Extubation after HD. CPM. No new issues. YINKA WONG MD Dec 17, 2016 17:13
[2016-12-17 19:49] LABS: HCO3 ABG 30 mmol/L (21-28); PCO2 ABG 40 mmHg (35-46); SAT O2 ABG 87 % (92-99)
[2016-12-17] MEDS ORDERED: ALBUMIN HUMAN 25% 100 ML IV ONE (20:00)
[2016-12-17 21:25] LABS: PO2 ABG 50 mmHg (75-108)
[2016-12-17 21:26] LABS: FIO2 ABG 40
[2016-12-18] VITALS (17 sets, daily range): BP systolic 137–179; BP diastolic 74–87
[2016-12-18] MEDS: PIPERACILLIN/TAZOBACTAM 2.25 GM in IV NORMAL SALINE 50ML 50 ML IV SCH ×2 (00:12→05:58)
[2016-12-18 06:12] LABS: BASO # 0.1 x10^3/uL (0.0-0.2); BASO % 1 % (0-3); EOS % 0 % (0-3); HEMATOCRIT 27.4 % (39.0-53.0); HEMOGLOBIN 8.9 g/dL (13.0-17.5); LYMPH # 1.4 x10^3/uL (1.0-4.8); LYMPH % 7 % (24-48); MEAN CORPUSCULAR HEMOGLOBIN 29 pg (25-35); MEAN CORPUSCULAR HGB CONC 32 g/dL (31-37); MEAN CORPUSCULAR VOLUME 91 fL (79-100); MONO % 15 % (0-9); NEUT % 77 % (31-73); PLATELET COUNT 405 x10^3/uL (140-400); RED BLOOD COUNT 3.03 x10^6/uL (4.30-5.70); RED CELL DISTRIBUTION WIDTH 13.9 % (11.5-14.5); WHITE BLOOD COUNT 19.4 x10^3/uL (4.0-11.0)
[2016-12-18 06:33] LABS: CALCIUM 8.6 mg/dL (8.5-10.1); CREATININE 1.8 mg/dL (0.7-1.3); GFR 48.8
--- NOTE | 2016-12-18 07:17 | PDOC ---
Infectious Disease Note Subjective Subjective Doing ok and wants to eat No fever/SOA Denies pain or upset stomach Family and friend present. Very supportive. ROS ROS GEN: Denies fevers, chills, sweats HEENT: Denies blurred vision, sore throat CV: Denies chest pain RESP: Denies shortness of air, cough GI: Denies n/v/d NEURO: Denies confusion, dizziness MSK: Denies weakness, joint pain/swelling Vital Sign Vital Signs Vital Signs Date Time Temp Pulse Resp B/P Pulse Ox O2 Delivery O2 Flow Rate FiO2 12/18/16 06:00 86 22 165/84 92 Nasal Cannula 3.0 12/18/16 04:00 98.2 98.2 Physical Exam PHYSICAL EXAM GENERAL: NAD, coop HEENT: PERRL, Oc/OP - clear LUNGS: Clear. HEART: S1S2, no gallop, no murmur. ABD: Mildly distended, BS present, soft, NT : Garcia EXT: No C/ C? 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 (12/09). clean. [facility] HD cath clean Labs Lab Laboratory Tests Test 12/17/16 08:00 12/17/16 08:25 12/17/16 10:00 12/17/16 11:49 O2 Saturation 91% (92-99) 91% (92-99) Arterial Blood pH 7.43 (7.35-7.45) 7.48 (7.35-7.45) Arterial Blood pCO2 at Patient Temp 48mmHg (35-46) 40mmHg (35-46) Arterial Blood pO2 at Patient Temp 57mmHg (75-108) 57mmHg (75-108) Arterial Blood HCO3 31mmol/L (21-28) 29mmol/L (21-28) Arterial Blood Base Excess 5mmol/L (-3-3) 5mmol/L (-3-3) FiO2 40 40 Glucose (Fingerstick) 119mg/dL (70-99) 109mg/dL (70-99) Test 12/17/16 17:13 12/17/16 19:34 12/18/16 06:00 Glucose (Fingerstick) 96mg/dL (70-99) O2 Saturation 87% (92-99) Arterial Blood pH 7.50 (7.35-7.45) Arterial Blood pCO2 at Patient Temp 40mmHg (35-46) Arterial Blood pO2 at Patient Temp 50mmHg (75-108) Arterial Blood HCO3 30mmol/L (21-28) Arterial Blood Base Excess 6mmol/L (-3-3) FiO2 40 White Blood Count 19.4x10^3/uL (4.0-11.0) Red Blood Count 3.03x10^6/uL (4.30-5.70) Hemoglobin 8.9g/dL (13.0-17.5) Hematocrit 27.4% (39.0-53.0) Mean Corpuscular Volume 91fL (79-100) Mean Corpuscular Hemoglobin 29pg (25-35) Mean Corpuscular Hemoglobin Concent 32g/dL (31-37) Red Cell Distribution Width 13.9% (11.5-14.5) Platelet Count 405x10^3/uL (140-400) Neutrophils (%) (Auto) 77% (31-73) Lymphocytes (%) (Auto) 7% (24-48) Monocytes (%) (Auto) 15% (0-9) Eosinophils (%) (Auto) 0% (0-3) Basophils (%) (Auto) 1% (0-3) Neutrophils # (Auto) 14.9x10^3uL (1.8-7.7) Lymphocytes # (Auto) 1.4x10^3/uL (1.0-4.8) Monocytes # (Auto) 2.9x10^3/uL (0.0-1.1) Eosinophils # (Auto) 0.0x10^3/uL (0.0-0.7) Basophils # (Auto) 0.1x10^3/uL (0.0-0.2) Sodium Level 144mmol/L (136-145) Potassium Level 4.0mmol/L (3.5-5.1) Chloride Level 105mmol/L (98-107) Carbon Dioxide Level 24mmol/L (21-32) Anion Gap 15 (6-14) Blood Urea Nitrogen 13mg/dL (8-26) Creatinine 1.8mg/dL (0.7-1.3) Estimated GFR (Cockcroft-Gault) 48.8 Glucose Level 97mg/dL (70-99) Calcium Level 8.6mg/dL (8.5-10.1) Objective Assessment Sepsis with lactic acidosis. POA - off Pressors Anemia Fever - curve better Leukocytosis - trending ? in part reactive and concentration Pneumonia - S/p Bronch 12/12 - GPC on gram stain. Cult neg so far - fungus -Influenza screen neg -Strep antigen & legionella Ag neg Acute encephalopathy Acute respiratory failure s/p intubation s/p PEA cardiopulmonary arrest - S/p Cath 12/12 -TTE EF 30-35%. -No veg noted Hypotension on vasopressor support x 2. Now off ASHLEY - Renal following - worse Polysubstance abuse Diarrhea. c. diff neg. stool cx neg Plan Plan of Care Discontinue Zosyn/Zyvox. Monitor labs/temp Supportive care D/w family LILIANA SEVERINO MD Dec 18, 2016 07:17
--- NOTE | 2016-12-18 07:21 | RAD ---
Portable chest, 12/18/2016: History: Respiratory failure Comparison is made to yesterday's study at 10:20 AM. The ET tube and NG tube have been removed. The right jugular dialysis type catheter and right PICC line are unchanged in position. The heart is mildly enlarged. Bilateral pulmonary infiltrates are unchanged. This may represent residual pulmonary edema, ARDS, pneumonia or a combination of the above. The underlying pulmonary vascularity is somewhat poorly defined. Blunting of the right lateral costophrenic angle is probably due to a small amount of residual pleural fluid. No new abnormality is detected. IMPRESSION: 1. Interval removal of the ET tube and NG tube. 2. Unchanged pulmonary infiltrates
[2016-12-18] MEDS: CHLORHEXIDINE 0.12% 15 ML MOUTHWASH. MM SCH ×2 (07:51→21:49)
[2016-12-18] MEDS: ASPIRIN 81 MG TAB.CHEW PO SCH (07:59)
[2016-12-18] MEDS: IPRATROPIUM BROMIDE 0.5 MG/2.5 ML NEBU. NEB SCH ×4 (08:50→18:56)
--- NOTE | 2016-12-18 10:58 | PDOC ---
Renal-Progress Notes Subjective Notes Notes FEELING BETTER History of Present Illness Hx of present illness BETTER Vitals Vitals Vital Signs Date Time Temp Pulse Resp B/P Pulse Ox O2 Delivery O2 Flow Rate FiO2 12/18/16 10:00 84 29 159/79 93 Nasal Cannula 3.0 12/18/16 08:00 98.2 98.2 Weight Weight [ ] I.O. Intake and Output Intake and Output 12/18/16 07:00 Intake Total 2468 ml Output Total 1635 ml Balance 833 ml Intake Oral 240 ml IV Total 1268 ml Tube Feeding 950 ml Blood Product IV Normal Saline Flush 10 ml Output Urine Total 1635 ml # Bowel Movements 1 Labs Labs Laboratory Tests Test 12/17/16 11:49 12/17/16 17:13 12/17/16 19:34 12/18/16 06:00 Glucose (Fingerstick) 109mg/dL (70-99) 96mg/dL (70-99) O2 Saturation 87% (92-99) Arterial Blood pH 7.50 (7.35-7.45) Arterial Blood pCO2 at Patient Temp 40mmHg (35-46) Arterial Blood pO2 at Patient Temp 50mmHg (75-108) Arterial Blood HCO3 30mmol/L (21-28) Arterial Blood Base Excess 6mmol/L (-3-3) FiO2 40 White Blood Count 19.4x10^3/uL (4.0-11.0) Red Blood Count 3.03x10^6/uL (4.30-5.70) Hemoglobin 8.9g/dL (13.0-17.5) Hematocrit 27.4% (39.0-53.0) Mean Corpuscular Volume 91fL (79-100) Mean Corpuscular Hemoglobin 29pg (25-35) Mean Corpuscular Hemoglobin Concent 32g/dL (31-37) Red Cell Distribution Width 13.9% (11.5-14.5) Platelet Count 405x10^3/uL (140-400) Neutrophils (%) (Auto) 77% (31-73) Lymphocytes (%) (Auto) 7% (24-48) Monocytes (%) (Auto) 15% (0-9) Eosinophils (%) (Auto) 0% (0-3) Basophils (%) (Auto) 1% (0-3) Neutrophils # (Auto) 14.9x10^3uL (1.8-7.7) Lymphocytes # (Auto) 1.4x10^3/uL (1.0-4.8) Monocytes # (Auto) 2.9x10^3/uL (0.0-1.1) Eosinophils # (Auto) 0.0x10^3/uL (0.0-0.7) Basophils # (Auto) 0.1x10^3/uL (0.0-0.2) Sodium Level 144mmol/L (136-145) Potassium Level 4.0mmol/L (3.5-5.1) Chloride Level 105mmol/L (98-107) Carbon Dioxide Level 24mmol/L (21-32) Anion Gap 15 (6-14) Blood Urea Nitrogen 13mg/dL (8-26) Creatinine 1.8mg/dL (0.7-1.3) Estimated GFR (Cockcroft-Gault) 48.8 Glucose Level 97mg/dL (70-99) Calcium Level 8.6mg/dL (8.5-10.1) Micro Micro Microbiology 12/07/16 Blood Culture - Final, Complete NO GROWTH AFTER 5 DAYS 12/07/16 Stool Culture - Final, Complete 12/07/16 Stool Culture Result 1 (NEFTALI) - Final, Complete 12/07/16 Campylobacter Antigen Assay - Final, Complete 12/07/16 Campylobactor Result 1 - Final, Complete 12/07/16 Shiga Toxin Test - Final, Complete 12/12/16 AFB Specimen Processing Tissue - Final, Resulted 12/12/16 Acid Fast Bacilli Culture, Resulted Pending 12/12/16 Gram Stain - Final, Resulted 12/12/16 Fungal Culture, Resulted Pending 12/12/16 Fungal Culture Result 1, Resulted Pending 12/12/16 Urine Culture - Final, Complete 12/12/16 Urine Culture Result 1 (NEFTALI) - Final, Complete Review of Systems Constitutional: yes: alert, oriented, weakness Ears/Nose/Throat: Yes: no symptom reported Eyes: Yes: no symptom reported Pulmonary: Yes no symptom reported Cardiovascular: Yes no symptom reported Gastrointestional: Yes: no symptom reported Genitourinary: Yes: no symptom reported Musculoskeletal: Yes: muscle atrophy, muscle stiffness Physical Exam General Appearance: no apparent distress Skin: warm Respiratory: decreased breath sounds Heart: S1S2, RRR Abdomen: soft, bowel sounds present Genitourinary: bladder flat Neurology: other (sedated) Assessment Assessment IMP ASHLEY-NON OLIGURIC AND IMPROVING ANEMIA LEUCOCYTOSIS PNEUMONIA PLAN CONT ANTIBIOTICS HOLD OFF ON DIALYSIS TODAY WILL FOLLOW BLUE RICHARDSON MD Dec 18, 2016 10:58
--- NOTE | 2016-12-18 11:07 | PDOC ---
PROGRESS NOTES Chief Complaint Chief Complaint Chief Complaint: - Weakness, dehydration - Cardiac arrest PEA (12/08); TTE EF of 30-35% - Acute respiratory failure, likely multifactorial; On mechanical Ventilation ( 12/08)- possible aspiration pneumonia. Possible ARDS vs pulmonary edema vs PNA - ASHLEY - Septic shock, multiorgan failure, Off pressor support - Cardiomyopathy - Metabolic acidosis - Polysubstance abuse - Elevated troponin - Hypocalcemia. History of Present Illness History of Present Illness 51 year old male seen in ICU with fiance and daughter present. Patient is off ventilator and CPAP, was alert & oriented, talking easily and in no acute distress. He reports being very hungry and wanting very badly to eat. No acute events since being extubated yesterday after hemodialysis. He expressed his gratitude for the care he has received here. Vitals Vitals Vital Signs Date Time Temp Pulse Resp B/P Pulse Ox O2 Delivery O2 Flow Rate FiO2 12/18/16 10:00 84 29 159/79 93 Nasal Cannula 3.0 12/18/16 08:00 98.2 98.2 Physical Exam Physical Exam Pupils pinpoint, reactive to light General: Alert, Oriented X3, Cooperative, No acute distress Heart: Regular rate, Normal S1, Normal S2 Lungs: Crackles, Other (No appreciated wheezing. No accessory muscle use) Abdomen: Normal bowel sounds, Soft, No tenderness Extremities: No clubbing, No cyanosis Skin: No rashes, No significant lesion Labs LABS Laboratory Tests Test 12/17/16 11:49 12/17/16 17:13 12/17/16 19:34 12/18/16 06:00 Glucose (Fingerstick) 109mg/dL (70-99) 96mg/dL (70-99) O2 Saturation 87% (92-99) Arterial Blood pH 7.50 (7.35-7.45) Arterial Blood pCO2 at Patient Temp 40mmHg (35-46) Arterial Blood pO2 at Patient Temp 50mmHg (75-108) Arterial Blood HCO3 30mmol/L (21-28) Arterial Blood Base Excess 6mmol/L (-3-3) FiO2 40 White Blood Count 19.4x10^3/uL (4.0-11.0) Red Blood Count 3.03x10^6/uL (4.30-5.70) Hemoglobin 8.9g/dL (13.0-17.5) Hematocrit 27.4% (39.0-53.0) Mean Corpuscular Volume 91fL (79-100) Mean Corpuscular Hemoglobin 29pg (25-35) Mean Corpuscular Hemoglobin Concent 32g/dL (31-37) Red Cell Distribution Width 13.9% (11.5-14.5) Platelet Count 405x10^3/uL (140-400) Neutrophils (%) (Auto) 77% (31-73) Lymphocytes (%) (Auto) 7% (24-48) Monocytes (%) (Auto) 15% (0-9) Eosinophils (%) (Auto) 0% (0-3) Basophils (%) (Auto) 1% (0-3) Neutrophils # (Auto) 14.9x10^3uL (1.8-7.7) Lymphocytes # (Auto) 1.4x10^3/uL (1.0-4.8) Monocytes # (Auto) 2.9x10^3/uL (0.0-1.1) Eosinophils # (Auto) 0.0x10^3/uL (0.0-0.7) Basophils # (Auto) 0.1x10^3/uL (0.0-0.2) Sodium Level 144mmol/L (136-145) Potassium Level 4.0mmol/L (3.5-5.1) Chloride Level 105mmol/L (98-107) Carbon Dioxide Level 24mmol/L (21-32) Anion Gap 15 (6-14) Blood Urea Nitrogen 13mg/dL (8-26) Creatinine 1.8mg/dL (0.7-1.3) Estimated GFR (Cockcroft-Gault) 48.8 Glucose Level 97mg/dL (70-99) Calcium Level 8.6mg/dL (8.5-10.1) Review of Systems Review of Systems Very hungry Throat soreness Denies chest pain, SOA Assessment and Plan Assessmemt and Plan Assessment: - Weakness, dehydration - Cardiac arrest PEA (12/08); TTE EF of 30-35%, s/p left heart cath 12/12/16 - Acute respiratory failure, likely multifactorial; On mechanical Ventilation ( 12/08)- possible aspiration pneumonia. Possible ARDS vs pulmonary edema vs PNA - ASHLEY/ATN, initiating hemodialysis - Anemia - Septic shock, multiorgan failure, Off pressor support - Cardiomyopathy - Metabolic acidosis - Polysubstance abuse - Elevated troponin - Hypocalcemia. Plan - Speech eval pending. Advance diet as tolerated after evaluation. - Extubated yesterday after hemodialysis, no breathing problems since. - Hgb 8.2 this morning. Patient on hemodialysis and tolerating treatment well. Will continue to monitor and correct as needed. - Antibiotic management per I.D. Urine culture negative to date. Possible fungus present on bronch wash. - Continue monitoring in ICU - Recheck labs in a.m. - LTAC eval in progress - Continue Lovenox 40mg daily for DVT ppx - Appreciate subspecialty input Problems: Comment Review of Relevant I have reviewed the following items immanuel (where applicable) has been applied. Labs Laboratory Tests Test 12/16/16 12:00 12/16/16 12:19 12/16/16 17:50 12/16/16 18:28 Potassium Level 4.5mmol/L (3.5-5.1) 4.5mmol/L (3.5-5.1) Glucose (Fingerstick) 113mg/dL (70-99) 115mg/dL (70-99) Test 12/16/16 19:30 12/17/16 05:00 12/17/16 08:00 12/17/16 08:25 O2 Saturation 99% (92-99) 91% (92-99) Arterial Blood pH 7.42 (7.35-7.45) 7.43 (7.35-7.45) Arterial Blood pCO2 at Patient Temp 46mmHg (35-46) 48mmHg (35-46) Arterial Blood pO2 at Patient Temp 162mmHg (75-108) 57mmHg (75-108) Arterial Blood HCO3 29mmol/L (21-28) 31mmol/L (21-28) Arterial Blood Base Excess 5mmol/L (-3-3) 5mmol/L (-3-3) FiO2 100 40 White Blood Count 17.2x10^3/uL (4.0-11.0) Red Blood Count 2.78x10^6/uL (4.30-5.70) Hemoglobin 8.2g/dL (13.0-17.5) Hematocrit 25.5% (39.0-53.0) Mean Corpuscular Volume 92fL (79-100) Mean Corpuscular Hemoglobin 30pg (25-35) Mean Corpuscular Hemoglobin Concent 32g/dL (31-37) Red Cell Distribution Width 14.1% (11.5-14.5) Platelet Count 334x10^3/uL (140-400) Neutrophils (%) (Auto) 72% (31-73) Lymphocytes (%) (Auto) 11% (24-48) Monocytes (%) (Auto) 16% (0-9) Eosinophils (%) (Auto) 1% (0-3) Basophils (%) (Auto) 1% (0-3) Neutrophils # (Auto) 12.3x10^3uL (1.8-7.7) Lymphocytes # (Auto) 1.8x10^3/uL (1.0-4.8) Monocytes # (Auto) 2.7x10^3/uL (0.0-1.1) Eosinophils # (Auto) 0.2x10^3/uL (0.0-0.7) Basophils # (Auto) 0.1x10^3/uL (0.0-0.2) Sodium Level 141mmol/L (136-145) Potassium Level 4.0mmol/L (3.5-5.1) Chloride Level 103mmol/L (98-107) Carbon Dioxide Level 31mmol/L (21-32) Anion Gap 7 (6-14) Blood Urea Nitrogen 14mg/dL (8-26) Creatinine 1.7mg/dL (0.7-1.3) Estimated GFR (Cockcroft-Gault) 52.1 Glucose Level 116mg/dL (70-99) Calcium Level 8.2mg/dL (8.5-10.1) Phosphorus Level 2.3mg/dL (2.6-4.7) Creatine Kinase 165U/L (39-308) XO-Nul-V-Type Natriuretic Peptide 45307bc/mL (0-124) Albumin 2.9g/dL (3.4-5.0) Glucose (Fingerstick) 119mg/dL (70-99) Test 12/17/16 10:00 12/17/16 11:49 12/17/16 17:13 12/17/16 19:34 O2 Saturation 91% (92-99) 87% (92-99) Arterial Blood pH 7.48 (7.35-7.45) 7.50 (7.35-7.45) Arterial Blood pCO2 at Patient Temp 40mmHg (35-46) 40mmHg (35-46) Arterial Blood pO2 at Patient Temp 57mmHg (75-108) 50mmHg (75-108) Arterial Blood HCO3 29mmol/L (21-28) 30mmol/L (21-28) Arterial Blood Base Excess 5mmol/L (-3-3) 6mmol/L (-3-3) FiO2 40 40 Glucose (Fingerstick) 109mg/dL (70-99) 96mg/dL (70-99) Test 12/18/16 06:00 White Blood Count 19.4x10^3/uL (4.0-11.0) Red Blood Count 3.03x10^6/uL (4.30-5.70) Hemoglobin 8.9g/dL (13.0-17.5) Hematocrit 27.4% (39.0-53.0) Mean Corpuscular Volume 91fL (79-100) Mean Corpuscular Hemoglobin 29pg (25-35) Mean Corpuscular Hemoglobin Concent 32g/dL (31-37) Red Cell Distribution Width 13.9% (11.5-14.5) Platelet Count 405x10^3/uL (140-400) Neutrophils (%) (Auto) 77% (31-73) Lymphocytes (%) (Auto) 7% (24-48) Monocytes (%) (Auto) 15% (0-9) Eosinophils (%) (Auto) 0% (0-3) Basophils (%) (Auto) 1% (0-3) Neutrophils # (Auto) 14.9x10^3uL (1.8-7.7) Lymphocytes # (Auto) 1.4x10^3/uL (1.0-4.8) Monocytes # (Auto) 2.9x10^3/uL (0.0-1.1) Eosinophils # (Auto) 0.0x10^3/uL (0.0-0.7) Basophils # (Auto) 0.1x10^3/uL (0.0-0.2) Sodium Level 144mmol/L (136-145) Potassium Level 4.0mmol/L (3.5-5.1) Chloride Level 105mmol/L (98-107) Carbon Dioxide Level 24mmol/L (21-32) Anion Gap 15 (6-14) Blood Urea Nitrogen 13mg/dL (8-26) Creatinine 1.8mg/dL (0.7-1.3) Estimated GFR (Cockcroft-Gault) 48.8 Glucose Level 97mg/dL (70-99) Calcium Level 8.6mg/dL (8.5-10.1) Laboratory Tests Test 12/17/16 11:49 12/17/16 17:13 12/17/16 19:34 12/18/16 06:00 Glucose (Fingerstick) 109mg/dL (70-99) 96mg/dL (70-99) O2 Saturation 87% (92-99) Arterial Blood pH 7.50 (7.35-7.45) Arterial Blood pCO2 at Patient Temp 40mmHg (35-46) Arterial Blood pO2 at Patient Temp 50mmHg (75-108) Arterial Blood HCO3 30mmol/L (21-28) Arterial Blood Base Excess 6mmol/L (-3-3) FiO2 40 White Blood Count 19.4x10^3/uL (4.0-11.0) Red Blood Count 3.03x10^6/uL (4.30-5.70) Hemoglobin 8.9g/dL (13.0-17.5) Hematocrit 27.4% (39.0-53.0) Mean Corpuscular Volume 91fL (79-100) Mean Corpuscular Hemoglobin 29pg (25-35) Mean Corpuscular Hemoglobin Concent 32g/dL (31-37) Red Cell Distribution Width 13.9% (11.5-14.5) Platelet Count 405x10^3/uL (140-400) Neutrophils (%) (Auto) 77% (31-73) Lymphocytes (%) (Auto) 7% (24-48) Monocytes (%) (Auto) 15% (0-9) Eosinophils (%) (Auto) 0% (0-3) Basophils (%) (Auto) 1% (0-3) Neutrophils # (Auto) 14.9x10^3uL (1.8-7.7) Lymphocytes # (Auto) 1.4x10^3/uL (1.0-4.8) Monocytes # (Auto) 2.9x10^3/uL (0.0-1.1) Eosinophils # (Auto) 0.0x10^3/uL (0.0-0.7) Basophils # (Auto) 0.1x10^3/uL (0.0-0.2) Sodium Level 144mmol/L (136-145) Potassium Level 4.0mmol/L (3.5-5.1) Chloride Level 105mmol/L (98-107) Carbon Dioxide Level 24mmol/L (21-32) Anion Gap 15 (6-14) Blood Urea Nitrogen 13mg/dL (8-26) Creatinine 1.8mg/dL (0.7-1.3) Estimated GFR (Cockcroft-Gault) 48.8 Glucose Level 97mg/dL (70-99) Calcium Level 8.6mg/dL (8.5-10.1) Microbiology 12/07/16 Blood Culture - Final, Complete NO GROWTH AFTER 5 DAYS 12/07/16 Stool Culture - Final, Complete 12/07/16 Stool Culture Result 1 (NEFTALI) - Final, Complete 12/07/16 Campylobacter Antigen Assay - Final, Complete 12/07/16 Campylobactor Result 1 - Final, Complete 12/07/16 Shiga Toxin Test - Final, Complete 12/12/16 AFB Specimen Processing Tissue - Final, Resulted 12/12/16 Acid Fast Bacilli Culture, Resulted Pending 12/12/16 Gram Stain - Final, Resulted 12/12/16 Fungal Culture, Resulted Pending 12/12/16 Fungal Culture Result 1, Resulted Pending 12/12/16 Urine Culture - Final, Complete 12/12/16 Urine Culture Result 1 (NEFTALI) - Final, Complete Medications Current Medications Ketorolac Tromethamine 30 mg 30 mg 1X ONCE IV Last administered on 12/07/16 14:34; Start 12/07/16 at 14:30; Stop 12/07/16 at 14:31; Status DC Sodium Chloride 1,000 ml @ 1,000 mls/hr 1X ONCE IV Last administered on 14:34; Start 12/07/16 at 14:30; Stop 12/07/16 at 15:29; Status DC Ceftriaxone Sodium 1 gm/ Sodium Chloride 50 ml @ 100 mls/hr Q24H IV ; Start at 15:30; Stop 12/08/16 at 15:30; Status DC Azithromycin 250 ml @ 250 mls/hr 1X ONCE IV Last administered on 12/07/16 15 :48; Start 12/07/16 at 15:15; Stop 12/07/16 at 16:14; Status DC Sodium Chloride 1,000 ml @ 1,000 mls/hr 1X ONCE IV Last administered on 16:09; Start 12/07/16 at 15:15; Stop 12/07/16 at 16:14; Status DC Ceftriaxone Sodium 50 ml @ 100 mls/hr 1X ONCE IV Last administered on 15:29; Start 12/07/16 at 15:15; Stop 12/07/16 at 15:44; Status DC Sodium Chloride (Iv Sodium Chloride 0.9% 1000ml Bag) 1,000 ml @ 150 mls/hr 1X ONCE IV Last administered on 12/07/16 18:10; Start 12/07/16 at 15:15; Stop 11/11 at 21:54; Status DC Famotidine (Pepcid) 20 mg 1X ONCE IVP Last administered on 12/07/16 15:48; Start 12/07/16 at 15:45; Stop 12/07/16 at 15:46; Status DC Ondansetron HCl 4 mg 4 mg 1X ONCE IV Last administered on 12/07/16 16:09; Start 12/07/16 at 16:15; Stop 12/07/16 at 16:16; Status DC Sodium Chloride (Iv Sodium Chloride 0.9% 1000ml Bag) 1,000 ml @ 150 mls/hr Q6H40M IV Last administered on 12/08/16 06:38; Start 12/07/16 at 16:30; Stop 12/08/16 at 14:21; Status DC Ondansetron HCl (Zofran) 4 mg PRN Q6HRS PRN IV NAUSEA/VOMITING; Start 12/07/16 at 16:30 Acetaminophen (Tylenol) 500 mg PRN Q6HRS PRN PO MILD PAIN / TEMP Last administered on 12/09/16 15:04; Start 12/07/16 at 16:30 Morphine Sulfate 2 mg PRN Q2HR PRN IV PAIN Last administered on 12/08/16 05:28 ; Start 12/07/16 at 16:30 Zolpidem Tartrate (Ambien) 5 mg PRN QHS PRN PO INSOMNIA Last administered on 01:06; Start 12/07/16 at 16:30; Stop 12/08/16 at 10:03; Status DC Methocarbamol (Robaxin) 500 mg QID PO Last administered on 12/07/16 21:19; Start 12/07/16 at 17:00; Stop 12/08/16 at 10:03; Status DC Oxycodone/ Acetaminophen (Percocet 5/325) 1 tab PRN Q4HRS PRN PO SEVERE PAIN; Start 12/07/16 at 16:30 Tramadol HCl (Ultram) 50 mg PRN Q6HRS PRN PO MODERATE PAIN Last administered on 12/07/16 17:11; Start 12/07/16 at 16:30 Nicotine (Nicoderm Cq 21mg) 1 patch PRN DAILY PRN TD SMOKING CESSATION; Start 12/07/16 at 16:30 Info (Do NOT chart on this placeholder) 1 each 1X ONCE MC ; Start 12/07/16 at 22:45; Stop 12/07/16 at 22:46; Status UNV Pneumococcal Polyvalent Vaccine (Do NOT chart on this placeholder) 1 each 1X ONCE MC ; Start 12/07/16 at 22:45; Stop 12/07/16 at 22:46; Status UNV Influenza Virus Vaccine Quadrival (Fluarix Quad [id number] Syringe) 0.5 ml ONCE ONCE VAX IM ; Start 12/08/16 at 09:00; Stop 12/08/16 at 09:01; Status DC Pneumococcal Polyvalent Vaccine (Pneumovax 23) 0.5 ml ONCE ONCE VAX IM ; Start 12/08/16 at 09:00; Stop 12/08/16 at 09:01; Status DC Labetalol HCl (Normodyne) 10 mg 1X ONCE IVP Last administered on 12/08/16 08: 56; Start 12/08/16 at 08:30; Stop 12/08/16 at 08:35; Status DC Alprazolam (Xanax) 0.5 mg 1X ONCE PO Last administered on 12/08/16 08:40; Start 12/08/16 at 08:45; Stop 12/08/16 at 08:46; Status DC Aspirin (Children'S Aspirin) 324 mg 1X ONCE PO Last administered on 12/08/16 13:44; Start 12/08/16 at 09:30; Stop 12/08/16 at 09:31; Status DC Aspirin (Jada Aspirin) 325 mg DAILYWBKFT PO ; Start 12/09/16 at 08:00; Stop at 08:00; Status DC Heparin Sodium (Porcine) 4000 unit 4,000 unit 1X ONCE IV ; Start 12/08/16 at 09 :30; Stop 12/08/16 at 14:21; Status DC Midazolam HCl 100 ml @ As Directed STK-MED ONCE IV ; Start 12/08/16 at 09:52; Stop 12/08/16 at 09:53; Status DC Propofol (Diprivan) 100 ml @ 0 mls/hr CONT PRN IV SEE I/O RECORD Last administered on 12/08/16 23:49; Start 12/08/16 at 10:00 Famotidine (Pepcid) 20 mg QHS IVP Last administered on 12/17/16 21:24; Start 12/08/16 at 21:00 Heparin Sodium (Porcine) 5000 unit 5,000 unit Q8HRS SQ ; Start 12/08/16 at 14:00 ; Stop 12/08/16 at 14:00; Status DC Norepinephrine Bitartrate 8 mg/ Sodium Chloride 258 ml @ 1.93 mls/hr CONT PRN IV SEE I/O RECORD; Start 12/08/16 at 10:15; Status Cancel Dopamine HCl/ Dextrose 250 ml @ As Directed STK-MED ONCE IV ; Start 12/08/16 at 10:07; Stop 12/08/16 at 10:08; Status DC Norepinephrine Bitartrate 8 mg/ Sodium Chloride 258 ml @ 0 mls/hr CONT PRN IV SEE I/O RECORD Last administered on 12/09/16 08:46; Start 12/08/16 at 10:15; Stop 12/09/16 at 11:47; Status DC Dopamine HCl/ Dextrose 250 ml @ 10.084 mls/ hr CONT PRN IV SEE I/O RECORD Last administered on 12/08/16 10:00; Start 12/08/16 at 10:15 Sodium Bicarbonate/ Sodium Chloride (Iv Sodium Chloride 0.45%) 1,050 ml @ 200 mls/hr Q5H15M IV Last administered on 12/09/16 05:11; Start 12/08/16 at 10:30 ; Stop 12/09/16 at 08:28; Status DC Phenylephrine HCl 1 mg STK-MED ONCE IV ; Start 12/08/16 at 10:25; Stop 12/08/16 at 10:26; Status DC Aspirin 300 mg 300 mg 1X ONCE AL ; Start 12/08/16 at 10:45; Stop 12/08/16 at 10 :46; Status DC Sodium Chloride 1,000 ml @ 1,000 mls/hr 1X ONCE IV Last administered on 10:00; Start 12/08/16 at 11:45; Stop 12/08/16 at 12:44; Status DC Sodium Chloride (Iv Sodium Chloride 0.9% 1000ml Bag) 1,000 ml @ 1,000 mls/hr 1X ONCE IV Last administered on 12/08/16 10:00; Start 12/08/16 at 11:45; Stop 12/08/16 at 12:44; Status DC Albuterol/ Ipratropium (Duoneb) 3 ml RTQID NEB Last administered on 12/08/16 19:44; Start 12/08/16 at 12:30; Stop 12/09/16 at 05:17; Status DC Budesonide 0.5 mg 0.5 mg RTBID NEB Last administered on 12/17/16 15:40; Start 12/08/16 at 12:30 Sodium Chloride 1,000 ml @ 1,000 mls/hr 1X ONCE IV Last administered on 11:00; Start 12/08/16 at 12:15; Stop 12/08/16 at 13:14; Status DC Sodium Chloride 1,000 ml @ 1,000 mls/hr 1X ONCE IV Last administered on 11:00; Start 12/08/16 at 12:15; Stop 12/08/16 at 13:14; Status DC Heparin Sodium/ Dextrose 500 ml @ 0 mls/hr CONT PRN IV SEE I/O RECORD Last administered on 12/09/16 13:11; Start 12/08/16 at 12:45; Stop 12/13/16 at 13:10 ; Status DC Heparin Sodium (Porcine) 1,350 unit PRN Q6HRS PRN IV FOR UFH LEVEL LESS THAN 0.2 Last administered on 12/09/16 05:47; Start 12/08/16 at 12:45; Stop at 13:10; Status DC Etomidate (Amidate) 20 mg STK-MED ONCE IV ; Start 12/08/16 at 13:00; Stop at 13:01; Status DC Succinylcholine Chloride 200 mg 200 mg STK-MED ONCE .ROUTE ; Start 12/08/16 at 13:00; Stop 12/08/16 at 13:01; Status DC Piperacillin Sod/ Tazobactam Sod 3.375 gm/Sodium Chloride 50 ml @ 100 mls/hr Q6HRS IV ; Start 12/08/16 at 18:00; Stop 12/08/16 at 18:00; Status DC Vancomycin HCl 1 gm/Sodium Chloride 250 ml @ 250 mls/hr 1X ONCE IV Last administered on 12/08/16 14:21; Start 12/08/16 at 14:00; Stop 12/08/16 at 14:59 ; Status DC Piperacillin Sod/ Tazobactam Sod 2.25 gm/Sodium Chloride 50 ml @ 100 mls/hr Q6HRS IV Last administered on 12/09/16 06:17; Start 12/08/16 at 14:00; Stop at 08:25; Status DC Midazolam HCl 100 ml @ 0 mls/hr CONT PRN IV SEE I/O RECORD Last administered on 12/17/16 04:53; Start 12/08/16 at 10:30 Fentanyl Citrate (Fentanyl 600 Mcg/30 ml INSTALLERS MECHANICAL) 30 ml @ 0 mls/hr CONT PRN IV PROTOCOL Last administered on 12/17/16 04:54; Start 12/09/16 at 05:15 Fentanyl Citrate (Fentanyl 2ml Vial) 25 mcg PRN Q1HR PRN IV COMM; Start at 05:15 Fentanyl Citrate (Fentanyl 2ml Vial) 50 mcg PRN Q1HR PRN IV COMM; Start at 05:15 Ipratropium Barclay (Atrovent) 0.5 mg RTQID NEB Last administered on 12/18/16 08:50; Start 12/09/16 at 08:00 Aspirin (Children'S Aspirin) 81 mg DAILYWBKFT PO Last administered on 08:37; Start 12/09/16 at 08:00 Chlorhexidine Gluconate 15 ml 15 ml BID MM Last administered on 12/17/16 21:23 ; Start 12/09/16 at 09:00 Sodium Bicarbonate 150 meq/Dextrose 1,150 ml @ 100 mls/hr [id number] IV Last administered on 12/10/16 09:34; Start 12/09/16 at 09:00; Stop 12/10/16 at 12:14 ; Status DC Piperacillin Sod/ Tazobactam Sod 3.375 gm/Sodium Chloride 50 ml @ 100 mls/hr Q6HRS IV Last administered on 12/11/16 06:01; Start 12/09/16 at 12:00; Stop at 07:47; Status DC Norepinephrine Bitartrate 16 mg/ Sodium Chloride 266 ml @ 0.99 mls/hr CONT PRN IV SEE I/O RECORD Last administered on 12/09/16 20:36; Start 12/09/16 at 12 :00 Doxycycline Hyclate/Dextrose 100 ml @ 50 mls/hr Q12HR IV Last administered on 12/13/16 20:50; Start 12/09/16 at 13:00; Stop 12/14/16 at 08:34; Status DC Atropine Sulfate 0.5 mg STK-MED ONCE .ROUTE ; Start 12/08/16 at 10:30; Stop at 13:18; Status DC Epinephrine HCl 3 mg STK-MED ONCE .ROUTE ; Start 12/08/16 at 10:30; Stop at 13:18; Status DC Calcium Gluconate 1000 mg 1,000 mg 1X ONCE IVP ; Start 12/10/16 at 10:00; Stop 12/10/16 at 10:01; Status UNV Magnesium Sulfate/ Dextrose 50 ml @ 25 mls/hr 1X ONCE IV Last administered on 12/10/16 11:40; Start 12/10/16 at 12:00; Stop 12/10/16 at 13:59; Status DC Calcium Gluconate 1000 mg/Sodium Chloride 110 ml @ 220 mls/hr 1X ONCE IV Last administered on 12/10/16 11:36; Start 12/10/16 at 12:00; Stop 12/10/16 at 12:29; Status DC Magnesium Sulfate/ Dextrose 50 ml @ 25 mls/hr PRN DAILY PRN IV for Mag < 1.7 on am labs; Start 12/10/16 at 12:15; Stop 12/13/16 at 09:57; Status DC Amino Acids/ Glycerin/ Electrolytes 1,000 ml @ 80 mls/hr [id number] IV ; Start at 12:30; Stop 12/10/16 at 12:30; Status DC Albumin Human (Albuminar) 100 ml @ 100 mls/hr TID IV ; Start 12/10/16 at 14:00 ; Stop 12/10/16 at 14:00; Status DC Calcium Gluconate 2000 mg 2,000 mg TID IVP ; Start 12/10/16 at 14:00; Stop 12/10 at 14:00; Status DC Piperacillin Sod/ Tazobactam Sod 2.25 gm/Sodium Chloride 50 ml @ 100 mls/hr Q6HRS IV Last administered on 12/18/16 05:58; Start 12/11/16 at 12:00; Stop at 07:17; Status DC Linezolid (Zyvox Premix) 300 ml @ 300 mls/hr Q12HR IV Last administered on 21:24; Start 12/11/16 at 09:00; Stop 12/18/16 at 07:17; Status DC Info 1 each 1 each PRN DAILY PRN MC SEE COMMENTS Last administered on 08:21; Start 12/11/16 at 08:15; Stop 12/13/16 at 13:13; Status DC Potassium Phosphate/Sodium Chloride (Potassium Phosphate/Iv Sodium Chloride 0.9 % 100ml) 104.5333 ml @ 52.267 m... Q2H IV Last administered on 12/11/16 17:22 ; Start 12/11/16 at 09:00; Stop 12/11/16 at 14:59; Status DC Furosemide 20 mg 20 mg 1X ONCE IVP Last administered on 12/11/16 11:10; Start 12/11/16 at 10:00; Stop 12/11/16 at 10:03; Status DC Dobutamine HCl/ Dextrose 250 ml @ 0 mls/hr CONT PRN IV SEE I/O RECORD Last administered on 12/11/16 15:05; Start 12/11/16 at 14:45 Magnesium Sulfate/ Dextrose 50 ml @ 25 mls/hr PRN DAILY PRN IV for Mag < 1.7 on am labs; Start 12/12/16 at 08:45; Stop 12/13/16 at 09:57; Status DC Potassium Chloride 50 ml @ 50 mls/hr PRN Q6HRS PRN IV For K < 3.7; Start at 08:45; Stop 12/13/16 at 09:57; Status DC Potassium Chloride (KCl Premix 20meq) 50 ml @ 50 mls/hr PRN Q2HR PRN IV total of 40mEq for K < 3.5; Start 12/12/16 at 08:45; Stop 12/13/16 at 09:57; Status DC Acetylcysteine 1200 mg 1,200 mg BID PO Last administered on 12/13/16 20:50; Start 12/12/16 at 09:00; Stop 12/14/16 at 08:17; Status DC Potassium Chloride (KCl Premix 20meq) 50 ml @ 50 mls/hr Q1H IV Last administered on 12/12/16 13:16; Start 12/12/16 at 09:00; Stop 12/12/16 at 10:59 ; Status DC Lidocaine/Sodium Bicarbonate 20 ml 20 ml STK-MED ONCE IJ ; Start 12/12/16 at 12: 13; Stop 12/12/16 at 12:14; Status DC Heparin Sodium/ Sodium Chloride 500 ml @ As Directed STK-MED ONCE .ROUTE ; Start 12/12/16 at 12:14; Stop 12/12/16 at 12:15; Status DC Lidocaine/Sodium Bicarbonate (Buffered Lidocaine 1%) 3 ml 1X ONCE IJ Last administered on 12/12/16 13:08; Start 12/12/16 at 12:15; Stop 12/12/16 at 12:17 ; Status DC Heparin Sodium (Porcine) 2,500 unit 1X ONCE INT CAT Last administered on 13:08; Start 12/12/16 at 12:15; Stop 12/12/16 at 12:17; Status DC Heparin Sodium/ Sodium Chloride 60 unit 60 unit 1X ONCE IV Last administered on 12/12/16 12:15; Start 12/12/16 at 12:15; Stop 12/12/16 at 12:17; Status DC Heparin Sodium/ Sodium Chloride 1,500 ml @ As Directed STK-MED ONCE .ROUTE ; Start 12/12/16 at 15:03; Stop 12/12/16 at 15:04; Status DC Lidocaine HCl 20 ml STK-MED ONCE .ROUTE ; Start 12/12/16 at 15:03; Stop at 15:04; Status DC Iodixanol (Visipaque 320) 100 ml STK-MED ONCE .ROUTE ; Start 12/12/16 at 15:04; Stop 12/12/16 at 15:05; Status DC Heparin Sodium/ Sodium Chloride 1,000 unit 1X ONCE IART Last administered on 15:41; Start 12/12/16 at 15:30; Stop 12/12/16 at 15:32; Status DC Iodixanol (Visipaque 320) 100 ml 1X ONCE IART Last administered on 12/12/16 15:41; Start 12/12/16 at 15:30; Stop 12/12/16 at 15:32; Status DC Lidocaine HCl 4 ml 4 ml 1X ONCE IJ Last administered on 12/12/16 15:41; Start 12/12/16 at 15:30; Stop 12/12/16 at 15:32; Status DC Potassium Chloride 50 ml @ 50 mls/hr 1X ONCE IV Last administered on 04:13; Start 12/13/16 at 04:15; Stop 12/13/16 at 05:14; Status DC Potassium Chloride 50 ml @ 50 mls/hr 1X ONCE IV Last administered on 03:13; Start 12/13/16 at 03:15; Stop 12/13/16 at 04:14; Status DC Potassium Chloride 50 ml @ 50 mls/hr Q1H IV ; Start 12/13/16 at 09:00; Stop at 09:00; Status DC Furosemide 100 mg/ Sodium Chloride 100 ml @ 0 mls/hr CONT PRN IV SEE I/O RECORD Last administered on 12/13/16t 11:43; Start 12/13/16 at 10:00; Stop 12/14 at 08:17; Status DC Magnesium Sulfate/ Dextrose 50 ml @ 25 mls/hr PRN DAILY PRN IV for Mag < 1.7 on am labs; Start 12/13/16 at 10:00 Potassium Chloride 50 ml @ 50 mls/hr PRN Q6HRS PRN IV For K < 3.7 Last administered on 12/15/16t 01:08; Start 12/13/16 at 10:00 Potassium Chloride 50 ml @ 50 mls/hr PRN Q2HR PRN IV total of 40mEq for K < 3.5; Start 12/13/16 at 10:00 Potassium Phosphate 40 mmol/ Sodium Chloride 113.3333 ml @ 52.267 m... PRN 1X PRN IV SEE COMMENTS; Start 12/13/16 at 10:00; Stop 12/13/16 at 23:59; Status DC Sodium Chloride 1,000 ml @ 1,000 mls/hr Q1H PRN IV hypotension; Start 12/13/16 at 14:51; Stop 12/13/16 at 20:50; Status DC Sodium Chloride (Iv Sodium Chloride 0.9% 1000ml Bag) 1,000 ml @ 400 mls/hr Q2H30M PRN IV PATENCY; Start 12/13/16 at 14:51; Stop 12/14/16 at 02:50; Status DC Info (PHARMACY MONITORING -- do not chart) 1 each PRN DAILY PRN MC SEE COMMENTS ; Start 12/13/16 at 15:00; Status UNV Info 1 each 1 each PRN DAILY PRN MC SEE COMMENTS; Start 12/13/16 at 15:00; Stop 12/15/16 at 08:35; Status DC Sodium Phosphate 0.4 mmol/Dextrose 1 ml @ 50 mls/hr BID IV ; Start 12/14/16 at 09:00; Status UNV Albumin Human (Albuminar) 100 ml @ 100 mls/hr TID IV Last administered on 12/15 21:14; Start 12/14/16 at 09:00; Stop 12/15/16 at 21:59; Status DC Darbepoetin Koffi 60 mcg 60 mcg [id number] SQ Last administered on 12/14/16 21:07 ; Start 12/14/16 at 21:00 Sodium Phosphate/ Dextrose 113.3333 ml @ 28.333 m... Q4H IV Last administered on 12/14/16 14:59; Start 12/14/16 at 09:00; Stop 12/14/16 at 16:59; Status DC Info (PHARMACY MONITORING -- do not chart) 1 each PRN DAILY PRN MC SEE COMMENTS ; Start 12/14/16 at 11:00; Status UNV Info 1 each 1 each PRN DAILY PRN MC SEE COMMENTS; Start 12/14/16 at 11:00; Status UNV Albumin Human 200 ml @ 200 mls/hr 1X PRN PRN IV Hypotension; Start 12/14/16 at 13:30; Stop 12/14/16 at 19:00; Status DC Sodium Chloride 1,000 ml @ 1,000 mls/hr Q1H PRN IV hypotension; Start 12/15/16 at 06:32; Stop 12/15/16 at 09:09; Status DC Albumin Human 200 ml @ 200 mls/hr 1X PRN PRN IV Hypotension Last administered on 12/15/16 07:38; Start 12/15/16 at 06:45; Stop 12/15/16 at 12:44; Status DC Sodium Chloride (Iv Sodium Chloride 0.9% 1000ml Bag) 1,000 ml @ 400 mls/hr Q2H30M PRN IV PATENCY; Start 12/15/16 at 06:32; Stop 12/15/16 at 18:31; Status DC Info 1 each 1 each PRN DAILY PRN MC SEE COMMENTS; Start 12/15/16 at 06:45 Piperacillin Sod/ Tazobactam Sod 2.25 gm/Sodium Chloride 50 ml @ 100 mls/hr Q8HRS IV ; Start 12/15/16 at 14:00; Stop 12/15/16 at 14:00; Status DC Piperacillin Sod/ Tazobactam Sod 2.25 gm/Sodium Chloride 50 ml @ 100 mls/hr Q6HRS IV ; Start 12/15/16 at 12:00; Status Cancel Dexmedetomidine HCl 200 mcg/ Sodium Chloride 50 ml @ 0 mls/hr CONT PRN IV PER PROTOCOL Last administered on 12/17/16 18:11; Start 12/16/16 at 12:15; Stop at 07:51; Status DC Sodium Chloride (Iv Sodium Chloride 0.9% 500ml Bag) 500 ml @ 500 mls/hr 1X PRN PRN IV SEE COMMENTS; Start 12/16/16 at 12:15 Atropine Sulfate 0.5 mg 0.5 mg PRN Q5MIN PRN IV SEE COMMENTS; Start 12/16/16 at 12:15 Sodium Chloride 1,000 ml @ 1,000 mls/hr Q1H PRN IV hypotension; Start 12/16/16 at 20:04; Stop 12/17/16 at 02:03; Status DC Albumin Human (Albuminar) 200 ml @ 200 mls/hr 1X PRN PRN IV Hypotension Last administered on 12/16/16 20:30; Start 12/16/16 at 20:15; Stop 12/17/16 at 02:14 ; Status DC Sodium Chloride (Normal Saline Flush) 10 ml 1X PRN PRN IV AP catheter pack; Start 12/16/16 at 20:15; Stop 12/17/16 at 20:14; Status DC Sodium Chloride 10 ml 10 ml 1X PRN PRN IV REELING OPERATOR catheter pack; Start 12/16/16 at 20:15; Stop 12/17/16 at 20:14; Status DC Sodium Chloride (Iv Sodium Chloride 0.9% 1000ml Bag) 1,000 ml @ 400 mls/hr Q2H30M PRN IV PATENCY; Start 12/16/16 at 20:04; Stop 12/17/16 at 08:03; Status DC Info (PHARMACY MONITORING -- do not chart) 1 each PRN DAILY PRN MC SEE COMMENTS ; Start 12/16/16 at 20:15; Status UNV Info (PHARMACY MONITORING -- do not chart) 1 each PRN DAILY PRN MC SEE COMMENTS ; Start 12/16/16 at 20:15; Status UNV Enoxaparin Sodium 40 mg 40 mg Q24H SQ Last administered on 12/17/16 17:10; Start 12/17/16 at 16:00 Albumin Human (Albuminar) 100 ml @ 100 mls/hr 1X ONCE IV ; Start 12/17/16 at 20:00; Stop 12/17/16 at 20:59; Status DC Active Scripts Active Ultram (Tramadol Hcl) 50 Mg Tablet 50 Mg PO Q6H PRN Robaxin (Methocarbamol) 500 Mg Tablet 500 Mg PO QID Reported Percocet 5-325 Mg Tablet (Oxycodone/Acetaminophen) 1 Each Tablet 1-2 Tab PO Q4HRS Vitals/I & O Vital Sign - Last 24 Hours 12/17/16 12/17/16 12/17/16 12/17/16 11:28 12:00 12:00 13:00 Temp 97.4 97.4 Pulse 74 78 Resp 34 32 B/P 130/77 135/79 Pulse Ox 98 97 98 O2 Delivery Ventilator Mechanical Ventilator Ventilator Ventilator 12/17/16 12/17/16 12/17/16 12/17/16 13:43 14:00 15:00 15:43 Pulse 72 82 Resp 28 30 B/P 138/81 165/96 Pulse Ox 94 96 86 98 O2 Delivery Ventilator Ventilator Ventilator Ventilator 12/17/16 12/17/16 12/17/16 12/17/16 16:00 16:00 17:00 17:02 Temp 97.9 97.9 Pulse 84 64 Resp 36 24 B/P 151/91 117/74 Pulse Ox 91 96 94 O2 Delivery Mechanical Ventilator Ventilator Ventilator Ventilator 12/17/16 12/17/16 12/17/16 12/17/16 18:00 19:00 20:00 20:00 Temp 97.9 97.9 Pulse 66 63 77 Resp 25 28 26 B/P 142/87 128/79 136/78 Pulse Ox 96 96 96 O2 Delivery Ventilator Ventilator Venturi Mask Venturi Mask O2 Flow Rate 15.0 15.0 12/17/16 12/17/16 12/17/16 12/17/16 20:44 21:00 22:00 23:00 Pulse 73 81 81 Resp 24 22 20 B/P 123/79 132/89 150/86 Pulse Ox 100 96 100 97 O2 Delivery Venturi Mask Venturi Mask Venturi Mask Nasal Cannula O2 Flow Rate 15.0 12.0 12.0 5.0 12/18/16 12/18/16 12/18/16 12/18/16 00:00 00:00 01:00 02:00 Temp 98.7 98.7 Pulse 84 67 82 Resp 24 B/P 163/84 158/84 157/84 Pulse Ox 94 93 95 O2 Delivery Nasal Cannula Nasal Cannula Nasal Cannula Nasal Cannula O2 Flow Rate 5.0 5.0 5.0 5.0 12/18/16 12/18/16 12/18/16 12/18/16 03:00 04:00 04:00 05:00 Temp 98.2 98.2 Pulse 76 85 82 Resp 21 B/P 150/77 137/74 151/83 Pulse Ox 96 96 93 O2 Delivery Nasal Cannula Nasal Cannula Nasal Cannula Nasal Cannula O2 Flow Rate 5.0 5.0 5.0 3.0 12/18/16 12/18/16 12/18/16 12/18/16 06:00 07:00 08:00 08:00 Temp 98.2 98.2 Pulse 86 80 82 Resp 22 30 B/P 165/84 160/81 161/81 Pulse Ox 92 92 92 O2 Delivery Nasal Cannula Nasal Cannula Nasal Cannula Nasal Cannula O2 Flow Rate 3.0 3.0 3.0 3.0 12/18/16 12/18/16 12/18/16 08:50 09:00 10:00 Pulse 90 84 Resp 30 29 B/P 161/80 159/79 Pulse Ox 93 98 93 O2 Delivery Nasal Cannula Nasal Cannula Nasal Cannula O2 Flow Rate 2.0 3.0 3.0 Intake and Output 12/17/16 12/17/16 12/18/16 15:00 23:00 07:00 Intake Total 630 ml 1248 ml 590 ml Output Total 525 ml 565 ml 545 ml Balance 105 ml 683 ml 45 ml CASTYOANANIAL K III DO Dec 18, 2016 11:07
--- NOTE | 2016-12-18 11:51 | PDOC ---
PULMONARY PROGRESS NOTES Subjective extubated 12/17 stable on nasal canula Vitals Vital Signs Date Time Temp Pulse Resp B/P Pulse Ox O2 Delivery O2 Flow Rate FiO2 12/18/16 10:00 84 29 159/79 93 Nasal Cannula 3.0 12/18/16 08:00 98.2 98.2 Comments ros as mentioned as above discussed w rn, off sedation agitated. ROS: No Nausea, No Chest Pain, No Abdominal Pain General: Alert, No acute distress HEENT: Other (nc at perrl, orally intubated) Lungs: Crackles, Other (No appreciated wheezing. No accessory muscle use) Cardiovascular: S1, S2 Abdomen: Soft, Non-tender, Other (no mass) Neuro Exam: Alert Extremities: No Edema Skin: Warm, Dry, No Rashes Labs Laboratory Tests Test 12/16/16 12:00 12/16/16 12:19 12/16/16 17:50 12/16/16 18:28 Potassium Level 4.5mmol/L (3.5-5.1) 4.5mmol/L (3.5-5.1) Glucose (Fingerstick) 113mg/dL (70-99) 115mg/dL (70-99) Test 12/16/16 19:30 12/17/16 05:00 12/17/16 08:00 12/17/16 08:25 O2 Saturation 99% (92-99) 91% (92-99) Arterial Blood pH 7.42 (7.35-7.45) 7.43 (7.35-7.45) Arterial Blood pCO2 at Patient Temp 46mmHg (35-46) 48mmHg (35-46) Arterial Blood pO2 at Patient Temp 162mmHg (75-108) 57mmHg (75-108) Arterial Blood HCO3 29mmol/L (21-28) 31mmol/L (21-28) Arterial Blood Base Excess 5mmol/L (-3-3) 5mmol/L (-3-3) FiO2 100 40 White Blood Count 17.2x10^3/uL (4.0-11.0) Red Blood Count 2.78x10^6/uL (4.30-5.70) Hemoglobin 8.2g/dL (13.0-17.5) Hematocrit 25.5% (39.0-53.0) Mean Corpuscular Volume 92fL (79-100) Mean Corpuscular Hemoglobin 30pg (25-35) Mean Corpuscular Hemoglobin Concent 32g/dL (31-37) Red Cell Distribution Width 14.1% (11.5-14.5) Platelet Count 334x10^3/uL (140-400) Neutrophils (%) (Auto) 72% (31-73) Lymphocytes (%) (Auto) 11% (24-48) Monocytes (%) (Auto) 16% (0-9) Eosinophils (%) (Auto) 1% (0-3) Basophils (%) (Auto) 1% (0-3) Neutrophils # (Auto) 12.3x10^3uL (1.8-7.7) Lymphocytes # (Auto) 1.8x10^3/uL (1.0-4.8) Monocytes # (Auto) 2.7x10^3/uL (0.0-1.1) Eosinophils # (Auto) 0.2x10^3/uL (0.0-0.7) Basophils # (Auto) 0.1x10^3/uL (0.0-0.2) Sodium Level 141mmol/L (136-145) Potassium Level 4.0mmol/L (3.5-5.1) Chloride Level 103mmol/L (98-107) Carbon Dioxide Level 31mmol/L (21-32) Anion Gap 7 (6-14) Blood Urea Nitrogen 14mg/dL (8-26) Creatinine 1.7mg/dL (0.7-1.3) Estimated GFR (Cockcroft-Gault) 52.1 Glucose Level 116mg/dL (70-99) Calcium Level 8.2mg/dL (8.5-10.1) Phosphorus Level 2.3mg/dL (2.6-4.7) Creatine Kinase 165U/L (39-308) [id number]-Type Natriuretic Peptide 76972se/mL (0-124) Albumin 2.9g/dL (3.4-5.0) Glucose (Fingerstick) 119mg/dL (70-99) Test 12/17/16 10:00 12/17/16 11:49 12/17/16 17:13 12/17/16 19:34 O2 Saturation 91% (92-99) 87% (92-99) Arterial Blood pH 7.48 (7.35-7.45) 7.50 (7.35-7.45) Arterial Blood pCO2 at Patient Temp 40mmHg (35-46) 40mmHg (35-46) Arterial Blood pO2 at Patient Temp 57mmHg (75-108) 50mmHg (75-108) Arterial Blood HCO3 29mmol/L (21-28) 30mmol/L (21-28) Arterial Blood Base Excess 5mmol/L (-3-3) 6mmol/L (-3-3) FiO2 40 40 Glucose (Fingerstick) 109mg/dL (70-99) 96mg/dL (70-99) Test 12/18/16 06:00 White Blood Count 19.4x10^3/uL (4.0-11.0) Red Blood Count 3.03x10^6/uL (4.30-5.70) Hemoglobin 8.9g/dL (13.0-17.5) Hematocrit 27.4% (39.0-53.0) Mean Corpuscular Volume 91fL (79-100) Mean Corpuscular Hemoglobin 29pg (25-35) Mean Corpuscular Hemoglobin Concent 32g/dL (31-37) Red Cell Distribution Width 13.9% (11.5-14.5) Platelet Count 405x10^3/uL (140-400) Neutrophils (%) (Auto) 77% (31-73) Lymphocytes (%) (Auto) 7% (24-48) Monocytes (%) (Auto) 15% (0-9) Eosinophils (%) (Auto) 0% (0-3) Basophils (%) (Auto) 1% (0-3) Neutrophils # (Auto) 14.9x10^3uL (1.8-7.7) Lymphocytes # (Auto) 1.4x10^3/uL (1.0-4.8) Monocytes # (Auto) 2.9x10^3/uL (0.0-1.1) Eosinophils # (Auto) 0.0x10^3/uL (0.0-0.7) Basophils # (Auto) 0.1x10^3/uL (0.0-0.2) Sodium Level 144mmol/L (136-145) Potassium Level 4.0mmol/L (3.5-5.1) Chloride Level 105mmol/L (98-107) Carbon Dioxide Level 24mmol/L (21-32) Anion Gap 15 (6-14) Blood Urea Nitrogen 13mg/dL (8-26) Creatinine 1.8mg/dL (0.7-1.3) Estimated GFR (Cockcroft-Gault) 48.8 Glucose Level 97mg/dL (70-99) Calcium Level 8.6mg/dL (8.5-10.1) Laboratory Tests Test 12/17/16 11:49 12/17/16 17:13 12/17/16 19:34 12/18/16 06:00 Glucose (Fingerstick) 109mg/dL (70-99) 96mg/dL (70-99) O2 Saturation 87% (92-99) Arterial Blood pH 7.50 (7.35-7.45) Arterial Blood pCO2 at Patient Temp 40mmHg (35-46) Arterial Blood pO2 at Patient Temp 50mmHg (75-108) Arterial Blood HCO3 30mmol/L (21-28) Arterial Blood Base Excess 6mmol/L (-3-3) FiO2 40 White Blood Count 19.4x10^3/uL (4.0-11.0) Red Blood Count 3.03x10^6/uL (4.30-5.70) Hemoglobin 8.9g/dL (13.0-17.5) Hematocrit 27.4% (39.0-53.0) Mean Corpuscular Volume 91fL (79-100) Mean Corpuscular Hemoglobin 29pg (25-35) Mean Corpuscular Hemoglobin Concent 32g/dL (31-37) Red Cell Distribution Width 13.9% (11.5-14.5) Platelet Count 405x10^3/uL (140-400) Neutrophils (%) (Auto) 77% (31-73) Lymphocytes (%) (Auto) 7% (24-48) Monocytes (%) (Auto) 15% (0-9) Eosinophils (%) (Auto) 0% (0-3) Basophils (%) (Auto) 1% (0-3) Neutrophils # (Auto) 14.9x10^3uL (1.8-7.7) Lymphocytes # (Auto) 1.4x10^3/uL (1.0-4.8) Monocytes # (Auto) 2.9x10^3/uL (0.0-1.1) Eosinophils # (Auto) 0.0x10^3/uL (0.0-0.7) Basophils # (Auto) 0.1x10^3/uL (0.0-0.2) Sodium Level 144mmol/L (136-145) Potassium Level 4.0mmol/L (3.5-5.1) Chloride Level 105mmol/L (98-107) Carbon Dioxide Level 24mmol/L (21-32) Anion Gap 15 (6-14) Blood Urea Nitrogen 13mg/dL (8-26) Creatinine 1.8mg/dL (0.7-1.3) Estimated GFR (Cockcroft-Gault) 48.8 Glucose Level 97mg/dL (70-99) Calcium Level 8.6mg/dL (8.5-10.1) Medications Active Scripts Medications Dose Route/Sig Days Date Category Percocet 5-325 Mg Tablet (Oxycodone/Acetaminophen) 1 Each Tablet 1-2 Tab PO Q4HRS 05/25/16 Reported Ultram (Tramadol Hcl) 50 Mg Tablet 50 Mg PO Q6H PRN 05/22/16 Rx Robaxin (Methocarbamol) 500 Mg Tablet 500 Mg PO QID 05/22/16 Rx Comments cxr 12/18 mild improvement left lung infiltrates Impression . 1. Acute hypoxemic respiratory failure, multifactorial in etiology.(septic shock, CHF, Metabolic acidosis, Renal failure,Possible pneumonia) 2. Extubated 12/17 3. CMP (EF 30%)/ cath findings c/w CHF 4. Septic shock POA. resolved 5. Acute kidney injury - currently on HD 6. Smoker. 7. History of drug abuse. 8. Status post cardiopulmonary arrest. 9. Hypotension.off pressors 10.Metabolic acidosis - resolved 11. s/ p cath the Right Atrial Pressure is 20 mmHg. The Right Ventricular Pressure is 50/30 mmHg. The Pulmonary Artery Pressure is 50/29 mmHg. The Pulmonary Catheter Wedge Pressure is 25 mmHg. LVEDP 30. This is c/w ongoing CHF Plan . 1. Continue nasal canula 2. PT consult 3. Bronchodilator, 4. s/p Bronch , severe tracheitis, cultures neg 5. ID recommendations 6. speech eval 7. Pepcid and heparin for stress ulcer and DVT prophylaxis. 8. Urine drug screen, pos.for cocaine 10. Follow Cardiology and nephrology recommendations. 11. HD/ UF to continue per nephrology SUZIE MCCRAY MD Dec 18, 2016 11:51
--- NOTE | 2016-12-18 12:07 | PDOC ---
AYAKA BUTLER CUSTOMER OPERATIONS SPECIALIST 12/18/16 1206: CARDIO Progress Notes Date and Time Date of Service 12/18/16 Time of Evaluation 1230 Subjective Subjective: No Chest Pain, No shortness of breath, Other (extubated; on NC. no complaints ) Vitals Vitals Vital Signs Date Time Temp Pulse Resp B/P Pulse Ox O2 Delivery O2 Flow Rate FiO2 12/18/16 10:00 84 29 159/79 93 Nasal Cannula 3.0 12/18/16 08:00 98.2 98.2 Weight Weight [ ] Input and Output Intake and Output Intake and Output 12/18/16 07:00 Intake Total 2468 ml Output Total 1635 ml Balance 833 ml Intake Oral 240 ml IV Total 1268 ml Tube Feeding 950 ml Blood Product IV Normal Saline Flush 10 ml Output Urine Total 1635 ml # Bowel Movements 1 Laboratory Labs Laboratory Tests Test 12/17/16 17:13 12/17/16 19:34 12/18/16 06:00 Glucose (Fingerstick) 96mg/dL (70-99) O2 Saturation 87% (92-99) Arterial Blood pH 7.50 (7.35-7.45) Arterial Blood pCO2 at Patient Temp 40mmHg (35-46) Arterial Blood pO2 at Patient Temp 50mmHg (75-108) Arterial Blood HCO3 30mmol/L (21-28) Arterial Blood Base Excess 6mmol/L (-3-3) FiO2 40 White Blood Count 19.4x10^3/uL (4.0-11.0) Red Blood Count 3.03x10^6/uL (4.30-5.70) Hemoglobin 8.9g/dL (13.0-17.5) Hematocrit 27.4% (39.0-53.0) Mean Corpuscular Volume 91fL (79-100) Mean Corpuscular Hemoglobin 29pg (25-35) Mean Corpuscular Hemoglobin Concent 32g/dL (31-37) Red Cell Distribution Width 13.9% (11.5-14.5) Platelet Count 405x10^3/uL (140-400) Neutrophils (%) (Auto) 77% (31-73) Lymphocytes (%) (Auto) 7% (24-48) Monocytes (%) (Auto) 15% (0-9) Eosinophils (%) (Auto) 0% (0-3) Basophils (%) (Auto) 1% (0-3) Neutrophils # (Auto) 14.9x10^3uL (1.8-7.7) Lymphocytes # (Auto) 1.4x10^3/uL (1.0-4.8) Monocytes # (Auto) 2.9x10^3/uL (0.0-1.1) Eosinophils # (Auto) 0.0x10^3/uL (0.0-0.7) Basophils # (Auto) 0.1x10^3/uL (0.0-0.2) Sodium Level 144mmol/L (136-145) Potassium Level 4.0mmol/L (3.5-5.1) Chloride Level 105mmol/L (98-107) Carbon Dioxide Level 24mmol/L (21-32) Anion Gap 15 (6-14) Blood Urea Nitrogen 13mg/dL (8-26) Creatinine 1.8mg/dL (0.7-1.3) Estimated GFR (Cockcroft-Gault) 48.8 Glucose Level 97mg/dL (70-99) Calcium Level 8.6mg/dL (8.5-10.1) Microbiology Micro Microbiology 12/07/16 Blood Culture - Final, Complete NO GROWTH AFTER 5 DAYS 12/07/16 Stool Culture - Final, Complete 12/07/16 Stool Culture Result 1 (NEFTALI) - Final, Complete 12/07/16 Campylobacter Antigen Assay - Final, Complete 12/07/16 Campylobactor Result 1 - Final, Complete 12/07/16 Shiga Toxin Test - Final, Complete 12/12/16 AFB Specimen Processing Tissue - Final, Resulted 12/12/16 Acid Fast Bacilli Culture, Resulted Pending 12/12/16 Gram Stain - Final, Resulted 12/12/16 Fungal Culture, Resulted Pending 12/12/16 Fungal Culture Result 1, Resulted Pending 12/12/16 Urine Culture - Final, Complete 12/12/16 Urine Culture Result 1 (NEFTALI) - Final, Complete Review of Systems Constitutional: yes: alert, oriented, weakness Ears/Nose/Throat: Yes: no symptom reported Eyes: Yes: no symptom reported Pulmonary: Yes no symptom reported Cardiovascular: Yes no symptom reported Gastrointestional: Yes: no symptom reported Genitourinary: Yes: no symptom reported Musculoskeletal: Yes: muscle atrophy, muscle stiffness Physical Exam HEENT: Neck Supple W Full Motion Chest: Symmetric LUNGS: Other (bibasilar crackles) Heart: S1S2, RRR, other (tele: SR) Abdomen: Soft N/T Extremities: 2+ Dorsalis Pedis, No Edema Neurology: alert, oriented, follow commands, other Assessment Assessment 1. Acute respiratory failure; extubated 12/17 2. Acute systolic heart failure 3. Non-ischemic cardiomyopathy; LVEF 30-35% 4. HTN 5. ASHLEY; now on HD 6. anemia 7. polysubstance abuse Recommendations Continue fluid offloading in HD per nephrology. Presently NPO; add IV hydralazine PRN Avoid KENDALL given ASHLEY until stabilized. ? candidate for BB with cocaine use. Optimization therapy as able. Repeat echo in 3 months to re-evaluate LV function/assess need for AICD implantation in prevention of SCD Discussed cessation from tobacco and substance use FARIDA WRIGHT MD 12/18/16 2755: CARDIO Progress Notes Plan Plan Patient seen and examined. Agree with above nurse practitioner note. No acute events overnight. Denies any chest pain. Continues to have some mild dyspnea. On examination no significant lower extremity edema is present. Chest x-rays are stable. Medications reviewed. Once he is able to take oral intake then we will start him on carvedilol, hydralazine and long-acting nitrate therapy. Consider addition of KENDALL inhibitor when cleared by nephrology. Continue supportive care and fluid offloading with HD. AYAKA BUTLER APRN Dec 18, 2016 12:06 FARIDA WRIGHT MD Dec 18, 2016 17:35
[2016-12-18] MEDS: BUDESONIDE 0.5 MG/2 ML NEBU NEB SCH ×2 (12:32→18:56)
[2016-12-18] MEDS: ENOXAPARIN 40 MG/0.4 ML DISP.SYRIN. SQ SCH (16:19)
[2016-12-18] MEDS: FAMOTIDINE 20 MG/2 ML VIAL IVP SCH (21:50)
[2016-12-19] VITALS (14 sets, daily range): BP systolic 100–177; BP diastolic 73–101
[2016-12-19 06:21] LABS: FIO2 ABG 50; HCO3 ABG 18 mmol/L (21-28); PCO2 ABG 31 mmHg (35-46); PH ABG 7.38 (7.35-7.45); PO2 ABG 71 mmHg (75-108); SAT O2 ABG 91 % (92-99)
[2016-12-19 06:51] LABS: BASO # 0.2 x10^3/uL (0.0-0.2); BASO % 1 % (0-3); EOS % 0 % (0-3); HEMATOCRIT 30.1 % (39.0-53.0); HEMOGLOBIN 9.6 g/dL (13.0-17.5); LYMPH % 9 % (24-48); MEAN CORPUSCULAR HEMOGLOBIN 29 pg (25-35); MEAN CORPUSCULAR HGB CONC 32 g/dL (31-37); MEAN CORPUSCULAR VOLUME 91 fL (79-100); MONO % 16 % (0-9); NEUT % 74 % (31-73); PLATELET COUNT 491 x10^3/uL (140-400); RED BLOOD COUNT 3.29 x10^6/uL (4.30-5.70); RED CELL DISTRIBUTION WIDTH 14.2 % (11.5-14.5); WHITE BLOOD COUNT 21.1 x10^3/uL (4.0-11.0)
[2016-12-19 07:04] LABS: CALCIUM 9.2 mg/dL (8.5-10.1); CREATININE 2.5 mg/dL (0.7-1.3); GFR 33.4; POTASSIUM 3.2 mmol/L (3.5-5.1)
--- NOTE | 2016-12-19 07:07 | PDOC ---
Infectious Disease Note Subjective Subjective Stated had a seizure last pm. No previous or family history. No tongue biting. Started with mumbling and then seizing Doing ok now No fever/SOA Denies pain or upset stomach Family present. Very supportive. ROS ROS GEN: Denies fevers, chills, sweats HEENT: Denies blurred vision, sore throat CV: Denies chest pain RESP: Denies shortness of air, cough GI: Denies n/v/d NEURO: Denies confusion, dizziness MSK: Denies weakness, joint pain/swelling Vital Sign Vital Signs Vital Signs Date Time Temp Pulse Resp B/P Pulse Ox O2 Delivery O2 Flow Rate FiO2 12/19/16 04:00 98.0 90 27 156/84 94 Nasal Cannula 3.0 98.0 Physical Exam PHYSICAL EXAM GENERAL: NAD, coop HEENT: PERRL, Oc/OP - clear LUNGS: Clear. On facemask HEART: S1S2, no gallop, no murmur. ABD: Mildly distended, BS present, soft, NT : No foely EXT: No C/ C? trace edema BOWLING ALLEY REFINISHER: Alert and oriented SKIN: No rash RUE PICC. (12/09). clean. [facility] HD cath clean Labs Lab Laboratory Tests Test 12/19/16 05:53 12/19/16 06:00 12/19/16 06:06 Glucose (Fingerstick) 73mg/dL (70-99) White Blood Count 21.1x10^3/uL (4.0-11.0) Red Blood Count 3.29x10^6/uL (4.30-5.70) Hemoglobin 9.6g/dL (13.0-17.5) Hematocrit 30.1% (39.0-53.0) Mean Corpuscular Volume 91fL (79-100) Mean Corpuscular Hemoglobin 29pg (25-35) Mean Corpuscular Hemoglobin Concent 32g/dL (31-37) Red Cell Distribution Width 14.2% (11.5-14.5) Platelet Count 491x10^3/uL (140-400) Neutrophils (%) (Auto) 74% (31-73) Lymphocytes (%) (Auto) 9% (24-48) Monocytes (%) (Auto) 16% (0-9) Eosinophils (%) (Auto) 0% (0-3) Basophils (%) (Auto) 1% (0-3) Neutrophils # (Auto) 15.6x10^3uL (1.8-7.7) Lymphocytes # (Auto) 2.0x10^3/uL (1.0-4.8) Monocytes # (Auto) 3.4x10^3/uL (0.0-1.1) Eosinophils # (Auto) 0.0x10^3/uL (0.0-0.7) Basophils # (Auto) 0.2x10^3/uL (0.0-0.2) O2 Saturation 91% (92-99) Arterial Blood pH 7.38 (7.35-7.45) Arterial Blood pCO2 at Patient Temp 31mmHg (35-46) Arterial Blood pO2 at Patient Temp 71mmHg (75-108) Arterial Blood HCO3 18mmol/L (21-28) Arterial Blood Base Excess -6mmol/L (-3-3) FiO2 50 Objective Assessment ? New seizure Leukocytosis - trending ? reactive ? seizure and concentration Sepsis with lactic acidosis. POA - resolved Anemia Fever - resolved Pneumonia - S/p Bronch 12/12 - GPC on gram stain. Cult neg so far - fungus -Influenza screen neg -Strep antigen & legionella Ag neg Acute encephalopathy Acute respiratory failure s/p intubation - resolved s/p PEA cardiopulmonary arrest - S/p Cath 12/12 -TTE EF 30-35%. -No veg noted Hypotension on vasopressor support x 2. Now off ASHLEY - Renal following - worse Polysubstance abuse Diarrhea. c. diff neg. stool cx neg Plan Plan of Care Discontinued Zosyn/Zyvox (12/18). Monitor labs/temp Supportive care D/w family LILIANA SEVERINO MD Dec 19, 2016 07:07
--- NOTE | 2016-12-19 07:42 | RAD ---
Portable chest, 12/19/2016: History: Congestive heart failure A right PICC extends into the superior vena cava. A right jugular dialysis catheter extends to the level of the atriocaval junction. The heart is within normal limits in size. There are ongoing bilateral pulmonary infiltrates. These have improved slightly over the last 3 days. There is no evidence of pneumothorax. There is slight blunting of the lateral costophrenic angles. No large volume of pleural fluid is seen. No new abnormality is detected. IMPRESSION: Ongoing bilateral pulmonary infiltrates, slightly improved over the last several days.
[2016-12-19 07:54] LABS: BARBITURATES NEG (NEG); BENZODIAZEPINES POS (NEG); CANNABINOIDS NEG (NEG); COCAINE NEG (NEG); METHADONE NEG (NEG); OPIATES NEG (NEG); PHENCYCLIDINE NEG (NEG)
[2016-12-19 07:56] LABS: ETHANOL, URINE NEG (NEG)
[2016-12-19] MEDS ORDERED: FUROSEMIDE 40 MG/4 ML VIAL IVP ONE (08:00)
[2016-12-19] MEDS: ASPIRIN 81 MG TAB.CHEW PO SCH (08:00)
[2016-12-19] MEDS: CHLORHEXIDINE 0.12% 15 ML MOUTHWASH. MM SCH (08:07)
[2016-12-19] MEDS: HEPARIN PF for SUB-Q USE 5,000 UNIT/0.5 ML VIAL. SQ SCH ×2 (08:15→22:47)
[2016-12-19] MEDS ORDERED: POTASSIUM CHLORIDE 20MEQ 50 ML IV SCH (08:30)
[2016-12-19] MEDS: BUDESONIDE 0.5 MG/2 ML NEBU NEB SCH ×2 (08:49→19:27)
[2016-12-19] MEDS: IPRATROPIUM BROMIDE 0.5 MG/2.5 ML NEBU. NEB SCH ×4 (08:49→19:27)
--- NOTE | 2016-12-19 10:10 | PDOC ---
Renal-Progress Notes Subjective Notes Notes MILD CONFUSION THIS AM AND SEIZURE History of Present Illness Hx of present illness NO CHANGE Vitals Vitals Vital Signs Date Time Temp Pulse Resp B/P Pulse Ox O2 Delivery O2 Flow Rate FiO2 12/19/16 08:20 94 Venturi Mask 15.0 12/19/16 08:00 97.5 81 25 158/84 97.5 Weight Weight [ ] I.O. Intake and Output Intake and Output 12/19/16 07:00 Intake Total 0 ml Output Total 1045 ml Balance -1045 ml Intake Oral 0 ml Output Urine Total 1045 ml # Voids 1 # Bowel Movements 2 Labs Labs Laboratory Tests Test 12/19/16 05:53 12/19/16 06:00 12/19/16 06:06 12/19/16 07:24 Glucose (Fingerstick) 73mg/dL (70-99) White Blood Count 21.1x10^3/uL (4.0-11.0) Red Blood Count 3.29x10^6/uL (4.30-5.70) Hemoglobin 9.6g/dL (13.0-17.5) Hematocrit 30.1% (39.0-53.0) Mean Corpuscular Volume 91fL (79-100) Mean Corpuscular Hemoglobin 29pg (25-35) Mean Corpuscular Hemoglobin Concent 32g/dL (31-37) Red Cell Distribution Width 14.2% (11.5-14.5) Platelet Count 491x10^3/uL (140-400) Neutrophils (%) (Auto) 74% (31-73) Lymphocytes (%) (Auto) 9% (24-48) Monocytes (%) (Auto) 16% (0-9) Eosinophils (%) (Auto) 0% (0-3) Basophils (%) (Auto) 1% (0-3) Neutrophils # (Auto) 15.6x10^3uL (1.8-7.7) Lymphocytes # (Auto) 2.0x10^3/uL (1.0-4.8) Monocytes # (Auto) 3.4x10^3/uL (0.0-1.1) Eosinophils # (Auto) 0.0x10^3/uL (0.0-0.7) Basophils # (Auto) 0.2x10^3/uL (0.0-0.2) Sodium Level 149mmol/L (136-145) Potassium Level 3.2mmol/L (3.5-5.1) Chloride Level 107mmol/L (98-107) Carbon Dioxide Level 21mmol/L (21-32) Anion Gap 21 (6-14) Blood Urea Nitrogen 21mg/dL (8-26) Creatinine 2.5mg/dL (0.7-1.3) Estimated GFR (Cockcroft-Gault) 33.4 Glucose Level 122mg/dL (70-99) Calcium Level 9.2mg/dL (8.5-10.1) Thyroid Stimulating Hormone (TSH) 4.685uIU/mL (0.358-3.74) O2 Saturation 91% (92-99) Arterial Blood pH 7.38 (7.35-7.45) Arterial Blood pCO2 at Patient Temp 31mmHg (35-46) Arterial Blood pO2 at Patient Temp 71mmHg (75-108) Arterial Blood HCO3 18mmol/L (21-28) Arterial Blood Base Excess -6mmol/L (-3-3) FiO2 50 Urine Opiates Screen Neg (NEG) Urine Methadone Screen Neg (NEG) Urine Barbiturates Neg (NEG) Urine Phencyclidine Screen Neg (NEG) Urine Amphetamine/Methamphetamine Neg (NEG) Urine Benzodiazepines Screen Pos (NEG) Urine Cocaine Screen Neg (NEG) Urine Cannabinoids Screen Neg (NEG) Urine Ethyl Alcohol Neg (NEG) Micro Micro Microbiology 12/07/16 Blood Culture - Final, Complete NO GROWTH AFTER 5 DAYS 12/07/16 Stool Culture - Final, Complete 12/07/16 Stool Culture Result 1 (NEFTALI) - Final, Complete 12/07/16 Campylobacter Antigen Assay - Final, Complete 12/07/16 Campylobactor Result 1 - Final, Complete 12/07/16 Shiga Toxin Test - Final, Complete 12/12/16 AFB Specimen Processing Tissue - Final, Resulted 12/12/16 Acid Fast Bacilli Culture, Resulted Pending 12/12/16 Gram Stain - Final, Resulted 12/12/16 Fungal Culture, Resulted Pending 12/12/16 Fungal Culture Result 1, Resulted Pending 12/12/16 Urine Culture - Final, Complete 12/12/16 Urine Culture Result 1 (NEFTALI) - Final, Complete Review of Systems Constitutional: yes: alert, oriented, weakness Ears/Nose/Throat: Yes: no symptom reported Eyes: Yes: no symptom reported Pulmonary: Yes no symptom reported Cardiovascular: Yes no symptom reported Gastrointestional: Yes: no symptom reported Genitourinary: Yes: no symptom reported Musculoskeletal: Yes: muscle atrophy, muscle stiffness Physical Exam General Appearance: no apparent distress Skin: warm Respiratory: decreased breath sounds Heart: S1S2, RRR Abdomen: soft, bowel sounds present Genitourinary: bladder flat Neurology: alert, oriented, follow commands, other Assessment Assessment IMP ASHLEY-OLIGURIC AND CR UP ANEMIA LEUCOCYTOSIS PNEUMONIA SEIZURE PLAN CONT ANTIBIOTICS HD TODAY UF TO DW WILL FOLLOW BLUE RICHARDSON MD Dec 19, 2016 10:10
[2016-12-19] MEDS ORDERED: LORAZEPAM 2 MG/ML VIAL ONE (10:51)
[2016-12-19] MEDS ORDERED: LORAZEPAM 2 MG/ML VIAL IV ONE (11:15)
--- NOTE | 2016-12-19 11:22 | PDOC ---
PROGRESS NOTES Chief Complaint Chief Complaint Chief Complaint: - Weakness, dehydration - Cardiac arrest PEA (12/08); TTE EF of 30-35% - Acute respiratory failure, likely multifactorial; On mechanical Ventilation ( 12/08)- possible aspiration pneumonia. Possible ARDS vs pulmonary edema vs PNA - ASHLEY - Septic shock, multiorgan failure, Off pressor support - Cardiomyopathy - Metabolic acidosis - Polysubstance abuse - Elevated troponin - Hypocalcemia. History of Present Illness History of Present Illness Upon entering ICU, patient's exited room calling for help d/t patient having another seizure. Seizure activity witnessed, duration of ~1min. Patient' s and nursing report several seizures this morning, and they notice a pattern of stuttering/expression difficulties or onset of anxiety immediately prior to seizure activity onset. Ativan administered, helped patient calm down and relax, suction provided by nursing. MRI of the head is ordered and will be done shortly. Patient was diaphoretic and non-responsive following seizure. Patient's is also very anxious and tearful, stating she is very concerned about the onset of the seizures. Vitals Vitals Vital Signs Date Time Temp Pulse Resp B/P Pulse Ox O2 Delivery O2 Flow Rate FiO2 12/19/16 08:20 94 Venturi Mask 15.0 12/19/16 08:00 97.5 81 25 158/84 97.5 Physical Exam Physical Exam Pupils pinpoint, reactive to light General: moderate distress, Other (Witnessed seizure of ~1 min duration) Heart: Other (Tachycardic at 130) Lungs: Crackles, Other (No accessory muscle use) Abdomen: Normal bowel sounds, Soft Extremities: No clubbing, No cyanosis Skin: No rashes, No significant lesion, Other (Diaphoretic) Labs LABS Laboratory Tests Test 12/19/16 05:53 12/19/16 06:00 12/19/16 06:06 12/19/16 07:24 Glucose (Fingerstick) 73mg/dL (70-99) White Blood Count 21.1x10^3/uL (4.0-11.0) Red Blood Count 3.29x10^6/uL (4.30-5.70) Hemoglobin 9.6g/dL (13.0-17.5) Hematocrit 30.1% (39.0-53.0) Mean Corpuscular Volume 91fL (79-100) Mean Corpuscular Hemoglobin 29pg (25-35) Mean Corpuscular Hemoglobin Concent 32g/dL (31-37) Red Cell Distribution Width 14.2% (11.5-14.5) Platelet Count 491x10^3/uL (140-400) Neutrophils (%) (Auto) 74% (31-73) Lymphocytes (%) (Auto) 9% (24-48) Monocytes (%) (Auto) 16% (0-9) Eosinophils (%) (Auto) 0% (0-3) Basophils (%) (Auto) 1% (0-3) Neutrophils # (Auto) 15.6x10^3uL (1.8-7.7) Lymphocytes # (Auto) 2.0x10^3/uL (1.0-4.8) Monocytes # (Auto) 3.4x10^3/uL (0.0-1.1) Eosinophils # (Auto) 0.0x10^3/uL (0.0-0.7) Basophils # (Auto) 0.2x10^3/uL (0.0-0.2) Sodium Level 149mmol/L (136-145) Potassium Level 3.2mmol/L (3.5-5.1) Chloride Level 107mmol/L (98-107) Carbon Dioxide Level 21mmol/L (21-32) Anion Gap 21 (6-14) Blood Urea Nitrogen 21mg/dL (8-26) Creatinine 2.5mg/dL (0.7-1.3) Estimated GFR (Cockcroft-Gault) 33.4 Glucose Level 122mg/dL (70-99) Calcium Level 9.2mg/dL (8.5-10.1) Thyroid Stimulating Hormone (TSH) 4.685uIU/mL (0.358-3.74) O2 Saturation 91% (92-99) Arterial Blood pH 7.38 (7.35-7.45) Arterial Blood pCO2 at Patient Temp 31mmHg (35-46) Arterial Blood pO2 at Patient Temp 71mmHg (75-108) Arterial Blood HCO3 18mmol/L (21-28) Arterial Blood Base Excess -6mmol/L (-3-3) FiO2 50 Urine Opiates Screen Neg (NEG) Urine Methadone Screen Neg (NEG) Urine Barbiturates Neg (NEG) Urine Phencyclidine Screen Neg (NEG) Urine Amphetamine/Methamphetamine Neg (NEG) Urine Benzodiazepines Screen Pos (NEG) Urine Cocaine Screen Neg (NEG) Urine Cannabinoids Screen Neg (NEG) Urine Ethyl Alcohol Neg (NEG) Review of Systems Review of Systems Seizure activity. Not verbally responsive post-ictal Assessment and Plan Assessmemt and Plan Assessment: - Weakness, dehydration - Cardiac arrest PEA (12/08); TTE EF of 30-35%, s/p left heart cath 12/12/16 - Acute respiratory failure, likely multifactorial; On mechanical Ventilation ( 12/08)- possible aspiration pneumonia. Possible ARDS vs pulmonary edema vs PNA - ASHLEY/ATN, initiating hemodialysis - Anemia - Septic shock, multiorgan failure, Off pressor support - Cardiomyopathy - Metabolic acidosis - Polysubstance abuse - Elevated troponin - Hypocalcemia. Plan - Neuro consult pending. Likely initiate anti-epileptic medication. Appreciate further input - Ordered Ativan 2-4 IV q2 prn for seizures - Speech therapy recommends NPO d/t high aspiration risk. - Hgb 9.6 this morning. Patient on hemodialysis and tolerating treatment well. Will continue to monitor and correct as needed. - Antibiotic management per I.D. - Continue monitoring in ICU - Recheck labs in a.m. - LTAC eval in progress - Continue Lovenox 40mg daily for DVT ppx - Appreciate subspecialty input Total time 31 minutes Problems: Comment Review of Relevant I have reviewed the following items immanuel (where applicable) has been applied. Labs Laboratory Tests Test 12/17/16 11:49 12/17/16 17:13 12/17/16 19:34 12/18/16 06:00 Glucose (Fingerstick) 109mg/dL (70-99) 96mg/dL (70-99) O2 Saturation 87% (92-99) Arterial Blood pH 7.50 (7.35-7.45) Arterial Blood pCO2 at Patient Temp 40mmHg (35-46) Arterial Blood pO2 at Patient Temp 50mmHg (75-108) Arterial Blood HCO3 30mmol/L (21-28) Arterial Blood Base Excess 6mmol/L (-3-3) FiO2 40 White Blood Count 19.4x10^3/uL (4.0-11.0) Red Blood Count 3.03x10^6/uL (4.30-5.70) Hemoglobin 8.9g/dL (13.0-17.5) Hematocrit 27.4% (39.0-53.0) Mean Corpuscular Volume 91fL (79-100) Mean Corpuscular Hemoglobin 29pg (25-35) Mean Corpuscular Hemoglobin Concent 32g/dL (31-37) Red Cell Distribution Width 13.9% (11.5-14.5) Platelet Count 405x10^3/uL (140-400) Neutrophils (%) (Auto) 77% (31-73) Lymphocytes (%) (Auto) 7% (24-48) Monocytes (%) (Auto) 15% (0-9) Eosinophils (%) (Auto) 0% (0-3) Basophils (%) (Auto) 1% (0-3) Neutrophils # (Auto) 14.9x10^3uL (1.8-7.7) Lymphocytes # (Auto) 1.4x10^3/uL (1.0-4.8) Monocytes # (Auto) 2.9x10^3/uL (0.0-1.1) Eosinophils # (Auto) 0.0x10^3/uL (0.0-0.7) Basophils # (Auto) 0.1x10^3/uL (0.0-0.2) Sodium Level 144mmol/L (136-145) Potassium Level 4.0mmol/L (3.5-5.1) Chloride Level 105mmol/L (98-107) Carbon Dioxide Level 24mmol/L (21-32) Anion Gap 15 (6-14) Blood Urea Nitrogen 13mg/dL (8-26) Creatinine 1.8mg/dL (0.7-1.3) Estimated GFR (Cockcroft-Gault) 48.8 Glucose Level 97mg/dL (70-99) Calcium Level 8.6mg/dL (8.5-10.1) Test 12/19/16 05:53 12/19/16 06:00 12/19/16 06:06 12/19/16 07:24 Glucose (Fingerstick) 73mg/dL (70-99) White Blood Count 21.1x10^3/uL (4.0-11.0) Red Blood Count 3.29x10^6/uL (4.30-5.70) Hemoglobin 9.6g/dL (13.0-17.5) Hematocrit 30.1% (39.0-53.0) Mean Corpuscular Volume 91fL (79-100) Mean Corpuscular Hemoglobin 29pg (25-35) Mean Corpuscular Hemoglobin Concent 32g/dL (31-37) Red Cell Distribution Width 14.2% (11.5-14.5) Platelet Count 491x10^3/uL (140-400) Neutrophils (%) (Auto) 74% (31-73) Lymphocytes (%) (Auto) 9% (24-48) Monocytes (%) (Auto) 16% (0-9) Eosinophils (%) (Auto) 0% (0-3) Basophils (%) (Auto) 1% (0-3) Neutrophils # (Auto) 15.6x10^3uL (1.8-7.7) Lymphocytes # (Auto) 2.0x10^3/uL (1.0-4.8) Monocytes # (Auto) 3.4x10^3/uL (0.0-1.1) Eosinophils # (Auto) 0.0x10^3/uL (0.0-0.7) Basophils # (Auto) 0.2x10^3/uL (0.0-0.2) Sodium Level 149mmol/L (136-145) Potassium Level 3.2mmol/L (3.5-5.1) Chloride Level 107mmol/L (98-107) Carbon Dioxide Level 21mmol/L (21-32) Anion Gap 21 (6-14) Blood Urea Nitrogen 21mg/dL (8-26) Creatinine 2.5mg/dL (0.7-1.3) Estimated GFR (Cockcroft-Gault) 33.4 Glucose Level 122mg/dL (70-99) Calcium Level 9.2mg/dL (8.5-10.1) Thyroid Stimulating Hormone (TSH) 4.685uIU/mL (0.358-3.74) O2 Saturation 91% (92-99) Arterial Blood pH 7.38 (7.35-7.45) Arterial Blood pCO2 at Patient Temp 31mmHg (35-46) Arterial Blood pO2 at Patient Temp 71mmHg (75-108) Arterial Blood HCO3 18mmol/L (21-28) Arterial Blood Base Excess -6mmol/L (-3-3) FiO2 50 Urine Opiates Screen Neg (NEG) Urine Methadone Screen Neg (NEG) Urine Barbiturates Neg (NEG) Urine Phencyclidine Screen Neg (NEG) Urine Amphetamine/Methamphetamine Neg (NEG) Urine Benzodiazepines Screen Pos (NEG) Urine Cocaine Screen Neg (NEG) Urine Cannabinoids Screen Neg (NEG) Urine Ethyl Alcohol Neg (NEG) Laboratory Tests Test 12/19/16 05:53 12/19/16 06:00 12/19/16 06:06 12/19/16 07:24 Glucose (Fingerstick) 73mg/dL (70-99) White Blood Count 21.1x10^3/uL (4.0-11.0) Red Blood Count 3.29x10^6/uL (4.30-5.70) Hemoglobin 9.6g/dL (13.0-17.5) Hematocrit 30.1% (39.0-53.0) Mean Corpuscular Volume 91fL (79-100) Mean Corpuscular Hemoglobin 29pg (25-35) Mean Corpuscular Hemoglobin Concent 32g/dL (31-37) Red Cell Distribution Width 14.2% (11.5-14.5) Platelet Count 491x10^3/uL (140-400) Neutrophils (%) (Auto) 74% (31-73) Lymphocytes (%) (Auto) 9% (24-48) Monocytes (%) (Auto) 16% (0-9) Eosinophils (%) (Auto) 0% (0-3) Basophils (%) (Auto) 1% (0-3) Neutrophils # (Auto) 15.6x10^3uL (1.8-7.7) Lymphocytes # (Auto) 2.0x10^3/uL (1.0-4.8) Monocytes # (Auto) 3.4x10^3/uL (0.0-1.1) Eosinophils # (Auto) 0.0x10^3/uL (0.0-0.7) Basophils # (Auto) 0.2x10^3/uL (0.0-0.2) Sodium Level 149mmol/L (136-145) Potassium Level 3.2mmol/L (3.5-5.1) Chloride Level 107mmol/L (98-107) Carbon Dioxide Level 21mmol/L (21-32) Anion Gap 21 (6-14) Blood Urea Nitrogen 21mg/dL (8-26) Creatinine 2.5mg/dL (0.7-1.3) Estimated GFR (Cockcroft-Gault) 33.4 Glucose Level 122mg/dL (70-99) Calcium Level 9.2mg/dL (8.5-10.1) Thyroid Stimulating Hormone (TSH) 4.685uIU/mL (0.358-3.74) O2 Saturation 91% (92-99) Arterial Blood pH 7.38 (7.35-7.45) Arterial Blood pCO2 at Patient Temp 31mmHg (35-46) Arterial Blood pO2 at Patient Temp 71mmHg (75-108) Arterial Blood HCO3 18mmol/L (21-28) Arterial Blood Base Excess -6mmol/L (-3-3) FiO2 50 Urine Opiates Screen Neg (NEG) Urine Methadone Screen Neg (NEG) Urine Barbiturates Neg (NEG) Urine Phencyclidine Screen Neg (NEG) Urine Amphetamine/Methamphetamine Neg (NEG) Urine Benzodiazepines Screen Pos (NEG) Urine Cocaine Screen Neg (NEG) Urine Cannabinoids Screen Neg (NEG) Urine Ethyl Alcohol Neg (NEG) Microbiology 12/07/16 Blood Culture - Final, Complete NO GROWTH AFTER 5 DAYS 12/07/16 Stool Culture - Final, Complete 12/07/16 Stool Culture Result 1 (NEFTALI) - Final, Complete 12/07/16 Campylobacter Antigen Assay - Final, Complete 12/07/16 Campylobactor Result 1 - Final, Complete 12/07/16 Shiga Toxin Test - Final, Complete 12/12/16 AFB Specimen Processing Tissue - Final, Resulted 12/12/16 Acid Fast Bacilli Culture, Resulted Pending 12/12/16 Gram Stain - Final, Resulted 12/12/16 Fungal Culture - Preliminary, Resulted 12/12/16 Fungal Culture Result 1 - Preliminary, Resulted 12/12/16 Urine Culture - Final, Complete 12/12/16 Urine Culture Result 1 (NEFTALI) - Final, Complete Medications Current Medications Ketorolac Tromethamine 30 mg 30 mg 1X ONCE IV Last administered on 12/07/16 14:34; Start 12/07/16 at 14:30; Stop 12/07/16 at 14:31; Status DC Sodium Chloride 1,000 ml @ 1,000 mls/hr 1X ONCE IV Last administered on 14:34; Start 12/07/16 at 14:30; Stop 12/07/16 at 15:29; Status DC Ceftriaxone Sodium 1 gm/ Sodium Chloride 50 ml @ 100 mls/hr Q24H IV ; Start at 15:30; Stop 12/08/16 at 15:30; Status DC Azithromycin 250 ml @ 250 mls/hr 1X ONCE IV Last administered on 12/07/16 15 :48; Start 12/07/16 at 15:15; Stop 12/07/16 at 16:14; Status DC Sodium Chloride 1,000 ml @ 1,000 mls/hr 1X ONCE IV Last administered on 16:09; Start 12/07/16 at 15:15; Stop 12/07/16 at 16:14; Status DC Ceftriaxone Sodium 50 ml @ 100 mls/hr 1X ONCE IV Last administered on 15:29; Start 12/07/16 at 15:15; Stop 12/07/16 at 15:44; Status DC Sodium Chloride (Iv Sodium Chloride 0.9% 1000ml Bag) 1,000 ml @ 150 mls/hr 1X ONCE IV Last administered on 12/07/16 18:10; Start 12/07/16 at 15:15; Stop 11/11 at 21:54; Status DC Famotidine (Pepcid) 20 mg 1X ONCE IVP Last administered on 12/07/16 15:48; Start 12/07/16 at 15:45; Stop 12/07/16 at 15:46; Status DC Ondansetron HCl 4 mg 4 mg 1X ONCE IV Last administered on 12/07/16 16:09; Start 12/07/16 at 16:15; Stop 12/07/16 at 16:16; Status DC Sodium Chloride (Iv Sodium Chloride 0.9% 1000ml Bag) 1,000 ml @ 150 mls/hr Q6H40M IV Last administered on 12/08/16 06:38; Start 12/07/16 at 16:30; Stop 12/08/16 at 14:21; Status DC Ondansetron HCl (Zofran) 4 mg PRN Q6HRS PRN IV NAUSEA/VOMITING Last administered on 12/19/16 02:59; Start 12/07/16 at 16:30 Acetaminophen (Tylenol) 500 mg PRN Q6HRS PRN PO MILD PAIN / TEMP Last administered on 12/09/16 15:04; Start 12/07/16 at 16:30 Morphine Sulfate 2 mg PRN Q2HR PRN IV PAIN Last administered on 12/08/16 05:28 ; Start 12/07/16 at 16:30 Zolpidem Tartrate (Ambien) 5 mg PRN QHS PRN PO INSOMNIA Last administered on 01:06; Start 12/07/16 at 16:30; Stop 12/08/16 at 10:03; Status DC Methocarbamol (Robaxin) 500 mg QID PO Last administered on 12/07/16 21:19; Start 12/07/16 at 17:00; Stop 12/08/16 at 10:03; Status DC Oxycodone/ Acetaminophen (Percocet 5/325) 1 tab PRN Q4HRS PRN PO SEVERE PAIN; Start 12/07/16 at 16:30 Tramadol HCl (Ultram) 50 mg PRN Q6HRS PRN PO MODERATE PAIN Last administered on 12/07/16 17:11; Start 12/07/16 at 16:30 Nicotine (Nicoderm Cq 21mg) 1 patch PRN DAILY PRN TD SMOKING CESSATION; Start 12/07/16 at 16:30 Info (Do NOT chart on this placeholder) 1 each 1X ONCE MC ; Start 12/07/16 at 22:45; Stop 12/07/16 at 22:46; Status UNV Pneumococcal Polyvalent Vaccine (Do NOT chart on this placeholder) 1 each 1X ONCE MC ; Start 12/07/16 at 22:45; Stop 12/07/16 at 22:46; Status UNV Influenza Virus Vaccine Quadrival (Fluarix Quad [id number] Syringe) 0.5 ml ONCE ONCE VAX IM ; Start 12/08/16 at 09:00; Stop 12/08/16 at 09:01; Status DC Pneumococcal Polyvalent Vaccine (Pneumovax 23) 0.5 ml ONCE ONCE VAX IM ; Start 12/08/16 at 09:00; Stop 12/08/16 at 09:01; Status DC Labetalol HCl (Normodyne) 10 mg 1X ONCE IVP Last administered on 12/08/16 08: 56; Start 12/08/16 at 08:30; Stop 12/08/16 at 08:35; Status DC Alprazolam (Xanax) 0.5 mg 1X ONCE PO Last administered on 12/08/16 08:40; Start 12/08/16 at 08:45; Stop 12/08/16 at 08:46; Status DC Aspirin (Children'S Aspirin) 324 mg 1X ONCE PO Last administered on 12/08/16 13:44; Start 12/08/16 at 09:30; Stop 12/08/16 at 09:31; Status DC Aspirin (Jada Aspirin) 325 mg DAILYWBKFT PO ; Start 12/09/16 at 08:00; Stop at 08:00; Status DC Heparin Sodium (Porcine) 4000 unit 4,000 unit 1X ONCE IV ; Start 12/08/16 at 09 :30; Stop 12/08/16 at 14:21; Status DC Midazolam HCl 100 ml @ As Directed STK-MED ONCE IV ; Start 12/08/16 at 09:52; Stop 12/08/16 at 09:53; Status DC Propofol (Diprivan) 100 ml @ 0 mls/hr CONT PRN IV SEE I/O RECORD Last administered on 12/08/16 23:49; Start 12/08/16 at 10:00 Famotidine (Pepcid) 20 mg QHS IVP Last administered on 12/18/16 21:50; Start 12/08/16 at 21:00 Heparin Sodium (Porcine) 5000 unit 5,000 unit Q8HRS SQ ; Start 12/08/16 at 14:00 ; Stop 12/08/16 at 14:00; Status DC Norepinephrine Bitartrate 8 mg/ Sodium Chloride 258 ml @ 1.93 mls/hr CONT PRN IV SEE I/O RECORD; Start 12/08/16 at 10:15; Status Cancel Dopamine HCl/ Dextrose 250 ml @ As Directed STK-MED ONCE IV ; Start 12/08/16 at 10:07; Stop 12/08/16 at 10:08; Status DC Norepinephrine Bitartrate 8 mg/ Sodium Chloride 258 ml @ 0 mls/hr CONT PRN IV SEE I/O RECORD Last administered on 12/09/16 08:46; Start 12/08/16 at 10:15; Stop 12/09/16 at 11:47; Status DC Dopamine HCl/ Dextrose 250 ml @ 10.084 mls/ hr CONT PRN IV SEE I/O RECORD Last administered on 12/08/16 10:00; Start 12/08/16 at 10:15 Sodium Bicarbonate/ Sodium Chloride (Iv Sodium Chloride 0.45%) 1,050 ml @ 200 mls/hr Q5H15M IV Last administered on 12/09/16 05:11; Start 12/08/16 at 10:30 ; Stop 12/09/16 at 08:28; Status DC Phenylephrine HCl 1 mg STK-MED ONCE IV ; Start 12/08/16 at 10:25; Stop 12/08/16 at 10:26; Status DC Aspirin 300 mg 300 mg 1X ONCE ME ; Start 12/08/16 at 10:45; Stop 12/08/16 at 10 :46; Status DC Sodium Chloride 1,000 ml @ 1,000 mls/hr 1X ONCE IV Last administered on 10:00; Start 12/08/16 at 11:45; Stop 12/08/16 at 12:44; Status DC Sodium Chloride (Iv Sodium Chloride 0.9% 1000ml Bag) 1,000 ml @ 1,000 mls/hr 1X ONCE IV Last administered on 12/08/16 10:00; Start 12/08/16 at 11:45; Stop 12/08/16 at 12:44; Status DC Albuterol/ Ipratropium (Duoneb) 3 ml RTQID NEB Last administered on 12/08/16 19:44; Start 12/08/16 at 12:30; Stop 12/09/16 at 05:17; Status DC Budesonide 0.5 mg 0.5 mg RTBID NEB Last administered on 12/19/16 08:49; Start 12/08/16 at 12:30 Sodium Chloride 1,000 ml @ 1,000 mls/hr 1X ONCE IV Last administered on 11:00; Start 12/08/16 at 12:15; Stop 12/08/16 at 13:14; Status DC Sodium Chloride 1,000 ml @ 1,000 mls/hr 1X ONCE IV Last administered on 11:00; Start 12/08/16 at 12:15; Stop 12/08/16 at 13:14; Status DC Heparin Sodium/ Dextrose 500 ml @ 0 mls/hr CONT PRN IV SEE I/O RECORD Last administered on 12/09/16 13:11; Start 12/08/16 at 12:45; Stop 12/13/16 at 13:10 ; Status DC Heparin Sodium (Porcine) 1,350 unit PRN Q6HRS PRN IV FOR UFH LEVEL LESS THAN 0.2 Last administered on 12/09/16 05:47; Start 12/08/16 at 12:45; Stop at 13:10; Status DC Etomidate (Amidate) 20 mg STK-MED ONCE IV ; Start 12/08/16 at 13:00; Stop at 13:01; Status DC Succinylcholine Chloride 200 mg 200 mg STK-MED ONCE .ROUTE ; Start 12/08/16 at 13:00; Stop 12/08/16 at 13:01; Status DC Piperacillin Sod/ Tazobactam Sod 3.375 gm/Sodium Chloride 50 ml @ 100 mls/hr Q6HRS IV ; Start 12/08/16 at 18:00; Stop 12/08/16 at 18:00; Status DC Vancomycin HCl 1 gm/Sodium Chloride 250 ml @ 250 mls/hr 1X ONCE IV Last administered on 12/08/16 14:21; Start 12/08/16 at 14:00; Stop 12/08/16 at 14:59 ; Status DC Piperacillin Sod/ Tazobactam Sod 2.25 gm/Sodium Chloride 50 ml @ 100 mls/hr Q6HRS IV Last administered on 12/09/16 06:17; Start 12/08/16 at 14:00; Stop at 08:25; Status DC Midazolam HCl 100 ml @ 0 mls/hr CONT PRN IV SEE I/O RECORD Last administered on 12/17/16 04:53; Start 12/08/16 at 10:30 Fentanyl Citrate (Fentanyl 600 Mcg/30 ml OIL DERRICK OPERATOR) 30 ml @ 0 mls/hr CONT PRN IV PROTOCOL Last administered on 12/17/16 04:54; Start 12/09/16 at 05:15 Fentanyl Citrate (Fentanyl 2ml Vial) 25 mcg PRN Q1HR PRN IV COMM; Start at 05:15 Fentanyl Citrate (Fentanyl 2ml Vial) 50 mcg PRN Q1HR PRN IV COMM Last administered on 12/18/16 21:54; Start 12/09/16 at 05:15 Ipratropium [place] (Atrovent) 0.5 mg RTQID NEB Last administered on 12/19/16 08:49; Start 12/09/16 at 08:00 Aspirin (Children'S Aspirin) 81 mg DAILYWBKFT PO Last administered on 08:37; Start 12/09/16 at 08:00 Chlorhexidine Gluconate 15 ml 15 ml BID MM Last administered on 12/18/16 21:49 ; Start 12/09/16 at 09:00; Stop 12/19/16 at 08:54; Status DC Sodium Bicarbonate 150 meq/Dextrose 1,150 ml @ 100 mls/hr [id number] IV Last administered on 12/10/16 09:34; Start 12/09/16 at 09:00; Stop 12/10/16 at 12:14 ; Status DC Piperacillin Sod/ Tazobactam Sod 3.375 gm/Sodium Chloride 50 ml @ 100 mls/hr Q6HRS IV Last administered on 12/11/16 06:01; Start 12/09/16 at 12:00; Stop at 07:47; Status DC Norepinephrine Bitartrate 16 mg/ Sodium Chloride 266 ml @ 0.99 mls/hr CONT PRN IV SEE I/O RECORD Last administered on 12/09/16 20:36; Start 12/09/16 at 12 :00 Doxycycline Hyclate/Dextrose 100 ml @ 50 mls/hr Q12HR IV Last administered on 12/13/16 20:50; Start 12/09/16 at 13:00; Stop 12/14/16 at 08:34; Status DC Atropine Sulfate 0.5 mg STK-MED ONCE .ROUTE ; Start 12/08/16 at 10:30; Stop at 13:18; Status DC Epinephrine HCl 3 mg STK-MED ONCE .ROUTE ; Start 12/08/16 at 10:30; Stop at 13:18; Status DC Calcium Gluconate 1000 mg 1,000 mg 1X ONCE IVP ; Start 12/10/16 at 10:00; Stop 12/10/16 at 10:01; Status UNV Magnesium Sulfate/ Dextrose 50 ml @ 25 mls/hr 1X ONCE IV Last administered on 12/10/16 11:40; Start 12/10/16 at 12:00; Stop 12/10/16 at 13:59; Status DC Calcium Gluconate 1000 mg/Sodium Chloride 110 ml @ 220 mls/hr 1X ONCE IV Last administered on 12/10/16 11:36; Start 12/10/16 at 12:00; Stop 12/10/16 at 12:29; Status DC Magnesium Sulfate/ Dextrose 50 ml @ 25 mls/hr PRN DAILY PRN IV for Mag < 1.7 on am labs; Start 12/10/16 at 12:15; Stop 12/13/16 at 09:57; Status DC Amino Acids/ Glycerin/ Electrolytes 1,000 ml @ 80 mls/hr [id number] IV ; Start at 12:30; Stop 12/10/16 at 12:30; Status DC Albumin Human (Albuminar) 100 ml @ 100 mls/hr TID IV ; Start 12/10/16 at 14:00 ; Stop 12/10/16 at 14:00; Status DC Calcium Gluconate 2000 mg 2,000 mg TID IVP ; Start 12/10/16 at 14:00; Stop 12/10 at 14:00; Status DC Piperacillin Sod/ Tazobactam Sod 2.25 gm/Sodium Chloride 50 ml @ 100 mls/hr Q6HRS IV Last administered on 12/18/16 05:58; Start 12/11/16 at 12:00; Stop at 07:17; Status DC Linezolid (Zyvox Premix) 300 ml @ 300 mls/hr Q12HR IV Last administered on 21:24; Start 12/11/16 at 09:00; Stop 12/18/16 at 07:17; Status DC Info 1 each 1 each PRN DAILY PRN MC SEE COMMENTS Last administered on 08:21; Start 12/11/16 at 08:15; Stop 12/13/16 at 13:13; Status DC Potassium Phosphate/Sodium Chloride (Potassium Phosphate/Iv Sodium Chloride 0.9 % 100ml) 104.5333 ml @ 52.267 m... Q2H IV Last administered on 12/11/16 17:22 ; Start 12/11/16 at 09:00; Stop 12/11/16 at 14:59; Status DC Furosemide 20 mg 20 mg 1X ONCE IVP Last administered on 12/11/16 11:10; Start 12/11/16 at 10:00; Stop 12/11/16 at 10:03; Status DC Dobutamine HCl/ Dextrose 250 ml @ 0 mls/hr CONT PRN IV SEE I/O RECORD Last administered on 12/11/16 15:05; Start 12/11/16 at 14:45 Magnesium Sulfate/ Dextrose 50 ml @ 25 mls/hr PRN DAILY PRN IV for Mag < 1.7 on am labs; Start 12/12/16 at 08:45; Stop 12/13/16 at 09:57; Status DC Potassium Chloride 50 ml @ 50 mls/hr PRN Q6HRS PRN IV For K < 3.7; Start at 08:45; Stop 12/13/16 at 09:57; Status DC Potassium Chloride (KCl Premix 20meq) 50 ml @ 50 mls/hr PRN Q2HR PRN IV total of 40mEq for K < 3.5; Start 12/12/16 at 08:45; Stop 12/13/16 at 09:57; Status DC Acetylcysteine 1200 mg 1,200 mg BID PO Last administered on 12/13/16 20:50; Start 12/12/16 at 09:00; Stop 12/14/16 at 08:17; Status DC Potassium Chloride (KCl Premix 20meq) 50 ml @ 50 mls/hr Q1H IV Last administered on 12/12/16 13:16; Start 12/12/16 at 09:00; Stop 12/12/16 at 10:59 ; Status DC Lidocaine/Sodium Bicarbonate 20 ml 20 ml STK-MED ONCE IJ ; Start 12/12/16 at 12: 13; Stop 12/12/16 at 12:14; Status DC Heparin Sodium/ Sodium Chloride 500 ml @ As Directed STK-MED ONCE .ROUTE ; Start 12/12/16 at 12:14; Stop 12/12/16 at 12:15; Status DC Lidocaine/Sodium Bicarbonate (Buffered Lidocaine 1%) 3 ml 1X ONCE IJ Last administered on 12/12/16 13:08; Start 12/12/16 at 12:15; Stop 12/12/16 at 12:17 ; Status DC Heparin Sodium (Porcine) 2,500 unit 1X ONCE INT CAT Last administered on 13:08; Start 12/12/16 at 12:15; Stop 12/12/16 at 12:17; Status DC Heparin Sodium/ Sodium Chloride 60 unit 60 unit 1X ONCE IV Last administered on 12/12/16 12:15; Start 12/12/16 at 12:15; Stop 12/12/16 at 12:17; Status DC Heparin Sodium/ Sodium Chloride 1,500 ml @ As Directed STK-MED ONCE .ROUTE ; Start 12/12/16 at 15:03; Stop 12/12/16 at 15:04; Status DC Lidocaine HCl 20 ml STK-MED ONCE .ROUTE ; Start 12/12/16 at 15:03; Stop at 15:04; Status DC Iodixanol (Visipaque 320) 100 ml STK-MED ONCE .ROUTE ; Start 12/12/16 at 15:04; Stop 12/12/16 at 15:05; Status DC Heparin Sodium/ Sodium Chloride 1,000 unit 1X ONCE IART Last administered on 15:41; Start 12/12/16 at 15:30; Stop 12/12/16 at 15:32; Status DC Iodixanol (Visipaque 320) 100 ml 1X ONCE IART Last administered on 12/12/16 15:41; Start 12/12/16 at 15:30; Stop 12/12/16 at 15:32; Status DC Lidocaine HCl 4 ml 4 ml 1X ONCE IJ Last administered on 12/12/16 15:41; Start 12/12/16 at 15:30; Stop 12/12/16 at 15:32; Status DC Potassium Chloride 50 ml @ 50 mls/hr 1X ONCE IV Last administered on 04:13; Start 12/13/16 at 04:15; Stop 12/13/16 at 05:14; Status DC Potassium Chloride 50 ml @ 50 mls/hr 1X ONCE IV Last administered on 03:13; Start 12/13/16 at 03:15; Stop 12/13/16 at 04:14; Status DC Potassium Chloride 50 ml @ 50 mls/hr Q1H IV ; Start 12/13/16 at 09:00; Stop at 09:00; Status DC Furosemide 100 mg/ Sodium Chloride 100 ml @ 0 mls/hr CONT PRN IV SEE I/O RECORD Last administered on 12/13/16 11:43; Start 12/13/16 at 10:00; Stop 12/14 at 08:17; Status DC Magnesium Sulfate/ Dextrose 50 ml @ 25 mls/hr PRN DAILY PRN IV for Mag < 1.7 on am labs; Start 12/13/16 at 10:00 Potassium Chloride 50 ml @ 50 mls/hr PRN Q6HRS PRN IV For K < 3.7 Last administered on 12/15/16 01:08; Start 12/13/16 at 10:00 Potassium Chloride 50 ml @ 50 mls/hr PRN Q2HR PRN IV total of 40mEq for K < 3.5; Start 12/13/16 at 10:00 Potassium Phosphate 40 mmol/ Sodium Chloride 113.3333 ml @ 52.267 m... PRN 1X PRN IV SEE COMMENTS; Start 12/13/16 at 10:00; Stop 12/13/16 at 23:59; Status DC Sodium Chloride 1,000 ml @ 1,000 mls/hr Q1H PRN IV hypotension; Start 12/13/16 at 14:51; Stop 12/13/16 at 20:50; Status DC Sodium Chloride (Iv Sodium Chloride 0.9% 1000ml Bag) 1,000 ml @ 400 mls/hr Q2H30M PRN IV PATENCY; Start 12/13/16 at 14:51; Stop 12/14/16 at 02:50; Status DC Info (PHARMACY MONITORING -- do not chart) 1 each PRN DAILY PRN MC SEE COMMENTS ; Start 12/13/16 at 15:00; Status UNV Info 1 each 1 each PRN DAILY PRN MC SEE COMMENTS; Start 12/13/16 at 15:00; Stop 12/15/16 at 08:35; Status DC Sodium Phosphate 0.4 mmol/Dextrose 1 ml @ 50 mls/hr BID IV ; Start 12/14/16 at 09:00; Status UNV Albumin Human (Albuminar) 100 ml @ 100 mls/hr TID IV Last administered on 12/15 21:14; Start 12/14/16 at 09:00; Stop 12/15/16 at 21:59; Status DC Darbepoetin Koffi 60 mcg 60 mcg WEEKLYHS SQ Last administered on 12/14/16 21:07 ; Start 12/14/16 at 21:00 Sodium Phosphate/ Dextrose 113.3333 ml @ 28.333 m... Q4H IV Last administered on 12/14/16 14:59; Start 12/14/16 at 09:00; Stop 12/14/16 at 16:59; Status DC Info (PHARMACY MONITORING -- do not chart) 1 each PRN DAILY PRN MC SEE COMMENTS ; Start 12/14/16 at 11:00; Status UNV Info 1 each 1 each PRN DAILY PRN MC SEE COMMENTS; Start 12/14/16 at 11:00; Status UNV Albumin Human 200 ml @ 200 mls/hr 1X PRN PRN IV Hypotension; Start 12/14/16 at 13:30; Stop 12/14/16 at 19:00; Status DC Sodium Chloride 1,000 ml @ 1,000 mls/hr Q1H PRN IV hypotension; Start 12/15/16 at 06:32; Stop 12/15/16 at 09:09; Status DC Albumin Human 200 ml @ 200 mls/hr 1X PRN PRN IV Hypotension Last administered on 12/15/16 07:38; Start 12/15/16 at 06:45; Stop 12/15/16 at 12:44; Status DC Sodium Chloride (Iv Sodium Chloride 0.9% 1000ml Bag) 1,000 ml @ 400 mls/hr Q2H30M PRN IV PATENCY; Start 12/15/16 at 06:32; Stop 12/15/16 at 18:31; Status DC Info 1 each 1 each PRN DAILY PRN MC SEE COMMENTS; Start 12/15/16 at 06:45 Piperacillin Sod/ Tazobactam Sod 2.25 gm/Sodium Chloride 50 ml @ 100 mls/hr Q8HRS IV ; Start 12/15/16 at 14:00; Stop 12/15/16 at 14:00; Status DC Piperacillin Sod/ Tazobactam Sod 2.25 gm/Sodium Chloride 50 ml @ 100 mls/hr Q6HRS IV ; Start 12/15/16 at 12:00; Status Cancel Dexmedetomidine HCl 200 mcg/ Sodium Chloride 50 ml @ 0 mls/hr CONT PRN IV PER PROTOCOL Last administered on 12/17/16t 18:11; Start 12/16/16 at 12:15; Stop at 07:51; Status DC Sodium Chloride (Iv Sodium Chloride 0.9% 500ml Bag) 500 ml @ 500 mls/hr 1X PRN PRN IV SEE COMMENTS; Start 12/16/16 at 12:15 Atropine Sulfate 0.5 mg 0.5 mg PRN Q5MIN PRN IV SEE COMMENTS; Start 12/16/16 at 12:15 Sodium Chloride 1,000 ml @ 1,000 mls/hr Q1H PRN IV hypotension; Start 12/16/16 at 20:04; Stop 12/17/16 at 02:03; Status DC Albumin Human (Albuminar) 200 ml @ 200 mls/hr 1X PRN PRN IV Hypotension Last administered on 12/16/16t 20:30; Start 12/16/16 at 20:15; Stop 12/17/16 at 02:14 ; Status DC Sodium Chloride (Normal Saline Flush) 10 ml 1X PRN PRN IV AP catheter pack; Start 12/16/16 at 20:15; Stop 12/17/16 at 20:14; Status DC Sodium Chloride 10 ml 10 ml 1X PRN PRN IV [employer] catheter pack; Start 12/16/16 at 20:15; Stop 12/17/16 at 20:14; Status DC Sodium Chloride (Iv Sodium Chloride 0.9% 1000ml Bag) 1,000 ml @ 400 mls/hr Q2H30M PRN IV PATENCY; Start 12/16/16 at 20:04; Stop 12/17/16 at 08:03; Status DC Info (PHARMACY MONITORING -- do not chart) 1 each PRN DAILY PRN MC SEE COMMENTS ; Start 12/16/16 at 20:15; Status UNV Info (PHARMACY MONITORING -- do not chart) 1 each PRN DAILY PRN MC SEE COMMENTS ; Start 12/16/16 at 20:15; Status UNV Enoxaparin Sodium 40 mg 40 mg Q24H SQ Last administered on 12/18/16 16:19; Start 12/17/16 at 16:00; Stop 12/19/16 at 07:31; Status DC Albumin Human (Albuminar) 100 ml @ 100 mls/hr 1X ONCE IV ; Start 12/17/16 at 20:00; Stop 12/17/16 at 20:59; Status DC Heparin Sodium (Porcine) 5,000 unit Q12HR SQ Last administered on 12/19/16 08: 15; Start 12/19/16 at 09:00 Furosemide 40 mg 40 mg 1X ONCE IVP Last administered on 12/19/16 08:13; Start 12/19/16 at 08:00; Stop 12/19/16 at 08:01; Status DC Potassium Chloride (KCl Premix 20meq) 50 ml @ 25 mls/hr Q2H IV Last administered on 12/19/16 08:16; Start 12/19/16 at 08:30; Stop 12/19/16 at 10:29 ; Status DC Lorazepam (Ativan) 2 mg STK-MED ONCE .ROUTE ; Start 12/19/16 at 10:51; Stop at 10:52; Status DC Lorazepam (Ativan) 4 mg 1X ONCE IV ; Start 12/19/16 at 11:15; Stop 12/19/16 at 11:16 Active Scripts Active Ultram (Tramadol Hcl) 50 Mg Tablet 50 Mg PO Q6H PRN Robaxin (Methocarbamol) 500 Mg Tablet 500 Mg PO QID Reported Percocet 5-325 Mg Tablet (Oxycodone/Acetaminophen) 1 Each Tablet 1-2 Tab PO Q4HRS Vitals/I & O Vital Sign - Last 24 Hours 12/18/16 12/18/16 12/18/16 12/18/16 12:00 12:00 12:32 13:00 Temp 98.4 98.4 Pulse 76 80 Resp 27 32 B/P 152/80 158/87 Pulse Ox 93 93 94 O2 Delivery Nasal Cannula Nasal Cannula Nasal Cannula Nasal Cannula O2 Flow Rate 3.0 3.0 2.0 3.0 12/18/16 12/18/16 12/18/16 12/18/16 14:00 15:35 16:00 18:57 Temp 97.9 97.9 Pulse 79 74 Resp B/P 167/86 158/86 Pulse Ox 93 94 93 94 O2 Delivery Nasal Cannula Nasal Cannula Nasal Cannula Nasal Cannula O2 Flow Rate 3.0 2.0 3.0 2.0 12/18/16 12/18/16 12/18/16 12/18/16 20:00 20:00 21:54 22:35 Temp 97.5 97.5 Pulse 73 Resp 22 20 20 B/P 179/85 Pulse Ox 94 96 95 O2 Delivery Nasal Cannula Nasal Cannula Nasal Cannula Nasal Cannula O2 Flow Rate 3.0 3.0 3.0 3.0 12/19/16 12/19/16 12/19/16 12/19/16 00:00 04:00 08:00 08:00 Temp 97.9 98.0 97.5 97.9 98.0 97.5 Pulse 68 90 81 Resp 25 B/P 177/78 156/84 158/84 Pulse Ox 93 94 95 O2 Delivery Nasal Cannula Nasal Cannula Venturi Mask Venturi Mask O2 Flow Rate 3.0 3.0 15.0 15.0 12/19/16 08:20 Pulse Ox 94 O2 Delivery Venturi Mask O2 Flow Rate 15.0 Intake and Output 12/18/16 12/18/16 12/19/16 15:00 23:00 07:00 Intake Total 0 ml Output Total 520 ml 300 ml 225 ml Balance -520 ml -300 ml -225 ml MAGNO CHAPARRO III DO Dec 19, 2016 11:22
[2016-12-19] MEDS ORDERED: LORAZEPAM 2 MG/ML VIAL IV PRN ×2 (11:30→16:30)
[2016-12-19] MEDS ORDERED: hydrALAZINE 20 MG/ML VIAL. IVP PRN (12:00)
--- NOTE | 2016-12-19 12:41 | RAD ---
PROCEDURE MRI brain without contrast. HISTORY Seizures. TECHNIQUE Sagittal T1, axial T1, axial T2, axial FLAIR, axial T2 gradient, diffusion imaging with ADC map, oblique coronal T2, and oblique coronal FLAIR series are provided. Despite repeat imaging and fast acquisition sequences, there is significant motion. There is still diagnostic information available. COMPARISON None. FINDINGS There is prominence of the ventricles and sulci, more than expected for age. Right lateral ventricle is slightly larger than the left. There is no gross intracranial hemorrhage or extra-axial fluid collection. There is no mass effect or midline shift. There is no restricted diffusion to suggest an acute infarct. Cervicomedullary junction is unremarkable. Intracranial flow voids are preserved centrally. There is pansinus mucosal thickening. This is greatest in the sphenoid sinuses and left maxillary sinus. Partial opacification of the mastoid air cells is noted. Oblique coronal imaging through the temporal lobes are nondiagnostic for evaluation of mesial temporal sclerosis given motion. IMPRESSION 1. Motion limited study demonstrates no acute infarct. 2. Brain parenchymal volume loss, advanced for age. Electronically signed by: Brennan Vega MD (Dec 19, 2016 12:39:52)
[2016-12-19] MEDS ORDERED: DIALYSIS PATIENT. MC PRN ×2 (14:00)
--- NOTE | 2016-12-19 14:31 | PDOC ---
PULMONARY PROGRESS NOTES Subjective events of last night noted stable on VM Vitals Vital Signs Date Time Temp Pulse Resp B/P Pulse Ox O2 Delivery O2 Flow Rate FiO2 12/19/16 13:05 94 Venturi Mask 15.0 12/19/16 08:00 97.5 81 25 158/84 97.5 Comments ros as mentioned as above discussed w rn, off sedation agitated. ROS: No Nausea, No Chest Pain, No Abdominal Pain General: Alert, No acute distress HEENT: Other (nc at perrl, orally intubated) Lungs: Crackles, Other (No accessory muscle use) Cardiovascular: S1, S2 Abdomen: Soft, Non-tender, Other (no mass) Neuro Exam: Alert Extremities: No Edema Skin: Warm, Dry, No Rashes Labs Laboratory Tests Test 12/17/16 17:13 12/17/16 19:34 12/18/16 06:00 12/19/16 05:53 Glucose (Fingerstick) 96mg/dL (70-99) 73mg/dL (70-99) O2 Saturation 87% (92-99) Arterial Blood pH 7.50 (7.35-7.45) Arterial Blood pCO2 at Patient Temp 40mmHg (35-46) Arterial Blood pO2 at Patient Temp 50mmHg (75-108) Arterial Blood HCO3 30mmol/L (21-28) Arterial Blood Base Excess 6mmol/L (-3-3) FiO2 40 White Blood Count 19.4x10^3/uL (4.0-11.0) Red Blood Count 3.03x10^6/uL (4.30-5.70) Hemoglobin 8.9g/dL (13.0-17.5) Hematocrit 27.4% (39.0-53.0) Mean Corpuscular Volume 91fL (79-100) Mean Corpuscular Hemoglobin 29pg (25-35) Mean Corpuscular Hemoglobin Concent 32g/dL (31-37) Red Cell Distribution Width 13.9% (11.5-14.5) Platelet Count 405x10^3/uL (140-400) Neutrophils (%) (Auto) 77% (31-73) Lymphocytes (%) (Auto) 7% (24-48) Monocytes (%) (Auto) 15% (0-9) Eosinophils (%) (Auto) 0% (0-3) Basophils (%) (Auto) 1% (0-3) Neutrophils # (Auto) 14.9x10^3uL (1.8-7.7) Lymphocytes # (Auto) 1.4x10^3/uL (1.0-4.8) Monocytes # (Auto) 2.9x10^3/uL (0.0-1.1) Eosinophils # (Auto) 0.0x10^3/uL (0.0-0.7) Basophils # (Auto) 0.1x10^3/uL (0.0-0.2) Sodium Level 144mmol/L (136-145) Potassium Level 4.0mmol/L (3.5-5.1) Chloride Level 105mmol/L (98-107) Carbon Dioxide Level 24mmol/L (21-32) Anion Gap 15 (6-14) Blood Urea Nitrogen 13mg/dL (8-26) Creatinine 1.8mg/dL (0.7-1.3) Estimated GFR (Cockcroft-Gault) 48.8 Glucose Level 97mg/dL (70-99) Calcium Level 8.6mg/dL (8.5-10.1) Test 12/19/16 06:00 12/19/16 06:06 12/19/16 07:24 White Blood Count 21.1x10^3/uL (4.0-11.0) Red Blood Count 3.29x10^6/uL (4.30-5.70) Hemoglobin 9.6g/dL (13.0-17.5) Hematocrit 30.1% (39.0-53.0) Mean Corpuscular Volume 91fL (79-100) Mean Corpuscular Hemoglobin 29pg (25-35) Mean Corpuscular Hemoglobin Concent 32g/dL (31-37) Red Cell Distribution Width 14.2% (11.5-14.5) Platelet Count 491x10^3/uL (140-400) Neutrophils (%) (Auto) 74% (31-73) Lymphocytes (%) (Auto) 9% (24-48) Monocytes (%) (Auto) 16% (0-9) Eosinophils (%) (Auto) 0% (0-3) Basophils (%) (Auto) 1% (0-3) Neutrophils # (Auto) 15.6x10^3uL (1.8-7.7) Lymphocytes # (Auto) 2.0x10^3/uL (1.0-4.8) Monocytes # (Auto) 3.4x10^3/uL (0.0-1.1) Eosinophils # (Auto) 0.0x10^3/uL (0.0-0.7) Basophils # (Auto) 0.2x10^3/uL (0.0-0.2) Sodium Level 149mmol/L (136-145) Potassium Level 3.2mmol/L (3.5-5.1) Chloride Level 107mmol/L (98-107) Carbon Dioxide Level 21mmol/L (21-32) Anion Gap 21 (6-14) Blood Urea Nitrogen 21mg/dL (8-26) Creatinine 2.5mg/dL (0.7-1.3) Estimated GFR (Cockcroft-Gault) 33.4 Glucose Level 122mg/dL (70-99) Calcium Level 9.2mg/dL (8.5-10.1) Thyroid Stimulating Hormone (TSH) 4.685uIU/mL (0.358-3.74) O2 Saturation 91% (92-99) Arterial Blood pH 7.38 (7.35-7.45) Arterial Blood pCO2 at Patient Temp 31mmHg (35-46) Arterial Blood pO2 at Patient Temp 71mmHg (75-108) Arterial Blood HCO3 18mmol/L (21-28) Arterial Blood Base Excess -6mmol/L (-3-3) FiO2 50 Urine Opiates Screen Neg (NEG) Urine Methadone Screen Neg (NEG) Urine Barbiturates Neg (NEG) Urine Phencyclidine Screen Neg (NEG) Urine Amphetamine/Methamphetamine Neg (NEG) Urine Benzodiazepines Screen Pos (NEG) Urine Cocaine Screen Neg (NEG) Urine Cannabinoids Screen Neg (NEG) Urine Ethyl Alcohol Neg (NEG) Laboratory Tests Test 12/19/16 05:53 12/19/16 06:00 12/19/16 06:06 12/19/16 07:24 Glucose (Fingerstick) 73mg/dL (70-99) White Blood Count 21.1x10^3/uL (4.0-11.0) Red Blood Count 3.29x10^6/uL (4.30-5.70) Hemoglobin 9.6g/dL (13.0-17.5) Hematocrit 30.1% (39.0-53.0) Mean Corpuscular Volume 91fL (79-100) Mean Corpuscular Hemoglobin 29pg (25-35) Mean Corpuscular Hemoglobin Concent 32g/dL (31-37) Red Cell Distribution Width 14.2% (11.5-14.5) Platelet Count 491x10^3/uL (140-400) Neutrophils (%) (Auto) 74% (31-73) Lymphocytes (%) (Auto) 9% (24-48) Monocytes (%) (Auto) 16% (0-9) Eosinophils (%) (Auto) 0% (0-3) Basophils (%) (Auto) 1% (0-3) Neutrophils # (Auto) 15.6x10^3uL (1.8-7.7) Lymphocytes # (Auto) 2.0x10^3/uL (1.0-4.8) Monocytes # (Auto) 3.4x10^3/uL (0.0-1.1) Eosinophils # (Auto) 0.0x10^3/uL (0.0-0.7) Basophils # (Auto) 0.2x10^3/uL (0.0-0.2) Sodium Level 149mmol/L (136-145) Potassium Level 3.2mmol/L (3.5-5.1) Chloride Level 107mmol/L (98-107) Carbon Dioxide Level 21mmol/L (21-32) Anion Gap 21 (6-14) Blood Urea Nitrogen 21mg/dL (8-26) Creatinine 2.5mg/dL (0.7-1.3) Estimated GFR (Cockcroft-Gault) 33.4 Glucose Level 122mg/dL (70-99) Calcium Level 9.2mg/dL (8.5-10.1) Thyroid Stimulating Hormone (TSH) 4.685uIU/mL (0.358-3.74) O2 Saturation 91% (92-99) Arterial Blood pH 7.38 (7.35-7.45) Arterial Blood pCO2 at Patient Temp 31mmHg (35-46) Arterial Blood pO2 at Patient Temp 71mmHg (75-108) Arterial Blood HCO3 18mmol/L (21-28) Arterial Blood Base Excess -6mmol/L (-3-3) FiO2 50 Urine Opiates Screen Neg (NEG) Urine Methadone Screen Neg (NEG) Urine Barbiturates Neg (NEG) Urine Phencyclidine Screen Neg (NEG) Urine Amphetamine/Methamphetamine Neg (NEG) Urine Benzodiazepines Screen Pos (NEG) Urine Cocaine Screen Neg (NEG) Urine Cannabinoids Screen Neg (NEG) Urine Ethyl Alcohol Neg (NEG) Medications Active Scripts Medications Dose Route/Sig Days Date Category Percocet 5-325 Mg Tablet (Oxycodone/Acetaminophen) 1 Each Tablet 1-2 Tab PO Q4HRS 05/25/16 Reported Ultram (Tramadol Hcl) 50 Mg Tablet 50 Mg PO Q6H PRN 05/22/16 Rx Robaxin (Methocarbamol) 500 Mg Tablet 500 Mg PO QID 05/22/16 Rx Comments cxr 12/19 increase bilateral infiltrates Impression . 1. Acute hypoxemic respiratory failure, multifactorial in etiology.(septic shock, CHF, Metabolic acidosis, Renal failure,Possible pneumonia) 2. Extubated 12/17/ increase hypoxia early am due to seizure? aspiration/ increase CHF 3. CMP (EF 30%)/ cath findings c/w CHF 4. Septic shock POA. resolved 5. Acute kidney injury - currently on HD 6. Smoker. 7. History of drug abuse. 8. Status post cardiopulmonary arrest. 9. Hypotension.off pressors 10.Metabolic acidosis - resolved 11. s/ p cath the Right Atrial Pressure is 20 mmHg. The Right Ventricular Pressure is 50/30 mmHg. The Pulmonary Artery Pressure is 50/29 mmHg. The Pulmonary Catheter Wedge Pressure is 25 mmHg. LVEDP 30. This is c/w ongoing CHF Plan . 1. Continue VM 2. Follow brain MRI result 3. Bronchodilator, 4. s/p Bronch , severe tracheitis, cultures neg 5. ID recommendations 6. speech eval 7. Pepcid and heparin for stress ulcer and DVT prophylaxis. 8. Urine drug screen, pos.for cocaine 10. Follow Cardiology and nephrology recommendations. 11. HD/ UF to continue per nephrology SUZIE MCCRAY MD Dec 19, 2016 14:31
--- NOTE | 2016-12-19 16:39 | PDOC2 ---
NEUROLOGY CONSULT Date of Admission Date of Admission DATE: 12/19/16 TIME: 16:23 Reason for Consult Reason for Consult: IMPRESSION: Seizures, provoked. Cocaine, Cannabinoids, opiates, benzo positive in system. 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 Metabolic encephalopathy. Respiratory failure. Sepsis likely. Renal failure on dialysis. Bilateral pulmonary infiltrate. CVA symptoms but no evidence of acute CVA this time. RECOMMENDATIONS/PLAN: Brain MRI performed. EEG performed. Ativan 1 -2 mg IV PRN q4h for seizures. Keppra 500 mg IV q12h if has further seizures, but not effective to substance provoked seizures. Treat medical diseases. Patient education for substances and drugs abstinence. Discussed in detail with his in am and his daughters in pm at bedside in ICU. Brain MRI 12/19: No acute CVA. EEG on 12/19: No seizure activity except the posterior dominant rhythm is slow for his age. HISTORY OF THE PRESENT ILLNESS: This is a 51-y-old AA male patient who was initailly admitted into the hospital due to medical diseases. He was intubated since but extubated on 12/18. He had several brief seizures or seizure like episodes and over night described as eye open, stiffness with some shaking movements for 20 seconds to 1 minute. He also had speech slurring and speech problems from time to time per nurse. No focalized motor deficits noted. PAST MEDICAL HISTORY: Please see above. PAST SURGERY HISTORY: No major surgery recently. ALLERGY: Reviewed. MEDICATIONS: Refer to [facility] FAMILY HISTORY: Non contributory. SOCIAL HISTORY: Lives with his family. Smoking, drinking, and illicit drug use. Cocaine, Cannabinoids, benzo, opiates positive in system. He uses drugs on regular basis. REVIEW OF SYSTEMS: Constitutional: Malnutrition. Head: No recent traumatic brain or head injury. Skin: No edema, or rash. Ear: No infection, tinnitus. Eyes: No vision loss or color blindness. Nose: No bleeding or purulent discharges. Hearing: No hearing decrease. Neck: No injury.. Cardiac: No [place], arrhythmia Pulmonary: Pneumonia this time. GI: No GI ulcer, GI bleeding. Urinary/genital: Renal failure this time. Endocrinologic: No cousin face, craniofacial dysmorphism, polydactyly Skeletomuscular: Generalized weakness. Neurological: see HP. Psychiatric: Drug use/abuse. Otherwise, not [id number] review of systems. PHYSICAL EXAMINATION: General appearance is in subacute distress. HEENT: Normocephalic and nontraumatic. Eyes, nose, ears, and throat are unremarkable. Neck is supple. No lymphadenopathy. No bruits are heard over the carotid artery. No crepitus. Cardiovascular: S1, S2, regular rate and rhythm. Pulmonary: Decreased to auscultation bilaterally. Abdomen: Bowel sounds are positive. Extremities: No rash, lesions, or edema. No restriction of range of motion NEUROLOGICAL EXAMINATION: Awake. Able to speak clearly at exam. partially oriented to time, and knows place and person. PERRL. EOMI. CN: no focal findings. Muscle tone: within normal. Muscle strength: 5 DTR: 2 Plantar reflex: Flexor response bilaterally Gait: not examined in bed. Sensory exam: no abnormal findings. No obvious cerebellar signs elicited. F-T-N test not examed. Current Medications Current Medications Current Medications Ketorolac Tromethamine 30 mg 30 mg 1X ONCE IV Last administered on 12/07/16 14:34; Start 12/07/16 at 14:30; Stop 12/07/16 at 14:31; Status DC Sodium Chloride 1,000 ml @ 1,000 mls/hr 1X ONCE IV Last administered on 14:34; Start 12/07/16 at 14:30; Stop 12/07/16 at 15:29; Status DC Ceftriaxone Sodium 1 gm/ Sodium Chloride 50 ml @ 100 mls/hr Q24H IV ; Start at 15:30; Stop 12/08/16 at 15:30; Status DC Azithromycin 250 ml @ 250 mls/hr 1X ONCE IV Last administered on 12/07/16 15 :48; Start 12/07/16 at 15:15; Stop 12/07/16 at 16:14; Status DC Sodium Chloride 1,000 ml @ 1,000 mls/hr 1X ONCE IV Last administered on 16:09; Start 12/07/16 at 15:15; Stop 12/07/16 at 16:14; Status DC Ceftriaxone Sodium 50 ml @ 100 mls/hr 1X ONCE IV Last administered on 15:29; Start 12/07/16 at 15:15; Stop 12/07/16 at 15:44; Status DC Sodium Chloride (Iv Sodium Chloride 0.9% 1000ml Bag) 1,000 ml @ 150 mls/hr 1X ONCE IV Last administered on 12/07/16 18:10; Start 12/07/16 at 15:15; Stop 11/11 at 21:54; Status DC Famotidine (Pepcid) 20 mg 1X ONCE IVP Last administered on 12/07/16 15:48; Start 12/07/16 at 15:45; Stop 12/07/16 at 15:46; Status DC Ondansetron HCl 4 mg 4 mg 1X ONCE IV Last administered on 12/07/16 16:09; Start 12/07/16 at 16:15; Stop 12/07/16 at 16:16; Status DC Sodium Chloride (Iv Sodium Chloride 0.9% 1000ml Bag) 1,000 ml @ 150 mls/hr Q6H40M IV Last administered on 12/08/16 06:38; Start 12/07/16 at 16:30; Stop 12/08/16 at 14:21; Status DC Ondansetron HCl (Zofran) 4 mg PRN Q6HRS PRN IV NAUSEA/VOMITING Last administered on 12/19/16 02:59; Start 12/07/16 at 16:30 Acetaminophen (Tylenol) 500 mg PRN Q6HRS PRN PO MILD PAIN / TEMP Last administered on 12/09/16 15:04; Start 12/07/16 at 16:30 Morphine Sulfate 2 mg PRN Q2HR PRN IV PAIN Last administered on 12/08/16 05:28 ; Start 12/07/16 at 16:30 Zolpidem Tartrate (Ambien) 5 mg PRN QHS PRN PO INSOMNIA Last administered on 01:06; Start 12/07/16 at 16:30; Stop 12/08/16 at 10:03; Status DC Methocarbamol (Robaxin) 500 mg QID PO Last administered on 12/07/16 21:19; Start 12/07/16 at 17:00; Stop 12/08/16 at 10:03; Status DC Oxycodone/ Acetaminophen (Percocet 5/325) 1 tab PRN Q4HRS PRN PO SEVERE PAIN; Start 12/07/16 at 16:30 Tramadol HCl (Ultram) 50 mg PRN Q6HRS PRN PO MODERATE PAIN Last administered on 12/07/16 17:11; Start 12/07/16 at 16:30 Nicotine (Nicoderm Cq 21mg) 1 patch PRN DAILY PRN TD SMOKING CESSATION; Start 12/07/16 at 16:30 Info (Do NOT chart on this placeholder) 1 each 1X ONCE MC ; Start 12/07/16 at 22:45; Stop 12/07/16 at 22:46; Status UNV Pneumococcal Polyvalent Vaccine (Do NOT chart on this placeholder) 1 each 1X ONCE MC ; Start 12/07/16 at 22:45; Stop 12/07/16 at 22:46; Status UNV Influenza Virus Vaccine Quadrival (Fluarix Quad [id number] Syringe) 0.5 ml ONCE ONCE VAX IM ; Start 12/08/16 at 09:00; Stop 12/08/16 at 09:01; Status DC Pneumococcal Polyvalent Vaccine (Pneumovax 23) 0.5 ml ONCE ONCE VAX IM ; Start 12/08/16 at 09:00; Stop 12/08/16 at 09:01; Status DC Labetalol HCl (Normodyne) 10 mg 1X ONCE IVP Last administered on 12/08/16 08: 56; Start 12/08/16 at 08:30; Stop 12/08/16 at 08:35; Status DC Alprazolam (Xanax) 0.5 mg 1X ONCE PO Last administered on 12/08/16 08:40; Start 12/08/16 at 08:45; Stop 12/08/16 at 08:46; Status DC Aspirin (Children'S Aspirin) 324 mg 1X ONCE PO Last administered on 12/08/16 13:44; Start 12/08/16 at 09:30; Stop 12/08/16 at 09:31; Status DC Aspirin (Jada Aspirin) 325 mg DAILYWBKFT PO ; Start 12/09/16 at 08:00; Stop at 08:00; Status DC Heparin Sodium (Porcine) 4000 unit 4,000 unit 1X ONCE IV ; Start 12/08/16 at 09 :30; Stop 12/08/16 at 14:21; Status DC Midazolam HCl 100 ml @ As Directed STK-MED ONCE IV ; Start 12/08/16 at 09:52; Stop 12/08/16 at 09:53; Status DC Propofol (Diprivan) 100 ml @ 0 mls/hr CONT PRN IV SEE I/O RECORD Last administered on 12/08/16 23:49; Start 12/08/16 at 10:00 Famotidine (Pepcid) 20 mg QHS IVP Last administered on 12/18/16 21:50; Start 12/08/16 at 21:00 Heparin Sodium (Porcine) 5000 unit 5,000 unit Q8HRS SQ ; Start 12/08/16 at 14:00 ; Stop 12/08/16 at 14:00; Status DC Norepinephrine Bitartrate 8 mg/ Sodium Chloride 258 ml @ 1.93 mls/hr CONT PRN IV SEE I/O RECORD; Start 12/08/16 at 10:15; Status Cancel Dopamine HCl/ Dextrose 250 ml @ As Directed STK-MED ONCE IV ; Start 12/08/16 at 10:07; Stop 12/08/16 at 10:08; Status DC Norepinephrine Bitartrate 8 mg/ Sodium Chloride 258 ml @ 0 mls/hr CONT PRN IV SEE I/O RECORD Last administered on 12/09/16 08:46; Start 12/08/16 at 10:15; Stop 12/09/16 at 11:47; Status DC Dopamine HCl/ Dextrose 250 ml @ 10.084 mls/ hr CONT PRN IV SEE I/O RECORD Last administered on 12/08/16 10:00; Start 12/08/16 at 10:15 Sodium Bicarbonate/ Sodium Chloride (Iv Sodium Chloride 0.45%) 1,050 ml @ 200 mls/hr Q5H15M IV Last administered on 12/09/16 05:11; Start 12/08/16 at 10:30 ; Stop 12/09/16 at 08:28; Status DC Phenylephrine HCl 1 mg STK-MED ONCE IV ; Start 12/08/16 at 10:25; Stop 12/08/16 at 10:26; Status DC Aspirin 300 mg 300 mg 1X ONCE MA ; Start 12/08/16 at 10:45; Stop 12/08/16 at 10 :46; Status DC Sodium Chloride 1,000 ml @ 1,000 mls/hr 1X ONCE IV Last administered on 10:00; Start 12/08/16 at 11:45; Stop 12/08/16 at 12:44; Status DC Sodium Chloride (Iv Sodium Chloride 0.9% 1000ml Bag) 1,000 ml @ 1,000 mls/hr 1X ONCE IV Last administered on 12/08/16 10:00; Start 12/08/16 at 11:45; Stop 12/08/16 at 12:44; Status DC Albuterol/ Ipratropium (Duoneb) 3 ml RTQID NEB Last administered on 12/08/16 19:44; Start 12/08/16 at 12:30; Stop 12/09/16 at 05:17; Status DC Budesonide 0.5 mg 0.5 mg RTBID NEB Last administered on 12/19/16 08:49; Start 12/08/16 at 12:30 Sodium Chloride 1,000 ml @ 1,000 mls/hr 1X ONCE IV Last administered on 11:00; Start 12/08/16 at 12:15; Stop 12/08/16 at 13:14; Status DC Sodium Chloride 1,000 ml @ 1,000 mls/hr 1X ONCE IV Last administered on 11:00; Start 12/08/16 at 12:15; Stop 12/08/16 at 13:14; Status DC Heparin Sodium/ Dextrose 500 ml @ 0 mls/hr CONT PRN IV SEE I/O RECORD Last administered on 12/09/16 13:11; Start 12/08/16 at 12:45; Stop 12/13/16 at 13:10 ; Status DC Heparin Sodium (Porcine) 1,350 unit PRN Q6HRS PRN IV FOR UFH LEVEL LESS THAN 0.2 Last administered on 12/09/16 05:47; Start 12/08/16 at 12:45; Stop at 13:10; Status DC Etomidate (Amidate) 20 mg STK-MED ONCE IV ; Start 12/08/16 at 13:00; Stop at 13:01; Status DC Succinylcholine Chloride 200 mg 200 mg STK-MED ONCE .ROUTE ; Start 12/08/16 at 13:00; Stop 12/08/16 at 13:01; Status DC Piperacillin Sod/ Tazobactam Sod 3.375 gm/Sodium Chloride 50 ml @ 100 mls/hr Q6HRS IV ; Start 12/08/16 at 18:00; Stop 12/08/16 at 18:00; Status DC Vancomycin HCl 1 gm/Sodium Chloride 250 ml @ 250 mls/hr 1X ONCE IV Last administered on 12/08/16 14:21; Start 12/08/16 at 14:00; Stop 12/08/16 at 14:59 ; Status DC Piperacillin Sod/ Tazobactam Sod 2.25 gm/Sodium Chloride 50 ml @ 100 mls/hr Q6HRS IV Last administered on 12/09/16 06:17; Start 12/08/16 at 14:00; Stop at 08:25; Status DC Midazolam HCl 100 ml @ 0 mls/hr CONT PRN IV SEE I/O RECORD Last administered on 12/17/16 04:53; Start 12/08/16 at 10:30 Fentanyl Citrate (Fentanyl 600 Mcg/30 ml HAND STRAIGHTENER) 30 ml @ 0 mls/hr CONT PRN IV PROTOCOL Last administered on 12/17/16 04:54; Start 12/09/16 at 05:15 Fentanyl Citrate (Fentanyl 2ml Vial) 25 mcg PRN Q1HR PRN IV COMM; Start at 05:15 Fentanyl Citrate (Fentanyl 2ml Vial) 50 mcg PRN Q1HR PRN IV COMM Last administered on 12/18/16 21:54; Start 12/09/16 at 05:15 Ipratropium [place] (Atrovent) 0.5 mg RTQID NEB Last administered on 12/19/16 13:05; Start 12/09/16 at 08:00 Aspirin (Children'S Aspirin) 81 mg DAILYWBKFT PO Last administered on 08:37; Start 12/09/16 at 08:00 Chlorhexidine Gluconate 15 ml 15 ml BID MM Last administered on 12/18/16 21:49 ; Start 12/09/16 at 09:00; Stop 12/19/16 at 08:54; Status DC Sodium Bicarbonate 150 meq/Dextrose 1,150 ml @ 100 mls/hr [id number] IV Last administered on 12/10/16 09:34; Start 12/09/16 at 09:00; Stop 12/10/16 at 12:14 ; Status DC Piperacillin Sod/ Tazobactam Sod 3.375 gm/Sodium Chloride 50 ml @ 100 mls/hr Q6HRS IV Last administered on 12/11/16 06:01; Start 12/09/16 at 12:00; Stop at 07:47; Status DC Norepinephrine Bitartrate 16 mg/ Sodium Chloride 266 ml @ 0.99 mls/hr CONT PRN IV SEE I/O RECORD Last administered on 12/09/16 20:36; Start 12/09/16 at 12 :00 Doxycycline Hyclate/Dextrose 100 ml @ 50 mls/hr Q12HR IV Last administered on 12/13/16 20:50; Start 12/09/16 at 13:00; Stop 12/14/16 at 08:34; Status DC Atropine Sulfate 0.5 mg STK-MED ONCE .ROUTE ; Start 12/08/16 at 10:30; Stop at 13:18; Status DC Epinephrine HCl 3 mg STK-MED ONCE .ROUTE ; Start 12/08/16 at 10:30; Stop at 13:18; Status DC Calcium Gluconate 1000 mg 1,000 mg 1X ONCE IVP ; Start 12/10/16 at 10:00; Stop 12/10/16 at 10:01; Status UNV Magnesium Sulfate/ Dextrose 50 ml @ 25 mls/hr 1X ONCE IV Last administered on 12/10/16 11:40; Start 12/10/16 at 12:00; Stop 12/10/16 at 13:59; Status DC Calcium Gluconate 1000 mg/Sodium Chloride 110 ml @ 220 mls/hr 1X ONCE IV Last administered on 12/10/16 11:36; Start 12/10/16 at 12:00; Stop 12/10/16 at 12:29; Status DC Magnesium Sulfate/ Dextrose 50 ml @ 25 mls/hr PRN DAILY PRN IV for Mag < 1.7 on am labs; Start 12/10/16 at 12:15; Stop 12/13/16 at 09:57; Status DC Amino Acids/ Glycerin/ Electrolytes 1,000 ml @ 80 mls/hr [id number] IV ; Start at 12:30; Stop 12/10/16 at 12:30; Status DC Albumin Human (Albuminar) 100 ml @ 100 mls/hr TID IV ; Start 12/10/16 at 14:00 ; Stop 12/10/16 at 14:00; Status DC Calcium Gluconate 2000 mg 2,000 mg TID IVP ; Start 12/10/16 at 14:00; Stop 12/10 at 14:00; Status DC Piperacillin Sod/ Tazobactam Sod 2.25 gm/Sodium Chloride 50 ml @ 100 mls/hr Q6HRS IV Last administered on 12/18/16 05:58; Start 12/11/16 at 12:00; Stop at 07:17; Status DC Linezolid (Zyvox Premix) 300 ml @ 300 mls/hr Q12HR IV Last administered on 21:24; Start 12/11/16 at 09:00; Stop 12/18/16 at 07:17; Status DC Info 1 each 1 each PRN DAILY PRN MC SEE COMMENTS Last administered on 08:21; Start 12/11/16 at 08:15; Stop 12/13/16 at 13:13; Status DC Potassium Phosphate/Sodium Chloride (Potassium Phosphate/Iv Sodium Chloride 0.9 % 100ml) 104.5333 ml @ 52.267 m... Q2H IV Last administered on 12/11/16 17:22 ; Start 12/11/16 at 09:00; Stop 12/11/16 at 14:59; Status DC Furosemide 20 mg 20 mg 1X ONCE IVP Last administered on 12/11/16 11:10; Start 12/11/16 at 10:00; Stop 12/11/16 at 10:03; Status DC Dobutamine HCl/ Dextrose 250 ml @ 0 mls/hr CONT PRN IV SEE I/O RECORD Last administered on 12/11/16 15:05; Start 12/11/16 at 14:45 Magnesium Sulfate/ Dextrose 50 ml @ 25 mls/hr PRN DAILY PRN IV for Mag < 1.7 on am labs; Start 12/12/16 at 08:45; Stop 12/13/16 at 09:57; Status DC Potassium Chloride 50 ml @ 50 mls/hr PRN Q6HRS PRN IV For K < 3.7; Start at 08:45; Stop 12/13/16 at 09:57; Status DC Potassium Chloride (KCl Premix 20meq) 50 ml @ 50 mls/hr PRN Q2HR PRN IV total of 40mEq for K < 3.5; Start 12/12/16 at 08:45; Stop 12/13/16 at 09:57; Status DC Acetylcysteine 1200 mg 1,200 mg BID PO Last administered on 12/13/16 20:50; Start 12/12/16 at 09:00; Stop 12/14/16 at 08:17; Status DC Potassium Chloride (KCl Premix 20meq) 50 ml @ 50 mls/hr Q1H IV Last administered on 12/12/16 13:16; Start 12/12/16 at 09:00; Stop 12/12/16 at 10:59 ; Status DC Lidocaine/Sodium Bicarbonate 20 ml 20 ml STK-MED ONCE IJ ; Start 12/12/16 at 12: 13; Stop 12/12/16 at 12:14; Status DC Heparin Sodium/ Sodium Chloride 500 ml @ As Directed STK-MED ONCE .ROUTE ; Start 12/12/16 at 12:14; Stop 12/12/16 at 12:15; Status DC Lidocaine/Sodium Bicarbonate (Buffered Lidocaine 1%) 3 ml 1X ONCE IJ Last administered on 12/12/16 13:08; Start 12/12/16 at 12:15; Stop 12/12/16 at 12:17 ; Status DC Heparin Sodium (Porcine) 2,500 unit 1X ONCE INT CAT Last administered on 13:08; Start 12/12/16 at 12:15; Stop 12/12/16 at 12:17; Status DC Heparin Sodium/ Sodium Chloride 60 unit 60 unit 1X ONCE IV Last administered on 12/12/16 12:15; Start 12/12/16 at 12:15; Stop 12/12/16 at 12:17; Status DC Heparin Sodium/ Sodium Chloride 1,500 ml @ As Directed STK-MED ONCE .ROUTE ; Start 12/12/16 at 15:03; Stop 12/12/16 at 15:04; Status DC Lidocaine HCl 20 ml STK-MED ONCE .ROUTE ; Start 12/12/16 at 15:03; Stop at 15:04; Status DC Iodixanol (Visipaque 320) 100 ml STK-MED ONCE .ROUTE ; Start 12/12/16 at 15:04; Stop 12/12/16 at 15:05; Status DC Heparin Sodium/ Sodium Chloride 1,000 unit 1X ONCE IART Last administered on 15:41; Start 12/12/16 at 15:30; Stop 12/12/16 at 15:32; Status DC Iodixanol (Visipaque 320) 100 ml 1X ONCE IART Last administered on 12/12/16 15:41; Start 12/12/16 at 15:30; Stop 12/12/16 at 15:32; Status DC Lidocaine HCl 4 ml 4 ml 1X ONCE IJ Last administered on 12/12/16 15:41; Start 12/12/16 at 15:30; Stop 12/12/16 at 15:32; Status DC Potassium Chloride 50 ml @ 50 mls/hr 1X ONCE IV Last administered on 04:13; Start 12/13/16 at 04:15; Stop 12/13/16 at 05:14; Status DC Potassium Chloride 50 ml @ 50 mls/hr 1X ONCE IV Last administered on 03:13; Start 12/13/16 at 03:15; Stop 12/13/16 at 04:14; Status DC Potassium Chloride 50 ml @ 50 mls/hr Q1H IV ; Start 12/13/16 at 09:00; Stop at 09:00; Status DC Furosemide 100 mg/ Sodium Chloride 100 ml @ 0 mls/hr CONT PRN IV SEE I/O RECORD Last administered on 12/13/16 11:43; Start 12/13/16 at 10:00; Stop 12/14 at 08:17; Status DC Magnesium Sulfate/ Dextrose 50 ml @ 25 mls/hr PRN DAILY PRN IV for Mag < 1.7 on am labs; Start 12/13/16 at 10:00 Potassium Chloride 50 ml @ 50 mls/hr PRN Q6HRS PRN IV For K < 3.7 Last administered on 12/15/16 01:08; Start 12/13/16 at 10:00 Potassium Chloride 50 ml @ 50 mls/hr PRN Q2HR PRN IV total of 40mEq for K < 3.5; Start 12/13/16 at 10:00 Potassium Phosphate 40 mmol/ Sodium Chloride 113.3333 ml @ 52.267 m... PRN 1X PRN IV SEE COMMENTS; Start 12/13/16 at 10:00; Stop 12/13/16 at 23:59; Status DC Sodium Chloride 1,000 ml @ 1,000 mls/hr Q1H PRN IV hypotension; Start 12/13/16 at 14:51; Stop 12/13/16 at 20:50; Status DC Sodium Chloride (Iv Sodium Chloride 0.9% 1000ml Bag) 1,000 ml @ 400 mls/hr Q2H30M PRN IV PATENCY; Start 12/13/16 at 14:51; Stop 12/14/16 at 02:50; Status DC Info (PHARMACY MONITORING -- do not chart) 1 each PRN DAILY PRN MC SEE COMMENTS ; Start 12/13/16 at 15:00; Status UNV Info 1 each 1 each PRN DAILY PRN MC SEE COMMENTS; Start 12/13/16 at 15:00; Stop 12/15/16 at 08:35; Status DC Sodium Phosphate 0.4 mmol/Dextrose 1 ml @ 50 mls/hr BID IV ; Start 12/14/16 at 09:00; Status UNV Albumin Human (Albuminar) 100 ml @ 100 mls/hr TID IV Last administered on 12/15 21:14; Start 12/14/16 at 09:00; Stop 12/15/16 at 21:59; Status DC Darbepoetin Koffi 60 mcg 60 mcg [id number] SQ Last administered on 12/14/16t 21:07 ; Start 12/14/16 at 21:00 Sodium Phosphate/ Dextrose 113.3333 ml @ 28.333 m... Q4H IV Last administered on 12/14/16 14:59; Start 12/14/16 at 09:00; Stop 12/14/16 at 16:59; Status DC Info (PHARMACY MONITORING -- do not chart) 1 each PRN DAILY PRN MC SEE COMMENTS ; Start 12/14/16 at 11:00; Status UNV Info 1 each 1 each PRN DAILY PRN MC SEE COMMENTS; Start 12/14/16 at 11:00; Status UNV Albumin Human 200 ml @ 200 mls/hr 1X PRN PRN IV Hypotension; Start 12/14/16 at 13:30; Stop 12/14/16 at 19:00; Status DC Sodium Chloride 1,000 ml @ 1,000 mls/hr Q1H PRN IV hypotension; Start 12/15/16 at 06:32; Stop 12/15/16 at 09:09; Status DC Albumin Human 200 ml @ 200 mls/hr 1X PRN PRN IV Hypotension Last administered on 12/15/16t 07:38; Start 12/15/16 at 06:45; Stop 12/15/16 at 12:44; Status DC Sodium Chloride (Iv Sodium Chloride 0.9% 1000ml Bag) 1,000 ml @ 400 mls/hr Q2H30M PRN IV PATENCY; Start 12/15/16 at 06:32; Stop 12/15/16 at 18:31; Status DC Info 1 each 1 each PRN DAILY PRN MC SEE COMMENTS; Start 12/15/16 at 06:45 Piperacillin Sod/ Tazobactam Sod 2.25 gm/Sodium Chloride 50 ml @ 100 mls/hr Q8HRS IV ; Start 12/15/16 at 14:00; Stop 12/15/16 at 14:00; Status DC Piperacillin Sod/ Tazobactam Sod 2.25 gm/Sodium Chloride 50 ml @ 100 mls/hr Q6HRS IV ; Start 12/15/16 at 12:00; Status Cancel Dexmedetomidine HCl 200 mcg/ Sodium Chloride 50 ml @ 0 mls/hr CONT PRN IV PER PROTOCOL Last administered on 12/17/16t 18:11; Start 12/16/16 at 12:15; Stop at 07:51; Status DC Sodium Chloride (Iv Sodium Chloride 0.9% 500ml Bag) 500 ml @ 500 mls/hr 1X PRN PRN IV SEE COMMENTS; Start 12/16/16 at 12:15 Atropine Sulfate 0.5 mg 0.5 mg PRN Q5MIN PRN IV SEE COMMENTS; Start 12/16/16 at 12:15 Sodium Chloride 1,000 ml @ 1,000 mls/hr Q1H PRN IV hypotension; Start 12/16/16 at 20:04; Stop 12/17/16 at 02:03; Status DC Albumin Human (Albuminar) 200 ml @ 200 mls/hr 1X PRN PRN IV Hypotension Last administered on 12/16/16 20:30; Start 12/16/16 at 20:15; Stop 12/17/16 at 02:14 ; Status DC Sodium Chloride (Normal Saline Flush) 10 ml 1X PRN PRN IV AP catheter pack; Start 12/16/16 at 20:15; Stop 12/17/16 at 20:14; Status DC Sodium Chloride 10 ml 10 ml 1X PRN PRN IV DANCE CRITIC catheter pack; Start 12/16/16 at 20:15; Stop 12/17/16 at 20:14; Status DC Sodium Chloride (Iv Sodium Chloride 0.9% 1000ml Bag) 1,000 ml @ 400 mls/hr Q2H30M PRN IV PATENCY; Start 12/16/16 at 20:04; Stop 12/17/16 at 08:03; Status DC Info (PHARMACY MONITORING -- do not chart) 1 each PRN DAILY PRN MC SEE COMMENTS ; Start 12/16/16 at 20:15; Status UNV Info (PHARMACY MONITORING -- do not chart) 1 each PRN DAILY PRN MC SEE COMMENTS ; Start 12/16/16 at 20:15; Status UNV Enoxaparin Sodium 40 mg 40 mg Q24H SQ Last administered on 12/18/16 16:19; Start 12/17/16 at 16:00; Stop 12/19/16 at 07:31; Status DC Albumin Human (Albuminar) 100 ml @ 100 mls/hr 1X ONCE IV ; Start 12/17/16 at 20:00; Stop 12/17/16 at 20:59; Status DC Heparin Sodium (Porcine) 5,000 unit Q12HR SQ Last administered on 12/19/16 08: 15; Start 12/19/16 at 09:00 Furosemide 40 mg 40 mg 1X ONCE IVP Last administered on 12/19/16 08:13; Start 12/19/16 at 08:00; Stop 12/19/16 at 08:01; Status DC Potassium Chloride (KCl Premix 20meq) 50 ml @ 25 mls/hr Q2H IV Last administered on 12/19/16 08:16; Start 12/19/16 at 08:30; Stop 12/19/16 at 10:29 ; Status DC Lorazepam (Ativan) 2 mg STK-MED ONCE .ROUTE ; Start 12/19/16 at 10:51; Stop at 10:52; Status DC Lorazepam (Ativan) 4 mg 1X ONCE IV Last administered on 12/19/16t 11:15; Start 12/19/16 at 11:15; Stop 12/19/16 at 11:16; Status DC Lorazepam (Ativan) 2 mg PRN Q2HRS PRN IV Seizure; Start 12/19/16 at 11:30 Lorazepam (Ativan) 4 mg PRN Q2HRS PRN IV Seizure; Start 12/19/16 at 11:30 Hydralazine HCl (Apresoline) 10 mg PRN Q4HRS PRN IVP ELEVATED BP, SEE COMMENTS ; Start 12/19/16 at 12:00 Info (PHARMACY MONITORING -- do not chart) 1 each PRN DAILY PRN MC SEE COMMENTS ; Start 12/19/16 at 14:00; Status UNV Info (PHARMACY MONITORING -- do not chart) 1 each PRN DAILY PRN MC SEE COMMENTS ; Start 12/19/16 at 14:00; Status UNV Active Scripts Active Ultram (Tramadol Hcl) 50 Mg Tablet 50 Mg PO Q6H PRN Robaxin (Methocarbamol) 500 Mg Tablet 500 Mg PO QID Reported Percocet 5-325 Mg Tablet (Oxycodone/Acetaminophen) 1 Each Tablet 1-2 Tab PO Q4HRS Allergies Allergies: Coded Allergies: metoclopramide (Verified Adverse Reaction, Intermediate, hyperactivity, ) Vitals VITALS Vital Signs Date Time Temp Pulse Resp B/P Pulse Ox O2 Delivery O2 Flow Rate FiO2 12/19/16 15:00 117 22 100/75 97 Venturi Mask 15.0 12/19/16 12:00 98.9 98.9 Labs Labs Laboratory Tests Test 12/17/16 17:13 12/17/16 19:34 12/18/16 06:00 12/19/16 05:53 Glucose (Fingerstick) 96mg/dL (70-99) 73mg/dL (70-99) O2 Saturation 87% (92-99) Arterial Blood pH 7.50 (7.35-7.45) Arterial Blood pCO2 at Patient Temp 40mmHg (35-46) Arterial Blood pO2 at Patient Temp 50mmHg (75-108) Arterial Blood HCO3 30mmol/L (21-28) Arterial Blood Base Excess 6mmol/L (-3-3) FiO2 40 White Blood Count 19.4x10^3/uL (4.0-11.0) Red Blood Count 3.03x10^6/uL (4.30-5.70) Hemoglobin 8.9g/dL (13.0-17.5) Hematocrit 27.4% (39.0-53.0) Mean Corpuscular Volume 91fL (79-100) Mean Corpuscular Hemoglobin 29pg (25-35) Mean Corpuscular Hemoglobin Concent 32g/dL (31-37) Red Cell Distribution Width 13.9% (11.5-14.5) Platelet Count 405x10^3/uL (140-400) Neutrophils (%) (Auto) 77% (31-73) Lymphocytes (%) (Auto) 7% (24-48) Monocytes (%) (Auto) 15% (0-9) Eosinophils (%) (Auto) 0% (0-3) Basophils (%) (Auto) 1% (0-3) Neutrophils # (Auto) 14.9x10^3uL (1.8-7.7) Lymphocytes # (Auto) 1.4x10^3/uL (1.0-4.8) Monocytes # (Auto) 2.9x10^3/uL (0.0-1.1) Eosinophils # (Auto) 0.0x10^3/uL (0.0-0.7) Basophils # (Auto) 0.1x10^3/uL (0.0-0.2) Sodium Level 144mmol/L (136-145) Potassium Level 4.0mmol/L (3.5-5.1) Chloride Level 105mmol/L (98-107) Carbon Dioxide Level 24mmol/L (21-32) Anion Gap 15 (6-14) Blood Urea Nitrogen 13mg/dL (8-26) Creatinine 1.8mg/dL (0.7-1.3) Estimated GFR (Cockcroft-Gault) 48.8 Glucose Level 97mg/dL (70-99) Calcium Level 8.6mg/dL (8.5-10.1) Test 12/19/16 06:00 12/19/16 06:06 12/19/16 07:24 White Blood Count 21.1x10^3/uL (4.0-11.0) Red Blood Count 3.29x10^6/uL (4.30-5.70) Hemoglobin 9.6g/dL (13.0-17.5) Hematocrit 30.1% (39.0-53.0) Mean Corpuscular Volume 91fL (79-100) Mean Corpuscular Hemoglobin 29pg (25-35) Mean Corpuscular Hemoglobin Concent 32g/dL (31-37) Red Cell Distribution Width 14.2% (11.5-14.5) Platelet Count 491x10^3/uL (140-400) Neutrophils (%) (Auto) 74% (31-73) Lymphocytes (%) (Auto) 9% (24-48) Monocytes (%) (Auto) 16% (0-9) Eosinophils (%) (Auto) 0% (0-3) Basophils (%) (Auto) 1% (0-3) Neutrophils # (Auto) 15.6x10^3uL (1.8-7.7) Lymphocytes # (Auto) 2.0x10^3/uL (1.0-4.8) Monocytes # (Auto) 3.4x10^3/uL (0.0-1.1) Eosinophils # (Auto) 0.0x10^3/uL (0.0-0.7) Basophils # (Auto) 0.2x10^3/uL (0.0-0.2) Sodium Level 149mmol/L (136-145) Potassium Level 3.2mmol/L (3.5-5.1) Chloride Level 107mmol/L (98-107) Carbon Dioxide Level 21mmol/L (21-32) Anion Gap 21 (6-14) Blood Urea Nitrogen 21mg/dL (8-26) Creatinine 2.5mg/dL (0.7-1.3) Estimated GFR (Cockcroft-Gault) 33.4 Glucose Level 122mg/dL (70-99) Calcium Level 9.2mg/dL (8.5-10.1) Thyroid Stimulating Hormone (TSH) 4.685uIU/mL (0.358-3.74) O2 Saturation 91% (92-99) Arterial Blood pH 7.38 (7.35-7.45) Arterial Blood pCO2 at Patient Temp 31mmHg (35-46) Arterial Blood pO2 at Patient Temp 71mmHg (75-108) Arterial Blood HCO3 18mmol/L (21-28) Arterial Blood Base Excess -6mmol/L (-3-3) FiO2 50 Urine Opiates Screen Neg (NEG) Urine Methadone Screen Neg (NEG) Urine Barbiturates Neg (NEG) Urine Phencyclidine Screen Neg (NEG) Urine Amphetamine/Methamphetamine Neg (NEG) Urine Benzodiazepines Screen Pos (NEG) Urine Cocaine Screen Neg (NEG) Urine Cannabinoids Screen Neg (NEG) Urine Ethyl Alcohol Neg (NEG) Laboratory Tests Test 12/19/16 05:53 12/19/16 06:00 12/19/16 06:06 12/19/16 07:24 Glucose (Fingerstick) 73mg/dL (70-99) White Blood Count 21.1x10^3/uL (4.0-11.0) Red Blood Count 3.29x10^6/uL (4.30-5.70) Hemoglobin 9.6g/dL (13.0-17.5) Hematocrit 30.1% (39.0-53.0) Mean Corpuscular Volume 91fL (79-100) Mean Corpuscular Hemoglobin 29pg (25-35) Mean Corpuscular Hemoglobin Concent 32g/dL (31-37) Red Cell Distribution Width 14.2% (11.5-14.5) Platelet Count 491x10^3/uL (140-400) Neutrophils (%) (Auto) 74% (31-73) Lymphocytes (%) (Auto) 9% (24-48) Monocytes (%) (Auto) 16% (0-9) Eosinophils (%) (Auto) 0% (0-3) Basophils (%) (Auto) 1% (0-3) Neutrophils # (Auto) 15.6x10^3uL (1.8-7.7) Lymphocytes # (Auto) 2.0x10^3/uL (1.0-4.8) Monocytes # (Auto) 3.4x10^3/uL (0.0-1.1) Eosinophils # (Auto) 0.0x10^3/uL (0.0-0.7) Basophils # (Auto) 0.2x10^3/uL (0.0-0.2) Sodium Level 149mmol/L (136-145) Potassium Level 3.2mmol/L (3.5-5.1) Chloride Level 107mmol/L (98-107) Carbon Dioxide Level 21mmol/L (21-32) Anion Gap 21 (6-14) Blood Urea Nitrogen 21mg/dL (8-26) Creatinine 2.5mg/dL (0.7-1.3) Estimated GFR (Cockcroft-Gault) 33.4 Glucose Level 122mg/dL (70-99) Calcium Level 9.2mg/dL (8.5-10.1) Thyroid Stimulating Hormone (TSH) 4.685uIU/mL (0.358-3.74) O2 Saturation 91% (92-99) Arterial Blood pH 7.38 (7.35-7.45) Arterial Blood pCO2 at Patient Temp 31mmHg (35-46) Arterial Blood pO2 at Patient Temp 71mmHg (75-108) Arterial Blood HCO3 18mmol/L (21-28) Arterial Blood Base Excess -6mmol/L (-3-3) FiO2 50 Urine Opiates Screen Neg (NEG) Urine Methadone Screen Neg (NEG) Urine Barbiturates Neg (NEG) Urine Phencyclidine Screen Neg (NEG) Urine Amphetamine/Methamphetamine Neg (NEG) Urine Benzodiazepines Screen Pos (NEG) Urine Cocaine Screen Neg (NEG) Urine Cannabinoids Screen Neg (NEG) Urine Ethyl Alcohol Neg (NEG) COLLETTE MOYER MD Dec 19, 2016 16:39
--- NOTE | 2016-12-19 17:10 | EEG ---
DATE OF SERVICE: 12/19/2016 EEG NUMBER: [id number] OBJECTIVE: This is a 51-year-old -[place] male patient with history of seizure or seizure like episodes since 12/19/2016. EEG was requested to evaluate seizure activity. METHODS: Twenty electrodes were applied according to the international 10-20 electrode placement system. EKG monitoring, hyperventilation, intermittent photic stimulation, monopolar and bipolar montages are routinely utilized. The record was obtained on a digital system with video monitoring. MEDICATIONS: Ativan. The patient was tested positive for cocaine, marijuana, benzo and opiates. FINDINGS: 1. Background: The patient was recorded in the awake and drowsy states. No actual sleep state was recorded. The overall background amplitude is 5-10 microvolts. A posterior dominant rhythm of 6-8 Hz is observed with superimposed slow activity in theta frequency. 2. Abnormalities: No specific epileptiform discharge or electrographic seizure is seen. No diffuse slowing. Significant artifact noted. 3. Activation: Hyperventilation was not performed because the patient was noncooperative. Intermittent photic stimulation was performed with insignificant photic driving. No specific epileptiform discharge or electrographic seizure induced. IMPRESSION: This EEG falls into the abnormal category of the study for the awake and drowsy states. No actual sleep state was recorded. The posterior dominant rhythm of 6-8 Hz is slow for age. There is superimposed slowing in theta frequency sometimes. Significant artifact noted. No focal, lateralizing, specific epileptiform discharge or electrographic seizure is seen. COLLETTE MOYER MD DR: LAWANDA/noé JOB#: [id number] / [id number] MELONY
[2016-12-19] MEDS: LEVETIRACETAM 500 MG in IV NORMAL SALINE 100ML 100 ML IV SCH (17:59)
[2016-12-19] MEDS: FAMOTIDINE 20 MG/2 ML VIAL IVP SCH (22:38)
[2016-12-20 03:00] VITALS: BP 119/78
[2016-12-20 05:37] LABS: BASO # 0.3 x10^3/uL (0.0-0.2); BASO % 1 % (0-3); EOS % 0 % (0-3); HEMATOCRIT 29.6 % (39.0-53.0); HEMOGLOBIN 9.7 g/dL (13.0-17.5); LYMPH # 2.2 x10^3/uL (1.0-4.8); LYMPH % 8 % (24-48); MEAN CORPUSCULAR HEMOGLOBIN 29 pg (25-35); MEAN CORPUSCULAR HGB CONC 33 g/dL (31-37); MEAN CORPUSCULAR VOLUME 90 fL (79-100); MONO % 15 % (0-9); NEUT % 76 % (31-73); PLATELET COUNT 485 x10^3/uL (140-400); RED CELL DISTRIBUTION WIDTH 14.4 % (11.5-14.5); WHITE BLOOD COUNT 27.7 x10^3/uL (4.0-11.0)
[2016-12-20 05:59] LABS: CALCIUM 9.4 mg/dL (8.5-10.1); CREATININE 3.8 mg/dL (0.7-1.3); GFR 20.6; POTASSIUM 3.7 mmol/L (3.5-5.1)
[2016-12-20 07:00] VITALS: BP 140/74
[2016-12-20] MEDS: IPRATROPIUM BROMIDE 0.5 MG/2.5 ML NEBU. NEB SCH ×4 (07:54→19:38)
[2016-12-20] MEDS: BUDESONIDE 0.5 MG/2 ML NEBU NEB SCH ×2 (07:55→19:38)
[2016-12-20] MEDS: ASPIRIN 81 MG TAB.CHEW PO SCH (08:00)
--- NOTE | 2016-12-20 08:59 | PDOC ---
Infectious Disease Note Subjective Subjective Feeling well. Wants water or orange juice. No N/V/D and "seizure activity" better Family present. Very supportive. ROS ROS GEN: Denies fevers, chills, sweats HEENT: Denies blurred vision, sore throat CV: Denies chest pain RESP: Denies shortness of air, cough GI: Denies n/v/d NEURO: Denies confusion, dizziness MSK: Denies weakness, joint pain/swelling Vital Sign Vital Signs Vital Signs Date Time Temp Pulse Resp B/P Pulse Ox O2 Delivery O2 Flow Rate FiO2 12/20/16 07:56 Nasal Cannula 8.0 12/20/16 07:00 98.1 81 17 140/74 99 98.1 Physical Exam PHYSICAL EXAM GENERAL: NAD, coop. looks well HEENT: PERRL, Oc/OP - clear LUNGS: Clear. HEART: S1S2, no gallop, no murmur. ABD: Mildly distended, BS present, soft, NT : No foleyy EXT: No C/ C? trace edema TEAM MANAGER: Alert and oriented SKIN: No rash RUE PICC. (12/09). clean. [facility] HD cath clean Labs Lab Laboratory Tests Test 12/20/16 05:25 White Blood Count 27.7x10^3/uL (4.0-11.0) Red Blood Count 3.30x10^6/uL (4.30-5.70) Hemoglobin 9.7g/dL (13.0-17.5) Hematocrit 29.6% (39.0-53.0) Mean Corpuscular Volume 90fL (79-100) Mean Corpuscular Hemoglobin 29pg (25-35) Mean Corpuscular Hemoglobin Concent 33g/dL (31-37) Red Cell Distribution Width 14.4% (11.5-14.5) Platelet Count 485x10^3/uL (140-400) Neutrophils (%) (Auto) 76% (31-73) Lymphocytes (%) (Auto) 8% (24-48) Monocytes (%) (Auto) 15% (0-9) Eosinophils (%) (Auto) 0% (0-3) Basophils (%) (Auto) 1% (0-3) Neutrophils # (Auto) 21.0x10^3uL (1.8-7.7) Lymphocytes # (Auto) 2.2x10^3/uL (1.0-4.8) Monocytes # (Auto) 4.1x10^3/uL (0.0-1.1) Eosinophils # (Auto) 0.1x10^3/uL (0.0-0.7) Basophils # (Auto) 0.3x10^3/uL (0.0-0.2) Erythrocyte Sedimentation Rate 132 (0-15) Sodium Level 144mmol/L (136-145) Potassium Level 3.7mmol/L (3.5-5.1) Chloride Level 103mmol/L (98-107) Carbon Dioxide Level 24mmol/L (21-32) Anion Gap 17 (6-14) Blood Urea Nitrogen 30mg/dL (8-26) Creatinine 3.8mg/dL (0.7-1.3) Estimated GFR (Cockcroft-Gault) 20.6 Glucose Level 88mg/dL (70-99) Calcium Level 9.4mg/dL (8.5-10.1) Objective Assessment ? New seizure Leukocytosis - no evidence of steroid. trending started on abx. ? reactive ? seizure and concentration. Clinically improving and no fever. Sed rate up Sepsis with lactic acidosis. POA - resolved Anemia Fever - resolved Pneumonia - S/p Bronch 12/12 - GPC on gram stain. Cult neg so far - fungus -Influenza screen neg -Strep antigen & legionella Ag neg Acute encephalopathy Acute respiratory failure s/p intubation - resolved s/p PEA cardiopulmonary arrest - S/p Cath 12/12 -TTE EF 30-35%. -No veg noted Hypotension on vasopressor support x 2. Now off ASHLEY - Renal following - worse Polysubstance abuse Diarrhea. c. diff neg. stool cx neg Plan Plan of Care Discontinued Zosyn/Zyvox (12/18). Check procalcitonin this am Await swallow eval. May need CT Chest/abd/pel with elevated WBC but await swallow so can at least try to give po Contrast Monitor labs/temp Supportive care D/w family LILIANA SEVERINO MD Dec 20, 2016 08:59
--- NOTE | 2016-12-20 08:59 | RAD ---
Indication: CHF. Time of exam 0827 hours. Comparison is made with prior chest from one day earlier. The right upper extremity PICC line and dialysis line on the right remain in place. The heart size is stable. Bilateral infiltrates continue to show mild improvement and partial clearing when compared with prior studies. Mild infiltrate remains. There is no effusion. No pneumothorax is detected. Impression: Continued partial clearing of bilateral pulmonary infiltrates when compared with exam one day earlier.
[2016-12-20] MEDS: HEPARIN PF for SUB-Q USE 5,000 UNIT/0.5 ML VIAL. SQ SCH ×2 (09:00→21:26)
[2016-12-20] MEDS: LEVETIRACETAM 500 MG in IV NORMAL SALINE 100ML 100 ML IV SCH ×2 (09:15→21:16)
[2016-12-20 10:52] VITALS: BP 135/75
--- NOTE | 2016-12-20 10:52 | PDOC ---
Renal-Progress Notes Subjective Notes Notes WANTS TO DRINK AND EAT History of Present Illness Hx of present illness BETTER Vitals Vitals Vital Signs Date Time Temp Pulse Resp B/P Pulse Ox O2 Delivery O2 Flow Rate FiO2 12/20/16 07:56 Nasal Cannula 8.0 12/20/16 07:00 98.1 81 17 140/74 99 98.1 Weight Weight [ ] I.O. Intake and Output Intake and Output 12/20/16 07:00 Intake Total 0 ml Output Total 1700 ml Balance -1700 ml Intake Oral 0 ml Output Urine Total 1700 ml Labs Labs Laboratory Tests Test 12/20/16 05:25 White Blood Count 27.7x10^3/uL (4.0-11.0) Red Blood Count 3.30x10^6/uL (4.30-5.70) Hemoglobin 9.7g/dL (13.0-17.5) Hematocrit 29.6% (39.0-53.0) Mean Corpuscular Volume 90fL (79-100) Mean Corpuscular Hemoglobin 29pg (25-35) Mean Corpuscular Hemoglobin Concent 33g/dL (31-37) Red Cell Distribution Width 14.4% (11.5-14.5) Platelet Count 485x10^3/uL (140-400) Neutrophils (%) (Auto) 76% (31-73) Lymphocytes (%) (Auto) 8% (24-48) Monocytes (%) (Auto) 15% (0-9) Eosinophils (%) (Auto) 0% (0-3) Basophils (%) (Auto) 1% (0-3) Neutrophils # (Auto) 21.0x10^3uL (1.8-7.7) Lymphocytes # (Auto) 2.2x10^3/uL (1.0-4.8) Monocytes # (Auto) 4.1x10^3/uL (0.0-1.1) Eosinophils # (Auto) 0.1x10^3/uL (0.0-0.7) Basophils # (Auto) 0.3x10^3/uL (0.0-0.2) Erythrocyte Sedimentation Rate 132 (0-15) Sodium Level 144mmol/L (136-145) Potassium Level 3.7mmol/L (3.5-5.1) Chloride Level 103mmol/L (98-107) Carbon Dioxide Level 24mmol/L (21-32) Anion Gap 17 (6-14) Blood Urea Nitrogen 30mg/dL (8-26) Creatinine 3.8mg/dL (0.7-1.3) Estimated GFR (Cockcroft-Gault) 20.6 Glucose Level 88mg/dL (70-99) Calcium Level 9.4mg/dL (8.5-10.1) Procalcitonin 2.17ng/mL (0.00-0.10) Micro Micro Microbiology 12/07/16 Blood Culture - Final, Complete NO GROWTH AFTER 5 DAYS 12/07/16 Stool Culture - Final, Complete 12/07/16 Stool Culture Result 1 (NEFTALI) - Final, Complete 12/07/16 Campylobacter Antigen Assay - Final, Complete 12/07/16 Campylobactor Result 1 - Final, Complete 12/07/16 Shiga Toxin Test - Final, Complete 12/12/16 AFB Specimen Processing Tissue - Final, Resulted 12/12/16 Acid Fast Bacilli Culture, Resulted Pending 12/12/16 Gram Stain - Final, Resulted 12/12/16 Fungal Culture - Preliminary, Resulted 12/12/16 Fungal Culture Result 1 - Preliminary, Resulted 12/12/16 Urine Culture - Final, Complete 12/12/16 Urine Culture Result 1 (NEFTALI) - Final, Complete Review of Systems Constitutional: yes: alert, oriented, weakness Ears/Nose/Throat: Yes: no symptom reported Eyes: Yes: no symptom reported Pulmonary: Yes no symptom reported Cardiovascular: Yes no symptom reported Gastrointestional: Yes: no symptom reported Genitourinary: Yes: no symptom reported Musculoskeletal: Yes: muscle atrophy, muscle stiffness Physical Exam General Appearance: no apparent distress Skin: warm Respiratory: decreased breath sounds Heart: S1S2, RRR Abdomen: soft, bowel sounds present Genitourinary: bladder flat Neurology: alert, oriented, follow commands, other Assessment Assessment IMP ASHLEY-NON OLIGURIC ANEMIA LEUCOCYTOSIS PNEUMONIA SEIZURE PLAN CONT ANTIBIOTICS HD TOMORROW DEPENDING ON LABS START PPN SWALLOW EVAL WILL FOLLOW BLUE RICHARDSON MD Dec 20, 2016 10:52
[2016-12-20] MEDS: AA 3%/ELECTROLYTE-TPN SOLN/GLY 1,000 ML IV SCH (11:45)
--- NOTE | 2016-12-20 12:12 | PDOC ---
PULMONARY PROGRESS NOTES Subjective no soa fully awake Vitals Vital Signs Date Time Temp Pulse Resp B/P Pulse Ox O2 Delivery O2 Flow Rate FiO2 12/20/16 11:54 100 Nasal Cannula 8.0 12/20/16 10:52 98.1 82 18 135/75 98.1 Comments ros as mentioned as above discussed w rn, off sedation agitated. ROS: No Nausea, No Chest Pain, No Abdominal Pain General: Alert, No acute distress HEENT: Other (nc at perrl, orally intubated) Lungs: Clear Cardiovascular: S1, S2 Abdomen: Soft, Non-tender, Other (no mass) Neuro Exam: Alert Extremities: No Edema Skin: Warm, Dry, No Rashes Labs Laboratory Tests Test 12/19/16 05:53 12/19/16 06:00 12/19/16 06:06 12/19/16 07:24 Glucose (Fingerstick) 73mg/dL (70-99) White Blood Count 21.1x10^3/uL (4.0-11.0) Red Blood Count 3.29x10^6/uL (4.30-5.70) Hemoglobin 9.6g/dL (13.0-17.5) Hematocrit 30.1% (39.0-53.0) Mean Corpuscular Volume 91fL (79-100) Mean Corpuscular Hemoglobin 29pg (25-35) Mean Corpuscular Hemoglobin Concent 32g/dL (31-37) Red Cell Distribution Width 14.2% (11.5-14.5) Platelet Count 491x10^3/uL (140-400) Neutrophils (%) (Auto) 74% (31-73) Lymphocytes (%) (Auto) 9% (24-48) Monocytes (%) (Auto) 16% (0-9) Eosinophils (%) (Auto) 0% (0-3) Basophils (%) (Auto) 1% (0-3) Neutrophils # (Auto) 15.6x10^3uL (1.8-7.7) Lymphocytes # (Auto) 2.0x10^3/uL (1.0-4.8) Monocytes # (Auto) 3.4x10^3/uL (0.0-1.1) Eosinophils # (Auto) 0.0x10^3/uL (0.0-0.7) Basophils # (Auto) 0.2x10^3/uL (0.0-0.2) Sodium Level 149mmol/L (136-145) Potassium Level 3.2mmol/L (3.5-5.1) Chloride Level 107mmol/L (98-107) Carbon Dioxide Level 21mmol/L (21-32) Anion Gap 21 (6-14) Blood Urea Nitrogen 21mg/dL (8-26) Creatinine 2.5mg/dL (0.7-1.3) Estimated GFR (Cockcroft-Gault) 33.4 Glucose Level 122mg/dL (70-99) Calcium Level 9.2mg/dL (8.5-10.1) Thyroid Stimulating Hormone (TSH) 4.685uIU/mL (0.358-3.74) O2 Saturation 91% (92-99) Arterial Blood pH 7.38 (7.35-7.45) Arterial Blood pCO2 at Patient Temp 31mmHg (35-46) Arterial Blood pO2 at Patient Temp 71mmHg (75-108) Arterial Blood HCO3 18mmol/L (21-28) Arterial Blood Base Excess -6mmol/L (-3-3) FiO2 50 Urine Opiates Screen Neg (NEG) Urine Methadone Screen Neg (NEG) Urine Barbiturates Neg (NEG) Urine Phencyclidine Screen Neg (NEG) Urine Amphetamine/Methamphetamine Neg (NEG) Urine Benzodiazepines Screen Pos (NEG) Urine Cocaine Screen Neg (NEG) Urine Cannabinoids Screen Neg (NEG) Urine Ethyl Alcohol Neg (NEG) Test 12/20/16 05:25 White Blood Count 27.7x10^3/uL (4.0-11.0) Red Blood Count 3.30x10^6/uL (4.30-5.70) Hemoglobin 9.7g/dL (13.0-17.5) Hematocrit 29.6% (39.0-53.0) Mean Corpuscular Volume 90fL (79-100) Mean Corpuscular Hemoglobin 29pg (25-35) Mean Corpuscular Hemoglobin Concent 33g/dL (31-37) Red Cell Distribution Width 14.4% (11.5-14.5) Platelet Count 485x10^3/uL (140-400) Neutrophils (%) (Auto) 76% (31-73) Lymphocytes (%) (Auto) 8% (24-48) Monocytes (%) (Auto) 15% (0-9) Eosinophils (%) (Auto) 0% (0-3) Basophils (%) (Auto) 1% (0-3) Neutrophils # (Auto) 21.0x10^3uL (1.8-7.7) Lymphocytes # (Auto) 2.2x10^3/uL (1.0-4.8) Monocytes # (Auto) 4.1x10^3/uL (0.0-1.1) Eosinophils # (Auto) 0.1x10^3/uL (0.0-0.7) Basophils # (Auto) 0.3x10^3/uL (0.0-0.2) Erythrocyte Sedimentation Rate 132 (0-15) Sodium Level 144mmol/L (136-145) Potassium Level 3.7mmol/L (3.5-5.1) Chloride Level 103mmol/L (98-107) Carbon Dioxide Level 24mmol/L (21-32) Anion Gap 17 (6-14) Blood Urea Nitrogen 30mg/dL (8-26) Creatinine 3.8mg/dL (0.7-1.3) Estimated GFR (Cockcroft-Gault) 20.6 Glucose Level 88mg/dL (70-99) Calcium Level 9.4mg/dL (8.5-10.1) Procalcitonin 2.17ng/mL (0.00-0.10) Laboratory Tests Test 12/20/16 05:25 White Blood Count 27.7x10^3/uL (4.0-11.0) Red Blood Count 3.30x10^6/uL (4.30-5.70) Hemoglobin 9.7g/dL (13.0-17.5) Hematocrit 29.6% (39.0-53.0) Mean Corpuscular Volume 90fL (79-100) Mean Corpuscular Hemoglobin 29pg (25-35) Mean Corpuscular Hemoglobin Concent 33g/dL (31-37) Red Cell Distribution Width 14.4% (11.5-14.5) Platelet Count 485x10^3/uL (140-400) Neutrophils (%) (Auto) 76% (31-73) Lymphocytes (%) (Auto) 8% (24-48) Monocytes (%) (Auto) 15% (0-9) Eosinophils (%) (Auto) 0% (0-3) Basophils (%) (Auto) 1% (0-3) Neutrophils # (Auto) 21.0x10^3uL (1.8-7.7) Lymphocytes # (Auto) 2.2x10^3/uL (1.0-4.8) Monocytes # (Auto) 4.1x10^3/uL (0.0-1.1) Eosinophils # (Auto) 0.1x10^3/uL (0.0-0.7) Basophils # (Auto) 0.3x10^3/uL (0.0-0.2) Erythrocyte Sedimentation Rate 132 (0-15) Sodium Level 144mmol/L (136-145) Potassium Level 3.7mmol/L (3.5-5.1) Chloride Level 103mmol/L (98-107) Carbon Dioxide Level 24mmol/L (21-32) Anion Gap 17 (6-14) Blood Urea Nitrogen 30mg/dL (8-26) Creatinine 3.8mg/dL (0.7-1.3) Estimated GFR (Cockcroft-Gault) 20.6 Glucose Level 88mg/dL (70-99) Calcium Level 9.4mg/dL (8.5-10.1) Procalcitonin 2.17ng/mL (0.00-0.10) Medications Active Scripts Medications Dose Route/Sig Days Date Category Percocet 5-325 Mg Tablet (Oxycodone/Acetaminophen) 1 Each Tablet 1-2 Tab PO Q4HRS 05/25/16 Reported Ultram (Tramadol Hcl) 50 Mg Tablet 50 Mg PO Q6H PRN 05/22/16 Rx Robaxin (Methocarbamol) 500 Mg Tablet 500 Mg PO QID 05/22/16 Rx Comments cxr 12/19 increase bilateral infiltrates Impression . 1. Acute hypoxemic respiratory failure, multifactorial in etiology.(septic shock, CHF, Metabolic acidosis, Renal failure,Possible pneumonia) 2. Extubated 12/17/ increase hypoxia early am due to seizure? aspiration/ increase CHF 3. CMP (EF 30%)/ cath findings c/w CHF 4. Septic shock POA. resolved 5. Acute kidney injury - currently on HD 6. Smoker. 7. History of drug abuse. 8. Status post cardiopulmonary arrest. 9. Hypotension.off pressors 10.Metabolic acidosis - resolved 11. s/ p cath the Right Atrial Pressure is 20 mmHg. The Right Ventricular Pressure is 50/30 mmHg. The Pulmonary Artery Pressure is 50/29 mmHg. The Pulmonary Catheter Wedge Pressure is 25 mmHg. LVEDP 30. This is c/w ongoing CHF 12. Leukocytosis, cxr improving. f/u ID recommendations Plan . 1. Continue nasal canula 2. brain MRI result/ neg for CVA 3. Bronchodilator, 4. s/p Bronch , severe tracheitis, cultures neg 5. ID recommendations regarding increasing WBC 6. speech eval/ PPN 7. Pepcid and heparin for stress ulcer and DVT prophylaxis. 8. Urine drug screen, pos.for cocaine 10. Follow Cardiology and nephrology recommendations. 11. HD/ UF to continue per nephrology 12. CXR improving CHF USZIE MCCRAY MD Dec 20, 2016 12:12
--- NOTE | 2016-12-20 12:35 | PDOC ---
AYAKA BUTLER [employer] 12/20/16 1235: CARDIO Progress Notes Date and Time Date of Service 12/20/16 Time of Evaluation 1215 Subjective Subjective: No Chest Pain, No shortness of breath, Other (wanting to eat; trying to order meal.) Comments: pulled out PICC overnight Vitals Vitals Vital Signs Date Time Temp Pulse Resp B/P Pulse Ox O2 Delivery O2 Flow Rate FiO2 12/20/16 11:54 100 Nasal Cannula 8.0 12/20/16 10:52 98.1 82 18 135/75 98.1 Weight Weight [ ] Input and Output Intake and Output Intake and Output 12/20/16 07:00 Intake Total 0 ml Output Total 1700 ml Balance -1700 ml Intake Oral 0 ml Output Urine Total 1700 ml Laboratory Labs Laboratory Tests Test 12/20/16 05:25 White Blood Count 27.7x10^3/uL (4.0-11.0) Red Blood Count 3.30x10^6/uL (4.30-5.70) Hemoglobin 9.7g/dL (13.0-17.5) Hematocrit 29.6% (39.0-53.0) Mean Corpuscular Volume 90fL (79-100) Mean Corpuscular Hemoglobin 29pg (25-35) Mean Corpuscular Hemoglobin Concent 33g/dL (31-37) Red Cell Distribution Width 14.4% (11.5-14.5) Platelet Count 485x10^3/uL (140-400) Neutrophils (%) (Auto) 76% (31-73) Lymphocytes (%) (Auto) 8% (24-48) Monocytes (%) (Auto) 15% (0-9) Eosinophils (%) (Auto) 0% (0-3) Basophils (%) (Auto) 1% (0-3) Neutrophils # (Auto) 21.0x10^3uL (1.8-7.7) Lymphocytes # (Auto) 2.2x10^3/uL (1.0-4.8) Monocytes # (Auto) 4.1x10^3/uL (0.0-1.1) Eosinophils # (Auto) 0.1x10^3/uL (0.0-0.7) Basophils # (Auto) 0.3x10^3/uL (0.0-0.2) Erythrocyte Sedimentation Rate 132 (0-15) Sodium Level 144mmol/L (136-145) Potassium Level 3.7mmol/L (3.5-5.1) Chloride Level 103mmol/L (98-107) Carbon Dioxide Level 24mmol/L (21-32) Anion Gap 17 (6-14) Blood Urea Nitrogen 30mg/dL (8-26) Creatinine 3.8mg/dL (0.7-1.3) Estimated GFR (Cockcroft-Gault) 20.6 Glucose Level 88mg/dL (70-99) Calcium Level 9.4mg/dL (8.5-10.1) Procalcitonin 2.17ng/mL (0.00-0.10) Microbiology Micro Microbiology 12/07/16 Blood Culture - Final, Complete NO GROWTH AFTER 5 DAYS 12/07/16 Stool Culture - Final, Complete 12/07/16 Stool Culture Result 1 (NEFTALI) - Final, Complete 12/07/16 Campylobacter Antigen Assay - Final, Complete 12/07/16 Campylobactor Result 1 - Final, Complete 12/07/16 Shiga Toxin Test - Final, Complete 12/12/16 AFB Specimen Processing Tissue - Final, Resulted 12/12/16 Acid Fast Bacilli Culture, Resulted Pending 12/12/16 Gram Stain - Final, Resulted 12/12/16 Fungal Culture - Preliminary, Resulted 12/12/16 Fungal Culture Result 1 - Preliminary, Resulted 12/12/16 Urine Culture - Final, Complete 12/12/16 Urine Culture Result 1 (NEFTALI) - Final, Complete Review of Systems Constitutional: yes: alert, oriented, weakness Ears/Nose/Throat: Yes: no symptom reported Eyes: Yes: no symptom reported Pulmonary: Yes no symptom reported Cardiovascular: Yes no symptom reported Gastrointestional: Yes: no symptom reported Genitourinary: Yes: no symptom reported Musculoskeletal: Yes: muscle atrophy, muscle stiffness Physical Exam HEENT: Neck Supple W Full Motion Chest: Symmetric LUNGS: Other (bibasilar crackles) Heart: S1S2, RRR, other (tele: SR) Abdomen: Soft N/T Extremities: 2+ Dorsalis Pedis, No Edema Neurology: alert, oriented, other (agitated) Assessment Assessment 1. Acute respiratory failure; extubated 12/17 2. Acute systolic heart failure 3. S/p PEA arrest 4. Non-ischemic cardiomyopathy; LVEF 30-35% 5. HTN 6. ASHLEY; now on HD 7. Anemia 8. Polysubstance abuse 9. Dysphagia 10. Seizures 11. Leukocytosis Recommendations CXR improved, appears better compensated cardiovascularly Continue fluid offloading in HD per nephrology. Remains NPO as high risk for aspiration; PPN ongoing. ST following. Video swallow study later today if BP allows, plan to start Coreg, hydralazine, and Imdur when able to take PO. Consider KENDALL when okay with nephrology. Continue supportive care. FARIDA WRIGHT MD 12/20/16 1831: CARDIO Progress Notes Plan Plan Patient seen and examined. Agree with above nurse practitioner note. No acute events overnight. Continues to be nothing by mouth. No significant changes on cardiac examination. Continue supportive care. Oral medications when able to tolerate by mouth. We'll follow along peripherally. AYAKA BUTLER APRN Dec 20, 2016 12:35 FARIDA WRIGHT MD Dec 20, 2016 18:31
[2016-12-20] MEDS ORDERED: BARIUM SULFATE 40% PO ONE (14:00)
--- NOTE | 2016-12-20 14:11 | PDOC ---
PROGRESS NOTES Chief Complaint Chief Complaint Encephalopathy, delirium, dysphagia Chief Complaint: - Weakness, dehydration - Cardiac arrest PEA (12/08); TTE EF of 30-35% - Acute respiratory failure, likely multifactorial; On mechanical Ventilation ( 12/08)- possible aspiration pneumonia. Possible ARDS vs pulmonary edema vs PNA - ASHLEY - vasomotor - on admit, Septic shock, multiorgan failure, out of ICU, better, - Cardiomyopathy - Metabolic acidosis - Polysubstance abuse, cocaine cardiomyopathy - Elevated troponin - Hypocalcemia. History of Present Illness History of Present Illness pt confused, wanting to go out to eat, upset about NPO video swallow today discussed with Pt and patient's - she is in room, and concerned that his mental status is not improving more Vitals Vitals Vital Signs Date Time Temp Pulse Resp B/P Pulse Ox O2 Delivery O2 Flow Rate FiO2 12/20/16 11:54 100 Nasal Cannula 8.0 12/20/16 10:52 98.1 82 18 135/75 98.1 Physical Exam Physical Exam Pupils pinpoint, reactive to light General: Alert, Cooperative, No acute distress, Other (follows commands most of the time, ) Heart: No murmurs, Other (HR reg) Lungs: Clear Abdomen: Normal bowel sounds, Soft Extremities: No clubbing, No cyanosis Skin: No rashes, No significant lesion, Other ( ) Labs LABS Laboratory Tests Test 12/20/16 05:25 White Blood Count 27.7x10^3/uL (4.0-11.0) Red Blood Count 3.30x10^6/uL (4.30-5.70) Hemoglobin 9.7g/dL (13.0-17.5) Hematocrit 29.6% (39.0-53.0) Mean Corpuscular Volume 90fL (79-100) Mean Corpuscular Hemoglobin 29pg (25-35) Mean Corpuscular Hemoglobin Concent 33g/dL (31-37) Red Cell Distribution Width 14.4% (11.5-14.5) Platelet Count 485x10^3/uL (140-400) Neutrophils (%) (Auto) 76% (31-73) Lymphocytes (%) (Auto) 8% (24-48) Monocytes (%) (Auto) 15% (0-9) Eosinophils (%) (Auto) 0% (0-3) Basophils (%) (Auto) 1% (0-3) Neutrophils # (Auto) 21.0x10^3uL (1.8-7.7) Lymphocytes # (Auto) 2.2x10^3/uL (1.0-4.8) Monocytes # (Auto) 4.1x10^3/uL (0.0-1.1) Eosinophils # (Auto) 0.1x10^3/uL (0.0-0.7) Basophils # (Auto) 0.3x10^3/uL (0.0-0.2) Erythrocyte Sedimentation Rate 132 (0-15) Sodium Level 144mmol/L (136-145) Potassium Level 3.7mmol/L (3.5-5.1) Chloride Level 103mmol/L (98-107) Carbon Dioxide Level 24mmol/L (21-32) Anion Gap 17 (6-14) Blood Urea Nitrogen 30mg/dL (8-26) Creatinine 3.8mg/dL (0.7-1.3) Estimated GFR (Cockcroft-Gault) 20.6 Glucose Level 88mg/dL (70-99) Calcium Level 9.4mg/dL (8.5-10.1) Magnesium Level 1.8mg/dL (1.8-2.4) Procalcitonin 2.17ng/mL (0.00-0.10) Review of Systems Review of Systems hungry and thirsty, wants to get out of bed to walk around fall risk, weakness Assessment and Plan Assessmemt and Plan video swallow today PRN anxiety meds Problems Medical Problems: (1) ARF (acute renal failure) Status: Acute (2) CAP (community acquired pneumonia) Status: Acute Problems: Comment Review of Relevant I have reviewed the following items immanuel (where applicable) has been applied. Labs Laboratory Tests Test 12/19/16 05:53 12/19/16 06:00 12/19/16 06:06 12/19/16 07:24 Glucose (Fingerstick) 73mg/dL (70-99) White Blood Count 21.1x10^3/uL (4.0-11.0) Red Blood Count 3.29x10^6/uL (4.30-5.70) Hemoglobin 9.6g/dL (13.0-17.5) Hematocrit 30.1% (39.0-53.0) Mean Corpuscular Volume 91fL (79-100) Mean Corpuscular Hemoglobin 29pg (25-35) Mean Corpuscular Hemoglobin Concent 32g/dL (31-37) Red Cell Distribution Width 14.2% (11.5-14.5) Platelet Count 491x10^3/uL (140-400) Neutrophils (%) (Auto) 74% (31-73) Lymphocytes (%) (Auto) 9% (24-48) Monocytes (%) (Auto) 16% (0-9) Eosinophils (%) (Auto) 0% (0-3) Basophils (%) (Auto) 1% (0-3) Neutrophils # (Auto) 15.6x10^3uL (1.8-7.7) Lymphocytes # (Auto) 2.0x10^3/uL (1.0-4.8) Monocytes # (Auto) 3.4x10^3/uL (0.0-1.1) Eosinophils # (Auto) 0.0x10^3/uL (0.0-0.7) Basophils # (Auto) 0.2x10^3/uL (0.0-0.2) Sodium Level 149mmol/L (136-145) Potassium Level 3.2mmol/L (3.5-5.1) Chloride Level 107mmol/L (98-107) Carbon Dioxide Level 21mmol/L (21-32) Anion Gap 21 (6-14) Blood Urea Nitrogen 21mg/dL (8-26) Creatinine 2.5mg/dL (0.7-1.3) Estimated GFR (Cockcroft-Gault) 33.4 Glucose Level 122mg/dL (70-99) Calcium Level 9.2mg/dL (8.5-10.1) Thyroid Stimulating Hormone (TSH) 4.685uIU/mL (0.358-3.74) O2 Saturation 91% (92-99) Arterial Blood pH 7.38 (7.35-7.45) Arterial Blood pCO2 at Patient Temp 31mmHg (35-46) Arterial Blood pO2 at Patient Temp 71mmHg (75-108) Arterial Blood HCO3 18mmol/L (21-28) Arterial Blood Base Excess -6mmol/L (-3-3) FiO2 50 Urine Opiates Screen Neg (NEG) Urine Methadone Screen Neg (NEG) Urine Barbiturates Neg (NEG) Urine Phencyclidine Screen Neg (NEG) Urine Amphetamine/Methamphetamine Neg (NEG) Urine Benzodiazepines Screen Pos (NEG) Urine Cocaine Screen Neg (NEG) Urine Cannabinoids Screen Neg (NEG) Urine Ethyl Alcohol Neg (NEG) Test 12/20/16 05:25 White Blood Count 27.7x10^3/uL (4.0-11.0) Red Blood Count 3.30x10^6/uL (4.30-5.70) Hemoglobin 9.7g/dL (13.0-17.5) Hematocrit 29.6% (39.0-53.0) Mean Corpuscular Volume 90fL (79-100) Mean Corpuscular Hemoglobin 29pg (25-35) Mean Corpuscular Hemoglobin Concent 33g/dL (31-37) Red Cell Distribution Width 14.4% (11.5-14.5) Platelet Count 485x10^3/uL (140-400) Neutrophils (%) (Auto) 76% (31-73) Lymphocytes (%) (Auto) 8% (24-48) Monocytes (%) (Auto) 15% (0-9) Eosinophils (%) (Auto) 0% (0-3) Basophils (%) (Auto) 1% (0-3) Neutrophils # (Auto) 21.0x10^3uL (1.8-7.7) Lymphocytes # (Auto) 2.2x10^3/uL (1.0-4.8) Monocytes # (Auto) 4.1x10^3/uL (0.0-1.1) Eosinophils # (Auto) 0.1x10^3/uL (0.0-0.7) Basophils # (Auto) 0.3x10^3/uL (0.0-0.2) Erythrocyte Sedimentation Rate 132 (0-15) Sodium Level 144mmol/L (136-145) Potassium Level 3.7mmol/L (3.5-5.1) Chloride Level 103mmol/L (98-107) Carbon Dioxide Level 24mmol/L (21-32) Anion Gap 17 (6-14) Blood Urea Nitrogen 30mg/dL (8-26) Creatinine 3.8mg/dL (0.7-1.3) Estimated GFR (Cockcroft-Gault) 20.6 Glucose Level 88mg/dL (70-99) Calcium Level 9.4mg/dL (8.5-10.1) Magnesium Level 1.8mg/dL (1.8-2.4) Procalcitonin 2.17ng/mL (0.00-0.10) Laboratory Tests Test 12/20/16 05:25 White Blood Count 27.7x10^3/uL (4.0-11.0) Red Blood Count 3.30x10^6/uL (4.30-5.70) Hemoglobin 9.7g/dL (13.0-17.5) Hematocrit 29.6% (39.0-53.0) Mean Corpuscular Volume 90fL (79-100) Mean Corpuscular Hemoglobin 29pg (25-35) Mean Corpuscular Hemoglobin Concent 33g/dL (31-37) Red Cell Distribution Width 14.4% (11.5-14.5) Platelet Count 485x10^3/uL (140-400) Neutrophils (%) (Auto) 76% (31-73) Lymphocytes (%) (Auto) 8% (24-48) Monocytes (%) (Auto) 15% (0-9) Eosinophils (%) (Auto) 0% (0-3) Basophils (%) (Auto) 1% (0-3) Neutrophils # (Auto) 21.0x10^3uL (1.8-7.7) Lymphocytes # (Auto) 2.2x10^3/uL (1.0-4.8) Monocytes # (Auto) 4.1x10^3/uL (0.0-1.1) Eosinophils # (Auto) 0.1x10^3/uL (0.0-0.7) Basophils # (Auto) 0.3x10^3/uL (0.0-0.2) Erythrocyte Sedimentation Rate 132 (0-15) Sodium Level 144mmol/L (136-145) Potassium Level 3.7mmol/L (3.5-5.1) Chloride Level 103mmol/L (98-107) Carbon Dioxide Level 24mmol/L (21-32) Anion Gap 17 (6-14) Blood Urea Nitrogen 30mg/dL (8-26) Creatinine 3.8mg/dL (0.7-1.3) Estimated GFR (Cockcroft-Gault) 20.6 Glucose Level 88mg/dL (70-99) Calcium Level 9.4mg/dL (8.5-10.1) Magnesium Level 1.8mg/dL (1.8-2.4) Procalcitonin 2.17ng/mL (0.00-0.10) Microbiology 12/07/16 Blood Culture - Final, Complete NO GROWTH AFTER 5 DAYS 12/07/16 Stool Culture - Final, Complete 12/07/16 Stool Culture Result 1 (NEFTALI) - Final, Complete 12/07/16 Campylobacter Antigen Assay - Final, Complete 12/07/16 Campylobactor Result 1 - Final, Complete 12/07/16 Shiga Toxin Test - Final, Complete 12/12/16 AFB Specimen Processing Tissue - Final, Resulted 12/12/16 Acid Fast Bacilli Culture, Resulted Pending 12/12/16 Gram Stain - Final, Resulted 12/12/16 Fungal Culture - Preliminary, Resulted 12/12/16 Fungal Culture Result 1 - Preliminary, Resulted 12/12/16 Urine Culture - Final, Complete 12/12/16 Urine Culture Result 1 (NEFTALI) - Final, Complete Medications Current Medications Ketorolac Tromethamine 30 mg 30 mg 1X ONCE IV Last administered on 12/07/16 14:34; Start 12/07/16 at 14:30; Stop 12/07/16 at 14:31; Status DC Sodium Chloride 1,000 ml @ 1,000 mls/hr 1X ONCE IV Last administered on 14:34; Start 12/07/16 at 14:30; Stop 12/07/16 at 15:29; Status DC Ceftriaxone Sodium 1 gm/ Sodium Chloride 50 ml @ 100 mls/hr Q24H IV ; Start at 15:30; Stop 12/08/16 at 15:30; Status DC Azithromycin 250 ml @ 250 mls/hr 1X ONCE IV Last administered on 12/07/16 15 :48; Start 12/07/16 at 15:15; Stop 12/07/16 at 16:14; Status DC Sodium Chloride 1,000 ml @ 1,000 mls/hr 1X ONCE IV Last administered on 16:09; Start 12/07/16 at 15:15; Stop 12/07/16 at 16:14; Status DC Ceftriaxone Sodium 50 ml @ 100 mls/hr 1X ONCE IV Last administered on 15:29; Start 12/07/16 at 15:15; Stop 12/07/16 at 15:44; Status DC Sodium Chloride (Iv Sodium Chloride 0.9% 1000ml Bag) 1,000 ml @ 150 mls/hr 1X ONCE IV Last administered on 12/07/16 18:10; Start 12/07/16 at 15:15; Stop 11/11 at 21:54; Status DC Famotidine (Pepcid) 20 mg 1X ONCE IVP Last administered on 12/07/16 15:48; Start 12/07/16 at 15:45; Stop 12/07/16 at 15:46; Status DC Ondansetron HCl 4 mg 4 mg 1X ONCE IV Last administered on 12/07/16 16:09; Start 12/07/16 at 16:15; Stop 12/07/16 at 16:16; Status DC Sodium Chloride (Iv Sodium Chloride 0.9% 1000ml Bag) 1,000 ml @ 150 mls/hr Q6H40M IV Last administered on 12/08/16 06:38; Start 12/07/16 at 16:30; Stop 12/08/16 at 14:21; Status DC Ondansetron HCl (Zofran) 4 mg PRN Q6HRS PRN IV NAUSEA/VOMITING Last administered on 12/19/16 02:59; Start 12/07/16 at 16:30 Acetaminophen (Tylenol) 500 mg PRN Q6HRS PRN PO MILD PAIN / TEMP Last administered on 12/09/16 15:04; Start 12/07/16 at 16:30 Morphine Sulfate 2 mg PRN Q2HR PRN IV PAIN Last administered on 12/08/16 05:28 ; Start 12/07/16 at 16:30 Zolpidem Tartrate (Ambien) 5 mg PRN QHS PRN PO INSOMNIA Last administered on 01:06; Start 12/07/16 at 16:30; Stop 12/08/16 at 10:03; Status DC Methocarbamol (Robaxin) 500 mg QID PO Last administered on 12/07/16 21:19; Start 12/07/16 at 17:00; Stop 12/08/16 at 10:03; Status DC Oxycodone/ Acetaminophen (Percocet 5/325) 1 tab PRN Q4HRS PRN PO SEVERE PAIN; Start 12/07/16 at 16:30 Tramadol HCl (Ultram) 50 mg PRN Q6HRS PRN PO MODERATE PAIN Last administered on 12/07/16 17:11; Start 12/07/16 at 16:30 Nicotine (Nicoderm Cq 21mg) 1 patch PRN DAILY PRN TD SMOKING CESSATION; Start 12/07/16 at 16:30 Info (Do NOT chart on this placeholder) 1 each 1X ONCE MC ; Start 12/07/16 at 22:45; Stop 12/07/16 at 22:46; Status UNV Pneumococcal Polyvalent Vaccine (Do NOT chart on this placeholder) 1 each 1X ONCE MC ; Start 12/07/16 at 22:45; Stop 12/07/16 at 22:46; Status UNV Influenza Virus Vaccine Quadrival (Fluarix Quad [id number] Syringe) 0.5 ml ONCE ONCE VAX IM ; Start 12/08/16 at 09:00; Stop 12/08/16 at 09:01; Status DC Pneumococcal Polyvalent Vaccine (Pneumovax 23) 0.5 ml ONCE ONCE VAX IM ; Start 12/08/16 at 09:00; Stop 12/08/16 at 09:01; Status DC Labetalol HCl (Normodyne) 10 mg 1X ONCE IVP Last administered on 12/08/16 08: 56; Start 12/08/16 at 08:30; Stop 12/08/16 at 08:35; Status DC Alprazolam (Xanax) 0.5 mg 1X ONCE PO Last administered on 12/08/16 08:40; Start 12/08/16 at 08:45; Stop 12/08/16 at 08:46; Status DC Aspirin (Children'S Aspirin) 324 mg 1X ONCE PO Last administered on 12/08/16 13:44; Start 12/08/16 at 09:30; Stop 12/08/16 at 09:31; Status DC Aspirin (Jada Aspirin) 325 mg DAILYWBKFT PO ; Start 12/09/16 at 08:00; Stop at 08:00; Status DC Heparin Sodium (Porcine) 4000 unit 4,000 unit 1X ONCE IV ; Start 12/08/16 at 09 :30; Stop 12/08/16 at 14:21; Status DC Midazolam HCl 100 ml @ As Directed STK-MED ONCE IV ; Start 12/08/16 at 09:52; Stop 12/08/16 at 09:53; Status DC Propofol (Diprivan) 100 ml @ 0 mls/hr CONT PRN IV SEE I/O RECORD Last administered on 12/08/16 23:49; Start 12/08/16 at 10:00 Famotidine (Pepcid) 20 mg QHS IVP Last administered on 12/19/16 22:38; Start 12/08/16 at 21:00 Heparin Sodium (Porcine) 5000 unit 5,000 unit Q8HRS SQ ; Start 12/08/16 at 14:00 ; Stop 12/08/16 at 14:00; Status DC Norepinephrine Bitartrate 8 mg/ Sodium Chloride 258 ml @ 1.93 mls/hr CONT PRN IV SEE I/O RECORD; Start 12/08/16 at 10:15; Status Cancel Dopamine HCl/ Dextrose 250 ml @ As Directed STK-MED ONCE IV ; Start 12/08/16 at 10:07; Stop 12/08/16 at 10:08; Status DC Norepinephrine Bitartrate 8 mg/ Sodium Chloride 258 ml @ 0 mls/hr CONT PRN IV SEE I/O RECORD Last administered on 12/09/16 08:46; Start 12/08/16 at 10:15; Stop 12/09/16 at 11:47; Status DC Dopamine HCl/ Dextrose 250 ml @ 10.084 mls/ hr CONT PRN IV SEE I/O RECORD Last administered on 12/08/16 10:00; Start 12/08/16 at 10:15 Sodium Bicarbonate/ Sodium Chloride (Iv Sodium Chloride 0.45%) 1,050 ml @ 200 mls/hr Q5H15M IV Last administered on 12/09/16 05:11; Start 12/08/16 at 10:30 ; Stop 12/09/16 at 08:28; Status DC Phenylephrine HCl 1 mg STK-MED ONCE IV ; Start 12/08/16 at 10:25; Stop 12/08/16 at 10:26; Status DC Aspirin 300 mg 300 mg 1X ONCE LA ; Start 12/08/16 at 10:45; Stop 12/08/16 at 10 :46; Status DC Sodium Chloride 1,000 ml @ 1,000 mls/hr 1X ONCE IV Last administered on 10:00; Start 12/08/16 at 11:45; Stop 12/08/16 at 12:44; Status DC Sodium Chloride (Iv Sodium Chloride 0.9% 1000ml Bag) 1,000 ml @ 1,000 mls/hr 1X ONCE IV Last administered on 12/08/16 10:00; Start 12/08/16 at 11:45; Stop 12/08/16 at 12:44; Status DC Albuterol/ Ipratropium (Duoneb) 3 ml RTQID NEB Last administered on 12/08/16 19:44; Start 12/08/16 at 12:30; Stop 12/09/16 at 05:17; Status DC Budesonide 0.5 mg 0.5 mg RTBID NEB Last administered on 12/20/16 07:55; Start 12/08/16 at 12:30 Sodium Chloride 1,000 ml @ 1,000 mls/hr 1X ONCE IV Last administered on 11:00; Start 12/08/16 at 12:15; Stop 12/08/16 at 13:14; Status DC Sodium Chloride 1,000 ml @ 1,000 mls/hr 1X ONCE IV Last administered on 11:00; Start 12/08/16 at 12:15; Stop 12/08/16 at 13:14; Status DC Heparin Sodium/ Dextrose 500 ml @ 0 mls/hr CONT PRN IV SEE I/O RECORD Last administered on 12/09/16 13:11; Start 12/08/16 at 12:45; Stop 12/13/16 at 13:10 ; Status DC Heparin Sodium (Porcine) 1,350 unit PRN Q6HRS PRN IV FOR UFH LEVEL LESS THAN 0.2 Last administered on 12/09/16 05:47; Start 12/08/16 at 12:45; Stop at 13:10; Status DC Etomidate (Amidate) 20 mg STK-MED ONCE IV ; Start 12/08/16 at 13:00; Stop at 13:01; Status DC Succinylcholine Chloride 200 mg 200 mg STK-MED ONCE .ROUTE ; Start 12/08/16 at 13:00; Stop 12/08/16 at 13:01; Status DC Piperacillin Sod/ Tazobactam Sod 3.375 gm/Sodium Chloride 50 ml @ 100 mls/hr Q6HRS IV ; Start 12/08/16 at 18:00; Stop 12/08/16 at 18:00; Status DC Vancomycin HCl 1 gm/Sodium Chloride 250 ml @ 250 mls/hr 1X ONCE IV Last administered on 12/08/16 14:21; Start 12/08/16 at 14:00; Stop 12/08/16 at 14:59 ; Status DC Piperacillin Sod/ Tazobactam Sod 2.25 gm/Sodium Chloride 50 ml @ 100 mls/hr Q6HRS IV Last administered on 12/09/16 06:17; Start 12/08/16 at 14:00; Stop at 08:25; Status DC Midazolam HCl 100 ml @ 0 mls/hr CONT PRN IV SEE I/O RECORD Last administered on 12/17/16 04:53; Start 12/08/16 at 10:30 Fentanyl Citrate (Fentanyl 600 Mcg/30 ml 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 CUTTING MACHINE OPERATOR) 30 ml @ 0 mls/hr CONT PRN IV PROTOCOL Last administered on 12/17/16 04:54; Start 12/09/16 at 05:15 Fentanyl Citrate (Fentanyl 2ml Vial) 25 mcg PRN Q1HR PRN IV COMM; Start at 05:15 Fentanyl Citrate (Fentanyl 2ml Vial) 50 mcg PRN Q1HR PRN IV COMM Last administered on 12/18/16 21:54; Start 12/09/16 at 05:15 Ipratropium [place] (Atrovent) 0.5 mg RTQID NEB Last administered on 12/20/16 11:54; Start 12/09/16 at 08:00 Aspirin (Children'S Aspirin) 81 mg DAILYWBKFT PO Last administered on 08:37; Start 12/09/16 at 08:00 Chlorhexidine Gluconate 15 ml 15 ml BID MM Last administered on 12/18/16 21:49 ; Start 12/09/16 at 09:00; Stop 12/19/16 at 08:54; Status DC Sodium Bicarbonate 150 meq/Dextrose 1,150 ml @ 100 mls/hr [id number] IV Last administered on 12/10/16 09:34; Start 12/09/16 at 09:00; Stop 12/10/16 at 12:14 ; Status DC Piperacillin Sod/ Tazobactam Sod 3.375 gm/Sodium Chloride 50 ml @ 100 mls/hr Q6HRS IV Last administered on 12/11/16 06:01; Start 12/09/16 at 12:00; Stop at 07:47; Status DC Norepinephrine Bitartrate 16 mg/ Sodium Chloride 266 ml @ 0.99 mls/hr CONT PRN IV SEE I/O RECORD Last administered on 12/09/16 20:36; Start 12/09/16 at 12 :00 Doxycycline Hyclate/Dextrose 100 ml @ 50 mls/hr Q12HR IV Last administered on 12/13/16 20:50; Start 12/09/16 at 13:00; Stop 12/14/16 at 08:34; Status DC Atropine Sulfate 0.5 mg STK-MED ONCE .ROUTE ; Start 12/08/16 at 10:30; Stop at 13:18; Status DC Epinephrine HCl 3 mg STK-MED ONCE .ROUTE ; Start 12/08/16 at 10:30; Stop at 13:18; Status DC Calcium Gluconate 1000 mg 1,000 mg 1X ONCE IVP ; Start 12/10/16 at 10:00; Stop 12/10/16 at 10:01; Status UNV Magnesium Sulfate/ Dextrose 50 ml @ 25 mls/hr 1X ONCE IV Last administered on 12/10/16 11:40; Start 12/10/16 at 12:00; Stop 12/10/16 at 13:59; Status DC Calcium Gluconate 1000 mg/Sodium Chloride 110 ml @ 220 mls/hr 1X ONCE IV Last administered on 12/10/16 11:36; Start 12/10/16 at 12:00; Stop 12/10/16 at 12:29; Status DC Magnesium Sulfate/ Dextrose 50 ml @ 25 mls/hr PRN DAILY PRN IV for Mag < 1.7 on am labs; Start 12/10/16 at 12:15; Stop 12/13/16 at 09:57; Status DC Amino Acids/ Glycerin/ Electrolytes 1,000 ml @ 80 mls/hr [id number] IV ; Start at 12:30; Stop 12/10/16 at 12:30; Status DC Albumin Human (Albuminar) 100 ml @ 100 mls/hr TID IV ; Start 12/10/16 at 14:00 ; Stop 12/10/16 at 14:00; Status DC Calcium Gluconate 2000 mg 2,000 mg TID IVP ; Start 12/10/16 at 14:00; Stop 12/10 at 14:00; Status DC Piperacillin Sod/ Tazobactam Sod 2.25 gm/Sodium Chloride 50 ml @ 100 mls/hr Q6HRS IV Last administered on 12/18/16 05:58; Start 12/11/16 at 12:00; Stop at 07:17; Status DC Linezolid (Zyvox Premix) 300 ml @ 300 mls/hr Q12HR IV Last administered on 21:24; Start 12/11/16 at 09:00; Stop 12/18/16 at 07:17; Status DC Info 1 each 1 each PRN DAILY PRN MC SEE COMMENTS Last administered on 08:21; Start 12/11/16 at 08:15; Stop 12/13/16 at 13:13; Status DC Potassium Phosphate/Sodium Chloride (Potassium Phosphate/Iv Sodium Chloride 0.9 % 100ml) 104.5333 ml @ 52.267 m... Q2H IV Last administered on 12/11/16 17:22 ; Start 12/11/16 at 09:00; Stop 12/11/16 at 14:59; Status DC Furosemide 20 mg 20 mg 1X ONCE IVP Last administered on 12/11/16 11:10; Start 12/11/16 at 10:00; Stop 12/11/16 at 10:03; Status DC Dobutamine HCl/ Dextrose 250 ml @ 0 mls/hr CONT PRN IV SEE I/O RECORD Last administered on 12/11/16 15:05; Start 12/11/16 at 14:45 Magnesium Sulfate/ Dextrose 50 ml @ 25 mls/hr PRN DAILY PRN IV for Mag < 1.7 on am labs; Start 12/12/16 at 08:45; Stop 12/13/16 at 09:57; Status DC Potassium Chloride 50 ml @ 50 mls/hr PRN Q6HRS PRN IV For K < 3.7; Start at 08:45; Stop 12/13/16 at 09:57; Status DC Potassium Chloride (KCl Premix 20meq) 50 ml @ 50 mls/hr PRN Q2HR PRN IV total of 40mEq for K < 3.5; Start 12/12/16 at 08:45; Stop 12/13/16 at 09:57; Status DC Acetylcysteine 1200 mg 1,200 mg BID PO Last administered on 12/13/16 20:50; Start 12/12/16 at 09:00; Stop 12/14/16 at 08:17; Status DC Potassium Chloride (KCl Premix 20meq) 50 ml @ 50 mls/hr Q1H IV Last administered on 12/12/16 13:16; Start 12/12/16 at 09:00; Stop 12/12/16 at 10:59 ; Status DC Lidocaine/Sodium Bicarbonate 20 ml 20 ml STK-MED ONCE IJ ; Start 12/12/16 at 12: 13; Stop 12/12/16 at 12:14; Status DC Heparin Sodium/ Sodium Chloride 500 ml @ As Directed STK-MED ONCE .ROUTE ; Start 12/12/16 at 12:14; Stop 12/12/16 at 12:15; Status DC Lidocaine/Sodium Bicarbonate (Buffered Lidocaine 1%) 3 ml 1X ONCE IJ Last administered on 12/12/16 13:08; Start 12/12/16 at 12:15; Stop 12/12/16 at 12:17 ; Status DC Heparin Sodium (Porcine) 2,500 unit 1X ONCE INT CAT Last administered on 13:08; Start 12/12/16 at 12:15; Stop 12/12/16 at 12:17; Status DC Heparin Sodium/ Sodium Chloride 60 unit 60 unit 1X ONCE IV Last administered on 12/12/16 12:15; Start 12/12/16 at 12:15; Stop 12/12/16 at 12:17; Status DC Heparin Sodium/ Sodium Chloride 1,500 ml @ As Directed STK-MED ONCE .ROUTE ; Start 12/12/16 at 15:03; Stop 12/12/16 at 15:04; Status DC Lidocaine HCl 20 ml STK-MED ONCE .ROUTE ; Start 12/12/16 at 15:03; Stop at 15:04; Status DC Iodixanol (Visipaque 320) 100 ml STK-MED ONCE .ROUTE ; Start 12/12/16 at 15:04; Stop 12/12/16 at 15:05; Status DC Heparin Sodium/ Sodium Chloride 1,000 unit 1X ONCE IART Last administered on t 15:41; Start 12/12/16 at 15:30; Stop 12/12/16 at 15:32; Status DC Iodixanol (Visipaque 320) 100 ml 1X ONCE IART Last administered on 12/12/16 15:41; Start 12/12/16 at 15:30; Stop 12/12/16 at 15:32; Status DC Lidocaine HCl 4 ml 4 ml 1X ONCE IJ Last administered on 12/12/16 15:41; Start 12/12/16 at 15:30; Stop 12/12/16 at 15:32; Status DC Potassium Chloride 50 ml @ 50 mls/hr 1X ONCE IV Last administered on 04:13; Start 12/13/16 at 04:15; Stop 12/13/16 at 05:14; Status DC Potassium Chloride 50 ml @ 50 mls/hr 1X ONCE IV Last administered on 03:13; Start 12/13/16 at 03:15; Stop 12/13/16 at 04:14; Status DC Potassium Chloride 50 ml @ 50 mls/hr Q1H IV ; Start 12/13/16 at 09:00; Stop at 09:00; Status DC Furosemide 100 mg/ Sodium Chloride 100 ml @ 0 mls/hr CONT PRN IV SEE I/O RECORD Last administered on 12/13/16t 11:43; Start 12/13/16 at 10:00; Stop 12/14 at 08:17; Status DC Magnesium Sulfate/ Dextrose 50 ml @ 25 mls/hr PRN DAILY PRN IV for Mag < 1.7 on am labs; Start 12/13/16 at 10:00 Potassium Chloride 50 ml @ 50 mls/hr PRN Q6HRS PRN IV For K < 3.7 Last administered on 12/15/16 01:08; Start 12/13/16 at 10:00 Potassium Chloride 50 ml @ 50 mls/hr PRN Q2HR PRN IV total of 40mEq for K < 3.5; Start 12/13/16 at 10:00 Potassium Phosphate 40 mmol/ Sodium Chloride 113.3333 ml @ 52.267 m... PRN 1X PRN IV SEE COMMENTS; Start 12/13/16 at 10:00; Stop 12/13/16 at 23:59; Status DC Sodium Chloride 1,000 ml @ 1,000 mls/hr Q1H PRN IV hypotension; Start 12/13/16 at 14:51; Stop 12/13/16 at 20:50; Status DC Sodium Chloride (Iv Sodium Chloride 0.9% 1000ml Bag) 1,000 ml @ 400 mls/hr Q2H30M PRN IV PATENCY; Start 12/13/16 at 14:51; Stop 12/14/16 at 02:50; Status DC Info (PHARMACY MONITORING -- do not chart) 1 each PRN DAILY PRN MC SEE COMMENTS ; Start 12/13/16 at 15:00; Status UNV Info 1 each 1 each PRN DAILY PRN MC SEE COMMENTS; Start 12/13/16 at 15:00; Stop 12/15/16 at 08:35; Status DC Sodium Phosphate 0.4 mmol/Dextrose 1 ml @ 50 mls/hr BID IV ; Start 12/14/16 at 09:00; Status UNV Albumin Human (Albuminar) 100 ml @ 100 mls/hr TID IV Last administered on 12/15 21:14; Start 12/14/16 at 09:00; Stop 12/15/16 at 21:59; Status DC Darbepoetin Koffi 60 mcg 60 mcg [id number] SQ Last administered on 12/14/16 21:07 ; Start 12/14/16 at 21:00 Sodium Phosphate/ Dextrose 113.3333 ml @ 28.333 m... Q4H IV Last administered on 1/19/17at 14:59; Start 12/14/16 at 09:00; Stop 12/14/16 at 16:59; Status DC Info (PHARMACY MONITORING -- do not chart) 1 each PRN DAILY PRN MC SEE COMMENTS ; Start 12/14/16 at 11:00; Status UNV Info 1 each 1 each PRN DAILY PRN MC SEE COMMENTS; Start 12/14/16 at 11:00; Status UNV Albumin Human 200 ml @ 200 mls/hr 1X PRN PRN IV Hypotension; Start 12/14/16 at 13:30; Stop 12/14/16 at 19:00; Status DC Sodium Chloride 1,000 ml @ 1,000 mls/hr Q1H PRN IV hypotension; Start 12/15/16 at 06:32; Stop 12/15/16 at 09:09; Status DC Albumin Human 200 ml @ 200 mls/hr 1X PRN PRN IV Hypotension Last administered on 12/15/16 07:38; Start 12/15/16 at 06:45; Stop 12/15/16 at 12:44; Status DC Sodium Chloride (Iv Sodium Chloride 0.9% 1000ml Bag) 1,000 ml @ 400 mls/hr Q2H30M PRN IV PATENCY; Start 12/15/16 at 06:32; Stop 12/15/16 at 18:31; Status DC Info 1 each 1 each PRN DAILY PRN MC SEE COMMENTS; Start 12/15/16 at 06:45 Piperacillin Sod/ Tazobactam Sod 2.25 gm/Sodium Chloride 50 ml @ 100 mls/hr Q8HRS IV ; Start 12/15/16 at 14:00; Stop 12/15/16 at 14:00; Status DC Piperacillin Sod/ Tazobactam Sod 2.25 gm/Sodium Chloride 50 ml @ 100 mls/hr Q6HRS IV ; Start 12/15/16 at 12:00; Status Cancel Dexmedetomidine HCl 200 mcg/ Sodium Chloride 50 ml @ 0 mls/hr CONT PRN IV PER PROTOCOL Last administered on 12/17/16t 18:11; Start 12/16/16 at 12:15; Stop at 07:51; Status DC Sodium Chloride (Iv Sodium Chloride 0.9% 500ml Bag) 500 ml @ 500 mls/hr 1X PRN PRN IV SEE COMMENTS; Start 12/16/16 at 12:15 Atropine Sulfate 0.5 mg 0.5 mg PRN Q5MIN PRN IV SEE COMMENTS; Start 12/16/16 at 12:15 Sodium Chloride 1,000 ml @ 1,000 mls/hr Q1H PRN IV hypotension; Start 12/16/16 at 20:04; Stop 12/17/16 at 02:03; Status DC Albumin Human (Albuminar) 200 ml @ 200 mls/hr 1X PRN PRN IV Hypotension Last administered on 12/16/16 20:30; Start 12/16/16 at 20:15; Stop 12/17/16 at 02:14 ; Status DC Sodium Chloride (Normal Saline Flush) 10 ml 1X PRN PRN IV AP catheter pack; Start 12/16/16 at 20:15; Stop 12/17/16 at 20:14; Status DC Sodium Chloride 10 ml 10 ml 1X PRN PRN IV BLOCKER POLISHING catheter pack; Start 12/16/16 at 20:15; Stop 12/17/16 at 20:14; Status DC Sodium Chloride (Iv Sodium Chloride 0.9% 1000ml Bag) 1,000 ml @ 400 mls/hr Q2H30M PRN IV PATENCY; Start 12/16/16 at 20:04; Stop 12/17/16 at 08:03; Status DC Info (PHARMACY MONITORING -- do not chart) 1 each PRN DAILY PRN MC SEE COMMENTS ; Start 12/16/16 at 20:15; Status UNV Info (PHARMACY MONITORING -- do not chart) 1 each PRN DAILY PRN MC SEE COMMENTS ; Start 12/16/16 at 20:15; Status UNV Enoxaparin Sodium 40 mg 40 mg Q24H SQ Last administered on 12/18/16 16:19; Start 12/17/16 at 16:00; Stop 12/19/16 at 07:31; Status DC Albumin Human (Albuminar) 100 ml @ 100 mls/hr 1X ONCE IV ; Start 12/17/16 at 20:00; Stop 12/17/16 at 20:59; Status DC Heparin Sodium (Porcine) 5,000 unit Q12HR SQ Last administered on 12/19/16 22: 47; Start 12/19/16 at 09:00 Furosemide 40 mg 40 mg 1X ONCE IVP Last administered on 12/19/16 08:13; Start 12/19/16 at 08:00; Stop 12/19/16 at 08:01; Status DC Potassium Chloride (KCl Premix 20meq) 50 ml @ 25 mls/hr Q2H IV Last administered on 12/19/16 08:16; Start 12/19/16 at 08:30; Stop 12/19/16 at 10:29 ; Status DC Lorazepam (Ativan) 2 mg STK-MED ONCE .ROUTE ; Start 12/19/16 at 10:51; Stop at 10:52; Status DC Lorazepam (Ativan) 4 mg 1X ONCE IV Last administered on 12/19/16 11:15; Start 12/19/16 at 11:15; Stop 12/19/16 at 11:16; Status DC Lorazepam (Ativan) 2 mg PRN Q2HRS PRN IV Seizure; Start 12/19/16 at 11:30 Lorazepam (Ativan) 4 mg PRN Q2HRS PRN IV Seizure; Start 12/19/16 at 11:30 Hydralazine HCl (Apresoline) 10 mg PRN Q4HRS PRN IVP ELEVATED BP, SEE COMMENTS ; Start 12/19/16 at 12:00 Info (PHARMACY MONITORING -- do not chart) 1 each PRN DAILY PRN MC SEE COMMENTS ; Start 12/19/16 at 14:00; Status UNV Info (PHARMACY MONITORING -- do not chart) 1 each PRN DAILY PRN MC SEE COMMENTS ; Start 12/19/16 at 14:00; Status UNV Lorazepam 1 mg 1 mg PRN Q4HRS PRN IV ANXIETY / AGITATION; Start 12/19/16 at 16: 30 Levetiracetam/ Sodium Chloride (Keppra/Iv Sodium Chloride 0.9% 100ml) 105 ml @ 400 mls/hr Q12HR IV Last administered on 12/20/16 09:15; Start 12/19/16 at 17: 00 Lorazepam 2 mg 2 mg PRN Q4HRS PRN IV ANXIETY / AGITATION; Start 12/19/16 at 16: 30 Amino Acids/ Glycerin/ Electrolytes (Procalamine) 1,000 ml @ 80 mls/hr [id number] IV Last administered on 12/20/16 11:45; Start 12/20/16 at 11:00 Barium Sulfate (Varibar Honey) 250 ml 1X ONCE PO ; Start 12/20/16 at 14:00; Stop 12/20/16 at 14:07; Status DC Active Scripts Active Ultram (Tramadol Hcl) 50 Mg Tablet 50 Mg PO Q6H PRN Robaxin (Methocarbamol) 500 Mg Tablet 500 Mg PO QID Reported Percocet 5-325 Mg Tablet (Oxycodone/Acetaminophen) 1 Each Tablet 1-2 Tab PO Q4HRS Vitals/I & O Vital Sign - Last 24 Hours 12/19/16 12/19/16 12/19/16 12/19/16 15:00 16:00 16:00 16:38 Temp 99.1 99.1 Pulse 117 106 Resp 22 B/P 100/75 101/76 Pulse Ox 97 94 98 O2 Delivery Venturi Mask NonRebreather Mask Venturi Mask NonRebreather Mask O2 Flow Rate 15.0 15.0 15.0 15.0 12/19/16 12/19/16 12/19/16 12/19/16 17:00 18:00 19:00 19:27 Pulse 108 110 112 B/P 106/77 103/80 106/73 Pulse Ox 99 96 96 98 O2 Delivery NonRebreather Mask Venturi Mask Venturi Mask Nasal Cannula O2 Flow Rate 15.0 15.0 15.0 6.0 12/19/16 12/19/16 12/19/16 12/20/16 20:00 20:00 22:26 03:00 Temp 98.9 97.6 98.6 98.9 97.6 98.6 Pulse 108 93 88 Resp 18 18 B/P 112/74 133/85 119/78 Pulse Ox 96 98 93 O2 Delivery Nasal Cannula Nasal Cannula Nasal Cannula Nasal Cannula O2 Flow Rate 8.0 8.0 8.0 8.0 12/20/16 12/20/16 12/20/16 12/20/16 07:00 07:56 10:52 10:57 Temp 98.1 98.1 98.1 98.1 Pulse 81 82 Resp 17 18 B/P 140/74 135/75 Pulse Ox 99 100 O2 Delivery Nasal Cannula Nasal Cannula Nasal Cannula Nasal Cannula O2 Flow Rate 8.0 8.0 12/20/16 12/20/16 11:14 11:54 Pulse Ox 100 O2 Delivery Nasal Cannula Nasal Cannula O2 Flow Rate 8.0 8.0 Intake and Output 12/19/16 12/19/16 12/20/16 15:00 23:00 07:00 Intake Total 0 ml Output Total 1600 ml 0 ml 100 ml Balance -1600 ml 0 ml -100 ml TARA JEFFERSON MD Dec 20, 2016 14:11
--- NOTE | 2016-12-20 14:20 | PDOC ---
PROGRESS NOTES Assessment Assessment Seizures, provoked. Cocaine, Cannabinoids, opiates, benzo positive in system. 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 Metabolic encephalopathy. Respiratory failure. Sepsis likely. Renal failure on dialysis. Bilateral pulmonary infiltrate. CVA symptoms but no evidence of acute CVA this time. RECOMMENDATIONS/PLAN: Ativan 1 -2 mg IV PRN q4h for seizures. Keppra 500 mg IV q12h if has further seizures, but not effective to substance provoked seizures. Treat medical diseases. Patient education for substances and drugs abstinence. Discussed in detail with his in am and his daughters in pm at bedside in ICU. Brain MRI 12/19: No acute CVA. EEG on 12/19: No seizure activity except the posterior dominant rhythm is slow for his age. HISTORY OF THE PRESENT ILLNESS: This is a 51-y-old AA male patient who was initailly admitted into the hospital due to medical diseases. He was intubated since but extubated on 12/18. He had several brief seizures or seizure like episodes and over night described as eye open, stiffness with some shaking movements for 20 seconds to 1 minute. He also had speech slurring and speech problems from time to time per nurse. No focalized motor deficits noted. He had episodes of so called aphasia, but he was able to write clearly. He resumed talking after talking to him. PAST MEDICAL HISTORY: Please see above. PAST SURGERY HISTORY: No major surgery recently. ALLERGY: Reviewed. MEDICATIONS: Refer to [facility] FAMILY HISTORY: Non contributory. SOCIAL HISTORY: Lives with his family. Smoking, drinking, and illicit drug use. Cocaine, Cannabinoids, benzo, opiates positive in system. He uses drugs on regular basis. REVIEW OF SYSTEMS: Constitutional: Malnutrition. Head: No recent traumatic brain or head injury. Skin: No edema, or rash. Ear: No infection, tinnitus. Eyes: No vision loss or color blindness. Nose: No bleeding or purulent discharges. Hearing: No hearing decrease. Neck: No injury.. Cardiac: No RI, arrhythmia Pulmonary: Pneumonia this time. GI: No GI ulcer, GI bleeding. Urinary/genital: Renal failure this time. Endocrinologic: No cousin face, craniofacial dysmorphism, polydactyly Skeletomuscular: Generalized weakness. Neurological: see HP. Psychiatric: Drug use/abuse. Otherwise, not [id number] review of systems. PHYSICAL EXAMINATION: General appearance is in subacute distress. HEENT: Normocephalic and nontraumatic. Eyes, nose, ears, and throat are unremarkable. Neck is supple. No lymphadenopathy. No bruits are heard over the carotid artery. No crepitus. Cardiovascular: S1, S2, regular rate and rhythm. Pulmonary: Decreased to auscultation bilaterally. Abdomen: Bowel sounds are positive. Extremities: No rash, lesions, or edema. No restriction of range of motion NEUROLOGICAL EXAMINATION: Awake. Able to speak clearly at exam. partially oriented to time, and knows place and person. PERRL. EOMI. CN: no focal findings. Muscle tone: within normal. Muscle strength: 5 DTR: 2 Plantar reflex: Flexor response bilaterally Gait: not examined in bed. Sensory exam: no abnormal findings. No obvious cerebellar signs elicited. F-T-N test not examed. Objective Objective Vital Signs Date Time Temp Pulse Resp B/P Pulse Ox O2 Delivery O2 Flow Rate FiO2 12/20/16 11:54 100 Nasal Cannula 8.0 12/20/16 10:52 98.1 82 18 135/75 98.1 Intake and Output 12/20/16 07:00 Intake Total 0 ml Output Total 1700 ml Balance -1700 ml Intake Oral 0 ml Output Urine Total 1700 ml Vitals Signs Vitals VS - Last 72 Hours, by Label Date Time Temp Pulse Resp B/P Pulse Ox O2 Delivery O2 Flow Rate FiO2 12/20/16 11:54 100 Nasal Cannula 8.0 12/20/16 11:14 Nasal Cannula 8.0 12/20/16 10:57 Nasal Cannula 8.0 12/20/16 10:52 98.1 82 18 135/75 100 Nasal Cannula 98.1 12/20/16 07:56 Nasal Cannula 8.0 12/20/16 07:00 98.1 81 17 140/74 99 Nasal Cannula 98.1 12/20/16 03:00 98.6 88 18 119/78 93 Nasal Cannula 8.0 98.6 12/19/16 22:26 97.6 93 18 133/85 98 Nasal Cannula 8.0 97.6 12/19/16 20:00 98.9 108 112/74 96 Nasal Cannula 8.0 98.9 12/19/16 20:00 Nasal Cannula 8.0 12/19/16 19:27 98 Nasal Cannula 6.0 12/19/16 19:00 112 106/73 96 Venturi Mask 15.0 12/19/16 18:00 110 103/80 96 Venturi Mask 15.0 12/19/16 17:00 108 106/77 99 NonRebreather Mask 15.0 12/19/16 16:38 98 NonRebreather Mask 15.0 12/19/16 16:00 Venturi Mask 15.0 12/19/16 16:00 99.1 106 101/76 94 NonRebreather Mask 15.0 99.1 12/19/16 15:00 117 22 100/75 97 Venturi Mask 15.0 12/19/16 14:00 107 31 140/89 92 Venturi Mask 15.0 12/19/16 13:05 94 Venturi Mask 15.0 12/19/16 13:00 106 27 159/97 95 Venturi Mask 15.0 12/19/16 12:00 Venturi Mask 15.0 12/19/16 12:00 98.9 101 24 162/97 95 Venturi Mask 15.0 98.9 12/19/16 11:00 108 26 149/101 95 Venturi Mask 15.0 12/19/16 08:20 94 Venturi Mask 15.0 12/19/16 08:00 97.5 81 25 158/84 95 Venturi Mask 15.0 97.5 12/19/16 08:00 Venturi Mask 15.0 Laboratory Laboratory Laboratory Tests Test 12/20/16 05:25 White Blood Count 27.7x10^3/uL (4.0-11.0) Red Blood Count 3.30x10^6/uL (4.30-5.70) Hemoglobin 9.7g/dL (13.0-17.5) Hematocrit 29.6% (39.0-53.0) Mean Corpuscular Volume 90fL (79-100) Mean Corpuscular Hemoglobin 29pg (25-35) Mean Corpuscular Hemoglobin Concent 33g/dL (31-37) Red Cell Distribution Width 14.4% (11.5-14.5) Platelet Count 485x10^3/uL (140-400) Neutrophils (%) (Auto) 76% (31-73) Lymphocytes (%) (Auto) 8% (24-48) Monocytes (%) (Auto) 15% (0-9) Eosinophils (%) (Auto) 0% (0-3) Basophils (%) (Auto) 1% (0-3) Neutrophils # (Auto) 21.0x10^3uL (1.8-7.7) Lymphocytes # (Auto) 2.2x10^3/uL (1.0-4.8) Monocytes # (Auto) 4.1x10^3/uL (0.0-1.1) Eosinophils # (Auto) 0.1x10^3/uL (0.0-0.7) Basophils # (Auto) 0.3x10^3/uL (0.0-0.2) Erythrocyte Sedimentation Rate 132 (0-15) Sodium Level 144mmol/L (136-145) Potassium Level 3.7mmol/L (3.5-5.1) Chloride Level 103mmol/L (98-107) Carbon Dioxide Level 24mmol/L (21-32) Anion Gap 17 (6-14) Blood Urea Nitrogen 30mg/dL (8-26) Creatinine 3.8mg/dL (0.7-1.3) Estimated GFR (Cockcroft-Gault) 20.6 Glucose Level 88mg/dL (70-99) Calcium Level 9.4mg/dL (8.5-10.1) Magnesium Level 1.8mg/dL (1.8-2.4) Procalcitonin 2.17ng/mL (0.00-0.10) Microbiology 12/07/16 Blood Culture - Final, Complete NO GROWTH AFTER 5 DAYS 12/07/16 Stool Culture - Final, Complete 12/07/16 Stool Culture Result 1 (NEFTALI) - Final, Complete 12/07/16 Campylobacter Antigen Assay - Final, Complete 12/07/16 Campylobactor Result 1 - Final, Complete 12/07/16 Shiga Toxin Test - Final, Complete 12/12/16 AFB Specimen Processing Tissue - Final, Resulted 12/12/16 Acid Fast Bacilli Culture, Resulted Pending 12/12/16 Gram Stain - Final, Resulted 12/12/16 Fungal Culture - Preliminary, Resulted 12/12/16 Fungal Culture Result 1 - Preliminary, Resulted 12/12/16 Urine Culture - Final, Complete 12/12/16 Urine Culture Result 1 (NEFTAIL) - Final, Complete Medication Medications Current Medications Amino Acids/ Glycerin/ Electrolytes (Procalamine) 1,000 ml @ 80 mls/hr [id number] IV Last administered on 12/20/16 11:45; Start 12/20/16 at 11:00 Barium Sulfate (Varibar Honey) 250 ml 1X ONCE PO ; Start 12/20/16 at 14:00; Stop 12/20/16 at 14:07; Status DC Levetiracetam/ Sodium Chloride (Keppra/Iv Sodium Chloride 0.9% 100ml) 105 ml @ 400 mls/hr Q12HR IV Last administered on 12/20/16 09:15; Start 12/19/16 at 17: 00 Lorazepam 1 mg 1 mg PRN Q4HRS PRN IV ANXIETY / AGITATION; Start 12/19/16 at 16: 30 Lorazepam 2 mg 2 mg PRN Q4HRS PRN IV ANXIETY / AGITATION; Start 12/19/16 at 16: 30 Comment Review of Relevant I have reviewed the following items immanuel (where applicable) has been applied. COLLETTE MOYER MD Dec 20, 2016 14:19
[2016-12-20] MEDS ORDERED: BARIUM SULFATE 40% 148 GM PWD PO ONE (15:15)
--- NOTE | 2016-12-20 15:27 | RAD ---
Indication: Possible aspiration. The procedure was performed in conjunction with speech pathology. Video fluoroscopy was performed during the swallowing of barium and multiple consistencies. The patient ingested thin and honey consistency. There is early spillover with both consistencies. Deep laryngeal penetration and aspiration was observed with all swallows of thin and honey consistency. The cough was weak and nonproductive. Moderate residue is noted. Impression: Abnormal video swallow demonstrating aspiration, as described.
[2016-12-20] MEDS: LORAZEPAM 2 MG/ML VIAL IV PRN (16:01)
[2016-12-20 19:00] VITALS: BP 131/77
[2016-12-20] MEDS: FAMOTIDINE 20 MG/2 ML VIAL IVP SCH (21:16)
[2016-12-20 23:20] VITALS: BP 141/81
[2016-12-21] MEDS: LORAZEPAM 2 MG/ML VIAL IV PRN ×4 (00:02→23:06)
[2016-12-21] MEDS: AA 3%/ELECTROLYTE-TPN SOLN/GLY 1,000 ML IV SCH ×3 (00:03→18:52)
[2016-12-21 03:58] VITALS: BP 132/72
[2016-12-21 06:07] LABS: CALCIUM 9.8 mg/dL (8.5-10.1); CREATININE 5.2 mg/dL (0.7-1.3); GFR 14.3; POTASSIUM 3.7 mmol/L (3.5-5.1)
--- NOTE | 2016-12-21 06:15 | RAD ---
Examination: Portable view of the abdomen. HISTORY History of Dobhoff catheter placement. COMPARISON None available Findings : The partially visualized dialysis catheter tip identified at the SVC RA junction. The Dobbhoff catheter is identified in the lower mid abdomen likely within the distal aspect of the distended stomach or in the proximal 1st part of duodenum. Partially visualized prominent appearing bilateral interstitial lung markings. IMPRESSION The Dobbhoff catheter tip is identified in the lower mid abdomen likely within the distal portion of the distended stomach or within the proximal portion of the 1st part of the duodenum. Electronically signed by: Chetan Griggs (Dec 21, 2016 06:13:55)
[2016-12-21 07:08] VITALS: BP 131/71
[2016-12-21] MEDS: ASPIRIN 81 MG TAB.CHEW PO SCH (07:47)
[2016-12-21 07:48] LABS: BASO # 0.3 x10^3/uL (0.0-0.2); BASO % 1 % (0-3); EOS % 0 % (0-3); HEMATOCRIT 29.5 % (39.0-53.0); HEMOGLOBIN 9.3 g/dL (13.0-17.5); LYMPH # 2.3 x10^3/uL (1.0-4.8); LYMPH % 9 % (24-48); MEAN CORPUSCULAR HEMOGLOBIN 29 pg (25-35); MEAN CORPUSCULAR HGB CONC 31 g/dL (31-37); MEAN CORPUSCULAR VOLUME 93 fL (79-100); MONO % 14 % (0-9); NEUT % 75 % (31-73); PLATELET COUNT 511 x10^3/uL (140-400); RED BLOOD COUNT 3.18 x10^6/uL (4.30-5.70); RED CELL DISTRIBUTION WIDTH 14.6 % (11.5-14.5); WHITE BLOOD COUNT 25.1 x10^3/uL (4.0-11.0)
--- NOTE | 2016-12-21 08:02 | RAD ---
Portable chest, 12/21/2016: History: Respiratory failure, CHF Comparison is made to yesterday's study. A right jugular dialysis type catheter extends to the level of the atriocaval junction. A Dobbhoff tube has been placed extending into the stomach. Its tip is not visible on this chest radiograph. The heart size is normal. Emphysematous change is present in the right upper lobe. Mild pulmonary infiltrates continue to slowly clear. No new pulmonary abnormality is seen. There is no evidence of pleural fluid or pneumothorax. IMPRESSION: 1. The right jugular dialysis type catheter and Dobbhoff tube are in satisfactory positions. 2. Slowly resolving pulmonary infiltrates.
--- NOTE | 2016-12-21 08:08 | PDOC ---
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 SKIN: No rash IV: PICC and RIJ Labs Lab Laboratory Tests Test 12/21/16 04:30 White Blood Count 25.1x10^3/uL (4.0-11.0) Red Blood Count 3.18x10^6/uL (4.30-5.70) Hemoglobin 9.3g/dL (13.0-17.5) Hematocrit 29.5% (39.0-53.0) Mean Corpuscular Volume 93fL (79-100) Mean Corpuscular Hemoglobin 29pg (25-35) Mean Corpuscular Hemoglobin Concent 31g/dL (31-37) Red Cell Distribution Width 14.6% (11.5-14.5) Platelet Count 511x10^3/uL (140-400) Neutrophils (%) (Auto) 75% (31-73) Lymphocytes (%) (Auto) 9% (24-48) Monocytes (%) (Auto) 14% (0-9) Eosinophils (%) (Auto) 0% (0-3) Basophils (%) (Auto) 1% (0-3) Neutrophils # (Auto) 18.8x10^3uL (1.8-7.7) Lymphocytes # (Auto) 2.3x10^3/uL (1.0-4.8) Monocytes # (Auto) 3.6x10^3/uL (0.0-1.1) Eosinophils # (Auto) 0.0x10^3/uL (0.0-0.7) Basophils # (Auto) 0.3x10^3/uL (0.0-0.2) Sodium Level 144mmol/L (136-145) Potassium Level 3.7mmol/L (3.5-5.1) Chloride Level 105mmol/L (98-107) Carbon Dioxide Level 21mmol/L (21-32) Anion Gap 18 (6-14) Blood Urea Nitrogen 52mg/dL (8-26) Creatinine 5.2mg/dL (0.7-1.3) Estimated GFR (Cockcroft-Gault) 14.3 Glucose Level 98mg/dL (70-99) Calcium Level 9.8mg/dL (8.5-10.1) Objective Assessment ? New seizure Leukocytosis - better off abx ? reactive with aspiration and ASHLEY Aspiration Sepsis with lactic acidosis. POA - resolved Anemia Fever - resolved Pneumonia - S/p Bronch 12/12 - GPC on gram stain. Cult neg so far - fungus -Influenza screen neg -Strep antigen & legionella Ag neg Acute encephalopathy Acute respiratory failure s/p intubation - resolved s/p PEA cardiopulmonary arrest - S/p Cath 12/12 -TTE EF 30-35%. -No veg noted Hypotension on vasopressor support x 2. Now off ASHLEY - Renal following - worse Polysubstance abuse Diarrhea. c. diff neg. stool cx neg Plan Plan of Care Remains AF and WBC better off abx ID to sign off LILIANA SEVERINO MD Dec 21, 2016 08:08
[2016-12-21] MEDS: IPRATROPIUM BROMIDE 0.5 MG/2.5 ML NEBU. NEB SCH ×4 (08:36→20:00)
[2016-12-21] MEDS: BUDESONIDE 0.5 MG/2 ML NEBU NEB SCH ×2 (08:36→16:30)
[2016-12-21] MEDS: LEVETIRACETAM 500 MG in IV NORMAL SALINE 100ML 100 ML IV SCH (09:44)
[2016-12-21] MEDS: HEPARIN PF for SUB-Q USE 5,000 UNIT/0.5 ML VIAL. SQ SCH ×2 (09:55→22:32)
[2016-12-21 10:10] VITALS: BP 116/65
--- NOTE | 2016-12-21 10:56 | PDOC ---
Renal-Progress Notes Subjective Notes Notes NONE History of Present Illness Hx of present illness NO CHANGE Vitals Vitals Vital Signs Date Time Temp Pulse Resp B/P Pulse Ox O2 Delivery O2 Flow Rate FiO2 12/21/16 10:10 98.1 81 18 116/65 95 Nasal Cannula 8.0 98.1 Weight Weight [ ] I.O. Intake and Output Intake and Output 12/21/16 07:00 Intake Total 397.08 ml Output Total 100 ml Balance 297.08 ml Intake Oral 0 ml IV Total 397.08 ml Output Urine Total 100 ml Labs Labs Laboratory Tests Test 12/21/16 04:30 White Blood Count 25.1x10^3/uL (4.0-11.0) Red Blood Count 3.18x10^6/uL (4.30-5.70) Hemoglobin 9.3g/dL (13.0-17.5) Hematocrit 29.5% (39.0-53.0) Mean Corpuscular Volume 93fL (79-100) Mean Corpuscular Hemoglobin 29pg (25-35) Mean Corpuscular Hemoglobin Concent 31g/dL (31-37) Red Cell Distribution Width 14.6% (11.5-14.5) Platelet Count 511x10^3/uL (140-400) Neutrophils (%) (Auto) 75% (31-73) Lymphocytes (%) (Auto) 9% (24-48) Monocytes (%) (Auto) 14% (0-9) Eosinophils (%) (Auto) 0% (0-3) Basophils (%) (Auto) 1% (0-3) Neutrophils # (Auto) 18.8x10^3uL (1.8-7.7) Lymphocytes # (Auto) 2.3x10^3/uL (1.0-4.8) Monocytes # (Auto) 3.6x10^3/uL (0.0-1.1) Eosinophils # (Auto) 0.0x10^3/uL (0.0-0.7) Basophils # (Auto) 0.3x10^3/uL (0.0-0.2) Sodium Level 144mmol/L (136-145) Potassium Level 3.7mmol/L (3.5-5.1) Chloride Level 105mmol/L (98-107) Carbon Dioxide Level 21mmol/L (21-32) Anion Gap 18 (6-14) Blood Urea Nitrogen 52mg/dL (8-26) Creatinine 5.2mg/dL (0.7-1.3) Estimated GFR (Cockcroft-Gault) 14.3 Glucose Level 98mg/dL (70-99) Calcium Level 9.8mg/dL (8.5-10.1) Micro Micro Microbiology 12/07/16 Blood Culture - Final, Complete NO GROWTH AFTER 5 DAYS 12/07/16 Stool Culture - Final, Complete 12/07/16 Stool Culture Result 1 (NEFTALI) - Final, Complete 12/07/16 Campylobacter Antigen Assay - Final, Complete 12/07/16 Campylobactor Result 1 - Final, Complete 12/07/16 Shiga Toxin Test - Final, Complete 12/12/16 AFB Specimen Processing Tissue - Final, Resulted 12/12/16 Acid Fast Bacilli Culture, Resulted Pending 12/12/16 Gram Stain - Final, Resulted 12/12/16 Fungal Culture - Preliminary, Resulted 12/12/16 Fungal Culture Result 1 - Preliminary, Resulted 12/12/16 Urine Culture - Final, Complete 12/12/16 Urine Culture Result 1 (NEFTALI) - Final, Complete Review of Systems Constitutional: yes: alert, oriented, weakness Ears/Nose/Throat: Yes: no symptom reported Eyes: Yes: no symptom reported Pulmonary: Yes no symptom reported Cardiovascular: Yes no symptom reported Gastrointestional: Yes: no symptom reported Genitourinary: Yes: no symptom reported Musculoskeletal: Yes: muscle atrophy, muscle stiffness Physical Exam General Appearance: no apparent distress Skin: warm Respiratory: decreased breath sounds Heart: S1S2, RRR Abdomen: soft, bowel sounds present Genitourinary: bladder flat Neurology: alert, oriented, other (agitated) Assessment Assessment IMP ASHLEY-NON OLIGURIC BUT NO CLEARANCE WITH CR UP TO 5.2 ANEMIA LEUCOCYTOSIS PNEUMONIA SEIZURE DYSPHAGIA DECONDITIONING PLAN CONT ANTIBIOTICS CONT PPN HD TODAY UF TO DW INCREASE ACTIVITY WILL FOLLOW BLUE RICHARDSON MD Dec 21, 2016 10:56
--- NOTE | 2016-12-21 11:36 | PDOC ---
PULMONARY PROGRESS NOTES Subjective no soa Vitals Vital Signs Date Time Temp Pulse Resp B/P Pulse Ox O2 Delivery O2 Flow Rate FiO2 12/21/16 10:10 98.1 81 18 116/65 95 Nasal Cannula 8.0 98.1 Comments ros as mentioned as above discussed w rn, off sedation agitated. ROS: No Nausea, No Chest Pain, No Abdominal Pain General: Alert, No acute distress HEENT: Other (nc at perrl, orally intubated) Lungs: Clear Cardiovascular: S1, S2 Abdomen: Soft, Non-tender, Other (no mass) Neuro Exam: Alert Extremities: No Edema Skin: Warm, Dry, No Rashes Labs Laboratory Tests Test 12/20/16 05:25 12/21/16 04:30 White Blood Count 27.7x10^3/uL (4.0-11.0) 25.1x10^3/uL (4.0-11.0) Red Blood Count 3.30x10^6/uL (4.30-5.70) 3.18x10^6/uL (4.30-5.70) Hemoglobin 9.7g/dL (13.0-17.5) 9.3g/dL (13.0-17.5) Hematocrit 29.6% (39.0-53.0) 29.5% (39.0-53.0) Mean Corpuscular Volume 90fL (79-100) 93fL (79-100) Mean Corpuscular Hemoglobin 29pg (25-35) 29pg (25-35) Mean Corpuscular Hemoglobin Concent 33g/dL (31-37) 31g/dL (31-37) Red Cell Distribution Width 14.4% (11.5-14.5) 14.6% (11.5-14.5) Platelet Count 485x10^3/uL (140-400) 511x10^3/uL (140-400) Neutrophils (%) (Auto) 76% (31-73) 75% (31-73) Lymphocytes (%) (Auto) 8% (24-48) 9% (24-48) Monocytes (%) (Auto) 15% (0-9) 14% (0-9) Eosinophils (%) (Auto) 0% (0-3) 0% (0-3) Basophils (%) (Auto) 1% (0-3) 1% (0-3) Neutrophils # (Auto) 21.0x10^3uL (1.8-7.7) 18.8x10^3uL (1.8-7.7) Lymphocytes # (Auto) 2.2x10^3/uL (1.0-4.8) 2.3x10^3/uL (1.0-4.8) Monocytes # (Auto) 4.1x10^3/uL (0.0-1.1) 3.6x10^3/uL (0.0-1.1) Eosinophils # (Auto) 0.1x10^3/uL (0.0-0.7) 0.0x10^3/uL (0.0-0.7) Basophils # (Auto) 0.3x10^3/uL (0.0-0.2) 0.3x10^3/uL (0.0-0.2) Erythrocyte Sedimentation Rate 132 (0-15) Sodium Level 144mmol/L (136-145) 144mmol/L (136-145) Potassium Level 3.7mmol/L (3.5-5.1) 3.7mmol/L (3.5-5.1) Chloride Level 103mmol/L (98-107) 105mmol/L (98-107) Carbon Dioxide Level 24mmol/L (21-32) 21mmol/L (21-32) Anion Gap 17 (6-14) 18 (6-14) Blood Urea Nitrogen 30mg/dL (8-26) 52mg/dL (8-26) Creatinine 3.8mg/dL (0.7-1.3) 5.2mg/dL (0.7-1.3) Estimated GFR (Cockcroft-Gault) 20.6 14.3 Glucose Level 88mg/dL (70-99) 98mg/dL (70-99) Calcium Level 9.4mg/dL (8.5-10.1) 9.8mg/dL (8.5-10.1) Magnesium Level 1.8mg/dL (1.8-2.4) Procalcitonin 2.17ng/mL (0.00-0.10) HIV-1 Antibody Non reactive (Non Reactive) Laboratory Tests Test 12/21/16 04:30 White Blood Count 25.1x10^3/uL (4.0-11.0) Red Blood Count 3.18x10^6/uL (4.30-5.70) Hemoglobin 9.3g/dL (13.0-17.5) Hematocrit 29.5% (39.0-53.0) Mean Corpuscular Volume 93fL (79-100) Mean Corpuscular Hemoglobin 29pg (25-35) Mean Corpuscular Hemoglobin Concent 31g/dL (31-37) Red Cell Distribution Width 14.6% (11.5-14.5) Platelet Count 511x10^3/uL (140-400) Neutrophils (%) (Auto) 75% (31-73) Lymphocytes (%) (Auto) 9% (24-48) Monocytes (%) (Auto) 14% (0-9) Eosinophils (%) (Auto) 0% (0-3) Basophils (%) (Auto) 1% (0-3) Neutrophils # (Auto) 18.8x10^3uL (1.8-7.7) Lymphocytes # (Auto) 2.3x10^3/uL (1.0-4.8) Monocytes # (Auto) 3.6x10^3/uL (0.0-1.1) Eosinophils # (Auto) 0.0x10^3/uL (0.0-0.7) Basophils # (Auto) 0.3x10^3/uL (0.0-0.2) Sodium Level 144mmol/L (136-145) Potassium Level 3.7mmol/L (3.5-5.1) Chloride Level 105mmol/L (98-107) Carbon Dioxide Level 21mmol/L (21-32) Anion Gap 18 (6-14) Blood Urea Nitrogen 52mg/dL (8-26) Creatinine 5.2mg/dL (0.7-1.3) Estimated GFR (Cockcroft-Gault) 14.3 Glucose Level 98mg/dL (70-99) Calcium Level 9.8mg/dL (8.5-10.1) Medications Active Scripts Medications Dose Route/Sig Days Date Category Percocet 5-325 Mg Tablet (Oxycodone/Acetaminophen) 1 Each Tablet 1-2 Tab PO Q4HRS 05/25/16 Reported Ultram (Tramadol Hcl) 50 Mg Tablet 50 Mg PO Q6H PRN 05/22/16 Rx Robaxin (Methocarbamol) 500 Mg Tablet 500 Mg PO QID 05/22/16 Rx Comments cxr 12/21 overall sig. improved bilateral infiltrates c/w 5 days ago Impression . 1. Acute hypoxemic respiratory failure, multifactorial in etiology.(septic shock, CHF, Metabolic acidosis, Renal failure,Possible pneumonia) 2. Extubated 12/17/ increase hypoxia early am due to seizure? aspiration/ increase CHF 3. CMP (EF 30%)/ cath findings c/w CHF 4. Septic shock POA. resolved 5. Acute kidney injury - currently on HD 6. Smoker. 7. History of drug abuse. 8. Status post cardiopulmonary arrest. 9. Hypotension.off pressors 10.Metabolic acidosis - resolved 11. s/ p cath the Right Atrial Pressure is 20 mmHg. The Right Ventricular Pressure is 50/30 mmHg. The Pulmonary Artery Pressure is 50/29 mmHg. The Pulmonary Catheter Wedge Pressure is 25 mmHg. LVEDP 30. This is c/w ongoing CHF 12. Leukocytosis, cxr improving. f/u ID recommendations Plan . 1. Continue nasal canula 2. brain MRI result/ neg for CVA 3. Bronchodilator, 4. s/p Bronch , severe tracheitis, cultures neg 5. ID recommendations regarding increasing WBC 6. speech eval/ PPN / DHF 7. Pepcid and heparin for stress ulcer and DVT prophylaxis. 8. Urine drug screen, pos.for cocaine 10. Follow Cardiology and nephrology recommendations. 11. HD/ UF to continue per nephrology 12. CXR improving CHF 13. no further pulmonary recommendations. will see SUZIE Arroyo MD Dec 21, 2016 11:36
--- NOTE | 2016-12-21 12:53 | PDOC ---
PROGRESS NOTES Chief Complaint Chief Complaint Encephalopathy, delirium, dysphagia Chief Complaint: - Weakness, dehydration - Cardiac arrest PEA (12/08); TTE EF of 30-35% - Acute respiratory failure, likely multifactorial; On mechanical Ventilation ( 12/08)- possible aspiration pneumonia. Possible ARDS vs pulmonary edema vs PNA - ASHLEY - vasomotor - on admit, Septic shock, multiorgan failure, out of ICU, better, - Cardiomyopathy - Metabolic acidosis - Polysubstance abuse, cocaine cardiomyopathy - Elevated troponin - Hypocalcemia. History of Present Illness History of Present Illness pt confused, wanting to go out to eat, upset about NPO video swallow today discussed with Pt and patient's - she is in room, and concerned that his mental status is not improving more Vitals Vitals Vital Signs Date Time Temp Pulse Resp B/P Pulse Ox O2 Delivery O2 Flow Rate FiO2 12/21/16 10:10 98.1 81 18 116/65 95 Nasal Cannula 8.0 98.1 Physical Exam Physical Exam Pupils pinpoint, reactive to light General: Alert, Cooperative, No acute distress, Other (follows commands most of the time, ) Heart: Regular rate, No murmurs, Other (HR reg) Lungs: Clear Abdomen: Normal bowel sounds, Soft Extremities: No clubbing, No cyanosis Skin: No rashes, No significant lesion, Other ( ) Labs LABS Laboratory Tests Test 12/21/16 04:30 White Blood Count 25.1x10^3/uL (4.0-11.0) Red Blood Count 3.18x10^6/uL (4.30-5.70) Hemoglobin 9.3g/dL (13.0-17.5) Hematocrit 29.5% (39.0-53.0) Mean Corpuscular Volume 93fL (79-100) Mean Corpuscular Hemoglobin 29pg (25-35) Mean Corpuscular Hemoglobin Concent 31g/dL (31-37) Red Cell Distribution Width 14.6% (11.5-14.5) Platelet Count 511x10^3/uL (140-400) Neutrophils (%) (Auto) 75% (31-73) Lymphocytes (%) (Auto) 9% (24-48) Monocytes (%) (Auto) 14% (0-9) Eosinophils (%) (Auto) 0% (0-3) Basophils (%) (Auto) 1% (0-3) Neutrophils # (Auto) 18.8x10^3uL (1.8-7.7) Lymphocytes # (Auto) 2.3x10^3/uL (1.0-4.8) Monocytes # (Auto) 3.6x10^3/uL (0.0-1.1) Eosinophils # (Auto) 0.0x10^3/uL (0.0-0.7) Basophils # (Auto) 0.3x10^3/uL (0.0-0.2) Sodium Level 144mmol/L (136-145) Potassium Level 3.7mmol/L (3.5-5.1) Chloride Level 105mmol/L (98-107) Carbon Dioxide Level 21mmol/L (21-32) Anion Gap 18 (6-14) Blood Urea Nitrogen 52mg/dL (8-26) Creatinine 5.2mg/dL (0.7-1.3) Estimated GFR (Cockcroft-Gault) 14.3 Glucose Level 98mg/dL (70-99) Calcium Level 9.8mg/dL (8.5-10.1) Review of Systems Review of Systems no n.v.d Assessment and Plan Assessmemt and Plan NG tube feeds Problems Medical Problems: (1) ARF (acute renal failure) Status: Acute (2) CAP (community acquired pneumonia) Status: Acute Problems: Comment Review of Relevant I have reviewed the following items immanuel (where applicable) has been applied. Labs Laboratory Tests Test 12/20/16 05:25 12/21/16 04:30 White Blood Count 27.7x10^3/uL (4.0-11.0) 25.1x10^3/uL (4.0-11.0) Red Blood Count 3.30x10^6/uL (4.30-5.70) 3.18x10^6/uL (4.30-5.70) Hemoglobin 9.7g/dL (13.0-17.5) 9.3g/dL (13.0-17.5) Hematocrit 29.6% (39.0-53.0) 29.5% (39.0-53.0) Mean Corpuscular Volume 90fL (79-100) 93fL (79-100) Mean Corpuscular Hemoglobin 29pg (25-35) 29pg (25-35) Mean Corpuscular Hemoglobin Concent 33g/dL (31-37) 31g/dL (31-37) Red Cell Distribution Width 14.4% (11.5-14.5) 14.6% (11.5-14.5) Platelet Count 485x10^3/uL (140-400) 511x10^3/uL (140-400) Neutrophils (%) (Auto) 76% (31-73) 75% (31-73) Lymphocytes (%) (Auto) 8% (24-48) 9% (24-48) Monocytes (%) (Auto) 15% (0-9) 14% (0-9) Eosinophils (%) (Auto) 0% (0-3) 0% (0-3) Basophils (%) (Auto) 1% (0-3) 1% (0-3) Neutrophils # (Auto) 21.0x10^3uL (1.8-7.7) 18.8x10^3uL (1.8-7.7) Lymphocytes # (Auto) 2.2x10^3/uL (1.0-4.8) 2.3x10^3/uL (1.0-4.8) Monocytes # (Auto) 4.1x10^3/uL (0.0-1.1) 3.6x10^3/uL (0.0-1.1) Eosinophils # (Auto) 0.1x10^3/uL (0.0-0.7) 0.0x10^3/uL (0.0-0.7) Basophils # (Auto) 0.3x10^3/uL (0.0-0.2) 0.3x10^3/uL (0.0-0.2) Erythrocyte Sedimentation Rate 132 (0-15) Sodium Level 144mmol/L (136-145) 144mmol/L (136-145) Potassium Level 3.7mmol/L (3.5-5.1) 3.7mmol/L (3.5-5.1) Chloride Level 103mmol/L (98-107) 105mmol/L (98-107) Carbon Dioxide Level 24mmol/L (21-32) 21mmol/L (21-32) Anion Gap 17 (6-14) 18 (6-14) Blood Urea Nitrogen 30mg/dL (8-26) 52mg/dL (8-26) Creatinine 3.8mg/dL (0.7-1.3) 5.2mg/dL (0.7-1.3) Estimated GFR (Cockcroft-Gault) 20.6 14.3 Glucose Level 88mg/dL (70-99) 98mg/dL (70-99) Calcium Level 9.4mg/dL (8.5-10.1) 9.8mg/dL (8.5-10.1) Magnesium Level 1.8mg/dL (1.8-2.4) Procalcitonin 2.17ng/mL (0.00-0.10) HIV-1 Antibody Non reactive (Non Reactive) Laboratory Tests Test 12/21/16 04:30 White Blood Count 25.1x10^3/uL (4.0-11.0) Red Blood Count 3.18x10^6/uL (4.30-5.70) Hemoglobin 9.3g/dL (13.0-17.5) Hematocrit 29.5% (39.0-53.0) Mean Corpuscular Volume 93fL (79-100) Mean Corpuscular Hemoglobin 29pg (25-35) Mean Corpuscular Hemoglobin Concent 31g/dL (31-37) Red Cell Distribution Width 14.6% (11.5-14.5) Platelet Count 511x10^3/uL (140-400) Neutrophils (%) (Auto) 75% (31-73) Lymphocytes (%) (Auto) 9% (24-48) Monocytes (%) (Auto) 14% (0-9) Eosinophils (%) (Auto) 0% (0-3) Basophils (%) (Auto) 1% (0-3) Neutrophils # (Auto) 18.8x10^3uL (1.8-7.7) Lymphocytes # (Auto) 2.3x10^3/uL (1.0-4.8) Monocytes # (Auto) 3.6x10^3/uL (0.0-1.1) Eosinophils # (Auto) 0.0x10^3/uL (0.0-0.7) Basophils # (Auto) 0.3x10^3/uL (0.0-0.2) Sodium Level 144mmol/L (136-145) Potassium Level 3.7mmol/L (3.5-5.1) Chloride Level 105mmol/L (98-107) Carbon Dioxide Level 21mmol/L (21-32) Anion Gap 18 (6-14) Blood Urea Nitrogen 52mg/dL (8-26) Creatinine 5.2mg/dL (0.7-1.3) Estimated GFR (Cockcroft-Gault) 14.3 Glucose Level 98mg/dL (70-99) Calcium Level 9.8mg/dL (8.5-10.1) Microbiology 12/07/16 Blood Culture - Final, Complete NO GROWTH AFTER 5 DAYS 12/07/16 Stool Culture - Final, Complete 12/07/16 Stool Culture Result 1 (NEFTALI) - Final, Complete 12/07/16 Campylobacter Antigen Assay - Final, Complete 12/07/16 Campylobactor Result 1 - Final, Complete 12/07/16 Shiga Toxin Test - Final, Complete 12/12/16 AFB Specimen Processing Tissue - Final, Resulted 12/12/16 Acid Fast Bacilli Culture, Resulted Pending 12/12/16 Gram Stain - Final, Resulted 12/12/16 Fungal Culture - Preliminary, Resulted 12/12/16 Fungal Culture Result 1 - Preliminary, Resulted 12/12/16 Urine Culture - Final, Complete 12/12/16 Urine Culture Result 1 (NEFTALI) - Final, Complete Medications Current Medications Ketorolac Tromethamine 30 mg 30 mg 1X ONCE IV Last administered on 12/07/16 14:34; Start 12/07/16 at 14:30; Stop 12/07/16 at 14:31; Status DC Sodium Chloride 1,000 ml @ 1,000 mls/hr 1X ONCE IV Last administered on 14:34; Start 12/07/16 at 14:30; Stop 12/07/16 at 15:29; Status DC Ceftriaxone Sodium 1 gm/ Sodium Chloride 50 ml @ 100 mls/hr Q24H IV ; Start at 15:30; Stop 12/08/16 at 15:30; Status DC Azithromycin 250 ml @ 250 mls/hr 1X ONCE IV Last administered on 12/07/16 15 :48; Start 12/07/16 at 15:15; Stop 12/07/16 at 16:14; Status DC Sodium Chloride 1,000 ml @ 1,000 mls/hr 1X ONCE IV Last administered on 16:09; Start 12/07/16 at 15:15; Stop 12/07/16 at 16:14; Status DC Ceftriaxone Sodium 50 ml @ 100 mls/hr 1X ONCE IV Last administered on 15:29; Start 12/07/16 at 15:15; Stop 12/07/16 at 15:44; Status DC Sodium Chloride (Iv Sodium Chloride 0.9% 1000ml Bag) 1,000 ml @ 150 mls/hr 1X ONCE IV Last administered on 12/07/16 18:10; Start 12/07/16 at 15:15; Stop 11/11 at 21:54; Status DC Famotidine (Pepcid) 20 mg 1X ONCE IVP Last administered on 12/07/16 15:48; Start 12/07/16 at 15:45; Stop 12/07/16 at 15:46; Status DC Ondansetron HCl 4 mg 4 mg 1X ONCE IV Last administered on 12/07/16 16:09; Start 12/07/16 at 16:15; Stop 12/07/16 at 16:16; Status DC Sodium Chloride (Iv Sodium Chloride 0.9% 1000ml Bag) 1,000 ml @ 150 mls/hr Q6H40M IV Last administered on 12/08/16 06:38; Start 12/07/16 at 16:30; Stop 12/08/16 at 14:21; Status DC Ondansetron HCl (Zofran) 4 mg PRN Q6HRS PRN IV NAUSEA/VOMITING Last administered on 12/19/16 02:59; Start 12/07/16 at 16:30 Acetaminophen (Tylenol) 500 mg PRN Q6HRS PRN PO MILD PAIN / TEMP Last administered on 12/09/16 15:04; Start 12/07/16 at 16:30 Morphine Sulfate 2 mg PRN Q2HR PRN IV PAIN Last administered on 12/08/16 05:28 ; Start 12/07/16 at 16:30 Zolpidem Tartrate (Ambien) 5 mg PRN QHS PRN PO INSOMNIA Last administered on 01:06; Start 12/07/16 at 16:30; Stop 12/08/16 at 10:03; Status DC Methocarbamol (Robaxin) 500 mg QID PO Last administered on 12/07/16 21:19; Start 12/07/16 at 17:00; Stop 12/08/16 at 10:03; Status DC Oxycodone/ Acetaminophen (Percocet 5/325) 1 tab PRN Q4HRS PRN PO SEVERE PAIN; Start 12/07/16 at 16:30 Tramadol HCl (Ultram) 50 mg PRN Q6HRS PRN PO MODERATE PAIN Last administered on 12/07/16 17:11; Start 12/07/16 at 16:30 Nicotine (Nicoderm Cq 21mg) 1 patch PRN DAILY PRN TD SMOKING CESSATION; Start 12/07/16 at 16:30 Info (Do NOT chart on this placeholder) 1 each 1X ONCE MC ; Start 12/07/16 at 22:45; Stop 12/07/16 at 22:46; Status UNV Pneumococcal Polyvalent Vaccine (Do NOT chart on this placeholder) 1 each 1X ONCE MC ; Start 12/07/16 at 22:45; Stop 12/07/16 at 22:46; Status UNV Influenza Virus Vaccine Quadrival (Fluarix Quad [id number] Syringe) 0.5 ml ONCE ONCE VAX IM ; Start 12/08/16 at 09:00; Stop 12/08/16 at 09:01; Status DC Pneumococcal Polyvalent Vaccine (Pneumovax 23) 0.5 ml ONCE ONCE VAX IM ; Start 12/08/16 at 09:00; Stop 12/08/16 at 09:01; Status DC Labetalol HCl (Normodyne) 10 mg 1X ONCE IVP Last administered on 12/08/16 08: 56; Start 12/08/16 at 08:30; Stop 12/08/16 at 08:35; Status DC Alprazolam (Xanax) 0.5 mg 1X ONCE PO Last administered on 12/08/16 08:40; Start 12/08/16 at 08:45; Stop 12/08/16 at 08:46; Status DC Aspirin (Children'S Aspirin) 324 mg 1X ONCE PO Last administered on 12/08/16 13:44; Start 12/08/16 at 09:30; Stop 12/08/16 at 09:31; Status DC Aspirin (Jada Aspirin) 325 mg DAILYWBKFT PO ; Start 12/09/16 at 08:00; Stop at 08:00; Status DC Heparin Sodium (Porcine) 4000 unit 4,000 unit 1X ONCE IV ; Start 12/08/16 at 09 :30; Stop 12/08/16 at 14:21; Status DC Midazolam HCl 100 ml @ As Directed STK-MED ONCE IV ; Start 12/08/16 at 09:52; Stop 12/08/16 at 09:53; Status DC Propofol (Diprivan) 100 ml @ 0 mls/hr CONT PRN IV SEE I/O RECORD Last administered on 12/08/16 23:49; Start 12/08/16 at 10:00; Stop 12/21/16 at 10:34 ; Status DC Famotidine (Pepcid) 20 mg QHS IVP Last administered on 12/20/16 21:16; Start 12/08/16 at 21:00 Heparin Sodium (Porcine) 5000 unit 5,000 unit Q8HRS SQ ; Start 12/08/16 at 14:00 ; Stop 12/08/16 at 14:00; Status DC Norepinephrine Bitartrate 8 mg/ Sodium Chloride 258 ml @ 1.93 mls/hr CONT PRN IV SEE I/O RECORD; Start 12/08/16 at 10:15; Status Cancel Dopamine HCl/ Dextrose 250 ml @ As Directed STK-MED ONCE IV ; Start 12/08/16 at 10:07; Stop 12/08/16 at 10:08; Status DC Norepinephrine Bitartrate 8 mg/ Sodium Chloride 258 ml @ 0 mls/hr CONT PRN IV SEE I/O RECORD Last administered on 12/09/16 08:46; Start 12/08/16 at 10:15; Stop 12/09/16 at 11:47; Status DC Dopamine HCl/ Dextrose 250 ml @ 10.084 mls/ hr CONT PRN IV SEE I/O RECORD Last administered on 12/08/16 10:00; Start 12/08/16 at 10:15; Stop 12/21/16 at 10:35; Status DC Sodium Bicarbonate/ Sodium Chloride (Iv Sodium Chloride 0.45%) 1,050 ml @ 200 mls/hr Q5H15M IV Last administered on 12/09/16 05:11; Start 12/08/16 at 10:30 ; Stop 12/09/16 at 08:28; Status DC Phenylephrine HCl 1 mg STK-MED ONCE IV ; Start 12/08/16 at 10:25; Stop 12/08/16 at 10:26; Status DC Aspirin 300 mg 300 mg 1X ONCE HI ; Start 12/08/16 at 10:45; Stop 12/08/16 at 10 :46; Status DC Sodium Chloride 1,000 ml @ 1,000 mls/hr 1X ONCE IV Last administered on 10:00; Start 12/08/16 at 11:45; Stop 12/08/16 at 12:44; Status DC Sodium Chloride (Iv Sodium Chloride 0.9% 1000ml Bag) 1,000 ml @ 1,000 mls/hr 1X ONCE IV Last administered on 12/08/16 10:00; Start 12/08/16 at 11:45; Stop 12/08/16 at 12:44; Status DC Albuterol/ Ipratropium (Duoneb) 3 ml RTQID NEB Last administered on 12/08/16 19:44; Start 12/08/16 at 12:30; Stop 12/09/16 at 05:17; Status DC Budesonide 0.5 mg 0.5 mg RTBID NEB Last administered on 12/21/16 08:36; Start 12/08/16 at 12:30 Sodium Chloride 1,000 ml @ 1,000 mls/hr 1X ONCE IV Last administered on 11:00; Start 12/08/16 at 12:15; Stop 12/08/16 at 13:14; Status DC Sodium Chloride 1,000 ml @ 1,000 mls/hr 1X ONCE IV Last administered on 11:00; Start 12/08/16 at 12:15; Stop 12/08/16 at 13:14; Status DC Heparin Sodium/ Dextrose 500 ml @ 0 mls/hr CONT PRN IV SEE I/O RECORD Last administered on 1/14/17at 13:11; Start 12/08/16 at 12:45; Stop 12/13/16 at 13:10 ; Status DC Heparin Sodium (Porcine) 1,350 unit PRN Q6HRS PRN IV FOR UFH LEVEL LESS THAN 0.2 Last administered on 12/09/16 05:47; Start 12/08/16 at 12:45; Stop at 13:10; Status DC Etomidate (Amidate) 20 mg STK-MED ONCE IV ; Start 12/08/16 at 13:00; Stop at 13:01; Status DC Succinylcholine Chloride 200 mg 200 mg STK-MED ONCE .ROUTE ; Start 12/08/16 at 13:00; Stop 12/08/16 at 13:01; Status DC Piperacillin Sod/ Tazobactam Sod 3.375 gm/Sodium Chloride 50 ml @ 100 mls/hr Q6HRS IV ; Start 12/08/16 at 18:00; Stop 12/08/16 at 18:00; Status DC Vancomycin HCl 1 gm/Sodium Chloride 250 ml @ 250 mls/hr 1X ONCE IV Last administered on 12/08/16 14:21; Start 12/08/16 at 14:00; Stop 12/08/16 at 14:59 ; Status DC Piperacillin Sod/ Tazobactam Sod 2.25 gm/Sodium Chloride 50 ml @ 100 mls/hr Q6HRS IV Last administered on 12/09/16 06:17; Start 12/08/16 at 14:00; Stop at 08:25; Status DC Midazolam HCl 100 ml @ 0 mls/hr CONT PRN IV SEE I/O RECORD Last administered on 12/17/16 04:53; Start 12/08/16 at 10:30; Stop 12/21/16 at 10:36; Status DC Fentanyl Citrate (Fentanyl 600 Mcg/30 ml [employer] TECHNICIAN) 30 ml @ 0 mls/hr CONT PRN IV PROTOCOL Last administered on 12/17/16 04:54; Start 12/09/16 at 05:15 Fentanyl Citrate (Fentanyl 2ml Vial) 25 mcg PRN Q1HR PRN IV COMM; Start at 05:15 Fentanyl Citrate (Fentanyl 2ml Vial) 50 mcg PRN Q1HR PRN IV COMM Last administered on 12/18/16 21:54; Start 12/09/16 at 05:15 Ipratropium [place] (Atrovent) 0.5 mg RTQID NEB Last administered on 12/21/16 11:39; Start 12/09/16 at 08:00 Aspirin (Children'S Aspirin) 81 mg DAILYWBKFT PO Last administered on 08:37; Start 12/09/16 at 08:00 Chlorhexidine Gluconate 15 ml 15 ml BID MM Last administered on 12/18/16 21:49 ; Start 12/09/16 at 09:00; Stop 12/19/16 at 08:54; Status DC Sodium Bicarbonate 150 meq/Dextrose 1,150 ml @ 100 mls/hr [id number] IV Last administered on 12/10/16 09:34; Start 12/09/16 at 09:00; Stop 12/10/16 at 12:14 ; Status DC Piperacillin Sod/ Tazobactam Sod 3.375 gm/Sodium Chloride 50 ml @ 100 mls/hr Q6HRS IV Last administered on 12/11/16 06:01; Start 12/09/16 at 12:00; Stop at 07:47; Status DC Norepinephrine Bitartrate 16 mg/ Sodium Chloride 266 ml @ 0.99 mls/hr CONT PRN IV SEE I/O RECORD Last administered on 12/09/16 20:36; Start 12/09/16 at 12 :00; Stop 12/21/16 at 10:35; Status DC Doxycycline Hyclate/Dextrose 100 ml @ 50 mls/hr Q12HR IV Last administered on 12/13/16 20:50; Start 12/09/16 at 13:00; Stop 12/14/16 at 08:34; Status DC Atropine Sulfate 0.5 mg STK-MED ONCE .ROUTE ; Start 12/08/16 at 10:30; Stop at 13:18; Status DC Epinephrine HCl 3 mg STK-MED ONCE .ROUTE ; Start 12/08/16 at 10:30; Stop at 13:18; Status DC Calcium Gluconate 1000 mg 1,000 mg 1X ONCE IVP ; Start 12/10/16 at 10:00; Stop 12/10/16 at 10:01; Status UNV Magnesium Sulfate/ Dextrose 50 ml @ 25 mls/hr 1X ONCE IV Last administered on 12/10/16 11:40; Start 12/10/16 at 12:00; Stop 12/10/16 at 13:59; Status DC Calcium Gluconate 1000 mg/Sodium Chloride 110 ml @ 220 mls/hr 1X ONCE IV Last administered on 12/10/16 11:36; Start 12/10/16 at 12:00; Stop 12/10/16 at 12:29; Status DC Magnesium Sulfate/ Dextrose 50 ml @ 25 mls/hr PRN DAILY PRN IV for Mag < 1.7 on am labs; Start 12/10/16 at 12:15; Stop 12/13/16 at 09:57; Status DC Amino Acids/ Glycerin/ Electrolytes 1,000 ml @ 80 mls/hr [id number] IV ; Start at 12:30; Stop 12/10/16 at 12:30; Status DC Albumin Human (Albuminar) 100 ml @ 100 mls/hr TID IV ; Start 12/10/16 at 14:00 ; Stop 12/10/16 at 14:00; Status DC Calcium Gluconate 2000 mg 2,000 mg TID IVP ; Start 12/10/16 at 14:00; Stop 12/10 at 14:00; Status DC Piperacillin Sod/ Tazobactam Sod 2.25 gm/Sodium Chloride 50 ml @ 100 mls/hr Q6HRS IV Last administered on 12/18/16 05:58; Start 12/11/16 at 12:00; Stop at 07:17; Status DC Linezolid (Zyvox Premix) 300 ml @ 300 mls/hr Q12HR IV Last administered on 21:24; Start 12/11/16 at 09:00; Stop 12/18/16 at 07:17; Status DC Info 1 each 1 each PRN DAILY PRN MC SEE COMMENTS Last administered on 08:21; Start 12/11/16 at 08:15; Stop 12/13/16 at 13:13; Status DC Potassium Phosphate/Sodium Chloride (Potassium Phosphate/Iv Sodium Chloride 0.9 % 100ml) 104.5333 ml @ 52.267 m... Q2H IV Last administered on 12/11/16 17:22 ; Start 12/11/16 at 09:00; Stop 12/11/16 at 14:59; Status DC Furosemide 20 mg 20 mg 1X ONCE IVP Last administered on 12/11/16 11:10; Start 12/11/16 at 10:00; Stop 12/11/16 at 10:03; Status DC Dobutamine HCl/ Dextrose 250 ml @ 0 mls/hr CONT PRN IV SEE I/O RECORD Last administered on 12/11/16 15:05; Start 12/11/16 at 14:45 Magnesium Sulfate/ Dextrose 50 ml @ 25 mls/hr PRN DAILY PRN IV for Mag < 1.7 on am labs; Start 12/12/16 at 08:45; Stop 12/13/16 at 09:57; Status DC Potassium Chloride 50 ml @ 50 mls/hr PRN Q6HRS PRN IV For K < 3.7; Start at 08:45; Stop 12/13/16 at 09:57; Status DC Potassium Chloride (KCl Premix 20meq) 50 ml @ 50 mls/hr PRN Q2HR PRN IV total of 40mEq for K < 3.5; Start 12/12/16 at 08:45; Stop 12/13/16 at 09:57; Status DC Acetylcysteine 1200 mg 1,200 mg BID PO Last administered on 12/13/16 20:50; Start 12/12/16 at 09:00; Stop 12/14/16 at 08:17; Status DC Potassium Chloride (KCl Premix 20meq) 50 ml @ 50 mls/hr Q1H IV Last administered on 12/12/16 13:16; Start 12/12/16 at 09:00; Stop 12/12/16 at 10:59 ; Status DC Lidocaine/Sodium Bicarbonate 20 ml 20 ml STK-MED ONCE IJ ; Start 12/12/16 at 12: 13; Stop 12/12/16 at 12:14; Status DC Heparin Sodium/ Sodium Chloride 500 ml @ As Directed STK-MED ONCE .ROUTE ; Start 12/12/16 at 12:14; Stop 12/12/16 at 12:15; Status DC Lidocaine/Sodium Bicarbonate (Buffered Lidocaine 1%) 3 ml 1X ONCE IJ Last administered on 12/12/16 13:08; Start 12/12/16 at 12:15; Stop 12/12/16 at 12:17 ; Status DC Heparin Sodium (Porcine) 2,500 unit 1X ONCE INT CAT Last administered on 13:08; Start 12/12/16 at 12:15; Stop 12/12/16 at 12:17; Status DC Heparin Sodium/ Sodium Chloride 60 unit 60 unit 1X ONCE IV Last administered on 12/12/16 12:15; Start 12/12/16 at 12:15; Stop 12/12/16 at 12:17; Status DC Heparin Sodium/ Sodium Chloride 1,500 ml @ As Directed STK-MED ONCE .ROUTE ; Start 12/12/16 at 15:03; Stop 12/12/16 at 15:04; Status DC Lidocaine HCl 20 ml STK-MED ONCE .ROUTE ; Start 12/12/16 at 15:03; Stop at 15:04; Status DC Iodixanol (Visipaque 320) 100 ml STK-MED ONCE .ROUTE ; Start 12/12/16 at 15:04; Stop 12/12/16 at 15:05; Status DC Heparin Sodium/ Sodium Chloride 1,000 unit 1X ONCE IART Last administered on 15:41; Start 12/12/16 at 15:30; Stop 12/12/16 at 15:32; Status DC Iodixanol (Visipaque 320) 100 ml 1X ONCE IART Last administered on 12/12/16 15:41; Start 12/12/16 at 15:30; Stop 12/12/16 at 15:32; Status DC Lidocaine HCl 4 ml 4 ml 1X ONCE IJ Last administered on 12/12/16 15:41; Start 12/12/16 at 15:30; Stop 12/12/16 at 15:32; Status DC Potassium Chloride 50 ml @ 50 mls/hr 1X ONCE IV Last administered on 04:13; Start 12/13/16 at 04:15; Stop 12/13/16 at 05:14; Status DC Potassium Chloride 50 ml @ 50 mls/hr 1X ONCE IV Last administered on 03:13; Start 12/13/16 at 03:15; Stop 12/13/16 at 04:14; Status DC Potassium Chloride 50 ml @ 50 mls/hr Q1H IV ; Start 12/13/16 at 09:00; Stop at 09:00; Status DC Furosemide 100 mg/ Sodium Chloride 100 ml @ 0 mls/hr CONT PRN IV SEE I/O RECORD Last administered on 12/13/16t 11:43; Start 12/13/16 at 10:00; Stop 12/14 at 08:17; Status DC Magnesium Sulfate/ Dextrose 50 ml @ 25 mls/hr PRN DAILY PRN IV for Mag < 1.7 on am labs; Start 12/13/16 at 10:00 Potassium Chloride 50 ml @ 50 mls/hr PRN Q6HRS PRN IV For K < 3.7 Last administered on 12/15/16t 01:08; Start 12/13/16 at 10:00 Potassium Chloride 50 ml @ 50 mls/hr PRN Q2HR PRN IV total of 40mEq for K < 3.5; Start 12/13/16 at 10:00 Potassium Phosphate 40 mmol/ Sodium Chloride 113.3333 ml @ 52.267 m... PRN 1X PRN IV SEE COMMENTS; Start 12/13/16 at 10:00; Stop 12/13/16 at 23:59; Status DC Sodium Chloride 1,000 ml @ 1,000 mls/hr Q1H PRN IV hypotension; Start 12/13/16 at 14:51; Stop 12/13/16 at 20:50; Status DC Sodium Chloride (Iv Sodium Chloride 0.9% 1000ml Bag) 1,000 ml @ 400 mls/hr Q2H30M PRN IV PATENCY; Start 12/13/16 at 14:51; Stop 12/14/16 at 02:50; Status DC Info (PHARMACY MONITORING -- do not chart) 1 each PRN DAILY PRN MC SEE COMMENTS ; Start 12/13/16 at 15:00; Status UNV Info 1 each 1 each PRN DAILY PRN MC SEE COMMENTS; Start 12/13/16 at 15:00; Stop 12/15/16 at 08:35; Status DC Sodium Phosphate 0.4 mmol/Dextrose 1 ml @ 50 mls/hr BID IV ; Start 12/14/16 at 09:00; Status UNV Albumin Human (Albuminar) 100 ml @ 100 mls/hr TID IV Last administered on 12/15 21:14; Start 12/14/16 at 09:00; Stop 12/15/16 at 21:59; Status DC Darbepoetin Koffi 60 mcg 60 mcg [id number] SQ Last administered on 12/14/16 21:07 ; Start 12/14/16 at 21:00 Sodium Phosphate/ Dextrose 113.3333 ml @ 28.333 m... Q4H IV Last administered on 12/14/16 14:59; Start 12/14/16 at 09:00; Stop 12/14/16 at 16:59; Status DC Info (PHARMACY MONITORING -- do not chart) 1 each PRN DAILY PRN MC SEE COMMENTS ; Start 12/14/16 at 11:00; Status UNV Info 1 each 1 each PRN DAILY PRN MC SEE COMMENTS; Start 12/14/16 at 11:00; Status UNV Albumin Human 200 ml @ 200 mls/hr 1X PRN PRN IV Hypotension; Start 12/14/16 at 13:30; Stop 12/14/16 at 19:00; Status DC Sodium Chloride 1,000 ml @ 1,000 mls/hr Q1H PRN IV hypotension; Start 12/15/16 at 06:32; Stop 12/15/16 at 09:09; Status DC Albumin Human 200 ml @ 200 mls/hr 1X PRN PRN IV Hypotension Last administered on 12/15/16 07:38; Start 12/15/16 at 06:45; Stop 12/15/16 at 12:44; Status DC Sodium Chloride (Iv Sodium Chloride 0.9% 1000ml Bag) 1,000 ml @ 400 mls/hr Q2H30M PRN IV PATENCY; Start 12/15/16 at 06:32; Stop 12/15/16 at 18:31; Status DC Info 1 each 1 each PRN DAILY PRN MC SEE COMMENTS; Start 12/15/16 at 06:45 Piperacillin Sod/ Tazobactam Sod 2.25 gm/Sodium Chloride 50 ml @ 100 mls/hr Q8HRS IV ; Start 12/15/16 at 14:00; Stop 12/15/16 at 14:00; Status DC Piperacillin Sod/ Tazobactam Sod 2.25 gm/Sodium Chloride 50 ml @ 100 mls/hr Q6HRS IV ; Start 12/15/16 at 12:00; Status Cancel Dexmedetomidine HCl 200 mcg/ Sodium Chloride 50 ml @ 0 mls/hr CONT PRN IV PER PROTOCOL Last administered on 12/17/16 18:11; Start 12/16/16 at 12:15; Stop at 07:51; Status DC Sodium Chloride (Iv Sodium Chloride 0.9% 500ml Bag) 500 ml @ 500 mls/hr 1X PRN PRN IV SEE COMMENTS; Start 12/16/16 at 12:15 Atropine Sulfate 0.5 mg 0.5 mg PRN Q5MIN PRN IV SEE COMMENTS; Start 12/16/16 at 12:15 Sodium Chloride 1,000 ml @ 1,000 mls/hr Q1H PRN IV hypotension; Start 12/16/16 at 20:04; Stop 12/17/16 at 02:03; Status DC Albumin Human (Albuminar) 200 ml @ 200 mls/hr 1X PRN PRN IV Hypotension Last administered on 12/16/16 20:30; Start 12/16/16 at 20:15; Stop 12/17/16 at 02:14 ; Status DC Sodium Chloride (Normal Saline Flush) 10 ml 1X PRN PRN IV AP catheter pack; Start 12/16/16 at 20:15; Stop 12/17/16 at 20:14; Status DC Sodium Chloride 10 ml 10 ml 1X PRN PRN IV [employer] catheter pack; Start 12/16/16 at 20:15; Stop 12/17/16 at 20:14; Status DC Sodium Chloride (Iv Sodium Chloride 0.9% 1000ml Bag) 1,000 ml @ 400 mls/hr Q2H30M PRN IV PATENCY; Start 12/16/16 at 20:04; Stop 12/17/16 at 08:03; Status DC Info (PHARMACY MONITORING -- do not chart) 1 each PRN DAILY PRN MC SEE COMMENTS ; Start 12/16/16 at 20:15; Status UNV Info (PHARMACY MONITORING -- do not chart) 1 each PRN DAILY PRN MC SEE COMMENTS ; Start 12/16/16 at 20:15; Status UNV Enoxaparin Sodium 40 mg 40 mg Q24H SQ Last administered on 12/18/16 16:19; Start 12/17/16 at 16:00; Stop 12/19/16 at 07:31; Status DC Albumin Human (Albuminar) 100 ml @ 100 mls/hr 1X ONCE IV ; Start 12/17/16 at 20:00; Stop 12/17/16 at 20:59; Status DC Heparin Sodium (Porcine) 5,000 unit Q12HR SQ Last administered on 12/21/16 09: 55; Start 12/19/16 at 09:00 Furosemide 40 mg 40 mg 1X ONCE IVP Last administered on 12/19/16 08:13; Start 12/19/16 at 08:00; Stop 12/19/16 at 08:01; Status DC Potassium Chloride (KCl Premix 20meq) 50 ml @ 25 mls/hr Q2H IV Last administered on 12/19/16 08:16; Start 12/19/16 at 08:30; Stop 12/19/16 at 10:29 ; Status DC Lorazepam (Ativan) 2 mg STK-MED ONCE .ROUTE ; Start 12/19/16 at 10:51; Stop at 10:52; Status DC Lorazepam (Ativan) 4 mg 1X ONCE IV Last administered on 12/19/16 11:15; Start 12/19/16 at 11:15; Stop 12/19/16 at 11:16; Status DC Lorazepam (Ativan) 2 mg PRN Q2HRS PRN IV Seizure Last administered on 12:22; Start 12/19/16 at 11:30 Lorazepam (Ativan) 4 mg PRN Q2HRS PRN IV Seizure; Start 12/19/16 at 11:30 Hydralazine HCl (Apresoline) 10 mg PRN Q4HRS PRN IVP ELEVATED BP, SEE COMMENTS ; Start 12/19/16 at 12:00 Info (PHARMACY MONITORING -- do not chart) 1 each PRN DAILY PRN MC SEE COMMENTS ; Start 12/19/16 at 14:00; Status UNV Info (PHARMACY MONITORING -- do not chart) 1 each PRN DAILY PRN MC SEE COMMENTS ; Start 12/19/16 at 14:00; Status UNV Lorazepam 1 mg 1 mg PRN Q4HRS PRN IV ANXIETY / AGITATION; Start 12/19/16 at 16: 30 Levetiracetam/ Sodium Chloride (Keppra/Iv Sodium Chloride 0.9% 100ml) 105 ml @ 400 mls/hr Q12HR IV Last administered on 12/21/16 09:44; Start 12/19/16 at 17: 00 Lorazepam 2 mg 2 mg PRN Q4HRS PRN IV ANXIETY / AGITATION Last administered on 16:01; Start 12/19/16 at 16:30 Amino Acids/ Glycerin/ Electrolytes (Procalamine) 1,000 ml @ 80 mls/hr [id number] IV Last administered on 12/21/16 00:03; Start 12/20/16 at 11:00 Barium Sulfate (Varibar Honey) 250 ml 1X ONCE PO ; Start 12/20/16 at 14:00; Stop 12/20/16 at 14:07; Status DC Barium Sulfate (Varibar Thin Liquid) 148 gm 1X ONCE PO Last administered on 15:17; Start 12/20/16 at 15:15; Stop 12/20/16 at 15:16; Status DC Active Scripts Active Ultram (Tramadol Hcl) 50 Mg Tablet 50 Mg PO Q6H PRN Robaxin (Methocarbamol) 500 Mg Tablet 500 Mg PO QID Reported Percocet 5-325 Mg Tablet (Oxycodone/Acetaminophen) 1 Each Tablet 1-2 Tab PO Q4HRS Vitals/I & O Vital Sign - Last 24 Hours 12/20/16 12/20/16 12/20/16 12/20/16 19:00 19:10 19:40 23:20 Temp 98.7 98.2 98.7 98.2 Pulse 83 76 Resp 18 22 B/P 131/77 141/81 Pulse Ox 97 98 100 O2 Delivery Nasal Cannula Nasal Cannula Nasal Cannula Nasal Cannula O2 Flow Rate 8.0 8.0 8.0 8.0 12/21/16 12/21/16 12/21/16 12/21/16 03:58 07:08 08:44 08:44 Temp 97.8 98.1 97.8 98.1 Pulse 76 88 Resp 16 21 B/P 132/72 131/71 Pulse Ox 98 97 98 98 O2 Delivery Nasal Cannula Nasal Cannula Nasal Cannula Nasal Cannula O2 Flow Rate 8.0 8.0 8.0 8.0 12/21/16 10:10 Temp 98.1 98.1 Pulse 81 Resp 18 B/P 116/65 Pulse Ox 95 O2 Delivery Nasal Cannula O2 Flow Rate 8.0 Intake and Output 12/20/16 12/20/16 12/21/16 15:00 23:00 07:00 Intake Total 105 ml 292.08 ml 0 ml Output Total 0 ml 100 ml Balance 105 ml 292.08 ml -100 ml TARA JEFFERSON MD Dec 21, 2016 12:53
--- NOTE | 2016-12-21 13:42 | PDOC ---
PROGRESS NOTES Assessment Assessment Seizures, provoked. Cocaine, Cannabinoids, opiates, benzo positive in system. 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 Metabolic encephalopathy. Respiratory failure. Sepsis likely. Renal failure on dialysis. Bilateral pulmonary infiltrate. CVA symptoms but no evidence of acute CVA this time. RECOMMENDATIONS/PLAN: Ativan 1 -2 mg IV PRN q4h for seizures. Decrease Keppra to 250 mg bid and taper it off in 2 weeks. Hos seizures were not epileptic. Treat medical diseases. Patient education for substances and drugs abstinence. Discussed in detail with his in am and his daughters in pm at bedside in ICU. Brain MRI 12/19: No acute CVA. EEG on 12/19: No seizure activity except the posterior dominant rhythm is slow for his age. HISTORY OF THE PRESENT ILLNESS: This is a 51-y-old AA male patient who was initailly admitted into the hospital due to medical diseases. He was intubated since but extubated on 12/18. He had several brief seizures or seizure like episodes and over night described as eye open, stiffness with some shaking movements for 20 seconds to 1 minute. He also had speech slurring and speech problems from time to time per nurse. No focalized motor deficits noted. He had episodes of so called aphasia, but he was able to write clearly. He resumed talking after talking to him. No seizure like episodes after 12/19. PAST MEDICAL HISTORY: Please see above. PAST SURGERY HISTORY: No major surgery recently. ALLERGY: Reviewed. MEDICATIONS: Refer to [facility] FAMILY HISTORY: Non contributory. SOCIAL HISTORY: Lives with his family. Smoking, drinking, and illicit drug use. Cocaine, Cannabinoids, benzo, opiates positive in system. He uses drugs on regular basis. REVIEW OF SYSTEMS: Constitutional: Malnutrition. Head: No recent traumatic brain or head injury. Skin: No edema, or rash. Ear: No infection, tinnitus. Eyes: No vision loss or color blindness. Nose: No bleeding or purulent discharges. Hearing: No hearing decrease. Neck: No injury.. Cardiac: No [place], arrhythmia Pulmonary: Pneumonia this time. GI: No GI ulcer, GI bleeding. Urinary/genital: Renal failure this time. Endocrinologic: No cousin face, craniofacial dysmorphism, polydactyly Skeletomuscular: Generalized weakness. Neurological: see HP. Psychiatric: Drug use/abuse. Otherwise, not [id number] review of systems. PHYSICAL EXAMINATION: General appearance is in subacute distress. HEENT: Normocephalic and nontraumatic. Eyes, nose, ears, and throat are unremarkable. Neck is supple. No lymphadenopathy. No bruits are heard over the carotid artery. No crepitus. Cardiovascular: S1, S2, regular rate and rhythm. Pulmonary: Decreased to auscultation bilaterally. Abdomen: Bowel sounds are positive. Extremities: No rash, lesions, or edema. No restriction of range of motion NEUROLOGICAL EXAMINATION: Awake. He speaks clearly at exam. Partially oriented to time, and knows place and person. PERRL. EOMI. CN: no focal findings. Muscle tone: within normal. Muscle strength: 5 DTR: 2 Plantar reflex: Flexor response bilaterally Gait: not examined in bed. Sensory exam: no abnormal findings. No obvious cerebellar signs elicited. F-T-N test not examed. Objective Objective Vital Signs Date Time Temp Pulse Resp B/P Pulse Ox O2 Delivery O2 Flow Rate FiO2 12/21/16 10:10 98.1 81 18 116/65 95 Nasal Cannula 8.0 98.1 Intake and Output 12/21/16 07:00 Intake Total 397.08 ml Output Total 100 ml Balance 297.08 ml Intake Oral 0 ml IV Total 397.08 ml Output Urine Total 100 ml Vitals Signs Vitals VS - Last 72 Hours, by Label Date Time Temp Pulse Resp B/P Pulse Ox O2 Delivery O2 Flow Rate FiO2 12/21/16 10:10 98.1 81 18 116/65 95 Nasal Cannula 8.0 98.1 12/21/16 08:44 98 Nasal Cannula 8.0 12/21/16 08:44 98 Nasal Cannula 8.0 12/21/16 08:00 Nasal Cannula 8.0 12/21/16 07:08 98.1 88 21 131/71 97 Nasal Cannula 8.0 98.1 12/21/16 03:58 97.8 76 16 132/72 98 Nasal Cannula 8.0 97.8 12/20/16 23:20 98.2 76 22 141/81 100 Nasal Cannula 8.0 98.2 12/20/16 19:40 98 Nasal Cannula 8.0 12/20/16 19:10 Nasal Cannula 8.0 12/20/16 19:00 98.7 83 18 131/77 97 Nasal Cannula 8.0 98.7 12/20/16 11:54 100 Nasal Cannula 8.0 12/20/16 11:14 Nasal Cannula 8.0 12/20/16 10:57 Nasal Cannula 8.0 12/20/16 10:52 98.1 82 18 135/75 100 Nasal Cannula 98.1 12/20/16 07:56 Nasal Cannula 8.0 12/20/16 07:00 98.1 81 17 140/74 99 Nasal Cannula 98.1 Laboratory Laboratory Laboratory Tests Test 12/21/16 04:30 White Blood Count 25.1x10^3/uL (4.0-11.0) Red Blood Count 3.18x10^6/uL (4.30-5.70) Hemoglobin 9.3g/dL (13.0-17.5) Hematocrit 29.5% (39.0-53.0) Mean Corpuscular Volume 93fL (79-100) Mean Corpuscular Hemoglobin 29pg (25-35) Mean Corpuscular Hemoglobin Concent 31g/dL (31-37) Red Cell Distribution Width 14.6% (11.5-14.5) Platelet Count 511x10^3/uL (140-400) Neutrophils (%) (Auto) 75% (31-73) Lymphocytes (%) (Auto) 9% (24-48) Monocytes (%) (Auto) 14% (0-9) Eosinophils (%) (Auto) 0% (0-3) Basophils (%) (Auto) 1% (0-3) Neutrophils # (Auto) 18.8x10^3uL (1.8-7.7) Lymphocytes # (Auto) 2.3x10^3/uL (1.0-4.8) Monocytes # (Auto) 3.6x10^3/uL (0.0-1.1) Eosinophils # (Auto) 0.0x10^3/uL (0.0-0.7) Basophils # (Auto) 0.3x10^3/uL (0.0-0.2) Sodium Level 144mmol/L (136-145) Potassium Level 3.7mmol/L (3.5-5.1) Chloride Level 105mmol/L (98-107) Carbon Dioxide Level 21mmol/L (21-32) Anion Gap 18 (6-14) Blood Urea Nitrogen 52mg/dL (8-26) Creatinine 5.2mg/dL (0.7-1.3) Estimated GFR (Cockcroft-Gault) 14.3 Glucose Level 98mg/dL (70-99) Calcium Level 9.8mg/dL (8.5-10.1) Microbiology 12/07/16 Blood Culture - Final, Complete NO GROWTH AFTER 5 DAYS 12/07/16 Stool Culture - Final, Complete 12/07/16 Stool Culture Result 1 (NEFTALI) - Final, Complete 12/07/16 Campylobacter Antigen Assay - Final, Complete 12/07/16 Campylobactor Result 1 - Final, Complete 12/07/16 Shiga Toxin Test - Final, Complete 12/12/16 AFB Specimen Processing Tissue - Final, Resulted 12/12/16 Acid Fast Bacilli Culture, Resulted Pending 12/12/16 Gram Stain - Final, Resulted 12/12/16 Fungal Culture - Preliminary, Resulted 12/12/16 Fungal Culture Result 1 - Preliminary, Resulted 12/12/16 Urine Culture - Final, Complete 12/12/16 Urine Culture Result 1 (NEFTALI) - Final, Complete Medication Medications Current Medications Barium Sulfate (Varibar Honey) 250 ml 1X ONCE PO ; Start 12/20/16 at 14:00; Stop 12/20/16 at 14:07; Status DC Barium Sulfate (Varibar Thin Liquid) 148 gm 1X ONCE PO Last administered on t 15:17; Start 12/20/16 at 15:15; Stop 12/20/16 at 15:16; Status DC Comment Review of Relevant I have reviewed the following items immanuel (where applicable) has been applied. COLLETTE MOYER MD Dec 21, 2016 13:42
[2016-12-21 14:17] VITALS: BP 138/77
[2016-12-21] MEDS ORDERED: DIALYSIS PATIENT. MC PRN ×2 (19:45)
[2016-12-21] MEDS ORDERED: 0.9 % SODIUM CHLORIDE 10 ML DISP.SYRIN. IV PRN ×2 (19:45)
[2016-12-21 22:27] VITALS: BP 115/70
[2016-12-21] MEDS: LEVETIRACETAM 250 MG TABLET. PO SCH (22:29)
[2016-12-21] MEDS: FAMOTIDINE 20 MG/2 ML VIAL IVP SCH (22:29)
[2016-12-21] MEDS: DARBEPOETIN ALFA 60 MCG/0.3 ML DISP.SYRIN. SQ SCH (22:29)
[2016-12-22 03:06] VITALS: BP 96/60
[2016-12-22] MEDS: AA 3%/ELECTROLYTE-TPN SOLN/GLY 1,000 ML IV SCH (04:52)
[2016-12-22 05:42] LABS: CALCIUM 9.5 mg/dL (8.5-10.1); CREATININE 3.8 mg/dL (0.7-1.3); GFR 20.6
[2016-12-22] MEDS: BUDESONIDE 0.5 MG/2 ML NEBU NEB SCH ×2 (06:57→20:56)
[2016-12-22] MEDS: IPRATROPIUM BROMIDE 0.5 MG/2.5 ML NEBU. NEB SCH ×4 (06:57→20:55)
[2016-12-22 07:33] VITALS: BP 95/57
[2016-12-22] MEDS ORDERED: IV NORMAL SALINE 1000ML BAG 1,000 ML IV PRN (08:36)
[2016-12-22] MEDS ORDERED: ALBUMIN HUMAN 25% 200 ML IV PRN (08:45)
[2016-12-22] MEDS ORDERED: LABETALOL 20 MG/4 ML DISP.SYRIN. IVP PRN (08:45)
[2016-12-22] MEDS ORDERED: DIALYSIS PATIENT. MC PRN (08:45)
[2016-12-22] MEDS ORDERED: ACETAMINOPHEN 500 MG TABLET PO PRN (08:45)
[2016-12-22] MEDS ORDERED: CLONIDINE HCL 0.1 MG TABLET PO PRN (08:45)
[2016-12-22] MEDS ORDERED: DIPHENHYDRAMINE 50 MG/ML VIAL IV PRN ×2 (08:45)
--- NOTE | 2016-12-22 10:27 | PDOC ---
Renal-Progress Notes Subjective Notes Notes WANTS TO LEAVE. TOLD HIM HE IS TOO ILL TO LEAVE AND HAS MANY UNRESOLVED ACUTE MEDICAL ISSUES History of Present Illness Hx of present illness STABLE Vitals Vitals Vital Signs Date Time Temp Pulse Resp B/P Pulse Ox O2 Delivery O2 Flow Rate FiO2 12/22/16 08:00 Nasal Cannula 8.0 12/22/16 07:33 97.5 89 17 95/57 95 97.5 Weight Weight [ ] I.O. Intake and Output Intake and Output 12/22/16 07:00 Intake Total 960 ml Output Total 500 ml Balance 460 ml Intake Oral 0 ml Tube Feeding 785 ml Other 175 ml Output Urine Total 500 ml # Voids 2 Labs Labs Laboratory Tests Test 12/22/16 04:30 Sodium Level 137mmol/L (136-145) Potassium Level 4.0mmol/L (3.5-5.1) Chloride Level 99mmol/L (98-107) Carbon Dioxide Level 26mmol/L (21-32) Anion Gap 12 (6-14) Blood Urea Nitrogen 34mg/dL (8-26) Creatinine 3.8mg/dL (0.7-1.3) Estimated GFR (Cockcroft-Gault) 20.6 Glucose Level 119mg/dL (70-99) Calcium Level 9.5mg/dL (8.5-10.1) Micro Micro Microbiology 12/07/16 Blood Culture - Final, Complete NO GROWTH AFTER 5 DAYS 12/07/16 Stool Culture - Final, Complete 12/07/16 Stool Culture Result 1 (NEFTALI) - Final, Complete 12/07/16 Campylobacter Antigen Assay - Final, Complete 12/07/16 Campylobactor Result 1 - Final, Complete 12/07/16 Shiga Toxin Test - Final, Complete 12/12/16 AFB Specimen Processing Tissue - Final, Resulted 12/12/16 Acid Fast Bacilli Culture, Resulted Pending 12/12/16 Gram Stain - Final, Resulted 12/12/16 Fungal Culture - Preliminary, Resulted 12/12/16 Fungal Culture Result 1 - Preliminary, Resulted 12/12/16 Urine Culture - Final, Complete 12/12/16 Urine Culture Result 1 (NEFTALI) - Final, Complete Review of Systems Constitutional: yes: alert, oriented, weakness Ears/Nose/Throat: Yes: no symptom reported Eyes: Yes: no symptom reported Pulmonary: Yes no symptom reported Cardiovascular: Yes no symptom reported Gastrointestional: Yes: no symptom reported Genitourinary: Yes: no symptom reported Musculoskeletal: Yes: muscle atrophy, muscle stiffness Physical Exam General Appearance: no apparent distress Skin: warm Respiratory: decreased breath sounds Heart: S1S2, RRR Abdomen: soft, bowel sounds present Genitourinary: bladder flat Neurology: alert, oriented, other (agitated) Assessment Assessment IMP AHSLEY-NO IMPROVEMENT IN CLEARANCE ANEMIA LEUCOCYTOSIS PNEUMONIA SEIZURE DYSPHAGIA DECONDITIONING PLAN CONT ANTIBIOTICS STOP PPN CONT WITH TF HD TODAY UF TO DW INCREASE ACTIVITY WILL FOLLOW BLUE RICHARDSON MD Dec 22, 2016 10:27
[2016-12-22] MEDS: LEVETIRACETAM 250 MG TABLET. PO SCH ×2 (12:35→20:32)
[2016-12-22] MEDS: ASPIRIN 81 MG TAB.CHEW PO SCH (12:35)
[2016-12-22] MEDS: HEPARIN PF for SUB-Q USE 5,000 UNIT/0.5 ML VIAL. SQ SCH ×2 (12:36→20:40)
--- NOTE | 2016-12-22 14:16 | PDOC ---
PROGRESS NOTES Chief Complaint Chief Complaint Encephalopathy, delirium, dysphagia Chief Complaint: - Weakness, dehydration - Cardiac arrest PEA (12/08); TTE EF of 30-35% - Acute respiratory failure, likely multifactorial; On mechanical Ventilation ( 12/08)- possible aspiration pneumonia. Possible ARDS vs pulmonary edema vs PNA - ASHLEY - vasomotor - on admit, Septic shock, multiorgan failure, out of ICU, better, - Cardiomyopathy - Metabolic acidosis - Polysubstance abuse, cocaine cardiomyopathy - Elevated troponin - Hypocalcemia. History of Present Illness History of Present Illness pt more alert today more agreeable swallow study again X3/week? will follow discussed for 45 minutes with pt last night 9pm, daughter was on phone conference call, total hx and progresss andplan reviewed at length Vitals Vitals Vital Signs Date Time Temp Pulse Resp B/P Pulse Ox O2 Delivery O2 Flow Rate FiO2 12/22/16 12:00 99 Nasal Cannula 6.0 12/22/16 07:33 97.5 89 17 95/57 97.5 Physical Exam Physical Exam General: Alert, Cooperative, No acute distress, Other (follows commands most of the time, ) Heart: Regular rate, No murmurs, Other (HR reg) Lungs: Clear Abdomen: Normal bowel sounds, Soft Extremities: No clubbing, No cyanosis Skin: No rashes, No significant lesion, Other ( ) Labs LABS Laboratory Tests Test 12/22/16 04:30 Sodium Level 137mmol/L (136-145) Potassium Level 4.0mmol/L (3.5-5.1) Chloride Level 99mmol/L (98-107) Carbon Dioxide Level 26mmol/L (21-32) Anion Gap 12 (6-14) Blood Urea Nitrogen 34mg/dL (8-26) Creatinine 3.8mg/dL (0.7-1.3) Estimated GFR (Cockcroft-Gault) 20.6 Glucose Level 119mg/dL (70-99) Calcium Level 9.5mg/dL (8.5-10.1) Review of Systems Review of Systems hungry, wants to go out Assessment and Plan Assessmemt and Plan Problems Medical Problems: (1) ARF (acute renal failure) Status: Acute (2) CAP (community acquired pneumonia) Status: Acute Problems: Comment Review of Relevant I have reviewed the following items immanuel (where applicable) has been applied. Labs Laboratory Tests Test 12/21/16 04:30 12/22/16 04:30 White Blood Count 25.1x10^3/uL (4.0-11.0) Red Blood Count 3.18x10^6/uL (4.30-5.70) Hemoglobin 9.3g/dL (13.0-17.5) Hematocrit 29.5% (39.0-53.0) Mean Corpuscular Volume 93fL (79-100) Mean Corpuscular Hemoglobin 29pg (25-35) Mean Corpuscular Hemoglobin Concent 31g/dL (31-37) Red Cell Distribution Width 14.6% (11.5-14.5) Platelet Count 511x10^3/uL (140-400) Neutrophils (%) (Auto) 75% (31-73) Lymphocytes (%) (Auto) 9% (24-48) Monocytes (%) (Auto) 14% (0-9) Eosinophils (%) (Auto) 0% (0-3) Basophils (%) (Auto) 1% (0-3) Neutrophils # (Auto) 18.8x10^3uL (1.8-7.7) Lymphocytes # (Auto) 2.3x10^3/uL (1.0-4.8) Monocytes # (Auto) 3.6x10^3/uL (0.0-1.1) Eosinophils # (Auto) 0.0x10^3/uL (0.0-0.7) Basophils # (Auto) 0.3x10^3/uL (0.0-0.2) Sodium Level 144mmol/L (136-145) 137mmol/L (136-145) Potassium Level 3.7mmol/L (3.5-5.1) 4.0mmol/L (3.5-5.1) Chloride Level 105mmol/L (98-107) 99mmol/L (98-107) Carbon Dioxide Level 21mmol/L (21-32) 26mmol/L (21-32) Anion Gap 18 (6-14) 12 (6-14) Blood Urea Nitrogen 52mg/dL (8-26) 34mg/dL (8-26) Creatinine 5.2mg/dL (0.7-1.3) 3.8mg/dL (0.7-1.3) Estimated GFR (Cockcroft-Gault) 14.3 20.6 Glucose Level 98mg/dL (70-99) 119mg/dL (70-99) Calcium Level 9.8mg/dL (8.5-10.1) 9.5mg/dL (8.5-10.1) Laboratory Tests Test 12/22/16 04:30 Sodium Level 137mmol/L (136-145) Potassium Level 4.0mmol/L (3.5-5.1) Chloride Level 99mmol/L (98-107) Carbon Dioxide Level 26mmol/L (21-32) Anion Gap 12 (6-14) Blood Urea Nitrogen 34mg/dL (8-26) Creatinine 3.8mg/dL (0.7-1.3) Estimated GFR (Cockcroft-Gault) 20.6 Glucose Level 119mg/dL (70-99) Calcium Level 9.5mg/dL (8.5-10.1) Microbiology 12/07/16 Blood Culture - Final, Complete NO GROWTH AFTER 5 DAYS 12/07/16 Stool Culture - Final, Complete 12/07/16 Stool Culture Result 1 (NEFTALI) - Final, Complete 12/07/16 Campylobacter Antigen Assay - Final, Complete 12/07/16 Campylobactor Result 1 - Final, Complete 12/07/16 Shiga Toxin Test - Final, Complete 12/12/16 AFB Specimen Processing Tissue - Final, Resulted 12/12/16 Acid Fast Bacilli Culture, Resulted Pending 12/12/16 Gram Stain - Final, Resulted 12/12/16 Fungal Culture - Preliminary, Resulted 12/12/16 Fungal Culture Result 1 - Preliminary, Resulted 12/12/16 Urine Culture - Final, Complete 12/12/16 Urine Culture Result 1 (NEFTALI) - Final, Complete Medications Current Medications Ketorolac Tromethamine 30 mg 30 mg 1X ONCE IV Last administered on 12/07/16 14:34; Start 12/07/16 at 14:30; Stop 12/07/16 at 14:31; Status DC Sodium Chloride 1,000 ml @ 1,000 mls/hr 1X ONCE IV Last administered on 14:34; Start 12/07/16 at 14:30; Stop 12/07/16 at 15:29; Status DC Ceftriaxone Sodium 1 gm/ Sodium Chloride 50 ml @ 100 mls/hr Q24H IV ; Start at 15:30; Stop 12/08/16 at 15:30; Status DC Azithromycin 250 ml @ 250 mls/hr 1X ONCE IV Last administered on 12/07/16 15 :48; Start 12/07/16 at 15:15; Stop 12/07/16 at 16:14; Status DC Sodium Chloride 1,000 ml @ 1,000 mls/hr 1X ONCE IV Last administered on 16:09; Start 12/07/16 at 15:15; Stop 12/07/16 at 16:14; Status DC Ceftriaxone Sodium 50 ml @ 100 mls/hr 1X ONCE IV Last administered on 15:29; Start 12/07/16 at 15:15; Stop 12/07/16 at 15:44; Status DC Sodium Chloride (Iv Sodium Chloride 0.9% 1000ml Bag) 1,000 ml @ 150 mls/hr 1X ONCE IV Last administered on 12/07/16 18:10; Start 12/07/16 at 15:15; Stop 11/11 at 21:54; Status DC Famotidine (Pepcid) 20 mg 1X ONCE IVP Last administered on 12/07/16 15:48; Start 12/07/16 at 15:45; Stop 12/07/16 at 15:46; Status DC Ondansetron HCl 4 mg 4 mg 1X ONCE IV Last administered on 12/07/16 16:09; Start 12/07/16 at 16:15; Stop 12/07/16 at 16:16; Status DC Sodium Chloride (Iv Sodium Chloride 0.9% 1000ml Bag) 1,000 ml @ 150 mls/hr Q6H40M IV Last administered on 12/08/16 06:38; Start 12/07/16 at 16:30; Stop 12/08/16 at 14:21; Status DC Ondansetron HCl (Zofran) 4 mg PRN Q6HRS PRN IV NAUSEA/VOMITING Last administered on 12/19/16 02:59; Start 12/07/16 at 16:30 Acetaminophen (Tylenol) 500 mg PRN Q6HRS PRN PO MILD PAIN / TEMP Last administered on 12/09/16 15:04; Start 12/07/16 at 16:30 Morphine Sulfate 2 mg PRN Q2HR PRN IV PAIN Last administered on 12/08/16 05:28 ; Start 12/07/16 at 16:30 Zolpidem Tartrate (Ambien) 5 mg PRN QHS PRN PO INSOMNIA Last administered on 01:06; Start 12/07/16 at 16:30; Stop 12/08/16 at 10:03; Status DC Methocarbamol (Robaxin) 500 mg QID PO Last administered on 12/07/16 21:19; Start 12/07/16 at 17:00; Stop 12/08/16 at 10:03; Status DC Oxycodone/ Acetaminophen (Percocet 5/325) 1 tab PRN Q4HRS PRN PO SEVERE PAIN; Start 12/07/16 at 16:30 Tramadol HCl (Ultram) 50 mg PRN Q6HRS PRN PO MODERATE PAIN Last administered on 12/07/16 17:11; Start 12/07/16 at 16:30 Nicotine (Nicoderm Cq 21mg) 1 patch PRN DAILY PRN TD SMOKING CESSATION; Start 12/07/16 at 16:30 Info (Do NOT chart on this placeholder) 1 each 1X ONCE MC ; Start 12/07/16 at 22:45; Stop 12/07/16 at 22:46; Status UNV Pneumococcal Polyvalent Vaccine (Do NOT chart on this placeholder) 1 each 1X ONCE MC ; Start 12/07/16 at 22:45; Stop 12/07/16 at 22:46; Status UNV Influenza Virus Vaccine Quadrival (Fluarix Quad [id number] Syringe) 0.5 ml ONCE ONCE VAX IM ; Start 12/08/16 at 09:00; Stop 12/08/16 at 09:01; Status DC Pneumococcal Polyvalent Vaccine (Pneumovax 23) 0.5 ml ONCE ONCE VAX IM ; Start 12/08/16 at 09:00; Stop 12/08/16 at 09:01; Status DC Labetalol HCl (Normodyne) 10 mg 1X ONCE IVP Last administered on 12/08/16 08: 56; Start 12/08/16 at 08:30; Stop 12/08/16 at 08:35; Status DC Alprazolam (Xanax) 0.5 mg 1X ONCE PO Last administered on 12/08/16 08:40; Start 12/08/16 at 08:45; Stop 12/08/16 at 08:46; Status DC Aspirin (Children'S Aspirin) 324 mg 1X ONCE PO Last administered on 12/08/16 13:44; Start 12/08/16 at 09:30; Stop 12/08/16 at 09:31; Status DC Aspirin (Jada Aspirin) 325 mg DAILYWBKFT PO ; Start 12/09/16 at 08:00; Stop at 08:00; Status DC Heparin Sodium (Porcine) 4000 unit 4,000 unit 1X ONCE IV ; Start 12/08/16 at 09 :30; Stop 12/08/16 at 14:21; Status DC Midazolam HCl 100 ml @ As Directed STK-MED ONCE IV ; Start 12/08/16 at 09:52; Stop 12/08/16 at 09:53; Status DC Propofol (Diprivan) 100 ml @ 0 mls/hr CONT PRN IV SEE I/O RECORD Last administered on 12/08/16 23:49; Start 12/08/16 at 10:00; Stop 12/21/16 at 10:34 ; Status DC Famotidine (Pepcid) 20 mg QHS IVP Last administered on 12/21/16 22:29; Start 12/08/16 at 21:00 Heparin Sodium (Porcine) 5000 unit 5,000 unit Q8HRS SQ ; Start 12/08/16 at 14:00 ; Stop 12/08/16 at 14:00; Status DC Norepinephrine Bitartrate 8 mg/ Sodium Chloride 258 ml @ 1.93 mls/hr CONT PRN IV SEE I/O RECORD; Start 12/08/16 at 10:15; Status Cancel Dopamine HCl/ Dextrose 250 ml @ As Directed STK-MED ONCE IV ; Start 12/08/16 at 10:07; Stop 12/08/16 at 10:08; Status DC Norepinephrine Bitartrate 8 mg/ Sodium Chloride 258 ml @ 0 mls/hr CONT PRN IV SEE I/O RECORD Last administered on 12/09/16 08:46; Start 12/08/16 at 10:15; Stop 12/09/16 at 11:47; Status DC Dopamine HCl/ Dextrose 250 ml @ 10.084 mls/ hr CONT PRN IV SEE I/O RECORD Last administered on 12/08/16 10:00; Start 12/08/16 at 10:15; Stop 12/21/16 at 10:35; Status DC Sodium Bicarbonate/ Sodium Chloride (Iv Sodium Chloride 0.45%) 1,050 ml @ 200 mls/hr Q5H15M IV Last administered on 12/09/16 05:11; Start 12/08/16 at 10:30 ; Stop 12/09/16 at 08:28; Status DC Phenylephrine HCl 1 mg STK-MED ONCE IV ; Start 12/08/16 at 10:25; Stop 12/08/16 at 10:26; Status DC Aspirin 300 mg 300 mg 1X ONCE AR ; Start 12/08/16 at 10:45; Stop 12/08/16 at 10 :46; Status DC Sodium Chloride 1,000 ml @ 1,000 mls/hr 1X ONCE IV Last administered on 10:00; Start 12/08/16 at 11:45; Stop 12/08/16 at 12:44; Status DC Sodium Chloride (Iv Sodium Chloride 0.9% 1000ml Bag) 1,000 ml @ 1,000 mls/hr 1X ONCE IV Last administered on 12/08/16 10:00; Start 12/08/16 at 11:45; Stop 12/08/16 at 12:44; Status DC Albuterol/ Ipratropium (Duoneb) 3 ml RTQID NEB Last administered on 12/08/16 19:44; Start 12/08/16 at 12:30; Stop 12/09/16 at 05:17; Status DC Budesonide 0.5 mg 0.5 mg RTBID NEB Last administered on 12/22/16 06:57; Start 12/08/16 at 12:30 Sodium Chloride 1,000 ml @ 1,000 mls/hr 1X ONCE IV Last administered on 11:00; Start 12/08/16 at 12:15; Stop 12/08/16 at 13:14; Status DC Sodium Chloride 1,000 ml @ 1,000 mls/hr 1X ONCE IV Last administered on 11:00; Start 12/08/16 at 12:15; Stop 12/08/16 at 13:14; Status DC Heparin Sodium/ Dextrose 500 ml @ 0 mls/hr CONT PRN IV SEE I/O RECORD Last administered on 12/09/16 13:11; Start 12/08/16 at 12:45; Stop 12/13/16 at 13:10 ; Status DC Heparin Sodium (Porcine) 1,350 unit PRN Q6HRS PRN IV FOR UFH LEVEL LESS THAN 0.2 Last administered on 12/09/16 05:47; Start 12/08/16 at 12:45; Stop at 13:10; Status DC Etomidate (Amidate) 20 mg STK-MED ONCE IV ; Start 12/08/16 at 13:00; Stop at 13:01; Status DC Succinylcholine Chloride 200 mg 200 mg STK-MED ONCE .ROUTE ; Start 12/08/16 at 13:00; Stop 12/08/16 at 13:01; Status DC Piperacillin Sod/ Tazobactam Sod 3.375 gm/Sodium Chloride 50 ml @ 100 mls/hr Q6HRS IV ; Start 12/08/16 at 18:00; Stop 12/08/16 at 18:00; Status DC Vancomycin HCl 1 gm/Sodium Chloride 250 ml @ 250 mls/hr 1X ONCE IV Last administered on 12/08/16 14:21; Start 12/08/16 at 14:00; Stop 12/08/16 at 14:59 ; Status DC Piperacillin Sod/ Tazobactam Sod 2.25 gm/Sodium Chloride 50 ml @ 100 mls/hr Q6HRS IV Last administered on 12/09/16 06:17; Start 12/08/16 at 14:00; Stop at 08:25; Status DC Midazolam HCl 100 ml @ 0 mls/hr CONT PRN IV SEE I/O RECORD Last administered on 12/17/16 04:53; Start 12/08/16 at 10:30; Stop 12/21/16 at 10:36; Status DC Fentanyl Citrate (Fentanyl 600 Mcg/30 ml BI ANALYST) 30 ml @ 0 mls/hr CONT PRN IV PROTOCOL Last administered on 12/17/16 04:54; Start 12/09/16 at 05:15 Fentanyl Citrate (Fentanyl 2ml Vial) 25 mcg PRN Q1HR PRN IV COMM; Start at 05:15 Fentanyl Citrate (Fentanyl 2ml Vial) 50 mcg PRN Q1HR PRN IV COMM Last administered on 12/18/16 21:54; Start 12/09/16 at 05:15 Ipratropium Traver (Atrovent) 0.5 mg RTQID NEB Last administered on 12/22/16 11:59; Start 12/09/16 at 08:00 Aspirin (Children'S Aspirin) 81 mg DAILYWBKFT PO Last administered on 12:35; Start 12/09/16 at 08:00 Chlorhexidine Gluconate 15 ml 15 ml BID MM Last administered on 12/18/16 21:49 ; Start 12/09/16 at 09:00; Stop 12/19/16 at 08:54; Status DC Sodium Bicarbonate 150 meq/Dextrose 1,150 ml @ 100 mls/hr [id number] IV Last administered on 12/10/16 09:34; Start 12/09/16 at 09:00; Stop 12/10/16 at 12:14 ; Status DC Piperacillin Sod/ Tazobactam Sod 3.375 gm/Sodium Chloride 50 ml @ 100 mls/hr Q6HRS IV Last administered on 12/11/16 06:01; Start 12/09/16 at 12:00; Stop at 07:47; Status DC Norepinephrine Bitartrate 16 mg/ Sodium Chloride 266 ml @ 0.99 mls/hr CONT PRN IV SEE I/O RECORD Last administered on 12/09/16 20:36; Start 12/09/16 at 12 :00; Stop 12/21/16 at 10:35; Status DC Doxycycline Hyclate/Dextrose 100 ml @ 50 mls/hr Q12HR IV Last administered on 12/13/16 20:50; Start 12/09/16 at 13:00; Stop 12/14/16 at 08:34; Status DC Atropine Sulfate 0.5 mg STK-MED ONCE .ROUTE ; Start 12/08/16 at 10:30; Stop at 13:18; Status DC Epinephrine HCl 3 mg STK-MED ONCE .ROUTE ; Start 12/08/16 at 10:30; Stop at 13:18; Status DC Calcium Gluconate 1000 mg 1,000 mg 1X ONCE IVP ; Start 12/10/16 at 10:00; Stop 12/10/16 at 10:01; Status UNV Magnesium Sulfate/ Dextrose 50 ml @ 25 mls/hr 1X ONCE IV Last administered on 12/10/16 11:40; Start 12/10/16 at 12:00; Stop 12/10/16 at 13:59; Status DC Calcium Gluconate 1000 mg/Sodium Chloride 110 ml @ 220 mls/hr 1X ONCE IV Last administered on 12/10/16 11:36; Start 12/10/16 at 12:00; Stop 12/10/16 at 12:29; Status DC Magnesium Sulfate/ Dextrose 50 ml @ 25 mls/hr PRN DAILY PRN IV for Mag < 1.7 on am labs; Start 12/10/16 at 12:15; Stop 12/13/16 at 09:57; Status DC Amino Acids/ Glycerin/ Electrolytes 1,000 ml @ 80 mls/hr [id number] IV ; Start at 12:30; Stop 12/10/16 at 12:30; Status DC Albumin Human (Albuminar) 100 ml @ 100 mls/hr TID IV ; Start 12/10/16 at 14:00 ; Stop 12/10/16 at 14:00; Status DC Calcium Gluconate 2000 mg 2,000 mg TID IVP ; Start 12/10/16 at 14:00; Stop 12/10 at 14:00; Status DC Piperacillin Sod/ Tazobactam Sod 2.25 gm/Sodium Chloride 50 ml @ 100 mls/hr Q6HRS IV Last administered on 12/18/16 05:58; Start 12/11/16 at 12:00; Stop at 07:17; Status DC Linezolid (Zyvox Premix) 300 ml @ 300 mls/hr Q12HR IV Last administered on 21:24; Start 12/11/16 at 09:00; Stop 12/18/16 at 07:17; Status DC Info 1 each 1 each PRN DAILY PRN MC SEE COMMENTS Last administered on 08:21; Start 12/11/16 at 08:15; Stop 12/13/16 at 13:13; Status DC Potassium Phosphate/Sodium Chloride (Potassium Phosphate/Iv Sodium Chloride 0.9 % 100ml) 104.5333 ml @ 52.267 m... Q2H IV Last administered on 12/11/16 17:22 ; Start 12/11/16 at 09:00; Stop 12/11/16 at 14:59; Status DC Furosemide 20 mg 20 mg 1X ONCE IVP Last administered on 12/11/16 11:10; Start 12/11/16 at 10:00; Stop 12/11/16 at 10:03; Status DC Dobutamine HCl/ Dextrose 250 ml @ 0 mls/hr CONT PRN IV SEE I/O RECORD Last administered on 12/11/16 15:05; Start 12/11/16 at 14:45 Magnesium Sulfate/ Dextrose 50 ml @ 25 mls/hr PRN DAILY PRN IV for Mag < 1.7 on am labs; Start 12/12/16 at 08:45; Stop 12/13/16 at 09:57; Status DC Potassium Chloride 50 ml @ 50 mls/hr PRN Q6HRS PRN IV For K < 3.7; Start at 08:45; Stop 12/13/16 at 09:57; Status DC Potassium Chloride (KCl Premix 20meq) 50 ml @ 50 mls/hr PRN Q2HR PRN IV total of 40mEq for K < 3.5; Start 12/12/16 at 08:45; Stop 12/13/16 at 09:57; Status DC Acetylcysteine 1200 mg 1,200 mg BID PO Last administered on 12/13/16 20:50; Start 12/12/16 at 09:00; Stop 12/14/16 at 08:17; Status DC Potassium Chloride (KCl Premix 20meq) 50 ml @ 50 mls/hr Q1H IV Last administered on 12/12/16 13:16; Start 12/12/16 at 09:00; Stop 12/12/16 at 10:59 ; Status DC Lidocaine/Sodium Bicarbonate 20 ml 20 ml STK-MED ONCE IJ ; Start 12/12/16 at 12: 13; Stop 12/12/16 at 12:14; Status DC Heparin Sodium/ Sodium Chloride 500 ml @ As Directed STK-MED ONCE .ROUTE ; Start 12/12/16 at 12:14; Stop 12/12/16 at 12:15; Status DC Lidocaine/Sodium Bicarbonate (Buffered Lidocaine 1%) 3 ml 1X ONCE IJ Last administered on 12/12/16 13:08; Start 12/12/16 at 12:15; Stop 12/12/16 at 12:17 ; Status DC Heparin Sodium (Porcine) 2,500 unit 1X ONCE INT CAT Last administered on 13:08; Start 12/12/16 at 12:15; Stop 12/12/16 at 12:17; Status DC Heparin Sodium/ Sodium Chloride 60 unit 60 unit 1X ONCE IV Last administered on 12/12/16 12:15; Start 12/12/16 at 12:15; Stop 12/12/16 at 12:17; Status DC Heparin Sodium/ Sodium Chloride 1,500 ml @ As Directed STK-MED ONCE .ROUTE ; Start 12/12/16 at 15:03; Stop 12/12/16 at 15:04; Status DC Lidocaine HCl 20 ml STK-MED ONCE .ROUTE ; Start 12/12/16 at 15:03; Stop at 15:04; Status DC Iodixanol (Visipaque 320) 100 ml STK-MED ONCE .ROUTE ; Start 12/12/16 at 15:04; Stop 12/12/16 at 15:05; Status DC Heparin Sodium/ Sodium Chloride 1,000 unit 1X ONCE IART Last administered on 15:41; Start 12/12/16 at 15:30; Stop 12/12/16 at 15:32; Status DC Iodixanol (Visipaque 320) 100 ml 1X ONCE IART Last administered on 12/12/16 15:41; Start 12/12/16 at 15:30; Stop 12/12/16 at 15:32; Status DC Lidocaine HCl 4 ml 4 ml 1X ONCE IJ Last administered on 12/12/16 15:41; Start 12/12/16 at 15:30; Stop 12/12/16 at 15:32; Status DC Potassium Chloride 50 ml @ 50 mls/hr 1X ONCE IV Last administered on 04:13; Start 12/13/16 at 04:15; Stop 12/13/16 at 05:14; Status DC Potassium Chloride 50 ml @ 50 mls/hr 1X ONCE IV Last administered on t 03:13; Start 12/13/16 at 03:15; Stop 12/13/16 at 04:14; Status DC Potassium Chloride 50 ml @ 50 mls/hr Q1H IV ; Start 12/13/16 at 09:00; Stop at 09:00; Status DC Furosemide 100 mg/ Sodium Chloride 100 ml @ 0 mls/hr CONT PRN IV SEE I/O RECORD Last administered on 12/13/16 11:43; Start 12/13/16 at 10:00; Stop 12/14 at 08:17; Status DC Magnesium Sulfate/ Dextrose 50 ml @ 25 mls/hr PRN DAILY PRN IV for Mag < 1.7 on am labs; Start 12/13/16 at 10:00 Potassium Chloride 50 ml @ 50 mls/hr PRN Q6HRS PRN IV For K < 3.7 Last administered on 12/15/16t 01:08; Start 12/13/16 at 10:00 Potassium Chloride 50 ml @ 50 mls/hr PRN Q2HR PRN IV total of 40mEq for K < 3.5; Start 12/13/16 at 10:00 Potassium Phosphate 40 mmol/ Sodium Chloride 113.3333 ml @ 52.267 m... PRN 1X PRN IV SEE COMMENTS; Start 12/13/16 at 10:00; Stop 12/13/16 at 23:59; Status DC Sodium Chloride 1,000 ml @ 1,000 mls/hr Q1H PRN IV hypotension; Start 12/13/16 at 14:51; Stop 12/13/16 at 20:50; Status DC Sodium Chloride (Iv Sodium Chloride 0.9% 1000ml Bag) 1,000 ml @ 400 mls/hr Q2H30M PRN IV PATENCY; Start 12/13/16 at 14:51; Stop 12/14/16 at 02:50; Status DC Info (PHARMACY MONITORING -- do not chart) 1 each PRN DAILY PRN MC SEE COMMENTS ; Start 12/13/16 at 15:00; Status UNV Info 1 each 1 each PRN DAILY PRN MC SEE COMMENTS; Start 12/13/16 at 15:00; Stop 12/15/16 at 08:35; Status DC Sodium Phosphate 0.4 mmol/Dextrose 1 ml @ 50 mls/hr BID IV ; Start 12/14/16 at 09:00; Status UNV Albumin Human (Albuminar) 100 ml @ 100 mls/hr TID IV Last administered on 12/15 21:14; Start 12/14/16 at 09:00; Stop 12/15/16 at 21:59; Status DC Darbepoetin Koffi 60 mcg 60 mcg [id number] SQ Last administered on 12/21/16 22:29 ; Start 12/14/16 at 21:00 Sodium Phosphate/ Dextrose 113.3333 ml @ 28.333 m... Q4H IV Last administered on 12/14/16 14:59; Start 12/14/16 at 09:00; Stop 12/14/16 at 16:59; Status DC Info (PHARMACY MONITORING -- do not chart) 1 each PRN DAILY PRN MC SEE COMMENTS ; Start 12/14/16 at 11:00; Status UNV Info 1 each 1 each PRN DAILY PRN MC SEE COMMENTS; Start 12/14/16 at 11:00; Status UNV Albumin Human 200 ml @ 200 mls/hr 1X PRN PRN IV Hypotension; Start 12/14/16 at 13:30; Stop 12/14/16 at 19:00; Status DC Sodium Chloride 1,000 ml @ 1,000 mls/hr Q1H PRN IV hypotension; Start 12/15/16 at 06:32; Stop 12/15/16 at 09:09; Status DC Albumin Human 200 ml @ 200 mls/hr 1X PRN PRN IV Hypotension Last administered on 12/15/16 07:38; Start 12/15/16 at 06:45; Stop 12/15/16 at 12:44; Status DC Sodium Chloride (Iv Sodium Chloride 0.9% 1000ml Bag) 1,000 ml @ 400 mls/hr Q2H30M PRN IV PATENCY; Start 12/15/16 at 06:32; Stop 12/15/16 at 18:31; Status DC Info 1 each 1 each PRN DAILY PRN MC SEE COMMENTS; Start 12/15/16 at 06:45 Piperacillin Sod/ Tazobactam Sod 2.25 gm/Sodium Chloride 50 ml @ 100 mls/hr Q8HRS IV ; Start 12/15/16 at 14:00; Stop 12/15/16 at 14:00; Status DC Piperacillin Sod/ Tazobactam Sod 2.25 gm/Sodium Chloride 50 ml @ 100 mls/hr Q6HRS IV ; Start 12/15/16 at 12:00; Status Cancel Dexmedetomidine HCl 200 mcg/ Sodium Chloride 50 ml @ 0 mls/hr CONT PRN IV PER PROTOCOL Last administered on 12/17/16 18:11; Start 12/16/16 at 12:15; Stop at 07:51; Status DC Sodium Chloride (Iv Sodium Chloride 0.9% 500ml Bag) 500 ml @ 500 mls/hr 1X PRN PRN IV SEE COMMENTS; Start 12/16/16 at 12:15 Atropine Sulfate 0.5 mg 0.5 mg PRN Q5MIN PRN IV SEE COMMENTS; Start 12/16/16 at 12:15 Sodium Chloride 1,000 ml @ 1,000 mls/hr Q1H PRN IV hypotension; Start 12/16/16 at 20:04; Stop 12/17/16 at 02:03; Status DC Albumin Human (Albuminar) 200 ml @ 200 mls/hr 1X PRN PRN IV Hypotension Last administered on 12/16/16 20:30; Start 12/16/16 at 20:15; Stop 12/17/16 at 02:14 ; Status DC Sodium Chloride (Normal Saline Flush) 10 ml 1X PRN PRN IV AP catheter pack; Start 12/16/16 at 20:15; Stop 12/17/16 at 20:14; Status DC Sodium Chloride 10 ml 10 ml 1X PRN PRN IV RAKER BU[employer] WHEEL catheter pack; Start 12/16/16 at 20:15; Stop 12/17/16 at 20:14; Status DC Sodium Chloride (Iv Sodium Chloride 0.9% 1000ml Bag) 1,000 ml @ 400 mls/hr Q2H30M PRN IV PATENCY; Start 12/16/16 at 20:04; Stop 12/17/16 at 08:03; Status DC Info (PHARMACY MONITORING -- do not chart) 1 each PRN DAILY PRN MC SEE COMMENTS ; Start 12/16/16 at 20:15; Status UNV Info (PHARMACY MONITORING -- do not chart) 1 each PRN DAILY PRN MC SEE COMMENTS ; Start 12/16/16 at 20:15; Status UNV Enoxaparin Sodium 40 mg 40 mg Q24H SQ Last administered on 12/18/16 16:19; Start 12/17/16 at 16:00; Stop 12/19/16 at 07:31; Status DC Albumin Human (Albuminar) 100 ml @ 100 mls/hr 1X ONCE IV ; Start 12/17/16 at 20:00; Stop 12/17/16 at 20:59; Status DC Heparin Sodium (Porcine) 5,000 unit Q12HR SQ Last administered on 12/22/16 12: 36; Start 12/19/16 at 09:00 Furosemide 40 mg 40 mg 1X ONCE IVP Last administered on 12/19/16 08:13; Start 12/19/16 at 08:00; Stop 12/19/16 at 08:01; Status DC Potassium Chloride (KCl Premix 20meq) 50 ml @ 25 mls/hr Q2H IV Last administered on 12/19/16 08:16; Start 12/19/16 at 08:30; Stop 12/19/16 at 10:29 ; Status DC Lorazepam (Ativan) 2 mg STK-MED ONCE .ROUTE ; Start 12/19/16 at 10:51; Stop at 10:52; Status DC Lorazepam (Ativan) 4 mg 1X ONCE IV Last administered on 12/19/16 11:15; Start 12/19/16 at 11:15; Stop 12/19/16 at 11:16; Status DC Lorazepam (Ativan) 2 mg PRN Q2HRS PRN IV Seizure Last administered on 23:06; Start 12/19/16 at 11:30 Lorazepam (Ativan) 4 mg PRN Q2HRS PRN IV Seizure; Start 12/19/16 at 11:30 Hydralazine HCl (Apresoline) 10 mg PRN Q4HRS PRN IVP ELEVATED BP, SEE COMMENTS ; Start 12/19/16 at 12:00 Info (PHARMACY MONITORING -- do not chart) 1 each PRN DAILY PRN MC SEE COMMENTS ; Start 12/19/16 at 14:00; Status UNV Info (PHARMACY MONITORING -- do not chart) 1 each PRN DAILY PRN MC SEE COMMENTS ; Start 12/19/16 at 14:00; Status UNV Lorazepam 1 mg 1 mg PRN Q4HRS PRN IV ANXIETY / AGITATION; Start 12/19/16 at 16: 30 Levetiracetam/ Sodium Chloride (Keppra/Iv Sodium Chloride 0.9% 100ml) 105 ml @ 400 mls/hr Q12HR IV Last administered on 12/21/16 09:44; Start 12/19/16 at 17: 00; Stop 12/21/16 at 13:44; Status DC Lorazepam 2 mg 2 mg PRN Q4HRS PRN IV ANXIETY / AGITATION Last administered on 16:01; Start 12/19/16 at 16:30 Amino Acids/ Glycerin/ Electrolytes (Procalamine) 1,000 ml @ 80 mls/hr [id number] IV Last administered on 12/22/16 04:52; Start 12/20/16 at 11:00; Stop at 12:55; Status DC Barium Sulfate (Varibar Honey) 250 ml 1X ONCE PO ; Start 12/20/16 at 14:00; Stop 12/20/16 at 14:07; Status DC Barium Sulfate (Varibar Thin Liquid) 148 gm 1X ONCE PO Last administered on 15:17; Start 12/20/16 at 15:15; Stop 12/20/16 at 15:16; Status DC Levetiracetam (Keppra) 250 mg BID PO Last administered on 12/22/16 12:35; Start 12/21/16 at 21:00 Sodium Chloride (Normal Saline Flush) 10 ml 1X PRN PRN IV AP catheter pack; Start 12/21/16 at 19:45; Stop 12/22/16 at 19:44 Sodium Chloride (Normal Saline Flush) 10 ml 1X PRN PRN IV RAKER BUFFING WHEEL catheter pack; Start 12/21/16 at 19:45; Stop 12/22/16 at 19:44 Info (PHARMACY MONITORING -- do not chart) 1 each PRN DAILY PRN MC SEE COMMENTS ; Start 12/21/16 at 19:45; Status UNV Info 1 each 1 each PRN DAILY PRN MC SEE COMMENTS; Start 12/21/16 at 19:45; Status UNV Sodium Chloride 1,000 ml @ 1,000 mls/hr Q1H PRN IV hypotension; Start 12/22/16 at 08:36; Stop 12/22/16 at 14:35 Albumin Human (Albuminar) 200 ml @ 200 mls/hr 1X PRN PRN IV Hypotension; Start 12/22/16 at 08:45; Stop 12/22/16 at 14:44 Acetaminophen (Tylenol) 500 mg 1X PRN PRN PO MILD PAIN / TEMP; Start 12/22/16 at 08:45; Stop 12/23/16 at 08:44 Diphenhydramine HCl (Benadryl) 25 mg 1X PRN PRN IV ITCHING; Start 12/22/16 at 08:45; Stop 12/23/16 at 08:44 Diphenhydramine HCl (Benadryl) 25 mg 1X PRN PRN IV ITCHING; Start 12/22/16 at 08:45; Stop 12/23/16 at 08:44 Labetalol HCl (Normodyne) 10 mg PRN Q1HR PRN IVP SBP > 180; Start 12/22/16 at 08:45; Stop 12/23/16 at 08:44 Clonidine HCl (Catapres) 0.1 mg 1X PRN PRN PO SBP > 180; Start 12/22/16 at 08: 45; Stop 12/23/16 at 08:44 Info (PHARMACY MONITORING -- do not chart) 1 each PRN DAILY PRN MC SEE COMMENTS ; Start 12/22/16 at 08:45; Status UNV Active Scripts Active Ultram (Tramadol Hcl) 50 Mg Tablet 50 Mg PO Q6H PRN Robaxin (Methocarbamol) 500 Mg Tablet 500 Mg PO QID Reported Percocet 5-325 Mg Tablet (Oxycodone/Acetaminophen) 1 Each Tablet 1-2 Tab PO Q4HRS Vitals/I & O Vital Sign - Last 24 Hours 12/21/16 12/21/16 12/21/16 12/21/16 14:17 16:32 16:32 20:00 Temp 98.1 98.1 Pulse 87 Resp 20 B/P 138/77 Pulse Ox 98 O2 Delivery Nasal Cannula Nasal Cannula Nasal Cannula Nasal Cannula O2 Flow Rate 8.0 8.0 8.0 8.0 12/21/16 12/21/16 12/21/16/27/17 22:15 22:15 22:27 03:06 Temp 97.4 97.2 97.4 97.2 Pulse 94 99 Resp 18 18 B/P 115/70 96/60 Pulse Ox 96 96 O2 Delivery Nasal Cannula Nasal Cannula Nasal Cannula Nasal Cannula O2 Flow Rate 8.0 8.0 8.0 8.0 12/22/16 12/22/16 12/22/16 12/22/16 06:57 07:33 08:00 12:00 Temp 97.5 97.5 Pulse 89 Resp 17 B/P 95/57 Pulse Ox 99 95 99 O2 Delivery Nasal Cannula Nasal Cannula Nasal Cannula Nasal Cannula O2 Flow Rate 8.0 6.0 8.0 6.0 Intake and Output 12/21/16 12/21/16 12/22/16 15:00 23:00 07:00 Intake Total 175 ml 175 ml 610 ml Output Total 150 ml 350 ml Balance 25 ml -175 ml 610 ml TARA JEFFERSON MD Dec 22, 2016 14:16
[2016-12-22 15:00] VITALS: BP 106/64
--- NOTE | 2016-12-22 17:49 | PDOC ---
PROGRESS NOTES Assessment Assessment Seizure, provoked. Cocaine, Cannabinoids, opiates, benzo positive in system. 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 Metabolic encephalopathy. Respiratory failure. Renal failure on dialysis. Bilateral pulmonary infiltrate. CVA symptoms but no evidence of acute CVA this time. RECOMMENDATIONS/PLAN: Ativan 1 -2 mg IV PRN q4h if has seizures. Keppra to 250 mg bid and taper it off in 2 weeks. His seizures were not epileptic. Treat medical diseases. Patient education for substances and drugs abstinence. Discussed in detail with his in all detail again in lengthy time at bedside on 12/22/16. Brain MRI 12/19: No acute CVA. EEG on 12/19: No seizure activity except the posterior dominant rhythm is slow for his age. HISTORY OF THE PRESENT ILLNESS: This is a 51-y-old AA male patient who was initailly admitted into the hospital due to medical diseases. He was intubated since but extubated on 12/18. He had several brief seizures or seizure like episodes and over night described as eye open, stiffness with some shaking movements for 20 seconds to 1 minute. He also had speech slurring and speech problems from time to time per nurse. No focalized motor deficits noted. He had episodes of so called aphasia, but he was able to write clearly. He resumed talking after talking to him. No seizure like episodes since 12/19. PAST MEDICAL HISTORY: Please see above. PAST SURGERY HISTORY: No major surgery recently. ALLERGY: Reviewed. MEDICATIONS: Refer to [facility] FAMILY HISTORY: Non contributory. SOCIAL HISTORY: Lives with his family. Smoking, drinking, and illicit drug use. Cocaine, Cannabinoids, benzo, opiates positive in system. He uses drugs on regular basis. REVIEW OF SYSTEMS: Constitutional: Malnutrition. Head: No recent traumatic brain or head injury. Skin: No edema, or rash. Ear: No infection, tinnitus. Eyes: No vision loss or color blindness. Nose: No bleeding or purulent discharges. Hearing: No hearing decrease. Neck: No injury.. Cardiac: No PR, arrhythmia Pulmonary: Pneumonia this time. GI: No GI ulcer, GI bleeding. Urinary/genital: Renal failure this time. Endocrinologic: No cousin face, craniofacial dysmorphism, polydactyly Skeletomuscular: Generalized weakness. Neurological: see HP. Psychiatric: Drug use/abuse. Otherwise, not [id number] review of systems. PHYSICAL EXAMINATION: General appearance is in subacute distress. HEENT: Normocephalic and nontraumatic. Eyes, nose, ears, and throat are unremarkable. Neck is supple. No lymphadenopathy. No bruits are heard over the carotid artery. No crepitus. Cardiovascular: S1, S2, regular rate and rhythm. Pulmonary: Decreased to auscultation bilaterally. Abdomen: Bowel sounds are positive. Extremities: No rash, lesions, or edema. No restriction of range of motion NEUROLOGICAL EXAMINATION: Awake. He speaks clearly at exam. Partially oriented to time, and knows place and person. PERRL. EOMI. CN: no focal findings. Muscle tone: within normal. Muscle strength: 5 DTR: 2 Plantar reflex: Flexor response bilaterally Gait: not examined in bed. Sensory exam: no abnormal findings. No obvious cerebellar signs elicited. F-T-N test not examed. Objective Objective Vital Signs Date Time Temp Pulse Resp B/P Pulse Ox O2 Delivery O2 Flow Rate FiO2 12/22/16 16:41 Nasal Cannula 4.0 12/22/16 15:00 98.6 88 18 106/64 99 98.6 Intake and Output 12/22/16 07:00 Intake Total 960 ml Output Total 500 ml Balance 460 ml Intake Oral 0 ml Tube Feeding 785 ml Other 175 ml Output Urine Total 500 ml # Voids 2 Vitals Signs Vitals VS - Last 72 Hours, by Label Date Time Temp Pulse Resp B/P Pulse Ox O2 Delivery O2 Flow Rate FiO2 12/22/16 16:41 Nasal Cannula 4.0 12/22/16 15:00 98.6 88 18 106/64 99 Nasal Cannula 4.0 98.6 12/22/16 12:00 99 Nasal Cannula 6.0 12/22/16 08:00 Nasal Cannula 8.0 12/22/16 07:33 97.5 89 17 95/57 95 Nasal Cannula 6.0 97.5 12/22/16 06:57 99 Nasal Cannula 8.0 12/22/16 03:06 97.2 99 18 96/60 96 Nasal Cannula 8.0 97.2 12/21/16 22:27 97.4 94 18 115/70 96 Nasal Cannula 8.0 97.4 12/21/16 22:15 Nasal Cannula 8.0 12/21/16 22:15 Nasal Cannula 8.0 12/21/16 20:00 Nasal Cannula 8.0 12/21/16 16:32 Nasal Cannula 8.0 12/21/16 16:32 98 Nasal Cannula 8.0 12/21/16 14:17 98.1 87 20 138/77 Nasal Cannula 8.0 98.1 12/21/16 10:10 98.1 81 18 116/65 95 Nasal Cannula 8.0 98.1 12/21/16 08:44 98 Nasal Cannula 8.0 12/21/16 08:44 98 Nasal Cannula 8.0 12/21/16 08:00 Nasal Cannula 8.0 12/21/16 07:08 98.1 88 21 131/71 97 Nasal Cannula 8.0 98.1 Laboratory Laboratory Laboratory Tests Test 12/22/16 04:30 Sodium Level 137mmol/L (136-145) Potassium Level 4.0mmol/L (3.5-5.1) Chloride Level 99mmol/L (98-107) Carbon Dioxide Level 26mmol/L (21-32) Anion Gap 12 (6-14) Blood Urea Nitrogen 34mg/dL (8-26) Creatinine 3.8mg/dL (0.7-1.3) Estimated GFR (Cockcroft-Gault) 20.6 Glucose Level 119mg/dL (70-99) Calcium Level 9.5mg/dL (8.5-10.1) Microbiology 12/07/16 Blood Culture - Final, Complete NO GROWTH AFTER 5 DAYS 12/07/16 Stool Culture - Final, Complete 12/07/16 Stool Culture Result 1 (NEFTALI) - Final, Complete 12/07/16 Campylobacter Antigen Assay - Final, Complete 12/07/16 Campylobactor Result 1 - Final, Complete 12/07/16 Shiga Toxin Test - Final, Complete 12/12/16 AFB Specimen Processing Tissue - Final, Resulted 12/12/16 Acid Fast Bacilli Culture, Resulted Pending 12/12/16 Gram Stain - Final, Resulted 12/12/16 Fungal Culture - Preliminary, Resulted 12/12/16 Fungal Culture Result 1 - Preliminary, Resulted 12/12/16 Urine Culture - Final, Complete 12/12/16 Urine Culture Result 1 (NEFTALI) - Final, Complete Medication Medications Current Medications Acetaminophen (Tylenol) 500 mg 1X PRN PRN PO MILD PAIN / TEMP; Start 12/22/16 at 08:45; Stop 12/23/16 at 08:44 Albumin Human (Albuminar) 200 ml @ 200 mls/hr 1X PRN PRN IV Hypotension; Start 12/22/16 at 08:45; Stop 12/22/16 at 14:44; Status DC Clonidine HCl (Catapres) 0.1 mg 1X PRN PRN PO SBP > 180; Start 12/22/16 at 08: 45; Stop 12/23/16 at 08:44 Diphenhydramine HCl (Benadryl) 25 mg 1X PRN PRN IV ITCHING; Start 12/22/16 at 08:45; Stop 12/23/16 at 08:44 Diphenhydramine HCl (Benadryl) 25 mg 1X PRN PRN IV ITCHING; Start 12/22/16 at 08:45; Stop 12/23/16 at 08:44 Info (PHARMACY MONITORING -- do not chart) 1 each PRN DAILY PRN MC SEE COMMENTS ; Start 12/21/16 at 19:45; Status UNV Info (PHARMACY MONITORING -- do not chart) 1 each PRN DAILY PRN MC SEE COMMENTS ; Start 12/22/16 at 08:45; Status UNV Info 1 each 1 each PRN DAILY PRN MC SEE COMMENTS; Start 12/21/16 at 19:45; Status UNV Labetalol HCl (Normodyne) 10 mg PRN Q1HR PRN IVP SBP > 180; Start 12/22/16 at 08:45; Stop 12/23/16 at 08:44 Levetiracetam (Keppra) 250 mg BID PO Last administered on 12/22/16t 12:35; Start 12/21/16 at 21:00 Sodium Chloride 1,000 ml @ 1,000 mls/hr Q1H PRN IV hypotension; Start 12/22/16 at 08:36; Stop 12/22/16 at 14:35; Status DC Sodium Chloride (Normal Saline Flush) 10 ml 1X PRN PRN IV AP catheter pack; Start 12/21/16 at 19:45; Stop 12/22/16 at 19:44 Sodium Chloride (Normal Saline Flush) 10 ml 1X PRN PRN IV MEAT SLICER catheter pack; Start 12/21/16 at 19:45; Stop 12/22/16 at 19:44 Comment Review of Relevant I have reviewed the following items immanuel (where applicable) has been applied. COLLETTE MOYER MD Dec 22, 2016 17:49
[2016-12-22 19:00] VITALS: BP 90/53
[2016-12-22] MEDS: FAMOTIDINE 20 MG/2 ML VIAL IVP SCH (20:31)
[2016-12-22 23:00] VITALS: BP 95/69
[2016-12-23] VITALS (7 sets, daily range): BP systolic 94–138; BP diastolic 57–82
[2016-12-23 07:00] LABS: CALCIUM 9.6 mg/dL (8.5-10.1); POTASSIUM 4.6 mmol/L (3.5-5.1)
[2016-12-23] MEDS: ASPIRIN 81 MG TAB.CHEW PO SCH (08:00)
[2016-12-23] MEDS: BUDESONIDE 0.5 MG/2 ML NEBU NEB SCH ×2 (08:17→19:39)
[2016-12-23] MEDS: IPRATROPIUM BROMIDE 0.5 MG/2.5 ML NEBU. NEB SCH ×4 (08:17→19:39)
[2016-12-23] MEDS: LEVETIRACETAM 250 MG TABLET. PO SCH ×2 (09:00→20:47)
[2016-12-23] MEDS: HEPARIN PF for SUB-Q USE 5,000 UNIT/0.5 ML VIAL. SQ SCH ×2 (09:00→20:56)
--- NOTE | 2016-12-23 09:26 | PDOC ---
PROGRESS NOTES Chief Complaint Chief Complaint Encephalopathy, delirium, dysphagia Dysphagia, post extubation Seizure, provoked. Cardiac arrest PEA (12/08); TTE EF of 30-35% Acute respiratory failure, likely multifactorial; On mechanical Ventilation ()- possible aspiration pneumonia. Possible ARDS vs pulmonary edema vs PNA, resolving. ASHLEY on HD Plan Tube feeds, speech and swallow evaluation HD per nephrology Keppra and ativan seizure precautions d/w cardio before dc History of Present Illness History of Present Illness doing better family at bedside no chest pain no fever Vitals Vitals Vital Signs Date Time Temp Pulse Resp B/P Pulse Ox O2 Delivery O2 Flow Rate FiO2 12/23/16 08:19 95 Nasal Cannula 4.0 12/23/16 07:20 98.5 87 18 102/69 98.5 Physical Exam Physical Exam General: Alert, Cooperative, No acute distress, Other (follows commands most of the time, ) Heart: Regular rate, Normal S1, Normal S2, No murmurs, Other Lungs: Clear Abdomen: Normal bowel sounds, Soft Extremities: No clubbing Skin: Other ( ) Labs LABS Laboratory Tests Test 12/23/16 06:15 Sodium Level 137mmol/L (136-145) Potassium Level 4.6mmol/L (3.5-5.1) Chloride Level 95mmol/L (98-107) Carbon Dioxide Level 28mmol/L (21-32) Anion Gap 14 (6-14) Blood Urea Nitrogen 40mg/dL (8-26) Creatinine 5.0mg/dL (0.7-1.3) Estimated GFR (Cockcroft-Gault) 15.0 Glucose Level 107mg/dL (70-99) Calcium Level 9.6mg/dL (8.5-10.1) Assessment and Plan Assessmemt and Plan Problems Medical Problems: (1) ARF (acute renal failure) Status: Acute (2) CAP (community acquired pneumonia) Status: Acute Problems: Comment Review of Relevant I have reviewed the following items immanuel (where applicable) has been applied. Labs Laboratory Tests Test 12/22/16 04:30 12/23/16 06:15 Sodium Level 137mmol/L (136-145) 137mmol/L (136-145) Potassium Level 4.0mmol/L (3.5-5.1) 4.6mmol/L (3.5-5.1) Chloride Level 99mmol/L (98-107) 95mmol/L (98-107) Carbon Dioxide Level 26mmol/L (21-32) 28mmol/L (21-32) Anion Gap 12 (6-14) 14 (6-14) Blood Urea Nitrogen 34mg/dL (8-26) 40mg/dL (8-26) Creatinine 3.8mg/dL (0.7-1.3) 5.0mg/dL (0.7-1.3) Estimated GFR (Cockcroft-Gault) 20.6 15.0 Glucose Level 119mg/dL (70-99) 107mg/dL (70-99) Calcium Level 9.5mg/dL (8.5-10.1) 9.6mg/dL (8.5-10.1) Laboratory Tests Test 12/23/16 06:15 Sodium Level 137mmol/L (136-145) Potassium Level 4.6mmol/L (3.5-5.1) Chloride Level 95mmol/L (98-107) Carbon Dioxide Level 28mmol/L (21-32) Anion Gap 14 (6-14) Blood Urea Nitrogen 40mg/dL (8-26) Creatinine 5.0mg/dL (0.7-1.3) Estimated GFR (Cockcroft-Gault) 15.0 Glucose Level 107mg/dL (70-99) Calcium Level 9.6mg/dL (8.5-10.1) Microbiology 12/07/16 Blood Culture - Final, Complete NO GROWTH AFTER 5 DAYS 12/07/16 Stool Culture - Final, Complete 12/07/16 Stool Culture Result 1 (NEFTALI) - Final, Complete 12/07/16 Campylobacter Antigen Assay - Final, Complete 12/07/16 Campylobactor Result 1 - Final, Complete 12/07/16 Shiga Toxin Test - Final, Complete 12/12/16 AFB Specimen Processing Tissue - Final, Resulted 12/12/16 Acid Fast Bacilli Culture, Resulted Pending 12/12/16 Gram Stain - Final, Resulted 12/12/16 Fungal Culture - Preliminary, Resulted 12/12/16 Fungal Culture Result 1 - Preliminary, Resulted 12/12/16 Urine Culture - Final, Complete 12/12/16 Urine Culture Result 1 (NEFTALI) - Final, Complete Medications Current Medications Ketorolac Tromethamine 30 mg 30 mg 1X ONCE IV Last administered on 12/07/16 14:34; Start 12/07/16 at 14:30; Stop 12/07/16 at 14:31; Status DC Sodium Chloride 1,000 ml @ 1,000 mls/hr 1X ONCE IV Last administered on 14:34; Start 12/07/16 at 14:30; Stop 12/07/16 at 15:29; Status DC Ceftriaxone Sodium 1 gm/ Sodium Chloride 50 ml @ 100 mls/hr Q24H IV ; Start at 15:30; Stop 12/08/16 at 15:30; Status DC Azithromycin 250 ml @ 250 mls/hr 1X ONCE IV Last administered on 12/07/16 15 :48; Start 12/07/16 at 15:15; Stop 12/07/16 at 16:14; Status DC Sodium Chloride 1,000 ml @ 1,000 mls/hr 1X ONCE IV Last administered on 16:09; Start 12/07/16 at 15:15; Stop 12/07/16 at 16:14; Status DC Ceftriaxone Sodium 50 ml @ 100 mls/hr 1X ONCE IV Last administered on 15:29; Start 12/07/16 at 15:15; Stop 12/07/16 at 15:44; Status DC Sodium Chloride (Iv Sodium Chloride 0.9% 1000ml Bag) 1,000 ml @ 150 mls/hr 1X ONCE IV Last administered on 12/07/16 18:10; Start 12/07/16 at 15:15; Stop 11/11 at 21:54; Status DC Famotidine (Pepcid) 20 mg 1X ONCE IVP Last administered on 12/07/16 15:48; Start 12/07/16 at 15:45; Stop 12/07/16 at 15:46; Status DC Ondansetron HCl 4 mg 4 mg 1X ONCE IV Last administered on 12/07/16 16:09; Start 12/07/16 at 16:15; Stop 12/07/16 at 16:16; Status DC Sodium Chloride (Iv Sodium Chloride 0.9% 1000ml Bag) 1,000 ml @ 150 mls/hr Q6H40M IV Last administered on 12/08/16 06:38; Start 12/07/16 at 16:30; Stop 12/08/16 at 14:21; Status DC Ondansetron HCl (Zofran) 4 mg PRN Q6HRS PRN IV NAUSEA/VOMITING Last administered on 12/19/16 02:59; Start 12/07/16 at 16:30 Acetaminophen (Tylenol) 500 mg PRN Q6HRS PRN PO MILD PAIN / TEMP Last administered on 12/09/16 15:04; Start 12/07/16 at 16:30 Morphine Sulfate 2 mg PRN Q2HR PRN IV PAIN Last administered on 12/08/16 05:28 ; Start 12/07/16 at 16:30 Zolpidem Tartrate (Ambien) 5 mg PRN QHS PRN PO INSOMNIA Last administered on 01:06; Start 12/07/16 at 16:30; Stop 12/08/16 at 10:03; Status DC Methocarbamol (Robaxin) 500 mg QID PO Last administered on 12/07/16 21:19; Start 12/07/16 at 17:00; Stop 12/08/16 at 10:03; Status DC Oxycodone/ Acetaminophen (Percocet 5/325) 1 tab PRN Q4HRS PRN PO SEVERE PAIN; Start 12/07/16 at 16:30 Tramadol HCl (Ultram) 50 mg PRN Q6HRS PRN PO MODERATE PAIN Last administered on 12/07/16 17:11; Start 12/07/16 at 16:30 Nicotine (Nicoderm Cq 21mg) 1 patch PRN DAILY PRN TD SMOKING CESSATION; Start 12/07/16 at 16:30 Info (Do NOT chart on this placeholder) 1 each 1X ONCE MC ; Start 12/07/16 at 22:45; Stop 12/07/16 at 22:46; Status UNV Pneumococcal Polyvalent Vaccine (Do NOT chart on this placeholder) 1 each 1X ONCE MC ; Start 12/07/16 at 22:45; Stop 12/07/16 at 22:46; Status UNV Influenza Virus Vaccine Quadrival (Fluarix Quad [id number] Syringe) 0.5 ml ONCE ONCE VAX IM ; Start 12/08/16 at 09:00; Stop 12/08/16 at 09:01; Status DC Pneumococcal Polyvalent Vaccine (Pneumovax 23) 0.5 ml ONCE ONCE VAX IM ; Start 12/08/16 at 09:00; Stop 12/08/16 at 09:01; Status DC Labetalol HCl (Normodyne) 10 mg 1X ONCE IVP Last administered on 12/08/16 08: 56; Start 12/08/16 at 08:30; Stop 12/08/16 at 08:35; Status DC Alprazolam (Xanax) 0.5 mg 1X ONCE PO Last administered on 12/08/16 08:40; Start 12/08/16 at 08:45; Stop 12/08/16 at 08:46; Status DC Aspirin (Children'S Aspirin) 324 mg 1X ONCE PO Last administered on 12/08/16 13:44; Start 12/08/16 at 09:30; Stop 12/08/16 at 09:31; Status DC Aspirin (Jada Aspirin) 325 mg DAILYWBKFT PO ; Start 12/09/16 at 08:00; Stop at 08:00; Status DC Heparin Sodium (Porcine) 4000 unit 4,000 unit 1X ONCE IV ; Start 12/08/16 at 09 :30; Stop 12/08/16 at 14:21; Status DC Midazolam HCl 100 ml @ As Directed STK-MED ONCE IV ; Start 12/08/16 at 09:52; Stop 12/08/16 at 09:53; Status DC Propofol (Diprivan) 100 ml @ 0 mls/hr CONT PRN IV SEE I/O RECORD Last administered on 12/08/16 23:49; Start 12/08/16 at 10:00; Stop 12/21/16 at 10:34 ; Status DC Famotidine (Pepcid) 20 mg QHS IVP Last administered on 12/22/16 20:31; Start 12/08/16 at 21:00 Heparin Sodium (Porcine) 5000 unit 5,000 unit Q8HRS SQ ; Start 12/08/16 at 14:00 ; Stop 12/08/16 at 14:00; Status DC Norepinephrine Bitartrate 8 mg/ Sodium Chloride 258 ml @ 1.93 mls/hr CONT PRN IV SEE I/O RECORD; Start 12/08/16 at 10:15; Status Cancel Dopamine HCl/ Dextrose 250 ml @ As Directed STK-MED ONCE IV ; Start 12/08/16 at 10:07; Stop 12/08/16 at 10:08; Status DC Norepinephrine Bitartrate 8 mg/ Sodium Chloride 258 ml @ 0 mls/hr CONT PRN IV SEE I/O RECORD Last administered on 12/09/16 08:46; Start 12/08/16 at 10:15; Stop 12/09/16 at 11:47; Status DC Dopamine HCl/ Dextrose 250 ml @ 10.084 mls/ hr CONT PRN IV SEE I/O RECORD Last administered on 12/08/16 10:00; Start 12/08/16 at 10:15; Stop 12/21/16 at 10:35; Status DC Sodium Bicarbonate/ Sodium Chloride (Iv Sodium Chloride 0.45%) 1,050 ml @ 200 mls/hr Q5H15M IV Last administered on 12/09/16 05:11; Start 12/08/16 at 10:30 ; Stop 12/09/16 at 08:28; Status DC Phenylephrine HCl 1 mg STK-MED ONCE IV ; Start 12/08/16 at 10:25; Stop 12/08/16 at 10:26; Status DC Aspirin 300 mg 300 mg 1X ONCE TN ; Start 12/08/16 at 10:45; Stop 12/08/16 at 10 :46; Status DC Sodium Chloride 1,000 ml @ 1,000 mls/hr 1X ONCE IV Last administered on 10:00; Start 12/08/16 at 11:45; Stop 12/08/16 at 12:44; Status DC Sodium Chloride (Iv Sodium Chloride 0.9% 1000ml Bag) 1,000 ml @ 1,000 mls/hr 1X ONCE IV Last administered on 12/08/16 10:00; Start 12/08/16 at 11:45; Stop 12/08/16 at 12:44; Status DC Albuterol/ Ipratropium (Duoneb) 3 ml RTQID NEB Last administered on 12/08/16 19:44; Start 12/08/16 at 12:30; Stop 12/09/16 at 05:17; Status DC Budesonide 0.5 mg 0.5 mg RTBID NEB Last administered on 12/23/16 08:17; Start 12/08/16 at 12:30 Sodium Chloride 1,000 ml @ 1,000 mls/hr 1X ONCE IV Last administered on 11:00; Start 12/08/16 at 12:15; Stop 12/08/16 at 13:14; Status DC Sodium Chloride 1,000 ml @ 1,000 mls/hr 1X ONCE IV Last administered on 11:00; Start 12/08/16 at 12:15; Stop 12/08/16 at 13:14; Status DC Heparin Sodium/ Dextrose 500 ml @ 0 mls/hr CONT PRN IV SEE I/O RECORD Last administered on 12/09/16 13:11; Start 12/08/16 at 12:45; Stop 12/13/16 at 13:10 ; Status DC Heparin Sodium (Porcine) 1,350 unit PRN Q6HRS PRN IV FOR UFH LEVEL LESS THAN 0.2 Last administered on 12/09/16 05:47; Start 12/08/16 at 12:45; Stop at 13:10; Status DC Etomidate (Amidate) 20 mg STK-MED ONCE IV ; Start 12/08/16 at 13:00; Stop at 13:01; Status DC Succinylcholine Chloride 200 mg 200 mg STK-MED ONCE .ROUTE ; Start 12/08/16 at 13:00; Stop 12/08/16 at 13:01; Status DC Piperacillin Sod/ Tazobactam Sod 3.375 gm/Sodium Chloride 50 ml @ 100 mls/hr Q6HRS IV ; Start 12/08/16 at 18:00; Stop 12/08/16 at 18:00; Status DC Vancomycin HCl 1 gm/Sodium Chloride 250 ml @ 250 mls/hr 1X ONCE IV Last administered on 12/08/16 14:21; Start 12/08/16 at 14:00; Stop 12/08/16 at 14:59 ; Status DC Piperacillin Sod/ Tazobactam Sod 2.25 gm/Sodium Chloride 50 ml @ 100 mls/hr Q6HRS IV Last administered on 12/09/16 06:17; Start 12/08/16 at 14:00; Stop at 08:25; Status DC Midazolam HCl 100 ml @ 0 mls/hr CONT PRN IV SEE I/O RECORD Last administered on 12/17/16 04:53; Start 12/08/16 at 10:30; Stop 12/21/16 at 10:36; Status DC Fentanyl Citrate (Fentanyl 600 Mcg/30 ml UNDERWRITING DIRECTOR) 30 ml @ 0 mls/hr CONT PRN IV PROTOCOL Last administered on 12/17/16 04:54; Start 12/09/16 at 05:15 Fentanyl Citrate (Fentanyl 2ml Vial) 25 mcg PRN Q1HR PRN IV COMM; Start at 05:15 Fentanyl Citrate (Fentanyl 2ml Vial) 50 mcg PRN Q1HR PRN IV COMM Last administered on 12/18/16 21:54; Start 12/09/16 at 05:15 Ipratropium [place] (Atrovent) 0.5 mg RTQID NEB Last administered on 12/23/16 08:17; Start 12/09/16 at 08:00 Aspirin (Children'S Aspirin) 81 mg DAILYWBKFT PO Last administered on 08:00; Start 12/09/16 at 08:00 Chlorhexidine Gluconate 15 ml 15 ml BID MM Last administered on 12/18/16 21:49 ; Start 12/09/16 at 09:00; Stop 12/19/16 at 08:54; Status DC Sodium Bicarbonate 150 meq/Dextrose 1,150 ml @ 100 mls/hr [id number] IV Last administered on 12/10/16 09:34; Start 12/09/16 at 09:00; Stop 12/10/16 at 12:14 ; Status DC Piperacillin Sod/ Tazobactam Sod 3.375 gm/Sodium Chloride 50 ml @ 100 mls/hr Q6HRS IV Last administered on 12/11/16 06:01; Start 12/09/16 at 12:00; Stop at 07:47; Status DC Norepinephrine Bitartrate 16 mg/ Sodium Chloride 266 ml @ 0.99 mls/hr CONT PRN IV SEE I/O RECORD Last administered on 12/09/16 20:36; Start 12/09/16 at 12 :00; Stop 12/21/16 at 10:35; Status DC Doxycycline Hyclate/Dextrose 100 ml @ 50 mls/hr Q12HR IV Last administered on 12/13/16 20:50; Start 12/09/16 at 13:00; Stop 12/14/16 at 08:34; Status DC Atropine Sulfate 0.5 mg STK-MED ONCE .ROUTE ; Start 12/08/16 at 10:30; Stop at 13:18; Status DC Epinephrine HCl 3 mg STK-MED ONCE .ROUTE ; Start 12/08/16 at 10:30; Stop at 13:18; Status DC Calcium Gluconate 1000 mg 1,000 mg 1X ONCE IVP ; Start 12/10/16 at 10:00; Stop 12/10/16 at 10:01; Status UNV Magnesium Sulfate/ Dextrose 50 ml @ 25 mls/hr 1X ONCE IV Last administered on 12/10/16 11:40; Start 12/10/16 at 12:00; Stop 12/10/16 at 13:59; Status DC Calcium Gluconate 1000 mg/Sodium Chloride 110 ml @ 220 mls/hr 1X ONCE IV Last administered on 12/10/16 11:36; Start 12/10/16 at 12:00; Stop 12/10/16 at 12:29; Status DC Magnesium Sulfate/ Dextrose 50 ml @ 25 mls/hr PRN DAILY PRN IV for Mag < 1.7 on am labs; Start 12/10/16 at 12:15; Stop 12/13/16 at 09:57; Status DC Amino Acids/ Glycerin/ Electrolytes 1,000 ml @ 80 mls/hr [id number] IV ; Start at 12:30; Stop 12/10/16 at 12:30; Status DC Albumin Human (Albuminar) 100 ml @ 100 mls/hr TID IV ; Start 12/10/16 at 14:00 ; Stop 12/10/16 at 14:00; Status DC Calcium Gluconate 2000 mg 2,000 mg TID IVP ; Start 12/10/16 at 14:00; Stop 12/10 at 14:00; Status DC Piperacillin Sod/ Tazobactam Sod 2.25 gm/Sodium Chloride 50 ml @ 100 mls/hr Q6HRS IV Last administered on 12/18/16 05:58; Start 12/11/16 at 12:00; Stop at 07:17; Status DC Linezolid (Zyvox Premix) 300 ml @ 300 mls/hr Q12HR IV Last administered on 21:24; Start 12/11/16 at 09:00; Stop 12/18/16 at 07:17; Status DC Info 1 each 1 each PRN DAILY PRN MC SEE COMMENTS Last administered on 08:21; Start 12/11/16 at 08:15; Stop 12/13/16 at 13:13; Status DC Potassium Phosphate/Sodium Chloride (Potassium Phosphate/Iv Sodium Chloride 0.9 % 100ml) 104.5333 ml @ 52.267 m... Q2H IV Last administered on 12/11/16 17:22 ; Start 12/11/16 at 09:00; Stop 12/11/16 at 14:59; Status DC Furosemide 20 mg 20 mg 1X ONCE IVP Last administered on 12/11/16 11:10; Start 12/11/16 at 10:00; Stop 12/11/16 at 10:03; Status DC Dobutamine HCl/ Dextrose 250 ml @ 0 mls/hr CONT PRN IV SEE I/O RECORD Last administered on 12/11/16 15:05; Start 12/11/16 at 14:45 Magnesium Sulfate/ Dextrose 50 ml @ 25 mls/hr PRN DAILY PRN IV for Mag < 1.7 on am labs; Start 12/12/16 at 08:45; Stop 12/13/16 at 09:57; Status DC Potassium Chloride 50 ml @ 50 mls/hr PRN Q6HRS PRN IV For K < 3.7; Start at 08:45; Stop 12/13/16 at 09:57; Status DC Potassium Chloride (KCl Premix 20meq) 50 ml @ 50 mls/hr PRN Q2HR PRN IV total of 40mEq for K < 3.5; Start 12/12/16 at 08:45; Stop 12/13/16 at 09:57; Status DC Acetylcysteine 1200 mg 1,200 mg BID PO Last administered on 12/13/16 20:50; Start 12/12/16 at 09:00; Stop 12/14/16 at 08:17; Status DC Potassium Chloride (KCl Premix 20meq) 50 ml @ 50 mls/hr Q1H IV Last administered on 12/12/16 13:16; Start 12/12/16 at 09:00; Stop 12/12/16 at 10:59 ; Status DC Lidocaine/Sodium Bicarbonate 20 ml 20 ml STK-MED ONCE IJ ; Start 12/12/16 at 12: 13; Stop 12/12/16 at 12:14; Status DC Heparin Sodium/ Sodium Chloride 500 ml @ As Directed STK-MED ONCE .ROUTE ; Start 12/12/16 at 12:14; Stop 12/12/16 at 12:15; Status DC Lidocaine/Sodium Bicarbonate (Buffered Lidocaine 1%) 3 ml 1X ONCE IJ Last administered on 12/12/16 13:08; Start 12/12/16 at 12:15; Stop 12/12/16 at 12:17 ; Status DC Heparin Sodium (Porcine) 2,500 unit 1X ONCE INT CAT Last administered on 13:08; Start 12/12/16 at 12:15; Stop 12/12/16 at 12:17; Status DC Heparin Sodium/ Sodium Chloride 60 unit 60 unit 1X ONCE IV Last administered on 12/12/16 12:15; Start 12/12/16 at 12:15; Stop 12/12/16 at 12:17; Status DC Heparin Sodium/ Sodium Chloride 1,500 ml @ As Directed STK-MED ONCE .ROUTE ; Start 12/12/16 at 15:03; Stop 12/12/16 at 15:04; Status DC Lidocaine HCl 20 ml STK-MED ONCE .ROUTE ; Start 12/12/16 at 15:03; Stop at 15:04; Status DC Iodixanol (Visipaque 320) 100 ml STK-MED ONCE .ROUTE ; Start 12/12/16 at 15:04; Stop 12/12/16 at 15:05; Status DC Heparin Sodium/ Sodium Chloride 1,000 unit 1X ONCE IART Last administered on 15:41; Start 12/12/16 at 15:30; Stop 12/12/16 at 15:32; Status DC Iodixanol (Visipaque 320) 100 ml 1X ONCE IART Last administered on 12/12/16 15:41; Start 12/12/16 at 15:30; Stop 12/12/16 at 15:32; Status DC Lidocaine HCl 4 ml 4 ml 1X ONCE IJ Last administered on 12/12/16 15:41; Start 12/12/16 at 15:30; Stop 12/12/16 at 15:32; Status DC Potassium Chloride 50 ml @ 50 mls/hr 1X ONCE IV Last administered on 04:13; Start 12/13/16 at 04:15; Stop 12/13/16 at 05:14; Status DC Potassium Chloride 50 ml @ 50 mls/hr 1X ONCE IV Last administered on 03:13; Start 12/13/16 at 03:15; Stop 12/13/16 at 04:14; Status DC Potassium Chloride 50 ml @ 50 mls/hr Q1H IV ; Start 12/13/16 at 09:00; Stop at 09:00; Status DC Furosemide 100 mg/ Sodium Chloride 100 ml @ 0 mls/hr CONT PRN IV SEE I/O RECORD Last administered on 12/13/16 11:43; Start 12/13/16 at 10:00; Stop 12/14 at 08:17; Status DC Magnesium Sulfate/ Dextrose 50 ml @ 25 mls/hr PRN DAILY PRN IV for Mag < 1.7 on am labs; Start 12/13/16 at 10:00 Potassium Chloride 50 ml @ 50 mls/hr PRN Q6HRS PRN IV For K < 3.7 Last administered on 12/15/16 01:08; Start 12/13/16 at 10:00 Potassium Chloride 50 ml @ 50 mls/hr PRN Q2HR PRN IV total of 40mEq for K < 3.5; Start 12/13/16 at 10:00 Potassium Phosphate 40 mmol/ Sodium Chloride 113.3333 ml @ 52.267 m... PRN 1X PRN IV SEE COMMENTS; Start 12/13/16 at 10:00; Stop 12/13/16 at 23:59; Status DC Sodium Chloride 1,000 ml @ 1,000 mls/hr Q1H PRN IV hypotension; Start 12/13/16 at 14:51; Stop 12/13/16 at 20:50; Status DC Sodium Chloride (Iv Sodium Chloride 0.9% 1000ml Bag) 1,000 ml @ 400 mls/hr Q2H30M PRN IV PATENCY; Start 12/13/16 at 14:51; Stop 12/14/16 at 02:50; Status DC Info (PHARMACY MONITORING -- do not chart) 1 each PRN DAILY PRN MC SEE COMMENTS ; Start 12/13/16 at 15:00; Status UNV Info 1 each 1 each PRN DAILY PRN MC SEE COMMENTS; Start 12/13/16 at 15:00; Stop 12/15/16 at 08:35; Status DC Sodium Phosphate 0.4 mmol/Dextrose 1 ml @ 50 mls/hr BID IV ; Start 12/14/16 at 09:00; Status UNV Albumin Human (Albuminar) 100 ml @ 100 mls/hr TID IV Last administered on 12/15 21:14; Start 12/14/16 at 09:00; Stop 12/15/16 at 21:59; Status DC Darbepoetin Koffi 60 mcg 60 mcg [id number] SQ Last administered on 12/21/16 22:29 ; Start 12/14/16 at 21:00 Sodium Phosphate/ Dextrose 113.3333 ml @ 28.333 m... Q4H IV Last administered on 12/14/16 14:59; Start 12/14/16 at 09:00; Stop 12/14/16 at 16:59; Status DC Info (PHARMACY MONITORING -- do not chart) 1 each PRN DAILY PRN MC SEE COMMENTS ; Start 12/14/16 at 11:00; Status UNV Info 1 each 1 each PRN DAILY PRN MC SEE COMMENTS; Start 12/14/16 at 11:00; Status UNV Albumin Human 200 ml @ 200 mls/hr 1X PRN PRN IV Hypotension; Start 12/14/16 at 13:30; Stop 12/14/16 at 19:00; Status DC Sodium Chloride 1,000 ml @ 1,000 mls/hr Q1H PRN IV hypotension; Start 12/15/16 at 06:32; Stop 12/15/16 at 09:09; Status DC Albumin Human 200 ml @ 200 mls/hr 1X PRN PRN IV Hypotension Last administered on 12/15/16 07:38; Start 12/15/16 at 06:45; Stop 12/15/16 at 12:44; Status DC Sodium Chloride (Iv Sodium Chloride 0.9% 1000ml Bag) 1,000 ml @ 400 mls/hr Q2H30M PRN IV PATENCY; Start 12/15/16 at 06:32; Stop 12/15/16 at 18:31; Status DC Info 1 each 1 each PRN DAILY PRN MC SEE COMMENTS; Start 12/15/16 at 06:45 Piperacillin Sod/ Tazobactam Sod 2.25 gm/Sodium Chloride 50 ml @ 100 mls/hr Q8HRS IV ; Start 12/15/16 at 14:00; Stop 12/15/16 at 14:00; Status DC Piperacillin Sod/ Tazobactam Sod 2.25 gm/Sodium Chloride 50 ml @ 100 mls/hr Q6HRS IV ; Start 12/15/16 at 12:00; Status Cancel Dexmedetomidine HCl 200 mcg/ Sodium Chloride 50 ml @ 0 mls/hr CONT PRN IV PER PROTOCOL Last administered on 12/17/16t 18:11; Start 12/16/16 at 12:15; Stop at 07:51; Status DC Sodium Chloride (Iv Sodium Chloride 0.9% 500ml Bag) 500 ml @ 500 mls/hr 1X PRN PRN IV SEE COMMENTS; Start 12/16/16 at 12:15 Atropine Sulfate 0.5 mg 0.5 mg PRN Q5MIN PRN IV SEE COMMENTS; Start 12/16/16 at 12:15 Sodium Chloride 1,000 ml @ 1,000 mls/hr Q1H PRN IV hypotension; Start 12/16/16 at 20:04; Stop 12/17/16 at 02:03; Status DC Albumin Human (Albuminar) 200 ml @ 200 mls/hr 1X PRN PRN IV Hypotension Last administered on 12/16/16t 20:30; Start 12/16/16 at 20:15; Stop 12/17/16 at 02:14 ; Status DC Sodium Chloride (Normal Saline Flush) 10 ml 1X PRN PRN IV AP catheter pack; Start 12/16/16 at 20:15; Stop 12/17/16 at 20:14; Status DC Sodium Chloride 10 ml 10 ml 1X PRN PRN IV [employer] PROFESSIONAL catheter pack; Start 12/16/16 at 20:15; Stop 12/17/16 at 20:14; Status DC Sodium Chloride (Iv Sodium Chloride 0.9% 1000ml Bag) 1,000 ml @ 400 mls/hr Q2H30M PRN IV PATENCY; Start 12/16/16 at 20:04; Stop 12/17/16 at 08:03; Status DC Info (PHARMACY MONITORING -- do not chart) 1 each PRN DAILY PRN MC SEE COMMENTS ; Start 12/16/16 at 20:15; Status UNV Info (PHARMACY MONITORING -- do not chart) 1 each PRN DAILY PRN MC SEE COMMENTS ; Start 12/16/16 at 20:15; Status UNV Enoxaparin Sodium 40 mg 40 mg Q24H SQ Last administered on 12/18/16 16:19; Start 12/17/16 at 16:00; Stop 12/19/16 at 07:31; Status DC Albumin Human (Albuminar) 100 ml @ 100 mls/hr 1X ONCE IV ; Start 12/17/16 at 20:00; Stop 12/17/16 at 20:59; Status DC Heparin Sodium (Porcine) 5,000 unit Q12HR SQ Last administered on 12/23/16 09: 00; Start 12/19/16 at 09:00 Furosemide 40 mg 40 mg 1X ONCE IVP Last administered on 12/19/16 08:13; Start 12/19/16 at 08:00; Stop 12/19/16 at 08:01; Status DC Potassium Chloride (KCl Premix 20meq) 50 ml @ 25 mls/hr Q2H IV Last administered on 12/19/16 08:16; Start 12/19/16 at 08:30; Stop 12/19/16 at 10:29 ; Status DC Lorazepam (Ativan) 2 mg STK-MED ONCE .ROUTE ; Start 12/19/16 at 10:51; Stop at 10:52; Status DC Lorazepam (Ativan) 4 mg 1X ONCE IV Last administered on 12/19/16 11:15; Start 12/19/16 at 11:15; Stop 12/19/16 at 11:16; Status DC Lorazepam (Ativan) 2 mg PRN Q2HRS PRN IV Seizure Last administered on 23:06; Start 12/19/16 at 11:30 Lorazepam (Ativan) 4 mg PRN Q2HRS PRN IV Seizure; Start 12/19/16 at 11:30 Hydralazine HCl (Apresoline) 10 mg PRN Q4HRS PRN IVP ELEVATED BP, SEE COMMENTS ; Start 12/19/16 at 12:00 Info (PHARMACY MONITORING -- do not chart) 1 each PRN DAILY PRN MC SEE COMMENTS ; Start 12/19/16 at 14:00; Status UNV Info (PHARMACY MONITORING -- do not chart) 1 each PRN DAILY PRN MC SEE COMMENTS ; Start 12/19/16 at 14:00; Status UNV Lorazepam 1 mg 1 mg PRN Q4HRS PRN IV ANXIETY / AGITATION; Start 12/19/16 at 16: 30 Levetiracetam/ Sodium Chloride (Keppra/Iv Sodium Chloride 0.9% 100ml) 105 ml @ 400 mls/hr Q12HR IV Last administered on 12/21/16 09:44; Start 12/19/16 at 17: 00; Stop 12/21/16 at 13:44; Status DC Lorazepam 2 mg 2 mg PRN Q4HRS PRN IV ANXIETY / AGITATION Last administered on 16:01; Start 12/19/16 at 16:30 Amino Acids/ Glycerin/ Electrolytes (Procalamine) 1,000 ml @ 80 mls/hr [id number] IV Last administered on 12/22/16 04:52; Start 12/20/16 at 11:00; Stop at 12:55; Status DC Barium Sulfate (Varibar Honey) 250 ml 1X ONCE PO ; Start 12/20/16 at 14:00; Stop 12/20/16 at 14:07; Status DC Barium Sulfate (Varibar Thin Liquid) 148 gm 1X ONCE PO Last administered on 15:17; Start 12/20/16 at 15:15; Stop 12/20/16 at 15:16; Status DC Levetiracetam (Keppra) 250 mg BID PO Last administered on 12/23/16 09:00; Start 12/21/16 at 21:00 Sodium Chloride (Normal Saline Flush) 10 ml 1X PRN PRN IV AP catheter pack; Start 12/21/16 at 19:45; Stop 12/22/16 at 19:44; Status DC Sodium Chloride (Normal Saline Flush) 10 ml 1X PRN PRN IV [employer] catheter pack; Start 12/21/16 at 19:45; Stop 12/22/16 at 19:44; Status DC Info (PHARMACY MONITORING -- do not chart) 1 each PRN DAILY PRN MC SEE COMMENTS ; Start 12/21/16 at 19:45; Status UNV Info 1 each 1 each PRN DAILY PRN MC SEE COMMENTS; Start 12/21/16 at 19:45; Status UNV Sodium Chloride 1,000 ml @ 1,000 mls/hr Q1H PRN IV hypotension; Start 12/22/16 at 08:36; Stop 12/22/16 at 14:35; Status DC Albumin Human (Albuminar) 200 ml @ 200 mls/hr 1X PRN PRN IV Hypotension; Start 12/22/16 at 08:45; Stop 12/22/16 at 14:44; Status DC Acetaminophen (Tylenol) 500 mg 1X PRN PRN PO MILD PAIN / TEMP; Start 12/22/16 at 08:45; Stop 12/23/16 at 08:44; Status DC Diphenhydramine HCl (Benadryl) 25 mg 1X PRN PRN IV ITCHING; Start 12/22/16 at 08:45; Stop 12/23/16 at 08:44; Status DC Diphenhydramine HCl (Benadryl) 25 mg 1X PRN PRN IV ITCHING; Start 12/22/16 at 08:45; Stop 12/23/16 at 08:44; Status DC Labetalol HCl (Normodyne) 10 mg PRN Q1HR PRN IVP SBP > 180; Start 12/22/16 at 08:45; Stop 12/23/16 at 08:44; Status DC Clonidine HCl (Catapres) 0.1 mg 1X PRN PRN PO SBP > 180; Start 12/22/16 at 08: 45; Stop 12/23/16 at 08:44; Status DC Info (PHARMACY MONITORING -- do not chart) 1 each PRN DAILY PRN MC SEE COMMENTS ; Start 12/22/16 at 08:45; Status UNV Active Scripts Active Ultram (Tramadol Hcl) 50 Mg Tablet 50 Mg PO Q6H PRN Robaxin (Methocarbamol) 500 Mg Tablet 500 Mg PO QID Reported Percocet 5-325 Mg Tablet (Oxycodone/Acetaminophen) 1 Each Tablet 1-2 Tab PO Q4HRS Vitals/I & O Vital Sign - Last 24 Hours 12/22/16 12/22/16 12/22/16 12/22/16 12:00 15:00 16:41 19:00 Temp 98.6 98.1 98.6 98.1 Pulse 88 95 Resp 18 18 B/P 106/64 90/53 Pulse Ox 99 99 100 O2 Delivery Nasal Cannula Nasal Cannula Nasal Cannula O2 Flow Rate 6.0 4.0 4.0 12/22/16 12/22/16 12/22/16 12/23/16 20:05 21:02 23:00 03:00 Temp 98.3 98.1 98.3 98.1 Pulse 98 96 Resp 18 18 B/P 95/69 94/60 Pulse Ox 95 100 100 O2 Delivery Nasal Cannula Nasal Cannula Nasal Cannula Nasal Cannula O2 Flow Rate 4.0 4.0 12/23/16 12/23/16 07:20 08:19 Temp 98.5 98.5 Pulse 87 Resp 18 B/P 102/69 Pulse Ox 94 95 O2 Delivery Nasal Cannula Nasal Cannula O2 Flow Rate 4.0 Intake and Output 12/22/16 12/22/16 12/23/16 15:00 23:00 07:00 Intake Total 175 ml 655 ml 275 ml Balance 175 ml 655 ml 275 ml OSCAR SANTA MD Dec 23, 2016 09:26
--- NOTE | 2016-12-23 11:13 | PDOC ---
Renal-Progress Notes Subjective Notes Notes NONE History of Present Illness Hx of present illness NO CHANGE Vitals Vitals Vital Signs Date Time Temp Pulse Resp B/P Pulse Ox O2 Delivery O2 Flow Rate FiO2 12/23/16 10:28 18 96 Nasal Cannula 4.0 12/23/16 10:01 98.1 96 107/76 98.1 Weight Weight [ ] I.O. Intake and Output Intake and Output 12/23/16 07:00 Intake Total 1105 ml Balance 1105 ml Intake Oral 0 ml IV Total 480 ml Tube Feeding 625 ml Labs Labs Laboratory Tests Test 12/23/16 06:15 Sodium Level 137mmol/L (136-145) Potassium Level 4.6mmol/L (3.5-5.1) Chloride Level 95mmol/L (98-107) Carbon Dioxide Level 28mmol/L (21-32) Anion Gap 14 (6-14) Blood Urea Nitrogen 40mg/dL (8-26) Creatinine 5.0mg/dL (0.7-1.3) Estimated GFR (Cockcroft-Gault) 15.0 Glucose Level 107mg/dL (70-99) Calcium Level 9.6mg/dL (8.5-10.1) Micro Micro Microbiology 12/07/16 Blood Culture - Final, Complete NO GROWTH AFTER 5 DAYS 12/07/16 Stool Culture - Final, Complete 12/07/16 Stool Culture Result 1 (NEFTALI) - Final, Complete 12/07/16 Campylobacter Antigen Assay - Final, Complete 12/07/16 Campylobactor Result 1 - Final, Complete 12/07/16 Shiga Toxin Test - Final, Complete 12/12/16 AFB Specimen Processing Tissue - Final, Resulted 12/12/16 Acid Fast Bacilli Culture, Resulted Pending 12/12/16 Gram Stain - Final, Resulted 12/12/16 Fungal Culture - Preliminary, Resulted 12/12/16 Fungal Culture Result 1 - Preliminary, Resulted 12/12/16 Urine Culture - Final, Complete 12/12/16 Urine Culture Result 1 (NEFTALI) - Final, Complete Review of Systems Constitutional: yes: alert, oriented, weakness Ears/Nose/Throat: Yes: no symptom reported Eyes: Yes: no symptom reported Pulmonary: Yes no symptom reported Cardiovascular: Yes no symptom reported Gastrointestional: Yes: no symptom reported Genitourinary: Yes: no symptom reported Musculoskeletal: Yes: muscle atrophy, muscle stiffness Physical Exam General Appearance: no apparent distress Skin: warm Respiratory: decreased breath sounds Heart: S1S2, RRR Abdomen: soft, bowel sounds present Genitourinary: bladder flat Neurology: alert, oriented, other (agitated) Assessment Assessment IMP ASHLEY-NO IMPROVEMENT IN CLEARANCE ANEMIA LEUCOCYTOSIS PNEUMONIA SEIZURE DYSPHAGIA DECONDITIONING PLAN CONT ANTIBIOTICS CONT WITH TF HD NEXT ON SUNDAY CONT TO LOOK FOR RENAL RECOVERY INCREASE ACTIVITY WILL FOLLOW BLUE RICHARDSON MD Dec 23, 2016 11:13
[2016-12-23] MEDS: LORAZEPAM 2 MG/ML VIAL IV PRN (16:44)
[2016-12-23] MEDS: FAMOTIDINE 20 MG TABLET. PO SCH (20:47)
[2016-12-24 03:00] VITALS: BP 101/70
[2016-12-24] MEDS: LORAZEPAM 2 MG/ML VIAL IV PRN ×2 (04:59→20:50)
[2016-12-24 06:17] LABS: CALCIUM 9.7 mg/dL (8.5-10.1); CREATININE 6.9 mg/dL (0.7-1.3); GFR 10.3; POTASSIUM 4.8 mmol/L (3.5-5.1)
[2016-12-24 07:18] VITALS: BP 106/67
[2016-12-24] MEDS: IPRATROPIUM BROMIDE 0.5 MG/2.5 ML NEBU. NEB SCH ×4 (08:04→19:37)
[2016-12-24] MEDS: BUDESONIDE 0.5 MG/2 ML NEBU NEB SCH ×2 (08:04→19:37)
[2016-12-24] MEDS: LEVETIRACETAM 250 MG TABLET. PO SCH ×2 (08:26→20:46)
[2016-12-24] MEDS: ASPIRIN 81 MG TAB.CHEW PO SCH (08:27)
[2016-12-24] MEDS: HEPARIN PF for SUB-Q USE 5,000 UNIT/0.5 ML VIAL. SQ SCH ×2 (08:38→21:01)
--- NOTE | 2016-12-24 09:02 | RAD ---
EXAM: Head CT without contrast. HISTORY: Mental status changes. TECHNIQUE: Computed tomographic images of the head were obtained without contrast. COMPARISON: MRI dated 12/19/2016. FINDINGS: There is no acute or subacute extra-axial or intraparenchymal hemorrhage. There is no mass effect or midline shift. There is no hydrocephalus. There is mild developmental asymmetry of the right greater than left lateral ventricles. There is mild cerebral volume loss. There are areas of decreased attenuation within the cerebral white matter, nonspecific and likely related to chronic small vessel disease. There is mild left maxillary sinus mucosal thickening. There are chronic nasal bone and nasal cartilage fractures. There is a nasogastric tube partially included on the [id number]. The mastoid air cells are clear. IMPRESSION: 1. Subtle areas of hypodensity within the cerebral white matter, likely due to chronic small vessel disease. 2. Mild cerebral volume loss, greater than expected for patient age. 3. Note is made that MRI is more sensitive for acute infarction. PQRS Compliance Statement: One or more of the following individualized dose reduction techniques were utilized for this examination: 1. Automated exposure control 2. Adjustment of the mA and/or kV according to patient size 3. Use of iterative reconstruction technique
[2016-12-24 11:15] VITALS: BP 116/68
--- NOTE | 2016-12-24 11:17 | PDOC ---
Renal-Progress Notes Subjective Notes Notes NONE History of Present Illness Hx of present illness NO CHANGE Vitals Vitals Vital Signs Date Time Temp Pulse Resp B/P Pulse Ox O2 Delivery O2 Flow Rate FiO2 12/24/16 08:07 97 Nasal Cannula 2.0 12/24/16 07:18 97.5 81 18 106/67 97.5 Weight Weight [ ] I.O. Intake and Output Intake and Output 12/24/16 07:00 Intake Total 525 ml Balance 525 ml Intake Oral 0 ml Tube Feeding 525 ml # Voids 4 Labs Labs Laboratory Tests Test 12/24/16 04:40 Sodium Level 136mmol/L (136-145) Potassium Level 4.8mmol/L (3.5-5.1) Chloride Level 95mmol/L (98-107) Carbon Dioxide Level 27mmol/L (21-32) Anion Gap 14 (6-14) Blood Urea Nitrogen 66mg/dL (8-26) Creatinine 6.9mg/dL (0.7-1.3) Estimated GFR (Cockcroft-Gault) 10.3 Glucose Level 106mg/dL (70-99) Calcium Level 9.7mg/dL (8.5-10.1) Micro Micro Microbiology 12/07/16 Blood Culture - Final, Complete NO GROWTH AFTER 5 DAYS 12/07/16 Stool Culture - Final, Complete 12/07/16 Stool Culture Result 1 (NEFTALI) - Final, Complete 12/07/16 Campylobacter Antigen Assay - Final, Complete 12/07/16 Campylobactor Result 1 - Final, Complete 12/07/16 Shiga Toxin Test - Final, Complete 12/12/16 AFB Specimen Processing Tissue - Final, Resulted 12/12/16 Acid Fast Bacilli Culture, Resulted Pending 12/12/16 Gram Stain - Final, Resulted 12/12/16 Fungal Culture - Preliminary, Resulted 12/12/16 Fungal Culture Result 1 - Preliminary, Resulted 12/12/16 Urine Culture - Final, Complete 12/12/16 Urine Culture Result 1 (NEFTALI) - Final, Complete Review of Systems Constitutional: yes: alert, oriented, weakness Ears/Nose/Throat: Yes: no symptom reported Eyes: Yes: no symptom reported Pulmonary: Yes no symptom reported Cardiovascular: Yes no symptom reported Gastrointestional: Yes: no symptom reported Genitourinary: Yes: no symptom reported Musculoskeletal: Yes: muscle atrophy, muscle stiffness Physical Exam General Appearance: no apparent distress Skin: warm Respiratory: decreased breath sounds Heart: S1S2, RRR Abdomen: soft, bowel sounds present Genitourinary: bladder flat Neurology: alert, oriented, other (agitated) Assessment Assessment IMP ASHLEY-NO IMPROVEMENT IN CLEARANCE ANEMIA LEUCOCYTOSIS PNEUMONIA SEIZURE DYSPHAGIA DECONDITIONING PLAN CONT ANTIBIOTICS CONT WITH TF HD TOMORROW CONT TO LOOK FOR RENAL RECOVERY RENAL SONOGRAM INCREASE ACTIVITY WILL FOLLOW BLUE RICHARDSON MD Dec 24, 2016 11:17
--- NOTE | 2016-12-24 11:58 | PDOC ---
PROGRESS NOTES Chief Complaint Chief Complaint Encephalopathy, delirium, dysphagia Dysphagia, post extubation Seizure, provoked. Cardiac arrest PEA (12/08); TTE EF of 30-35% Acute respiratory failure, likely multifactorial; On mechanical Ventilation ()- possible aspiration pneumonia. Possible ARDS vs pulmonary edema vs PNA, resolving. ASHLEY on HD Bilateral LE, 5th toe possible dry gangrene Plan Tube feeds, speech and swallow evaluation consult Dr Baldomero OSWALD per nephrology, follow neurology recommendations. Keppra and ativan seizure precautions d/w cardio before dc History of Present Illness History of Present Illness doing better family at bedside no chest pain no fever Vitals Vitals Vital Signs Date Time Temp Pulse Resp B/P Pulse Ox O2 Delivery O2 Flow Rate FiO2 12/24/16 11:15 97.6 80 18 116/68 96 Nasal Cannula 3.0 97.6 Physical Exam Physical Exam General: Alert, Cooperative, No acute distress, Other (follows commands most of the time, ) Heart: Regular rate, Normal S1, Normal S2, No murmurs, Other Lungs: Clear Abdomen: Normal bowel sounds, Soft Extremities: No clubbing Skin: Other ( ) Labs LABS Laboratory Tests Test 12/24/16 04:40 Sodium Level 136mmol/L (136-145) Potassium Level 4.8mmol/L (3.5-5.1) Chloride Level 95mmol/L (98-107) Carbon Dioxide Level 27mmol/L (21-32) Anion Gap 14 (6-14) Blood Urea Nitrogen 66mg/dL (8-26) Creatinine 6.9mg/dL (0.7-1.3) Estimated GFR (Cockcroft-Gault) 10.3 Glucose Level 106mg/dL (70-99) Calcium Level 9.7mg/dL (8.5-10.1) Assessment and Plan Assessmemt and Plan Problems Medical Problems: (1) ARF (acute renal failure) Status: Acute (2) CAP (community acquired pneumonia) Status: Acute Problems: Comment Review of Relevant I have reviewed the following items immanuel (where applicable) has been applied. Labs Laboratory Tests Test 12/23/16 06:15 12/24/16 04:40 Sodium Level 137mmol/L (136-145) 136mmol/L (136-145) Potassium Level 4.6mmol/L (3.5-5.1) 4.8mmol/L (3.5-5.1) Chloride Level 95mmol/L (98-107) 95mmol/L (98-107) Carbon Dioxide Level 28mmol/L (21-32) 27mmol/L (21-32) Anion Gap 14 (6-14) 14 (6-14) Blood Urea Nitrogen 40mg/dL (8-26) 66mg/dL (8-26) Creatinine 5.0mg/dL (0.7-1.3) 6.9mg/dL (0.7-1.3) Estimated GFR (Cockcroft-Gault) 15.0 10.3 Glucose Level 107mg/dL (70-99) 106mg/dL (70-99) Calcium Level 9.6mg/dL (8.5-10.1) 9.7mg/dL (8.5-10.1) Laboratory Tests Test 12/24/16 04:40 Sodium Level 136mmol/L (136-145) Potassium Level 4.8mmol/L (3.5-5.1) Chloride Level 95mmol/L (98-107) Carbon Dioxide Level 27mmol/L (21-32) Anion Gap 14 (6-14) Blood Urea Nitrogen 66mg/dL (8-26) Creatinine 6.9mg/dL (0.7-1.3) Estimated GFR (Cockcroft-Gault) 10.3 Glucose Level 106mg/dL (70-99) Calcium Level 9.7mg/dL (8.5-10.1) Microbiology 12/07/16 Blood Culture - Final, Complete NO GROWTH AFTER 5 DAYS 12/07/16 Stool Culture - Final, Complete 12/07/16 Stool Culture Result 1 (NEFTALI) - Final, Complete 12/07/16 Campylobacter Antigen Assay - Final, Complete 12/07/16 Campylobactor Result 1 - Final, Complete 12/07/16 Shiga Toxin Test - Final, Complete 12/12/16 AFB Specimen Processing Tissue - Final, Resulted 12/12/16 Acid Fast Bacilli Culture, Resulted Pending 12/12/16 Gram Stain - Final, Resulted 12/12/16 Fungal Culture - Preliminary, Resulted 12/12/16 Fungal Culture Result 1 - Preliminary, Resulted 12/12/16 Urine Culture - Final, Complete 12/12/16 Urine Culture Result 1 (NEFTALI) - Final, Complete Medications Current Medications Ketorolac Tromethamine 30 mg 30 mg 1X ONCE IV Last administered on 12/07/16 14:34; Start 12/07/16 at 14:30; Stop 12/07/16 at 14:31; Status DC Sodium Chloride 1,000 ml @ 1,000 mls/hr 1X ONCE IV Last administered on 14:34; Start 12/07/16 at 14:30; Stop 12/07/16 at 15:29; Status DC Ceftriaxone Sodium 1 gm/ Sodium Chloride 50 ml @ 100 mls/hr Q24H IV ; Start at 15:30; Stop 12/08/16 at 15:30; Status DC Azithromycin 250 ml @ 250 mls/hr 1X ONCE IV Last administered on 12/07/16 15 :48; Start 12/07/16 at 15:15; Stop 12/07/16 at 16:14; Status DC Sodium Chloride 1,000 ml @ 1,000 mls/hr 1X ONCE IV Last administered on 16:09; Start 12/07/16 at 15:15; Stop 12/07/16 at 16:14; Status DC Ceftriaxone Sodium 50 ml @ 100 mls/hr 1X ONCE IV Last administered on 15:29; Start 12/07/16 at 15:15; Stop 12/07/16 at 15:44; Status DC Sodium Chloride (Iv Sodium Chloride 0.9% 1000ml Bag) 1,000 ml @ 150 mls/hr 1X ONCE IV Last administered on 12/07/16 18:10; Start 12/07/16 at 15:15; Stop 11/11 at 21:54; Status DC Famotidine (Pepcid) 20 mg 1X ONCE IVP Last administered on 12/07/16 15:48; Start 12/07/16 at 15:45; Stop 12/07/16 at 15:46; Status DC Ondansetron HCl 4 mg 4 mg 1X ONCE IV Last administered on 12/07/16 16:09; Start 12/07/16 at 16:15; Stop 12/07/16 at 16:16; Status DC Sodium Chloride (Iv Sodium Chloride 0.9% 1000ml Bag) 1,000 ml @ 150 mls/hr Q6H40M IV Last administered on 12/08/16 06:38; Start 12/07/16 at 16:30; Stop 12/08/16 at 14:21; Status DC Ondansetron HCl (Zofran) 4 mg PRN Q6HRS PRN IV NAUSEA/VOMITING Last administered on 12/19/16 02:59; Start 12/07/16 at 16:30 Acetaminophen (Tylenol) 500 mg PRN Q6HRS PRN PO MILD PAIN / TEMP Last administered on 12/09/16 15:04; Start 12/07/16 at 16:30 Morphine Sulfate 2 mg PRN Q2HR PRN IV PAIN Last administered on 12/08/16 05:28 ; Start 12/07/16 at 16:30 Zolpidem Tartrate (Ambien) 5 mg PRN QHS PRN PO INSOMNIA Last administered on 01:06; Start 12/07/16 at 16:30; Stop 12/08/16 at 10:03; Status DC Methocarbamol (Robaxin) 500 mg QID PO Last administered on 12/07/16 21:19; Start 12/07/16 at 17:00; Stop 12/08/16 at 10:03; Status DC Oxycodone/ Acetaminophen (Percocet 5/325) 1 tab PRN Q4HRS PRN PO SEVERE PAIN Last administered on 12/23/16 09:28; Start 12/07/16 at 16:30 Tramadol HCl (Ultram) 50 mg PRN Q6HRS PRN PO MODERATE PAIN Last administered on 12/07/16 17:11; Start 12/07/16 at 16:30 Nicotine (Nicoderm Cq 21mg) 1 patch PRN DAILY PRN TD SMOKING CESSATION; Start 12/07/16 at 16:30 Info (Do NOT chart on this placeholder) 1 each 1X ONCE MC ; Start 12/07/16 at 22:45; Stop 12/07/16 at 22:46; Status UNV Pneumococcal Polyvalent Vaccine (Do NOT chart on this placeholder) 1 each 1X ONCE MC ; Start 12/07/16 at 22:45; Stop 12/07/16 at 22:46; Status UNV Influenza Virus Vaccine Quadrival (Fluarix Quad [id number] Syringe) 0.5 ml ONCE ONCE VAX IM ; Start 12/08/16 at 09:00; Stop 12/08/16 at 09:01; Status DC Pneumococcal Polyvalent Vaccine (Pneumovax 23) 0.5 ml ONCE ONCE VAX IM ; Start 12/08/16 at 09:00; Stop 12/08/16 at 09:01; Status DC Labetalol HCl (Normodyne) 10 mg 1X ONCE IVP Last administered on 12/08/16 08: 56; Start 12/08/16 at 08:30; Stop 12/08/16 at 08:35; Status DC Alprazolam (Xanax) 0.5 mg 1X ONCE PO Last administered on 12/08/16 08:40; Start 12/08/16 at 08:45; Stop 12/08/16 at 08:46; Status DC Aspirin (Children'S Aspirin) 324 mg 1X ONCE PO Last administered on 12/08/16 13:44; Start 12/08/16 at 09:30; Stop 12/08/16 at 09:31; Status DC Aspirin (Jada Aspirin) 325 mg DAILYWBKFT PO ; Start 12/09/16 at 08:00; Stop at 08:00; Status DC Heparin Sodium (Porcine) 4000 unit 4,000 unit 1X ONCE IV ; Start 12/08/16 at 09 :30; Stop 12/08/16 at 14:21; Status DC Midazolam HCl 100 ml @ As Directed STK-MED ONCE IV ; Start 12/08/16 at 09:52; Stop 12/08/16 at 09:53; Status DC Propofol (Diprivan) 100 ml @ 0 mls/hr CONT PRN IV SEE I/O RECORD Last administered on 12/08/16 23:49; Start 12/08/16 at 10:00; Stop 12/21/16 at 10:34 ; Status DC Famotidine (Pepcid) 20 mg QHS IVP Last administered on 12/22/16 20:31; Start 12/08/16 at 21:00; Stop 12/23/16 at 11:25; Status DC Heparin Sodium (Porcine) 5000 unit 5,000 unit Q8HRS SQ ; Start 12/08/16 at 14:00 ; Stop 12/08/16 at 14:00; Status DC Norepinephrine Bitartrate 8 mg/ Sodium Chloride 258 ml @ 1.93 mls/hr CONT PRN IV SEE I/O RECORD; Start 12/08/16 at 10:15; Status Cancel Dopamine HCl/ Dextrose 250 ml @ As Directed STK-MED ONCE IV ; Start 12/08/16 at 10:07; Stop 12/08/16 at 10:08; Status DC Norepinephrine Bitartrate 8 mg/ Sodium Chloride 258 ml @ 0 mls/hr CONT PRN IV SEE I/O RECORD Last administered on 12/09/16 08:46; Start 12/08/16 at 10:15; Stop 12/09/16 at 11:47; Status DC Dopamine HCl/ Dextrose 250 ml @ 10.084 mls/ hr CONT PRN IV SEE I/O RECORD Last administered on 12/08/16 10:00; Start 12/08/16 at 10:15; Stop 12/21/16 at 10:35; Status DC Sodium Bicarbonate/ Sodium Chloride (Iv Sodium Chloride 0.45%) 1,050 ml @ 200 mls/hr Q5H15M IV Last administered on 12/09/16 05:11; Start 12/08/16 at 10:30 ; Stop 12/09/16 at 08:28; Status DC Phenylephrine HCl 1 mg STK-MED ONCE IV ; Start 12/08/16 at 10:25; Stop 12/08/16 at 10:26; Status DC Aspirin 300 mg 300 mg 1X ONCE NV ; Start 12/08/16 at 10:45; Stop 12/08/16 at 10 :46; Status DC Sodium Chloride 1,000 ml @ 1,000 mls/hr 1X ONCE IV Last administered on 10:00; Start 12/08/16 at 11:45; Stop 12/08/16 at 12:44; Status DC Sodium Chloride (Iv Sodium Chloride 0.9% 1000ml Bag) 1,000 ml @ 1,000 mls/hr 1X ONCE IV Last administered on 12/08/16 10:00; Start 12/08/16 at 11:45; Stop 12/08/16 at 12:44; Status DC Albuterol/ Ipratropium (Duoneb) 3 ml RTQID NEB Last administered on 12/08/16 19:44; Start 12/08/16 at 12:30; Stop 12/09/16 at 05:17; Status DC Budesonide 0.5 mg 0.5 mg RTBID NEB Last administered on 12/24/16 08:04; Start 12/08/16 at 12:30 Sodium Chloride 1,000 ml @ 1,000 mls/hr 1X ONCE IV Last administered on 11:00; Start 12/08/16 at 12:15; Stop 12/08/16 at 13:14; Status DC Sodium Chloride 1,000 ml @ 1,000 mls/hr 1X ONCE IV Last administered on 11:00; Start 12/08/16 at 12:15; Stop 12/08/16 at 13:14; Status DC Heparin Sodium/ Dextrose 500 ml @ 0 mls/hr CONT PRN IV SEE I/O RECORD Last administered on 12/09/16 13:11; Start 12/08/16 at 12:45; Stop 12/13/16 at 13:10 ; Status DC Heparin Sodium (Porcine) 1,350 unit PRN Q6HRS PRN IV FOR UFH LEVEL LESS THAN 0.2 Last administered on 12/09/16 05:47; Start 12/08/16 at 12:45; Stop at 13:10; Status DC Etomidate (Amidate) 20 mg STK-MED ONCE IV ; Start 12/08/16 at 13:00; Stop at 13:01; Status DC Succinylcholine Chloride 200 mg 200 mg STK-MED ONCE .ROUTE ; Start 12/08/16 at 13:00; Stop 12/08/16 at 13:01; Status DC Piperacillin Sod/ Tazobactam Sod 3.375 gm/Sodium Chloride 50 ml @ 100 mls/hr Q6HRS IV ; Start 12/08/16 at 18:00; Stop 12/08/16 at 18:00; Status DC Vancomycin HCl 1 gm/Sodium Chloride 250 ml @ 250 mls/hr 1X ONCE IV Last administered on 12/08/16 14:21; Start 12/08/16 at 14:00; Stop 12/08/16 at 14:59 ; Status DC Piperacillin Sod/ Tazobactam Sod 2.25 gm/Sodium Chloride 50 ml @ 100 mls/hr Q6HRS IV Last administered on 12/09/16 06:17; Start 12/08/16 at 14:00; Stop at 08:25; Status DC Midazolam HCl 100 ml @ 0 mls/hr CONT PRN IV SEE I/O RECORD Last administered on 12/17/16 04:53; Start 12/08/16 at 10:30; Stop 12/21/16 at 10:36; Status DC Fentanyl Citrate (Fentanyl 600 Mcg/30 ml MANAGER INTERNAL) 30 ml @ 0 mls/hr CONT PRN IV PROTOCOL Last administered on 12/17/16 04:54; Start 12/09/16 at 05:15 Fentanyl Citrate (Fentanyl 2ml Vial) 25 mcg PRN Q1HR PRN IV COMM; Start at 05:15 Fentanyl Citrate (Fentanyl 2ml Vial) 50 mcg PRN Q1HR PRN IV COMM Last administered on 12/18/16 21:54; Start 12/09/16 at 05:15 Ipratropium [place]on (Atrovent) 0.5 mg RTQID NEB Last administered on 12/24/16 08:04; Start 12/09/16 at 08:00 Aspirin (Children'S Aspirin) 81 mg DAILYWBKFT PO Last administered on 08:27; Start 12/09/16 at 08:00 Chlorhexidine Gluconate 15 ml 15 ml BID MM Last administered on 12/18/16 21:49 ; Start 12/09/16 at 09:00; Stop 12/19/16 at 08:54; Status DC Sodium Bicarbonate 150 meq/Dextrose 1,150 ml @ 100 mls/hr [id number] IV Last administered on 12/10/16 09:34; Start 12/09/16 at 09:00; Stop 12/10/16 at 12:14 ; Status DC Piperacillin Sod/ Tazobactam Sod 3.375 gm/Sodium Chloride 50 ml @ 100 mls/hr Q6HRS IV Last administered on 12/11/16 06:01; Start 12/09/16 at 12:00; Stop at 07:47; Status DC Norepinephrine Bitartrate 16 mg/ Sodium Chloride 266 ml @ 0.99 mls/hr CONT PRN IV SEE I/O RECORD Last administered on 12/09/16 20:36; Start 12/09/16 at 12 :00; Stop 12/21/16 at 10:35; Status DC Doxycycline Hyclate/Dextrose 100 ml @ 50 mls/hr Q12HR IV Last administered on 12/13/16 20:50; Start 12/09/16 at 13:00; Stop 12/14/16 at 08:34; Status DC Atropine Sulfate 0.5 mg STK-MED ONCE .ROUTE ; Start 12/08/16 at 10:30; Stop at 13:18; Status DC Epinephrine HCl 3 mg STK-MED ONCE .ROUTE ; Start 12/08/16 at 10:30; Stop at 13:18; Status DC Calcium Gluconate 1000 mg 1,000 mg 1X ONCE IVP ; Start 12/10/16 at 10:00; Stop 12/10/16 at 10:01; Status UNV Magnesium Sulfate/ Dextrose 50 ml @ 25 mls/hr 1X ONCE IV Last administered on 12/10/16 11:40; Start 12/10/16 at 12:00; Stop 12/10/16 at 13:59; Status DC Calcium Gluconate 1000 mg/Sodium Chloride 110 ml @ 220 mls/hr 1X ONCE IV Last administered on 12/10/16 11:36; Start 12/10/16 at 12:00; Stop 12/10/16 at 12:29; Status DC Magnesium Sulfate/ Dextrose 50 ml @ 25 mls/hr PRN DAILY PRN IV for Mag < 1.7 on am labs; Start 12/10/16 at 12:15; Stop 12/13/16 at 09:57; Status DC Amino Acids/ Glycerin/ Electrolytes 1,000 ml @ 80 mls/hr [id number] IV ; Start at 12:30; Stop 12/10/16 at 12:30; Status DC Albumin Human (Albuminar) 100 ml @ 100 mls/hr TID IV ; Start 12/10/16 at 14:00 ; Stop 12/10/16 at 14:00; Status DC Calcium Gluconate 2000 mg 2,000 mg TID IVP ; Start 12/10/16 at 14:00; Stop 12/10 at 14:00; Status DC Piperacillin Sod/ Tazobactam Sod 2.25 gm/Sodium Chloride 50 ml @ 100 mls/hr Q6HRS IV Last administered on 12/18/16 05:58; Start 12/11/16 at 12:00; Stop at 07:17; Status DC Linezolid (Zyvox Premix) 300 ml @ 300 mls/hr Q12HR IV Last administered on 21:24; Start 12/11/16 at 09:00; Stop 12/18/16 at 07:17; Status DC Info 1 each 1 each PRN DAILY PRN MC SEE COMMENTS Last administered on 08:21; Start 12/11/16 at 08:15; Stop 12/13/16 at 13:13; Status DC Potassium Phosphate/Sodium Chloride (Potassium Phosphate/Iv Sodium Chloride 0.9 % 100ml) 104.5333 ml @ 52.267 m... Q2H IV Last administered on 12/11/16 17:22 ; Start 12/11/16 at 09:00; Stop 12/11/16 at 14:59; Status DC Furosemide 20 mg 20 mg 1X ONCE IVP Last administered on 12/11/16 11:10; Start 12/11/16 at 10:00; Stop 12/11/16 at 10:03; Status DC Dobutamine HCl/ Dextrose 250 ml @ 0 mls/hr CONT PRN IV SEE I/O RECORD Last administered on 12/11/16 15:05; Start 12/11/16 at 14:45; Stop 12/23/16 at 11:24 ; Status DC Magnesium Sulfate/ Dextrose 50 ml @ 25 mls/hr PRN DAILY PRN IV for Mag < 1.7 on am labs; Start 12/12/16 at 08:45; Stop 12/13/16 at 09:57; Status DC Potassium Chloride 50 ml @ 50 mls/hr PRN Q6HRS PRN IV For K < 3.7; Start at 08:45; Stop 12/13/16 at 09:57; Status DC Potassium Chloride (KCl Premix 20meq) 50 ml @ 50 mls/hr PRN Q2HR PRN IV total of 40mEq for K < 3.5; Start 12/12/16 at 08:45; Stop 12/13/16 at 09:57; Status DC Acetylcysteine 1200 mg 1,200 mg BID PO Last administered on 12/13/16 20:50; Start 12/12/16 at 09:00; Stop 12/14/16 at 08:17; Status DC Potassium Chloride (KCl Premix 20meq) 50 ml @ 50 mls/hr Q1H IV Last administered on 12/12/16 13:16; Start 12/12/16 at 09:00; Stop 12/12/16 at 10:59 ; Status DC Lidocaine/Sodium Bicarbonate 20 ml 20 ml STK-MED ONCE IJ ; Start 12/12/16 at 12: 13; Stop 12/12/16 at 12:14; Status DC Heparin Sodium/ Sodium Chloride 500 ml @ As Directed STK-MED ONCE .ROUTE ; Start 12/12/16 at 12:14; Stop 12/12/16 at 12:15; Status DC Lidocaine/Sodium Bicarbonate (Buffered Lidocaine 1%) 3 ml 1X ONCE IJ Last administered on 12/12/16 13:08; Start 12/12/16 at 12:15; Stop 12/12/16 at 12:17 ; Status DC Heparin Sodium (Porcine) 2,500 unit 1X ONCE INT CAT Last administered on 13:08; Start 12/12/16 at 12:15; Stop 12/12/16 at 12:17; Status DC Heparin Sodium/ Sodium Chloride 60 unit 60 unit 1X ONCE IV Last administered on 12/12/16 12:15; Start 12/12/16 at 12:15; Stop 12/12/16 at 12:17; Status DC Heparin Sodium/ Sodium Chloride 1,500 ml @ As Directed STK-MED ONCE .ROUTE ; Start 12/12/16 at 15:03; Stop 12/12/16 at 15:04; Status DC Lidocaine HCl 20 ml STK-MED ONCE .ROUTE ; Start 12/12/16 at 15:03; Stop at 15:04; Status DC Iodixanol (Visipaque 320) 100 ml STK-MED ONCE .ROUTE ; Start 12/12/16 at 15:04; Stop 12/12/16 at 15:05; Status DC Heparin Sodium/ Sodium Chloride 1,000 unit 1X ONCE IART Last administered on t 15:41; Start 12/12/16 at 15:30; Stop 12/12/16 at 15:32; Status DC Iodixanol (Visipaque 320) 100 ml 1X ONCE IART Last administered on 12/12/16 15:41; Start 12/12/16 at 15:30; Stop 12/12/16 at 15:32; Status DC Lidocaine HCl 4 ml 4 ml 1X ONCE IJ Last administered on 12/12/16 15:41; Start 12/12/16 at 15:30; Stop 12/12/16 at 15:32; Status DC Potassium Chloride 50 ml @ 50 mls/hr 1X ONCE IV Last administered on 04:13; Start 12/13/16 at 04:15; Stop 12/13/16 at 05:14; Status DC Potassium Chloride 50 ml @ 50 mls/hr 1X ONCE IV Last administered on 03:13; Start 12/13/16 at 03:15; Stop 12/13/16 at 04:14; Status DC Potassium Chloride 50 ml @ 50 mls/hr Q1H IV ; Start 12/13/16 at 09:00; Stop at 09:00; Status DC Furosemide 100 mg/ Sodium Chloride 100 ml @ 0 mls/hr CONT PRN IV SEE I/O RECORD Last administered on 12/13/16 11:43; Start 12/13/16 at 10:00; Stop 12/14 at 08:17; Status DC Magnesium Sulfate/ Dextrose 50 ml @ 25 mls/hr PRN DAILY PRN IV for Mag < 1.7 on am labs; Start 12/13/16 at 10:00 Potassium Chloride 50 ml @ 50 mls/hr PRN Q6HRS PRN IV For K < 3.7 Last administered on 12/15/16 01:08; Start 12/13/16 at 10:00 Potassium Chloride 50 ml @ 50 mls/hr PRN Q2HR PRN IV total of 40mEq for K < 3.5; Start 12/13/16 at 10:00 Potassium Phosphate 40 mmol/ Sodium Chloride 113.3333 ml @ 52.267 m... PRN 1X PRN IV SEE COMMENTS; Start 12/13/16 at 10:00; Stop 12/13/16 at 23:59; Status DC Sodium Chloride 1,000 ml @ 1,000 mls/hr Q1H PRN IV hypotension; Start 12/13/16 at 14:51; Stop 12/13/16 at 20:50; Status DC Sodium Chloride (Iv Sodium Chloride 0.9% 1000ml Bag) 1,000 ml @ 400 mls/hr Q2H30M PRN IV PATENCY; Start 12/13/16 at 14:51; Stop 12/14/16 at 02:50; Status DC Info (PHARMACY MONITORING -- do not chart) 1 each PRN DAILY PRN MC SEE COMMENTS ; Start 12/13/16 at 15:00; Status UNV Info 1 each 1 each PRN DAILY PRN MC SEE COMMENTS; Start 12/13/16 at 15:00; Stop 12/15/16 at 08:35; Status DC Sodium Phosphate 0.4 mmol/Dextrose 1 ml @ 50 mls/hr BID IV ; Start 12/14/16 at 09:00; Status UNV Albumin Human (Albuminar) 100 ml @ 100 mls/hr TID IV Last administered on 12/15 21:14; Start 12/14/16 at 09:00; Stop 12/15/16 at 21:59; Status DC Darbepoetin Koffi 60 mcg 60 mcg [id number] SQ Last administered on 12/21/16 22:29 ; Start 12/14/16 at 21:00 Sodium Phosphate/ Dextrose 113.3333 ml @ 28.333 m... Q4H IV Last administered on 12/14/16 14:59; Start 12/14/16 at 09:00; Stop 12/14/16 at 16:59; Status DC Info (PHARMACY MONITORING -- do not chart) 1 each PRN DAILY PRN MC SEE COMMENTS ; Start 12/14/16 at 11:00; Status UNV Info 1 each 1 each PRN DAILY PRN MC SEE COMMENTS; Start 12/14/16 at 11:00; Status UNV Albumin Human 200 ml @ 200 mls/hr 1X PRN PRN IV Hypotension; Start 12/14/16 at 13:30; Stop 12/14/16 at 19:00; Status DC Sodium Chloride 1,000 ml @ 1,000 mls/hr Q1H PRN IV hypotension; Start 12/15/16 at 06:32; Stop 12/15/16 at 09:09; Status DC Albumin Human 200 ml @ 200 mls/hr 1X PRN PRN IV Hypotension Last administered on 12/15/16 07:38; Start 12/15/16 at 06:45; Stop 12/15/16 at 12:44; Status DC Sodium Chloride (Iv Sodium Chloride 0.9% 1000ml Bag) 1,000 ml @ 400 mls/hr Q2H30M PRN IV PATENCY; Start 12/15/16 at 06:32; Stop 12/15/16 at 18:31; Status DC Info 1 each 1 each PRN DAILY PRN MC SEE COMMENTS; Start 12/15/16 at 06:45 Piperacillin Sod/ Tazobactam Sod 2.25 gm/Sodium Chloride 50 ml @ 100 mls/hr Q8HRS IV ; Start 12/15/16 at 14:00; Stop 12/15/16 at 14:00; Status DC Piperacillin Sod/ Tazobactam Sod 2.25 gm/Sodium Chloride 50 ml @ 100 mls/hr Q6HRS IV ; Start 12/15/16 at 12:00; Status Cancel Dexmedetomidine HCl 200 mcg/ Sodium Chloride 50 ml @ 0 mls/hr CONT PRN IV PER PROTOCOL Last administered on 12/17/16 18:11; Start 12/16/16 at 12:15; Stop at 07:51; Status DC Sodium Chloride (Iv Sodium Chloride 0.9% 500ml Bag) 500 ml @ 500 mls/hr 1X PRN PRN IV SEE COMMENTS; Start 12/16/16 at 12:15 Atropine Sulfate 0.5 mg 0.5 mg PRN Q5MIN PRN IV SEE COMMENTS; Start 12/16/16 at 12:15 Sodium Chloride 1,000 ml @ 1,000 mls/hr Q1H PRN IV hypotension; Start 12/16/16 at 20:04; Stop 12/17/16 at 02:03; Status DC Albumin Human (Albuminar) 200 ml @ 200 mls/hr 1X PRN PRN IV Hypotension Last administered on 12/16/16 20:30; Start 12/16/16 at 20:15; Stop 12/17/16 at 02:14 ; Status DC Sodium Chloride (Normal Saline Flush) 10 ml 1X PRN PRN IV AP catheter pack; Start 12/16/16 at 20:15; Stop 12/17/16 at 20:14; Status DC Sodium Chloride 10 ml 10 ml 1X PRN PRN IV TAX ACCOUNTANT catheter pack; Start 12/16/16 at 20:15; Stop 12/17/16 at 20:14; Status DC Sodium Chloride (Iv Sodium Chloride 0.9% 1000ml Bag) 1,000 ml @ 400 mls/hr Q2H30M PRN IV PATENCY; Start 12/16/16 at 20:04; Stop 12/17/16 at 08:03; Status DC Info (PHARMACY MONITORING -- do not chart) 1 each PRN DAILY PRN MC SEE COMMENTS ; Start 12/16/16 at 20:15; Status UNV Info (PHARMACY MONITORING -- do not chart) 1 each PRN DAILY PRN MC SEE COMMENTS ; Start 12/16/16 at 20:15; Status UNV Enoxaparin Sodium 40 mg 40 mg Q24H SQ Last administered on 12/18/16 16:19; Start 12/17/16 at 16:00; Stop 12/19/16 at 07:31; Status DC Albumin Human (Albuminar) 100 ml @ 100 mls/hr 1X ONCE IV ; Start 12/17/16 at 20:00; Stop 12/17/16 at 20:59; Status DC Heparin Sodium (Porcine) 5,000 unit Q12HR SQ Last administered on 12/24/16 08: 38; Start 12/19/16 at 09:00 Furosemide 40 mg 40 mg 1X ONCE IVP Last administered on 12/19/16 08:13; Start 12/19/16 at 08:00; Stop 12/19/16 at 08:01; Status DC Potassium Chloride (KCl Premix 20meq) 50 ml @ 25 mls/hr Q2H IV Last administered on 12/19/16 08:16; Start 12/19/16 at 08:30; Stop 12/19/16 at 10:29 ; Status DC Lorazepam (Ativan) 2 mg STK-MED ONCE .ROUTE ; Start 12/19/16 at 10:51; Stop at 10:52; Status DC Lorazepam (Ativan) 4 mg 1X ONCE IV Last administered on 12/19/16 11:15; Start 12/19/16 at 11:15; Stop 12/19/16 at 11:16; Status DC Lorazepam (Ativan) 2 mg PRN Q2HRS PRN IV Seizure Last administered on 16:44; Start 12/19/16 at 11:30 Lorazepam (Ativan) 4 mg PRN Q2HRS PRN IV Seizure; Start 12/19/16 at 11:30 Hydralazine HCl (Apresoline) 10 mg PRN Q4HRS PRN IVP ELEVATED BP, SEE COMMENTS ; Start 12/19/16 at 12:00 Info (PHARMACY MONITORING -- do not chart) 1 each PRN DAILY PRN MC SEE COMMENTS ; Start 12/19/16 at 14:00; Status UNV Info (PHARMACY MONITORING -- do not chart) 1 each PRN DAILY PRN MC SEE COMMENTS ; Start 12/19/16 at 14:00; Status UNV Lorazepam 1 mg 1 mg PRN Q4HRS PRN IV ANXIETY / AGITATION; Start 12/19/16 at 16: 30 Levetiracetam/ Sodium Chloride (Keppra/Iv Sodium Chloride 0.9% 100ml) 105 ml @ 400 mls/hr Q12HR IV Last administered on 12/21/16 09:44; Start 12/19/16 at 17: 00; Stop 12/21/16 at 13:44; Status DC Lorazepam 2 mg 2 mg PRN Q4HRS PRN IV ANXIETY / AGITATION Last administered on 04:59; Start 12/19/16 at 16:30 Amino Acids/ Glycerin/ Electrolytes (Procalamine) 1,000 ml @ 80 mls/hr [id number] IV Last administered on 12/22/16 04:52; Start 12/20/16 at 11:00; Stop at 12:55; Status DC Barium Sulfate (Varibar Honey) 250 ml 1X ONCE PO ; Start 12/20/16 at 14:00; Stop 12/20/16 at 14:07; Status DC Barium Sulfate (Varibar Thin Liquid) 148 gm 1X ONCE PO Last administered on 15:17; Start 12/20/16 at 15:15; Stop 12/20/16 at 15:16; Status DC Levetiracetam (Keppra) 250 mg BID PO Last administered on 12/24/16 08:26; Start 12/21/16 at 21:00 Sodium Chloride (Normal Saline Flush) 10 ml 1X PRN PRN IV AP catheter pack; Start 12/21/16 at 19:45; Stop 12/22/16 at 19:44; Status DC Sodium Chloride (Normal Saline Flush) 10 ml 1X PRN PRN IV TAX ACCOUNTANT catheter pack; Start 12/21/16 at 19:45; Stop 12/22/16 at 19:44; Status DC Info (PHARMACY MONITORING -- do not chart) 1 each PRN DAILY PRN MC SEE COMMENTS ; Start 12/21/16 at 19:45; Status UNV Info 1 each 1 each PRN DAILY PRN MC SEE COMMENTS; Start 12/21/16 at 19:45; Status UNV Sodium Chloride 1,000 ml @ 1,000 mls/hr Q1H PRN IV hypotension; Start 12/22/16 at 08:36; Stop 12/22/16 at 14:35; Status DC Albumin Human (Albuminar) 200 ml @ 200 mls/hr 1X PRN PRN IV Hypotension; Start 12/22/16 at 08:45; Stop 12/22/16 at 14:44; Status DC Acetaminophen (Tylenol) 500 mg 1X PRN PRN PO MILD PAIN / TEMP; Start 12/22/16 at 08:45; Stop 12/23/16 at 08:44; Status DC Diphenhydramine HCl (Benadryl) 25 mg 1X PRN PRN IV ITCHING; Start 12/22/16 at 08:45; Stop 12/23/16 at 08:44; Status DC Diphenhydramine HCl (Benadryl) 25 mg 1X PRN PRN IV ITCHING; Start 12/22/16 at 08:45; Stop 12/23/16 at 08:44; Status DC Labetalol HCl (Normodyne) 10 mg PRN Q1HR PRN IVP SBP > 180; Start 12/22/16 at 08:45; Stop 12/23/16 at 08:44; Status DC Clonidine HCl (Catapres) 0.1 mg 1X PRN PRN PO SBP > 180; Start 12/22/16 at 08: 45; Stop 12/23/16 at 08:44; Status DC Info (PHARMACY MONITORING -- do not chart) 1 each PRN DAILY PRN MC SEE COMMENTS ; Start 12/22/16 at 08:45; Status UNV Famotidine (Pepcid) 20 mg Q48H PO Last administered on 12/23/16t 20:47; Start 12/23/16 at 21:00 Active Scripts Active Ultram (Tramadol Hcl) 50 Mg Tablet 50 Mg PO Q6H PRN Robaxin (Methocarbamol) 500 Mg Tablet 500 Mg PO QID Reported Percocet 5-325 Mg Tablet (Oxycodone/Acetaminophen) 1 Each Tablet 1-2 Tab PO Q4HRS Vitals/I & O Vital Sign - Last 24 Hours 12/23/16 12/23/16 12/23/16 12/23/16 12:03 14:03 16:36 19:28 Temp 97.8 97.7 97.8 97.7 Pulse 82 81 Resp 18 18 B/P 101/70 102/61 Pulse Ox 95 96 95 96 O2 Delivery Nasal Cannula Nasal Cannula Nasal Cannula Nasal Cannula O2 Flow Rate 4.0 4.0 4.0 12/23/16 12/23/16 12/23/16 12/24/16 19:39 20:10 23:41 03:00 Temp 97.6 97.7 97.6 97.7 Pulse 87 84 Resp 18 18 B/P 107/57 101/70 Pulse Ox 98 96 99 O2 Delivery Nasal Cannula Nasal Cannula O2 Flow Rate 3.0 3.0 12/24/16 12/24/16 12/24/16 12/24/16 07:18 08:00 08:07 11:15 Temp 97.5 97.6 97.5 97.6 Pulse 81 80 Resp 18 18 B/P 106/67 116/68 Pulse Ox 100 97 96 O2 Delivery Nasal Cannula Nasal Cannula Nasal Cannula Nasal Cannula O2 Flow Rate 3.0 2.0 2.0 3.0 Intake and Output 12/23/16 12/23/16 12/24/16 15:00 23:00 07:00 Intake Total 175 ml 75 ml 275 ml Balance 175 ml 75 ml 275 ml OSCAR SANTA MD Dec 24, 2016 11:57
--- NOTE | 2016-12-24 13:05 | PDOC ---
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 There is no signs of infection. He has clinically improved and there are strong palpable pedal pulses on exam. This is likely secondary to poor perfusion during is cardiac arrest and critical illness. Recommend monitoring the skin, it will likely take weeks for this to heal. If the toes do not heal may need amputation in the future. No intervention needed at this time. He needs follow up with wound care center in 2 -3 weeks following discharge. STEFANI RUELAS MD Dec 24, 2016 13:05
--- NOTE | 2016-12-24 14:02 | RAD ---
EXAM: Renal sonogram. HISTORY: Renal failure. TECHNIQUE: Sonographic imaging of the kidneys and bladder was performed. COMPARISON: None. FINDINGS: The right kidney measures 11.0 cm [id number] and the left kidney measures 12.1 cm [id number]. There is a heterogeneous solid-appearing lesion within the upper mid zone of the right kidney with central echogenicity. There is lesion measures 3.5 cm in maximum dimension. There is no hydronephrosis. The bladder is unremarkable. IMPRESSION: 1. Suggestion of a 3.5 cm heterogeneous partially hyperechoic lesion within the right kidney. This does not demonstrate clear internal blood flow. Renal protocol CT or MRI is recommended for characterization if clinically feasible. 2. Otherwise, unremarkable renal sonogram.
--- NOTE | 2016-12-24 14:05 | RAD ---
EXAM: Bilateral lower extremity arterial Doppler sonogram. HISTORY: Black fifth toes. TECHNIQUE: Grayscale and color Doppler sonographic imaging of the lower extremity arteries with spectral waveform analysis was performed. COMPARISON: None. FINDINGS: There is mild atherosclerotic plaque throughout the lateral lower extremity arteries. There are biphasic waveforms throughout the bilateral lower extremity arteries, with exception of monophasic waveforms within the left posterior tibial artery and dorsalis pedis artery. The peak systolic velocities on the right measure 133 cm/s within the common femoral artery, 65 cm/s within the deep femoral artery, 83 cm/s within the proximal superficial femoral artery, 115 cm/s within the mid superficial femoral artery, 81 cm/s within the distal superficial femoral artery, 105 cm/s within the popliteal artery, 72 cm/s within the posterior tibial artery, 67 cm/s within the peroneal artery, 49 cm/s within the anterior tibial artery, and 67 cm/s within the dorsalis pedis artery. The peak systolic velocities on the left measure 142 cm/s within the common femoral artery, 122 cm/s within the deep femoral artery, 102 cm/s within the proximal superficial femoral artery, 134 cm/s within the mid superficial femoral artery, 63 cm/s within the distal superficial femoral artery, 53 cm/s within the popliteal artery, 72 cm/s within the posterior tibial artery, 69 cm/s within the peroneal artery, 44 cm/s within the anterior tibial artery, and 34 cm/s within the dorsalis pedis artery. IMPRESSION: 1. Mild atherosclerotic plaque within the bilateral lower extremity arteries. There is no evidence of occlusion. 2. Monophasic waveforms within the left posterior tibial and dorsalis pedis arteries, suggesting a component of proximal stenosis. 3. Bilateral lower extremity arteries peak systolic velocities, described above.
[2016-12-24 14:48] VITALS: BP 98/69
--- NOTE | 2016-12-24 18:13 | PDOC ---
PROGRESS NOTES Assessment Problems Medical Problems: (1) ARF (acute renal failure) Status: Acute (2) CAP (community acquired pneumonia) Status: Acute Problems: Plan Seizure, provoked. NO new seizures noted. Cocaine, Cannabinoids, opiates, benzo positive in system. 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 Metabolic encephalopathy. Respiratory failure. CVA symptoms but no evidence of acute CVA this time. RECOMMENDATIONS/PLAN: Ativan 1 -2 mg IV PRN q4h if has seizures. Keppra to 250 mg bid and taper it off in 2 weeks. His seizures were not epileptic. previously seen by DR MOYER Treat medical diseases. Patient education for substances and drugs abstinence. Discussed in detail with his in all detail Brain MRI 12/19: No acute CVA. EEG on 12/19: No seizure activity except the posterior dominant rhythm is slow for his age. Subjective no acute events Objective Vital Signs Date Time Temp Pulse Resp B/P Pulse Ox O2 Delivery O2 Flow Rate FiO2 12/24/16 16:08 Nasal Cannula 2.0 12/24/16 14:48 97.3 85 18 98/69 94 97.3 Intake and Output 12/24/16 07:00 Intake Total 525 ml Balance 525 ml Intake Oral 0 ml Tube Feeding 525 ml # Voids 4 PHYSICAL EXAM General appearance is in subacute distress. HEENT: Normocephalic and nontraumatic. Eyes, nose, ears, and throat are unremarkable. Neck is supple. No lymphadenopathy. No bruits are heard over the carotid artery. No crepitus. Cardiovascular: S1, S2, regular rate and rhythm. Pulmonary: Decreased to auscultation bilaterally. Abdomen: Bowel sounds are positive. Extremities: No rash, lesions, or edema. No restriction of range of motion NEUROLOGICAL EXAMINATION: Awake. He speaks clearly at exam. Partially oriented to time, and knows place and person. PERRL. EOMI. CN: no focal findings. Muscle tone: within normal. Muscle strength: 5 DTR: 2 Plantar reflex: Flexor response bilaterally Gait: not examined in bed. Sensory exam: no abnormal findings. No obvious cerebellar signs elicited. F-T-N test not examed. Review of Relevant I have reviewed the following items immanuel (where applicable) has been applied. Labs Laboratory Tests Test 12/23/16 06:15 12/24/16 04:40 Sodium Level 137mmol/L (136-145) 136mmol/L (136-145) Potassium Level 4.6mmol/L (3.5-5.1) 4.8mmol/L (3.5-5.1) Chloride Level 95mmol/L (98-107) 95mmol/L (98-107) Carbon Dioxide Level 28mmol/L (21-32) 27mmol/L (21-32) Anion Gap 14 (6-14) 14 (6-14) Blood Urea Nitrogen 40mg/dL (8-26) 66mg/dL (8-26) Creatinine 5.0mg/dL (0.7-1.3) 6.9mg/dL (0.7-1.3) Estimated GFR (Cockcroft-Gault) 15.0 10.3 Glucose Level 107mg/dL (70-99) 106mg/dL (70-99) Calcium Level 9.6mg/dL (8.5-10.1) 9.7mg/dL (8.5-10.1) Laboratory Tests Test 12/24/16 04:40 Sodium Level 136mmol/L (136-145) Potassium Level 4.8mmol/L (3.5-5.1) Chloride Level 95mmol/L (98-107) Carbon Dioxide Level 27mmol/L (21-32) Anion Gap 14 (6-14) Blood Urea Nitrogen 66mg/dL (8-26) Creatinine 6.9mg/dL (0.7-1.3) Estimated GFR (Cockcroft-Gault) 10.3 Glucose Level 106mg/dL (70-99) Calcium Level 9.7mg/dL (8.5-10.1) Microbiology 12/07/16 Blood Culture - Final, Complete NO GROWTH AFTER 5 DAYS 12/07/16 Stool Culture - Final, Complete 12/07/16 Stool Culture Result 1 (NEFTALI) - Final, Complete 12/07/16 Campylobacter Antigen Assay - Final, Complete 12/07/16 Campylobactor Result 1 - Final, Complete 12/07/16 Shiga Toxin Test - Final, Complete 12/12/16 AFB Specimen Processing Tissue - Final, Resulted 12/12/16 Acid Fast Bacilli Culture, Resulted Pending 12/12/16 Gram Stain - Final, Resulted 12/12/16 Fungal Culture - Preliminary, Resulted 12/12/16 Fungal Culture Result 1 - Preliminary, Resulted 12/12/16 Urine Culture - Final, Complete 12/12/16 Urine Culture Result 1 (NEFTALI) - Final, Complete Medications Current Medications Ketorolac Tromethamine 30 mg 30 mg 1X ONCE IV Last administered on 12/07/16 14:34; Start 12/07/16 at 14:30; Stop 12/07/16 at 14:31; Status DC Sodium Chloride 1,000 ml @ 1,000 mls/hr 1X ONCE IV Last administered on 14:34; Start 12/07/16 at 14:30; Stop 12/07/16 at 15:29; Status DC Ceftriaxone Sodium 1 gm/ Sodium Chloride 50 ml @ 100 mls/hr Q24H IV ; Start at 15:30; Stop 12/08/16 at 15:30; Status DC Azithromycin 250 ml @ 250 mls/hr 1X ONCE IV Last administered on 12/07/16 15 :48; Start 12/07/16 at 15:15; Stop 12/07/16 at 16:14; Status DC Sodium Chloride 1,000 ml @ 1,000 mls/hr 1X ONCE IV Last administered on 16:09; Start 12/07/16 at 15:15; Stop 12/07/16 at 16:14; Status DC Ceftriaxone Sodium 50 ml @ 100 mls/hr 1X ONCE IV Last administered on 15:29; Start 12/07/16 at 15:15; Stop 12/07/16 at 15:44; Status DC Sodium Chloride (Iv Sodium Chloride 0.9% 1000ml Bag) 1,000 ml @ 150 mls/hr 1X ONCE IV Last administered on 12/07/16 18:10; Start 12/07/16 at 15:15; Stop 11/11 at 21:54; Status DC Famotidine (Pepcid) 20 mg 1X ONCE IVP Last administered on 12/07/16 15:48; Start 12/07/16 at 15:45; Stop 12/07/16 at 15:46; Status DC Ondansetron HCl 4 mg 4 mg 1X ONCE IV Last administered on 12/07/16 16:09; Start 12/07/16 at 16:15; Stop 12/07/16 at 16:16; Status DC Sodium Chloride (Iv Sodium Chloride 0.9% 1000ml Bag) 1,000 ml @ 150 mls/hr Q6H40M IV Last administered on 12/08/16 06:38; Start 12/07/16 at 16:30; Stop 12/08/16 at 14:21; Status DC Ondansetron HCl (Zofran) 4 mg PRN Q6HRS PRN IV NAUSEA/VOMITING Last administered on 12/19/16 02:59; Start 12/07/16 at 16:30 Acetaminophen (Tylenol) 500 mg PRN Q6HRS PRN PO MILD PAIN / TEMP Last administered on 12/09/16 15:04; Start 12/07/16 at 16:30 Morphine Sulfate 2 mg PRN Q2HR PRN IV PAIN Last administered on 12/08/16 05:28 ; Start 12/07/16 at 16:30 Zolpidem Tartrate (Ambien) 5 mg PRN QHS PRN PO INSOMNIA Last administered on 01:06; Start 12/07/16 at 16:30; Stop 12/08/16 at 10:03; Status DC Methocarbamol (Robaxin) 500 mg QID PO Last administered on 12/07/16 21:19; Start 12/07/16 at 17:00; Stop 12/08/16 at 10:03; Status DC Oxycodone/ Acetaminophen (Percocet 5/325) 1 tab PRN Q4HRS PRN PO SEVERE PAIN Last administered on 12/23/16 09:28; Start 12/07/16 at 16:30 Tramadol HCl (Ultram) 50 mg PRN Q6HRS PRN PO MODERATE PAIN Last administered on 12/07/16 17:11; Start 12/07/16 at 16:30 Nicotine (Nicoderm Cq 21mg) 1 patch PRN DAILY PRN TD SMOKING CESSATION; Start 12/07/16 at 16:30 Info (Do NOT chart on this placeholder) 1 each 1X ONCE MC ; Start 12/07/16 at 22:45; Stop 12/07/16 at 22:46; Status UNV Pneumococcal Polyvalent Vaccine (Do NOT chart on this placeholder) 1 each 1X ONCE MC ; Start 12/07/16 at 22:45; Stop 12/07/16 at 22:46; Status UNV Influenza Virus Vaccine Quadrival (Fluarix Quad [id number] Syringe) 0.5 ml ONCE ONCE VAX IM ; Start 12/08/16 at 09:00; Stop 12/08/16 at 09:01; Status DC Pneumococcal Polyvalent Vaccine (Pneumovax 23) 0.5 ml ONCE ONCE VAX IM ; Start 12/08/16 at 09:00; Stop 12/08/16 at 09:01; Status DC Labetalol HCl (Normodyne) 10 mg 1X ONCE IVP Last administered on 12/08/16 08: 56; Start 12/08/16 at 08:30; Stop 12/08/16 at 08:35; Status DC Alprazolam (Xanax) 0.5 mg 1X ONCE PO Last administered on 12/08/16 08:40; Start 12/08/16 at 08:45; Stop 12/08/16 at 08:46; Status DC Aspirin (Children'S Aspirin) 324 mg 1X ONCE PO Last administered on 12/08/16 13:44; Start 12/08/16 at 09:30; Stop 12/08/16 at 09:31; Status DC Aspirin (Jada Aspirin) 325 mg DAILYWBKFT PO ; Start 12/09/16 at 08:00; Stop at 08:00; Status DC Heparin Sodium (Porcine) 4000 unit 4,000 unit 1X ONCE IV ; Start 12/08/16 at 09 :30; Stop 12/08/16 at 14:21; Status DC Midazolam HCl 100 ml @ As Directed STK-MED ONCE IV ; Start 12/08/16 at 09:52; Stop 12/08/16 at 09:53; Status DC Propofol (Diprivan) 100 ml @ 0 mls/hr CONT PRN IV SEE I/O RECORD Last administered on 12/08/16 23:49; Start 12/08/16 at 10:00; Stop 12/21/16 at 10:34 ; Status DC Famotidine (Pepcid) 20 mg QHS IVP Last administered on 12/22/16 20:31; Start 12/08/16 at 21:00; Stop 12/23/16 at 11:25; Status DC Heparin Sodium (Porcine) 5000 unit 5,000 unit Q8HRS SQ ; Start 12/08/16 at 14:00 ; Stop 12/08/16 at 14:00; Status DC Norepinephrine Bitartrate 8 mg/ Sodium Chloride 258 ml @ 1.93 mls/hr CONT PRN IV SEE I/O RECORD; Start 12/08/16 at 10:15; Status Cancel Dopamine HCl/ Dextrose 250 ml @ As Directed STK-MED ONCE IV ; Start 12/08/16 at 10:07; Stop 12/08/16 at 10:08; Status DC Norepinephrine Bitartrate 8 mg/ Sodium Chloride 258 ml @ 0 mls/hr CONT PRN IV SEE I/O RECORD Last administered on 12/09/16 08:46; Start 12/08/16 at 10:15; Stop 12/09/16 at 11:47; Status DC Dopamine HCl/ Dextrose 250 ml @ 10.084 mls/ hr CONT PRN IV SEE I/O RECORD Last administered on 12/08/16 10:00; Start 12/08/16 at 10:15; Stop 12/21/16 at 10:35; Status DC Sodium Bicarbonate/ Sodium Chloride (Iv Sodium Chloride 0.45%) 1,050 ml @ 200 mls/hr Q5H15M IV Last administered on 12/09/16 05:11; Start 12/08/16 at 10:30 ; Stop 12/09/16 at 08:28; Status DC Phenylephrine HCl 1 mg STK-MED ONCE IV ; Start 12/08/16 at 10:25; Stop 12/08/16 at 10:26; Status DC Aspirin 300 mg 300 mg 1X ONCE MD ; Start 12/08/16 at 10:45; Stop 12/08/16 at 10 :46; Status DC Sodium Chloride 1,000 ml @ 1,000 mls/hr 1X ONCE IV Last administered on 10:00; Start 12/08/16 at 11:45; Stop 12/08/16 at 12:44; Status DC Sodium Chloride (Iv Sodium Chloride 0.9% 1000ml Bag) 1,000 ml @ 1,000 mls/hr 1X ONCE IV Last administered on 12/08/16 10:00; Start 12/08/16 at 11:45; Stop 12/08/16 at 12:44; Status DC Albuterol/ Ipratropium (Duoneb) 3 ml RTQID NEB Last administered on 12/08/16 19:44; Start 12/08/16 at 12:30; Stop 12/09/16 at 05:17; Status DC Budesonide 0.5 mg 0.5 mg RTBID NEB Last administered on 12/24/16 08:04; Start 12/08/16 at 12:30 Sodium Chloride 1,000 ml @ 1,000 mls/hr 1X ONCE IV Last administered on 11:00; Start 12/08/16 at 12:15; Stop 12/08/16 at 13:14; Status DC Sodium Chloride 1,000 ml @ 1,000 mls/hr 1X ONCE IV Last administered on 11:00; Start 12/08/16 at 12:15; Stop 12/08/16 at 13:14; Status DC Heparin Sodium/ Dextrose 500 ml @ 0 mls/hr CONT PRN IV SEE I/O RECORD Last administered on 12/09/16 13:11; Start 12/08/16 at 12:45; Stop 12/13/16 at 13:10 ; Status DC Heparin Sodium (Porcine) 1,350 unit PRN Q6HRS PRN IV FOR UFH LEVEL LESS THAN 0.2 Last administered on 12/09/16 05:47; Start 12/08/16 at 12:45; Stop at 13:10; Status DC Etomidate (Amidate) 20 mg STK-MED ONCE IV ; Start 12/08/16 at 13:00; Stop at 13:01; Status DC Succinylcholine Chloride 200 mg 200 mg STK-MED ONCE .ROUTE ; Start 12/08/16 at 13:00; Stop 12/08/16 at 13:01; Status DC Piperacillin Sod/ Tazobactam Sod 3.375 gm/Sodium Chloride 50 ml @ 100 mls/hr Q6HRS IV ; Start 12/08/16 at 18:00; Stop 12/08/16 at 18:00; Status DC Vancomycin HCl 1 gm/Sodium Chloride 250 ml @ 250 mls/hr 1X ONCE IV Last administered on 12/08/16 14:21; Start 12/08/16 at 14:00; Stop 12/08/16 at 14:59 ; Status DC Piperacillin Sod/ Tazobactam Sod 2.25 gm/Sodium Chloride 50 ml @ 100 mls/hr Q6HRS IV Last administered on 12/09/16 06:17; Start 12/08/16 at 14:00; Stop at 08:25; Status DC Midazolam HCl 100 ml @ 0 mls/hr CONT PRN IV SEE I/O RECORD Last administered on 12/17/16 04:53; Start 12/08/16 at 10:30; Stop 12/21/16 at 10:36; Status DC Fentanyl Citrate (Fentanyl 600 Mcg/30 ml [employer]ICE [employer] TECHNICIAN) 30 ml @ 0 mls/hr CONT PRN IV PROTOCOL Last administered on 12/17/16 04:54; Start 12/09/16 at 05:15; Stop at 12:16; Status DC Fentanyl Citrate (Fentanyl 2ml Vial) 25 mcg PRN Q1HR PRN IV COMM; Start at 05:15; Stop 12/24/16 at 12:16; Status DC Fentanyl Citrate (Fentanyl 2ml Vial) 50 mcg PRN Q1HR PRN IV COMM Last administered on 12/18/16 21:54; Start 12/09/16 at 05:15; Stop 12/24/16 at 12:16 ; Status DC Ipratropium Mobile (Atrovent) 0.5 mg RTQID NEB Last administered on 12/24/16 16:06; Start 12/09/16 at 08:00 Aspirin (Children'S Aspirin) 81 mg DAILYWBKFT PO Last administered on 08:27; Start 12/09/16 at 08:00 Chlorhexidine Gluconate 15 ml 15 ml BID MM Last administered on 12/18/16 21:49 ; Start 12/09/16 at 09:00; Stop 12/19/16 at 08:54; Status DC Sodium Bicarbonate 150 meq/Dextrose 1,150 ml @ 100 mls/hr [id number] IV Last administered on 12/10/16 09:34; Start 12/09/16 at 09:00; Stop 12/10/16 at 12:14 ; Status DC Piperacillin Sod/ Tazobactam Sod 3.375 gm/Sodium Chloride 50 ml @ 100 mls/hr Q6HRS IV Last administered on 12/11/16 06:01; Start 12/09/16 at 12:00; Stop at 07:47; Status DC Norepinephrine Bitartrate 16 mg/ Sodium Chloride 266 ml @ 0.99 mls/hr CONT PRN IV SEE I/O RECORD Last administered on 12/09/16 20:36; Start 12/09/16 at 12 :00; Stop 12/21/16 at 10:35; Status DC Doxycycline Hyclate/Dextrose 100 ml @ 50 mls/hr Q12HR IV Last administered on 12/13/16 20:50; Start 12/09/16 at 13:00; Stop 12/14/16 at 08:34; Status DC Atropine Sulfate 0.5 mg STK-MED ONCE .ROUTE ; Start 12/08/16 at 10:30; Stop at 13:18; Status DC Epinephrine HCl 3 mg STK-MED ONCE .ROUTE ; Start 12/08/16 at 10:30; Stop at 13:18; Status DC Calcium Gluconate 1000 mg 1,000 mg 1X ONCE IVP ; Start 12/10/16 at 10:00; Stop 12/10/16 at 10:01; Status UNV Magnesium Sulfate/ Dextrose 50 ml @ 25 mls/hr 1X ONCE IV Last administered on 12/10/16 11:40; Start 12/10/16 at 12:00; Stop 12/10/16 at 13:59; Status DC Calcium Gluconate 1000 mg/Sodium Chloride 110 ml @ 220 mls/hr 1X ONCE IV Last administered on 12/10/16 11:36; Start 12/10/16 at 12:00; Stop 12/10/16 at 12:29; Status DC Magnesium Sulfate/ Dextrose 50 ml @ 25 mls/hr PRN DAILY PRN IV for Mag < 1.7 on am labs; Start 12/10/16 at 12:15; Stop 12/13/16 at 09:57; Status DC Amino Acids/ Glycerin/ Electrolytes 1,000 ml @ 80 mls/hr [id number] IV ; Start at 12:30; Stop 12/10/16 at 12:30; Status DC Albumin Human (Albuminar) 100 ml @ 100 mls/hr TID IV ; Start 12/10/16 at 14:00 ; Stop 12/10/16 at 14:00; Status DC Calcium Gluconate 2000 mg 2,000 mg TID IVP ; Start 12/10/16 at 14:00; Stop 12/10 at 14:00; Status DC Piperacillin Sod/ Tazobactam Sod 2.25 gm/Sodium Chloride 50 ml @ 100 mls/hr Q6HRS IV Last administered on 12/18/16 05:58; Start 12/11/16 at 12:00; Stop at 07:17; Status DC Linezolid (Zyvox Premix) 300 ml @ 300 mls/hr Q12HR IV Last administered on 21:24; Start 12/11/16 at 09:00; Stop 12/18/16 at 07:17; Status DC Info 1 each 1 each PRN DAILY PRN MC SEE COMMENTS Last administered on 08:21; Start 12/11/16 at 08:15; Stop 12/13/16 at 13:13; Status DC Potassium Phosphate/Sodium Chloride (Potassium Phosphate/Iv Sodium Chloride 0.9 % 100ml) 104.5333 ml @ 52.267 m... Q2H IV Last administered on 12/11/16 17:22 ; Start 12/11/16 at 09:00; Stop 12/11/16 at 14:59; Status DC Furosemide 20 mg 20 mg 1X ONCE IVP Last administered on 12/11/16 11:10; Start 12/11/16 at 10:00; Stop 12/11/16 at 10:03; Status DC Dobutamine HCl/ Dextrose 250 ml @ 0 mls/hr CONT PRN IV SEE I/O RECORD Last administered on 12/11/16 15:05; Start 12/11/16 at 14:45; Stop 12/23/16 at 11:24 ; Status DC Magnesium Sulfate/ Dextrose 50 ml @ 25 mls/hr PRN DAILY PRN IV for Mag < 1.7 on am labs; Start 12/12/16 at 08:45; Stop 12/13/16 at 09:57; Status DC Potassium Chloride 50 ml @ 50 mls/hr PRN Q6HRS PRN IV For K < 3.7; Start at 08:45; Stop 12/13/16 at 09:57; Status DC Potassium Chloride (KCl Premix 20meq) 50 ml @ 50 mls/hr PRN Q2HR PRN IV total of 40mEq for K < 3.5; Start 12/12/16 at 08:45; Stop 12/13/16 at 09:57; Status DC Acetylcysteine 1200 mg 1,200 mg BID PO Last administered on 12/13/16 20:50; Start 12/12/16 at 09:00; Stop 12/14/16 at 08:17; Status DC Potassium Chloride (KCl Premix 20meq) 50 ml @ 50 mls/hr Q1H IV Last administered on 12/12/16 13:16; Start 12/12/16 at 09:00; Stop 12/12/16 at 10:59 ; Status DC Lidocaine/Sodium Bicarbonate 20 ml 20 ml STK-MED ONCE IJ ; Start 12/12/16 at 12: 13; Stop 12/12/16 at 12:14; Status DC Heparin Sodium/ Sodium Chloride 500 ml @ As Directed STK-MED ONCE .ROUTE ; Start 12/12/16 at 12:14; Stop 12/12/16 at 12:15; Status DC Lidocaine/Sodium Bicarbonate (Buffered Lidocaine 1%) 3 ml 1X ONCE IJ Last administered on 12/12/16 13:08; Start 12/12/16 at 12:15; Stop 12/12/16 at 12:17 ; Status DC Heparin Sodium (Porcine) 2,500 unit 1X ONCE INT CAT Last administered on 13:08; Start 12/12/16 at 12:15; Stop 12/12/16 at 12:17; Status DC Heparin Sodium/ Sodium Chloride 60 unit 60 unit 1X ONCE IV Last administered on 12/12/16 12:15; Start 12/12/16 at 12:15; Stop 12/12/16 at 12:17; Status DC Heparin Sodium/ Sodium Chloride 1,500 ml @ As Directed STK-MED ONCE .ROUTE ; Start 12/12/16 at 15:03; Stop 12/12/16 at 15:04; Status DC Lidocaine HCl 20 ml STK-MED ONCE .ROUTE ; Start 12/12/16 at 15:03; Stop at 15:04; Status DC Iodixanol (Visipaque 320) 100 ml STK-MED ONCE .ROUTE ; Start 12/12/16 at 15:04; Stop 12/12/16 at 15:05; Status DC Heparin Sodium/ Sodium Chloride 1,000 unit 1X ONCE IART Last administered on 15:41; Start 12/12/16 at 15:30; Stop 12/12/16 at 15:32; Status DC Iodixanol (Visipaque 320) 100 ml 1X ONCE IART Last administered on 12/12/16 15:41; Start 12/12/16 at 15:30; Stop 12/12/16 at 15:32; Status DC Lidocaine HCl 4 ml 4 ml 1X ONCE IJ Last administered on 12/12/16 15:41; Start 12/12/16 at 15:30; Stop 12/12/16 at 15:32; Status DC Potassium Chloride 50 ml @ 50 mls/hr 1X ONCE IV Last administered on 04:13; Start 12/13/16 at 04:15; Stop 12/13/16 at 05:14; Status DC Potassium Chloride 50 ml @ 50 mls/hr 1X ONCE IV Last administered on 03:13; Start 12/13/16 at 03:15; Stop 12/13/16 at 04:14; Status DC Potassium Chloride 50 ml @ 50 mls/hr Q1H IV ; Start 12/13/16 at 09:00; Stop at 09:00; Status DC Furosemide 100 mg/ Sodium Chloride 100 ml @ 0 mls/hr CONT PRN IV SEE I/O RECORD Last administered on 12/13/16 11:43; Start 12/13/16 at 10:00; Stop 12/14 at 08:17; Status DC Magnesium Sulfate/ Dextrose 50 ml @ 25 mls/hr PRN DAILY PRN IV for Mag < 1.7 on am labs; Start 12/13/16 at 10:00 Potassium Chloride 50 ml @ 50 mls/hr PRN Q6HRS PRN IV For K < 3.7 Last administered on 12/15/16 01:08; Start 12/13/16 at 10:00 Potassium Chloride 50 ml @ 50 mls/hr PRN Q2HR PRN IV total of 40mEq for K < 3.5; Start 12/13/16 at 10:00 Potassium Phosphate 40 mmol/ Sodium Chloride 113.3333 ml @ 52.267 m... PRN 1X PRN IV SEE COMMENTS; Start 12/13/16 at 10:00; Stop 12/13/16 at 23:59; Status DC Sodium Chloride 1,000 ml @ 1,000 mls/hr Q1H PRN IV hypotension; Start 12/13/16 at 14:51; Stop 12/13/16 at 20:50; Status DC Sodium Chloride (Iv Sodium Chloride 0.9% 1000ml Bag) 1,000 ml @ 400 mls/hr Q2H30M PRN IV PATENCY; Start 12/13/16 at 14:51; Stop 12/14/16 at 02:50; Status DC Info (PHARMACY MONITORING -- do not chart) 1 each PRN DAILY PRN MC SEE COMMENTS ; Start 12/13/16 at 15:00; Status UNV Info 1 each 1 each PRN DAILY PRN MC SEE COMMENTS; Start 12/13/16 at 15:00; Stop 12/15/16 at 08:35; Status DC Sodium Phosphate 0.4 mmol/Dextrose 1 ml @ 50 mls/hr BID IV ; Start 12/14/16 at 09:00; Status UNV Albumin Human (Albuminar) 100 ml @ 100 mls/hr TID IV Last administered on 12/15 21:14; Start 12/14/16 at 09:00; Stop 12/15/16 at 21:59; Status DC Darbepoetin Koffi 60 mcg 60 mcg [id number] SQ Last administered on 12/21/16 22:29 ; Start 12/14/16 at 21:00 Sodium Phosphate/ Dextrose 113.3333 ml @ 28.333 m... Q4H IV Last administered on 12/14/16 14:59; Start 12/14/16 at 09:00; Stop 12/14/16 at 16:59; Status DC Info (PHARMACY MONITORING -- do not chart) 1 each PRN DAILY PRN MC SEE COMMENTS ; Start 12/14/16 at 11:00; Status UNV Info 1 each 1 each PRN DAILY PRN MC SEE COMMENTS; Start 12/14/16 at 11:00; Status UNV Albumin Human 200 ml @ 200 mls/hr 1X PRN PRN IV Hypotension; Start 12/14/16 at 13:30; Stop 12/14/16 at 19:00; Status DC Sodium Chloride 1,000 ml @ 1,000 mls/hr Q1H PRN IV hypotension; Start 12/15/16 at 06:32; Stop 12/15/16 at 09:09; Status DC Albumin Human 200 ml @ 200 mls/hr 1X PRN PRN IV Hypotension Last administered on 12/15/16t 07:38; Start 12/15/16 at 06:45; Stop 12/15/16 at 12:44; Status DC Sodium Chloride (Iv Sodium Chloride 0.9% 1000ml Bag) 1,000 ml @ 400 mls/hr Q2H30M PRN IV PATENCY; Start 12/15/16 at 06:32; Stop 12/15/16 at 18:31; Status DC Info 1 each 1 each PRN DAILY PRN MC SEE COMMENTS; Start 12/15/16 at 06:45 Piperacillin Sod/ Tazobactam Sod 2.25 gm/Sodium Chloride 50 ml @ 100 mls/hr Q8HRS IV ; Start 12/15/16 at 14:00; Stop 12/15/16 at 14:00; Status DC Piperacillin Sod/ Tazobactam Sod 2.25 gm/Sodium Chloride 50 ml @ 100 mls/hr Q6HRS IV ; Start 12/15/16 at 12:00; Status Cancel Dexmedetomidine HCl 200 mcg/ Sodium Chloride 50 ml @ 0 mls/hr CONT PRN IV PER PROTOCOL Last administered on 12/17/16t 18:11; Start 12/16/16 at 12:15; Stop at 07:51; Status DC Sodium Chloride (Iv Sodium Chloride 0.9% 500ml Bag) 500 ml @ 500 mls/hr 1X PRN PRN IV SEE COMMENTS; Start 12/16/16 at 12:15 Atropine Sulfate 0.5 mg 0.5 mg PRN Q5MIN PRN IV SEE COMMENTS; Start 12/16/16 at 12:15 Sodium Chloride 1,000 ml @ 1,000 mls/hr Q1H PRN IV hypotension; Start 12/16/16 at 20:04; Stop 12/17/16 at 02:03; Status DC Albumin Human (Albuminar) 200 ml @ 200 mls/hr 1X PRN PRN IV Hypotension Last administered on 12/16/16 20:30; Start 12/16/16 at 20:15; Stop 12/17/16 at 02:14 ; Status DC Sodium Chloride (Normal Saline Flush) 10 ml 1X PRN PRN IV AP catheter pack; Start 12/16/16 at 20:15; Stop 12/17/16 at 20:14; Status DC Sodium Chloride 10 ml 10 ml 1X PRN PRN IV CORPORATE SPECIALIST catheter pack; Start 12/16/16 at 20:15; Stop 12/17/16 at 20:14; Status DC Sodium Chloride (Iv Sodium Chloride 0.9% 1000ml Bag) 1,000 ml @ 400 mls/hr Q2H30M PRN IV PATENCY; Start 12/16/16 at 20:04; Stop 12/17/16 at 08:03; Status DC Info (PHARMACY MONITORING -- do not chart) 1 each PRN DAILY PRN MC SEE COMMENTS ; Start 12/16/16 at 20:15; Status UNV Info (PHARMACY MONITORING -- do not chart) 1 each PRN DAILY PRN MC SEE COMMENTS ; Start 12/16/16 at 20:15; Status UNV Enoxaparin Sodium 40 mg 40 mg Q24H SQ Last administered on 12/18/16 16:19; Start 12/17/16 at 16:00; Stop 12/19/16 at 07:31; Status DC Albumin Human (Albuminar) 100 ml @ 100 mls/hr 1X ONCE IV ; Start 12/17/16 at 20:00; Stop 12/17/16 at 20:59; Status DC Heparin Sodium (Porcine) 5,000 unit Q12HR SQ Last administered on 12/24/16 08: 38; Start 12/19/16 at 09:00 Furosemide 40 mg 40 mg 1X ONCE IVP Last administered on 12/19/16 08:13; Start 12/19/16 at 08:00; Stop 12/19/16 at 08:01; Status DC Potassium Chloride (KCl Premix 20meq) 50 ml @ 25 mls/hr Q2H IV Last administered on 12/19/16 08:16; Start 12/19/16 at 08:30; Stop 12/19/16 at 10:29 ; Status DC Lorazepam (Ativan) 2 mg STK-MED ONCE .ROUTE ; Start 12/19/16 at 10:51; Stop at 10:52; Status DC Lorazepam (Ativan) 4 mg 1X ONCE IV Last administered on 12/19/16 11:15; Start 12/19/16 at 11:15; Stop 12/19/16 at 11:16; Status DC Lorazepam (Ativan) 2 mg PRN Q2HRS PRN IV Seizure Last administered on 16:44; Start 12/19/16 at 11:30 Lorazepam (Ativan) 4 mg PRN Q2HRS PRN IV Seizure; Start 12/19/16 at 11:30 Hydralazine HCl (Apresoline) 10 mg PRN Q4HRS PRN IVP ELEVATED BP, SEE COMMENTS ; Start 12/19/16 at 12:00 Info (PHARMACY MONITORING -- do not chart) 1 each PRN DAILY PRN MC SEE COMMENTS ; Start 12/19/16 at 14:00; Status UNV Info (PHARMACY MONITORING -- do not chart) 1 each PRN DAILY PRN MC SEE COMMENTS ; Start 12/19/16 at 14:00; Status UNV Lorazepam 1 mg 1 mg PRN Q4HRS PRN IV ANXIETY / AGITATION; Start 12/19/16 at 16: 30 Levetiracetam/ Sodium Chloride (Keppra/Iv Sodium Chloride 0.9% 100ml) 105 ml @ 400 mls/hr Q12HR IV Last administered on 12/21/16 09:44; Start 12/19/16 at 17: 00; Stop 12/21/16 at 13:44; Status DC Lorazepam 2 mg 2 mg PRN Q4HRS PRN IV ANXIETY / AGITATION Last administered on 04:59; Start 12/19/16 at 16:30 Amino Acids/ Glycerin/ Electrolytes (Procalamine) 1,000 ml @ 80 mls/hr [id number] IV Last administered on 12/22/16 04:52; Start 12/20/16 at 11:00; Stop at 12:55; Status DC Barium Sulfate (Varibar Honey) 250 ml 1X ONCE PO ; Start 12/20/16 at 14:00; Stop 12/20/16 at 14:07; Status DC Barium Sulfate (Varibar Thin Liquid) 148 gm 1X ONCE PO Last administered on t 15:17; Start 12/20/16 at 15:15; Stop 12/20/16 at 15:16; Status DC Levetiracetam (Keppra) 250 mg BID PO Last administered on 12/24/16 08:26; Start 12/21/16 at 21:00 Sodium Chloride (Normal Saline Flush) 10 ml 1X PRN PRN IV AP catheter pack; Start 12/21/16 at 19:45; Stop 12/22/16 at 19:44; Status DC Sodium Chloride (Normal Saline Flush) 10 ml 1X PRN PRN IV [employer] catheter pack; Start 12/21/16 at 19:45; Stop 12/22/16 at 19:44; Status DC Info (PHARMACY MONITORING -- do not chart) 1 each PRN DAILY PRN MC SEE COMMENTS ; Start 12/21/16 at 19:45; Status UNV Info 1 each 1 each PRN DAILY PRN MC SEE COMMENTS; Start 12/21/16 at 19:45; Status UNV Sodium Chloride 1,000 ml @ 1,000 mls/hr Q1H PRN IV hypotension; Start 12/22/16 at 08:36; Stop 12/22/16 at 14:35; Status DC Albumin Human (Albuminar) 200 ml @ 200 mls/hr 1X PRN PRN IV Hypotension; Start 12/22/16 at 08:45; Stop 12/22/16 at 14:44; Status DC Acetaminophen (Tylenol) 500 mg 1X PRN PRN PO MILD PAIN / TEMP; Start 12/22/16 at 08:45; Stop 12/23/16 at 08:44; Status DC Diphenhydramine HCl (Benadryl) 25 mg 1X PRN PRN IV ITCHING; Start 12/22/16 at 08:45; Stop 12/23/16 at 08:44; Status DC Diphenhydramine HCl (Benadryl) 25 mg 1X PRN PRN IV ITCHING; Start 12/22/16 at 08:45; Stop 12/23/16 at 08:44; Status DC Labetalol HCl (Normodyne) 10 mg PRN Q1HR PRN IVP SBP > 180; Start 12/22/16 at 08:45; Stop 12/23/16 at 08:44; Status DC Clonidine HCl (Catapres) 0.1 mg 1X PRN PRN PO SBP > 180; Start 12/22/16 at 08: 45; Stop 12/23/16 at 08:44; Status DC Info (PHARMACY MONITORING -- do not chart) 1 each PRN DAILY PRN MC SEE COMMENTS ; Start 12/22/16 at 08:45; Status UNV Famotidine (Pepcid) 20 mg Q48H PO Last administered on 12/23/16t 20:47; Start 12/23/16 at 21:00 Active Scripts Active Ultram (Tramadol Hcl) 50 Mg Tablet 50 Mg PO Q6H PRN Robaxin (Methocarbamol) 500 Mg Tablet 500 Mg PO QID Reported Percocet 5-325 Mg Tablet (Oxycodone/Acetaminophen) 1 Each Tablet 1-2 Tab PO Q4HRS Vitals/I & O Vital Sign - Last 24 Hours 12/23/16 12/23/16 12/23/16 12/23/16 19:28 19:39 20:10 23:41 Temp 97.7 97.6 97.7 97.6 Pulse 81 87 Resp 18 18 B/P 102/61 107/57 Pulse Ox 96 98 96 O2 Delivery Nasal Cannula Nasal Cannula Nasal Cannula O2 Flow Rate 4.0 3.0 3.0 12/24/16 12/24/16 12/24/16 12/24/16 03:00 07:18 08:00 08:07 Temp 97.7 97.5 97.7 97.5 Pulse 84 81 Resp 18 18 B/P 101/70 106/67 Pulse Ox 99 100 97 O2 Delivery Nasal Cannula Nasal Cannula Nasal Cannula O2 Flow Rate 3.0 2.0 2.0 12/24/16 12/24/16 12/24/16 12/24/16 08:10 11:15 12:18 14:48 Temp 97.6 97.3 97.6 97.3 Pulse 80 85 Resp 18 18 B/P 116/68 98/69 Pulse Ox 97 96 94 O2 Delivery Nasal Cannula Nasal Cannula Nasal Cannula Nasal Cannula O2 Flow Rate 2.0 3.0 2.0 3.0 12/24/16 16:08 O2 Delivery Nasal Cannula O2 Flow Rate 2.0 Intake and Output 12/23/16 12/23/16 12/24/16 15:00 23:00 07:00 Intake Total 175 ml 75 ml 275 ml Balance 175 ml 75 ml 275 ml SUZIE RUIZ MD Dec 24, 2016 18:13
[2016-12-24] MEDS: MORPHINE SULFATE 2 MG/ML DISP.SYRIN. IV PRN (18:15)
[2016-12-24 19:38] VITALS: BP 107/54
[2016-12-24 23:48] VITALS: BP 96/56
[2016-12-25] VITALS (7 sets, daily range): BP systolic 86–105; BP diastolic 34–72
--- NOTE | 2016-12-25 03:15 | CONS ---
DATE OF CONSULTATION: 12/24/2016 CHIEF COMPLAINT: Gangrene on the toes. HISTORY OF PRESENT ILLNESS: The patient is a 51-year-old male who by chart review, presented to the hospital in distress following a PEA cardiac arrest. He has been in the Intensive Care Unit, found to have acute respiratory failure requiring ventilator support, acute renal failure, sepsis, encephalopathy, and pneumonia. He has been in the hospital for over a week and has improved. He is extubated now on the floor and talking. He states that he has no pain currently in his legs or feet. Vascular Surgery was consulted because of changes in his toes. Prior to this, he was able to ambulate well with no pain in his legs. REVIEW OF SYSTEMS: Otherwise, negative. PAST MEDICAL HISTORY: Includes: 1. Polysubstance abuse. 2. Chronic back pain. 3. Left inguinal hernia repair. ALLERGIES: METOCLOPRAMIDE. MEDICATIONS: Please see his full MAR. PHYSICAL EXAMINATION: GENERAL: The patient is awake and alert, currently in no apparent distress, sitting up comfortably in bed. VITAL SIGNS: He is afebrile. His vital signs are stable. NECK: Supple. UPPER EXTREMITIES: His bilateral upper extremities are warm without edema with palpable radial pulses. His hands are warm with no swelling. There is a little bit of bruising and ulceration on his right medial finger that is very superficial. There are no other areas of skin breakdown. ABDOMEN: Soft, nondistended and nontender. LOWER EXTREMITIES: His bilateral lower extremities are warm without edema. He has palpable bilateral popliteal, dorsalis pedis and posterior tibial artery pulses. His left foot has dry gangrene of the skin in the distal toe. There is no erythema nor drainage. The other toes appear healthy. The right fifth toe also has dry gangrene of the skin in the distal toe with no erythema nor drainage. IMPRESSION: 1. Right fifth toe and left fifth toe dry skin gangrene. 2. Status post pulseless electrical activity cardiac arrest. 3. Acute renal failure. 4. Encephalopathy. 5. Pneumonia. 6. Sepsis. 7. Polysubstance abuse. PLAN: The patient has developed dry gangrene of the skin on his right and left 5th toes. This is in the distal aspect of the toes. There is no associated infection with no erythema nor drainage. This is likely secondary to low perfusion during his cardiac arrest and intensive care treatment of his respiratory failure, sepsis and hypotension. This has likely done damage to the skin on these toes; however, now he has a very good circulation with palpable pulses. Hopefully, these areas will heal. I would give it several weeks before considering amputation of the toes. No surgical intervention is needed at this time. I recommend he keep his feet clean and dry and protect the feet from injuries. [facility] a few weeks to monitor the healing of the skin. STEFANI RUELAS MD DR: GRACIE/noé JOB#: [id number] / [id number]
[2016-12-25] MEDS: TRAMADOL 50 MG TABLET. PO PRN (03:28)
[2016-12-25 05:49] LABS: CALCIUM 9.6 mg/dL (8.5-10.1); CREATININE 7.5 mg/dL (0.7-1.3); GFR 9.4; POTASSIUM 4.8 mmol/L (3.5-5.1)
[2016-12-25] MEDS: ASPIRIN 81 MG TAB.CHEW PO SCH (07:48)
[2016-12-25] MEDS: LEVETIRACETAM 250 MG TABLET. PO SCH ×2 (07:50→21:00)
[2016-12-25] MEDS: IPRATROPIUM BROMIDE 0.5 MG/2.5 ML NEBU. NEB SCH ×4 (08:09→20:16)
[2016-12-25] MEDS: BUDESONIDE 0.5 MG/2 ML NEBU NEB SCH ×2 (08:09→20:00)
[2016-12-25] MEDS: HEPARIN PF for SUB-Q USE 5,000 UNIT/0.5 ML VIAL. SQ SCH ×2 (09:04→23:08)
[2016-12-25] MEDS ORDERED: IV NORMAL SALINE 1000ML BAG 1,000 ML IV PRN ×2 (09:26)
[2016-12-25] MEDS ORDERED: DIPHENHYDRAMINE 50 MG/ML VIAL IV PRN ×2 (09:30)
[2016-12-25] MEDS ORDERED: DIALYSIS PATIENT. MC PRN ×2 (09:30)
[2016-12-25] MEDS: LORAZEPAM 2 MG/ML VIAL IV PRN (11:01)
--- NOTE | 2016-12-25 11:39 | PDOC ---
Dialysis Progress Note Dialysis Note Dialysis Note Seen on Hemodialysis, tolerating treatment Okay Vitals on Hemodialysis: 116/53 90 afeb General Appearance: AAO x 3 Neck: No JVD Min JVP Chest: CTA Joshua Heart: S1 S2 Abdomen - Soft NTND Extremities - + Edema ATN/ ARF: Dialysis as below F 180 NR 3.5 Hrs 3 K 2.5 Ca 140 Na 35 HC03 Qb 350 + Qd 500+ Heparin 0 Units Uf 1-2 Kgs or to dry weight as tolerated May give 25-50 gms of 25% Albumin if needed to maintain Hemodynamic stability Treatment plan reviewed and discussed with motor vehicle assembler Vitals Vital Signs Vital Signs Date Time Temp Pulse Resp B/P Pulse Ox O2 Delivery O2 Flow Rate FiO2 12/25/16 08:09 94 Room Air 12/25/16 07:00 98.0 90 18 105/72 4.0 98.0 Labs Last Labs Laboratory Tests Test 12/24/16 04:40 12/25/16 04:20 Sodium Level 136mmol/L (136-145) 137mmol/L (136-145) Potassium Level 4.8mmol/L (3.5-5.1) 4.8mmol/L (3.5-5.1) Chloride Level 95mmol/L (98-107) 96mmol/L (98-107) Carbon Dioxide Level 27mmol/L (21-32) 27mmol/L (21-32) Anion Gap 14 (6-14) 14 (6-14) Blood Urea Nitrogen 66mg/dL (8-26) 81mg/dL (8-26) Creatinine 6.9mg/dL (0.7-1.3) 7.5mg/dL (0.7-1.3) Estimated GFR (Cockcroft-Gault) 10.3 9.4 Glucose Level 106mg/dL (70-99) 92mg/dL (70-99) Calcium Level 9.7mg/dL (8.5-10.1) 9.6mg/dL (8.5-10.1) Laboratory Tests Test 12/25/16 04:20 Sodium Level 137mmol/L (136-145) Potassium Level 4.8mmol/L (3.5-5.1) Chloride Level 96mmol/L (98-107) Carbon Dioxide Level 27mmol/L (21-32) Anion Gap 14 (6-14) Blood Urea Nitrogen 81mg/dL (8-26) Creatinine 7.5mg/dL (0.7-1.3) Estimated GFR (Cockcroft-Gault) 9.4 Glucose Level 92mg/dL (70-99) Calcium Level 9.6mg/dL (8.5-10.1) Assessment Assessment Problems Medical Problems: (1) ARF (acute renal failure) Status: Acute (2) CAP (community acquired pneumonia) Status: Acute Problems: Plan Plan of Care Problems Medical Problems: (1) ARF (acute renal failure) Status: Acute (2) CAP (community acquired pneumonia) Status: Acute KEVIN BRANDON MD Dec 25, 2016 11:39
--- NOTE | 2016-12-25 17:13 | PDOC ---
PROGRESS NOTES Assessment Assessment Seizure, provoked. Cocaine, Cannabinoids, opiates, benzo positive in system. 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 Metabolic encephalopathy. Respiratory failure. Renal failure on dialysis. Bilateral pulmonary infiltrate. CVA symptoms but no evidence of acute CVA this time. RECOMMENDATIONS/PLAN: Keppra to 250 mg bid and taper it off in 2 weeks. His seizures were not epileptic. Treat medical diseases. Patient education for substances and drugs abstinence. Discussed in detail with his in all detail again in lengthy time at bedside on 12/22/16. Brain MRI 12/19: No acute CVA. EEG on 12/19: No seizure activity except the posterior dominant rhythm is slow for his age. HISTORY OF THE PRESENT ILLNESS: This is a 51-y-old AA male patient who was initailly admitted into the hospital due to medical diseases. He was intubated since but extubated on 12/18. He had several brief seizures or seizure like episodes and over night described as eye open, stiffness with some shaking movements for 20 seconds to 1 minute. He also had speech slurring and speech problems from time to time per nurse. No focalized motor deficits noted. He had episodes of so called aphasia, but he was able to write clearly. He resumed talking after talking to him. No seizure like episodes since 12/19. PAST MEDICAL HISTORY: Please see above. PAST SURGERY HISTORY: No major surgery recently. ALLERGY: Reviewed. MEDICATIONS: Refer to MAR FAMILY HISTORY: Non contributory. SOCIAL HISTORY: Lives with his family. Smoking, drinking, and illicit drug use. Cocaine, Cannabinoids, benzo, opiates positive in system. He uses drugs on regular basis. REVIEW OF SYSTEMS: Constitutional: Malnutrition. Head: No recent traumatic brain or head injury. Skin: No edema, or rash. Ear: No infection, tinnitus. Eyes: No vision loss or color blindness. Nose: No bleeding or purulent discharges. Hearing: No hearing decrease. Neck: No injury.. Cardiac: No PR, arrhythmia Pulmonary: Pneumonia this time. GI: No GI ulcer, GI bleeding. Urinary/genital: Renal failure this time. Endocrinologic: No cousin face, craniofacial dysmorphism, polydactyly Skeletomuscular: Generalized weakness. Neurological: see HP. Psychiatric: Drug use/abuse. Otherwise, not [id number] review of systems. PHYSICAL EXAMINATION: General appearance is in subacute distress. HEENT: Normocephalic and nontraumatic. Eyes, nose, ears, and throat are unremarkable. Neck is supple. No lymphadenopathy. No bruits are heard over the carotid artery. No crepitus. Cardiovascular: S1, S2, regular rate and rhythm. Pulmonary: Decreased to auscultation bilaterally. Abdomen: Bowel sounds are positive. Extremities: No rash, lesions, or edema. No restriction of range of motion NEUROLOGICAL EXAMINATION: Awake. He speaks clearly at exam. Partially oriented to time, and knows place and person. PERRL. EOMI. CN: no focal findings. Muscle tone: within normal. Muscle strength: 5 DTR: 2 Plantar reflex: Flexor response bilaterally Gait: not examined in bed. Sensory exam: no abnormal findings. No obvious cerebellar signs elicited. F-T-N test not examed. Objective Objective Vital Signs Date Time Temp Pulse Resp B/P Pulse Ox O2 Delivery O2 Flow Rate FiO2 12/25/16 15:52 96 Room Air 12/25/16 15:00 98.0 91 18 93/59 98.0 12/25/16 07:00 4.0 Intake and Output 12/25/16 07:00 Intake Total 150 ml Balance 150 ml Intake Oral 0 ml Tube Feeding 150 ml # Voids 3 # Bowel Movements 1 Vitals Signs Vitals VS - Last 72 Hours, by Label Date Time Temp Pulse Resp B/P Pulse Ox O2 Delivery O2 Flow Rate FiO2 12/25/16 15:52 96 Room Air 12/25/16 15:00 98.0 91 18 93/59 95 Room Air 98.0 12/25/16 08:09 94 Room Air 12/25/16 08:00 Room Air 12/25/16 07:00 98.0 90 18 105/72 94 Nasal Cannula 4.0 98.0 12/25/16 03:26 97.5 84 18 104/59 96 Nasal Cannula 4.0 97.5 12/24/16 23:48 97.6 80 18 96/56 96 Room Air 97.6 12/24/16 20:05 Room Air 12/24/16 19:38 98.1 79 18 107/54 96 Room Air 98.1 12/24/16 19:37 96 Nasal Cannula 2.0 12/24/16 18:45 18 94 Nasal Cannula 2.0 12/24/16 18:15 16 94 Nasal Cannula 2.0 12/24/16 16:08 Nasal Cannula 2.0 12/24/16 14:48 97.3 85 18 98/69 94 Nasal Cannula 3.0 97.3 12/24/16 12:18 Nasal Cannula 2.0 12/24/16 11:15 97.6 80 18 116/68 96 Nasal Cannula 3.0 97.6 12/24/16 08:10 97 Nasal Cannula 2.0 12/24/16 08:07 97 Nasal Cannula 2.0 12/24/16 08:00 Nasal Cannula 2.0 12/24/16 07:18 97.5 81 18 106/67 100 Nasal Cannula 3.0 97.5 Laboratory Laboratory Laboratory Tests Test 12/25/16 04:20 Sodium Level 137mmol/L (136-145) Potassium Level 4.8mmol/L (3.5-5.1) Chloride Level 96mmol/L (98-107) Carbon Dioxide Level 27mmol/L (21-32) Anion Gap 14 (6-14) Blood Urea Nitrogen 81mg/dL (8-26) Creatinine 7.5mg/dL (0.7-1.3) Estimated GFR (Cockcroft-Gault) 9.4 Glucose Level 92mg/dL (70-99) Calcium Level 9.6mg/dL (8.5-10.1) Microbiology 12/07/16 Blood Culture - Final, Complete NO GROWTH AFTER 5 DAYS 12/07/16 Stool Culture - Final, Complete 12/07/16 Stool Culture Result 1 (NEFTALI) - Final, Complete 12/07/16 Campylobacter Antigen Assay - Final, Complete 12/07/16 Campylobactor Result 1 - Final, Complete 12/07/16 Shiga Toxin Test - Final, Complete 12/12/16 AFB Specimen Processing Tissue - Final, Resulted 12/12/16 Acid Fast Bacilli Culture, Resulted Pending 12/12/16 Gram Stain - Final, Resulted 12/12/16 Fungal Culture - Preliminary, Resulted 12/12/16 Fungal Culture Result 1 - Preliminary, Resulted 12/12/16 Urine Culture - Final, Complete 12/12/16 Urine Culture Result 1 (NEFTALI) - Final, Complete Medication Medications Current Medications Diphenhydramine HCl (Benadryl) 25 mg 1X PRN PRN IV ITCHING; Start 12/25/16 at 09:30; Stop 12/26/16 at 09:29 Diphenhydramine HCl 25 mg 25 mg 1X PRN PRN IV ITCHING; Start 12/25/16 at 09:30 ; Stop 12/26/16 at 09:29 Info (PHARMACY MONITORING -- do not chart) 1 each PRN DAILY PRN MC SEE COMMENTS ; Start 12/25/16 at 09:30; Status UNV Info (PHARMACY MONITORING -- do not chart) 1 each PRN DAILY PRN MC SEE COMMENTS ; Start 12/25/16 at 09:30; Status UNV Sodium Chloride (Iv Sodium Chloride 0.9% 1000ml Bag) 1,000 ml @ 400 mls/hr Q2H30M PRN IV PATENCY; Start 12/25/16 at 09:26; Stop 12/25/16 at 21:25 Sodium Chloride (Iv Sodium Chloride 0.9% 1000ml Bag) 1,000 ml @ 1,000 mls/hr Q1H PRN IV hypotension; Start 12/25/16 at 09:26; Stop 12/25/16 at 15:25; Status DC Comment Review of Relevant I have reviewed the following items immanuel (where applicable) has been applied. COLLETTE MOYER MD Dec 25, 2016 17:13
--- NOTE | 2016-12-25 17:28 | PDOC ---
PROGRESS NOTES Chief Complaint Chief Complaint Encephalopathy, delirium, dysphagia ASSESSMENT AND PLAN: 1. Dysphagia: failed video swallow 12/20. on NGT. reeval per speech path 2. Seizure: appreciate neuro input. provoked, with mult drug abuse. low dose kepra [id number], then wean off 3. Cardiac arrest PEA (12/08); TTE EF of 30-35%. on ASA. clinically asymptomaticc 4. Acute respiratory failure, likely multifactorial; s/p mechanical ventilation (12/08), resolving. 5. ASHLEY: on HD as per Dr Jones 6. 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 prob acute injuries at time of cardiac arrest. monitor, F/U in Wound clinic 7. Cachexia: d/w pt and , that this did not happen in hospital, even if he is not eating currently - is getting NGT feeds. needs to start living healthier when he gets out! 8. Prophylaxis: Heparin, H2B Vitals Vitals Vital Signs Date Time Temp Pulse Resp B/P Pulse Ox O2 Delivery O2 Flow Rate FiO2 12/25/16 15:52 96 Room Air 12/25/16 15:00 98.0 91 18 93/59 98.0 12/25/16 07:00 4.0 Physical Exam Physical Exam General: Alert, Cooperative, No acute distress Heart: Regular rate, No murmurs, Other Lungs: Clear Abdomen: Normal bowel sounds, Soft Extremities: No clubbing Skin: Other (dry gangrene toes B) Labs LABS Laboratory Tests Test 12/25/16 04:20 Sodium Level 137mmol/L (136-145) Potassium Level 4.8mmol/L (3.5-5.1) Chloride Level 96mmol/L (98-107) Carbon Dioxide Level 27mmol/L (21-32) Anion Gap 14 (6-14) Blood Urea Nitrogen 81mg/dL (8-26) Creatinine 7.5mg/dL (0.7-1.3) Estimated GFR (Cockcroft-Gault) 9.4 Glucose Level 92mg/dL (70-99) Calcium Level 9.6mg/dL (8.5-10.1) Review of Systems Review of Systems wants to eat and drink. no other c/o ALETA JAMIL MD Dec 25, 2016 17:28
[2016-12-25] MEDS: FAMOTIDINE 20 MG TABLET. PO SCH (21:00)
[2016-12-25 22:28] LABS: CKMB INDEX 0.2 % (0-4); CKMB MASS 0.6 ng/mL (0.0-3.6)
[2016-12-26 03:26] VITALS: BP 91/53
[2016-12-26 03:37] LABS: BASO # 0.2 x10^3/uL (0.0-0.2); BASO % 2 % (0-3); EOS % 1 % (0-3); HEMATOCRIT 29.1 % (39.0-53.0); HEMOGLOBIN 9.6 g/dL (13.0-17.5); LYMPH # 2.6 x10^3/uL (1.0-4.8); LYMPH % 19 % (24-48); MEAN CORPUSCULAR HEMOGLOBIN 30 pg (25-35); MEAN CORPUSCULAR HGB CONC 33 g/dL (31-37); MEAN CORPUSCULAR VOLUME 90 fL (79-100); MONO % 16 % (0-9); NEUT % 64 % (31-73); PLATELET COUNT 570 x10^3/uL (140-400); RED BLOOD COUNT 3.22 x10^6/uL (4.30-5.70); RED CELL DISTRIBUTION WIDTH 14.6 % (11.5-14.5); WHITE BLOOD COUNT 13.9 x10^3/uL (4.0-11.0)
[2016-12-26 04:06] LABS: ALBUMIN 3.6 g/dL (3.4-5.0); ALBUMIN/GLOBULIN RATIO 0.6 (1.0-1.7); CALCIUM 9.7 mg/dL (8.5-10.1); CREATININE 5.4 mg/dL (0.7-1.3); GFR 13.7; POTASSIUM 5.1 mmol/L (3.5-5.1); TOTAL BILIRUBIN 0.4 mg/dL (0.2-1.0); TOTAL PROTEIN 9.6 g/dL (6.4-8.2)
[2016-12-26 05:53] LABS: % BASOS 1 % (0-3); % EOS 1 % (0-5); PLT ESTIMATE INCREASED (ADEQUATE)
[2016-12-26 05:54] LABS: ANISOCYTOSIS SLIGHT
[2016-12-26 05:56] LABS: POIKILOCYTOSIS PRESENT; TARGET CELLS PRESENT
--- NOTE | 2016-12-26 06:53 | EKG ---
[facility] [address] [place] [address] Test Date: 2016-12-25 Test Time: 21:09:23 Pat Name: MARLEN CRUZ Department: Room: 3 Gender: M Hat Mender: SUSAN : 1965 Requested By: DEMETRIUS MALDONADO Order Number: [id number] Reading MD: Tariq Sheriff Measurements Intervals [place] Rate: 88 P: 70 RI: 132 QRS: 79 QRSD: 76 T: -134 QT: 372 QTc: 454 Interpretive Statements SINUS RHYTHM LVH WITH REPOLARIZATION ABNORMALITY ABNORMAL ECG TWI POSSIBLY SUGGESTIVE OF NEUROLOGIC DISEASE Electronically Signed On 12-26-2016 7:46:54 EMPLOYMENT INTERVIEWER by Tariq Sheriff
[2016-12-26] MEDS: BUDESONIDE 0.5 MG/2 ML NEBU NEB SCH ×2 (07:43→20:27)
[2016-12-26] MEDS: IPRATROPIUM BROMIDE 0.5 MG/2.5 ML NEBU. NEB SCH ×4 (07:43→20:27)
[2016-12-26 07:50] VITALS: BP 100/51
[2016-12-26] MEDS: LEVETIRACETAM 250 MG TABLET. PO SCH ×2 (09:15→21:34)
[2016-12-26] MEDS: ASPIRIN 81 MG TAB.CHEW PO SCH (09:15)
--- NOTE | 2016-12-26 09:16 | PDOC ---
PROGRESS NOTES Chief Complaint Chief Complaint Encephalopathy, delirium, dysphagia ASSESSMENT AND PLAN: 1. Dysphagia: failed video swallow 12/20. on NGT. reeval per speech path 2. Seizure: appreciate neuro input. provoked, with mult drug abuse. low dose keppra [id number], then wean off 3. Cardiac arrest PEA (12/08); TTE EF of 30-35%. on ASA. clinically asymptomatic 4. Acute respiratory failure, likely multifactorial; s/p mechanical ventilation (12/08), resolving. 5. ASHLEY: on HD as per Dr Jones 6. 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 prob acute injuries at time of cardiac arrest. monitor, F/U in Wound clinic 7. Cachexia: d/w pt and , that this did not happen in hospital, even if he is not eating currently - is getting NGT feeds. needs to start living healthier when he gets out! 8. Prophylaxis: Heparin, H2B 9. Dispo: awaiting swallow eval. if again fail, consider PEG placement Vitals Vitals Vital Signs Date Time Temp Pulse Resp B/P Pulse Ox O2 Delivery O2 Flow Rate FiO2 12/26/16 07:50 97.9 79 16 100/51 98 Room Air 97.9 12/25/16 07:00 4.0 Physical Exam Physical Exam General: Alert, Cooperative, No acute distress Heart: Regular rate, No murmurs, Other Lungs: Clear Abdomen: Normal bowel sounds, Soft Extremities: No clubbing Skin: Other (dry gangrene toes B) Labs LABS Laboratory Tests Test 12/25/16 21:25 12/26/16 02:55 Creatine Kinase 368U/L (39-308) Creatine Kinase MB (Mass) 0.6ng/mL (0.0-3.6) Creatine Kinase MB Relative Index 0.2% (0-4) Troponin I Quantitative < 0.017ng/mL (0.000-0.055) White Blood Count 13.9x10^3/uL (4.0-11.0) Red Blood Count 3.22x10^6/uL (4.30-5.70) Hemoglobin 9.6g/dL (13.0-17.5) Hematocrit 29.1% (39.0-53.0) Mean Corpuscular Volume 90fL (79-100) Mean Corpuscular Hemoglobin 30pg (25-35) Mean Corpuscular Hemoglobin Concent 33g/dL (31-37) Red Cell Distribution Width 14.6% (11.5-14.5) Platelet Count 570x10^3/uL (140-400) Neutrophils (%) (Auto) 64% (31-73) Lymphocytes (%) (Auto) 19% (24-48) Monocytes (%) (Auto) 16% (0-9) Eosinophils (%) (Auto) 1% (0-3) Basophils (%) (Auto) 2% (0-3) Neutrophils # (Auto) 8.8x10^3uL (1.8-7.7) Lymphocytes # (Auto) 2.6x10^3/uL (1.0-4.8) Monocytes # (Auto) 2.2x10^3/uL (0.0-1.1) Eosinophils # (Auto) 0.1x10^3/uL (0.0-0.7) Basophils # (Auto) 0.2x10^3/uL (0.0-0.2) Segmented Neutrophils % 61% (35-66) Lymphocytes % 24% (24-48) Monocytes % 13% (0-10) Eosinophils % 1% (0-5) Basophils % 1% (0-3) Platelet Estimate Increased (ADEQUATE) Large Platelets Present Poikilocytosis Present Anisocytosis Slight Target Cells Present Sodium Level 135mmol/L (136-145) Potassium Level 5.1mmol/L (3.5-5.1) Chloride Level 95mmol/L (98-107) Carbon Dioxide Level 28mmol/L (21-32) Anion Gap 12 (6-14) Blood Urea Nitrogen 47mg/dL (8-26) Creatinine 5.4mg/dL (0.7-1.3) Estimated GFR (Cockcroft-Gault) 13.7 BUN/Creatinine Ratio 9 (6-20) Glucose Level 100mg/dL (70-99) Calcium Level 9.7mg/dL (8.5-10.1) Magnesium Level 2.0mg/dL (1.8-2.4) Total Bilirubin 0.4mg/dL (0.2-1.0) Aspartate Amino Transf (AST/SGOT) 29U/L (15-37) Alanine Aminotransferase (ALT/SGPT) 29U/L (16-63) Alkaline Phosphatase 85U/L (46-116) Total Protein 9.6g/dL (6.4-8.2) Albumin 3.6g/dL (3.4-5.0) Albumin/Globulin Ratio 0.6 (1.0-1.7) Review of Systems Review of Systems feels ok. "i'm so hungry!" ALETA JAMIL MD Dec 26, 2016 09:16
[2016-12-26] MEDS: HEPARIN PF for SUB-Q USE 5,000 UNIT/0.5 ML VIAL. SQ SCH ×2 (09:22→21:37)
--- NOTE | 2016-12-26 09:51 | PDOC ---
NIMA MARCANO CAN DOFFER 12/26/16 0951: CARDIO Progress Notes Date and Time Date of Service 12/26/2016 Time of Evaluation 1015 Subjective Subjective: No Chest Pain, No shortness of breath, No Palpitations, Other ( walking around in unit without SOA, and tolerating increased activity) Vitals Vitals Vital Signs Date Time Temp Pulse Resp B/P Pulse Ox O2 Delivery O2 Flow Rate FiO2 12/26/16 07:50 97.9 79 16 100/51 98 Room Air 97.9 12/25/16 07:00 4.0 Weight Weight [ ] Input and Output Intake and Output Intake and Output 12/26/16 07:00 Intake Total 755 ml Balance 755 ml Intake Oral 0 ml Tube Feeding 755 ml # Voids 3 Laboratory Labs Laboratory Tests Test 12/25/16 21:25 12/26/16 02:55 Creatine Kinase 368U/L (39-308) Creatine Kinase MB (Mass) 0.6ng/mL (0.0-3.6) Creatine Kinase MB Relative Index 0.2% (0-4) Troponin I Quantitative < 0.017ng/mL (0.000-0.055) White Blood Count 13.9x10^3/uL (4.0-11.0) Red Blood Count 3.22x10^6/uL (4.30-5.70) Hemoglobin 9.6g/dL (13.0-17.5) Hematocrit 29.1% (39.0-53.0) Mean Corpuscular Volume 90fL (79-100) Mean Corpuscular Hemoglobin 30pg (25-35) Mean Corpuscular Hemoglobin Concent 33g/dL (31-37) Red Cell Distribution Width 14.6% (11.5-14.5) Platelet Count 570x10^3/uL (140-400) Neutrophils (%) (Auto) 64% (31-73) Lymphocytes (%) (Auto) 19% (24-48) Monocytes (%) (Auto) 16% (0-9) Eosinophils (%) (Auto) 1% (0-3) Basophils (%) (Auto) 2% (0-3) Neutrophils # (Auto) 8.8x10^3uL (1.8-7.7) Lymphocytes # (Auto) 2.6x10^3/uL (1.0-4.8) Monocytes # (Auto) 2.2x10^3/uL (0.0-1.1) Eosinophils # (Auto) 0.1x10^3/uL (0.0-0.7) Basophils # (Auto) 0.2x10^3/uL (0.0-0.2) Segmented Neutrophils % 61% (35-66) Lymphocytes % 24% (24-48) Monocytes % 13% (0-10) Eosinophils % 1% (0-5) Basophils % 1% (0-3) Platelet Estimate Increased (ADEQUATE) Large Platelets Present Poikilocytosis Present Anisocytosis Slight Target Cells Present Sodium Level 135mmol/L (136-145) Potassium Level 5.1mmol/L (3.5-5.1) Chloride Level 95mmol/L (98-107) Carbon Dioxide Level 28mmol/L (21-32) Anion Gap 12 (6-14) Blood Urea Nitrogen 47mg/dL (8-26) Creatinine 5.4mg/dL (0.7-1.3) Estimated GFR (Cockcroft-Gault) 13.7 BUN/Creatinine Ratio 9 (6-20) Glucose Level 100mg/dL (70-99) Calcium Level 9.7mg/dL (8.5-10.1) Magnesium Level 2.0mg/dL (1.8-2.4) Total Bilirubin 0.4mg/dL (0.2-1.0) Aspartate Amino Transf (AST/SGOT) 29U/L (15-37) Alanine Aminotransferase (ALT/SGPT) 29U/L (16-63) Alkaline Phosphatase 85U/L (46-116) Total Protein 9.6g/dL (6.4-8.2) Albumin 3.6g/dL (3.4-5.0) Albumin/Globulin Ratio 0.6 (1.0-1.7) Microbiology Micro Microbiology 12/07/16 Blood Culture - Final, Complete NO GROWTH AFTER 5 DAYS 12/07/16 Stool Culture - Final, Complete 12/07/16 Stool Culture Result 1 (NEFTALI) - Final, Complete 12/07/16 Campylobacter Antigen Assay - Final, Complete 12/07/16 Campylobactor Result 1 - Final, Complete 12/07/16 Shiga Toxin Test - Final, Complete 12/12/16 AFB Specimen Processing Tissue - Final, Resulted 12/12/16 Acid Fast Bacilli Culture, Resulted Pending 12/12/16 Gram Stain - Final, Resulted 12/12/16 Fungal Culture - Preliminary, Resulted 12/12/16 Fungal Culture Result 1 - Preliminary, Resulted 12/12/16 Urine Culture - Final, Complete 12/12/16 Urine Culture Result 1 (NEFTALI) - Final, Complete Review of Systems Constitutional: yes: alert, oriented, weakness Ears/Nose/Throat: Yes: no symptom reported Eyes: Yes: no symptom reported Pulmonary: Yes no symptom reported Cardiovascular: Yes no symptom reported Gastrointestional: Yes: no symptom reported Genitourinary: Yes: no symptom reported Musculoskeletal: Yes: muscle atrophy, muscle stiffness Physical Exam HEENT: Neck Supple W Full Motion Chest: Symmetric LUNGS: Clear to Auscultation Heart: S1S2, RRR (No significant ectopies overnight), other (tele: SR) Abdomen: Soft N/T Extremities: 2+ Dorsalis Pedis, No Edema, No Calf Tenderness Neurology: alert, oriented, follow commands Assessment Assessment 1. Acute respiratory failure: extubated 12/17. remains NPO due to dysphagia 2. Acute systolic heart failure: compensated 3. S/p PEA arrest likely associated with recreational drug use and seizures. 4. Non-ischemic cardiomyopathy; Recent LHC with no coronary disease. LVEF 30-35 % 5. Abnormal EKG: Noted with diffuse symmetrical T wave inversions, cardiac enzymes not compatible ACS, suspect from current neurological disease. CP likely from GI 6. Seizures 7. Polysubstance abuse: Cocaine, Cannabinoids, opiates, benzodiazepine 8. ASHLEY/ATN: on HD 9. Dyslipidemia: LDL 22, HDL 29, TG 315 Recommendations Fluid off loading per HD GI prophylaxis per PCP NO PO meds due to NPO currently with failed swallow study, Dobbhoff in place BP at low end, unable to place on BB currently otherwise HR stable. No dizziness with positional changes Maintain lytes with K and Mg close to 4.0 and 2.0 respectively. Continue supportive care and optimization as tolerated. Start on fish oil once po allowed. TTE to repeat in 3 months Will need serious lifestyle modifications and will need close follow up with cardiology as outpt. Discussed this with pt. Will be difficult to follow through as an outpt with lack of financial means. Social service consult. FARIDA WRIGHT MD 12/26/16 1720: CARDIO Progress Notes Plan Plan Patient seen and examined. Agree with above nurse practitioner note. No acute events overnight. Unfortunately he's not been able to tolerate oral medications and therefore it has been difficult initiating him on an oral regimen for his heart failure. Furthermore, he's had low blood pressures therefore making it difficult to initiate choco inhibitors or afterload reducing agents as well as beta-blockade. Continue supportive care from a cardiovascular perspective with fluid offloading per hemodialysis. We will follow up with him on outpatient basis to consider initiation of medical therapy NIMA MARCANO APRN Dec 26, 2016 09:51 FARIDA WRIGHT MD Dec 26, 2016 17:20
[2016-12-26] MEDS ORDERED: BARIUM SULFATE 40% 148 GM PWD PO ONE (11:15)
[2016-12-26 11:37] VITALS: BP 123/63
--- NOTE | 2016-12-26 11:37 | RAD ---
Video dysphasia study, 12/26/2016: History: Aspiration The swallowing mechanism was examined fluoroscopically in the lateral projection while the patient ingested a variety of food materials mixed with barium. 3.0 minutes of fluoroscopy time was utilized. One fluoroscopic video loop was recorded by a member of the speech Department. When ingesting the thin liquids there was laryngeal penetration which was occasionally deep. No neno aspiration was observed. When ingesting the honey thickened 0, the laryngeal penetration abated. The majority of the barium bolus passed normally through the cervical esophagus. The patient ingested the pudding consistency material and the barium coated solids without difficulty. There was only mild vallecular and piriform sinus residue with the thicker materials. IMPRESSION: Intermittent deep laryngeal penetration of the thin liquids which abated when the thicker materials were utilized.
[2016-12-26] MEDS ORDERED: MAGNESIUM SULFATE 2GM 50 ML IV PRN (14:00)
[2016-12-26 15:10] VITALS: BP 126/71
--- NOTE | 2016-12-26 16:40 | PDOC ---
PROGRESS NOTES Assessment Assessment Seizure, provoked. Cocaine, Cannabinoids, opiates, benzo positive in system. 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 Metabolic encephalopathy. Respiratory failure. Renal failure on dialysis. Bilateral pulmonary infiltrate. CVA symptoms but no evidence of acute CVA this time. RECOMMENDATIONS/PLAN: Keppra to 250 mg bid and taper it off in 2 weeks. His seizures were not epileptic. Treat medical diseases. Patient education for substances and drugs abstinence. Discussed in detail with his in all detail again in lengthy time at bedside on 12/22/16. Brain MRI 12/19: No acute CVA. EEG on 12/19: No seizure activity except the posterior dominant rhythm is slow for his age. HISTORY OF THE PRESENT ILLNESS: This is a 51-y-old AA male patient who was initailly admitted into the hospital due to medical diseases. He was intubated since but extubated on 12/18. He had several brief seizures or seizure like episodes and over night described as eye open, stiffness with some shaking movements for 20 seconds to 1 minute. He also had speech slurring and speech problems from time to time per nurse. No focalized motor deficits noted. He had episodes of so called aphasia, but he was able to write clearly. He resumed talking after talking to him. No seizure like episodes since 12/19. PAST MEDICAL HISTORY: Please see above. PAST SURGERY HISTORY: No major surgery recently. ALLERGY: Reviewed. MEDICATIONS: Refer to [facility] FAMILY HISTORY: Non contributory. SOCIAL HISTORY: Lives with his family. Smoking, drinking, and illicit drug use. Cocaine, Cannabinoids, benzo, opiates positive in system. He uses drugs on regular basis. REVIEW OF SYSTEMS: Constitutional: Malnutrition. Head: No recent traumatic brain or head injury. Skin: No edema, or rash. Ear: No infection, tinnitus. Eyes: No vision loss or color blindness. Nose: No bleeding or purulent discharges. Hearing: No hearing decrease. Neck: No injury.. Cardiac: No OR, arrhythmia Pulmonary: Pneumonia this time. GI: No GI ulcer, GI bleeding. Urinary/genital: Renal failure this time. Endocrinologic: No cousin face, craniofacial dysmorphism, polydactyly Skeletomuscular: Generalized weakness. Neurological: see HP. Psychiatric: Drug use/abuse. Otherwise, not [id number] review of systems. PHYSICAL EXAMINATION: General appearance is in subacute distress. HEENT: Normocephalic and nontraumatic. Eyes, nose, ears, and throat are unremarkable. Neck is supple. No lymphadenopathy. No bruits are heard over the carotid artery. No crepitus. Cardiovascular: S1, S2, regular rate and rhythm. Pulmonary: Decreased to auscultation bilaterally. Abdomen: Bowel sounds are positive. Extremities: No rash, lesions, or edema. No restriction of range of motion NEUROLOGICAL EXAMINATION: Awake. He speaks clearly at exam. Partially oriented to time, and knows place and person. PERRL. EOMI. CN: no focal findings. Muscle tone: within normal. Muscle strength: 5 DTR: 2 Plantar reflex: Flexor response bilaterally Gait: not examined in bed. Sensory exam: no abnormal findings. No obvious cerebellar signs elicited. F-T-N test not very accurate. Objective Objective Vital Signs Date Time Temp Pulse Resp B/P Pulse Ox O2 Delivery O2 Flow Rate FiO2 12/26/16 15:59 97 Room Air 12/26/16 15:10 97.9 83 16 126/71 97.9 12/25/16 07:00 4.0 Intake and Output 12/26/16 07:00 Intake Total 755 ml Balance 755 ml Intake Oral 0 ml Tube Feeding 755 ml # Voids 3 Vitals Signs Vitals VS - Last 72 Hours, by Label Date Time Temp Pulse Resp B/P Pulse Ox O2 Delivery O2 Flow Rate FiO2 12/26/16 15:59 97 Room Air 12/26/16 15:10 97.9 83 16 126/71 100 Room Air 97.9 12/26/16 11:56 95 Room Air 12/26/16 11:37 97.5 68 16 123/63 94 Room Air 97.5 12/26/16 08:00 Room Air 12/26/16 07:50 97.9 79 16 100/51 98 Room Air 97.9 12/26/16 07:40 97 Room Air 12/26/16 03:26 97.9 77 16 91/53 96 Room Air 97.9 12/25/16 23:55 98.1 85 16 86/50 96 Room Air 98.1 12/25/16 21:25 90 16 92/34 94 Room Air 12/25/16 21:05 96 16 99/55 95 Room Air 12/25/16 20:21 96 Room Air 12/25/16 20:19 96 Room Air 12/25/16 20:00 Room Air 12/25/16 19:43 97.5 96 16 88/61 95 Room Air 97.5 12/25/16 15:52 96 Room Air 12/25/16 15:00 98.0 91 18 93/59 95 Room Air 98.0 12/25/16 08:09 94 Room Air 12/25/16 08:00 Room Air 12/25/16 07:00 98.0 90 18 105/72 94 Nasal Cannula 4.0 98.0 Laboratory Laboratory Laboratory Tests Test 12/25/16 21:25 12/26/16 02:55 Creatine Kinase 368U/L (39-308) Creatine Kinase MB (Mass) 0.6ng/mL (0.0-3.6) Creatine Kinase MB Relative Index 0.2% (0-4) Troponin I Quantitative < 0.017ng/mL (0.000-0.055) White Blood Count 13.9x10^3/uL (4.0-11.0) Red Blood Count 3.22x10^6/uL (4.30-5.70) Hemoglobin 9.6g/dL (13.0-17.5) Hematocrit 29.1% (39.0-53.0) Mean Corpuscular Volume 90fL (79-100) Mean Corpuscular Hemoglobin 30pg (25-35) Mean Corpuscular Hemoglobin Concent 33g/dL (31-37) Red Cell Distribution Width 14.6% (11.5-14.5) Platelet Count 570x10^3/uL (140-400) Neutrophils (%) (Auto) 64% (31-73) Lymphocytes (%) (Auto) 19% (24-48) Monocytes (%) (Auto) 16% (0-9) Eosinophils (%) (Auto) 1% (0-3) Basophils (%) (Auto) 2% (0-3) Neutrophils # (Auto) 8.8x10^3uL (1.8-7.7) Lymphocytes # (Auto) 2.6x10^3/uL (1.0-4.8) Monocytes # (Auto) 2.2x10^3/uL (0.0-1.1) Eosinophils # (Auto) 0.1x10^3/uL (0.0-0.7) Basophils # (Auto) 0.2x10^3/uL (0.0-0.2) Segmented Neutrophils % 61% (35-66) Lymphocytes % 24% (24-48) Monocytes % 13% (0-10) Eosinophils % 1% (0-5) Basophils % 1% (0-3) Platelet Estimate Increased (ADEQUATE) Large Platelets Present Poikilocytosis Present Anisocytosis Slight Target Cells Present Sodium Level 135mmol/L (136-145) Potassium Level 5.1mmol/L (3.5-5.1) Chloride Level 95mmol/L (98-107) Carbon Dioxide Level 28mmol/L (21-32) Anion Gap 12 (6-14) Blood Urea Nitrogen 47mg/dL (8-26) Creatinine 5.4mg/dL (0.7-1.3) Estimated GFR (Cockcroft-Gault) 13.7 BUN/Creatinine Ratio 9 (6-20) Glucose Level 100mg/dL (70-99) Calcium Level 9.7mg/dL (8.5-10.1) Magnesium Level 2.0mg/dL (1.8-2.4) Total Bilirubin 0.4mg/dL (0.2-1.0) Aspartate Amino Transf (AST/SGOT) 29U/L (15-37) Alanine Aminotransferase (ALT/SGPT) 29U/L (16-63) Alkaline Phosphatase 85U/L (46-116) Total Protein 9.6g/dL (6.4-8.2) Albumin 3.6g/dL (3.4-5.0) Albumin/Globulin Ratio 0.6 (1.0-1.7) Microbiology 12/07/16 Blood Culture - Final, Complete NO GROWTH AFTER 5 DAYS 12/07/16 Stool Culture - Final, Complete 12/07/16 Stool Culture Result 1 (NEFTALI) - Final, Complete 12/07/16 Campylobacter Antigen Assay - Final, Complete 12/07/16 Campylobactor Result 1 - Final, Complete 12/07/16 Shiga Toxin Test - Final, Complete 12/12/16 AFB Specimen Processing Tissue - Final, Resulted 12/12/16 Acid Fast Bacilli Culture, Resulted Pending 12/12/16 Gram Stain - Final, Resulted 12/12/16 Fungal Culture - Preliminary, Resulted 12/12/16 Fungal Culture Result 1 - Preliminary, Resulted 12/12/16 Urine Culture - Final, Complete 12/12/16 Urine Culture Result 1 (NEFTALI) - Final, Complete Medication Medications Current Medications Barium Sulfate 148 gm 148 gm 1X ONCE PO Last administered on 12/26/16t 11:27; Start 12/26/16 at 11:15; Stop 12/26/16 at 11:16; Status DC Magnesium Sulfate/ Dextrose (Magnesium Sulfate PREMIX 2GM) 50 ml @ 25 mls/hr PRN DAILY PRN IV for Mag < 1.7 on am labs; Start 12/26/16 at 14:00 Comment Review of Relevant I have reviewed the following items immanuel (where applicable) has been applied. COLLETTE MOYER MD Dec 26, 2016 16:40
[2016-12-26 19:42] VITALS: BP 105/75
[2016-12-26 23:03] LABS: BILIRUBIN,URINE NEGATIVE (NEG); GLUCOSE,URINE NEGATIVE (NEG); NITRITE,URINE NEGATIVE (NEG); PH,URINE 5.5; PROTEIN,URINE 100 mg/dL (NEG-TRACE); UROBILINOGEN,URINE 0.2 mg/dL (0.2 mg/dL)
[2016-12-26 23:16] VITALS: BP 111/77
[2016-12-26 23:16] LABS: BACTERIA,URINE 0 /HPF (0-FEW); SQUAMOUS EPITHELIAL CELL,UR OCC /LPF
[2016-12-27 03:21] VITALS: BP 124/76
[2016-12-27 05:07] LABS: ALBUMIN 3.3 g/dL (3.4-5.0); CALCIUM 9.4 mg/dL (8.5-10.1); CREATININE 6.3 mg/dL (0.7-1.3); GFR 11.5; PHOSPHORUS 5.9 mg/dL (2.6-4.7); POTASSIUM 5.2 mmol/L (3.5-5.1)
[2016-12-27] MEDS: ACETAMINOPHEN 500 MG TABLET PO PRN ×2 (06:12→13:14)
[2016-12-27] MEDS: LEVETIRACETAM 250 MG TABLET. PO SCH ×2 (07:20→21:10)
[2016-12-27] MEDS: ASPIRIN 81 MG TAB.CHEW PO SCH (07:20)
[2016-12-27] MEDS: LORAZEPAM 2 MG/ML VIAL IV PRN (07:21)
[2016-12-27] MEDS: HEPARIN PF for SUB-Q USE 5,000 UNIT/0.5 ML VIAL. SQ SCH (07:29)
[2016-12-27] MEDS: BUDESONIDE 0.5 MG/2 ML NEBU NEB SCH ×2 (07:46→20:31)
[2016-12-27] MEDS: IPRATROPIUM BROMIDE 0.5 MG/2.5 ML NEBU. NEB SCH ×4 (07:46→20:31)
[2016-12-27] MEDS ORDERED: IV NORMAL SALINE 1000ML BAG 1,000 ML IV PRN ×2 (09:12)
[2016-12-27] MEDS ORDERED: 0.9 % SODIUM CHLORIDE 10 ML DISP.SYRIN. IV PRN ×2 (09:15)
[2016-12-27] MEDS ORDERED: DIALYSIS PATIENT. MC PRN ×2 (09:15)
[2016-12-27] MEDS ORDERED: ALBUMIN HUMAN 25% 200 ML IV PRN (09:15)
--- NOTE | 2016-12-27 10:23 | PDOC ---
Dialysis Progress Note Dialysis Note Dialysis Note Seen on Hemodialysis, tolerating treatment Okay Vitals on Hemodialysis: 95/60 91 afeb General Appearance: AAO x 2 Neck: No JVD Min JVP Chest: CTA Joshua Heart: S1 S2 Abdomen - Soft NTND Extremities - no Edema ATN/ ARF: Dialysis as below F 180 NR 3.5 Hrs 2 K 2.5 Ca 140 Na 35 HC03 Qb 350 + Qd 500+ Heparin 0 Units Uf 1 Kgs or to dry weight as tolerated May give 25-50 gms of 25% Albumin if needed to maintain Hemodynamic stability Treatment plan reviewed and discussed with consultant Vitals Vital Signs Vital Signs Date Time Temp Pulse Resp B/P Pulse Ox O2 Delivery O2 Flow Rate FiO2 12/27/16 08:00 Room Air 12/27/16 07:47 97 12/27/16 03:21 97.7 80 16 124/76 97.7 12/25/16 07:00 4.0 Labs Last Labs Laboratory Tests Test 12/25/16 21:25 12/26/16 02:55 12/26/16 21:24 12/27/16 04:12 Creatine Kinase 368U/L (39-308) Creatine Kinase MB (Mass) 0.6ng/mL (0.0-3.6) Creatine Kinase MB Relative Index 0.2% (0-4) Troponin I Quantitative < 0.017ng/mL (0.000-0.055) White Blood Count 13.9x10^3/uL (4.0-11.0) Red Blood Count 3.22x10^6/uL (4.30-5.70) Hemoglobin 9.6g/dL (13.0-17.5) 9.3g/dL (13.0-17.5) Hematocrit 29.1% (39.0-53.0) Mean Corpuscular Volume 90fL (79-100) Mean Corpuscular Hemoglobin 30pg (25-35) Mean Corpuscular Hemoglobin Concent 33g/dL (31-37) Red Cell Distribution Width 14.6% (11.5-14.5) Platelet Count 570x10^3/uL (140-400) Neutrophils (%) (Auto) 64% (31-73) Lymphocytes (%) (Auto) 19% (24-48) Monocytes (%) (Auto) 16% (0-9) Eosinophils (%) (Auto) 1% (0-3) Basophils (%) (Auto) 2% (0-3) Neutrophils # (Auto) 8.8x10^3uL (1.8-7.7) Lymphocytes # (Auto) 2.6x10^3/uL (1.0-4.8) Monocytes # (Auto) 2.2x10^3/uL (0.0-1.1) Eosinophils # (Auto) 0.1x10^3/uL (0.0-0.7) Basophils # (Auto) 0.2x10^3/uL (0.0-0.2) Segmented Neutrophils % 61% (35-66) Lymphocytes % 24% (24-48) Monocytes % 13% (0-10) Eosinophils % 1% (0-5) Basophils % 1% (0-3) Platelet Estimate Increased (ADEQUATE) Large Platelets Present Poikilocytosis Present Anisocytosis Slight Target Cells Present Sodium Level 135mmol/L (136-145) 135mmol/L (136-145) Potassium Level 5.1mmol/L (3.5-5.1) 5.2mmol/L (3.5-5.1) Chloride Level 95mmol/L (98-107) 96mmol/L (98-107) Carbon Dioxide Level 28mmol/L (21-32) 25mmol/L (21-32) Anion Gap 12 (6-14) 14 (6-14) Blood Urea Nitrogen 47mg/dL (8-26) 63mg/dL (8-26) Creatinine 5.4mg/dL (0.7-1.3) 6.3mg/dL (0.7-1.3) Estimated GFR (Cockcroft-Gault) 13.7 11.5 BUN/Creatinine Ratio 9 (6-20) Glucose Level 100mg/dL (70-99) 135mg/dL (70-99) Calcium Level 9.7mg/dL (8.5-10.1) 9.4mg/dL (8.5-10.1) Magnesium Level 2.0mg/dL (1.8-2.4) 1.9mg/dL (1.8-2.4) Total Bilirubin 0.4mg/dL (0.2-1.0) Aspartate Amino Transf (AST/SGOT) 29U/L (15-37) Alanine Aminotransferase (ALT/SGPT) 29U/L (16-63) Alkaline Phosphatase 85U/L (46-116) Total Protein 9.6g/dL (6.4-8.2) Albumin 3.6g/dL (3.4-5.0) 3.3g/dL (3.4-5.0) Albumin/Globulin Ratio 0.6 (1.0-1.7) Urine Collection Type Unknown Urine Color Yellow Urine Clarity Cloudy Urine pH 5.5 Urine Specific [place] 1.015 Urine Protein 100mg/dL (NEG-TRACE) Urine Glucose (UA) Negativemg/dL (NEG) Urine Ketones (Stick) Negativemg/dL (NEG) Urine Blood Small (NEG) Urine Nitrite Negative (NEG) Urine Bilirubin Negative (NEG) Urine Urobilinogen Dipstick 0.2mg/dL (0.2 mg/dL) Urine Leukocyte Esterase Small (NEG) Urine RBC 1-2/HPF (0-2) Urine WBC 5-10/HPF (0-4) Urine Squamous Epithelial Cells Occ/LPF Urine Transitional Epithelial Cells Occ/LPF Urine Bacteria 0/HPF (0-FEW) Urine Hyaline Casts Few/HPF Urine Mucus Mod/LPF Phosphorus Level 5.9mg/dL (2.6-4.7) Laboratory Tests Test 12/26/16 21:24 12/27/16 04:12 Urine Collection Type Unknown Urine Color Yellow Urine Clarity Cloudy Urine pH 5.5 Urine Specific [place] 1.015 Urine Protein 100mg/dL (NEG-TRACE) Urine Glucose (UA) Negativemg/dL (NEG) Urine Ketones (Stick) Negativemg/dL (NEG) Urine Blood Small (NEG) Urine Nitrite Negative (NEG) Urine Bilirubin Negative (NEG) Urine Urobilinogen Dipstick 0.2mg/dL (0.2 mg/dL) Urine Leukocyte Esterase Small (NEG) Urine RBC 1-2/HPF (0-2) Urine WBC 5-10/HPF (0-4) Urine Squamous Epithelial Cells Occ/LPF Urine Transitional Epithelial Cells Occ/LPF Urine Bacteria 0/HPF (0-FEW) Urine Hyaline Casts Few/HPF Urine Mucus Mod/LPF Hemoglobin 9.3g/dL (13.0-17.5) Sodium Level 135mmol/L (136-145) Potassium Level 5.2mmol/L (3.5-5.1) Chloride Level 96mmol/L (98-107) Carbon Dioxide Level 25mmol/L (21-32) Anion Gap 14 (6-14) Blood Urea Nitrogen 63mg/dL (8-26) Creatinine 6.3mg/dL (0.7-1.3) Estimated GFR (Cockcroft-Gault) 11.5 Glucose Level 135mg/dL (70-99) Calcium Level 9.4mg/dL (8.5-10.1) Phosphorus Level 5.9mg/dL (2.6-4.7) Magnesium Level 1.9mg/dL (1.8-2.4) Albumin 3.3g/dL (3.4-5.0) Assessment Assessment Problems Medical Problems: (1) ARF (acute renal failure) Status: Acute (2) CAP (community acquired pneumonia) Status: Acute Problems: Plan Plan of Care Problems Medical Problems: (1) ARF (acute renal failure) Status: Acute (2) CAP (community acquired pneumonia) Status: Acute KEVIN BRANDON MD Dec 27, 2016 10:23
[2016-12-27 11:43] LABS: INR 1.2 (0.8-1.1); PROTHROMBIN TIME PATIENT 14.4 SEC (11.7-14.0)
[2016-12-27 15:23] VITALS: BP 105/59
--- NOTE | 2016-12-27 17:18 | PDOC ---
PROGRESS NOTES Chief Complaint Chief Complaint Encephalopathy, delirium, dysphagia ASSESSMENT AND PLAN: 1. Dysphagia: failed video swallow 12/20, with some improvement on rpt 12/26. honey thickened liquids. cont SP exercises. needs reeval before advancing diet 2. Seizure: appreciate neuro input. provoked, with mult drug abuse. low dose keppra [id number], then wean off 3. Cardiac arrest PEA (12/08); TTE EF of 30-35%. on ASA. clinically asymptomatic 4. Acute respiratory failure, likely multifactorial; s/p mechanical ventilation (12/08), resolving. 5. ASHLEY: on HD as per Dr Jones. pland perm cath in AM 6. 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 prob acute injuries at time of cardiac arrest. monitor, F/U in Wound clinic 7. Cachexia: NGT feeds, thickened liquids. start supplements 8. Prophylaxis: Heparin, H2B 9. Dispo: home post venous access and arranging HD on O/P basis Vitals Vitals Vital Signs Date Time Temp Pulse Resp B/P Pulse Ox O2 Delivery O2 Flow Rate FiO2 12/27/16 16:03 Room Air 12/27/16 15:23 97.7 93 16 105/59 98 97.7 Physical Exam Physical Exam General: Alert, Cooperative, No acute distress Heart: Regular rate, No murmurs, Other Lungs: Clear Abdomen: Normal bowel sounds, Soft Extremities: No clubbing Skin: Other (dry gangrene toes B) Labs LABS Laboratory Tests Test 12/26/16 21:24 12/27/16 04:12 12/27/16 11:00 Urine Collection Type Unknown Urine Color Yellow Urine Clarity Cloudy Urine pH 5.5 Urine Specific [place] 1.015 Urine Protein 100mg/dL (NEG-TRACE) Urine Glucose (UA) Negativemg/dL (NEG) Urine Ketones (Stick) Negativemg/dL (NEG) Urine Blood Small (NEG) Urine Nitrite Negative (NEG) Urine Bilirubin Negative (NEG) Urine Urobilinogen Dipstick 0.2mg/dL (0.2 mg/dL) Urine Leukocyte Esterase Small (NEG) Urine RBC 1-2/HPF (0-2) Urine WBC 5-10/HPF (0-4) Urine Squamous Epithelial Cells Occ/LPF Urine Transitional Epithelial Cells Occ/LPF Urine Bacteria 0/HPF (0-FEW) Urine Hyaline Casts Few/HPF Urine Mucus Mod/LPF Hemoglobin 9.3g/dL (13.0-17.5) Sodium Level 135mmol/L (136-145) Potassium Level 5.2mmol/L (3.5-5.1) Chloride Level 96mmol/L (98-107) Carbon Dioxide Level 25mmol/L (21-32) Anion Gap 14 (6-14) Blood Urea Nitrogen 63mg/dL (8-26) Creatinine 6.3mg/dL (0.7-1.3) Estimated GFR (Cockcroft-Gault) 11.5 Glucose Level 135mg/dL (70-99) Calcium Level 9.4mg/dL (8.5-10.1) Phosphorus Level 5.9mg/dL (2.6-4.7) Magnesium Level 1.9mg/dL (1.8-2.4) Albumin 3.3g/dL (3.4-5.0) Prothrombin Time 14.4SEC (11.7-14.0) Prothromb Time International Ratio 1.2 (0.8-1.1) Review of Systems Review of Systems walking with PT, walker. happy about some nutrition by mouth ALETA JAMIL MD Dec 27, 2016 17:18
--- NOTE | 2016-12-27 19:19 | PDOC ---
PROGRESS NOTES Assessment Assessment Seizure, provoked. Cocaine, Cannabinoids, opiates, benzo positive in system. 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 Metabolic encephalopathy. Respiratory failure. Renal failure on dialysis. Bilateral pulmonary infiltrate. CVA symptoms but no evidence of acute CVA this time. RECOMMENDATIONS/PLAN: Keppra to 250 mg bid and taper it off in 2 weeks. His seizures were not epileptic. Treat medical diseases. Patient education for substances and drugs abstinence. Discussed in detail with his in all detail again in lengthy time at bedside multiple times. Brain MRI 12/19: No acute CVA. EEG on 12/19: No seizure activity except the posterior dominant rhythm is slow for his age. HISTORY OF THE PRESENT ILLNESS: This is a 51-y-old AA male patient who was initailly admitted into the hospital due to medical diseases. He was intubated since but extubated on 12/18. He had several brief seizures or seizure like episodes and over night described as eye open, stiffness with some shaking movements for 20 seconds to 1 minute. He also had speech slurring and speech problems from time to time per nurse. No focalized motor deficits noted. He had episodes of so called aphasia, but he was able to write clearly. He resumed talking after talking to him. No seizure like episodes since 12/19. PAST MEDICAL HISTORY: Please see above. PAST SURGERY HISTORY: No major surgery recently. ALLERGY: Reviewed. MEDICATIONS: Refer to [facility] FAMILY HISTORY: Non contributory. SOCIAL HISTORY: Lives with his family. Smoking, drinking, and illicit drug use. Cocaine, Cannabinoids, benzo, opiates positive in system. He uses drugs on regular basis. REVIEW OF SYSTEMS: Constitutional: Malnutrition. Head: No recent traumatic brain or head injury. Skin: No edema, or rash. Ear: No infection, tinnitus. Eyes: No vision loss or color blindness. Nose: No bleeding or purulent discharges. Hearing: No hearing decrease. Neck: No injury.. Cardiac: No TX, arrhythmia Pulmonary: Pneumonia this time. GI: No GI ulcer, GI bleeding. Urinary/genital: Renal failure this time. Endocrinologic: No cousin face, craniofacial dysmorphism, polydactyly Skeletomuscular: Generalized weakness. Neurological: see HP. Psychiatric: Drug use/abuse. Otherwise, not [id number] review of systems. PHYSICAL EXAMINATION: General appearance is in no acute distress. HEENT: Normocephalic and nontraumatic. Eyes, nose, ears, and throat are unremarkable. Neck is supple. No lymphadenopathy. No bruits are heard over the carotid artery. No crepitus. Cardiovascular: S1, S2, regular rate and rhythm. Pulmonary: Decreased to auscultation bilaterally. Abdomen: Bowel sounds are positive. Extremities: No rash, lesions, or edema. No restriction of range of motion NEUROLOGICAL EXAMINATION: Awake. He speaks clearly at exam. Partially oriented to time, and knows place and person. PERRL. EOMI. CN: no focal findings. Muscle tone: within normal. Muscle strength: 5 DTR: 2 Plantar reflex: Flexor response bilaterally Gait: able to walk with walker in Hallway. Sensory exam: no abnormal findings. No obvious cerebellar signs elicited. F-T-N test not accurate. Objective Objective Vital Signs Date Time Temp Pulse Resp B/P Pulse Ox O2 Delivery O2 Flow Rate FiO2 12/27/16 16:03 Room Air 12/27/16 15:23 97.7 93 16 105/59 98 97.7 Intake and Output 12/27/16 07:00 Intake Total 745 ml Output Total 200 ml Balance 545 ml Intake Oral 720 ml Tube Feeding 25 ml Output Urine Total 200 ml # Voids 4 Vitals Signs Vitals VS - Last 72 Hours, by Label Date Time Temp Pulse Resp B/P Pulse Ox O2 Delivery O2 Flow Rate FiO2 12/27/16 16:03 Room Air 12/27/16 15:23 97.7 93 16 105/59 98 Room Air 97.7 12/27/16 11:03 Room Air 12/27/16 08:00 Room Air 12/27/16 07:47 97 Room Air 12/27/16 03:21 97.7 80 16 124/76 95 Room Air 97.7 12/26/16 23:16 98.3 85 18 111/77 96 Room Air 98.3 12/26/16 20:26 97 Room Air 12/26/16 20:00 Room Air 12/26/16 19:42 98.8 81 20 105/75 97 Room Air 98.8 12/26/16 15:59 97 Room Air 12/26/16 15:10 97.9 83 16 126/71 100 Room Air 97.9 12/26/16 11:56 95 Room Air 12/26/16 11:37 97.5 68 16 123/63 94 Room Air 97.5 12/26/16 08:00 Room Air 12/26/16 07:50 97.9 79 16 100/51 98 Room Air 97.9 12/26/16 07:40 97 Room Air Laboratory Laboratory Laboratory Tests Test 12/26/16 21:24 12/27/16 04:12 12/27/16 11:00 Urine Collection Type Unknown Urine Color Yellow Urine Clarity Cloudy Urine pH 5.5 Urine Specific Phelps 1.015 Urine Protein 100mg/dL (NEG-TRACE) Urine Glucose (UA) Negativemg/dL (NEG) Urine Ketones (Stick) Negativemg/dL (NEG) Urine Blood Small (NEG) Urine Nitrite Negative (NEG) Urine Bilirubin Negative (NEG) Urine Urobilinogen Dipstick 0.2mg/dL (0.2 mg/dL) Urine Leukocyte Esterase Small (NEG) Urine RBC 1-2/HPF (0-2) Urine WBC 5-10/HPF (0-4) Urine Squamous Epithelial Cells Occ/LPF Urine Transitional Epithelial Cells Occ/LPF Urine Bacteria 0/HPF (0-FEW) Urine Hyaline Casts Few/HPF Urine Mucus Mod/LPF Hemoglobin 9.3g/dL (13.0-17.5) Sodium Level 135mmol/L (136-145) Potassium Level 5.2mmol/L (3.5-5.1) Chloride Level 96mmol/L (98-107) Carbon Dioxide Level 25mmol/L (21-32) Anion Gap 14 (6-14) Blood Urea Nitrogen 63mg/dL (8-26) Creatinine 6.3mg/dL (0.7-1.3) Estimated GFR (Cockcroft-Gault) 11.5 Glucose Level 135mg/dL (70-99) Calcium Level 9.4mg/dL (8.5-10.1) Phosphorus Level 5.9mg/dL (2.6-4.7) Magnesium Level 1.9mg/dL (1.8-2.4) Albumin 3.3g/dL (3.4-5.0) Prothrombin Time 14.4SEC (11.7-14.0) Prothromb Time International Ratio 1.2 (0.8-1.1) Microbiology 12/07/16 Blood Culture - Final, Complete NO GROWTH AFTER 5 DAYS 12/07/16 Stool Culture - Final, Complete 12/07/16 Stool Culture Result 1 (NEFTALI) - Final, Complete 12/07/16 Campylobacter Antigen Assay - Final, Complete 12/07/16 Campylobactor Result 1 - Final, Complete 12/07/16 Shiga Toxin Test - Final, Complete 12/12/16 AFB Specimen Processing Tissue - Final, Resulted 12/12/16 Acid Fast Bacilli Culture, Resulted Pending 12/12/16 Gram Stain - Final, Resulted 12/12/16 Fungal Culture - Preliminary, Resulted 12/12/16 Fungal Culture Result 1 - Preliminary, Resulted 12/26/16 Urine Culture - Preliminary, Resulted 12/26/16 Urine Culture Result 1 (NEFTALI) - Preliminary, Resulted Medication Medications Current Medications Albumin Human (Albuminar) 200 ml @ 200 mls/hr 1X PRN PRN IV Hypotension; Start 12/27/16 at 09:15; Stop 12/27/16 at 15:14; Status DC Info (PHARMACY MONITORING -- do not chart) 1 each PRN DAILY PRN MC SEE COMMENTS ; Start 12/27/16 at 09:15; Status UNV Info (PHARMACY MONITORING -- do not chart) 1 each PRN DAILY PRN MC SEE COMMENTS ; Start 12/27/16 at 09:15; Status UNV Sodium Chloride 1,000 ml @ 1,000 mls/hr Q1H PRN IV hypotension; Start 12/27/16 at 09:12; Stop 12/27/16 at 15:11; Status DC Sodium Chloride (Iv Sodium Chloride 0.9% 1000ml Bag) 1,000 ml @ 400 mls/hr Q2H30M PRN IV PATENCY; Start 12/27/16 at 09:12; Stop 12/27/16 at 21:11 Sodium Chloride (Normal Saline Flush) 10 ml 1X PRN PRN IV AP catheter pack; Start 12/27/16 at 09:15; Stop 12/28/16 at 09:14 Sodium Chloride 10 ml 10 ml 1X PRN PRN IV GAGE DESIGNER catheter pack; Start 12/27/16 at 09 :15; Stop 12/28/16 at 09:14 Comment Review of Relevant I have reviewed the following items immanuel (where applicable) has been applied. COLLETTE MOYER MD Dec 27, 2016 19:19
[2016-12-27 19:41] VITALS: BP 102/61
[2016-12-27] MEDS: FAMOTIDINE 20 MG TABLET. PO SCH (21:09)
[2016-12-27 23:31] VITALS: BP 124/70
[2016-12-28] VITALS (8 sets, daily range): BP systolic 78–118; BP diastolic 34–61
[2016-12-28 00:10] LABS: HEP B SURFACE ABDY Non Reactive (.)
[2016-12-28] MEDS: BUDESONIDE 0.5 MG/2 ML NEBU NEB SCH (07:29)
[2016-12-28] MEDS: IPRATROPIUM BROMIDE 0.5 MG/2.5 ML NEBU. NEB SCH ×2 (07:30→11:13)
[2016-12-28] MEDS ORDERED: HEPARIN for IV BOLUS 10,000 UNIT/10 ML VIAL. ONE (08:15)
[2016-12-28] MEDS ORDERED: LIDOCAINE 1%/EPI 1:100,000 20 ML VIAL. ONE (08:15)
[2016-12-28] MEDS ORDERED: MIDAZOLAM HCL 2 MG/2 ML VIAL. ONE ×2 (08:25→08:46)
[2016-12-28] MEDS ORDERED: FENTANYL PF 100 MCG/2 ML VIAL. ONE ×2 (08:26→08:46)
[2016-12-28] MEDS ORDERED: CEFAZOLIN 1GM IVPB FOR OMNI 50 ML IV ONE ×2 (08:26→09:00)
--- NOTE | 2016-12-28 08:35 | PDOC ---
PROGRESS NOTES Chief Complaint Chief Complaint Encephalopathy, delirium, dysphagia ASSESSMENT AND PLAN: 1. Dysphagia: failed video swallow 12/20, with some improvement on rpt 12/26. honey thickened liquids. cont SP exercises. needs reeval before advancing diet 2. Seizure: appreciate neuro input. provoked, with mult drug abuse. low dose keppra [id number] completed 3. Cardiac arrest PEA (12/08); TTE EF of 30-35%. on ASA. clinically asymptomatic 4. Acute respiratory failure, likely multifactorial; s/p mechanical ventilation (12/08), resolved 5. ASHLEY: on HD as per Dr Jones. perm cath placed 12/27. O/P HD as per Dr Jones 6. 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 prob acute injuries at time of cardiac arrest. monitor, F/U in Wound clinic in 2 weeks 7. Cachexia: NGT feeds, thickened liquids. start supplements 8. Prophylaxis: Heparin, H2B 9. Dispo: home today Vitals Vitals Vital Signs Date Time Temp Pulse Resp B/P Pulse Ox O2 Delivery O2 Flow Rate FiO2 12/28/16 07:32 100 Room Air 12/28/16 07:00 98.0 94 20 111/58 98.0 Physical Exam Physical Exam General: Alert, Cooperative, No acute distress Heart: Regular rate, No murmurs, Other Lungs: Clear Abdomen: Normal bowel sounds, Soft Extremities: No clubbing Skin: Other (dry gangrene toes B) Labs LABS Laboratory Tests Test 12/27/16 11:00 Prothrombin Time 14.4SEC (11.7-14.0) Prothromb Time International Ratio 1.2 (0.8-1.1) Review of Systems Review of Systems in good spirits. eager to go home ALETA JAMIL MD Dec 28, 2016 08:35
[2016-12-28] MEDS ORDERED: FENTANYL PF 100 MCG/2 ML VIAL. IV ONE (09:00)
[2016-12-28] MEDS ORDERED: LIDOCAINE 1%/EPI 1:100,000 20 ML VIAL. IJ ONE (09:00)
[2016-12-28] MEDS ORDERED: MIDAZOLAM HCL 2 MG/2 ML VIAL. IV ONE (09:00)
--- NOTE | 2016-12-28 09:14 | PDOC ---
MODERATE SEDATION ASSESSMENT RISKS/ALTERNATIVES Risks/Alternatives Risks and alternatives of this type of sedation and procedure discussed with: RISK/ALTERNATIVES: Patient H & P ON CHART H & P H & P on chart and reviewed for co-morbid conditions and appropriate labs. H&P ON CHART: Yes STATUS PREG STATUS ASSESSED: N/A MEDS/ALLERGIES REVIEWED Meds/Allergies Reviewed Medications and Allergies including time and route of recently administered narcotics and sedatives. MEDS/ALLERGIES REVIEWED: Yes ASA RATING ASA RATING: III AIRWAY ASSESSMENT Airway Assessment Airway patency, oral function limitations, presence of caps, crowns, dentures, partials, and ability to extend neck assessed. AIRWAY ASSESSMENT: Yes MALLAMPATI SCORE MALLAMPATI SCORE: II PRE-SEDATION ASSESSMENT PRE-SEDATION ASSESSMENT: Yes ELSA CASTAÑEDA MD Dec 28, 2016 09:14
--- NOTE | 2016-12-28 09:19 | PDOC ---
Exam Sign Painter Helper Sign Painter Helper Huong Scientific Photographer Scientific Photographer Julia Randall Pre-Procedure Diagnosis Pre-Procedure Diagnosis 51 YO male s/p PEA cardiac arrest, with ASHLEY/ARF---needs ongoing HD. Conversion from temp to tunneled HDC requested. Post-Procedure Diagnosis Post-Procedure Diagnosis Same Procedure Performed Procedure Performed Removal rt IJ temp HDC Sono/fluoro guided insertion rt IJ tunneled HDC---new venous access Type of Anesthesia Type of Anesthesia Local + Mod sedation Estimated Blood Loss EBL: Minimal Specimens Specimans 14F 20cm Schon rt IJ temp HDC removed and discarded Drain/Tubes Drains/Tubes Rt IJ 15.5F 28cm DuraMax tunneled HDC inserted Condition of Patient Condition of Patient Stable. No apparent complication. Disposition Disposition From IR return to [facility] for recovery. F/u with Renal. OK to use tunneled HDC. Full report to follow. ELSA CASTAÑEDA MD Dec 28, 2016 09:18
[2016-12-28] MEDS: ASPIRIN 81 MG TAB.CHEW PO SCH (09:51)
[2016-12-28] MEDS: LEVETIRACETAM 250 MG TABLET. PO SCH (09:52)
[2016-12-28] MEDS ORDERED: ASPI81TA44 PO (11:52)
[2016-12-28] MEDS ORDERED: TRAM50TA PO (11:52)
[2016-12-28] MEDS ORDERED: ACET500T55 PO (11:52)
[2016-12-28] MEDS ORDERED: FAMO20TA5 PO (11:52)
--- NOTE | 2016-12-28 13:14 | PDOC ---
CARDIO Progress Notes Date and Time Date of Service 12/28/2016 Time of Evaluation 1300 Subjective Subjective: No Chest Pain, No shortness of breath, No Palpitations, No Dizziness Vitals Vitals Vital Signs Date Time Temp Pulse Resp B/P Pulse Ox O2 Delivery O2 Flow Rate FiO2 12/28/16 11:13 100 Room Air 12/28/16 10:45 98.0 88 20 118/55 98.0 12/28/16 09:06 2.0 Weight Weight [ ] Input and Output Intake and Output Intake and Output 12/28/16 07:00 Intake Total 350 ml Output Total 610 ml Balance -260 ml Intake Oral 350 ml Output Urine Total 610 ml Microbiology Micro Microbiology 12/07/16 Blood Culture - Final, Complete NO GROWTH AFTER 5 DAYS 12/07/16 Stool Culture - Final, Complete 12/07/16 Stool Culture Result 1 (NEFTALI) - Final, Complete 12/07/16 Campylobacter Antigen Assay - Final, Complete 12/07/16 Campylobactor Result 1 - Final, Complete 12/07/16 Shiga Toxin Test - Final, Complete 12/12/16 AFB Specimen Processing Tissue - Final, Resulted 12/12/16 Acid Fast Bacilli Culture, Resulted Pending 12/12/16 Gram Stain - Final, Resulted 12/12/16 Fungal Culture - Preliminary, Resulted 12/12/16 Fungal Culture Result 1 - Preliminary, Resulted 12/26/16 Urine Culture - Final, Complete 12/26/16 Urine Culture Result 1 (NEFTALI) - Final, Complete Review of Systems Constitutional: yes: alert, oriented, weakness Ears/Nose/Throat: Yes: no symptom reported Eyes: Yes: no symptom reported Pulmonary: Yes no symptom reported Cardiovascular: Yes no symptom reported Gastrointestional: Yes: no symptom reported Genitourinary: Yes: no symptom reported Musculoskeletal: Yes: muscle atrophy, muscle stiffness Physical Exam HEENT: Neck Supple W Full Motion Chest: Symmetric LUNGS: Clear to Auscultation Heart: S1S2, RRR (off tele), other (tele: SR) Abdomen: Soft N/T Extremities: 2+ Dorsalis Pedis, No Edema, No Calf Tenderness Neurology: alert, oriented, follow commands Assessment Assessment 1. Acute respiratory failure: resolved 2. Acute systolic heart failure: compensated 3. S/p PEA arrest likely associated with recreational drug use and seizures. 4. Non-ischemic cardiomyopathy; Recent LHC with no coronary disease. LVEF 30-35 % 5. Abnormal EKG: Noted with diffuse symmetrical T wave inversions, cardiac enzymes not compatible ACS, suspect from current neurological disease. CP likely from GI 6. Seizures 7. Polysubstance abuse: Cocaine, Cannabinoids, opiates, benzodiazepine 8. ASHLEY/ATN: on HD 9. Dyslipidemia: LDL 22, HDL 29, TG 315 10. Dysphagia: much improved. Recommendations Fluid off loading per HD BP much better. Occasional low BP but othersiwe better controlled with adequacy. Start on metoprolol 12.5 mg po bid and hold if SBP<100. discussed home BP monitoring with pt. No statin at this time with LDL currently at 22. He verbalized complete cessation of substance abuse and serious about lifestyle modification. Discussed and encouraged 4 week follow up with cardiology once he notes his schedule availability. Will defer any ACEi/ARB to nephrology Will plan for repeat TTE in 3 months. NIMA MARCANO APRN Dec 28, 2016 13:14
[2016-12-28] MEDS: ACETAMINOPHEN 500 MG TABLET PO PRN (13:33)
--- NOTE | 2016-12-28 13:53 | PDOC ---
SUBJECTIVE ROS ASHLEY/ ATN Feels ready to go home CVS: no Orthopnea, no CP RESP: no SOB, no GLASGOW GI: no Nausea, no Vomiting : no Dysuria, no Urgency OBJECTIVE Vital Signs Vital Signs Date Time Temp Pulse Resp B/P Pulse Ox O2 Delivery O2 Flow Rate FiO2 12/28/16 11:13 100 Room Air 12/28/16 10:45 98.0 88 20 118/55 98.0 12/28/16 09:06 2.0 I & 0 Intake and Output 12/28/16 07:00 Intake Total 350 ml Output Total 610 ml Balance -260 ml Intake Oral 350 ml Output Urine Total 610 ml PHYSICAL EXAM Physical Exam GEN: Awake, Oriented x 3, In no distress EYES: Vision Unchanged, Conjunctiva Normal EN: No EN Drainage, Mucous Membranes moist NECK: no JVD, no JVP, Supple, no Thyromegaly CVS: S1S2, no Murmur, No Gallop, No Rub,no Edema RESP: no Rales, no Rhonchi,no Acc. Muscle Use GI: BS + ve, NO Bruit, Non Tender, Non Distended : no CVA tenderness, no Suprapubic Tenderness DIAGNOSIS/ASSESSMENT Assessment & Plan ASHLEY/ ATN : Current fluid and E-lyte status does not necessitate emergent need for dialysis. Will re-evaluate for dialysis in the am and continue on TTSat schedule as OP ANEMIA; Aranesp as ordered, Transfuse with next HD as needed HTN: Current BP meds as reviewed. See orders for changes. ? Renal mass - Needs OP F/up with URO Discussed Plan of Care with pt at bedside - Pt voiced understanding of Plan Problems: COMMENT/RELEVANT DATA Meds Current Medications Medications (Trade) Dose Ordered Sig/Flakito Start Time Stop Time Status Last Admin Dose Admin Acetaminophen (Tylenol) 500 mg 1X PRN PRN 12/22/16 08:45 12/23/16 08:44 DC Acetylcysteine (Mucomyst 20% Oral Solution) 1,200 mg BID 12/12/16 09:00 12/14/16 08:17 DC 12/13/16 20:50 1,200 MG Albumin Human (Albuminar) 200 ml @ 200 mls/hr 1X PRN PRN 12/27/16 09:15 12/27/16 15:14 DC Albuterol/ Ipratropium (Duoneb) 3 ml RTQID 12/08/16 12:30 12/09/16 05:17 DC 12/08/16 19:44 3 ML Alprazolam (Xanax) 0.5 mg 1X ONCE 12/08/16 08:45 12/08/16 08:46 DC 12/08/16 08:40 0.5 MG Amino Acids/ Glycerin/ Electrolytes (Procalamine) 1,000 ml @ 80 mls/hr [id number] 12/20/16 11:00 12/22/16 12:55 DC 12/22/16 04:52 80 MLS/HR Aspirin (Aspirin) 300 mg 1X ONCE 12/08/16 10:45 12/08/16 10:46 DC Aspirin (Jada Aspirin) 325 mg [id number] 12/09/16 08:00 12/09/16 08:00 DC Aspirin (Children'S Aspirin) 81 mg [id number] 12/09/16 08:00 12/28/16 09:51 81 MG Atropine Sulfate 0.5 mg PRN Q5MIN PRN 12/16/16 12:15 Azithromycin 250 ml @ 250 mls/hr 1X ONCE 12/07/16 15:15 12/07/16 16:14 DC 12/07/16 15:48 250 MLS/HR Barium Sulfate (Varibar Honey) 250 ml 1X ONCE 12/20/16 14:00 12/20/16 14:07 DC Barium Sulfate (Varibar Thin Liquid) 148 gm 1X ONCE 12/20/16 15:15 12/20/16 15:16 DC 12/20/16 15:17 148 GM Barium Sulfate 148 gm 148 gm 1X ONCE 12/26/16 11:15 12/26/16 11:16 DC 12/26/16 11:27 148 GM Budesonide 0.5 mg 0.5 mg RTBID 12/08/16 12:30 12/28/16 07:29 0.5 MG Calcium Gluconate 1000 mg 1,000 mg 1X ONCE 12/10/16 10:00 12/10/16 10:01 UNV Calcium Gluconate 2000 mg 2,000 mg TID 12/10/16 14:00 12/10/16 14:00 DC Calcium Gluconate/ Sodium Chloride (Iv Sodium Chloride 0.9% 100ml) 110 ml @ 220 mls/hr 1X ONCE 12/10/16 12:00 12/10/16 12:29 DC 12/10/16 11:36 220 MLS/HR Cefazolin Sodium (Ancef 1gm Ivpb For Omni) 50 ml @ 100 mls/hr 1X ONCE 12/28/16 09:00 12/28/16 09:29 DC 12/28/16 09:05 100 MLS/HR Ceftriaxone Sodium 1 gm/ Sodium Chloride 50 ml @ 100 mls/hr Q24H 12/08/16 15:30 12/08/16 15:30 DC Ceftriaxone Sodium (Rocephin 1gm Ivpb For Omni) 50 ml @ 100 mls/hr 1X ONCE 12/07/16 15:15 12/07/16 15:44 DC 12/07/16 15:29 100 MLS/HR Chlorhexidine Gluconate 15 ml 15 ml BID 12/09/16 09:00 12/19/16 08:54 DC 12/18/16 21:49 15 ML Clonidine HCl (Catapres) 0.1 mg 1X PRN PRN 12/22/16 08:45 12/23/16 08:44 DC Darbepoetin Koffi 60 mcg 60 mcg [id number] 12/14/16 21:00 12/21/16 22:29 60 MCG Dexmedetomidine HCl 200 mcg/ Sodium Chloride 50 ml @ 0 mls/hr CONT PRN 12/16/16 12:15 12/18/16 07:51 DC 12/17/16 18:11 23.3 MLS/HR Diphenhydramine HCl (Benadryl) 25 mg 1X PRN PRN 12/25/16 09:30 12/26/16 09:29 DC Dobutamine HCl/ Dextrose 250 ml @ 0 mls/hr CONT PRN 12/11/16 14:45 12/23/16 11:24 DC 12/11/16 15:05 4.601 MLS/HR Dopamine HCl/ Dextrose 250 ml @ 10.084 mls/ hr CONT PRN 12/08/16 10:15 12/21/16 10:35 DC 12/08/16 10:00 20.167 MLS/HR Doxycycline Hyclate/Dextrose 100 ml @ 50 mls/hr Q12HR 12/09/16 13:00 12/14/16 08:34 DC 12/13/16 20:50 50 MLS/HR Enoxaparin Sodium (Lovenox 40mg Syringe) 40 mg Q24H 12/17/16 16:00 12/19/16 07:31 DC 12/18/16 16:19 40 MG Epinephrine HCl 3 mg STK-MED ONCE 12/08/16 10:30 12/09/16 13:18 DC Etomidate (Amidate) 20 mg STK-MED ONCE 12/08/16 13:00 12/08/16 13:01 DC Famotidine (Pepcid) 20 mg Q48H 12/23/16 21:00 12/27/16 21:09 20 MG Fentanyl Citrate (Fentanyl 2ml Vial) 100 mcg STK-MED ONCE 12/28/16 08:46 12/28/16 08:47 DC Fentanyl Citrate (Fentanyl 600 Mcg/30 ml [employer]AFF [employer]ING [employer] 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) 30 ml @ 0 mls/hr CONT PRN 12/09/16 05:15 12/24/16 12:16 DC 12/17/16 04:54 2.5 MLS/HR Fentanyl Citrate 150 mcg 150 mcg 1X ONCE 12/28/16 09:00 12/28/16 09:01 DC 12/28/16 09:04 150 MCG Furosemide 100 mg/ Sodium Chloride 100 ml @ 0 mls/hr CONT PRN 12/13/16 10:00 12/14/16 08:17 DC 12/13/16 11:43 2.5 MLS/HR Furosemide 20 mg 20 mg 1X ONCE 12/11/16 10:00 12/11/16 10:03 DC 12/11/16 11:10 20 MG Furosemide 40 mg 40 mg 1X ONCE 12/19/16 08:00 12/19/16 08:01 DC 12/19/16 08:13 40 MG Heparin Sodium (Porcine) 4,200 unit 1X ONCE 12/28/16 09:00 12/28/16 09:01 DC 12/28/16 09:03 4,300 UNIT Heparin Sodium (Porcine) 4000 unit 4,000 unit 1X ONCE 12/08/16 09:30 12/08/16 14:21 DC Heparin Sodium (Porcine) 5000 unit 5,000 unit Q8HRS 12/08/16 14:00 12/08/16 14:00 DC Heparin Sodium/ Dextrose 500 ml @ 0 mls/hr CONT PRN 12/08/16 12:45 12/13/16 13:10 DC 12/09/16 13:11 0 MLS/HR Heparin Sodium/ Sodium Chloride 1,000 unit 1X ONCE 12/28/16 09:00 12/28/16 09:01 DC 12/28/16 09:03 1,000 UNIT Hydralazine HCl (Apresoline) 10 mg PRN Q4HRS PRN 12/19/16 12:00 Influenza Virus Vaccine Quadrival (Fluarix Quad [id number] Syringe) 0.5 ml ONCE ONCE 12/08/16 09:00 12/08/16 09:01 DC Info (Anti-Coagulation Monitoring By Pharmacy) 1 each PRN DAILY PRN 12/11/16 08:15 12/13/16 13:13 DC 12/12/16 08:21 1 EACH Info (Do NOT chart on this placeholder) 1 each 1X ONCE 12/07/16 22:45 12/07/16 22:46 UNV Info (PHARMACY MONITORING -- do not chart) 1 each PRN DAILY PRN 12/27/16 09:15 UNV Info 1 each 1 each PRN DAILY PRN 12/15/16 06:45 Iodixanol (Visipaque 320) 100 ml 1X ONCE 12/12/16 15:30 12/12/16 15:32 DC 12/12/16 15:41 46 ML Ipratropium Glyndon (Atrovent) 0.5 mg RTQID 12/09/16 08:00 12/28/16 11:13 0.5 MG Ketorolac Tromethamine 30 mg 30 mg 1X ONCE 12/07/16 14:30 12/07/16 14:31 DC 12/07/16 14:34 30 MG Labetalol HCl (Normodyne) 10 mg PRN Q1HR PRN 12/22/16 08:45 12/23/16 08:44 DC Levetiracetam (Keppra) 125 mg BID 12/27/16 21:00 12/28/16 09:52 125 MG Levetiracetam/ Sodium Chloride (Keppra/Iv Sodium Chloride 0.9% 100ml) 105 ml @ 400 mls/hr Q12HR 12/19/16 17:00 12/21/16 13:44 DC 12/21/16 09:44 400 MLS/HR Lidocaine HCl 20 ml STK-MED ONCE 12/12/16 15:03 12/12/16 15:04 DC Lidocaine HCl 4 ml 4 ml 1X ONCE 12/12/16 15:30 12/12/16 15:32 DC 12/12/16 15:41 4 ML Lidocaine/ Epinephrine (Xylocaine 1%-Epi 1:100,000) 15 ml 1X ONCE 12/28/16 09:00 12/28/16 09:01 DC 12/28/16 09:03 15 ML Lidocaine/Sodium Bicarbonate (Buffered Lidocaine 1%) 3 ml 1X ONCE 12/12/16 12:15 12/12/16 12:17 DC 12/12/16 13:08 3 ML Linezolid (Zyvox Premix) 300 ml @ 300 mls/hr Q12HR 12/11/16 09:00 12/18/16 07:17 DC 12/17/16 21:24 300 MLS/HR Lorazepam (Ativan) 4 mg PRN Q2HRS PRN 12/19/16 11:30 Lorazepam 1 mg 1 mg PRN Q4HRS PRN 12/19/16 16:30 12/26/16 21:39 1 MG Lorazepam 2 mg 2 mg PRN Q4HRS PRN 12/19/16 16:30 12/24/16 20:50 2 MG Magnesium Sulfate/ Dextrose 50 ml @ 25 mls/hr PRN DAILY PRN 12/26/16 14:00 Magnesium Sulfate/ Dextrose (Magnesium Sulfate PREMIX 2GM) 50 ml @ 25 mls/hr PRN DAILY PRN 12/12/16 08:45 12/13/16 09:57 DC Methocarbamol (Robaxin) 500 mg QID 12/07/16 17:00 12/08/16 10:03 DC 12/07/16 21:19 500 MG Metoprolol Tartrate (Lopressor) 12.5 mg BID 12/28/16 14:00 Midazolam HCl (Versed) 3 mg 1X ONCE 12/28/16 09:00 12/28/16 09:01 DC 12/28/16 09:04 3 MG Morphine Sulfate 2 mg PRN Q2HR PRN 12/07/16 16:30 12/25/16 17:29 DC 12/24/16 18:15 2 MG Nicotine (Nicoderm Cq 21mg) 1 patch PRN DAILY PRN 12/07/16 16:30 Norepinephrine Bitartrate 16 mg/ Sodium Chloride 266 ml @ 0.99 mls/hr CONT PRN 12/09/16 12:00 12/21/16 10:35 DC 12/09/16 20:36 29.92 MLS/HR Norepinephrine Bitartrate 8 mg/ Sodium Chloride 258 ml @ 0 mls/hr CONT PRN 12/08/16 10:15 12/09/16 11:47 DC 12/09/16 08:46 58.05 MLS/HR Ondansetron HCl (Zofran) 4 mg PRN Q6HRS PRN 12/07/16 16:30 12/19/16 02:59 4 MG Oxycodone/ Acetaminophen (Percocet 5/325) 1 tab PRN Q4HRS PRN 12/07/16 16:30 12/23/16 09:28 1 TAB Phenylephrine HCl 1 mg STK-MED ONCE 12/08/16 10:25 12/08/16 10:26 DC Piperacillin Sod/ Tazobactam Sod 2.25 gm/Sodium Chloride 50 ml @ 100 mls/hr Q6HRS 12/15/16 12:00 Cancel Piperacillin Sod/ Tazobactam Sod 3.375 gm/Sodium Chloride 50 ml @ 100 mls/hr Q6HRS 12/09/16 12:00 12/11/16 07:47 DC 12/11/16 06:01 100 MLS/HR Pneumococcal Polyvalent Vaccine (Do NOT chart on this placeholder) 1 each 1X ONCE 12/07/16 22:45 12/07/16 22:46 UNV Pneumococcal Polyvalent Vaccine (Pneumovax 23) 0.5 ml ONCE ONCE 12/08/16 09:00 12/08/16 09:01 DC Potassium Phosphate/Sodium Chloride (Potassium Phosphate/Iv Sodium Chloride 0.9% 100ml) 113.3333 ml @ 52.267 m... PRN 1X PRN 12/13/16 10:00 12/13/16 23:59 DC Potassium Chloride (KCl Premix 20meq) 50 ml @ 25 mls/hr Q2H 12/19/16 08:30 12/19/16 10:29 DC 12/19/16 08:16 25 MLS/HR Propofol (Diprivan) 100 ml @ 0 mls/hr CONT PRN 12/08/16 10:00 12/21/16 10:34 DC 12/08/16 23:49 3.227 MLS/HR Sodium Bicarbonate 150 meq/Dextrose 1,150 ml @ 100 mls/hr [id number] 12/09/16 09:00 12/10/16 12:14 DC 12/10/16 09:34 100 MLS/HR Sodium Bicarbonate/ Sodium Chloride (Iv Sodium Chloride 0.45%) 1,050 ml @ 200 mls/hr Q5H15M 12/08/16 10:30 12/09/16 08:28 DC 12/09/16 05:11 200 MLS/HR Sodium Chloride (Iv Sodium Chloride 0.9% 500ml Bag) 500 ml @ 500 mls/hr 1X PRN PRN 12/16/16 12:15 12/25/16 20:15 500 MLS/HR Sodium Chloride (Iv Sodium Chloride 0.9% 1000ml Bag) 1,000 ml @ 400 mls/hr Q2H30M PRN 12/27/16 09:12 12/27/16 21:11 DC Sodium Chloride (Normal Saline Flush) 10 ml 1X PRN PRN 12/27/16 09:15 12/28/16 09:14 DC Sodium Chloride 10 ml 10 ml 1X PRN PRN 12/27/16 09:15 12/28/16 09:14 DC Sodium Phosphate/ Dextrose 113.3333 ml @ 28.333 m... Q4H 12/14/16 09:00 12/14/16 16:59 DC 12/14/16 14:59 28.333 MLS/HR Succinylcholine Chloride 200 mg 200 mg STK-MED ONCE 12/08/16 13:00 12/08/16 13:01 DC Tramadol HCl (Ultram) 50 mg PRN Q6HRS PRN 12/07/16 16:30 12/25/16 03:28 50 MG Vancomycin HCl 1 gm/Sodium Chloride 250 ml @ 250 mls/hr 1X ONCE 12/08/16 14:00 12/08/16 14:59 DC 12/08/16 14:21 250 MLS/HR Zolpidem Tartrate (Ambien) 5 mg PRN QHS PRN 12/07/16 16:30 12/08/16 10:03 DC 12/08/16 01:06 5 MG KEVIN BRANDON MD Dec 28, 2016 13:53
[2016-12-28] MEDS ORDERED: METOPROLOL TART IMMED RELEASE 25 MG TABLET PO SCH (14:00)
[2016-12-28] MEDS ORDERED: FOLIC/VIT B COMP W-C (RENAL) TABLET. PO SCH (14:30)
[2016-12-28] MEDS: TRAMADOL 50 MG TABLET. PO PRN (14:56)
--- NOTE | 2016-12-28 15:23 | RAD ---
Removal of right IJ temporary hemodialysis catheter Ultrasound and fluoro guided placement of right IJ tunneled hemodialysis catheter Indication: 51-year-old male post PEA cardiac arrest, with acute kidney injury/acute renal failure. Ongoing hemodialysis is required. Conversion from temporary to tunneled hemodialysis catheter has been requested by renal.. Fluoro time: 0.2 minutes Kerma-Area Product: 0.2 Gycm2 Moderate sedation: 26 minutes moderate sedation was provided utilizing a total of 3 mg Versed and 150 mcg fentanyl, IV. The patient was appropriately monitored by a qualified independent observer throughout the time of moderate sedation. Antibiotic: A single dose of Ancef was administered within 1 hour of the procedure start time. Sterility: All elements of maximal sterile barrier technique, including the use of a cap, mask, sterile gown, sterile gloves, large sterile sheet, appropriate hand hygiene, and 2% chlorhexidine for cutaneous antisepsis (or acceptable alternative antiseptic per current guidelines) were utilized. Procedure: Informed consent was obtained from the patient. He was placed supine on the angiography table. Preliminary ultrasound examination of right neck revealed continued wide patency of right internal jugular vein, which was documented with a hard copy ultrasound image. The indwelling right IJ 14 American 20 cm Schon temporary hemodialysis catheter was then easily removed. Hemostasis was achieved with manual pressure over right internal jugular vein. Right neck and upper chest were then prepped and draped in the usual sterile fashion, utilizing all elements of maximal sterile barrier technique, as described above. Moderate sedation was provided with IV Versed and Fentanyl. 1 gram Ancef was given IV, prophylactically. Using aseptic technique and local anesthesia, a small skin incision was made lateral to right internal jugular vein, just above clavicle. Using aseptic technique, local anesthesia, and direct ultrasound guidance, a micropuncture needle was successfully introduced into right internal jugular vein. The micropuncture needle was then exchanged over a microguidewire for a micropuncture sheath, through which an Amplatz wire was advanced into IVC, under fluoroscopic control. A second small skin incision was then made along upper anterior aspect of right chest. A subcutaneous tunnel was then fashioned between the right chest and supraclavicular incisions. A 15.5 F 28 cm Dura Max dialysis catheter was pulled through the subcutaneous tunnel from inferior to superior, utilizing the tunneling device provided. The right IJ venostomy tract was then sequentially dilated and the 15.5 American dialysis catheter was easily advanced centrally through a 16 American peel-away sheath, and was positioned with its tip near cavoatrial junction utilizing fluoroscopic guidance. This catheter was demonstrated to flush and aspirate normally, was packed, and was secured at the right chest exit site utilizing 2-0 Prolene and sterile dressing. The small supraclavicular incision was closed with 4-0 Vicryl, Steri-Strips, and sterile dressing. Patient tolerated the procedure well without apparent complication. Satisfactory position of the dialysis catheter was confirmed with a single fluoroscopic spot image. Impression: Successful, uneventful ultrasound and fluoro guided placement of right IJ 15.5 F 28 cm Dura Max tunneled hemodialysis catheter, following removal of right IJ 14 American 20 cm Schon temporary hemodialysis catheter, as described.
--- NOTE | 2016-12-28 15:57 | PDOC ---
PROGRESS NOTES Assessment Assessment Seizure, provoked. Non epileptic. Cocaine, Cannabinoids, opiates, benzo positive in system. Metabolic encephalopathy. Respiratory failure. Renal failure on dialysis. Bilateral pulmonary infiltrate. No evidence of acute CVA this time. RECOMMENDATIONS/PLAN: Decreased Keppra to 125 mg bid and taper it off in 1-2 weeks. Treat medical diseases. Patient education for substances and drugs abstinence. Discussed in detail with his in all detail again in lengthy time at bedside multiple times. FU with PCP> Brain MRI 12/19: No acute CVA. EEG on 12/19: No seizure activity except the posterior dominant rhythm is slow for his age. HISTORY OF THE PRESENT ILLNESS: This is a 51-y-old AA male patient who was initailly admitted into the hospital due to medical diseases. He was intubated since but extubated on 12/18. He had several brief seizures or seizure like episodes and over night described as eye open, stiffness with some shaking movements for 20 seconds to 1 minute. He also had speech slurring and speech problems from time to time per nurse. No focalized motor deficits noted. He had episodes of so called aphasia, but he was able to write clearly. He resumed talking after talking to him. No seizure like episodes since 12/19. He has been doing fine since on the floor. PAST MEDICAL HISTORY: Please see above. PAST SURGERY HISTORY: No major surgery recently. ALLERGY: Reviewed. MEDICATIONS: Refer to [facility] FAMILY HISTORY: Non contributory. SOCIAL HISTORY: Lives with his family. Smoking, drinking, and illicit drug use. Cocaine, Cannabinoids, benzo, opiates positive in system. He uses drugs on regular basis. REVIEW OF SYSTEMS: Constitutional: Malnutrition. Head: No recent traumatic brain or head injury. Skin: No edema, or rash. Ear: No infection, tinnitus. Eyes: No vision loss or color blindness. Nose: No bleeding or purulent discharges. Hearing: No hearing decrease. Neck: No injury.. Cardiac: No OK, arrhythmia Pulmonary: Pneumonia this time. GI: No GI ulcer, GI bleeding. Urinary/genital: Renal failure this time. Endocrinologic: No cousin face, craniofacial dysmorphism, polydactyly Skeletomuscular: Generalized weakness. Neurological: see HP. Psychiatric: Drug use/abuse. Otherwise, not [id number] review of systems. PHYSICAL EXAMINATION: General appearance is in no acute distress. HEENT: Normocephalic and nontraumatic. Eyes, nose, ears, and throat are unremarkable. Neck is supple. No lymphadenopathy. No bruits are heard over the carotid artery. No crepitus. Cardiovascular: S1, S2, regular rate and rhythm. Pulmonary: Decreased to auscultation bilaterally. Abdomen: Bowel sounds are positive. Extremities: No rash, lesions, or edema. No restriction of range of motion NEUROLOGICAL EXAMINATION: Awake. He speaks clearly at exam. Partially oriented to time, and knows place and person. PERRL. EOMI. CN: no focal findings. Muscle tone: within normal. Muscle strength: 5 DTR: 2 Plantar reflex: Flexor response bilaterally Gait: Walks with walker in Hallway. Sensory exam: no abnormal findings. No obvious cerebellar signs elicited. F-T-N test not accurate. Objective Objective Vital Signs Date Time Temp Pulse Resp B/P Pulse Ox O2 Delivery O2 Flow Rate FiO2 12/28/16 15:00 98.4 86 20 109/61 100 Room Air 98.4 12/28/16 09:06 2.0 Intake and Output 12/28/16 07:00 Intake Total 350 ml Output Total 610 ml Balance -260 ml Intake Oral 350 ml Output Urine Total 610 ml Vitals Signs Vitals VS - Last 72 Hours, by Label Date Time Temp Pulse Resp B/P Pulse Ox O2 Delivery O2 Flow Rate FiO2 12/28/16 15:00 98.4 86 20 109/61 100 Room Air 98.4 12/28/16 14:57 88 118/55 12/28/16 14:56 100 Room Air 12/28/16 11:13 100 Room Air 12/28/16 10:45 98.0 88 20 118/55 98 Room Air 98.0 12/28/16 10:15 81 110/40 12/28/16 10:00 91 78/34 12/28/16 09:45 87 98/52 12/28/16 09:30 87 95/44 12/28/16 09:06 95 14 100 Nasal Cannula 2.0 12/28/16 09:04 14 100 Nasal Cannula 2.0 12/28/16 08:00 Room Air 2.0 12/28/16 07:32 100 Room Air 12/28/16 07:00 98.0 94 20 111/58 99 Room Air 98.0 12/28/16 03:02 Room Air 12/27/16 23:31 97.5 83 124/70 97 20 97.5 12/27/16 20:33 100 Room Air 12/27/16 20:09 Room Air 12/27/16 19:41 99.0 84 20 102/61 99 Room Air 99.0 12/27/16 16:03 Room Air 12/27/16 15:23 97.7 93 16 105/59 98 Room Air 97.7 12/27/16 11:03 Room Air 12/27/16 08:00 Room Air 12/27/16 07:47 97 Room Air Laboratory Laboratory Microbiology 12/07/16 Blood Culture - Final, Complete NO GROWTH AFTER 5 DAYS 12/07/16 Stool Culture - Final, Complete 12/07/16 Stool Culture Result 1 (NEFTALI) - Final, Complete 12/07/16 Campylobacter Antigen Assay - Final, Complete 12/07/16 Campylobactor Result 1 - Final, Complete 12/07/16 Shiga Toxin Test - Final, Complete 12/12/16 AFB Specimen Processing Tissue - Final, Resulted 12/12/16 Acid Fast Bacilli Culture, Resulted Pending 12/12/16 Gram Stain - Final, Resulted 12/12/16 Fungal Culture - Preliminary, Resulted 12/12/16 Fungal Culture Result 1 - Preliminary, Resulted 12/26/16 Urine Culture - Final, Complete 12/26/16 Urine Culture Result 1 (NEFTALI) - Final, Complete Medication Medications Current Medications Cefazolin Sodium (Ancef 1gm Ivpb For Omni) 50 ml @ 100 mls/hr 1X ONCE IV Last administered on 12/28/16t 09:05; Start 12/28/16 at 09:00; Stop 12/28/16 at 09: 29; Status DC Cefazolin Sodium (Ancef 1gm Ivpb For Omni) 50 ml @ As Directed STK-MED ONCE IV ; Start 12/28/16 at 08:26; Stop 12/28/16 at 08:27; Status DC Fentanyl Citrate (Fentanyl 2ml Vial) 100 mcg STK-MED ONCE .ROUTE ; Start at 08:46; Stop 12/28/16 at 08:47; Status DC Fentanyl Citrate 100 mcg 100 mcg STK-MED ONCE .ROUTE ; Start 12/28/16 at 08:26; Stop 12/28/16 at 08:27; Status DC Fentanyl Citrate 150 mcg 150 mcg 1X ONCE IV Last administered on 12/28/16 09: 04; Start 12/28/16 at 09:00; Stop 12/28/16 at 09:01; Status DC Folic Acid/ Multivitamins/Vit B12 (Nephro-Billy) 1 tab DAILY PO Last administered on 12/28/16 14:57; Start 12/28/16 at 14:30 Heparin Sodium (Porcine) 4,200 unit 1X ONCE INT CAT Last administered on 09:03; Start 12/28/16 at 09:00; Stop 12/28/16 at 09:01; Status DC Heparin Sodium (Porcine) 10,000 unit STK-MED ONCE .ROUTE ; Start 12/28/16 at 08: 15; Stop 12/28/16 at 08:16; Status DC Heparin Sodium/ Sodium Chloride 500 ml @ As Directed STK-MED ONCE .ROUTE ; Start 12/28/16 at 08:15; Stop 12/28/16 at 08:16; Status DC Heparin Sodium/ Sodium Chloride 1,000 unit 1X ONCE IART Last administered on 09:03; Start 12/28/16 at 09:00; Stop 12/28/16 at 09:01; Status DC Levetiracetam (Keppra) 125 mg BID PO Last administered on 12/28/16 09:52; Start 12/27/16 at 21:00 Lidocaine/ Epinephrine (Xylocaine 1%-Epi 1:100,000) 15 ml 1X ONCE IJ Last administered on 12/28/16 09:03; Start 12/28/16 at 09:00; Stop 12/28/16 at 09:01; Status DC Lidocaine/ Epinephrine 20 ml 20 ml STK-MED ONCE .ROUTE ; Start 12/28/16 at 08:15 ; Stop 12/28/16 at 08:16; Status DC Metoprolol Tartrate (Lopressor) 12.5 mg BID PO Last administered on 12/28/16 14 :57; Start 12/28/16 at 14:00 Midazolam HCl (Versed) 2 mg STK-MED ONCE .ROUTE ; Start 12/28/16 at 08:25; Stop 12/28/16 at 08:26; Status DC Midazolam HCl (Versed) 2 mg STK-MED ONCE .ROUTE ; Start 12/28/16 at 08:46; Stop 12/28/16 at 08:47; Status DC Midazolam HCl (Versed) 3 mg 1X ONCE IV Last administered on 12/28/16t 09:04; Start 12/28/16 at 09:00; Stop 12/28/16 at 09:01; Status DC Comment Review of Relevant I have reviewed the following items immanuel (where applicable) has been applied. COLLETTE MOYER MD Dec 28, 2016 15:57
--- NOTE | 2016-12-29 02:26 | DS ---
DATE OF DISCHARGE: 12/28/2016 CHIEF COMPLAINT: Weakness, pneumonia. HOSPITAL COURSE: The patient is a 51-year-old multidrug user who presented with shortness of breath and generalized weakness, was found with acute respiratory failure, thought to be pneumonia. In the night after his admission, the patient actually experienced cardiac arrest with PEA, but was resuscitated successfully. He was intubated at that time. With further progression in the ICU, an aspiration event was suspected. He was finally able to be extubated on 12/23/2016. Followup swallowing studies indeed showed silent aspiration and the patient was kept n.p.o. with several repeat studies until 12/26/2016 when he finally was able to tolerate thickened liquids without aspiration. In further evaluation after his cardiac arrest, his EF on echo was actually shown to be at 30-35%. Because of prolonged hypotension, he was not started on beta blockers, only aspirin. Beta blockers were added in low dose at the time of discharge. After his cardiac arrest, the patient suffered from acute kidney injury and actually required hemodialysis. Without any significant improvement, this is planned to continue post-discharge. PermCath for that purpose was placed on 12/27/2016. The patient had bilateral fifth toe dry gangrene as well as some blackening of the skin over various finger joints, which was attributed to poor circulation at the time of PEA. Vascular consult had been obtained with Dr. Alexandre and recommendation for followup in wound clinic post-discharge was made. PHYSICAL EXAMINATION: Please refer to note from same day, discharge date is 12/28/2016. DISCHARGE DISPOSITION: To home. DISCHARGE CONDITION: Improved. DISCHARGE DIAGNOSES: Aspiration with pneumonia, cardiac arrest with PEA, CHF, acute kidney injury, dry gangrene, cachexia and seizures secondary to multidrug abuse. DISCHARGE MEDICATIONS: Please refer to MAR. DISCHARGE INSTRUCTIONS: The patient will follow up with hemodialysis 3 times a week as arranged. He will make an appointment with wound clinic in 2 weeks for followup of his gangrenous areas. Nutrition will be thickened liquids and solids until repeat swallow study shows improvement. ALETA JAMIL MD DR: NISH/noé JOB#: [id number] / [id number] MELONY
== END 2016-12-28 16:17 | disposition home or self-care (01) | DRG 870 ==
LOC: ER 13:39 → 5 NORTH 15:09 → 1 WEST ICU 12-08 10:14 → 2 SOUTH 12-19 22:19 → 6 SOUTH 12-22 18:00
PROVIDERS: ADMIT Internal Medicine; ATTEND Internal Medicine
PROC: 0BH17EZ Insertion of Endotracheal Airway into Trachea, Via Natural or Artificial Opening (ICD-10-PCS; 2016-12-08)
PROC: 5A1955Z Respiratory Ventilation, Greater than 96 Consecutive Hours (ICD-10-PCS; 2016-12-08)
PROC: 0B9B8ZX Drainage of Left Lower Lobe Bronchus, Via Natural or Artificial Opening Endoscopic, Diagnostic (ICD-10-PCS; principal; 2016-12-12)
PROC: 0B968ZX Drainage of Right Lower Lobe Bronchus, Via Natural or Artificial Opening Endoscopic, Diagnostic (ICD-10-PCS; 2016-12-12)
PROC: 4A023N8 Measurement of Cardiac Sampling and Pressure, Bilateral, Percutaneous Approach (ICD-10-PCS; 2016-12-12)
PROC: B2111ZZ Fluoroscopy of Multiple Coronary Arteries using Low Osmolar Contrast (ICD-10-PCS; 2016-12-12)
PROC: B2161ZZ Fluoroscopy of Right and Left Heart using Low Osmolar Contrast (ICD-10-PCS; 2016-12-12)
PROC: 02HV33Z Insertion of Infusion Device into Superior Vena Cava, Percutaneous Approach (ICD-10-PCS; 2016-12-13)
PROC: 02H633Z Insertion of Infusion Device into Right Atrium, Percutaneous Approach (ICD-10-PCS; 2016-12-13)
PROC: 5A1D00Z (ICD-10-PCS; 2016-12-17)
PROC: B244ZZZ Ultrasonography of Right Heart (ICD-10-PCS; 2016-12-28)
PROC: 02PAX3Z Removal of Infusion Device from Heart, External Approach (ICD-10-PCS; 2016-12-28)
PROC: 0JH63XZ Insertion of Tunneled Vascular Access Device into Chest Subcutaneous Tissue and Fascia, Percutaneous Approach (ICD-10-PCS; 2016-12-28)
PROC: 06H033Z Insertion of Infusion Device into Inferior Vena Cava, Percutaneous Approach (ICD-10-PCS; 2016-12-28)
PROC: B5191ZA Fluoroscopy of Inferior Vena Cava using Low Osmolar Contrast, Guidance (ICD-10-PCS; 2016-12-28)
DX: A41.9 Sepsis, unspecified organism (principal); E43 Unspecified severe protein-calorie malnutrition; G93.41 Metabolic encephalopathy; I46.9 Cardiac arrest, cause unspecified; I50.21 Acute systolic (congestive) heart failure; J96.01 Acute respiratory failure with hypoxia; R65.21 Severe sepsis with septic shock; N17.0 Acute kidney failure with tubular necrosis; J18.9 Pneumonia, unspecified organism; E87.1 Hypo-osmolality and hyponatremia; I42.9 Cardiomyopathy, unspecified; I96 Gangrene, not elsewhere classified; Z68.1 Body mass index [BMI] 19.9 or less, adult; E78.5 Hyperlipidemia, unspecified; E83.51 Hypocalcemia; E87.5 Hyperkalemia; F14.10 Cocaine abuse, uncomplicated; F17.200 Nicotine dependence, unspecified, uncomplicated; F12.90 Cannabis use, unspecified, uncomplicated; G89.29 Other chronic pain; M54.5 Low back pain; J04.10 Acute tracheitis without obstruction; F41.9 Anxiety disorder, unspecified; I11.0 Hypertensive heart disease with heart failure; R13.10 Dysphagia, unspecified; R56.9 Unspecified convulsions; Z82.3 Family history of stroke; Z82.49 Family history of ischemic heart disease and other diseases of the circulatory system; Z99.2 Dependence on renal dialysis; D64.9 Anemia, unspecified
CPT/HCPCS: 31622; 36415; 36556; 36558; 36569; 36600; 70450; 70551; 71010; 74000; 74230; 76770; 76937; 77001; 80048; 80053; 80061; 80069; 81001; 82310; 82550; 82553; 82570; 82805; 82947; 83605; 83690; 83735; 83874; 83880; 84132; 84145; 84156; 84443; 84484; 85007; 85018; 85027; 85379; 85520; 85610; 85651; 86481; 86703; 86704; 86706; 86850; 86900; 86901; 87040; 87045; 87070; 87086; 87102; 87116; 87205; 87252; 87324; 87340; 87341; 87449; 87641; 87804; 88112; 93005; 93306; 93453; 93923; 94002; 94003; 94250; 94640; 94760; 95816; 96374; 96375; 99406; A4215; C1750; C1769; C1771; C1773; C1892; G0269; G0481; J0171; J0456; J0461; J0610; J0690; J0881; J1250; J1265; J1650; J1885; J1940; J1953; J2020; J2060; J2250; J2270; J2370; J2405; J2543; J2704; J3010; J3370; J3480; J3490; J7030; J7040; J7050; J7060; J7620; J7644; P9046; S0028; 92526; 92610; 92611; 97110; 97116; 97530; 97535; 99285-25